=== PATIENT | female | born 1960 | race Two or more races ===

== ENCOUNTER 2022-04-25 08:54 | Outpatient (REF) | payer MEDICAID, SELFPAY ==
[2022-04-25 09:37] LABS: COVID-19 Test Negative (Negative); IDNOW Serial# 16C4AD1C
== END 2022-04-25 08:55 | disposition home or self-care (01) ==
LOC: HO.LAB 08:54
PROVIDERS: Visit Provider Internal Medicine
DX: Z20.822 Contact with and (suspected) exposure to COVID-19 (principal)
CPT/HCPCS: 87635; C9803

== ENCOUNTER 2022-07-20 17:10 | Outpatient (REF) | payer MEDICAID, SELFPAY ==
--- NOTE | ~2022-07-20 | XR_ITS ---
EXAMINATION: XR LUMBOSACRAL SPINE WITH OBLIQUES CLINICAL INFORMATION: Pain COMPARISON: Previous x-ray December 2009 TECHNIQUE: AP, both oblique, and lateral views of the lumbar spine. Lateral view of the lumbosacral junction. FINDINGS: Bone alignment is normal. No fracture or dislocation. Multilevel degenerative spondylosis. Disc space narrowing at L5-S1. Lower lumbar spine facet arthritis. XR/XR lumbar spine 4V min IMPRESSION: Degenerative changes.
--- NOTE | ~2022-07-20 | XR_ITS ---
EXAMINATION: CERVICAL AND THORACIC SPINE X-RAYS CLINICAL INFORMATION: Pain COMPARISON: Previous cervical spine x-ray from 2010 TECHNIQUE: 6 views of the cervical spine including swimmer's view and oblique views and 2 views of the thoracic spine FINDINGS: Cervical spine: Bone alignment is normal. No fracture or dislocation. Degenerative spondylosis at C5-C6 normal disc spaces. Patent right-sided neural foramen. Patent left-sided neural foramen. Normal prevertebral soft tissues. Thoracic spine: Bone alignment is normal. No fracture or dislocation. Multilevel degenerative spondylosis and degenerative disc disease greatest in the mid thoracic spine. Paraspinal soft tissues are normal. XR/XR cervical spine 5V IMPRESSION: Cervical spine: Degenerative spondylosis at C5-C6 Thoracic spine: Multilevel degenerative changes greatest in the mid thoracic spine.
--- NOTE | ~2022-07-20 | XR_ITS ---
EXAMINATION: CERVICAL AND THORACIC SPINE X-RAYS CLINICAL INFORMATION: Pain COMPARISON: Previous cervical spine x-ray from 2010 TECHNIQUE: 6 views of the cervical spine including swimmer's view and oblique views and 2 views of the thoracic spine FINDINGS: Cervical spine: Bone alignment is normal. No fracture or dislocation. Degenerative spondylosis at C5-C6 normal disc spaces. Patent right-sided neural foramen. Patent left-sided neural foramen. Normal prevertebral soft tissues. Thoracic spine: Bone alignment is normal. No fracture or dislocation. Multilevel degenerative spondylosis and degenerative disc disease greatest in the mid thoracic spine. Paraspinal soft tissues are normal. XR/XR thoracic spine 2V IMPRESSION: Cervical spine: Degenerative spondylosis at C5-C6 Thoracic spine: Multilevel degenerative changes greatest in the mid thoracic spine.
== END 2022-07-20 17:11 | disposition home or self-care (01) ==
LOC: HO.XRAY 17:10
PROVIDERS: PCP Registered Nurse; Visit Provider Registered Nurse
DX: M54.9 Dorsalgia, unspecified (principal); G89.29 Other chronic pain; M54.2 Cervicalgia; M54.50 Low back pain, unspecified
CPT/HCPCS: 72050; 72070; 72110

== ENCOUNTER 2023-02-08 16:24 | Outpatient (REF) | payer MEDICAID, SELFPAY ==
--- NOTE | ~2023-02-08 | US_ITS ---
EXAMINATION: US VENOUS ULTRASOUND WITH DOPPLER LOWER EXTREMITY, LEFT CLINICAL INFORMATION: Pain COMPARISON: None available. TECHNIQUE: Ultrasound of the deep veins is performed from the hip to the calf with compression sonography and color and pulse Doppler assessment. Spectral analysis with color-flow imaging is performed. FINDINGS: There is normal venous compression and respiratory variation and augmented flow. The visualized common femoral vein, superficial femoral vein, profunda femoral vein, popliteal vein, and the trifurcation region shows no evidence of deep venous thrombosis. There is no significant popliteal fossa cyst. If the patient's symptoms persist, followup ultrasound in 5 days 7 days might be of value to exclude proximal propagation from a non-visualized calf vein. US/US venous duplex LE LT IMPRESSION: No DVT demonstrated in the left lower extremity.
== END 2023-02-08 16:25 | disposition home or self-care (01) ==
LOC: HO.US 16:24
PROVIDERS: PCP Registered Nurse; Visit Provider Registered Nurse
DX: M79.605 Pain in left leg (principal)
CPT/HCPCS: 93971

== ENCOUNTER → 2023-02-28 19:00 | Outpatient (BNV) | payer MEDICAID, SELFPAY | PROVIDERS: Visit Provider Internal Medicine | DX: G47.33 Obstructive sleep apnea (adult) (pediatric) (principal) | CPT/HCPCS: 95810 ==

== ENCOUNTER → 2023-02-28 20:30 | Outpatient (REF) | payer MEDICAID, SELFPAY | LOC: HO.SL 20:30 | PROVIDERS: Visit Provider Registered Nurse | DX: G47.33 Obstructive sleep apnea (adult) (pediatric) (principal) | CPT/HCPCS: 95810 ==

== ENCOUNTER 2023-03-07 14:36 | Emergency (ER) | payer MEDICAID, SELFPAY ==
--- NOTE | ~2023-03-07 | XR_ITS ---
EXAMINATION: XR TOES, RIGHT CLINICAL INFORMATION: Pain, right great toe COMPARISON: None available. TECHNIQUE: 3 views of the right toes were obtained. FINDINGS: There are no fractures or dislocations. No joint effusion is identified. No bone, joint or soft tissue abnormality is demonstrated. No radiopaque foreign body. XR/XR toe RT min 2V IMPRESSION: Unremarkable plain radiographs of the right great toe.
--- NOTE | ~2023-03-07 | XR_ITS ---
EXAMINATION: XR CHEST 2 VIEW CLINICAL INFORMATION: Chest COMPARISON: 04/30/2018 TECHNIQUE: PA and lateral views of the chest obtained. FINDINGS: The lungs are clear. There are no pleural effusions. The cardiomediastinal silhouette is normal. XR/XR chest 2V IMPRESSION: No acute cardiopulmonary disease.
--- NOTE | 2023-03-07 14:40 | ECG_ITS ---
Test Reason : cp Blood Pressure : / mmHG Vent. Rate : 080 BPM Atrial Rate : 080 BPM P-R Int : 150 ms QRS Dur : 084 ms QT Int : 378 ms P-R-T Axes : 020 006 052 degrees QTc Int : 435 ms Normal sinus rhythm Normal ECG When compared with ECG of 30-APR-2018 10:06, Criteria for Septal infarct are no longer Present Referred By: Generic ED Physician Electronically Signed By:Carlos Zamora
[2023-03-07 15:18] VITALS: BP 188/91; PULSE 75; RESP 18; TEMP 36.9; O2SAT 97; BMI 39.7
[2023-03-07 15:18] LABS: MANUAL DIFF FLAG NO
[2023-03-07 15:19] LABS: Basophils Percent Auto 0.4 % (0-2); Eosinophils Absolute Auto 0.3 X10*3/uL (0.0-0.4); Eosinophils Percent Auto 2.3 % (0-4); Hematocrit 39.4 % (37.0-47.0); Hemoglobin 13.4 g/dl (12.0-16.0); Imm Gran Abs Auto 0.06 X10*3/uL (0.00-0.03); Imm Gran Pct Auto 0.5 % (0.0-0.4); Lymphocytes Absolute Auto 3.1 X10*3/uL (1.2-4.9); Lymphocytes Percent Auto 27.4 % (20-40); Mean Corpuscular Hemoglobin 28.8 pg (27.0-33.0); Mean Corpuscular Volume 84.5 fL (80.0-98.0); Mean Platelet Volume 9.5 fL (9.4-12.3); Monocytes Absolute Auto 0.8 X10*3/uL (0.1-1.2); Monocytes Percent Auto 7.5 % (2-11); Neutrophils Absolute Auto 6.9 x10*3/uL (2.0-8.3); Neutrophils Percent Auto 61.9 % (45-73); Platelet Count 240 X10*3/uL (160-400); Red Blood Count 4.66 X10*6/uL (4.20-5.50); Red Cell Distribution Width 13.3 % (11.0-16.0); White Blood Count 11.1 X10*3/uL (4.8-10.8)
--- NOTE | 2023-03-07 15:21 | ED.CHESTPAIN ---
HPI - Chest Pain General Chief Complaint: Chest Pain Stated Complaint: chest pain/ L facial numbness Related Data Allergies Allergy/AdvReac Type Severity Reaction Status Date / Time penicillin V Allergy Unknown Verified 01/12/14 00:00 Penicillins Allergy Unknown Rash Unverified 04/14/20 15:58 Sulfa (Sulfonamide Allergy Unknown Verified 01/12/14 00:00 Antibiotics) sulfamethoxazole Allergy Unknown rash Unverified 04/14/20 15:58 trimethoprim Allergy Unknown rash Unverified 04/14/20 15:58 Physical Exam Vital Signs: Vital Signs: Last Vital Signs Temp 98.5 F 03/07/23 15:18 Pulse 75 03/07/23 15:18 Resp 18 03/07/23 15:18 BP 188/91 H 03/07/23 15:18 Pulse Ox 97 03/07/23 15:18 O2 Del Method Room Air 03/07/23 15:18 BMI result Body Mass Index 39.7 Course Course Course Narrative: This is an RME: Additional HPI, ROS, PE not included below will be deferred to primary provider. This is a [id number], with a hx diabetes, hypertension, hyperlipidemia, hypothyroidism, presenting to the emergency department for evaluation of chest pain which started last night. Patient describes this chest pain as a constant midsternal pain that causes some left-sided jaw numbness and tingling. Denies any nausea or vomiting. Endorses some shortness of breath. She took 1 dose of aspirin today. Patient hypertensive at 188/91. EKG normal sinus rhythm with no ST elevation depression. Patient also reported right great toe pain after hitting it against a wall. Patient has some ttp over PIP with some ecchymosis noted, range of motion is full and intact. Plan: Labs, EKG, chest Xray pending full evaluation by primary provider in the emergency department. Patient eloped prior to being evaluated by primary provider in the main emergency department. Medical Decision Making Lab Data 03/07/23 15:08 03/07/23 15:08 Labs: Lab Results 03/07/23 03/07/23 03/07/23 Range/Units 15:08 15:08 15:08 WBC 11.1 H (4.8-10.8) X10*3/uL RBC 4.66 (4.20-5.50) X10*6/uL Hgb 13.4 (12.0-16.0) g/dl Hct 39.4 (37.0-47.0) % MCV 84.5 (80.0-98.0) fL MCH 28.8 (27.0-33.0) pg MCHC 34.0 (31.0-35.0) g/dl RDW 13.3 (11.0-16.0) % Plt Count 240 (160-400) X10*3/uL MPV 9.5 (9.4-12.3) fL Immature Gran % (Auto) 0.5 H (0.0-0.4) % Neut % (Auto) 61.9 (45-73) % Lymph % (Auto) 27.4 (20-40) % [place] % (Auto) 7.5 (2-11) % Eos % (Auto) 2.3 (0-4) % Baso % (Auto) 0.4 (0-2) % Lymph # (Auto) 3.1 (1.2-4.9) X10*3/uL [place] # (Auto) 0.8 (0.1-1.2) X10*3/uL Eos # (Auto) 0.3 (0.0-0.4) X10*3/uL Baso # (Auto) 0.0 (0.0-0.2) X10*3/uL Abs Immat Gran (auto) 0.06 H (0.00-0.03) X10*3/uL Absolute Neuts (auto) 6.9 (2.0-8.3) x10*3/uL Absolute Nucleated RBC 0.000 (0.0-0.012) X10*3/uL Nucleated RBC % (auto) 0.0 (0.0-0.2) /100WBC Sodium 141 (135-145) mmol/L Potassium 3.7 (3.3-5.1) mmol/L Chloride 110 H (96-108) mmol/L Carbon Dioxide 23 (22-29) mmol/L Anion Gap 12 (12-20) BUN 17 H (9-16) mg/dL Creatinine 0.80 (0.5-1.4) mg/dL Estim Creat Clear Calc 66.1 Estimated GFR > 60 Random Glucose 160 H (60-115) mg/dL Calcium 9.1 (8.4-10.2) mg/dL Total Bilirubin 0.3 (0.0-1.0) mg/dL AST 16 (5-31) U/L ALT 16 (0-31) U/L Alkaline Phosphatase 88 (39-117) U/L Troponin I High Sens < 2.7 (<3.5-17.0) ng/L Total Protein 7.5 (6.5-8.0) g/dL Albumin 3.8 (3.5-5.0) g/dL Discharge Plan Discharge Clinical Impression: Chest pain Patient Disposition: Elopement Interventions: ED Discharge Assessment Last Done: 03/07/23 19:45 Discharge Date/Time: 03/07/23 19:45
[2023-03-07 15:34] LABS: Alanine Aminotransferase 16 U/L (0-31); Albumin Level 3.8 g/dL (3.5-5.0); Alkaline Phosphatase 88 U/L (39-117); Anion Gap 12 (12-20); Aspartate Amino Transferase 16 U/L (5-31); Bilirubin Total 0.3 mg/dL (0.0-1.0); Blood Urea Nitrogen 17 mg/dL (9-16); Calcium 9.1 mg/dL (8.4-10.2); Carbon Dioxide 23 mmol/L (22-29); Chloride 110 mmol/L (96-108); Creatinine Clr Calc Pharmacy 66.1; Estimated Glomerular Filt Rate > 60; Glucose Random 160 mg/dL (60-115); Potassium 3.7 mmol/L (3.3-5.1); Sodium 141 mmol/L (135-145); Total Protein 7.5 g/dL (6.5-8.0)
[2023-03-07 15:53] LABS: Troponin-I High Sensitivity < 2.7 ng/L (<3.5-17.0)
== END 2023-03-07 19:45 | disposition left against medical advice (07) ==
PROVIDERS: Emergency Provider Emergency Medicine
DX: R07.89 Other chest pain (principal); R20.0 Anesthesia of skin; M79.674 Pain in right toe(s); Z79.899 Other long term (current) drug therapy
CPT/HCPCS: 36415; 71046; 73660; 80053; 84484; 85025; 93005; 99283

== ENCOUNTER → 2023-03-07 14:40 | Outpatient (BNV) | payer MEDICAID, SELFPAY | PROVIDERS: Emergency Provider Emergency Medicine; Visit Provider Internal Medicine Cardiovascular Disease | DX: R07.9 Chest pain, unspecified (principal) | CPT/HCPCS: 93010 ==

== ENCOUNTER 2023-03-14 17:49 | Outpatient (REF) | payer MEDICAID, SELFPAY | END 2023-03-14 17:50 | disposition home or self-care (01) | LOC: HO.HHCLNP 17:49 | PROVIDERS: Visit Provider Registered Nurse | DX: N30.01 Acute cystitis with hematuria (principal) | CPT/HCPCS: 87086 ==

== ENCOUNTER 2023-04-25 15:06 | Emergency (ER) | payer OTHER, MEDICAID, SELFPAY ==
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
[2023-04-25 15:30] VITALS: BP 128/68; BP 140/78; PULSE 81; PULSE 88; RESP 18; TEMP 37; O2SAT 97; O2SAT 98; BMI 42.1
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
[2023-04-25 18:36] LABS: MANUAL DIFF FLAG NO
[2023-04-25 18:45] LABS: Basophils Percent Auto 0.3 % (0-2); Eosinophils Absolute Auto 0.3 X10*3/uL (0.0-0.4); Eosinophils Percent Auto 2.9 % (0-4); Hematocrit 38.5 % (37.0-47.0); Hemoglobin 12.8 g/dl (12.0-16.0); Imm Gran Abs Auto 0.04 X10*3/uL (0.00-0.03); Imm Gran Pct Auto 0.4 % (0.0-0.4); Lymphocytes Absolute Auto 2.9 X10*3/uL (1.2-4.9); Lymphocytes Percent Auto 29.1 % (20-40); Mean Corpuscular HGB Conc 33.2 g/dl (31.0-35.0); Mean Corpuscular Hemoglobin 28.7 pg (27.0-33.0); Mean Corpuscular Volume 86.3 fL (80.0-98.0); Mean Platelet Volume 9.8 fL (9.4-12.3); Monocytes Absolute Auto 0.8 X10*3/uL (0.1-1.2); Monocytes Percent Auto 8.1 % (2-11); Neutrophils Absolute Auto 5.9 x10*3/uL (2.0-8.3); Neutrophils Percent Auto 59.2 % (45-73); Platelet Count 261 X10*3/uL (160-400); Red Blood Count 4.46 X10*6/uL (4.20-5.50); Red Cell Distribution Width 13.6 % (11.0-16.0); White Blood Count 9.9 X10*3/uL (4.8-10.8)
[2023-04-25 18:48] LABS: Anion Gap 12 (12-20); Blood Urea Nitrogen 14 mg/dL (9-16); Calcium 9.6 mg/dL (8.4-10.2); Carbon Dioxide 26 mmol/L (22-29); Chloride 108 mmol/L (96-108); Creatinine Clr Calc Pharmacy 71.1; Estimated Glomerular Filt Rate > 60; Glucose Random 126 mg/dL (60-115); Potassium 4.4 mmol/L (3.3-5.1); Sodium 142 mmol/L (135-145)
[2023-04-25] MEDS: NaPROXEN 500 MG TABLET PO (19:05)
== END 2023-04-25 20:03 | disposition home or self-care (01) ==
PROVIDERS: Registered Nurse Emergency; Emergency Provider Emergency Medicine
DX: S20.219A Contusion of unspecified front wall of thorax, initial encounter (principal); V43.52XA Car driver injured in collision with other type car in traffic accident, initial encounter; Y93.89 Activity, other specified; Y92.414 Local residential or business street as the place of occurrence of the external cause; Y99.9 Unspecified external cause status
CPT/HCPCS: 36415; 71046; 80048; 85025; 93005; 99283; 99284

== ENCOUNTER 2023-06-24 12:49 | Emergency (ER) | payer MEDICAID, SELFPAY ==
--- NOTE | ~2023-06-24 | XR_ITS ---
EXAMINATION: XR CHEST CLINICAL INFORMATION: Chest pain, cough. COMPARISON: Chest radiograph 04/25/2023. TECHNIQUE: 2 views of the chest were obtained. FINDINGS: Normal appearance of the cardiomediastinal silhouette. Minimal peribronchial thickening with some equivocal early focal airspace opacities in the right lower lobe. No pleural effusion or pneumothorax. Mild thoracic spondylosis. No acute osseous findings. XR/XR chest 2V IMPRESSION: Findings suggestive of mild small airways disease with equivocal early infiltrate in the right lower lobe. Recommend clinical correlation for atypical pneumonia and short-term follow-up radiograph.
--- NOTE | 2023-06-24 12:56 | ECG_ITS ---
Test Reason : CHEST PAIN Blood Pressure : / mmHG Vent. Rate : 077 BPM Atrial Rate : 077 BPM P-R Int : 162 ms QRS Dur : 084 ms QT Int : 390 ms P-R-T Axes : 022 020 048 degrees QTc Int : 441 ms Normal sinus rhythm Normal ECG When compared with ECG of 25-APR-2023 17:38, No significant change was found Referred By: Tasha Wheat Electronically Signed By:PILO HUA MD
[2023-06-24 13:14] VITALS: BP 178/82; PULSE 76; RESP 16; TEMP 36.4; O2SAT 97; BMI 39.5
--- NOTE | 2023-06-24 13:17 | ED_ITS ---
HPI - Chest Pain General Chief Complaint: Chest Pain Stated Complaint: Chest pain Time Seen by Provider: 06/24/23 18:37 Source: patient Mode of arrival: ambulatory Limitations: no limitations History of Present Illness HPI narrative: Patient is a 63 old female who presents emergency department for evaluation of chest pain, shortness of breath, and cough. She reports a past few days she has been experiencing a dry nonproductive cough. Yesterday night she was feeling short of breath particularly with walking. Has diffuse anterior chest pain that is exacerbated with cough/deep breathing. She also expresses concern for intermittent dysuria over the past week. She states she has chronic microscopic hematuria, or primary care doctors referring her to see a Urologist for this. She denies known sick contacts, fevers, chills, nausea, vomiting, abdominal pain, back pain, gross hematuria. Related Data Previous Rx's Medication Instructions Recorded cyclobenzaprine 5 mg tablet 5 mg PO TID PRN muscle spasm #10 04/25/23 tabs lidocaine 5 % topical patch 1 patch topical DAILY #15 ea 04/25/23 levofloxacin 750 mg tablet 750 mg PO DAILY #4 tabs 06/24/23 Allergies Allergy/AdvReac Type Severity Reaction Status Date / Time penicillin V Allergy Unknown Anaphylaxis Verified 04/25/23 15:30 Penicillins Allergy Unknown Rash Verified 04/25/23 15:30 Sulfa (Sulfonamide Allergy Unknown Anaphylaxis Verified 04/25/23 15:30 Antibiotics) sulfamethoxazole Allergy Unknown rash Verified 04/25/23 15:30 trimethoprim Allergy Unknown rash Verified 04/25/23 15:30 Review of Systems 2 Review of Systems: Yes all other systems are reviewed and are negative PMFSH Past Medical History Attestation statement: The following information was validated with the patient. Source: old records reviewed Social History Smoked in Last 30 Days: No Use of substances other than those prescribed or required for medical reasons: No Advance Directives: No Advance Directives Information Provided: No Patient : No Physical Exam 2 Vital Signs: Vital Signs: Last Vital Signs Temp 97.6 F 06/24/23 13:14 Pulse 72 06/24/23 18:51 Resp 75 H 06/24/23 18:51 BP 151/82 H 06/24/23 18:51 Pulse Ox 99 06/24/23 18:51 O2 Del Method Room Air 06/24/23 18:51 BMI result Body Mass Index 39.5 Appearance: Alert.?Oriented to person, place and time. No acute distress.?Normal affect. Eyes: Pupils equal, round and reactive to light.? ENT: Pharynx normal.?? Neck: Normal inspection.? Neck supple.?? CVS: Heart sounds normal. Normal heart rate and rhythm.? Pulses normal.?? Respiratory: No respiratory distress.? Lung sounds clear to auscultation bilaterally.??palpable tenderness of the anterior and lateral chest wall Abdomen: Soft and non-tender. Normoactive bowel sounds. Skin: Skin warm and dry.? Normal skin color.? ? Extremities: No lower extremity edema.? No calf ttp? Neuro: Moves all extremities spontaneously. Sensation intact bilaterally. No focal neuro deficits. Ambulates with normal steady gait. Course Course Course Narrative: This is a rapid medical exam. Defer additional HPI, ROS, PE to primary provider. 63-year-old female with history of hypertension, diabetes presents the ER with complaints of chest pain and shortness of breath since last evening with dry cough. Will obtain labs, chest x-ray, EKG, viral testing. Vital signs stable Medications Administered Discontinued Medications Generic Name Dose Route Start Last Admin Trade Name Freq PRN Reason Stop Dose Admin Levofloxacin 750 mg 06/24/23 18:55 06/24/23 19:17 Levofloxacin 750 Mg Tablet PO 06/24/23 18:56 750 mg ONCE ONE Administration Medical Decision Making Medical Decision Making [facility] Narrative: Patient is a 63 old female past medical history of diabetes, hypertension, hyperlipidemia, hypothyroidism presenting to emergency department for evaluation of reproducible chest pain, nonproductive cough, intermittent shortness of breath as per HPI in addition to dysuria. At the time my examination she is overall well-appearing, nontoxic, afebrile. Wells negative unlikely pulmonary embolism. High sensitive troponin obtained and is below detectable limits, EKG revealing a normal sinus rhythm with ventricular rate of 77, QTC 441, no ST elevation, no ST depression, no T-wave inversion, given duration of symptoms unlikely ACS. CBC is without leukocytosis or anemia, CMP is overall unremarkable. Chest x-ray concerning for early infiltrate in the right lower lobe, given reported symptoms concern for atypical pneumonia, reports history of anaphylaxis to penicillin in the past, therefore will treat with the Levaquin, she received initial dosing while in the emergency department, and sent remainder of 4 day prescription to patient's pharmacy. She is in no respiratory distress. Trace bacteriuria in chronic microscopic hematuria, given she is symptomatic with dysuria, Levaquin will also cover urinary tract infection, culture was sent and will be followed. Discussed worrisome signs and symptoms that would warrant re-evaluation in the emergency department. At this time she is stable for discharge home. Differential Diagnosis Differential Diagnoses: The differential diagnosis associated with the presentation includes (As noted above) Admission/Observation Consideration of admission/observation: Escalation of care including admission/observation considered (See narrative above for further detail) Lab Data MDM Lab Attestation statement: I reviewed the patient's lab results. (See narrative for further detail) 06/24/23 14:13 06/24/23 14:13 Labs: Lab Results 06/24/23 06/24/23 Range/Units 14:13 19:19 WBC 10.6 (4.8-10.8) X10*3/uL RBC 4.31 (4.20-5.50) X10*6/uL Hgb 12.4 (12.0-16.0) g/dl Hct 37.1 (37.0-47.0) % MCV 86.1 (80.0-98.0) fL MCH 28.8 (27.0-33.0) pg MCHC 33.4 (31.0-35.0) g/dl RDW 13.7 (11.0-16.0) % Plt Count 239 (160-400) X10*3/uL MPV 9.8 (9.4-12.3) fL Immature Gran % (Auto) 0.4 (0.0-0.4) % Neut % (Auto) 66.0 (45-73) % Lymph % (Auto) 23.9 (20-40) % [place] % (Auto) 6.0 (2-11) % Eos % (Auto) 3.3 (0-4) % Baso % (Auto) 0.4 (0-2) % Lymph # (Auto) 2.5 (1.2-4.9) X10*3/uL [place] # (Auto) 0.6 (0.1-1.2) X10*3/uL Eos # (Auto) 0.4 (0.0-0.4) X10*3/uL Baso # (Auto) 0.0 (0.0-0.2) X10*3/uL Abs Immat Gran (auto) 0.04 H (0.00-0.03) X10*3/uL Absolute Neuts (auto) 7.0 (2.0-8.3) x10*3/uL Absolute Nucleated RBC 0.000 (0.0-0.012) X10*3/uL Nucleated RBC % (auto) 0.0 (0.0-0.2) /100WBC PT 12.5 (11.1-13.3) SEC INR 1.0 (0.9-1.1) Sodium 141 (135-145) mmol/L Potassium 3.7 (3.3-5.1) mmol/L Chloride 110 H (96-108) mmol/L Carbon Dioxide 25 (22-29) mmol/L Anion Gap 10 L (12-20) BUN 13 (9-16) mg/dL Creatinine 0.76 (0.5-1.4) mg/dL Estim Creat Clear Calc 69.4 Estimated GFR > 60 Random Glucose 159 H (60-115) mg/dL Calcium 8.9 D (8.4-10.2) mg/dL Total Bilirubin 0.2 (0.0-1.0) mg/dL Direct Bilirubin < 0.2 (0.0-0.5) mg/dL AST 15 (5-31) U/L ALT 16 (0-31) U/L Alkaline Phosphatase 74 (39-117) U/L Troponin I High Sens < 2.7 (<3.5-17.0) ng/L Total Protein 7.1 (6.5-8.0) g/dL Albumin 3.8 (3.5-5.0) g/dL Urine Color Yellow Urine Appearance Clear Urine pH 5.5 (5.0-9.0) Ur Specific [place] 1.020 (1.005-1.025) Urine Protein Negative (Neg-Trace) mg/dL Urine Glucose (UA) Negative (Negative) mg/dL Urine Ketones Negative (Negative) mg/dL Urine Blood Moderate (2+) H (Negative) Urine Nitrite Negative (Negative) Ur Leukocyte Esterase Small (1+) H (Negative) Urine RBC 3-5 H (0-2) /HPF Urine WBC 0-5 (0-5) /HPF Ur Squamous Epith Cells 3-5 (0-2) /HPF Urine Bacteria Trace (None Seen) Hyaline Casts 0-2 (0-2) /LPF Influenza Type A (PCR) NEGATIVE (Negative) Influenza Type B (PCR) NEGATIVE (Negative) RSV RNA Qual (PCR) NEGATIVE (Negative) SARS-CoV-2 RNA (RT-PCR) NEGATIVE (Negative) Independent Interpretation I performed an independent interpretation of an: Plain X-Ray (I personally interpreted chest x-ray and agree with radiologist impression or) Radiology Impression Discussion of test interpretation with radiology: I have reviewed the radiologist's reading. Radiologist Impression: XR/XR chest 2V IMPRESSION: Findings suggestive of mild small airways disease with equivocal early infiltrate in the right lower lobe. Recommend clinical correlation for atypical pneumonia and short-term follow-up radiograph. Independent Historian Clinical information obtained from an independent historian. History obtained from or confirmed by: Spouse (Present at bedside who confirms history) External Record Review External record reviewed: Outpatient record Prescription Management I considered prescription management with: Antibiotic Discharge Plan Discharge Clinical Impression: CAP (community acquired pneumonia) Qualifiers: Laterality: right Lung location: lower lobe of lung Qualified Code(s): J18.9 - Pneumonia, unspecified organism UTI (urinary tract infection) Qualifiers: Encounter type: initial encounter Patient Disposition: Home, Self-Care Instructions: Community Acquired Pneumonia (ED) Prescriptions: New levofloxacin 750 mg tablet 750 mg PO DAILY Qty: 4 0RF No Action cyclobenzaprine 5 mg tablet 5 mg PO TID PRN (Reason: muscle spasm) Qty: 10 0RF lidocaine 5 % adhesive patch,medicated 1 patch topical DAILY Qty: 15 0RF Rx Instructions: leave on most painful area for up to 12 hrs
[2023-06-24 14:17] LABS: MANUAL DIFF FLAG NO
[2023-06-24 14:20] LABS: Basophils Percent Auto 0.4 % (0-2); Eosinophils Absolute Auto 0.4 X10*3/uL (0.0-0.4); Eosinophils Percent Auto 3.3 % (0-4); Hematocrit 37.1 % (37.0-47.0); Hemoglobin 12.4 g/dl (12.0-16.0); Imm Gran Abs Auto 0.04 X10*3/uL (0.00-0.03); Imm Gran Pct Auto 0.4 % (0.0-0.4); Lymphocytes Absolute Auto 2.5 X10*3/uL (1.2-4.9); Lymphocytes Percent Auto 23.9 % (20-40); Mean Corpuscular HGB Conc 33.4 g/dl (31.0-35.0); Mean Corpuscular Hemoglobin 28.8 pg (27.0-33.0); Mean Corpuscular Volume 86.1 fL (80.0-98.0); Mean Platelet Volume 9.8 fL (9.4-12.3); Monocytes Absolute Auto 0.6 X10*3/uL (0.1-1.2); Platelet Count 239 X10*3/uL (160-400); Red Blood Count 4.31 X10*6/uL (4.20-5.50); Red Cell Distribution Width 13.7 % (11.0-16.0); White Blood Count 10.6 X10*3/uL (4.8-10.8)
[2023-06-24 14:27] LABS: Prothrombin Time 12.5 SEC (11.1-13.3)
[2023-06-24 14:34] LABS: Alanine Aminotransferase 16 U/L (0-31); Albumin Level 3.8 g/dL (3.5-5.0); Alkaline Phosphatase 74 U/L (39-117); Anion Gap 10 (12-20); Aspartate Amino Transferase 15 U/L (5-31); Bilirubin Direct < 0.2 mg/dL (0.0-0.5); Bilirubin Total 0.2 mg/dL (0.0-1.0); Blood Urea Nitrogen 13 mg/dL (9-16); Calcium 8.9 mg/dL (8.4-10.2); Carbon Dioxide 25 mmol/L (22-29); Chloride 110 mmol/L (96-108); Creatinine Clr Calc Pharmacy 69.4; Estimated Glomerular Filt Rate > 60; Glucose Random 159 mg/dL (60-115); Potassium 3.7 mmol/L (3.3-5.1); Sodium 141 mmol/L (135-145); Total Protein 7.1 g/dL (6.5-8.0)
[2023-06-24 14:45] LABS: Troponin-I High Sensitivity < 2.7 ng/L (<3.5-17.0)
[2023-06-24 14:59] LABS: Influenza A PCR NEGATIVE (Negative); Influenza B PCR NEGATIVE (Negative); Resp Syncy Virus RNA Qual PCR NEGATIVE (Negative); SARS COV2 PCR INHOUSE NEGATIVE (Negative)
[2023-06-24 18:51] VITALS: BP 151/82; PULSE 72; RESP 75; O2SAT 99
--- NOTE | 2023-06-24 18:55 | PC.NURSE ---
a&ox3, vss and up to date at this time. nsr on the cardiac moinitor. pt c/o 11/26- substernal chest pain that radiates to LUE and left side of jaw. pt also verbalizing sob/nausea. no sob/wob noted at this time. pt able to speak in full/clear sentences w.o difficulty. respirations even and unlabored. 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 resting comfortably in no apparent distress. bedside. call landin placed within reach.
[2023-06-24] MEDS: levoFLOXacin 750 MG TABLET PO (19:17)
--- NOTE | 2023-06-24 19:19 | PC.NURSE ---
medication administered per provider order. urine obtained/sent to lab.
[2023-06-24 19:45] LABS: Appearance Urine Clear; Color Urine Yellow; Glucose Urine UA Negative (Negative); Leukocyte Esterase Urine Small (1+) (Negative); Nitrite Urine Negative (Negative); PH 5.5 (5.0-9.0); UMIC TRIGGER UACC YES; Urine Blood Moderate (2+) (Negative); Urine Ketones Negative (Negative); Urine Protein Negative (Neg-Trace)
--- NOTE | 2023-06-24 20:01 | MHC.EDTECH ---
This tech assumed care of patient at 1900,hourly rounds and vitals completed,patient is resting comfortably at this time and call landin within reach with visitor at bedside.
[2023-06-24 20:03] LABS: Bacteria Urine Trace (None Seen); Hyaline Casts Urine 0-2 /LPF (0-2); UACC Culture Trigger YES; WBC Urine 0-5 /HPF (0-5)
[2023-06-24 20:04] VITALS: BP 155/77; PULSE 72; RESP 18; TEMP 36.4; O2SAT 99
== END 2023-06-24 20:20 | disposition home or self-care (01) ==
PROVIDERS: Nurse Practitioner Family; Emergency Provider Emergency Medicine
DX: J18.8 Other pneumonia, unspecified organism (principal); N39.0 Urinary tract infection, site not specified; Z20.822 Contact with and (suspected) exposure to COVID-19; Z20.828 Contact with and (suspected) exposure to other viral communicable diseases; R06.02 Shortness of breath; E11.9 Type 2 diabetes mellitus without complications; I10 Essential (primary) hypertension; E78.5 Hyperlipidemia, unspecified
CPT/HCPCS: 0241U; 71046; 80048; 80076; 81001; 84484; 85025; 85610; 87086; 93005; 99283; 99285

== ENCOUNTER 2023-09-23 16:10 | Outpatient (REF) | payer MEDICAID, SELFPAY ==
--- NOTE | ~2023-09-23 | XR_ITS ---
EXAMINATION: XR CHEST CLINICAL INFORMATION: Rib pain anteriorly on the left side radiating to the abdomen COMPARISON: Chest x-ray on 06/24/2023 TECHNIQUE: 2 views of the chest were obtained. FINDINGS: No significant abnormality is noted involving the heart, lungs, mediastinum, bony thorax or soft tissues. XR/XR chest 2V IMPRESSION: Unremarkable examination.
== END 2023-09-23 16:11 | disposition home or self-care (01) ==
LOC: HO.HHCX 16:10
PROVIDERS: Visit Provider Student in an Organized Health Care Education/Training Program
DX: R07.81 Pleurodynia (principal)
CPT/HCPCS: 71046

== ENCOUNTER 2023-11-06 13:45 | Emergency (ER) | payer MEDICAID, SELFPAY ==
--- NOTE | ~2023-11-06 | CT_ITS ---
EXAMINATION: CT ABDOMEN AND PELVIS WITHOUT CONTRAST CLINICAL INFORMATION: Right upper quadrant abdominal pain COMPARISON: Abdominal ultrasound performed same day and CT scan from 01/23/2011 TECHNIQUE: Multidetector volumetric imaging was performed from the superior aspect of the liver through the pubic symphysis. Sagittal and coronal reformatted images were obtained on the technologist's workstation. This CT examination was performed using dose optimization techniques as appropriate, variously including the following: *Automated exposure control *Adjustment of mA and/or kV according to patient size (this includes techniques or standardized protocols for targeted exams where dose is matched to indication/reason for exam; i.e. extremities or head) *Use of iterative reconstruction technique DLP: 631 mGy-cm FINDINGS: LUNG BASES: The visualized lung bases are unremarkable. LIVER, GALLBLADDER, AND BILIARY TREE: The liver is normal in size, shape, and attenuation. No focal hepatic lesion or biliary ductal dilatation is present. Liver is decompressed. No calcified stones, wall thickening or inflammatory stranding PANCREAS: Unremarkable. SPLEEN: Calcified granuloma seen within the spleen. ADRENAL GLANDS: Unremarkable. KIDNEYS AND URETERS: The kidneys are normal in size, shape, and attenuation. No hydronephrosis, hydroureter, or calculi seen. No perinephric stranding. BLADDER: Unremarkable. GASTROINTESTINAL TRACT: The small and large bowel are unremarkable. The appendix is unremarkable. Nonspecific mesenteric stranding and small lymph nodes again seen which is unchanged compared to 2011. ABDOMINAL WALL: Small fat-containing umbilical hernia. LYMPH NODES: Normal. VASCULAR: Unremarkable. PELVIC VISCERA: The uterus and adnexa are unremarkable. OSSEOUS STRUCTURES: Posterior facet joint arthropathy is seen in the lumbar spine. CT/CT abdomen pelvis wo IV con IMPRESSION: No acute process Fleischner guidelines were followed.
--- NOTE | ~2023-11-06 | US_ITS ---
EXAMINATION: US ABDOMEN LIMITED CLINICAL INFORMATION: Right upper quadrant pain. COMPARISON: 02/10/2015 TECHNIQUE: Real-time imaging of the right upper quadrant abdominal viscera. FINDINGS: PANCREAS: Limited visualization. LIVER: There is diffuse increased liver parenchymal echogenicity, consistent with hepatic steatosis. No definite focal lesion is seen, but evaluation is limited due to poor sound beam penetration through the coarse echogenic liver parenchyma. There is no intrahepatic biliary duct dilatation seen. GALLBLADDER: The gallbladder is contracted and difficult to evaluate. COMMON BILE DUCT: Normal in caliber measuring 0.3 cm in diameter. RIGHT KIDNEY: No hydronephrosis. No renal calculi or focal parenchymal lesions. The kidney measures 10.2 cm in maximum dimension. FREE FLUID: None. US/US abdomen limited IMPRESSION: Limited evaluation of the gallbladder due to nonfasting state. Hepatic steatosis.
--- NOTE | ~2023-11-06 | XR_ITS ---
EXAMINATION: XR CHEST CLINICAL INFORMATION: Substernal chest pain COMPARISON: Previous chest x-ray August 2023 TECHNIQUE: 2 views of the chest were obtained. FINDINGS: No significant abnormality is noted involving the heart, lungs, mediastinum, bony thorax or soft tissues. Degenerative changes of the spine. XR/XR chest 2V IMPRESSION: No evidence for acute disease in the chest.
--- NOTE | 2023-11-06 13:47 | ECG_ITS ---
Test Reason : cp Blood Pressure : / mmHG Vent. Rate : 078 BPM Atrial Rate : 078 BPM P-R Int : 164 ms QRS Dur : 084 ms QT Int : 396 ms P-R-T Axes : 021 019 054 degrees QTc Int : 451 ms Normal sinus rhythm Normal ECG When compared with ECG of 24-JUN-2023 13:02, No significant change was found Referred By: Generic ED Physician Electronically Signed By:Carlos Zamora
[2023-11-06 15:01] VITALS: BP 119/59; PULSE 70; RESP 18; TEMP 36; O2SAT 97; BMI 38.9
--- NOTE | 2023-11-06 15:01 | ED_ITS ---
HPI - Chest Pain General Chief Complaint: Chest Pain Stated Complaint: chest pain Time Seen by Provider: 11/07/23 04:36 Source: patient Mode of arrival: ambulatory Limitations: no limitations History of Present Illness HPI narrative: 63-year-old female with history of diabetes mellitus, hypertension, hyperlipidemia who presents emergency department for evaluation of chest pain. Patient's pain started at 09:30 hours and woke her up from sleep. She states the pain is a sharp pain and she points to her mid sternum when asked to localize the pain. The patient had associated dizziness and shortness of breath. She denied pain radiating to her neck, jaw, arms, diaphoresis nausea or vomiting. She states she has had similar pain in the past. She denied fever, chills, rhinorrhea, cough. Patient states she has been having intermittent abdominal pain the past 2-3 days, she points to her upper abdomen when asked to localize the pain. Time my evaluation she states that her abdominal pain had resolved. Patient went to [facility] and was found to have right upper quadrant tenderness. Therefore she was referred to the emergency department for evaluation of possible biliary causes for her symptoms Related Data Previous Rx's ?Medication ?Instructions ?Recorded cyclobenzaprine 5 mg tablet 5 mg PO TID PRN muscle spasm #10 04/25/23 tabs lidocaine 5 % topical patch 1 patch topical DAILY #15 ea 04/25/23 levofloxacin 750 mg tablet 750 mg PO DAILY #4 tabs 06/24/23 Allergies Allergy/AdvReac Type Severity Reaction Status Date / Time penicillin V Allergy Unknown Anaphylaxis Verified 11/06/23 15:04 Penicillins Allergy Unknown Rash Verified 11/06/23 15:04 Sulfa (Sulfonamide Allergy Unknown Anaphylaxis Verified 11/06/23 15:04 Antibiotics) sulfamethoxazole Allergy Unknown rash Verified 11/06/23 15:04 trimethoprim Allergy Unknown rash Verified 11/06/23 15:04 Review of Systems 2 Review of Systems: Yes all other systems are reviewed and are negative [facility] Past Medical History [facility] Narrative: Social history: She denies tobacco, alcohol and drug use Social History Social History Smoked in Last 30 Days: No Use of substances other than those prescribed or required for medical reasons: No Advance Directives: No Patient : No Physical Exam 2 Vital Signs: Vital Signs: Last Vital Signs Temp 97.3 F 11/07/23 05:54 Pulse 67 11/07/23 05:54 Resp 14 11/07/23 05:54 BP 127/55 L 11/07/23 05:54 Pulse Ox 98 11/07/23 05:54 O2 Del Method Room Air 11/07/23 05:54 BMI result Body Mass Index 38.9 Vital signs were normal Exam: General: Awake, alert in no distress Head: Normocephalic, atraumatic EENT: PERRL, Lids normal, sclera normal, conjunctiva normal, nose normal , ears normal, throat without erythema or exudates Neck: Supple, no adenopathy Lung: breath sounds symmetric, no wheezing, rales or rhonchi Chest: symmetric movement, nontender Heart: regular rate and rhythm, normal S1, S2 no murmurs or rubs Abdomen: soft, mild to moderate RUQ and RLQ tenderness nondistended, normal bowel sounds Back: no vertebral tenderness, no CVAT Extremities: no deformities, moves all extremities symmetrically Neuro: Awake, alert, oriented, normal speech, cranial nerves intact, moves all extremities symmetrically Psych: Pleasant, cooperative Course Course Course Narrative: RME:?63 yo female here for eval of sharp substernal chest pain beginning after waking up from a nap today. this lasted approximately 20 minutes. took an 81mg aspirin and then went to [facility]. she was noted to have tenderness to right upper quadrant. She admits to abdominal pain for the past 3 days. Denies nausea/vomiting/diarrhea. she was sent here for concern of gallbladder pathology after she had positive Dumont's sign. Pain is not worse with eating. Labs, EKG, chest x-ray, abdominal ultrasound ordered. Full HPI, ROS and PE to be performed by the primary ED provider. Medications Administered Discontinued Medications Generic Name Dose Route Start Last Admin Trade Name Freq PRN Reason Stop Dose Admin Acetaminophen 650 mg 11/06/23 22:00 11/06/23 22:03 Acetaminophen 325 Mg Tablet PO 11/06/23 22:01 650 mg ONCE ONE Administration Medical Decision Making Medical Decision Making [facility] Narrative: 63-year-old female with history of diabetes mellitus, hypertension, hyperlipidemia who presents emergency department for evaluation of chest pain. Patient's pain started at 09:30 hours and woke her up from sleep. She states the pain is a sharp pain and she points to her mid sternum when asked to localize the pain. The patient had associated dizziness and shortness of breath. She denied pain radiating to her neck, jaw, arms, diaphoresis nausea or vomiting. Patient is also complaining of upper abdominal. She was seen at [facility] see urgent care noted to have right upper quadrant tenderness and sent to the emergency department for evaluation. Vital signs were unremarkable. Physical examination revealed no chest tenderness but she did have mild to moderate right upper and right lower quadrant tenderness. Differential diagnosis: ?Includes but is not limited to myocardial infarction, myocardial ischemia, musculoskeletal pain, gallbladder disease, biliary disease, gastritis, GERD Following evaluation was ordered: CBC, CMP, troponin, lipase, ultrasound limited, CT scan of the abdomen pelvis IV contrast, EKG Patient was initially treated with the following: Acetaminophen 650 mg orally Course: My interpretation patient's laboratory evaluation as follows: CBC was normal. CMP was normal. Lipase was normal. First troponin was below detectable limits, 3 hour repeat troponin was below detectable limits. EKG was unremarkable Right upper quadrant ultrasound revealed no significant biliary disease or other findings to explain her pain CT scan abdomen pelvis IV contrast was also unremarkable with no clear etiology for pain Patient does have fibromyalgia and this may be the cause for pain, she was advised to continue taking Tylenol for pain and to follow-up with her PCP for re-evaluation and return if her symptoms get worse Admission/Observation Consideration of admission/observation: Escalation of care including admission/observation considered Lab Data MDM Lab Attestation statement: I reviewed the patient's lab results. 11/06/23 16:41 11/06/23 16:41 Labs: Lab Results 11/06/23 11/07/23 Range/Units 16:41 04:06 WBC 11.0 H (4.8-10.8) X10*3/uL RBC 4.92 (4.20-5.50) X10*6/uL Hgb 14.3 (12.0-16.0) g/dl Hct 42.2 (37.0-47.0) % MCV 85.8 (80.0-98.0) fL MCH 29.1 (27.0-33.0) pg MCHC 33.9 (31.0-35.0) g/dl RDW 13.7 (11.0-16.0) % Plt Count 258 (160-400) X10*3/uL MPV 9.8 (9.4-12.3) fL Immature Gran % (Auto) 0.5 H (0.0-0.4) % Neut % (Auto) 59.5 (45-73) % Lymph % (Auto) 30.1 (20-40) % [place] % (Auto) 6.8 (2-11) % Eos % (Auto) 2.7 (0-4) % Baso % (Auto) 0.4 (0-2) % Lymph # (Auto) 3.3 (1.2-4.9) X10*3/uL [place] # (Auto) 0.8 (0.1-1.2) X10*3/uL Eos # (Auto) 0.3 (0.0-0.4) X10*3/uL Baso # (Auto) 0.0 (0.0-0.2) X10*3/uL Abs Immat Gran (auto) 0.05 H (0.00-0.03) X10*3/uL Absolute Neuts (auto) 6.6 (2.0-8.3) x10*3/uL Absolute Nucleated RBC 0.000 (0.0-0.012) X10*3/uL Nucleated RBC % (auto) 0.0 (0.0-0.2) /100WBC Sodium 141 (135-145) mmol/L Potassium 4.1 (3.3-5.1) mmol/L Chloride 109 H (96-108) mmol/L Carbon Dioxide 25 (22-29) mmol/L Anion Gap 11 L (12-20) BUN 20 H (9-16) mg/dL Creatinine 0.79 (0.5-1.4) mg/dL Estim Creat Clear Calc 66.1 Estimated GFR > 60 Random Glucose 137 H (60-115) mg/dL Calcium 9.3 (8.4-10.2) mg/dL Magnesium 1.9 (1.6-2.6) mg/dL Total Bilirubin 0.2 (0.0-1.0) mg/dL AST 15 (5-31) U/L ALT 17 (0-31) U/L Alkaline Phosphatase 94 (39-117) U/L Troponin I High Sens < 2.7 < 2.7 (<3.5-17.0) ng/L Total Protein 8.1 H (6.5-8.0) g/dL Albumin 4.0 (3.5-5.0) g/dL Lipase 34 (8-78) U/L Independent Interpretation I performed an independent interpretation of an: EKG Interpretation: My independent interpretation patient's 12 EKG done that 15:57 hours is as follows: Normal sinus rhythm with a rate of 78, normal TN interval, QRS duration QTC interval, no ST segment elevation, no ST segment depression, no significant T-wave abnormalities, no PACs, no PVCs-this is a normal EKG Radiology Impression Discussion of test interpretation with radiology: I have reviewed the radiologist's reading. Radiologist Impression: US abdomen limited IMPRESSION: Limited evaluation of the gallbladder due to nonfasting state. Hepatic steatosis. Dictated By: Blanco Leon MD CT abdomen pelvis wo IV con IMPRESSION: No acute process Fleischner guidelines were followed. Dictated By: Jose Ellis MD XR chest 2V IMPRESSION: No evidence for acute disease in the chest. Dictated By: Wanda Kovacs MD Chronic Conditions Patient?s care impacted by: Diabetes, Hypertension and Other (Fibromyalgia) Discharge Plan Discharge Clinical Impression: Chest pain, Abdominal pain Patient Disposition: Home, Self-Care Instructions: Chest Pain (ED) Additional Instructions: Your CT scan of the abdomen pelvis, abdominal ultrasound and chest x-rays were normal. The EKG did not reveal any evidence for heart attack and your troponins were negative which is very reassuring. At this time I believe that your pain is due to either your fibromyalgia or muscle/joint pain of your chest. Continue taking your medications as prescribed Take Tylenol (acetaminophen) 500 mg pills, 2 pills every 6 hours as needed for pain or fever. Follow-up with your doctor in 2 days. Please return to the emergency department if your symptoms get worse or if you develop any symptoms that are concerning to you. Prescriptions: No Action levofloxacin 750 mg tablet 750 mg PO DAILY Qty: 4 0RF cyclobenzaprine 5 mg tablet 5 mg PO TID PRN (Reason: muscle spasm) Qty: 10 0RF lidocaine 5 % adhesive patch,medicated 1 patch topical DAILY Qty: 15 0RF Rx Instructions: leave on most painful area for up to 12 hrs Interventions: ED Discharge Assessment Last Done: 11/07/23 05:54 Discharge Date/Time: 11/07/23 05:01 Print Language: Arabic
[2023-11-06 16:46] LABS: MANUAL DIFF FLAG NO
[2023-11-06 16:47] LABS: Basophils Percent Auto 0.4 % (0-2); Eosinophils Absolute Auto 0.3 X10*3/uL (0.0-0.4); Eosinophils Percent Auto 2.7 % (0-4); Hematocrit 42.2 % (37.0-47.0); Hemoglobin 14.3 g/dl (12.0-16.0); Imm Gran Abs Auto 0.05 X10*3/uL (0.00-0.03); Imm Gran Pct Auto 0.5 % (0.0-0.4); Lymphocytes Absolute Auto 3.3 X10*3/uL (1.2-4.9); Lymphocytes Percent Auto 30.1 % (20-40); Mean Corpuscular HGB Conc 33.9 g/dl (31.0-35.0); Mean Corpuscular Hemoglobin 29.1 pg (27.0-33.0); Mean Corpuscular Volume 85.8 fL (80.0-98.0); Mean Platelet Volume 9.8 fL (9.4-12.3); Monocytes Absolute Auto 0.8 X10*3/uL (0.1-1.2); Monocytes Percent Auto 6.8 % (2-11); Neutrophils Absolute Auto 6.6 x10*3/uL (2.0-8.3); Neutrophils Percent Auto 59.5 % (45-73); Platelet Count 258 X10*3/uL (160-400); Red Blood Count 4.92 X10*6/uL (4.20-5.50); Red Cell Distribution Width 13.7 % (11.0-16.0)
[2023-11-06 17:11] LABS: Alanine Aminotransferase 17 U/L (0-31); Alkaline Phosphatase 94 U/L (39-117); Anion Gap 11 (12-20); Aspartate Amino Transferase 15 U/L (5-31); Bilirubin Total 0.2 mg/dL (0.0-1.0); Blood Urea Nitrogen 20 mg/dL (9-16); Calcium 9.3 mg/dL (8.4-10.2); Carbon Dioxide 25 mmol/L (22-29); Chloride 109 mmol/L (96-108); Creatinine Clr Calc Pharmacy 66.1; Estimated Glomerular Filt Rate > 60; Glucose Random 137 mg/dL (60-115); Lipase 34 U/L (8-78); Magnesium 1.9 mg/dL (1.6-2.6); Potassium 4.1 mmol/L (3.3-5.1); Sodium 141 mmol/L (135-145); Total Protein 8.1 g/dL (6.5-8.0)
[2023-11-06 17:20] LABS: Troponin-I High Sensitivity < 2.7 ng/L (<3.5-17.0)
[2023-11-06 18:04] VITALS: BP 146/66; PULSE 75; RESP 18; TEMP 36.7; O2SAT 97
[2023-11-06] MEDS: Acetaminophen 325 MG TABLET 650 MG PO (22:03)
[2023-11-06 22:04] VITALS: BP 158/85; PULSE 66; RESP 18; TEMP 36.8; O2SAT 97
[2023-11-07 00:46] VITALS: BP 149/59; PULSE 69; RESP 17; TEMP 36.3; O2SAT 100
[2023-11-07 01:37] VITALS: PULSE 80
[2023-11-07 04:33] LABS: Troponin-I High Sensitivity < 2.7 ng/L (<3.5-17.0)
[2023-11-07 04:38] VITALS: BP 137/55; PULSE 72; RESP 17; TEMP 36.3; O2SAT 98
[2023-11-07 05:54] VITALS: BP 127/55; PULSE 67; RESP 14; TEMP 36.3; O2SAT 98
== END 2023-11-07 05:01 | disposition home or self-care (01) ==
PROVIDERS: Physician Assistant Medical; Emergency Provider Emergency Medicine Emergency Medical Services; PCP Family Medicine
DX: R07.89 Other chest pain (principal); R10.30 Lower abdominal pain, unspecified; R06.02 Shortness of breath; R42 Dizziness and giddiness; I10 Essential (primary) hypertension; Z79.899 Other long term (current) drug therapy
CPT/HCPCS: 36415; 71046; 74176; 76705; 80053; 83690; 83735; 84484; 85025; 93005; 99284; 99285

== ENCOUNTER → 2023-11-06 13:47 | Outpatient (BNV) | payer MEDICAID, SELFPAY | PROVIDERS: Emergency Provider Emergency Medicine Emergency Medical Services; PCP Family Medicine; Visit Provider Internal Medicine Cardiovascular Disease | DX: R07.9 Chest pain, unspecified (principal) | CPT/HCPCS: 93010 ==

== ENCOUNTER 2023-11-26 01:05 | Emergency (ER) | payer MEDICAID, SELFPAY ==
[2023-11-26 01:21] VITALS: BP 153/89; PULSE 72; RESP 18; TEMP 36.7; O2SAT 98; BMI 37.1
[2023-11-26 01:38] LABS: MANUAL DIFF FLAG NO
[2023-11-26 01:39] LABS: Basophils Percent Auto 0.3 % (0-2); Eosinophils Absolute Auto 0.4 X10*3/uL (0.0-0.4); Eosinophils Percent Auto 2.6 % (0-4); Hematocrit 37.2 % (37.0-47.0); Hemoglobin 12.9 g/dl (12.0-16.0); Imm Gran Abs Auto 0.06 X10*3/uL (0.00-0.03); Imm Gran Pct Auto 0.5 % (0.0-0.4); Lymphocytes Absolute Auto 4.3 X10*3/uL (1.2-4.9); Lymphocytes Percent Auto 32.8 % (20-40); Mean Corpuscular HGB Conc 34.7 g/dl (31.0-35.0); Mean Corpuscular Hemoglobin 29.1 pg (27.0-33.0); Mean Platelet Volume 9.5 fL (9.4-12.3); Monocytes Percent Auto 7.6 % (2-11); Neutrophils Absolute Auto 7.5 x10*3/uL (2.0-8.3); Neutrophils Percent Auto 56.2 % (45-73); Platelet Count 238 X10*3/uL (160-400); Red Blood Count 4.43 X10*6/uL (4.20-5.50); Red Cell Distribution Width 13.9 % (11.0-16.0); White Blood Count 13.3 X10*3/uL (4.8-10.8)
[2023-11-26 01:50] LABS: Appearance Urine Cloudy; Color Urine Yellow; Glucose Urine UA Negative (Negative); Leukocyte Esterase Urine Large (3+) (Negative); Nitrite Urine Negative (Negative); UMIC TRIGGER UACC YES; Urine Blood Moderate (2+) (Negative); Urine Ketones Negative (Negative); Urine Protein Negative (Neg-Trace)
[2023-11-26 01:55] LABS: Bacteria Urine Trace (None Seen); Hyaline Casts Urine 0-2 /LPF (0-2); UACC Culture Trigger YES; WBC Urine >50 /HPF (0-5)
[2023-11-26 01:56] LABS: Alanine Aminotransferase 16 U/L (0-31); Albumin Level 3.8 g/dL (3.5-5.0); Alkaline Phosphatase 93 U/L (39-117); Anion Gap 13 (12-20); Aspartate Amino Transferase 15 U/L (5-31); Bilirubin Total 0.2 mg/dL (0.0-1.0); Blood Urea Nitrogen 16 mg/dL (9-16); Calcium 8.8 mg/dL (8.4-10.2); Carbon Dioxide 23 mmol/L (22-29); Chloride 108 mmol/L (96-108); Creatinine Clr Calc Pharmacy 74.9; Estimated Glomerular Filt Rate > 60; Glucose Random 134 mg/dL (60-115); Lipase 18 U/L (8-78); Potassium 3.5 mmol/L (3.3-5.1); Sodium 140 mmol/L (135-145); Total Protein 7.7 g/dL (6.5-8.0)
--- NOTE | 2023-11-26 01:57 | ED.ABDPAIN ---
HPI - Abdominal Pain General Chief Complaint: Abdominal Pain Stated Complaint: Abd pain Time Seen by Provider: 11/26/23 01:53 Source: patient and old records reviewed Mode of arrival: ambulatory Limitations: no limitations History of Present Illness HPI narrative: 63 yo female with chronic abdominal pain should be on PPI but has no refills here with c/o abdominal pain when she eats does not take NSAIDs just had US and CT scan of abdomen that did not show acute findings on 11/05. She comes in with c/o persistent symptoms and acid symptoms. MD elicited complaint: abdominal pain Pertinent past history: gastritis Onset (ago): month(s) Pain Consistency: intermittent Location: epigastric Severity: moderate Quality: fullness and burning Radiation: none Migration to: no migration Exacerbating factors: eating Relieving factors: nothing Context: history of similar episodes Associated symptoms: denies other symptoms Related Data Previous Rx's ?Medication ?Instructions ?Recorded cyclobenzaprine 5 mg tablet 5 mg PO TID PRN muscle spasm #10 04/25/23 tabs lidocaine 5 % topical patch 1 patch topical DAILY #15 ea 04/25/23 levofloxacin 750 mg tablet 750 mg PO DAILY #4 tabs 06/24/23 nitrofurantoin 100 mg PO BID 7 days #14 caps 11/26/23 monohydrate/macrocrystals 100 mg capsule (Macrobid) omeprazole 40 mg capsule,delayed 40 mg PO DAILY #30 caps 11/26/23 release sucralfate 100 mg/mL oral 10 ml PO BID 10 days #200 mL 11/26/23 suspension (Carafate) Allergies Allergy/AdvReac Type Severity Reaction Status Date / Time penicillin V Allergy Unknown Anaphylaxis Verified 11/26/23 01:23 Penicillins Allergy Unknown Rash Verified 11/26/23 01:23 Sulfa (Sulfonamide Allergy Unknown Anaphylaxis Verified 11/26/23 01:23 Antibiotics) sulfamethoxazole Allergy Unknown rash Verified 11/26/23 01:23 trimethoprim Allergy Unknown rash Verified 11/26/23 01:23 Review of Systems Review of Systems Constitutional : No Weight loss, No Fever, No Chills ENT/Mouth : No sore throat, No Rhinorrhea Eyes: No Swelling, No Redness Cardiovascular : No Chest Pain, No SOB, NoEdema Respiratory : No Cough, No Sputum, No Wheezing Gastrointestinal : no Nausea, no Vomiting, no Diarrhea, positive abdominal Pain, No Hematochezia, No Melena Genitourinary : No Dysuria, No Urinary Frequency, No Hematuria, No Urgency Musculoskeletal : No joint pain, No Myalgias, No Joint Swelling Skin : No Skin Lesions, No rash Neuro : No Weakness, No Numbness, No Dizziness, No Headache Psych : No Anxiety/Panic, No Depression All other systems reviewed and are negative. [facility] Past Medical History Attestation statement: The following information was validated with the patient. Source: old records reviewed Medical History (Updated 11/26/23 @ 02:07 by Parisa Vallejo DO) Gastritis Social History Social History (Updated 11/26/23 @ 02:07 by Parisa Vallejo DO) Patient Tobacco Use Status: Never used Tobacco Physical Exam ED Vital Signs: Vital Signs - 24 hr 11/26/23 01:21 Temperature 98.0 F Pulse Rate 72 Respiratory Rate 18 Blood Pressure 153/89 H Pulse Oximetry 98 Oxygen Delivery Method Room Air BMI result Body Mass Index 37.1 Appearance: Alert. Oriented X3. No acute distress. Eyes: Pupils equal, round and reactive to light. ENT: Pharynx normal. Neck: Normal inspection. Neck supple. CVS: Normal heart rate and rhythm. Pulses normal. Respiratory: No respiratory distress. Breath sounds normal. Abdomen: Soft and mild epigastric ttp Skin: Skin warm and dry. Normal skin color. Normal skin turgor. Extremities: No lower extremity edema. No calf ttp Neuro: Oriented X 3. No motor deficit. No sensory deficit. Medical Decision Making Medical Decision Making [facility] Narrative: 63 yo female with PMH of gastritis and GERD no longer on PPI here with c/o increased acid production at this time c/o abdominal pain just had CT scan and US on 11/05 negative for same symptoms that have been going on for months at this time will start on PPI and carafate also has UTI will treat with oral antibiotics has GI appointment in December can follow up as outpatient. Differential Diagnosis Differential Diagnoses: The differential diagnosis associated with the presentation includes gastritis, PUD Admission/Observation Consideration of admission/observation: Escalation of care including admission/observation considered just had negative workup able to tolerate PO not toxic Lab Data [facility] Lab Attestation statement: I reviewed the patient's lab results. 11/26/23 01:33 11/26/23 01:33 Labs: Lab Results 11/26/23 11/26/23 Range/Units 01:33 01:42 WBC 13.3 H (4.8-10.8) X10*3/uL RBC 4.43 (4.20-5.50) X10*6/uL Hgb 12.9 (12.0-16.0) g/dl Hct 37.2 (37.0-47.0) % MCV 84.0 (80.0-98.0) fL MCH 29.1 (27.0-33.0) pg MCHC 34.7 (31.0-35.0) g/dl RDW 13.9 (11.0-16.0) % Plt Count 238 (160-400) X10*3/uL MPV 9.5 (9.4-12.3) fL Immature Gran % (Auto) 0.5 H (0.0-0.4) % Neut % (Auto) 56.2 (45-73) % Lymph % (Auto) 32.8 (20-40) % [place] % (Auto) 7.6 (2-11) % Eos % (Auto) 2.6 (0-4) % Baso % (Auto) 0.3 (0-2) % Lymph # (Auto) 4.3 (1.2-4.9) X10*3/uL [place] # (Auto) 1.0 (0.1-1.2) X10*3/uL Eos # (Auto) 0.4 (0.0-0.4) X10*3/uL Baso # (Auto) 0.0 (0.0-0.2) X10*3/uL Abs Immat Gran (auto) 0.06 H (0.00-0.03) X10*3/uL Absolute Neuts (auto) 7.5 (2.0-8.3) x10*3/uL Absolute Nucleated RBC 0.000 (0.0-0.012) X10*3/uL Nucleated RBC % (auto) 0.0 (0.0-0.2) /100WBC Sodium 140 (135-145) mmol/L Potassium 3.5 (3.3-5.1) mmol/L Chloride 108 (96-108) mmol/L Carbon Dioxide 23 (22-29) mmol/L Anion Gap 13 (12-20) BUN 16 (9-16) mg/dL Creatinine 0.74 (0.5-1.4) mg/dL Estim Creat Clear Calc 74.9 Estimated GFR > 60 Random Glucose 134 H (60-115) mg/dL Calcium 8.8 (8.4-10.2) mg/dL Total Bilirubin 0.2 (0.0-1.0) mg/dL AST 15 (5-31) U/L ALT 16 (0-31) U/L Alkaline Phosphatase 93 (39-117) U/L Total Protein 7.7 (6.5-8.0) g/dL Albumin 3.8 (3.5-5.0) g/dL Lipase 18 (8-78) U/L Urine Color Yellow Urine Appearance Cloudy Urine pH 6.0 (5.0-9.0) Ur Specific [place] 1.020 (1.005-1.025) Urine Protein Negative (Neg-Trace) mg/dL Urine Glucose (UA) Negative (Negative) mg/dL Urine Ketones Negative (Negative) mg/dL Urine Blood Moderate (2+) H (Negative) Urine Nitrite Negative (Negative) Ur Leukocyte Esterase Large (3+) H (Negative) Urine RBC 6-10 H (0-2) /HPF Urine WBC >50 H (0-5) /HPF Ur Squamous Epith Cells 6-10 (0-2) /HPF Urine Bacteria Trace (None Seen) Hyaline Casts 0-2 (0-2) /LPF External Record Review External record reviewed: Outpatient record Prescription Management I considered prescription management with: Antibiotic and Other Discharge Plan Discharge Clinical Impression: Gastritis, Acute UTI Patient Disposition: Home, Self-Care Instructions: Gastritis (ED), Urinary Tract Infection in Women (ED) Additional Instructions: tylenol is okay please follow up with your GI doctor as planned. eat a bland diet. return for fevers, severe pain or worsening symptoms Prescriptions: New nitrofurantoin monohyd/m-cryst [Macrobid] 100 mg capsule 100 mg PO BID 7 Days Qty: 14 0RF Rx Instructions: must administer with a meal/food omeprazole 40 mg capsule,delayed release(DR/EC) 40 mg PO DAILY Qty: 30 1RF sucralfate [Carafate] 100 mg/mL suspension 10 ml PO BID 10 Days Qty: 200 0RF No Action levofloxacin 750 mg tablet 750 mg PO DAILY Qty: 4 0RF cyclobenzaprine 5 mg tablet 5 mg PO TID PRN (Reason: muscle spasm) Qty: 10 0RF lidocaine 5 % adhesive patch,medicated 1 patch topical DAILY Qty: 15 0RF Rx Instructions: leave on most painful area for up to 12 hrs Print Language: Mohawk
[2023-11-26] MEDS: Nitrofurantoin Monohyd/M-Cryst 100 MG CAPSULE PO (02:06)
[2023-11-26] MEDS: Magnesium Hydrox/Alum Hydrox 30 ML ORAL.SUSP 15 ML PO (02:06)
[2023-11-26] MEDS: Omeprazole 20 MG CAPSULE.DR PO (02:06)
[2023-11-26 02:10] VITALS: BP 151/81; PULSE 72; RESP 18; TEMP 36.7; O2SAT 98
[2023-11-26 02:15] LABS: Influenza A PCR NEGATIVE (Negative); Influenza B PCR NEGATIVE (Negative); Resp Syncy Virus RNA Qual PCR NEGATIVE (Negative); SARS COV2 PCR INHOUSE NEGATIVE (Negative)
[2023-11-26 02:59] VITALS: BP 151/81; PULSE 72; RESP 18; TEMP 36.7; O2SAT 98
== END 2023-11-26 03:03 | disposition home or self-care (01) ==
PROVIDERS: Emergency Provider Emergency Medicine; PCP Family Medicine
DX: K29.70 Gastritis, unspecified, without bleeding (principal); N39.0 Urinary tract infection, site not specified
CPT/HCPCS: 0241U; 80053; 81001; 83690; 85025; 87086; 99283

== ENCOUNTER 2024-01-07 12:14 | Outpatient (REF) | payer MEDICAID, SELFPAY ==
--- NOTE | ~2024-01-07 | MM_ITS ---
EXAMINATION: BONE DENSITOMETRY CLINICAL INDICATION: Screening for osteoporosis. COMPARISON: This is the patient's baseline examination. TECHNIQUE: Using a zealot network DXA System (software version: 13.1) manufactured by [employer], dual-energy x-ray absorptiometry was performed of the lumbar spine and left hip. The images are of good technical quality. Summary results are attached. FINDINGS: LEFT FEMUR, NECK: BMD 0.808 g/cm2, Z-score -0.7, T-score -1.7, osteopenia. LEFT FEMUR, TOTAL: BMD 1.053 g/cm2, Z-score 1.0, T-score 0.4, normal. AP SPINE L1-L4: BMD 1.108 g/cm2, Z-score 0.3, T-score -0.6, normal. IDENTIFIED RISK FACTORS: Menopause, height loss, family history (parent hip fracture). HISTORY OF FRACTURE: None listed. MEDICATIONS: None listed. MM/XR DEXA axial skeleton IMPRESSION: 1. DIAGNOSIS: Osteopenia based on the lowest T-score value of -1.7 in the femoral neck applying World Health Organization criteria. 2. 10-YEAR FRACTURE RISK PREDICTION, FRAX: Major osteoporotic fracture (clinical spine, forearm, hip or shoulder) 9.2%. Hip fracture 0.5%. 3. Treatment Recommendations: NOF guidelines recommend consideration for treatment in postmenopausal women and men age 50 and older presenting with the following: -A hip or vertebral (clinical or morphometric) fracture. -T-score less than or equal to -2.5 at the femoral neck or spine after appropriate evaluation to exclude secondary causes. -Low bone mass at the hip or spine and a 10-year fracture probability by FRAX of greater than or equal to 3% for hip fracture or greater than or equal to 20% for major osteoporotic fracture based on the [place] adapted WHO algorithm. 4. Other Recommendations: All treatment decisions require clinical judgment and consideration of individual patient factors, including patient preferences, comorbidities, previous drug use, risk factors not captured in the FRAX model (e.g. frailty, falls, vitamin D deficiency, increased bone turnover, interval significant decline in bone density) and possible under or overestimation of fracture risk by FRAX. Additional medical evaluation for secondary cause of low bone mineral density may be appropriate. FUTURE SCAN RECOMMENDATION: People with diagnosed cases of osteoporosis or at high risk for fracture should have regular bone mineral density tests. For patients eligible for Medicare, routine testing is allowed once every 2 years. The testing frequency can be increased to one year for patients who have rapidly progressing disease, those who are receiving or discontinuing medical therapy to restore bone mass, or have additional risk factors.
== END 2024-01-07 12:15 | disposition home or self-care (01) ==
LOC: HO.MAMMO 12:14
PROVIDERS: PCP Family Medicine; Visit Provider Family Medicine
DX: Z12.31 Encounter for screening mammogram for malignant neoplasm of breast (principal); Z13.820 Encounter for screening for osteoporosis; Z78.0 Asymptomatic menopausal state
CPT/HCPCS: 77063; 77067; 77080

== ENCOUNTER → 2024-01-07 13:00 | Outpatient (BNV) | payer MEDICARE, MEDICAID, SELFPAY | PROVIDERS: PCP Family Medicine; Visit Provider Radiology Diagnostic Radiology | DX: Z12.31 Encounter for screening mammogram for malignant neoplasm of breast (principal) | CPT/HCPCS: 77063; 77067 ==

== ENCOUNTER 2024-01-07 15:30 | Outpatient (REF) | payer MEDICAID, SELFPAY ==
--- NOTE | 2024-01-07 16:13 | MHC.AU.MED ---
Medical Clearance for Hearing Instrumentation Date: 01/07/24 Patient Name: Lia Deleon Date of : 1960 Primary Care Provider: Vivien Ohara MD We have seen your patient on 01/07/24 and have determined that they are a candidate for amplification (See accompanying report). Specifically, they would benefit from: Hearing aid use in both ears There is a statute that addresses Medical Evaluation Requirements prior to fitting a patient with a hearing aid. According to [place] statute 265 CMR:6.03(1), (a) General. Except as provided in 265 CMR 6.03(1)(b), a neon glass bender shall not sell a hearing aid unless the prospective user has presented to the neon glass bender a written statement signed by a licensed physician that states that the patient's hearing loss has been medically evaluated and the patient may be considered a candidate for a hearing aid. The medical evaluation must have taken place within the preceding six months. Please note: Due to the [place] Statute referenced above, we cannot accept a signature other than that of a licensed physician. GRAIN TRIMMER and PA signatures cannot be accepted. I am in agreement with the above recommendation. There is no medical contraindication for hearing instrumentation. Physician Signature Date Physician Name (Printed)
--- NOTE | 2024-01-08 09:34 | MHC.AU.HA1 ---
Hearing Aid Evaluation Date of Visit: 01/07/24 Historical Information: Description of Hearing: Within normal sloping to moderately-severe rising to mild sensorineural hearing loss, bilaterally Summary: Lia is ready to pursue amplification to help ease some of her communication difficulties. Over the past year, she has had increasing difficulty understanding speech. Lia reported she is always asking for repetition and her daughter, Ananya, mentioned she needs to be [id number] in order to fully understand a conversation. 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 Discussed pros and cons of different styles. Opted to trial rechargeable RITEs with open domes. Interested in bluetooth - currently has iPhone but reportedly in the process of purchasing new Samsung cellphone. Hearing Aid Prescription: Based on the individual?s shared listening needs, communication environments, dexterity, desire for connectivity, and personal preferences, the following prescription for amplification has been made: Right ear: Make, Model, Color: Phonak Audeo L70-R Color: Sand Beige Battery Size: Rechargeable Track Dresser/Slim Tube: 2M Type of Earmold/Dome/CShell/SlimTip: Medium open dome Left ear: Left ear prescription to be same as Right Hearing Aid above: Make, Model, Color: Phonak Audeo L70-R Color: Sand Beige Battery Size: Rechargeable Track Dresser/Slim Tube: 2M Type of Earmold/Dome/CShell/SlimTip: Medium open dome Accessories/Assistive Technology: Forgesmith Plan of Care: Patient wishes to purchase hearing aids as prescribed Action Taken/Action Needed: Medical Clearance to be requested from PCP/ENT. Hearing Instrument Fitting to be scheduled when materials arrive Primary Diagnosis: H90.3 Bilateral Sensorineural Hearing Loss Signature: Provider: Talon Grover, [facility]
== END 2024-01-07 15:31 | disposition home or self-care (01) ==
LOC: HO.SH 15:30
PROVIDERS: Visit Provider Family Medicine
DX: H90.3 Sensorineural hearing loss, bilateral (principal)
CPT/HCPCS: 77063; 77067; 77080; 92557; 92567; 92591

== ENCOUNTER 2024-01-21 14:23 | Outpatient (REF) | payer MEDICARE, MEDICAID, SELFPAY ==
--- NOTE | 2024-01-21 15:04 | MHC.AU.HA2 ---
Hearing Instrument Fitting- Adult- Binaural Date of Visit: 01/21/24 Hearing Instruments Dispensed: Right Ear: Make, Model, Color, Serial Number: Ana M De Jesus L70-R SN: [id number] Color: Sand Beige Chemical Worker Repair Warranty: 02/10/2027 Chemical Worker Loss and Damage Warranty: 02/10/2027 [facility] Service Plan: 01/20/2025 Battery Size: Rechargeable Technical Support Engineer/Slim Tube: 2M Earmold/Dome/CShell/SlimTip: Medium open dome (no retention tail) Type of Wax Guard: CeruShield Left Ear: Make, Model, Color, Serial Number: Ana M Javedo L70-R SN: [id number] Color: Elisa Beige Chemical Worker Repair Warranty: 02/10/2027 Chemical Worker Loss and Damage Warranty: 02/10/2027 [facility] Service Plan: 01/20/2025 Battery Size: Rechargeable Technical Support Engineer/Slim Tube: 2M Earmold/Dome/CShell/SlimTip: Medium open dome (no retention tail) Type of Wax Guard: CeruShield Accessories/Assistive Technology: Phonak custodian manager ease SN: [id number] Summary of Fitting: Ran feedback analyzer and real ear measures. Comfortable at real ear settings. Discussed care, use, and rechargeability including manually turning on/off, VC use, and changing domes and wax guards. Practiced insertion and removal. Explained importance of daily consistent use in acclimating to hearing aids. No interest in bluetooth at this time. Lia reported her insurance is changing next month. She will update the administrative assistant front desk when she knows what her new insurance will be. Recommendations: A hearing instrument follow-up was scheduled. Diagnosis Code(s): Primary Diagnosis: H90.3 Bilateral Sensorineural Hearing Loss Signature: Provider: Talon Grover, [facility]
== END 2024-01-21 14:24 | disposition home or self-care (01) ==
LOC: HO.HAP 14:23
PROVIDERS: Visit Provider Family Medicine
DX: Z46.1 Encounter for fitting and adjustment of hearing aid (principal); H90.3 Sensorineural hearing loss, bilateral
CPT/HCPCS: V5011; V5020; V5160; V5261

== ENCOUNTER 2024-04-16 15:02 | Outpatient (REF) | payer OTHER, SELFPAY ==
[2024-04-16 16:55] LABS: Urine Cytology See Pathology rpt
== END 2024-04-16 15:03 | disposition home or self-care (01) ==
LOC: HO.LAB 15:02
PROVIDERS: PCP Family Medicine; Visit Provider Urology
DX: R31.9 Hematuria, unspecified (principal); R35.0 Frequency of micturition; R32 Unspecified urinary incontinence; Z87.440 Personal history of urinary (tract) infections; N39.0 Urinary tract infection, site not specified
CPT/HCPCS: 51798; 81003; 88112; 99202

== ENCOUNTER 2024-04-16 15:02 | Outpatient (AMB) | payer OTHER, SELFPAY ==
--- NOTE | 2024-04-16 15:18 | MHC.OFFVIS ---
Intake Visit Reasons: mixed stress and urge incontinence/PVR Intake Note: Patient is present for mixed stress and urge incontinence/pvr Urology Medication:macrobid Antibiotic Allergy:penicilliins, sulfa Blood Thinner:none todays pvr: 0ml's [employer] Required: No Allergies penicillin V Allergy (Unknown, Verified 04/16/24 15:24) Anaphylaxis Penicillins Allergy (Unknown, Verified 04/16/24 15:24) Rash Sulfa (Sulfonamide Antibiotics) Allergy (Unknown, Verified 04/16/24 15:24) Anaphylaxis sulfamethoxazole Allergy (Unknown, Verified 04/16/24 15:24) rash trimethoprim Allergy (Unknown, Verified 04/16/24 15:24) rash Medication List - Last Reconciled 04/16/24 by Nikunj Simon MD cranberry extract 425 mg PO BID cyclobenzaprine 5 mg PO TID PRN levofloxacin 750 mg PO DAILY lidocaine 5% 1 patch topical DAILY omeprazole 40 mg PO DAILY sucralfate (Carafate) 10 mL PO BID 10 days tolterodine ER 4 mg PO DAILY HPI Comments Details: Lia is here with complaints of urinary incontinence and urinary frequency. She states that she has had UTIs in the past. Urinalysis-microscopic hematuria. I reviewed CT abdomen and pelvis without IV contrast 11/06/23, kidneys within normal limits negative for kidney stones or masses. I have discussed further evaluation with cystoscopy, and urine for cytology. Will trial anticholinergic tolterodine 4 mg daily. I have also recommended cranberry tablets daily. [facility] Medical History (Updated 04/18/24 @ 16:28 by Nikunj Simon MD) Gastritis Social History (Updated 11/26/23 @ 02:07 by Parisa Vallejo DO) Patient Tobacco Use Status: Never used Tobacco Review of Systems Const All systems reviewed & are unremarkable except as noted in HPI and below Reports no additional complaints Eyes Reports no additional complaints ENT Reports no additional complaints Card Reports no additional complaints Resp Reports no additional complaints GI Reports no additional complaints Reports as per HPI Musc Reports no additional complaints Skin/Breast Reports system reviewed and no additional complaints, except as documented Neuro Reports no additional complaints Psych Reports no additional complaints Endo Reports no additional complaints Lloyd/Lymph Reports no additional complaints Aller/Immun Reports no additional complaints Physical Exam Const General: cooperative, healthy appearing and no acute distress Orientation/consciousness: patient oriented x3 HEENT Head: Yes normal to inspection, Yes normocephalic and Yes atraumatic Eyes Conjunctivae: conjunctivae normal Neck Neck: Yes normal visual inspection and Yes trachea midline Chest Chest palpation & inspection: normal inspection of the chest Resp Effort & Inspection: normal respiratory effort Cardio Rate: regular rate GI Inspection: Yes normal to inspection Palpation (GI): Soft to palpation Neuro General: patient oriented x3 Extrem General: No edema Psych Appearance: grossly normal Office Procedures Post Void Residual Post Residual Void Post Void Residual (PVR): 0 [id number] Void Residual by ultrasound Results AMB Urinalysis, Automated UA Leukoctes 70 Samuel/uL Last Edit by Johnna Mobley [facility] on 04/16/24 15:36 UA Nitrite Negative Last Edit by Johnna Mobley [facility] on 04/16/24 15:36 UA Urobilinogen 0.2 mg/dL Last Edit by Johnna Mobley [facility] on 04/16/24 15:36 UA Protein 15 mg/dL Last Edit by Johnna Mobley [facility] on 04/16/24 15:36 UA pH 5.5 Last Edit by Johnna Mobley [facility] on 04/16/24 15:36 UA Blood 80 Jas/uL Last Edit by Johnna Mobley [facility] on 04/16/24 15:36 UA Specific [place] 1.030 Last Edit by Johnna Mobley [facility] on 04/16/24 15:36 UA Ketone Negative Last Edit by Johnna Mobley [facility] on 04/16/24 15:36 UA Bilirubin 0 mg/dL Last Edit by Johnna Mobley [facility] on 04/16/24 15:36 UA Glucose 500 mg/dL Last Edit by Johnna Mobley [facility] on 04/16/24 15:36 Results Reviewed Results Reviewed: Laboratory Last Values Urine pH (Auto) 5.5 04/16/24 15:35 Specific [place] (Auto) 1.030 04/16/24 15:35 Urine Protein (Auto) 15 mg/dL 04/16/24 15:35 Glucose (UA)(Auto) 500 mg/dL 04/16/24 15:35 Urine Ketones (Auto) Negative 04/16/24 15:35 Urine Blood (Auto) 80 Jas/uL 04/16/24 15:35 Urine Nitrite (Auto) Negative 04/16/24 15:35 Urine Bilirubin (Auto) 0 mg/dL 04/16/24 15:35 Urine Urobilinogen (Auto) 0.2 mg/dL 04/16/24 15:35 Leukocyte Esterase (Auto) 70 Samuel/uL 04/16/24 15:35 Date of Service: 11/06/23 CT ABDOMEN AND PELVIS WITHOUT CONTRAST CLINICAL INFORMATION: Right upper quadrant abdominal pain COMPARISON: Abdominal ultrasound performed same day and CT scan from 01/23/2011 TECHNIQUE: Multidetector volumetric imaging was performed from the superior aspect of the liver through the pubic symphysis. Sagittal and coronal reformatted images were obtained on the technologist's workstation. This CT examination was performed using dose optimization techniques as appropriate, variously including the following: *Automated exposure control *Adjustment of mA and/or kV according to patient size (this includes techniques or standardized protocols for targeted exams where dose is matched to indication/reason for exam; i.e. extremities or head) *Use of iterative reconstruction technique DLP: 631 mGy-cm FINDINGS: LUNG BASES: The visualized lung bases are unremarkable. LIVER, GALLBLADDER, AND BILIARY TREE: The liver is normal in size, shape, and attenuation. No focal hepatic lesion or biliary ductal dilatation is present. Liver is decompressed. No calcified stones, wall thickening or inflammatory stranding PANCREAS: Unremarkable. SPLEEN: Calcified granuloma seen within the spleen. ADRENAL GLANDS: Unremarkable. KIDNEYS AND URETERS: The kidneys are normal in size, shape, and attenuation. No hydronephrosis, hydroureter, or calculi seen. No perinephric stranding. BLADDER: Unremarkable. GASTROINTESTINAL TRACT: The small and large bowel are unremarkable. The appendix is unremarkable. Nonspecific mesenteric stranding and small lymph nodes again seen which is unchanged compared to 2011. ABDOMINAL WALL: Small fat-containing umbilical hernia. LYMPH NODES: Normal. VASCULAR: Unremarkable. PELVIC VISCERA: The uterus and adnexa are unremarkable. OSSEOUS STRUCTURES: Posterior facet joint arthropathy is seen in the lumbar spine. IMPRESSION: No acute process Assessment & Plan Assessment & Plan (1) Hematuria: Code(s): R31.9 - Hematuria, unspecified Category: Medical (2) Urinary frequency: Code(s): R35.0 - Frequency of micturition Category: Medical (3) Urinary incontinence: Code(s): R32 - Unspecified urinary incontinence Category: Medical (4) History of recurrent UTIs: Code(s): Z87.440 - Personal history of urinary (tract) infections Category: Medical Plan Discussed further evaluation with cystoscopyand urine for cytology. Will trial anticholinergic tolterodine 4 mg daily. I have also recommended cranberry tablets daily. Orders: Orders Urine Cytology 04/16/24 N39.0 - Urinary tract infection, site not specified AMB Urinalysis Automated 04/16/24 Z13.9 - Encounter for screening, unspecified Medications: New cranberry extract administer with meals 425 mg PO BID 60 caps 2RF tolterodine ER 4 mg PO DAILY 30 caps 5RF Patient Instructions: The patient had an opportunity to ask questions regarding treatment plan. The patient expressed understanding and agreement with the above treatment plan. The patient is aware they should contact our office by phone for worsening of their current condition or the appearance of new symptoms. Compliance is encouraged with any medications and followup testing that is ordered. It is a privilege to be allowed the opportunity to participate in the urologic care of your patient. If you have any questions or concerns regarding treatment for the above conditions please do not hesitate to contact me. The office telephone contact is [phone]. This note is constructed in part using voice recognition software. While every effort has been made to ensure accuracy recycle driver errors may have been included. Yours sincerely, Nikunj Simon MD Coding Level of Care Code New Pt Level 4 (73155) Diagnoses Hematuria R31.9 Urinary frequency R35.0 Urinary incontinence R32 History of recurrent UTIs Z87.440 CPT Codes Post Residual Void - PVR CPT Code: 77526-Nzel Void Residual by ultrasound ([id number])
== END 2024-04-16 15:49 | disposition home or self-care (01) ==
PROVIDERS: PCP Family Medicine; Visit Provider Urology
DX: R31.9 Hematuria, unspecified (principal); R35.0 Frequency of micturition; R32 Unspecified urinary incontinence; Z87.440 Personal history of urinary (tract) infections
CPT/HCPCS: 99204

== ENCOUNTER 2024-04-25 13:39 | Emergency (ER) | payer OTHER, SELFPAY ==
--- NOTE | ~2024-04-25 | XR_ITS ---
EXAMINATION: XR CHEST CLINICAL INFORMATION: Chest pain. COMPARISON: November 06, 2023. TECHNIQUE: PA and lateral views of the chest were obtained. FINDINGS: No significant abnormality is noted involving the heart, lungs, mediastinum, bony thorax or soft tissues. XR/XR chest 2V IMPRESSION: Normal chest PA and lateral. Electronically signed by: Tay Huff MD 04/25/2024 02:54 PM EDT
--- NOTE | ~2024-04-25 | CT_ITS ---
EXAMINATION: CT HEAD WITHOUT CONTRAST CLINICAL INFORMATION: Left facial numbness. COMPARISON: No prior images currently available. TECHNIQUE: Contiguous axial imaging was performed from the skull base to vertex without intravenous administration of contrast. This CT examination was performed using dose optimization techniques as appropriate, variously including the following: *Automated exposure control *Adjustment of mA and/or kV according to patient size (this includes techniques or standardized protocols for targeted exams where dose is matched to indication/reason for exam; i.e. extremities or head) *Use of iterative reconstruction technique DLP: 743 mGy-cm FINDINGS: No intracranial hemorrhage, large infarction, or mass lesion is seen. Mild diffuse cortical atrophy and chronic bilateral periventricular white matter ischemic change. No extra-axial collection is appreciated. The ventricles are normal in size and configuration without evidence of hydrocephalus. The visualized paranasal sinuses and mastoid air cells are clear. CT/CT head/brain wo IV con IMPRESSION: No acute intracranial finding. Electronically signed by: Tay Huff MD 04/25/2024 06:09 PM EDT
--- NOTE | ~2024-04-25 | MR_ITS ---
EXAMINATION: MR BRAIN WITHOUT CONTRAST CLINICAL INFORMATION: Left facial numbness COMPARISON: None available. TECHNIQUE: MRI of the brain was obtained using routine sequences without contrast. FINDINGS: No acute intracranial hemorrhage or infarct. Scattered and confluent periventricular and deep white matter T2/FLAIR hyperintensities, nonspecific however commonly seen with small vessel ischemic disease. No midline shift or hydrocephalus. No acute extra-axial fluid collections. The osseous structures are unremarkable. Partially empty sella. The pineal gland and remaining midline structures are unremarkable. No orbital pathology. The paranasal sinuses and mastoid air cells are clear. MR/MR head/brain wo con IMPRESSION: No acute intracranial abnormalities. Electronically signed by: Jenn Winters MD 04/25/2024 06:45 PM EDT
--- NOTE | ~2024-04-25 | US_ITS ---
EXAMINATION: US TRIPLEX LOWER EXTREMITY, LEFT CLINICAL INFORMATION: Left lower extremity pain COMPARISON: DVT study left lower extremity 02/08/2023 TECHNIQUE: Color-flow triplex imaging with spectral analysis and compression Doppler were performed on the left lower extremity. FINDINGS: Respiratory variation, normal compression and augmented flow are noted throughout the left lower extremity. The visualized common femoral vein, superficial femoral vein, profunda femoral vein, popliteal vein and midcalf peroneal and posterior tibial venous segments show no evidence of deep venous thrombosis. There is no Holguin's cyst. US/US venous duplex LE LT IMPRESSION: No evidence of deep venous thrombosis involving the left lower extremity. Electronically signed by: Julian Doherty MD 04/25/2024 07:05 PM EDT
--- NOTE | 2024-04-25 13:40 | ECG_ITS ---
Test Reason : chest pain Blood Pressure : / mmHG Vent. Rate : 083 BPM Atrial Rate : 083 BPM P-R Int : 160 ms QRS Dur : 082 ms QT Int : 384 ms P-R-T Axes : 008 011 061 degrees QTc Int : 451 ms Normal sinus rhythm Normal ECG When compared with ECG of 06-NOV-2023 13:57, No significant change was found Referred By: Janee Walker Electronically Signed By:STEPHANIE RUSH
--- NOTE | 2024-04-25 13:50 | ED_ITS ---
HPI - Chest Pain General Chief Complaint: General Medical Stated Complaint: chest pain facial numbness Time Seen by Provider: 04/25/24 16:13 Source: patient Mode of arrival: ambulatory Limitations: no limitations History of Present Illness ED Provider: DR. Hart HPI narrative: This is a 83-wnrm-zop-female, hearing impaired, fibromyalgia, asthma, thyroid disease, HTN, and gastritis, presented for evaluation of symptoms, last night started to have left lower extremity pain that described as the whole lower extremity is painful throbbing pain, no swelling or edema, no recent travel, no injury, no redness or hotness in the lower extremity, then since this morning patient started to experience midsternal chest pain with left arm numbness that has been constant since it started 08:00, patient also started to have left facial numbness but no weakness, no vision issue, patient stated improvement of all of the above symptoms during the interview now. Related Data Previous Rx's ?Medication ?Instructions ?Recorded cyclobenzaprine 5 mg tablet 5 mg PO TID PRN muscle spasm #10 04/25/23 tabs lidocaine 5 % topical patch 1 patch topical DAILY #15 ea 04/25/23 levofloxacin 750 mg tablet 750 mg PO DAILY #4 tabs 06/24/23 omeprazole 40 mg capsule,delayed 40 mg PO DAILY #30 caps 11/26/23 release sucralfate 100 mg/mL oral 10 ml PO BID 10 days #200 mL 11/26/23 suspension (Carafate) cranberry extract 425 mg capsule 425 mg PO BID #60 caps 04/16/24 tolterodine 4 mg capsule,extended 4 mg PO DAILY #30 caps 04/16/24 release 24 hr Allergies Allergy/AdvReac Type Severity Reaction Status Date / Time penicillin V Allergy Unknown Anaphylaxis Verified 04/25/24 13:56 Penicillins Allergy Unknown Rash Verified 04/25/24 13:56 Sulfa (Sulfonamide Allergy Unknown Anaphylaxis Verified 04/25/24 13:56 Antibiotics) sulfamethoxazole Allergy Unknown rash Verified 04/25/24 13:56 trimethoprim Allergy Unknown rash Verified 04/25/24 13:56 Review of Systems 2 Review of Systems: All other systems are reviewed and are negative Constitutional: Reports as per HPI and Reports no additional constitutional complaints Eyes: Reports as per HPI and Reports no additional eye complaints Reports system reviewed and no additional complaints, except as documented Cardiovascular: Reports as per HPI and Reports no additional cardiovascular complaints Respiratory: Reports as per HPI and Reports no additional respiratory complaints Gastrointestinal: Reports as per HPI and Reports no additional gastrointestinal complaints Genitourinary: Reports no additional female genitourinary complaints Musculoskeletal: Reports no additional musculoskeletal complaints Skin/Breast: Reports system reviewed and no additional complaints, except as docu Psychiatric: Reports no additional psychiatric complaints Endocrine: Reports no additional endocrine complaints Hematologic/Lymphatic: Reports no additional hematologic/lymphatic complaints Allergic/Immunologic: Reports no additional allergic/immunologic complaints Reports system reviewed and no additional complaints, except as documented and Reports Abnormal speech present [facility] Past Medical History Medical History Gastritis Social History Social History Patient Tobacco Use Status: Never used Tobacco Use of substances other than those prescribed or required for medical reasons: No Advance Directives: No Advance Directives Information Provided: No Physical Exam 2 Vital Signs: Vital Signs: Last Vital Signs Temp 97.9 F 04/25/24 18:54 Pulse 65 04/25/24 18:54 Resp 18 04/25/24 18:54 BP 164/72 H 04/25/24 18:54 Pulse Ox 95 04/25/24 18:54 O2 Del Method Room Air 04/25/24 18:54 BMI result Body Mass Index 40.2 Vital signs have been reviewed and appear to be correct. Blood pressure elevated. Heart rate normal. Respiratory rate normal. Temperature normal. Oxygen saturation normal. Appearance: Alert. Oriented X3. No acute distress. Head: Normal external exam. Normocephalic. Atraumatic. No Allison signs noted. No raccoon eyes noted Eyes: PERRLA. EOMI. Conjunctiva and sclera normal. Eyelids normal. ENT: TM's Normal. Pharynx normal. Uvula midline. Moist mucous membranes. No trismus noted. No drooling noted. No muffled voice noted. Neck: Normal inspection. Neck supple. FROM. No adenopathy. Thyroid Normal. No meningeal signs. No neck mass noted. CVS: Normal heart rate and rhythm. Heart sound normal. No murmurs noted. Pulses normal throughout. Respiratory: No respiratory distress. Painless inspiration. Breath sounds normal. No wheezes/rales/rhonchi noted. Chest nontender. No accessory muscle usage noted or decreased air movement noted. Abdomen: Soft and nontender. Bowel sounds normal in all 4 quadrants. No distention noted. No organomegaly noted. No visible injury noted. Back: No CVA tenderness. Full range of motion noted. Skin: Skin warm and dry. Normal skin color. Normal skin turgor. No rashes/lesions/lacerations noted. Extremities: No lower extremity edema. Extremities exhibit normal range of motion. Extremities nontender. Neuro: Oriented X 3. Cranial nerve exam: II-XII are grossly intact No motor deficit. No sensory deficit. Reflexes normal. NIH Stroke Scale Time: 16:25 Level of Consciousness: Alert Level of Consciousness Questions: Answers both questions correctly Level of Consciousness Commands: Performs both tasks correctly Best Gaze: Normal Visual: No visual loss Facial Palsy: Normal Motor Arm (Right): No drift Motor Arm (Left): No drift Motor Leg (Right): No drift Motor Leg (Left): No drift Limb Ataxia: Absent Sensory: Normal Best Language: No aphasia Dysarthia: Normal Extinction and Inattention: No abnormality Score: 0 Course Course Course Narrative: This is an RME: Additional HPI, ROS, PE not included below will be deferred to primary provider. RME assessment and note performed by: Janee Walker PA-C This is a 8-cbr[age]-female, hearing impaired, fibromyalgia, asthma, thyroid disease, HTN, and gastritis, who presents to the ER with a complaint of leg leg pain since last night, chest pain Pt states that the entire left leg is painful without any injury. Reporting midsternal chest pain since this morning. Reporting some shortness of breath. Reporting left sided facial numbness, left arm numbness. Reporting no vision changes. Plan: Labs, EKG, cxr Reevaluation(s) Reevaluation #1: chest pain, left facial numbness, left lower extremity pain. 1. Labs/EKG/ presentation is not suggesting ACS diagnosis, or pulmonary embolism. 2. Left facial numbness concern of stroke patient has a normal neuro exam with NIH score of 0, head /MRI of the head are unremarkableFor acute stroke. 3. Lower extremity pain thought to be part of fibromyalgia there is no evidence of DVT. Time: 19:53 Medical Decision Making Differential Diagnosis Differential Diagnoses: The differential diagnosis associated with the presentation includes ( ACS, pneumonia, pleural Vera effusion, pulmonary embolism, pericarditis, hemorrhagic stroke, ischemic stroke, DVT, fibromyalgia, electrolyte derangement, severe anemia.) Admission/Observation Consideration of admission/observation: Escalation of care including admission/observation considered Lab Data MDM Lab Attestation statement: I reviewed the patient's lab results. 04/25/24 14:54 04/25/24 14:54 Labs: Lab Results 04/25/24 04/25/24 Range/Units 14:54 18:13 WBC 8.7 (4.8-10.8) X10*3/uL RBC 4.50 (4.20-5.50) X10*6/uL Hgb 13.0 (12.0-16.0) g/dl Hct 38.3 (37.0-47.0) % MCV 85.1 (80.0-98.0) fL MCH 28.9 (27.0-33.0) pg MCHC 33.9 (31.0-35.0) g/dl RDW 13.7 (11.0-16.0) % Plt Count 238 (160-400) X10*3/uL MPV 9.7 (9.4-12.3) fL Immature Gran % (Auto) 0.3 (0.0-0.4) % Neut % (Auto) 61.6 (45-73) % Lymph % (Auto) 25.5 (20-40) % Keith % (Auto) 7.6 (2-11) % Eos % (Auto) 4.7 H (0-4) % Baso % (Auto) 0.3 (0-2) % Lymph # (Auto) 2.2 (1.2-4.9) X10*3/uL Keith # (Auto) 0.7 (0.1-1.2) X10*3/uL Eos # (Auto) 0.4 (0.0-0.4) X10*3/uL Baso # (Auto) 0.0 (0.0-0.2) X10*3/uL Abs Immat Gran (auto) 0.03 (0.00-0.03) X10*3/uL Absolute Neuts (auto) 5.4 (2.0-8.3) x10*3/uL Absolute Nucleated RBC 0.000 (0.0-0.012) X10*3/uL Nucleated RBC % (auto) 0.0 (0.0-0.2) /100WBC PT 11.5 (10.9-12.4) SEC INR 1.0 (0.9-1.1) D-Dimer High Sensitivty < 150 NG/ML Sodium 143 (135-145) mmol/L Potassium 3.7 (3.3-5.1) mmol/L Chloride 108 (96-108) mmol/L Carbon Dioxide 26 (22-29) mmol/L Anion Gap 13 (12-20) BUN 16 (9-16) mg/dL Creatinine 0.84 (0.5-1.4) mg/dL Estim Creat Clear Calc 62.6 Estimated GFR > 60 Random Glucose 247 H (60-115) mg/dL Calcium 9.2 (8.4-10.2) mg/dL Magnesium 1.6 (1.6-2.6) mg/dL Total Bilirubin 0.2 (0.0-1.0) mg/dL Direct Bilirubin < 0.2 (0.0-0.5) mg/dL AST 15 (5-31) U/L ALT 16 (0-31) U/L Alkaline Phosphatase 90 (39-117) U/L Troponin I High Sens < 2.7 < 2.7 (<3.5-17.0) ng/L Total Protein 7.3 (6.5-8.0) g/dL Albumin 3.6 (3.5-5.0) g/dL Lipase 17 (8-78) U/L Influenza Type A (PCR) NEGATIVE (Negative) Influenza Type B (PCR) NEGATIVE (Negative) RSV RNA Qual (PCR) NEGATIVE (Negative) SARS-CoV-2 RNA (RT-PCR) NEGATIVE (Negative) Independent Interpretation I performed an independent interpretation of an: EKG ( Normal sinus rhythm at 83 beats per minutes, normal intervals, no ST-T changes, no significant change from previous EKG.), Plain X-Ray ( Chest: No acute abnormality.), Ultrasound ( Left lower extremity ultrasound: No DVT.) and CT Scan ( Head CT: No acute intracranial pathology.) Radiology Impression Discussion of test interpretation with radiology: I have reviewed the radiologist's reading. Discharge Plan Discharge Clinical Impression: Chest pain, Fibromyalgia, Facial paresthesia, Leg pain Instructions: Chest Pain (ED) Prescriptions: No Action levofloxacin 750 mg tablet 750 mg PO DAILY Qty: 4 0RF cyclobenzaprine 5 mg tablet 5 mg PO TID PRN (Reason: muscle spasm) Qty: 10 0RF lidocaine 5 % adhesive patch,medicated 1 patch topical DAILY Qty: 15 0RF Rx Instructions: leave on most painful area for up to 12 hrs omeprazole 40 mg capsule,delayed release(DR/EC) 40 mg PO DAILY Qty: 30 1RF sucralfate [Carafate] 100 mg/mL suspension 10 ml PO BID 10 Days Qty: 200 0RF cranberry extract 425 mg capsule 425 mg PO BID Qty: 60 2RF Rx Instructions: administer with meals tolterodine 4 mg capsule,extended release 24hr 4 mg PO DAILY Qty: 30 5RF Referrals: Vivien Ohara MD [Primary Care Provider] - Print Language: Kyrgyz
[2024-04-25 13:51] VITALS: BP 158/76; PULSE 81; RESP 16; TEMP 36.6; O2SAT 98; BMI 40.2
[2024-04-25 15:04] LABS: MANUAL DIFF FLAG NO
[2024-04-25 15:10] LABS: Basophils Percent Auto 0.3 % (0-2); Eosinophils Absolute Auto 0.4 X10*3/uL (0.0-0.4); Eosinophils Percent Auto 4.7 % (0-4); Hematocrit 38.3 % (37.0-47.0); Imm Gran Abs Auto 0.03 X10*3/uL (0.00-0.03); Imm Gran Pct Auto 0.3 % (0.0-0.4); Lymphocytes Absolute Auto 2.2 X10*3/uL (1.2-4.9); Lymphocytes Percent Auto 25.5 % (20-40); Mean Corpuscular HGB Conc 33.9 g/dl (31.0-35.0); Mean Corpuscular Hemoglobin 28.9 pg (27.0-33.0); Mean Corpuscular Volume 85.1 fL (80.0-98.0); Mean Platelet Volume 9.7 fL (9.4-12.3); Monocytes Absolute Auto 0.7 X10*3/uL (0.1-1.2); Monocytes Percent Auto 7.6 % (2-11); Neutrophils Absolute Auto 5.4 x10*3/uL (2.0-8.3); Neutrophils Percent Auto 61.6 % (45-73); Platelet Count 238 X10*3/uL (160-400); Red Cell Distribution Width 13.7 % (11.0-16.0); White Blood Count 8.7 X10*3/uL (4.8-10.8)
[2024-04-25 15:15] LABS: Prothrombin Time 11.5 SEC (10.9-12.4)
[2024-04-25 15:22] LABS: Alanine Aminotransferase 16 U/L (0-31); Albumin Level 3.6 g/dL (3.5-5.0); Alkaline Phosphatase 90 U/L (39-117); Anion Gap 13 (12-20); Aspartate Amino Transferase 15 U/L (5-31); Bilirubin Direct < 0.2 mg/dL (0.0-0.5); Bilirubin Total 0.2 mg/dL (0.0-1.0); Blood Urea Nitrogen 16 mg/dL (9-16); Calcium 9.2 mg/dL (8.4-10.2); Carbon Dioxide 26 mmol/L (22-29); Chloride 108 mmol/L (96-108); Creatinine Clr Calc Pharmacy 62.6; Estimated Glomerular Filt Rate > 60; Glucose Random 247 mg/dL (60-115); Lipase 17 U/L (8-78); Magnesium 1.6 mg/dL (1.6-2.6); Potassium 3.7 mmol/L (3.3-5.1); Sodium 143 mmol/L (135-145); Total Protein 7.3 g/dL (6.5-8.0)
[2024-04-25 15:34] LABS: Troponin-I High Sensitivity < 2.7 ng/L (<3.5-17.0)
[2024-04-25 15:44] LABS: Influenza A PCR NEGATIVE (Negative); Influenza B PCR NEGATIVE (Negative); Resp Syncy Virus RNA Qual PCR NEGATIVE (Negative); SARS COV2 PCR INHOUSE NEGATIVE (Negative)
[2024-04-25 15:55] VITALS: BP 167/75; PULSE 69; RESP 18; TEMP 36.9; O2SAT 96
--- NOTE | 2024-04-25 15:57 | PC.NURSE ---
pt describes being woken this am by Chest pain. denies diaphresis, SOB. also has left sided facial numbness. both sx are improving w/o intervention. no unilat neuro deficits in stroke screen.
[2024-04-25 16:55] LABS: D Dimer High Sensitivity < 150 NG/ML
[2024-04-25 18:47] LABS: Troponin-I High Sensitivity < 2.7 ng/L (<3.5-17.0)
[2024-04-25 18:54] VITALS: BP 164/72; PULSE 65; RESP 18; TEMP 36.6; O2SAT 95
[2024-04-25 20:20] VITALS: BP 155/84; PULSE 72; RESP 16; TEMP 36.8; O2SAT 96
== END 2024-04-25 20:35 | disposition home or self-care (01) ==
PROVIDERS: Physician Assistant Medical; Emergency Provider Emergency Medicine; PCP Family Medicine
DX: M79.605 Pain in left leg (principal); R20.2 Paresthesia of skin; R07.9 Chest pain, unspecified; I10 Essential (primary) hypertension; H91.90 Unspecified hearing loss, unspecified ear; M79.7 Fibromyalgia; Z03.818 Encounter for observation for suspected exposure to other biological agents ruled out
CPT/HCPCS: 0241U; 36415; 70450; 70551; 71046; 80048; 80076; 83690; 83735; 84484; 85025; 85379; 85610; 93005; 93971; 99284

== ENCOUNTER 2024-05-13 10:58 | Outpatient (REF) | payer OTHER, SELFPAY ==
[2024-05-13 12:31] LABS: Alanine Aminotransferase 19 U/L (0-31); Albumin Level 3.8 g/dL (3.5-5.0); Alkaline Phosphatase 92 U/L (39-117); Anion Gap 12 (12-20); Aspartate Amino Transferase 14 U/L (5-31); Bilirubin Total 0.4 mg/dL (0.0-1.0); Blood Urea Nitrogen 16 mg/dL (9-16); Calcium 9.6 mg/dL (8.4-10.2); Carbon Dioxide 28 mmol/L (22-29); Chloride 107 mmol/L (96-108); Cholesterol 180 mg/dL (<200); Estimated Glomerular Filt Rate > 60; Glucose Random 184 mg/dL (60-115); HDL Cholesterol 45 mg/dL (>40); LDL Cholesterol Calculated 95 mg/dL (<100); Potassium 3.5 mmol/L (3.3-5.1); Sodium 143 mmol/L (135-145); Total Protein 7.6 g/dL (6.5-8.0); Triglycerides 200 mg/dL (<150)
[2024-05-13 12:47] LABS: TSH reflex Free T4 3.15 uIU/mL (0.32-4.0); Vitamin D 25-OH Total 25.3 ng/mL (>30)
[2024-05-13 12:54] LABS: Folate 13.8 ng/mL (> or = 4.0); Vitamin B12 385 pg/mL (200-900)
[2024-05-13 15:10] LABS: Reflex LDLD? No
[2024-05-14 21:58] LABS: Thyroid Peroxidase Antibodies 17 IU/mL (<9)
== END 2024-05-13 10:59 | disposition home or self-care (01) ==
LOC: HO.HHCL 10:58
PROVIDERS: Visit Provider Family Medicine
DX: E03.9 Hypothyroidism, unspecified (principal); E11.9 Type 2 diabetes mellitus without complications; I10 Essential (primary) hypertension; E55.9 Vitamin D deficiency, unspecified
CPT/HCPCS: 36415; 80053; 80061; 82306; 82607; 82746; 84443; 86376

== ENCOUNTER 2024-05-27 13:29 | Outpatient (AMB) | payer OTHER, SELFPAY ==
--- NOTE | 2024-05-27 12:42 | MHC.OFFVIS ---
Intake Visit Reasons: cysto Intake Note: Patient is present for Cystoscopy Urology Medication:TOLTERODINE Antibiotic Allergy:PENICILLINS,SULFA Blood Thinner:NONE Lot:[id number] Exp: Ios Architect Required: No Allergies penicillin V Allergy (Unknown, Verified 05/27/24 13:32) Anaphylaxis Penicillins Allergy (Unknown, Verified 05/27/24 13:32) Rash Sulfa (Sulfonamide Antibiotics) Allergy (Unknown, Verified 05/27/24 13:32) Anaphylaxis sulfamethoxazole Allergy (Unknown, Verified 05/27/24 13:32) rash trimethoprim Allergy (Unknown, Verified 05/27/24 13:32) rash HPI Comments Details: 05/27/24--FU microscopic hematuria. Urine cytology sent on 04/16/24-- No malignant cells. Here for offie cystoscopy. Cystoscopy findings: Mild inflammatory changes consistent with cystitis, no suspicious bladder lesions visualized. Review of chart: 04/16/24--Lia is here with complaints of urinary incontinence and urinary frequency. She states that she has had UTIs in the past. Urinalysis-microscopic hematuria. I reviewed CT abdomen and pelvis without IV contrast 11/06/23, kidneys within normal limits negative for kidney stones or masses. I have discussed further evaluation with cystoscopy, and urine for cytology. Will trial anticholinergic tolterodine 4 mg daily. I have also recommended cranberry tablets daily. PFSH Medical History Gastritis Social History Patient Tobacco Use Status: Never used Tobacco Review of Systems Const All systems reviewed & are unremarkable except as noted in HPI and below Reports no additional complaints Eyes Reports no additional complaints ENT Reports no additional complaints Card Reports no additional complaints Resp Reports no additional complaints GI Reports no additional complaints Reports as per HPI Musc Reports no additional complaints Skin/Breast Reports system reviewed and no additional complaints, except as documented Neuro Reports no additional complaints Psych Reports no additional complaints Endo Reports no additional complaints Lloyd/Lymph Reports no additional complaints Aller/Immun Reports no additional complaints Office Procedures Cystoscopy Consent Discussed risk and benefit or proposed procedure with the patient. Information consent for procedure given to the patient. Discussed technical aspects, risks, benefits and alternatives in full. Addressed all of the patient's questions and concerns regarding the procedure. The patient demonstrated knowledge and understanding. They wish to proceed with this procedure. Preparation The patient was prepped in the usual manner. A trimmer operator was present and in the room. Genitalia was prepped with betadine solution in a sterile manner. Lidocaine Jelly 2% was placed into the urethra and 16Fr flexible Olympus cystoscope was inserted into the meatus after adequate lubrication. Procedure Time out per protocol performed. Bladder Inspection Bladder Inspection: The bladder was inspected in its entirety with utilization retroflexion displaying: Tumor(s): no suspicious bladder lesions visualized Trabeculation: Boyd Mucosal Erthema: Mild inflammatory changes Orifices: normal shape and position Urethra: normal Cystoscopy findings: no suspicious bladder lesions visualized [id number] DISPOSABLE SCOPE URO-G FLEXIBLE SCOPE Procedure code (CPT) selection complete Office Meds lidocaine HCl 2 % mucosal jelly in applicator Performing Provider: Nikunj Simon MD Performing Location: [facility] Administered by: Wilbert Enamorado LPN on 05/27/24 13:59 Dose Route Admin Location Dispensed Lot Number Expiration Date ND Terminal Clerk 10 mL intra-urethral 10 mL nitrofurantoin monohydrate/macrocrystals 100 mg capsule Performing Provider: Nikunj Simon MD Performing Location: [facility] Administered by: Wilbert Enamorado LPN on 05/27/24 13:59 Dose Route Admin Location Dispensed Lot Number Expiration Date ND Terminal Clerk 100 mg PO 1 cap naproxen 500 mg tablet Performing Provider: Nikunj Simon MD Performing Location: [facility] Administered by: Wilbert Enamorado LPN on 05/27/24 13:59 Dose Route Admin Location Dispensed Lot Number Expiration Date ND Terminal Clerk 500 mg PO 1 tab Results AMB Urinalysis, Automated UA Leukoctes 125 Samuel/uL Last Edit by CHRISTIANO Hdz on 05/27/24 13:58 UA Nitrite Negative Last Edit by CHRISTIANO Hdz on 05/27/24 13:58 UA Urobilinogen 0.2 mg/dL Last Edit by CHRISTIANO Hdz on 05/27/24 13:58 UA Protein 15 mg/dL Last Edit by CHRISTIANO Hdz on 05/27/24 13:58 UA pH 6.0 Last Edit by CHRISTIANO Hdz on 05/27/24 13:58 UA Blood 80 Jas/uL Last Edit by CHRISTIANO Hdz on 05/27/24 13:58 UA Specific [place] 1.025 Last Edit by Johnna Mobley CCM on 05/27/24 13:58 UA Ketone Negative Last Edit by CHRISTIANO Hdz on 05/27/24 13:58 UA Bilirubin 0 mg/dL Last Edit by CHRISTIANO Hdz on 05/27/24 13:58 UA Glucose 0 mg/dL Last Edit by CHRISTIANO Hdz on 05/27/24 13:58 Results Reviewed Results Reviewed: Laboratory Last Values Urine pH (Auto) 6.0 05/27/24 13:57 Specific [place] (Auto) 1.025 05/27/24 13:57 Urine Protein (Auto) 15 mg/dL 05/27/24 13:57 Glucose (UA)(Auto) 0 mg/dL 05/27/24 13:57 Urine Ketones (Auto) Negative 05/27/24 13:57 Urine Blood (Auto) 80 Jas/uL 05/27/24 13:57 Urine Nitrite (Auto) Negative 05/27/24 13:57 Urine Bilirubin (Auto) 0 mg/dL 05/27/24 13:57 Urine Urobilinogen (Auto) 0.2 mg/dL 05/27/24 13:57 Leukocyte Esterase (Auto) 125 Samuel/uL 05/27/24 13:57 Collected: 04/16/24 [facility] Received: 04/17/24 Diagnosis Urine: Negative for high-grade urothelial carcinoma. See comment. COMMENT: Cellular specimen consisting of abundant acute inflammatory cells, single urothelial cells with degenerative changes, squamous cells and few red blood cells. Clinical History Urinary tract infection, site not specified Material Received Urine Gross Description Received is 30 cc of cloudy yellow fluid from which a ThinPrep slide is prepared. Date of Service: 11/06/23 CT ABDOMEN AND PELVIS WITHOUT CONTRAST CLINICAL INFORMATION: Right upper quadrant abdominal pain COMPARISON: Abdominal ultrasound performed same day and CT scan from 01/23/2011 TECHNIQUE: Multidetector volumetric imaging was performed from the superior aspect of the liver through the pubic symphysis. Sagittal and coronal reformatted images were obtained on the technologist's workstation. This CT examination was performed using dose optimization techniques as appropriate, variously including the following: *Automated exposure control *Adjustment of mA and/or kV according to patient size (this includes techniques or standardized protocols for targeted exams where dose is matched to indication/reason for exam; i.e. extremities or head) *Use of iterative reconstruction technique DLP: 631 mGy-cm FINDINGS: LUNG BASES: The visualized lung bases are unremarkable. LIVER, GALLBLADDER, AND BILIARY TREE: The liver is normal in size, shape, and attenuation. No focal hepatic lesion or biliary ductal dilatation is present. Liver is decompressed. No calcified stones, wall thickening or inflammatory stranding PANCREAS: Unremarkable. SPLEEN: Calcified granuloma seen within the spleen. ADRENAL GLANDS: Unremarkable. KIDNEYS AND URETERS: The kidneys are normal in size, shape, and attenuation. No hydronephrosis, hydroureter, or calculi seen. No perinephric stranding. BLADDER: Unremarkable. GASTROINTESTINAL TRACT: The small and large bowel are unremarkable. The appendix is unremarkable. Nonspecific mesenteric stranding and small lymph nodes again seen which is unchanged compared to 2011. ABDOMINAL WALL: Small fat-containing umbilical hernia. LYMPH NODES: Normal. VASCULAR: Unremarkable. PELVIC VISCERA: The uterus and adnexa are unremarkable. OSSEOUS STRUCTURES: Posterior facet joint arthropathy is seen in the lumbar spine. IMPRESSION: No acute process Assessment & Plan Assessment & Plan (1) Hematuria: Code(s): R31.9 - Hematuria, unspecified Category: Medical (2) Urinary frequency: Code(s): R35.0 - Frequency of micturition Category: Medical (3) Urinary incontinence: Code(s): R32 - Unspecified urinary incontinence Category: Medical (4) History of recurrent UTIs: Code(s): Z87.440 - Personal history of urinary (tract) infections Category: Medical Plan FU in 6 months Orders: Orders AMB Urinalysis Automated Today Z13.9 - Encounter for screening, unspecified AMB Cystoscopy Today R31.9 - Hematuria, unspecified, R32 - Unspecified urinary incontinence, R35.0 - Frequency of micturition, Z87.440 - Personal history of urinary (tract) infections Patient Instructions: The patient had an opportunity to ask questions regarding treatment plan. The patient expressed understanding and agreement with the above treatment plan. The patient is aware they should contact our office by phone for worsening of their current condition or the appearance of new symptoms. Compliance is encouraged with any medications and followup testing that is ordered. It is a privilege to be allowed the opportunity to participate in the urologic care of your patient. If you have any questions or concerns regarding treatment for the above conditions please do not hesitate to contact me. The office telephone contact is [phone]. This note is constructed in part using voice recognition software. While every effort has been made to ensure accuracy director of instructional technology errors may have been included. Yours sincerely, Nikunj Simon MD Coding Level of Care Code Procedure Only Diagnoses Hematuria R31.9 Urinary frequency R35.0 Urinary incontinence R32 History of recurrent UTIs Z87.440 CPT Codes Cystoscopy - CPT: [id number] ([id number])
== END 2024-05-27 14:28 | disposition home or self-care (01) ==
PROVIDERS: PCP Family Medicine; Visit Provider Urology
DX: R31.9 Hematuria, unspecified (principal); R35.0 Frequency of micturition; Z87.440 Personal history of urinary (tract) infections; Z13.9 Encounter for screening, unspecified
CPT/HCPCS: 52000

== ENCOUNTER → 2024-05-27 13:29 | Outpatient (BNVA) | payer OTHER, SELFPAY | PROVIDERS: PCP Family Medicine; Visit Provider Urology | DX: R31.9 Hematuria, unspecified (principal); R35.0 Frequency of micturition; R32 Unspecified urinary incontinence; Z87.440 Personal history of urinary (tract) infections | CPT/HCPCS: 52000; 81003 ==

== ENCOUNTER 2024-09-01 | Outpatient (REF) | payer OTHER, SELFPAY ==
--- OUTSIDE RECORDS SUMMARY | 2024-09-02 13:33 | XMS_ITS | Encounter Summary ---
Author Organization [employer] Address [address] [facility] 7 [place] [address] Care Team Providers Care Pre Press Manager Name Role Phone Vivien Ohara MD Primary Care Provider [phone] Reason for Visit * Reason Comments Med Refill Encounter Details Date Type Department Care Team ([facility] st Contact Info) Description 05/14/2024 Refill [facility] [address] [place] [address] Vivien Ohara MD [address] [place] [address] Mild intermittent asthma with acute exacerbation Social History Tobacco Use Types Packs/Day Years Used Date Smoking Tobacco: Never Passive Smoke Exposure: Never Smokeless Tobacco: Never Alcohol Use Standard Drinks/Week Comments Never 0 (1 standard drink = 0.6 oz pur e alcohol) Alcohol Answer Date Recorded Frequency of Alcohol Consumption Not on file 01/16/2024 Average Number of Drinks Not on file 024 Frequency of Binge Drinking Not on file 12/28 Score 0 01/16/2024 Depression Answer Date Recorded Patient Health Questionnaire-9 Score 0 03/14/2023 Housing Stability Answer Date Recorded What is your housing situation today? I have fallon bello 09/23/[address] you li ve. Do you have problems with any of the following? Pests such as bugs, ants, or mice 09/23/2023 Food Insecurity Answer Date Recorded Within the past 12 months, y ou worried that your food would run out before you got money to buy more: Never True 05/13/2023 Within the past 12 months,th e food you bought just didn't last and you didn't have enough money to get more: Never True Transportation Answer Date Recorded In the past 12 months, has l ack of transportation kept you from medical appts, meetings, work or from getting things needed for daily living? No 05/13/2023 Utilities Answer Date Recorded In the past 12 months, has t he electric, gas, oil or water company threatened to shut off services in your home? No 05/13/2023 Depression Answer Date Recorded Patient Health Questionnaire-2 Score 0 03/14/2023 Internet Access Answer Date Recorded Internet Access Q1 Yes 04/30/2024 Internet Access Q2 Not on file 04/30/2024 Comments Unknown Sex and Gender Information Value Date Recorded Sex Assigned at Female 05/28/2022 10:15 AM EDT Legal Sex Female 10:15 AM EDT Gender Identity Female 05/28/2022 10:15 AM EDT Sexual Orientation Choose not to disclose 2022 8:41 AM EDT Sexual Orientation Straight 05/30/2023 8: 41 AM EDT documented as of this encounter Plan of Treatment Not on file documented as of this encounter Visit Diagnoses Diagnosis Mild intermittent asthma with acute exacerbation documented in this encounter Additional Health Concerns Assessment Noted Time PHQ-9 Depression Total Score: 0 03/14/20 23 1:40 PM EDT documented as of this encounter Care Teams Pre Press Manager Relationship Specialty Start Date End Date Vivien Ohara MD [address] [place] [address] PCP - General Family Medicine 08/19/23 documented as of this encounter
--- OUTSIDE RECORDS SUMMARY | 2024-09-02 13:33 | XMS_ITS | Encounter Summary ---
Author Organization [employer] Address [address] [facility] 7 [place] [address] Care Team Providers Care Auto Striper Name Role Phone Kandi Vanessa Ciera NORTONP Primary Care Provider [phone] Lakeisha Yadav NP Primary Care Provider [phone] Vivien Ohara MD Primary Care Provider [phone] Reason for Visit * Reason Comments Med Refill Encounter Details Date Type Department Care Team (Late st Contact Info) Description 08/14/2022 Refill [facility] [address] [place], [place] [id number] Hailey Gomez MD [address] [place] [address] Cough in adult Social History Tobacco Use Types Packs/Day Years Used Date Smoking Tobacco: Never Passive Smoke Exposure: Never Smokeless Tobacco: Never Comments Unknown Sex and Gender Information Value Date Recorded Sex Assigned at Female 05/28/2022 10:15 AM EDT Legal Sex Female 10:15 AM EDT Gender Identity Female 05/28/2022 10:15 AM EDT Sexual Orientation Choose not to disclose 2022 8:41 AM EDT Sexual Orientation Straight 05/30/2023 8: 41 AM EDT COVID-19 Exposure Response Date Recorded In the last 10 days, have yo u been in contact with someone who was confirmed or suspected to have Coronavirus/COVID-19? No / Unsure 07/26/2022 2:29 PM EST documented as of this encounter Plan of Treatment Not on file documented as of this encounter Visit Diagnoses Diagnosis Cough in adult documented in this encounter Care Teams Auto Striper Relationship Specialty Start Date End Date Kandi Vanessa FNP PCP - General Family Medicine 03/07/22 05/02/23 Lakeisha Yadav NP [address] [place] [address] PCP - General Family Medicine 05/03/23 08/18/23 Vivien Ohara MD [address] [place] [address] PCP - General Family Medicine 08/19/23 documented as of this encounter
--- OUTSIDE RECORDS SUMMARY | 2024-09-02 13:33 | XMS_ITS | Encounter Summary ---
Author Organization [employer] Address [address] [place] [address] [place] [address] Care Team Providers Care Inhalation Therapy Aides Teacher Name Role Phone Kandi Vanessa Primary Care Provider [phone] Lakeisha Yadav NP Primary Care Provider [phone] Vivien Ohara MD Primary Care Provider [phone] Reason for Visit * Reason Onset Date Comments Results 08/03/2022 Encounter Details Date Type Department Care Team (Late st Contact Info) Description 08/03/2022 Telephone [facility] [address] [place] [address] Kandi Vanessa FNP [address] [place] [address] Dept [place] [address] Results Social History Tobacco Use Types Packs/Day Years [...] PM EST documented as of this encounter Miscellaneous Notes * Telephone Encounter - Janina Tello RN - 08/06/2022 4:04 PM EST XR results printed and left on PCP desk for review. * Telephone Encounter - Ghada Carroll - 08/03/2022 11:41 AM EST Tc from patient requesting x-ray results. * Telephone Encounter - Ghada Carroll - 08/03/2022 11:41 AM EST Result Communication documented in this encounter Plan of Treatment Not on file documented as of this encounter Visit Diagnoses Not on filedocumented in this encounter Care Teams Inhalation Therapy Aides Teacher Relationship Specialty Start Date End Date Kandi Vanessa FNP PCP - General Family Medicine 03/07/22 05/02/23 Lakeisha Yadav NP [address] [place] [address] PCP - General Family Medicine 05/03/23 08/18/23 Vivien Ohara MD [address] [place] [address] PCP - General Family Medicine 08/19/23 documented as of this encounter
--- OUTSIDE RECORDS SUMMARY | 2024-09-02 13:33 | XMS_ITS | Encounter Summary ---
Author Organization [employer] Address [address] [facility] 7t [place] [address] Care Team Providers Care Train Caller Name Role Phone Lakeisha Yadav NP Primary Care Provider [phone] Vivien Ohara MD Primary Care Provider [phone] Reason for Visit * Reason Comments Med Refill Encounter Details Date Type Department Care Team ([facility] st Contact Info) Description 08/17/2023 Refill [facility] [address] [place] [address] Name, MD Dylon [address] [place] [address] Mild intermittent asthma with acute exacerbation Social History Tobacco Use Types Packs/Day Years Used Date Smoking Tobacco: Never Passive Smoke Exposure: Never Smokeless Tobacco: Never Alcohol Use Standard Drinks/Week Comments Never 0 (1 standard drink = 0.6 oz pur e alcohol) Depression Answer Date Recorded Patient Health Questionnaire-9 Score 0 03/14/2023 Housing Stability Answer Date Recorded What is your housing situation today? I have fallon bello 05/13/[address] you li ve. Do you have problems with any of the following? None of the above 05/13/2023 Food Insecurity Answer Date Recorded Within the [...] Recorded Patient Health Questionnaire-2 Score 0 03/14/2023 Comments Unknown Sex and Gender Information Value Date Recorded Sex Assigned at Female 05/28/2022 10:15 AM EDT Legal Sex Female 10:15 AM EDT Gender Identity Female 05/28/2022 10:15 AM EDT Sexual Orientation Choose not to disclose 2022 8:41 AM EDT Sexual Orientation Straight 05/30/2023 8: 41 AM EDT documented as of this encounter Miscellaneous Notes * Telephone Encounter - Keli Velasco MA - 08/19/2023 10:21 AM EST T/c to pt booked TP with PCP as requested pt agreed with date and time documented in this encounter Plan of Treatment Not on file documented as of this encounter Visit Diagnoses Diagnosis Mild intermittent asthma with acute exacerbation documented in this encounter Additional Health Concerns Assessment Noted Time PHQ-9 Depression Total Score: 0 03/14/20 23 1:40 PM EDT documented as of this encounter Care Teams Train Caller Relationship Specialty Start Date End Date Lakeisha Yadav NP [address] [place] [address] PCP - General Family Medicine 05/03/23 08/18/23 Vivien Ohara MD [address] [place] [address] PCP - General Family Medicine 08/19/23 documented as of this encounter
--- OUTSIDE RECORDS SUMMARY | 2024-09-02 13:33 | XMS_ITS | Encounter Summary ---
Author Organization [employer] Address [address] [facility] 7 [place] [address] Care Team Providers Care Health Underwriter Name Role Phone Vivien Ohara MD Primary Care Provider [phone] Reason for Visit * Reason Comments Med Refill Encounter Details Date Type Department Care Team ([facility] st Contact Info) Description 08/10/2024 Refill [facility] [address] [place], [place] [id number] Vivien Ohara MD [address] [place] [address] Social History Tobacco Use Types Packs/Day Years [...] Diagnoses Not on filedocumented in this encounter Additional Health Concerns Assessment Noted Time PHQ-9 Depression Total Score: 0 03/14/20 23 1:40 PM EDT documented as of this encounter Care Teams Health Underwriter Relationship Specialty Start Date End Date Vivien Ohara MD [address] [place] [address] PCP - General Family Medicine 08/19/23 documented as of this encounter
--- OUTSIDE RECORDS SUMMARY | 2024-09-02 13:33 | XMS_ITS | Encounter Summary ---
Author Organization [facility] Address [address] [facility] 7 [place] [address] Care Team Providers Care Loft Patternmaker Name Role Phone Vivien Ohara MD Primary Care Provider [phone] Reason for Visit * Reason Comments Cough Encounter Details Date Type Department Care Team ([facility] Contact Info) Description 09/01/2024 6:00 PM EST Office Visit [facility] [address] [place], [place] [phone] Yuval Henry MD [address] [place], [place] [phone] Subacute cough Social History Tobacco Use Types Packs/Day Years [...] AM EDT documented as of this encounter Last Filed Vital Signs Vital Sign Reading Time Taken Comments Blood Pressure 155/86 09/01/2024 5:56 PM EST Pulse 88 09/01/2024 5:56 PM EST Temperature 36.7 ??C (98 ??F) 09/01/2024 5:56 PM EST Respiratory Rate 18 09/01/2024 5:56 PM EST Oxygen Saturation 97% 09/01/2024 5:56 PM EST Inhaled Oxygen Concentration - - Weight 85.3 kg (188 lb) 09/01/2024 5:56 PM EST Height - - Body Mass Index 39.29 06/06/2023 3:14 PM EST documented in this encounter Progress Notes * Yuval Henry MD - 09/01/2024 6:00 PM EST Subjective History was provided by the patient. Lia Deleon is a 64 y.o. female who presents for evaluation of symptoms of a URI. Symptoms include cough, fever, shortness of breath, myalgia, runny nose, chills, congestion, sore throat, and diarrhea. Onset of symptoms was 3 weeks ago, unchanged since that time. Associated negative symptoms include nausea, vomiting, and rash. Evaluation to date: none. Treatment to date: none Grandson with similar symptoms (also for 3-week duration). Allergic to Bactrim and PCN. Objective Vitals: 09/01/24 1756 BP: (!) 155/86 BP Location: Right arm Patient Position: Sitting BP Cuff Size: Large adult Pulse: 88 Resp: 18 Temp: 98 ??F (36.7 ??C) TempSrc: Temporal SpO2: 97% Weight: 188 lb (85.3 kg) Physical Exam Vitals reviewed. Constitutional: Appearance: Normal appearance. She is normal weight. HENT: Head: Normocephalic and atraumatic. Right Ear: Tympanic membrane, ear canal and external ear normal. Left Ear: Tympanic membrane, ear canal and external ear normal. Nose: Nose normal. No congestion or rhinorrhea. Mouth/Throat: Mouth: Mucous membranes are dry. Pharynx: Oropharynx is clear. No oropharyngeal exudate or posterior oropharyngeal erythema. Eyes: Extraocular Movements: Extraocular movements intact. Conjunctiva/sclera: Conjunctivae normal. Pupils: Pupils are equal, round, and reactive to light. Cardiovascular: Rate and Rhythm: Normal rate and regular rhythm. Heart sounds: Normal heart sounds. Pulmonary: Effort: Pulmonary effort is normal. Breath sounds: Normal breath sounds. Musculoskeletal: General: Normal range of motion. Cervical back: Normal range of motion and neck supple. Lymphadenopathy: Cervical: No cervical adenopathy. Skin: General: Skin is warm and dry. Neurological: General: No focal deficit present. Mental Status: She is alert and oriented to person, place, and time. Mental status is at baseline. Psychiatric: Mood and Affect: Mood normal. Behavior: Behavior normal. Thought Content: Thought content normal. Judgment: Judgment normal. Office Visit on 09/01/2024 Component Date Value Ref Range Status Influenza A 09/01/2024 Negative Negative, Indeterminate Final Influenza B 09/01/2024 Negative Negative, Indeterminate Final Rapid COVID Ag 09/01/2024 Negative Final Lia was seen today for cough. Diagnoses and all orders for this visit: Subacute cough - Influenza A (ID NOW Rapid Molecular) - Influenza B (ID NOW Rapid Molecular) - POCT Rapid COVID Ag - XR Chest 2 Views; Future - Respiratory Viral Panel PCR; Future - azithromycin (Zithromax) 250 MG tablet; Take 2 tablets (500 mg) by mouth Once per day for 1 day, THEN 1 tablet (250 mg) Once per day for 4 days. Patient presents to [facility] due to 3-week duration of URI symptoms Normal pulmonary exam and no respiratory distress O2 sat reassuring Rapid COVID-19 & Influenza A/B negative Discussed supportive care with ample hydration, sleep position and rest Given prolonged symptoms, will check CXR, Respiratory Panel, and empirically start treatment with Azithromycin Potential adverse effects of the medication reviewed OTC supportive medications reviewed Droplet precautions discussed Advised to contact the clinic if no improvement of symptoms Indications for UC/ER use reviewed documented in this encounter Plan of Treatment Scheduled Orders Name Type Priority Associated Diagnoses Orde r Schedule XR Chest 2 Views Imaging Routine Subacute cough Expected: 09/01/2024, Expires: 09/01/2025 Respiratory Viral Panel PCR Lab Routine Subacute cough Expected: 09/01/2024 (Approximate), Expires: 09/01/2025 documented as of this encounter Procedures Procedure Name Priority Date/Time Associated Diagnosis Comments POCT INFLUENZA B (ID NOW RAPID MOLECULAR) Routine 09/01/2024 6:09 PM EST Subacute cough POCT INFLUENZA A (ID NOW RAPID MOLECULAR) Routine 09/01/2024 6:09 PM EST Subacute cough POCT RAPID COVID ANTIGEN Routine 09/01/2024 6:09 PM EST Subacute cough documented in this encounter Results * POCT Rapid COVID Ag (09/01/2024 6:09 PM EST) Rapid COVID Ag Negative Swab 09/01/2024 6:09 PM EST Yuval Henry MD POINT OF CARE TEST ENTER/EDIT OR DERABLES Final Result * Influenza B (ID NOW Rapid Molecular) (09/01/2024 6:09 PM EST) Influenza B Negative Negative, Indeterminate [facility] Swab 09/01/2024 6:09 PM EST us Yuval Henry MD POINT OF CARE TEST ENTER/EDIT OR DERABLES Final Result Performing Organization Address [facility] Co de Phone Number [facility] [address] [place] [address] [phone] * Influenza A (ID NOW Rapid Molecular) (09/01/2024 6:09 PM EST) Influenza A Negative Negative, Indeterminate [facility] Swab 09/01/2024 6:09 PM EST Yuval Henry MD POINT OF CARE TEST ENTER/EDIT OR DERABLES Final Result Performing Organization Address [facility] de Phone Number [facility] [address] [place] [phone] documented in this encounter Visit Diagnoses Diagnosis Subacute cough documented in this encounter Additional Health Concerns Assessment Noted Time PHQ-9 Depression Total Score: 0 03/14/20 23 1:40 PM EDT documented as of this encounter Care Teams Loft Patternmaker Relationship Specialty Start Date End Date Vivien Ohara MD [address] [place] [phone] PCP - General Family Medicine 08/19/23 documented as of this encounter
--- OUTSIDE RECORDS SUMMARY | 2024-09-02 13:33 | XMS_ITS | Encounter Summary ---
Author Organization [facility] Address [address] [place] [address] 7 [place] [address] Care Team Providers Care Medical Health Researcher Name Role Phone Vivien Ohara MD Primary Care Provider [phone] Reason for Referral * Consultation (Routine) - Pending Review Specialty Diagnoses / Procedures Referred By Contac t Referred To Contact Pharmacy Diagnoses Type 2 diabetes mellitus without complication, without long-term current use of insulin (CMS/HCC) Hypertension, unspecified type Vivien Ohara MD [address] [place] [address] Phone: tel: fax: Referral ID Status Reason Start Date Expiration Date Visits Requested Visits Authorized [id number] Pending Review Continuity of Care 04/29/2024 04/29/2025 6 6 Encounter Details Date Type Department Care Team (Late st Contact Info) Description 04/29/2024 Orders Only [facility] [address] [place] [address] Vivien Ohara MD [address] [place], [place] [phone] Type 2 diabetes mellitus without complication, without long-term current use of insulin (CMS/HCC) (Primary Dx); Hypertension, unspecified type Social History Tobacco Use Types Packs/Day Years [...] as of this encounter Plan of Treatment Scheduled Referrals Name Type Priority Associated Diagnoses Orde r Schedule Referral to Pharmacy [facility] Outpatient Referral Routine Type 2 diabetes mellitus without complication, without long-term current use of insulin (CMS/HCC) Hypertension, unspecified type Ordered: 04/29/2024 documented as of this encounter Visit Diagnoses Diagnosis Type 2 diabetes mellitus without complication, without long-term current use of insulin (CMS/HCC)- Primary Hypertension, unspecified type documented in this encounter Additional Health Concerns Assessment Noted Time PHQ-9 Depression Total Score: 0 03/14/20 23 1:40 PM EDT documented as of this encounter Care Teams Medical Health Researcher Relationship Specialty Start Date End Date Vivien Ohara MD [address] [place] [phone] PCP - General Family Medicine 08/19/23 documented as of this encounter
--- OUTSIDE RECORDS SUMMARY | 2024-09-02 13:33 | XMS_ITS | Encounter Summary ---
Author Organization [facility] Address [address] [facility] [address] [place] [address] Care Team Providers Care Carpenter Maintenance Name Role Phone Vivien Ohara MD Primary Care Provider [phone] Reason for Visit * Reason Comments Med Refill Encounter Details Date Type Department Care Team ([facility] st Contact Info) Description 11/06/2023 Refill [facility] [address] [place] [address] Amanda Moreno MD [address] [place] [address] Social History Tobacco Use Types Packs/Day Years [...] documented as of this encounter Care Teams Carpenter Maintenance Relationship Specialty Start Date End Date Vivien Ohara MD [address] [place] [phone] PCP - General Family Medicine 08/19/23 documented as of this encounter
--- OUTSIDE RECORDS SUMMARY | 2024-09-02 13:33 | XMS_ITS | Encounter Summary ---
Author Organization [facility] [employer] Address [address] [facility] 7 [place] [address] Care Team Providers Care Meter Shop Supervisor Name Role Phone Vivien Ohara MD Primary Care Provider [phone] Reason for Visit * Reason Comments Med Refill Encounter Details Date Type Department Care Team ([facility] st Contact Info) Description 05/04/2024 Refill [facility] [address] [place] [address] Vivien Ohara MD [address] [place] [address] Social History Tobacco Use Types Packs/Day Years [...] documented as of this encounter Care Teams Meter Shop Supervisor Relationship Specialty Start Date End Date Vivien Ohara MD [address] [place] [address] PCP - General Family Medicine 08/19/23 documented as of this encounter
--- OUTSIDE RECORDS SUMMARY | 2024-09-02 13:33 | XMS_ITS | Clinical Summary ---
Author Organization [facility] Address [address] [place] [address] Care Team Providers Care Structures Technician Name Role Phone Vivien Ohara MD Primary Care Provider [phone] Allergies Active Allergy Reactions Criticality Noted Date Comments Sulfamethoxazole-Trimethoprim 2022 Penicillins Rash Low 01/25/2012 Sulfa Antibiotics Anaphylaxis High 07/20/2022 Trimethoprim Rash Low 04/25/2024 Medications clobetasol (Temovate) 0.05 % ointment Apply topically. 013 Active cholecalciferol (Vitamin D-3) 25 MCG (1000 UT) capsule Take 1 capsule by mouth in the morning. 022 Active montelukast (Singulair) 10 MG tablet Take 1 tablet by mouth at bed time. 016 Active polyethylene glycol, PEG, 3350 (Miralax) 17 g packet MIX 1 PACKET IN 4-8 OUNCES OF WATER AND DRINK ONCE DAILY 022 Active Stool Softener/Laxativ e 50-8.6 MG tablet Take 1 tablet by mouth in the morning. 022 Active omeprazole (PriLOSEC) [address] Hearn ns:Heartburn TAKE 1 CAPSULE BY MOUTH BEFORE BREAKFAST. DO NOT BREAK, CRUSH, DISSOLVE OR CHEW. 90 capsule 023 Active Blood Glucose Monitoring Suppl (ONE TOUCH ULTRA 2) w/Device kit 1 each 3 times daily. 1 kit 023 Active FreeStyle lancets 1 each by Other route 3 times daily. TEST BLOOD SUGAR THREE TIMES DAILY DIRECTED 100 each 11 023 Active Blood Glucose Monitoring Suppl (FreeStyle [place] Lite) w/Device kit TEST BLOOD SUGAR THREE TIMES DAILY DIRECTED 1 kit Active Diclofenac Sodium 1 % gel APPLY 2 GRAMS TOPICALLY TO AFFECTED AREA(S) FOUR TIMES DAILY 100 g 3 023 Active cyclobenzaprine (Flexeril) 10 MG tablet Take 1 tablet (10 mg) by mouth at bedtime for 10 days. 10 tablet 024 Active albuterol (2.5 MG/3ML) 0.083% nebulizer solutionIndicati ons:Mild intermittent asthma with acute exacerbation INHALE 1 AMPULE USING A NEBULIZER FOUR TIMES DAILY NEEDED 90 mL 3 024 Active levothyroxine (Synthroid, Levoxyl) 50 MCG tabletIndication s:Multinodular goiter Take 1 tablet (50 mcg) by mouth Once per day. 90 tablet 2 Active valsartan (Diovan) 160 MG tabletIndication s:Hypertension, unspecified type Take 1 tablet (160 mg) by mouth Once per day. 90 tablet 3 024 2024 Active lidocaine (Lidoderm) 5 % patchIndications :Primary osteoarthritis involving multiple joints Apply 1 patch topically Once per day. Remove & discard patch within 12 hours or as directed by MD. 30 patch Active Alcohol Swabs (Alcohol Prep) 70 % pads USE EVERY DAY 100 each 11 024 Active fenofibrate (Tricor) 54 MG tablet TAKE 1 TABLET BY MOUTH ONCE DAILY IN THE MORNING 90 tablet 1 024 Active glucose blood (FREESTYLE LITE) test stripIndications :Type 2 diabetes mellitus without complication, without long-term current use of insulin ([facility]) TEST BLOOD SUGAR THREE TIMES DAILY DIRECTED 100 each 5 024 Active TRUEplus Lancets 33G miscIndications: Type 2 diabetes mellitus without complication, without long-term current use of insulin ([facility]) TEST BLOOD SUGAR THREE TIMES DAILY DIRECTED 100 each 5 024 Active cetirizine (ZyrTEC) 10 MG tabletIndication s:Seasonal allergic rhinitis, unspecified trigger TAKE 1 TABLET BY MOUTH EVERY DAY NEEDED FOR ALLERGY OR RUNNY NOSE 90 tablet 1 024 Active EPINEPHrine (Epipen) 0.3 MG/0.3ML injection syringe INJECT INTRAMUSCULARLY DIRECTED ON PACKAGE AND GO TO EMERGENCY ROOM OR CALL 911. 2 each 1 024 Active albuterol (Ventolin HFA) 108 (90 Base) MCG/ACT inhalerIndicatio ns:Mild intermittent asthma with acute exacerbation INHALE 2 PUFFS BY MOUTH EVERY 4 TO 6 HOURS NEEDED 18 g 1 024 Active tolterodine LA (Detrol LA) 4 MG 24 hr capsule Take 4 mg by mouth Once per day. 024 Active fluticasone (Flonase) 50 MCG/ACT nasal sprayIndications :Seasonal allergic rhinitis, unspecified trigger INSTILL 1-2 SPRAYS IN EACH NOSTRIL ONCE DAILY NEEDED 48 g 1 024 Active metFORMIN, OSM, (Fortamet) 1000 MG 24 hr tablet Take 1 tablet (1,000 mg) by mouth with breakfast and with evening meal. Do not crush, chew, or split. 180 tablet 3 024 2024 Active Aspirin Low Dose 81 MG EC tabletIndication s:Primary hypertension TAKE 1 TABLET BY MOUTH ONCE DAILY IN THE MORNING 90 tablet 024 Active Ozempic, 0.25 or 0.5 MG/DOSE, 2 MG/3ML solution pen-injectorIndi cations:Type 2 diabetes mellitus without complication, without long-term current use of insulin (CMS/HCC) INJECT 0.25 MG SUBCUTANEOUSLY EVERY 7 DAYS IN THE ABDOMEN, THIGHS OR UPPER ARM. ROTATE INJECTION SITES. 3 mL 1 024 Active gabapentin (Neurontin) 100 MG capsuleIndicatio ns:Fibromyalgia TAKE 2 CAPSULES BY MOUTH EVERY 8 HOURS 180 capsule 2 024 Active fluticasone furoate (Arnuity Ellipta) 100 MCG/ACT inhalerIndicatio ns:Mild intermittent asthma with acute exacerbation INHALE 1 PUFF BY MOUTH EVERY DAY AT THE SAME TIME RINSE MOUTH AFTER USING 30 each 3 025 Active omeprazole (PriLOSEC) [address] capsule TAKE 1 CAPSULE BY MOUTH EVERY DAY 90 capsule 1 025 Active azithromycin (Zithromax) 250 MG tabletIndication s:Subacute cough Take 2 tablets (500 mg) by mouth Once per day for 1 day, THEN 1 tablet (250 mg) Once per day for 4 days. 6 tablet 025 2024 Active omeprazole (PriLOSEC) [address] capsule TAKE 1 CAPSULE BY MOUTH EVERY DAY 90 capsule 1 024 2024 Discontinued fluticasone furoate (Arnuity Ellipta) 100 MCG/ACT inhalerIndicatio ns:Mild intermittent asthma with acute exacerbation INHALE 1 PUFF BY MOUTH EVERY DAY, RINSE MOUTH AFTER USING. 30 each 3 024 2024 Discontinued Active Problems Problem Noted Date Diagnosed Date Osteopenia 01/16/2024 Assessment & Plan (01/16/2024 11:05 AM EDT): -DEXA on 01/07/24 -Osteopenia based on the lowest T-score value of -1.7 in the femoral neck applying World Health Organization criteria. -10-YEAR FRACTURE RISK PREDICTION, FRAX: Major osteoporotic fracture 9.2%. Hip fracture 0.5%. -encouraged to have adequate vitamin intake Vitamin D deficiency 01/16/2024 Assessment & Plan (01/16/2024 11:16 AM EDT): - had been on Vitamin D supplementation in the past - will recheck labs Mixed stress and urge urinary incontinence 01/15 Assessment & Plan (05/13/2024 1:54 PM EDT): - previously seen by [facility] Urologist -was recommended bladder suspension surgery -pt has both stress and urge incontinence -will refer back to Urologist -discussed about possible side effects including urinary problem with new medication for type 2 diabetes and pt verbalize understanding Assessment & Plan (01/16/2024 11:23 AM EDT): - previously seen by [facility] Urologist -was recommended bladder suspension surgery -pt has both stress and urge incontinence -will refer back to Urologist -discussed about possible side effects including urinary problem with new medication for type 2 diabetes and pt verbalize understanding Gastroesophageal reflux disease 10/06/2023 Assessment & Plan (01/16/2024 8:53 AM EDT): - continue omeprazole Assessment & Plan (10/06/2023 5:09 PM EDT): - continue omeprazole Sensorineural hearing loss (SNHL) of both ears 0 10/06/2023 Assessment & Plan (01/16/2024 8:54 AM EDT): - refer to audiology per patient's request Assessment & Plan (10/06/2023 5:36 PM EDT): - refer to audiology per patient's request Hypothyroidism 10/01/2023 Assessment & Plan (05/13/2024 1:55 PM EDT): - current replacement: levothyroxine 50 mcg daily - last TSH 3.60 in January 2022 - recheck lab and adjust dose accordingly Assessment & Plan (01/16/2024 8:53 AM EDT): - current replacement: levothyroxine 50 mcg daily - last TSH 3.60 in January 2022 - recheck lab and adjust dose accordingly Assessment & Plan (10/06/2023 4:56 PM EDT): - current replacement: levothyroxine 50 mcg daily - last TSH 3.60 in January 2022 - recheck lab and adjust dose accordingly Numbness of right foot 04/25/2023 Overview (04/25/2023): R toes numbness x 1 month Monofilament exam WNL 03/14/23 Reports sx improved with gabapentin Assessment & Plan (04/25/2023 11:24 PM EDT): Continue Gabapentin for foot numbness F/u 1-2 months with new PCP to discuss continued foot numbness. Type 2 diabetes mellitus 02/08/2023 Overview (04/25/2023): New onset Education provided re: therapeutic lifestyle changes. Encouraged patient to exercise/walk as much as possible, avoid soda/sugary beverages, drink water, eat high fiber/whole grains, fresh or frozen fruits and veg, try to avoid greasy and/or sugary foods. Medication Regimen Metformin 1000 mg BID w/ meals (increased 03/14/23) Needs new glucometer, Rx new machine A1c: 7.3 on 03/14/23 and 02/08/23, increased was 6.2 on 07/20/22 (Target </= 7.0) Glucose: 195 on 03/14/23 Discussed benefit from Nutrition d/t new diagnosis of Diabetes. Microalbumin/Cr:Alb: Not performed yet. Discuss next visit Lipids: TG elevated 05/04/22 Eye exam: 10 years ago. Noticing floaters. Will task MA to contact pt about eye care centers she can call for appt Dental: Refer 03/14/23 PNA (PPSV, then PCV 13): Declines PCV 20 today 03/14/23 TDap/Td: 03/02/2011, states she had repeat in [place]. No records. Will task MA to try and locate [place] records Foot exam/peripheral pulses: WNL 05/07 on 03/14/23 EFREM/ARB: Lisinopril 20 mg Statin: none Assessment & Plan (05/17/2024 1:14 PM EDT): - Dx in January 2023 - A1C 7.2% on 05/13/24 - continue working on lifestyle modifications - patient switched back to metformin 1000 mg once daily and sometimes twice daily, patient is interested in starting GLP1-RA, will start GLP1-RA. - treatment history: patient tried farxiga briefly. Patient has relative contraindications, mainly urinary symptoms. - food exam inspection only today; will check comprehensive exam at next visit - eye exam: referred again to [facility] eye care - microalbumin: Apr 2022, mild microalbuminuria - lipid profile: Apr 2022 - follow up in 3-4 mo or sooner prn Assessment & Plan (01/16/2024 11:19 AM EDT): - Dx in January 2023 - A1C 7.1% compared to last 6.8% on 10/01/23 - continue working on lifestyle modifications - switching from Metformin to Farxiga 01/16/24 - food exam done by previous PCP in January 2023, right foot numbness - eye exam: referred again to [facility] eye care - microalbumin: Apr 2022, mild microalbuminuria - lipid profile: Apr 2022 - follow up in 3-4 mo or sooner prn Assessment & Plan (10/06/2023 5:00 PM EDT): - Dx in January 2023 - A1C 6.8% on 10/01/23, improved from 7.3% - continue working on lifestyle modifications - continue metformin 1000 mg bid - food exam done by previous PCP in January 2023, right foot numbness - eye exam: referred again to [facility] eye care - microalbumin: Apr 2022, mild microalbuminuria - lipid profile: Apr 2022 - follow up in 3-4 mo or sooner prn Assessment & Plan (04/25/2023 11:21 PM EDT): Refer dental MA will contact about eye care centers that accept [facility] Increase Metformin dose Refer Nutrition d/t new Diabetes diagnosis F/u 3 months with new PCP or sooner PRN Assessment & Plan (02/08/2023 7:10 PM EDT): Continue Metformin Discuss Diabetes further at f/u appt F/u 1 month or sooner PRN Multilevel degenerative disc disease 10/19/2022 Assessment & Plan (10/06/2023 4:54 PM EDT): 07/20/2022 Cervical, thoracic and lumbar Xrays: Multilevel degenerative changes w/out any foraminal narowing of lumbar, throcic, and cervical spine. Continue current medications for pain Refer to PT Assessment & Plan (10/19/2022 5:21 PM EDT): Increasing her Cymbalta and referring her to PT F/up 2 months to discuss effectiveness. 07/20/2022 Cervical, thoracic and lumbar Xrays: Multilevel degenerative changes w/out any foraminal narowing of lumbar, throcic, and cervical spine. With focal areas Post covid-19 condition, unspecified 07/26/2022 Lichen sclerosus 07/20/2022 Cervical polyp 07/20/2022 Multinodular goiter 07/20/2022 Fibromyalgia 07/20/2022 Overview (02/08/2023): self-reported hx of fibromyalgia. Reports Voltaren gel improves sx slightly. Reports she does not remember taking Cymbalta that was Rx on 05/01/22 No record of xrays of the spine. Never started PT Treating w/ massage, lidocaine patches, Voltaren gel, cymbalta 40 mg daily. Cymbalta was too sedating. Assessment & Plan (05/13/2024 1:55 PM EDT): Pt self-discontinued cymbalta Rx Gabapentin 100 mg TID PRN Refer to PT again Referred to Rheum by previous PCP for management of fibromyalgia. Recommended acupuncture Assessment & Plan (10/06/2023 4:53 PM EDT): Pt self-discontinued cymbalta Rx Gabapentin 100 mg TID PRN Refer to PT again Referred to Rheum by previous PCP for management of fibromyalgia. Recommended acupuncture Assessment & Plan (02/08/2023 7:23 PM EDT): Pt self-discontinued cymbalta Rx Gabapentin 100 mg TID PRN Refer to PT again Refer to Rheum for management of fibromyalgia. F/u 1 month or sooner PRN Assessment & Plan (10/19/2022 2:31 PM EDT): Increased Cymbalta to 40 mg once johnson. Discussed potential drowsiness with patient and if it becomes an issue to go back to taking 30 mg once johnson. Allergic rhinitis 01/10/2015 Assessment & Plan (10/06/2023 5:02 PM EDT): - continue cetirizine, montelukast, and Fluticasone nasal (Flonase) - check RAST or referral to allergy / learning specialist Dyslipidemia 10/31/2012 Assessment & Plan (01/16/2024 8:54 AM EDT): - last lipid profile in Apr 2022 - patient has been taking fenofibrate, but not on statin - will discuss after lab Assessment & Plan (10/06/2023 5:06 PM EDT): - last lipid profile in Apr 2022 - patient has been taking fenofibrate, but not on statin - will discuss after lab Obesity 10/31/2012 Overview (02/08/2023): Has tried lifestyle changes without significant weight loss Assessment & Plan (05/13/2024 4:53 PM EDT): - She has tried to improve her diet - She tried SGLT2 inhibitor, but she self-discontinued due to its ineffectiveness for glycemic control - Will prescribe semaglutide. - Continue working on lifestyle modifications Assessment & Plan (02/08/2023 7:24 PM EDT): Refer to weight mgmt to discuss treatment options F/u 1 month or sooner PRN Osteoarthritis 10/14/2012 Assessment & Plan (10/06/2023 4:54 PM EDT): - going to PT Asthma 1960 Assessment & Plan (05/13/2024 1:54 PM EDT): - continue mometasone (Asmanex) as maintenance - continue montelukast - continue albuterol neb and HFA prn Assessment & Plan (01/16/2024 8:53 AM EDT): - continue mometasone (Asmanex) as maintenance - continue montelukast - continue albuterol neb and HFA prn Assessment & Plan (10/06/2023 4:50 PM EDT): - continue mometasone (Asmanex) as maintenance - continue montelukast - continue albuterol neb and HFA prn Assessment & Plan (07/26/2022 3:39 PM EST): Uncontrolled asthma post covid with acute exacerbation. Sympoms > 2 weeks . SaO2 normal on RA. Hypertension 1960 Assessment & Plan (06/04/2024 3:10 PM EST): Pt did not takes meds yet, she will take she she gets home. Assessment & Plan (05/13/2024 10:34 AM EDT): -Goal BP < 140/90 per JNC-8 and < 130/80 per ACC/AHA guideline (Treatment threshold >= 130/80) - BP not at goal today. Second BP measurement was at goal. Patient has not been adherent to CPAP. -Continue working on lifestyle modifications -Recommended self-monitoring BP. -Continue current medications: continue Valsartan 160 mg -Optimize Tx for DONA -Follow up in 3-6 mo, sooner if any problem arises Assessment & Plan (01/16/2024 11:15 AM EDT): -Goal BP < 140/90 per JNC-8 and < 130/80 per ACC/AHA guideline (Treatment threshold >= 130/80) - BP not at goal 01/16/24 and has not been the past few times at home. -Continue working on lifestyle modifications -Recommended self-monitoring BP. -Continue current medications: switched from 20 mg of Lisinopril to 160 mg Valsartan -Optimize Tx for DONA -Follow up in 3-6 mo, sooner if any problem arises Assessment & Plan (10/06/2023 4:52 PM EDT): -Goal BP < 140/90 per JNC-8 and < 130/80 per ACC/AHA guideline (Treatment threshold >= 130/80) - BP not at goal -Continue working on lifestyle modifications -Recommended self-monitoring BP. -Continue current medications: lisinopril 20 mg daily -Optimize Tx for DONA -Follow up in 3-6 mo, sooner if any problem arises Obstructive sleep apnea syndrome 1960 Overview (02/08/2023): Ordered sleep study in the past Not contacted for sleep study Assessment & Plan (05/13/2024 1:54 PM EDT): - sleep study at [facility] on 03/06/23, ordered by previous PCP - report recommends in-lab for titration study or auto-PAP 6-20 cm H2O - script for AutoPAP was written in September 2023, will check up on that Assessment & Plan (01/16/2024 11:20 AM EDT): - sleep study at [facility] on 03/06/23, ordered by previous PCP - report recommends in-lab for titration study or auto-PAP 6-20 cm H2O - script for AutoPAP was written in September 2023, will check up on that Assessment & Plan (10/06/2023 4:49 PM EDT): - sleep study at [facility] on 03/06/23, ordered by previous PCP - report recommends in-lab for titration study or auto-PAP 6-20 cm H2O - will write a script for AutoPAP Assessment & Plan (02/08/2023 7:19 PM EDT): Will repeat order sleep study F/u 1 month or sooner PRN Resolved Problems Problem Noted Date Diagnosed Date Resolved Date Chronic back pain 10/19/2022 10/19/2022 Cough in adult 07/26/2022 10/01/2023 Urge incontinence of urine 06/04/2012 0 01/16/2024 Impaired fasting glucose 04/01/2012 Lumbar back pain 1960 10/19/2022 Assessment & Plan (10/18/2022 4:14 PM EDT): Is patient looking for pain management or PT? Encounters Date Type Department Care Team Description 09/01/2024 6:00 PM EST Office Visit [facility] [address] [place] [phone] Yuval Henry MD Subacute cough 08/10/2024 Refill [facility] [address] [place] [address] Vivien Ohara MD 08/08/2024 Refill [facility] [address] [place] [address] Vivien Ohara MD Mild intermittent asthma with acute exacerbation 07/14/2024 Telephone [facility] [address] [place] [address] Vivien Ohara MD 07/11/2024 Refill [facility] [address] [place] [address] Vivien Ohara MD Fibromyalgia 07/09/2024 Refill [facility] [address] [place] [address] Vivien Ohara MD Type 2 diabetes mellitus without complication, without long-term current use of insulin ([facility]) 06/14/2024 Refill [facility] [address] [place] [phone] Vivien Ohara MD Primary hypertension 06/04/2024 3:00 PM EST Office Visit [facility] [address] [address] Hailey Gomez MD Acute URI (Primary Dx); Hypertension, unspecified type 06/02/2024 Telephone [facility] [address] [place] [address] [phone] Vivien Ohara MD from Last 3 Months Immunizations Name Administration Dates Next Due Hep B, adult 04/26/2015,11/02/2014,08/31/2014 Influenza, Split (incl. erin fied surface antigen) 05/25/2013 Pneumococcal Polysaccharide PPSV23 04/17/2006 Pneumococcal, Unspecified 04/17/2006 TD (adult), 2 Lf tetanus tox oid, preservative free, adsorbed 01/28/2001 Tdap 01/16/2024,03/02/2011 Social History Tobacco Use Types Packs/Day Years Used Date Smoking Tobacco: Never Passive Smoke Exposure: Never Smokeless Tobacco: Never Tobacco Cessation:Counseling Given: Not Answered Alcohol Use Standard Drinks/Week Comments Never 0 [...] Orientation Straight 05/30/2023 8: 41 AM EDT Last Filed Vital Signs Vital Sign Reading Time Taken Comments Blood Pressure 155/86 09/01/2024 5:56 PM EST Pulse 88 09/01/2024 5:56 PM EST Temperature 36.7 ??C (98 ??F) 09/01/2024 5:56 PM EST Respiratory Rate 18 09/01/2024 5:56 PM EST Oxygen Saturation 97% 09/01/2024 5:56 PM EST Inhaled Oxygen Concentration - - Weight 85.3 kg (188 lb) 09/01/2024 5:56 PM EST Height 147.3 cm (4' 10 ) 06/06/2023 3:14 PM EST Body Mass Index 39.29 06/06/2023 3:14 PM EST Plan of Treatment Health Maintenance Due Date Last Done Comments CT Colonography 1960 Colonoscopy 1960 Colorectal Cancer Screening 1960 FIT DNA/Cologuard 1959 FIT 1959 FOBT 1960 Sigmoidoscopy 1960 Hepatitis C Screening 1977 Pap Smear 01/21/1980 Cervical Cancer Screening 1989 HPV/Cotest 1989 Pneumococcal Vaccine: 50+ Years (2 of 2 - PCV) 04/17/2007 04/17/2006, 04/17/2006 Zoster Vaccines (1 of 2) 2009 RSV Patients and Patients Aged 60 years or older (1 - Risk 60-74 years 1-dose series) 2019 Diabetes: Urine Protein Screening 05/01/2023 05/01/2022 Depression Screening 03/14/2024 03/14/2023, 03/14/20 Diabetes: Foot Exam 03/14/2024 03/14/2023, COVID-19 Vaccine ( season) 2024 Influenza Vaccine (#1) 2024 05/25/2013 Diabetes: Hemoglobin A1C 08/13/2024 024, 01/16/2024, 10/01/2023, Additional history exists SDOH Screening 09/23/2024 09/23/2023 Alcohol/Substance Use Screening 01/15/2025 01/16/2024 Lipid Panel 05/13/2025 05/13/2024, 05/04/2022 Tobacco Screening 06/04/2025 06/04/2024 Mammogram 01/06/2026 01/07/2024 Eye Exam 04/30/2026 04/30/2024, 09/2023, 04/30/2024, Additional history exists DTaP/Tdap/Td Vaccines (3 - Td or Tdap) 01/15/2034 01/16/2024, 03/02/2011, 01/28/2001 Hepatitis B Vaccines Completed 04/26/2015, 11/02/2014, 08/31/2014 HIB Vaccines Aged Out No longer eligi ble based on patient's age to complete this topic HPV Vaccines Aged Out No longer eligi ble based on patient's age to complete this topic Hepatitis A Vaccines Aged Out No long er eligible based on patient's age to complete this topic IPV Vaccines Aged Out No longer eligi ble based on patient's age to complete this topic Meningococcal Vaccine Aged Out No melly gagandeep eligible based on patient's age to complete this topic RSV under 20 months Aged Out No longe r eligible based on patient's age to complete this topic Rotavirus Vaccines Aged Out No longer eligible based on patient's age to complete this topic Procedures Procedure Name Priority Date/Time Associated Diagnosis Comments POCT RAPID COVID ANTIGEN Routine 09/01/2024 6:09 PM EST Subacute cough POCT INFLUENZA B (ID NOW RAPID MOLECULAR) Routine 09/01/2024 6:09 PM EST Subacute cough POCT INFLUENZA A (ID NOW RAPID MOLECULAR) Routine 09/01/2024 6:09 PM EST Subacute cough POCT INFLUENZA B (ID NOW RAPID MOLECULAR) Routine 06/04/2024 3:15 PM EST Acute URI POCT INFLUENZA A (ID NOW RAPID MOLECULAR) Routine 06/04/2024 3:14 PM EST Acute URI POCT RAPID COVID ANTIGEN Routine 06/04/2024 3:13 PM EST Acute URI POC CHAPA ID NOW STREP A Routine 06/04/2024 3:12 PM EST Acute URI LIPID PANEL WITH REFLEX TO DIRECT LDL Routine 05/13/2024 11:00 AM EDT Type 2 diabetes mellitus without complication, without long-term current use of insulin ([facility]) Hypertension, unspecified type POCT GLYCOSYLATED HEMOGLOBIN (HGB A1C) Routine 05/13/2024 9:58 AM EDT Type 2 diabetes mellitus without complication, without long-term current use of insulin ([facility]) BI MAMMOGRAM SCREENING TOMOSYNTHESIS BILATERAL Routine 01/07/2024 12:55 PM EDT ALBUMIN, RANDOM URINE W/CREATININE Routine 05/01/2022 4:14 PM EDT from Last 3 Months or Most Recently Relevant to Health Maintenance Results * Influenza B (ID NOW Rapid Molecular) (09/01/2024 6:09 PM EST) Only the most recent of2 resultswithin the time period is included. Influenza B Negative Negative, Indeterminate [facility] Swab 09/01/2024 6:09 PM EST us Yuval Henry MD POINT OF CARE TEST ENTER/EDIT OR DERABLES Final Result Performing Organization Address [facility] Co de Phone Number [facility] [address] [place] [phone] * Influenza A (ID NOW Rapid Molecular) (09/01/2024 6:09 PM EST) Only the most recent of2 resultswithin the time period is included. Pathologist [facility] Influenza A Negative Negative, Indeterminate [facility] Swab 09/01/2024 6:09 PM EST us Yuval Henry MD POINT OF CARE TEST ENTER/EDIT OR DERABLES Final Result Performing Organization Address [facility] Co de Phone Number [facility] [facility] [address] [place] [phone] * POCT Rapid COVID Ag (09/01/2024 6:09 PM EST) Only the most recent of2 resultswithin the time period is included. Rapid COVID Ag Negative Swab 09/01/2024 6:09 PM EST us Yuval Henry MD POINT OF CARE TEST ENTER/EDIT OR DERABLES Final Result * POCT Rapid Strep A CHAPA ID NOW (06/04/2024 3:12 PM EST) Rapid Strep A Screen Negative Negative, None Detected QC Media Lot # [id number] Lot# Expiration Date Swab 06/04/2024 3:12 PM EST Hailey Gomez MD POINT OF CARE TEST ENTER/E DIT ORDERABLES Final Result * (ABNORMAL) Lipid Panel with Reflex to Direct LDL (05/13/2024 11:00 AM EDT) Triglycerides 200(H) <150 mg/dL [facility] Comment:Desirable Triglyceri de: less than 150 mg/dLBorderline High Triglyceride 150-199 mg/dLHigh Triglyceride: 200-499 mg/dLVery High Triglyceride: greater than or equal to 5OO mg/dL Cholesterol 180 <200 mg/dL [facility] Comment:Desirable Cholestero l: less than 200 mg/dLBorderline High Cholesterol: 200-239 mg/dLHigh Cholesterol: greater than 239 mg/dL LDL Cholesterol Calculated 95 <100 mg/dL [facility] Comment:Desirable LDL: less than 100 mg/dLNear Optimal/Above Optimal LDL: 110- 129 mg/dLBorderline High LDL: 130-159 mg/dLHigh LDL: 160-189 mg/dLVery High LDL: greater than or equal to 190 mg/dL HDL Cholesterol 45 >40 mg/dL [facility] Comment:Desirable HDL: great er than 40 mg/dL Note: This HDL assay may give artificially low results in patients with liver disease. Blood 05/13/2024 11:0 0 AM EDT 05/13/2024 11:37 AM EDT Vivien Ohara MD LAB BLOOD ORDERABLES Final Resul t [facility] [address] [place] [phone] * (ABNORMAL) POCT glycosylated hemoglobin (Hgb A1c) (05/13/2024 9:58 AM EDT) Hemoglobin A1C 7.2(A) 4.0 - 6.0 % QC Media Lot # [id number] Lot# Expiration Date [id number] Blood Capillary blood specimen / Unknown 05/13/2024 9:58 AM EDT Vivien Ohara MD POINT OF CARE TEST ENTER/EDIT OR DERABLES Final Result * BI Mammogram Screening Tomosynthesis Bilateral (01/07/2024 12:55 PM EDT) Anatomical Region Laterality Modality Breast Bilateral Mammography 01/07/2024 12:5 5 PM EDT Narrative 02/06/2024 9:41 AM EDT ? [facility] [place] ? [address] ?[place] [address] ? Mammography Report ? Signed ? Patient: Deleon,Lia ?MR#: [id number] ?? 910 ? : 1960 ?Acct:[id number] ? Age/Sex: 63 / F ?ADM Date: 01/07/24 ? Loc: HO.MAMMO ? Attending Dr: Vivien Ohara MD ? Ordering Physician: Vivien Ohara MD ?Results: 1Negative ? Date of Service: 01/07/24 ?Follow Up: 1 Year From Orig ?? inal Mammogram ? Procedure(s): MM tomosynthesis screening BI ?? Accession Number(s): [id number] ? cc: Vivien Ohara MD ? EXAMINATION: ?? MM SCREENING DIGITAL BREAST TOMOSYNTHESIS, BILATERAL ? CLINICAL INFORMATION: ? Screening. Asymptomatic. ? COMPARISON: ?? Mammography: This study is compared with prior exams dating back to ?? 2018. ? TECHNIQUE: ?? Digital breast tomosynthesis is performed in both the craniocaudal and ?? mediolateral oblique views along with computer-aided detection (CAD). ?? Synthesized 2D images are generated from the tomosynthesis. ? FINDINGS: ?? The breasts are almost entirely fatty (ACR BI-RADS breast composition ?? Category a). ? There are no significant masses, abnormal calcifications, or other ?? abnormalities. ? MM/MM tomosynthesis screening BI ?? IMPRESSION: ?? No mammographic evidence of malignancy. ? ASSESSMENT: ? BI-RADS BI-RADS 1 - Negative ? RECOMMENDATION: ?? Routine annual mammography screening. ? 1 year F/U ? This examination should not preclude the clinical evaluation of a ?? suspicious palpable abnormality. ? This patient's information was entered into a reminder system with a ?? target due date for their next mammogram. ? Dictated By: ?Aga Cerrato MD ? Signed By: ?<Electronically signed by Aga Cerrato MD in OV> ? 02/06/24 0937 ? DD/ 1255 ? TD/TT: ? Spray Gun Repairer: ? Procedure Note Elverter, Image - 02/06/2024 [facility] [address] [place] [address] [place] [address] Mammography Report Signed Patient: Nathanael Deleon#: [id number] : 9Acct:[id number] Age/Sex: 63 / FADM Date: 01/07/24 Loc: BECK Attending Dr: Vivien Ohara MD Ordering Physician: Vivien Oharaesults: 1Negative Date of Service: 01/07/24Follow Up: 1 Year From [facility] Mammogram Procedure(s): MM tomosynthesis screening BI Accession Number(s): [id number] cc: Vivien Ohara MD EXAMINATION: MM SCREENING DIGITAL BREAST TOMOSYNTHESIS, BILATERAL CLINICAL INFORMATION: Screening. Asymptomatic. COMPARISON: Mammography: This study is compared with prior exams dating back to 2018. TECHNIQUE: Digital breast tomosynthesis is performed in both the craniocaudal and mediolateral oblique views along with computer-aided detection (CAD). Synthesized 2D images are generated from the tomosynthesis. FINDINGS: The breasts are almost entirely fatty (ACR BI-RADS breast composition Category a). There are no significant masses, abnormal calcifications, or other abnormalities. MM/MM tomosynthesis screening BI IMPRESSION: No mammographic evidence of malignancy. ASSESSMENT: BI-RADS BI-RADS 1 - Negative RECOMMENDATION: Routine annual mammography screening. 1 year F/U This examination should not preclude the clinical evaluation of a suspicious palpable abnormality. This patient's information was entered into a reminder system with a target due date for their next mammogram. Dictated By: Aga Cerrato MD Signed By: <Electronically signed by Aga Cerrato MD in OV> 02/06/24 0937 DD/ 1255 TD/TT: Spray Gun Repairer: Vivien Ohara MD IM BI PROCEDURES Final Result * (ABNORMAL) ALBUMIN, RANDOM URINE W/CREATININE (05/01/2022 4:14 PM EDT) Microalbumin Urine 3.5 See Note: mg/dL [facility] Comment: Reference Range: ?? Reference Range Not established Microalb/Creat Ratio 38(H) <30 mcg/mg creat [facility] Comment: ?? The ADA defines abnormalities in albumin excretion as follows: ?? Albuminuria Category ?Result (mcg/mg creatinine) ?? Normal to Mildly increased ?? <30 Moderately increased ? 30-299 ?? Severely increased ? > OR = 300 ?? The ADA recommends that at least two of three specimens collected within a 3-6 month period be abnormal before considering a patient to be within a diagnostic category. Creatinine, Urine 92 20 - 275 mg/dL [facility] 05/01/2022 4:14 PM EDT Kandi Vanessa WARBLE SAW OPERATOR LAB URINE ORDERABLES Final Result [facility] from Last 3 Months or Most Recently Relevant to Health Maintenance Insurance Care Teams Structures Technician Relationship Specialty Start Date End Date Vivien Ohara MD [address] [place] [address] PCP - General Family Medicine 08/19/23
--- OUTSIDE RECORDS SUMMARY | 2024-09-02 13:33 | XMS_ITS | Encounter Summary ---
Author Organization [email or web address] Address [address] [facility] 7 [place] [address] Care Team Providers Care Roof Panel Hanger Name Role Phone Vivien Ohara MD Primary Care Provider [phone] Reason for Visit * Reason Onset Date Comments Med Refill 03/10/2024 Encounter Details Date Type Department Care Team (Late st Contact Info) Description 03/10/2024 Refill [facility] [address] [place] [address] Vivien Ohara MD [address] [place] [address] Primary osteoarthritis involving multiple joints Social History Tobacco Use Types Packs/Day Years [...] as of this encounter Visit Diagnoses Diagnosis Primary osteoarthritis involving multiple joints documented in this encounter Additional Health Concerns Assessment Noted Time PHQ-9 Depression Total Score: 0 03/14/20 23 1:40 PM EDT documented as of this encounter Care Teams Roof Panel Hanger Relationship Specialty Start Date End Date Vivein Ohara MD [address] [place] [address] PCP - General Family Medicine 08/19/23 documented as of this encounter
--- OUTSIDE RECORDS SUMMARY | 2024-09-02 13:33 | XMS_ITS | Encounter Summary ---
Author Organization [employer] Address [address] [facility] 7t [place] [address] Care Team Providers Care Customer Service Correspondence Clerk Name Role Phone Vivien Ohara MD Primary Care Provider [phone] Reason for Visit * Reason Comments Med Refill Encounter Details Date Type Department Care Team ([facility] st Contact Info) Description 08/08/2024 Refill [facility] [address] [place], [place] [phone] Vivien Ohara MD [address] [place], [place] [phone] Mild intermittent asthma with acute exacerbation Social [...] documented as of this encounter Care Teams Customer Service Correspondence Clerk Relationship Specialty Start Date End Date Vivien Ohaar MD [address] [place] [phone] PCP - General Family Medicine 08/19/23 documented as of this encounter
[2024-09-02 15:27] LABS: Adenovirus PCR Not Detected (Not Detect.); Bordetella parapertussis PCR Not Detected (Not Detect.); Bordetella pertussis PCR Not Detected (Not Detect.); Chlamydia pneumoniae PCR Not Detected (Not Detect.); Coronavirus 229E PCR Not Detected (Not Detect.); Coronavirus HKU1 PCR Not Detected (Not Detect.); Coronavirus NL63 PCR Not Detected (Not Detect.); Coronavirus OC43 PCR Not Detected (Not Detect.); Human metapneumovirus PCR Not Detected (Not Detect.); Influenza B PCR Not Detected (Not Detect.); Mycoplasma pneumoniae PCR Not Detected (Not Detect.); Parainfluenza 1 PCR Not Detected (Not Detect.); Parainfluenza 2 PCR Not Detected (Not Detect.); Parainfluenza 3 PCR Not Detected (Not Detect.); Parainfluenza 4 PCR Not Detected (Not Detect.); RSV PCR Not Detected (Not Detect.); Rhino/Enterovirus PCR Not Detected (Not Detect.)
[2024-09-02 15:42] LABS: Influenza A PCR Detected (Not Detect.); SARS-CoV-2 PCR Not Detected (Not Detect.)
== END 2024-09-01 00:01 | disposition home or self-care (01) ==
LOC: HO.HHCLNP
PROVIDERS: Visit Provider Family Medicine
DX: R05.2 Subacute cough (principal)
CPT/HCPCS: 87633

== ENCOUNTER → 2024-09-02 14:48 | Outpatient (BNV) | payer OTHER, SELFPAY | PROVIDERS: Visit Provider Radiology Diagnostic Radiology | DX: J84.9 Interstitial pulmonary disease, unspecified (principal) | CPT/HCPCS: 71046 ==

== ENCOUNTER 2024-09-22 16:09 | Outpatient (REF) | payer OTHER, SELFPAY ==
[2024-09-22 16:27] LABS: Appearance Urine Clear; Color Urine Yellow; Glucose Urine UA Negative (Negative); Leukocyte Esterase Urine Large (3+) (Negative); Nitrite Urine Negative (Negative); PH 6.5 (5.0-9.0); UMIC TRIGGER UA YES; Urine Blood Small (1+) (Negative); Urine Ketones Negative (Negative); Urine Protein Negative (Neg-Trace)
[2024-09-22 16:47] LABS: Bacteria Urine 1+ (None Seen); Hyaline Casts Urine 0-2 /LPF (0-2); WBC Urine >50 /HPF (0-5)
--- OUTSIDE RECORDS SUMMARY | 2024-09-22 19:39 | XMS_ITS | Encounter Summary ---
Author Organization [employer] Address [address] [facility] 7 [place] [address] Care Team Providers Care Thread Cutter Name Role Phone Vivien Ohara MD Primary Care Provider [phone] Reason for Visit * Reason Comments Med Refill Encounter Details Date Type Department Care Team (Late st Contact Info) Description 09/09/2024 Refill [facility] [address] [place], [place] [phone] Vivien Ohara MD [address] [place] [address] Seasonal allergic rhinitis, unspecified trigger; Multinodular goiter; Primary hypertension Social History Tobacco Use Types Packs/Day Years [...] as of this encounter Plan of Treatment Upcoming Encounters Date Type Department Care Team (Late st Contact Info) Description 10/26/2024 11:30 AM EDT Office Visit [facility] [address] [place] [phone] Vivien Ohara MD [address] [place] [address] documented as of this encounter Visit Diagnoses Diagnosis Seasonal allergic rhinitis, unspecified trigger Multinodular goiter Nontoxic multinodular goiter Primary hypertension Unspecified essential hypertension documented in this encounter Additional Health Concerns Assessment Noted Time PHQ-9 Depression Total Score: 0 03/14/20 23 1:40 PM EDT documented as of this encounter Care Teams Thread Cutter Relationship Specialty Start Date End Date Vivien Ohara MD [address] [place] [phone] PCP - General Family Medicine 08/19/23 documented as of this encounter
--- OUTSIDE RECORDS SUMMARY | 2024-09-22 19:39 | XMS_ITS | Encounter Summary ---
Author Organization [employer] Address [address] [place] [address] [place] [address] Care Team Providers Care Hops Farmworker Name Role Phone Kandi Vanessa Primary Care Provider [phone] Lakeisha Yadav NP Primary Care Provider [phone] Vivien Ohara MD Primary Care Provider [phone] Reason for Visit * Reason Onset Date Comments Results 08/03/2022 Encounter Details Date Type Department Care Team (Late st Contact Info) Description 08/03/2022 Telephone [facility] [address] [place] [address] Kandi Vanessa FNP [address] [place] [address] Dept [place] [address] Results Social History Tobacco Use Types Packs/Day [...] documented in this encounter Plan of Treatment Upcoming Encounters Date Type Department Care Team (Late st Contact Info) Description 10/26/2024 11:30 AM EDT Office Visit [facility] [address] [place] [address] Vivien Ohara MD [address] [place] [address] documented as of this encounter Visit Diagnoses Not on filedocumented in this encounter Care Teams Hops Farmworker Relationship Specialty Start Date End Date Kandi Vanessa FNP PCP - General Family Medicine 03/07/22 05/02/23 Lakeisha Yadav NP [address] [place] [phone] PCP - General Family Medicine 05/03/23 08/18/23 Vivien Ohara MD [address] [place] [phone] PCP - General Family Medicine 08/19/23 documented as of this encounter
--- OUTSIDE RECORDS SUMMARY | 2024-09-22 19:39 | XMS_ITS | Encounter Summary ---
Author Organization [employer] Address [address] [facility] [address] 7[address] [place] [address] Care Team Providers Care Institutional Research Director Name Role Phone Vivien Ohara MD Primary Care Provider [phone] Reason for Visit * Reason Comments Med Refill Encounter Details Date Type Department Care Team ([facility] st Contact Info) Description 11/06/2023 Refill [facility] [address] [place] [address] Amanda Moreno MD [address] [place] [address] Social History Tobacco Use Types Packs/Day Years [...] Description 10/26/2024 11:30 AM EDT Office Visit [facility] [address] [place] [address] Vivien Ohara MD [address] [place] [phone] documented as of this encounter Visit Diagnoses Not on filedocumented in this encounter Additional Health Concerns Assessment Noted Time PHQ-9 Depression Total Score: 0 03/14/20 23 1:40 PM EDT documented as of this encounter Care Teams Institutional Research Director Relationship Specialty Start Date End Date Vivein Ohara MD [address] [place] [phone] PCP - General Family Medicine 08/19/23 documented as of this encounter
--- OUTSIDE RECORDS SUMMARY | 2024-09-22 19:39 | XMS_ITS | Encounter Summary ---
Author Organization [employer] Address [address] [facility] 7t [place] [address] Care Team Providers Care Senior Online Marketing Manager Name Role Phone Lakeisha Yadav NP Primary Care Provider [phone] Vivien Ohara MD Primary Care Provider [phone] Reason for Visit * Reason Comments Med Refill Encounter Details Date Type Department Care Team ([facility] st Contact Info) Description 08/17/2023 Refill [facility] [address] [place] [address] Name, MD Dylon [address] [place] [address] Mild intermittent asthma with acute exacerbation Social [...] Description 10/26/2024 11:30 AM EDT Office Visit [facility] [address] [place] [address] Vivien Ohara MD [address] [place] [address] documented as of this encounter Visit Diagnoses Diagnosis Mild intermittent asthma with acute exacerbation documented in this encounter Additional Health Concerns Assessment Noted Time PHQ-9 Depression Total Score: 0 03/14/20 23 1:40 PM EDT documented as of this encounter Care Teams Senior Online Marketing Manager Relationship Specialty Start Date End Date Lakeisha Yadav NP [address] [place] [phone] PCP - General Family Medicine 05/03/23 08/18/23 Vivien Ohara MD [address] [place] [address] PCP - General Family Medicine 08/19/23 documented as of this encounter
--- OUTSIDE RECORDS SUMMARY | 2024-09-22 19:40 | XMS_ITS | Clinical Summary ---
Author Organization [employer] Address [address] [facility] [address] [place] [address] Care Team Providers Care Coil Spring Assembler Name Role Phone Vivien Ohara MD Primary Care Provider [phone] Allergies Active Allergy Reactions Criticality Noted Date [...] 023 Active Blood Glucose Monitoring Suppl (FreeStyle C[place]adero Lite) w/Device kit TEST BLOOD SUGAR THREE [...] DAILY NEEDED 90 mL 3 024 Active valsartan (Diovan) 160 MG tabletIndication s:Hypertension, unspecified type Take 1 tablet (160 mg) by mouth Once per day. 90 tablet 3 024 2024 Active lidocaine (Lidoderm) 5 % patchIndications :Primary osteoarthritis involving multiple joints Apply 1 patch topically Once per day. Remove & discard patch within 12 hours or as directed by MD. 30 patch 11 Active Alcohol Swabs (Alcohol Prep) 70 % pads USE EVERY DAY 100 each 024 Active glucose blood (FREESTYLE LITE) test stripIndications :Type 2 diabetes mellitus without complication, without long-term current use of insulin ([facility]) TEST BLOOD SUGAR THREE TIMES DAILY DIRECTED 100 each 5 024 Active TRUEplus Lancets 33G miscIndications: Type 2 diabetes mellitus without complication, without long-term current use of insulin ([facility]) TEST BLOOD SUGAR THREE TIMES DAILY DIRECTED 100 each 5 024 Active EPINEPHrine (Epipen) 0.3 MG/0.3ML injection syringe INJECT INTRAMUSCULARLY DIRECTED ON PACKAGE AND GO TO EMERGENCY ROOM OR CALL 911. 2 each 024 Active albuterol (Ventolin HFA) 108 (90 [...] split. 180 tablet 3 024 2024 Active Ozempic, 0.25 or 0.5 MG/DOSE, 2 MG/3ML solution pen-injectorIndi cations:Type 2 diabetes mellitus without complication, without long-term current use of insulin (CMS/HCC) INJECT 0.25 MG SUBCUTANEOUSLY EVERY 7 DAYS IN THE ABDOMEN, THIGHS OR UPPER ARM. ROTATE INJECTION SITES. 3 mL 1 Active gabapentin (Neurontin) 100 MG capsuleIndicatio ns:Fibromyalgia [...] EVERY DAY 90 capsule 1 025 Active cetirizine (ZyrTEC) 10 MG tabletIndication s:Seasonal allergic rhinitis, unspecified trigger TAKE 1 TABLET BY MOUTH EVERY DAY NEEDED FOR ALLERGY OR RUNNY NOSE 90 tablet 1 025 Active levothyroxine (Synthroid, Levoxyl) 50 MCG tabletIndication s:Multinodular goiter TAKE 1 TABLET BY MOUTH EVERY DAY 90 tablet 1 025 Active fenofibrate (Tricor) 54 MG tablet TAKE 1 TABLET BY MOUTH ONCE DAILY IN THE MORNING 90 tablet 1 025 Active aspirin (Aspirin Low Dose) 81 MG EC tabletIndication s:Primary hypertension TAKE 1 TABLET BY MOUTH ONCE DAILY IN THE MORNING 90 tablet 1 025 Active levothyroxine (Synthroid, Levoxyl) 50 MCG tabletIndication s:Multinodular goiter Take 1 tablet (50 mcg) by mouth Once per day. 90 tablet 2 024 2024 Discontinued fenofibrate (Tricor) 54 MG tablet TAKE 1 TABLET BY MOUTH ONCE DAILY IN THE MORNING 90 tablet 1 024 2024 Discontinued cetirizine (ZyrTEC) 10 MG tabletIndication s:Seasonal allergic rhinitis, unspecified trigger TAKE 1 TABLET BY MOUTH EVERY DAY NEEDED FOR ALLERGY OR RUNNY NOSE 90 tablet 1 024 2024 Discontinued Aspirin Low Dose 81 MG EC tabletIndication s:Primary hypertension TAKE 1 TABLET BY MOUTH ONCE DAILY IN THE MORNING 90 tablet 024 2024 Discontinued( Reorder (will not trigger notification to Pharmacy)) azithromycin (Zithromax) 250 MG tabletIndication s:Subacute cough Take 2 tablets (500 mg) by mouth Once per day for 1 day, THEN 1 tablet (250 mg) Once per day for 4 days. 6 tablet 025 2024 Active Problems Problem Noted Date Diagnosed Date [...] 1:54 PM EDT): - previously seen by [facility] Urologist -was recommended bladder suspension surgery -pt has both stress and urge incontinence -will refer back to Urologist -discussed about possible side effects including urinary problem with new medication for type 2 diabetes and pt verbalize understanding Assessment & Plan (01/16/2024 11:23 AM EDT): - previously seen by [facility] Urologist -was recommended bladder suspension surgery [...] TDap/Td: 03/02/2011, states she had repeat in [place]. No records. Will task [place] to try and locate [place] records Foot exam/peripheral pulses: WNL 05/07 on [...] visit - eye exam: referred again to [facility] eye care - microalbumin: Apr 2022, mild [...] numbness - eye exam: referred again to [facility] eye care - microalbumin: Apr 2022, mild [...] numbness - eye exam: referred again to [facility] eye care - microalbumin: Apr 2022, mild microalbuminuria - lipid profile: Apr 2022 - follow up in 3-4 mo or sooner prn Assessment & Plan (04/25/2023 11:21 PM EDT): Refer dental [place] will contact about eye care centers that accept [facility] Increase Metformin dose Refer Nutrition d/t new [...] check RAST or referral to allergy / employee training specialist Dyslipidemia 10/31/2012 Assessment & Plan (01/16/2024 [...] 1:54 PM EDT): [place] [facility] [place] ordered by previous PCP - report recommends in-lab for titration study or auto-PAP 6-20 cm H2O - script for AutoPAP was written in September 2023, will check up on that Assessment & Plan (01/16/2024 11:20 AM EDT): [place] [facility] [place], ordered by previous PCP - report recommends in-lab for titration study or auto-PAP 6-20 cm H2O - script for AutoPAP was written in September 2023, will check up on that Assessment & Plan (10/06/2023 4:49 PM EDT): - [place] [facility], ordered by previous PCP - [...] Encounters Date Type Department Care Team Description 09/22/2024 1:20 PM EST Office Visit [facility] [address] [place] [phone] Oksana Ernst ANP Dysuria (Primary Dx); Gastroesophageal reflux disease, unspecified whether esophagitis present; Vaginal itching; Type 2 diabetes mellitus with hyperlipidemia (CMS/[facility]) ([facility]) 09/09/2024 Refill [facility] [address] [place] [phone] Oksana Ernst ANP Primary hypertension 09/09/2024 Refill [facility] [address] [place] [address] Vivien Ohara MD Seasonal allergic rhinitis, unspecified trigger; Multinodular goiter; Primary hypertension 09/03/2024 Telephone [facility] [address] [place] [phone] Yuval Henry MD 09/01/2024 6:00 PM EST Office Visit [facility] [address] [place] [phone] Yuval Henry MD Subacute cough 08/10/2024 Refill [facility] [address] [place] [address] Vivien Ohara MD 08/08/2024 Refill [facility] [address] [place] [phone] Vivien Ohara MD Mild intermittent asthma with acute exacerbation 07/14/2024 Telephone [facility] MEDICINE [address] [place] [phone] Vivien Ohara MD 07/11/2024 Refill [facility] [address] [place] [phone] Vivien Ohara MD Fibromyalgia 07/09/2024 Refill [facility] MEDICINE [address] [place] [phone] Vivien Ohara MD Type 2 diabetes mellitus without complication, without long-term current use of insulin (CMS/[facility]) from Last 3 Months Immunizations Name Administration [...] t he electric, gas, oil or water [employer] threatened to shut off services in your [...] Sign Reading Time Taken Comments Blood Pressure 162/88 09/22/2024 12:58 PM EST Pulse 82 09/22/2024 12:58 PM EST Temperature 36.5 ??C (97.7 ??F) 09/22/2024 12:[address] Respiratory Rate 17 09/22/2024 12:58 PM EST Oxygen Saturation 98% 09/22/2024 12:58 PM EST Inhaled Oxygen Concentration - - Weight 86.5 kg (190 lb 9.6 oz) 09/22/2024 12:58 PM EST Height 147.3 cm (4' 10 ) 06/06/2023 3:14 PM EST Body Mass Index 39.84 06/06/2023 3:14 PM EST Plan of Treatment Upcoming Encounters Date Type Department Care Team (Late st Contact Info) Description 10/26/2024 11:30 AM EDT Office Visit [facility] MED[facility] [address] [place] [address] Vivien Ohara MD [address] [place] [address] Health Maintenance Due Date Last Done Comments [...] season) 2024 Influenza Vaccine (#1) 2024 05/25/2013 SDOH Screening 09/23/2024 09/23/2023 Alcohol/Substance Use Screening 01/15/2025 01/16/2024 Diabetes: Hemoglobin A1C 03/22/2025 025, 05/13/2024, 01/16/2024, Additional history exists Lipid Panel 05/13/2025 05/13/2024, 05/04/2022 Tobacco Screening 09/22/2025 09/22/2024 Mammogram 01/06/2026 01/07/2024 Eye Exam 04/30/2026 04/30/2024, [...] Name Priority Date/Time Associated Diagnosis Comments POCT GLUCOSE Routine 09/22/2024 3:10 PM EST Type 2 diabetes mellitus with hyperlipidemia (CMS/HCC) ([facility]) POCT GLYCATED HEMOGLOBIN, TOTAL Routine 09/22/2024 3:10 PM EST Type 2 diabetes mellitus with hyperlipidemia (CMS/HCC) ([facility]) URINALYSIS, COMPLETE Routine 09/22/2024 1:52 PM EST Dysuria XR CHEST 2 VIEWS Routine 09/02/2024 2:48 PM EST Subacute cough POCT RAPID COVID ANTIGEN Routine 09/01/2024 6:09 PM EST Subacute cough POCT INFLUENZA B (ID NOW RAPID MOLECULAR) Routine 09/01/2024 6:09 PM EST Subacute cough POCT INFLUENZA A (ID NOW RAPID MOLECULAR) Routine 09/01/2024 6:09 PM EST Subacute cough RESPIRATORY VIRAL PANEL PCR Routine 09/01/2024 12:00 AM EST Subacute cough LIPID PANEL WITH REFLEX TO DIRECT LDL Routine 05/13/2024 11:00 AM EDT Type 2 diabetes mellitus without complication, without long-term current use of insulin ([facility]) Hypertension, unspecified type BI MAMMOGRAM SCREENING TOMOSYNTHESIS BILATERAL Routine 01/07/2024 12:55 PM EDT ALBUMIN, RANDOM URINE W/CREATININE Routine 05/01/2022 4:14 PM EDT from Last 3 Months or Most Recently Relevant to Health Maintenance Results * (ABNORMAL) POCT HGB A1C (09/22/2024 3:10 PM EST) Hemoglobin A1C 6.8(A) 4.0 - 6.0 % Blood 09/22/2024 3:10 PM EST [facility] POINT OF CARE TEST ENTER/EDIT OR DERABLES Final Result * POCT Glucose (09/22/2024 3:10 PM EST) Glucose Blood, POC 128 60 - 200 mg/dL Blood Capillary blood specimen / Unknown 09/22/2024 3:10 PM EST Oksana Ernst ANP POINT OF CARE TEST ENTER/EDIT OR DERABLES Final Result * (ABNORMAL) Urinalysis Complete (09/22/2024 1:52 PM EST) Color Urine Yellow [facility] Appearance Urine Clear [facility] PH 6.5 5.0 - 9.0 [facility] Glucose Urine UA Negative Negative mg/dL [facility] Urine Blood Small (1+)(A) Negative [facility] Specific [place] - Urine 1.010 1.005 - 1.025 [facility] Urine Protein Negative Neg-Trace mg/dL [facility] Urine Ketones Negative Negative mg/dL [facility] Nitrite Urine Negative Negative [facility] Leukocyte Esterase Urine Large (3+)(A) Negative [facility] RBC Urine 3-5(A) 0 - 2 /HPF [facility] Urine WBC >50(A) 0 - 5 /HPF [facility] Urine Squamous Epithelial Cell 11-20 0 - 2 /HPF [facility] Urine Bacteria 1+ None Seen [facility] Hyaline Casts, Urine 0-2 0 - 2 /LPF [facility] Urine (Urine, Random) 09/22/2024 1:52 PM EST 09/22/2024 4:10 PM EST Oksana Ernst ANP LAB URINE ORDERABLES Final Resul t Performing Organization Address City/State/[facility] Co de Phone Number [facility] [address] [place] [phone] * XR Chest 2 Views (09/02/2024 2:48 PM EST) Anatomical Region Laterality Modality Chest Radiographic Diana ging 09/02/2024 2:48 PM EST Narrative 09/02/2024 3:12 PM EST ?[facility] ?[address] ?[place] [address] ?XRay Report ? Signed ? Patient: Deleon,Lia ?MR#: [id number] ?? 910 ? : 1960 ?Acct:[id number] ? Age/Sex: 64 / F ?ADM Date: 09/02/24 ? Loc: HO.HHCX ? Attending Dr: Yuval Henry MD ? Ordering Physician: Yuval Henry MD ?? Date of Service: 09/02/24 ?? Procedure(s): XR chest 2V ?? Accession Number(s): [id number] ? cc: Yuval Henry MD ? EXAMINATION: ?? XR CHEST ? CLINICAL INFORMATION: ?? 3-week duration of cough ? COMPARISON: ?? April 25, 2024. ? TECHNIQUE: ?? 2 views of the chest were obtained. ? FINDINGS: ?? Pulmonary reticular pattern. No consolidation, pleural effusion or ?? pneumothorax. No hyperinflation. Cardiomediastinal silhouette ?? demonstrates calcified plaque Arctic arch. ?? Multilevel thoracic and upper lumbar spondylosis. Degenerative changes ?? in the shoulders. ? XR/XR chest 2V ?? IMPRESSION: ?? Chronic interstitial lung disease without gross acute airspace disease. ? Electronically signed by: ??Frankie Anderson MD ??09/02/2024 03:09 PM ?? EST RP ? Dictated By: ?Frankie Berry MD ? Signed By: ?<Electronically signed by Frankie Packer MD in OV> ? 09/02/24 1509 ? DD/ 1448 ? TD/TT: 09/02/24 1500 ? Rig Site Engineer: ? Procedure Note Ariela Arzola - 09/02/[address] [address] XRay Report Signed Patient: Nathanael Deleon#: [id number] 910 : 9Acct:[id number] Age/Sex: 64 / FADM Date: 09/02/24 Loc: HO.HHCX Attending Dr: Yuval Henry MD Ordering Physician: Yuval Henry MD Date of Service: 09/02/24 Procedure(s): XR chest 2V Accession Number(s): [id number] cc: Yuval Henry MD EXAMINATION: XR CHEST CLINICAL INFORMATION: 3-week duration of cough COMPARISON: April 25, 2024. TECHNIQUE: 2 views of the chest were obtained. FINDINGS: Pulmonary reticular pattern. No consolidation, pleural effusion or pneumothorax. No hyperinflation. Cardiomediastinal silhouette demonstrates calcified plaque Arctic arch. Multilevel thoracic and upper lumbar spondylosis. Degenerative changes in the shoulders. XR/XR chest 2V IMPRESSION: Chronic interstitial lung disease without gross acute airspace disease. Electronically signed by: Frankie Anderson MD 09/02/2024 03:09 PM EST RP Dictated By: Frankie Berry MD Signed By: <Electronically signed by Frankie Packer MDin OV> 09/02/24 1509 DD/ 1448 TD/TT: 09/02/24 1500 Rig Site Engineer: Yuval Henry MD IMG XR PROCEDURES Edited Result - Final * Influenza B (ID NOW Rapid Molecular) (09/01/2024 6:09 PM EST) Influenza B Negative Negative, Indeterminate [facility] Swab 09/01/2024 6:09 PM EST us Yuval Henry MD POINT OF CARE TEST ENTER/EDIT OR DERABLES Final Result Performing Organization Address [facility] Co de Phone Number [facility] [address] [place] [phone] * Influenza A (ID NOW Rapid Molecular) (09/01/2024 6:09 PM EST) Influenza A Negative Negative, Indeterminate [facility] Swab 09/01/2024 6:09 PM EST Yuval Henry MD POINT OF CARE TEST ENTER/EDIT OR DERABLES Final Result Performing Organization Address [facility]/ZIP Co de Phone Number [facility] [address] [place] [phone] * POCT Rapid COVID Ag (09/01/2024 6:09 PM EST) Pathologist [facility] Rapid COVID Ag Negative Swab 09/01/2024 6:09 PM EST Yuval Henry MD POINT OF CARE TEST ENTER/EDIT OR DERABLES Final Result * (ABNORMAL) Respiratory Viral Panel PCR (09/01/2024 12:00 AM EST) [facility] Adenovirus PCR Not Detected Not Detect. [facility] Bordetella pertussis PCR Not Detected Not Detect. [facility] Comment:Interpret results wi th caution. If B. pertussis isspecifically suspected, additional testing using analternate method is recommended. Bordetella parapertussis PCR Not Detected Not Detect. [facility] Chlamydia pneumoniae PCR Not Detected Not Detect. [facility] Coronavirus 229E PCR Not Detected Not Detect. [facility] Coronavirus HKU1 PCR Not Detected Not Detect. [facility] Coronavirus NL63 PCR Not Detected Not Detect. [facility] Coronavirus OC43 PCR Not Detected Not Detect. [facility] SARS-CoV-2 PCR Not Detected Not Detect. [facility] Comment:SARS-CoV-2 not detec bridger by real-time RT-PCR.Note: If clinical suspicion for Sars-CoV-2 is high, continueto maintain precautions and consider repeat testing.Test results should be interpreted in the context ofclinical findings and other laboratory data.Rare polymorphisms exist that could lead to false-negativeor false-positive results. If results do not match theclinical findings, additional testing should be considered.Results reported to [facility].This test has been authorized by the FDA under the EmergencyUse Authorization (EUA) for use by authorized laboratories. Influenza A PCR Detected(A) Not Detect. [facility] Influenza B PCR Not Detected Not Detect. [facility] Human metapneumovirus PCR Not Detected Not Detect. [facility] Rhino/Enterovirus PCR Not Detected Not Detect. [facility] Mycoplasma pneumoniae PCR Not Detected Not Detect. [facility] Parainfluenza 1 PCR Not Detected Not Detect. [facility] Parainfluenza 2 PCR Not Detected Not Detect. [facility] Parainfluenza 3 PCR Not Detected Not Detect. [facility] Parainfluenza 4 PCR Not Detected Not Detect. [facility] RSV PCR Not Detected Not Detect. [facility] Resp Panel NA Note See Note H [facility] Comment:All results must be correlated with clinical findings.Negative results should not be used as the sole basis fordiagnosis, treatment, or other management decisions.A negative result does not exclude the possibility of viralor bacterial infection. Negative results may occur from thepresence of sequence variants in the region targeted by theassay, the presence of inhibitors, an infection caused by anorganism not detected by the panel, or lower respiratorytract infections that are not detected by a nasopharyngealswab specimen. Test results may also be affected byconcurrent antiviral/antibacterial therapy or levels oforganism in the specimen that are below the limit ofdetection for this test.This assay is performed by Multiplexed PCR, utilizing [employer] Film Array. 09/01/2024 09/01/2024 us Yuval Henry MD LAB BLOOD ORDERABLES Final Resul t [facility] [address] [place] [phone] * (ABNORMAL) Lipid Panel with Reflex to Direct LDL (05/13/2024 11:00 AM EDT) Triglycerides 200(H) <150 mg/dL [facility] Comment:Desirable Triglyceri de: less than 150 mg/dLBorderline High Triglyceride 150-199 mg/dLHigh Triglyceride: 200-499 mg/dLVery High Triglyceride: greater than or equal to 5OO mg/dL Cholesterol 180 <200 mg/dL [facility] Comment:Desirable Cholestero l: less than 200 mg/dLBorderline High Cholesterol: 200-239 mg/dLHigh Cholesterol: greater than 239 mg/dL LDL Cholesterol Calculated 95 <100 mg/dL [facility] Comment:Desirable LDL: less than 100 mg/dLNear Optimal/Above Optimal LDL: 110- 129 mg/dLBorderline High LDL: 130-159 mg/dLHigh LDL: 160-189 mg/dLVery High LDL: greater than or equal to 190 mg/dL HDL Cholesterol 45 >40 mg/dL [facility] Comment:Desirable HDL: great er than 40 mg/dL Note: This HDL assay may give artificially low results in patients with liver disease. Blood 05/13/2024 11:0 0 AM EDT 05/13/2024 11:37 AM EDT us Vivien Ohara MD LAB BLOOD ORDERABLES Final Resul t [facility] [address] [place] [phone] * BI Mammogram Screening Tomosynthesis Bilateral (01/07/2024 12:55 PM EDT) Anatomical Region Laterality Modality Breast Bilateral Mammography 01/07/2024 12:5 5 PM EDT Narrative 02/06/2024 9:41 AM EDT ? [facility] ? [address] ?[place] [address] ? Mammography Report ? Signed ? Patient: Deleon,Lia ?MR#: [id number] ?? 910 ? : 1960 ?Acct:[id number] ? Age/Sex: 63 / F ?ADM Date: //24 ? Loc: HO.MAMMO ? Attending Dr: Vivien Ohara MD ? Ordering Physician: Vivien Ohara MD ?Results: 1Negative ? Date of Service: 01/07/24 ?Follow Up: 1 Year From Orig ?? inal Mammogram ? Procedure(s): MM tomosynthesis screening BI ?? Accession Number(s): [id number] ? cc: Vivien Ohara MD ? EXAMINATION: [...] 0937 ? DD/ 1255 ? TD/TT: ? Rig Site Engineer: ? Procedure Note Ariela Arzola - 02/06/2024 [facility] [address] [place] [address] Dr. Stephen, ALAN [address] Mammography Report Signed Patient: Lia DeleonMR#: [id number] 910 : 9Acct:[id number] Age/Sex: 63 / FADM Date: 01/07/24 Loc: BECK Attending Dr: Vivien Ohara MD Ordering Physician: Vivien Ohara MDResults: 1Negative Date of Service: 01/07/24Follow Up: 1 Year From Orig inal Mammogram Procedure(s): MM tomosynthesis screening BI Accession Number(s): [id number] cc: Vivien Ohara MD EXAMINATION: MM SCREENING [...] in OV> 02/06/24 0937 DD/ 1255 TD/TT: Rig Site Engineer: us Vivien Ohara MD IMG BI PROCEDURES Final Result * (ABNORMAL) ALBUMIN, [...] LABS 05/01/2022 4:14 PM EDT Kandi Vanessa SENIOR RESTAURANT MANAGER LAB URINE ORDERABLES Final Result [facility] LABS from Last 3 Months or Most Recently Relevant to Health Maintenance Insurance [facility] Care Teams Coil Spring Assembler Relationship Specialty Start Date End Date Vivien Ohara MD [address] [place] [address] [place] [address] PCP - General Family Medicine 08/19/23
--- OUTSIDE RECORDS SUMMARY | 2024-09-22 19:40 | XMS_ITS | Encounter Summary ---
Author Organization [employer] Address 75 [facility] [address] [place] [address] Care Team Providers Care Java Application Developer Name Role Phone Vivien Ohara MD Primary Care Provider Reason for Referral * Consultation (Routine) - Authorized Specialty Diagnoses / Procedures Referred By Contac t Referred To Contact Pulmonary Disease Diagnoses Chronic cough Interstitial lung disease (CMS/HCC) Yuval Henry MD [address] [place] [address] Phone: tel: fax: [facility] [place] [address] [place] [address] Phone: tel: fax: Referral ID Status Reason Start Date Expiration Date Visits Requested Visits Authorized [id number] Authorized Specialty Services Required 09/03/2024 09/03/2025 1 1 Encounter Details Date Type Department Care Team (Late st Contact Info) Description 09/03/2024 Telephone [facility] [address] [place], [place] [phone] Yuval Henry MD [address] [place], [place] [phone] Social History Tobacco Use Types Packs/Day Years [...] encounter Miscellaneous Notes * Telephone Encounter - Yuval Henry MD - 09/03/2024 10:26 AM EST Diagnoses and all orders for this visit: Chronic cough (Primary) - Referral to Pulmonology; Future Interstitial lung disease (CMS/HCC) - Referral to Pulmonology; Future documented in this encounter Plan of Treatment Upcoming Encounters Date Type Department Care Team (Late st Contact Info) Description 10/26/2024 11:30 AM EDT Office Visit [facility] [address] [place] [address] Vivien Ohara MD [address] [place] [address] Scheduled Referrals Name Type Priority Associated Diagnoses Order Schedule Referral to Pulmonology Outpatient Referral Routine Chronic cough Interstitial lung disease (CMS/HCC) Expected: 09/03/2024 (Approximate), Expires: 09/03/2025 documented as of this encounter Visit Diagnoses Diagnosis Chronic cough- Primary Cough Interstitial lung disease (CMS/HCC) Postinflammatory pulmonary fibrosis documented in this encounter Additional Health Concerns Assessment Noted Time PHQ-9 Depression Total Score: 0 03/14/20 23 1:40 PM EDT documented as of this encounter Care Teams Java Application Developer Relationship Specialty Start Date End Date Vivien Ohara MD [address] [place] [phone] PCP - General Family Medicine 08/19/23 documented as of this encounter
--- OUTSIDE RECORDS SUMMARY | 2024-09-22 19:40 | XMS_ITS | Encounter Summary ---
Author Organization [employer] Address 75 [facility] 7 [place] [address] Care Team Providers Care Mystery Shopper Name Role Phone Vivien Ohara MD Primary Care Provider [phone] Reason for Visit * Reason Comments Cough Encounter Details Date Type Department Care Team ([facility] Contact Info) Description 09/01/2024 6:00 PM EST Office Visit [facility] [address] [place], [place] [phone] Yuval Henry MD [address] [place], [place] [phone] Subacute cough Social History Tobacco Use Types [...] day for 4 days. Patient presents to [facility] due to 3-week duration of URI symptoms [...] Upcoming Encounters Date Type Department Care Team ([facility] st Contact Info) Description 10/26/2024 11:30 AM EDT Office Visit [facility] [address] [place] [phone] Vivien Ohara MD [address] [place] [address] [phone] documented as of this encounter Procedures Procedure Name Priority Date/Time Associated Diagnosis Comments XR CHEST 2 VIEWS Routine 09/02/2024 2:48 PM EST Subacute cough POCT INFLUENZA B (ID NOW RAPID MOLECULAR) Routine 09/01/2024 6:09 PM EST Subacute cough POCT INFLUENZA A (ID NOW RAPID MOLECULAR) Routine 09/01/2024 6:09 PM EST Subacute cough POCT RAPID COVID ANTIGEN Routine 09/01/2024 6:09 PM EST Subacute cough RESPIRATORY VIRAL PANEL PCR Routine 09/01/2024 12:00 AM EST Subacute cough documented in this encounter Results * XR Chest 2 Views (09/02/2024 2:48 PM EST) Anatomical Region Laterality Modality Chest Radiographic Diana ging 09/02/2024 2:48 PM EST Narrative 09/02/2024 3:12 PM EST ?[facility] ?[address] ?[place] [address] ?XRay Report ? Signed ? Patient: Deleon,Lia ?MR#: [id number] ?? 910 ? : 1960 ?Acct:[id number] ? Age/Sex: 64 / F ?ADM Date: 09/02/24 ? Loc: HO.HHCX ? Attending Dr: Yuval Henry MD ? Ordering Physician: Yuval Henry MD ?? Date of Service: 09/02/24 ?? Procedure(s): XR chest 2V ?? Accession Number(s): [id number] ? cc: Yuval Henry MD ? EXAMINATION: [...] DD/ 1448 ? TD/TT: 09/02/24 1500 ? Engineering Drafter: ? Procedure Note Dariusz, Image - 09/02/2024 [facility] [address] [place] [address] XRay Report Signed Patient: Nathanael Deleon#: [id number] : 9Acct:[id number] Age/Sex: 64 / FADM Date: 09/02/24 Loc: HO.HHCX Attending Dr: Yuval Henry MD Ordering Physician: Yuval Henry MD Date of Service: 09/02/24 Procedure(s): XR chest 2V Accession Number(s): [id number] cc: Yuval Henry MD EXAMINATION: XR CHEST [...] 09/02/24 1509 DD/ 1448 TD/TT: 09/02/24 1500 Engineering Drafter: Yuval Henry MD IMG XR PROCEDURES Edited Result - Final * POCT Rapid COVID Ag (09/01/2024 6:09 PM EST) Rapid COVID Ag Negative Swab 09/01/2024 6:09 PM EST Yuval Henry MD POINT OF CARE TEST ENTER/EDIT OR DERABLES Final Result * Influenza B (ID NOW Rapid Molecular) (09/01/2024 6:09 PM EST) Influenza B Negative Negative, Indeterminate [facility] Swab 09/01/2024 6:09 PM EST us Yuval Henry MD POINT OF CARE TEST ENTER/EDIT OR DERABLES Final Result [facility] [address] [place] [phone] * Influenza A (ID NOW Rapid Molecular) (09/01/2024 6:09 PM EST) Influenza A Negative Negative, Indeterminate [facility] Swab 09/01/2024 6:09 PM EST Yuval Henry MD POINT OF CARE TEST ENTER/EDIT OR DERABLES Final Result [facility] [address] [place] [phone] * (ABNORMAL) Respiratory Viral Panel PCR (09/01/2024 12:00 AM EST) Adenovirus PCR Not Detected Not Detect. [facility] Bordetella pertussis PCR Not Detected Not Detect. [facility] Comment:Interpret results wi th caution. If B. pertussis isspecifically suspected, additional testing using analternate method is recommended. Bordetella parapertussis PCR Not Detected Not Detect. [facility] Chlamydia pneumoniae PCR Not Detected Not Detect. [facility] Coronavirus 229E PCR Not Detected Not Detect. [facility] Coronavirus HKU1 PCR Not Detected Not Detect. [facility] Coronavirus NL63 PCR Not Detected Not Detect. [facility] Coronavirus OC43 PCR Not Detected Not Detect. [facility] SARS-CoV-2 PCR Not Detected Not Detect. [facility] Comment:SARS-CoV-2 not detec bridger by real-time RT-PCR.Note: If clinical suspicion for Sars-CoV-2 is high, continueto maintain precautions and consider repeat testing.Test results should be interpreted in the context ofclinical findings and other laboratory data.Rare polymorphisms exist that could lead to false-negativeor false-positive results. If results do not match theclinical findings, additional testing should be considered.Results reported to [facility].This test has been authorized by the FDA under the EmergencyUse Authorization (EUA) for use by authorized laboratories. Influenza A PCR Detected(A) Not Detect. [facility] Influenza B PCR Not Detected Not Detect. [facility] Human metapneumovirus PCR Not Detected Not Detect. [facility] Rhino/Enterovirus PCR Not Detected Not Detect. [facility] Mycoplasma pneumoniae PCR Not Detected Not Detect. [facility] Parainfluenza 1 PCR Not Detected Not Detect. [facility] Parainfluenza 2 PCR Not Detected Not Detect. [facility] Parainfluenza 3 PCR Not Detected Not Detect. [facility] Parainfluenza 4 PCR Not Detected Not Detect. [facility] RSV PCR Not Detected Not Detect. [facility] Resp Panel NA Note See Note H [facility] Comment:All results must be correlated [...] assay is performed by Multiplexed PCR, utilizing [employer] Film Array. 09/01/2024 09/01/2024 us Yuval Henry MD LAB BLOOD ORDERABLES Final Resul t [facility] [address] [place] [phone] documented in this encounter Visit Diagnoses Diagnosis Subacute cough documented in this encounter Additional Health Concerns Assessment Noted Time PHQ-9 Depression Total Score: 0 03/14/20 23 1:40 PM EDT documented as of this encounter Care Teams Mystery Shopper Relationship Specialty Start Date End Date Vivien Ohara MD [address] [place] [phone] PCP - General Family Medicine 08/19/23 documented as of this encounter
--- OUTSIDE RECORDS SUMMARY | 2024-09-22 19:40 | XMS_ITS | Encounter Summary ---
Author Organization [employer] Address 75 [facility] 7 [place] [address] Care Team Providers Care Dry End Tester Name Role Phone Kandi Vanessa Ciera NORTONP Primary Care Provider [phone] Lakeisha Yadav NP Primary Care Provider [phone] Vivien Ohara MD Primary Care Provider [phone] Reason for Visit * Reason Comments Med Refill Encounter Details Date Type Department Care Team (Late st Contact Info) Description 08/14/2022 Refill [facility] [address] [place], [place] [phone] Hailey Gomez MD [address] [place] [address] Cough in adult Social History Tobacco Use [...] Description 10/26/2024 11:30 AM EDT Office Visit [facility] [address] [place] [address] Vivien Ohara MD [address] [place] [phone] documented as of this encounter Visit Diagnoses Diagnosis Cough in adult documented in this encounter Care Teams Dry End Tester Relationship Specialty Start Date End Date Kandi Vanessa FNP PCP - General Family Medicine 03/07/22 05/02/23 Lakeisha Yadav NP [address] [place] [phone] PCP - General Family Medicine 05/03/23 08/18/23 Vivien Ohara MD [address] [place] [phone] PCP - General Family Medicine 08/19/23 documented as of this encounter
--- OUTSIDE RECORDS SUMMARY | 2024-09-22 19:40 | XMS_ITS | Encounter Summary ---
Author Organization [employer] Address 75 [facility] 7 [place] [address] Care Team Providers Care Building Energy Consultant Name Role Phone Vivien Ohara MD Primary Care Provider [phone] Reason for Visit * Reason Comments Med Refill Encounter Details Date Type Department Care Team ([facility] st Contact Info) Description 05/14/2024 Refill [facility] [address] [place] [address] Vivien Ohara MD [address] [place] [address] Mild intermittent asthma with acute exacerbation Social [...] Description 10/26/2024 11:30 AM EDT Office Visit [facility] [address] [place] [phone] Vivien Ohara MD [address] [place] [phone] documented as of this encounter Visit Diagnoses Diagnosis Mild intermittent asthma with acute exacerbation documented in this encounter Additional Health Concerns Assessment Noted Time PHQ-9 Depression Total Score: 0 03/14/20 23 1:40 PM EDT documented as of this encounter Care Teams Building Energy Consultant Relationship Specialty Start Date End Date Vivien Ohara MD [address] [place] [address] [phone] PCP - General Family Medicine 08/19/23 documented as of this encounter
--- OUTSIDE RECORDS SUMMARY | 2024-09-22 19:40 | XMS_ITS | Encounter Summary ---
Author Organization [employer] Address 75 [facility] 7 [place] [address] Care Team Providers Care Avionics Technician Name Role Phone Vivien Ohara MD Primary Care Provider Reason for Visit * Reason Comments GERD Urinary Frequency Encounter Details Date Type Department Care Team (Latest Contact Info) Description 09/22/2024 1:20 PM EST Office Visit [facility] [address] [place] [address] Oksana Ernst ANP [address] [place] [address] Dysuria (Primary Dx); Gastroesophageal reflux disease, unspecified whether esophagitis present; Vaginal itching; Type 2 diabetes mellitus with hyperlipidemia ([facility]) ([facility]) Social History Tobacco Use Types Packs/Day Years [...] 9.6 oz) 09/22/2024 12:58 PM EST Height - - Body Mass Index 39.84 06/06/2023 3:14 PM EST documented in this encounter Patient Instructions * Patient Instructions* LYNDA Davenport - 09/22/2024 1:20 PM EST Images from the original note were not included. The ideal blood pressure would be < 130/80 ( normal is < 120/80). For your blood pressure, it is recommended to eat a low salt diet, get regular exercise, check your blood pressure at home, and take medications as prescribed. If you smoke, please decrease or quit. Call clinic if blood pressure is frequently >150/90. Go to ED/call 911 if > 170/100 and having symptoms that could include headache, visual changes, chest pain, altered mental status or shortness of breath. documented in this encounter Progress Notes * LYNDA Davenport - 09/22/2024 1:20 PM EST Lia Deleon is 64 y.o. patient here today for sick visit. HPI PMH T2DM w/ HTN, HLD, GERD, DONA, hypothyroidism, asthma Allergic to Bactrim and PCN Here today w/ GERD sx, chronic, was told in past to take PPI for life but has not been doing so. Has rx for omeprazole 40mg from PCP last picked up and confirmed w/ pharmacy 08/20/24. Advised her to take. Also w/ urinary frequency for unk duration, a long time , and dry mouth. Reports BG yesterday was 200. Also a little vaginal itching. HTN: Reports she takes lisinopril 20 mg. Reviewed with patient this has been discontinued off her med list for quite some time and that her blood pressure medicine is valsartan. She reports that she does take medication as prescribed and is picking up blood pressure medicine today. Scheduled PCP visit for next mo to catch up on chronic conditions. Lab Results Component Value Date HGBA1C 7.2 (A) 05/13/2024 HGBA1C 7.1 (A) 01/16/2024 HGBA1C 6.8 (A) 10/01/2023 A1c here POC 6.8, BG 128. Non-smoker Review of Systems Constitutional: Negative for chills and fever. HENT: Negative for sore throat. Respiratory: Negative for cough and shortness of breath. Cardiovascular: Negative for chest pain. Gastrointestinal: Negative for constipation and diarrhea. Endocrine: Negative for polydipsia, polyphagia and polyuria. Genitourinary: Positive for dysuria. Negative for urgency and vaginal discharge. +vaginal itch, urinary frequency Patient Active Problem List Diagnosis Lichen sclerosus Allergic rhinitis Asthma Cervical polyp Dyslipidemia Hypertension Multinodular goiter Obesity Obstructive sleep apnea syndrome Osteoarthritis Fibromyalgia Post covid-19 condition, unspecified Multilevel degenerative disc disease Type 2 diabetes mellitus (CMS/HCC) Numbness of right foot Hypothyroidism Gastroesophageal reflux disease Sensorineural hearing loss (SNHL) of both ears Osteopenia Vitamin D deficiency Mixed stress and urge urinary incontinence Objective BP (!) 162/88 (BP Location: Right arm, Patient Position: Sitting, BP Cuff Size: Large adult) Pulse 82 Temp 97.7 ??F (36.5 ??C) (Temporal) Resp 17 Wt 190 lb 9.6 oz (86.5 kg) SpO2 98% BMI 39.84 kg/m?? BP on repeat 163/91 Physical Exam Constitutional: General: She is not in acute distress. Appearance: Normal appearance. She is not ill-appearing. HENT: Head: Normocephalic and atraumatic. Eyes: Extraocular Movements: Extraocular movements intact. Pulmonary: Effort: Pulmonary effort is normal. No accessory muscle usage or respiratory distress. Neurological: Mental Status: She is alert and oriented to person, place, and time. Psychiatric: Mood and Affect: Mood normal. Behavior: Behavior normal. Lia was seen today for gerd and urinary frequency. Diagnoses and all orders for this visit: Dysuria (Primary) Hydrate well. Send out urine for UA/cx. Will tx pending results. - Culture, Urine, Routine - Urinalysis Complete Gastroesophageal reflux disease, unspecified whether esophagitis present Take ppi as rx'd follow-up w/ PCP as planned Vaginal itching Check: - Bacterial Vaginosis Panel Tx pending results. No greg discharge. Type 2 diabetes mellitus with hyperlipidemia and hypertension (CMS/HCC) ([facility]) A1c < 7.0. Advised pt to hydrate well, cont meds as rx'd and follow-up w/ PCP. Blood pressure remains elevated on repeat. I am not confident that patient is taking medication as prescribed as she was not sure which medicine was her blood pressure medicine or what her medicines corresponded to particular conditions. We went through her med list together and I wrote the indication next to the medications. Reinforced that valsartan is her blood pressure medicine and she is to take this daily. Gave blood pressure log to record onto and bring to PCP visit. - POCT HGB A1C - POCT Glucose documented in this encounter Plan of Treatment Upcoming Encounters Date Type Department Care Team (Late st Contact Info) Description 10/26/2024 11:30 AM EDT Office Visit [facility] [address] [place] [address] Vivien Ohara MD [address] [place] [address] Scheduled Orders Name Type Priority Associated Diagnoses Orde r Schedule Bacterial Vaginosis Panel Microbiology Routine Vaginal itching Ordered: 09/22/2024 Culture, Urine, Routine Microbiology Routine Dysuria Ordered: 09/22/2024 documented as of this encounter Procedures Procedure Name Priority Date/Time Associated Diagnosis Comments POCT GLYCATED HEMOGLOBIN, TOTAL Routine 09/22/2024 3:10 PM EST Type 2 diabetes mellitus with hyperlipidemia (CMS/HCC) ([facility]) POCT GLUCOSE Routine 09/22/2024 3:10 PM EST Type 2 diabetes mellitus with hyperlipidemia (CMS/HCC) ([facility]) URINALYSIS, COMPLETE Routine 09/22/2024 1:52 PM EST Dysuria documented in this encounter Results * POCT Glucose (09/22/2024 3:10 PM EST) Glucose Blood, POC 128 60 - 200 mg/dL Blood Capillary blood specimen / Unknown 09/22/2024 3:10 PM EST us Oksana HOWELL POINT OF CARE TEST ENTER/EDIT OR DERABLES Final Result * (ABNORMAL) POCT HGB A1C (09/22/2024 3:10 PM EST) Hemoglobin A1C 6.8(A) 4.0 - 6.0 % Blood 09/22/2024 3:10 PM EST us Oksana HOWELL POINT OF CARE TEST ENTER/EDIT OR DERABLES Final Result * (ABNORMAL) Urinalysis Complete (09/22/2024 1:52 PM EST) Color Urine Yellow [facility] Appearance Urine Clear [facility] PH 6.5 5.0 - 9.0 [facility] Glucose Urine UA Negative Negative mg/dL [facility] Urine Blood Small (1+)(A) Negative [facility] Specific [place] - Urine 1.010 1.005 - 1.025 [facility] Urine Protein Negative Neg-Trace mg/dL [facility] Urine Ketones Negative Negative mg/dL [facility] Nitrite Urine Negative Negative [facility] Leukocyte Esterase Urine Large (3+)(A) Negative [facility] RBC Urine 3-5(A) 0 - 2 /HPF [facility] Urine WBC >50(A) 0 - 5 /HPF [facility] Urine Squamous Epithelial Cell 11-20 0 - 2 /HPF [facility] Urine Bacteria 1+ None Seen [facility] Hyaline Casts, Urine 0-2 0 - 2 /LPF [facility] Urine (Urine, Random) 09/22/2024 1:52 PM EST 09/22/2024 4:10 PM EST Oksana Ernst [facility] URINE ORDERABLES Final Resul t Performing Organization Address City/State/[facility] Co de Phone Number [facility] [address] [place] [phone] documented in this encounter Visit Diagnoses Diagnosis Dysuria- Primary Gastroesophageal reflux disease, unspecified whether esophagitis present Vaginal itching Pruritus of genital organs Type 2 diabetes mellitus with hyperlipidemia (CMS/HCC) ([facility]/HCC) documented in this encounter Additional Health Concerns Assessment Noted Time PHQ-9 Depression Total Score: 0 03/14/20 23 1:40 PM EDT documented as of this encounter Care Teams Avionics Technician Relationship Specialty Start Date End Date Vivien Ohara MD [address] [place] [phone] PCP - General Family Medicine 08/19/23 documented as of this encounter
--- OUTSIDE RECORDS SUMMARY | 2024-09-22 19:40 | XMS_ITS | Encounter Summary ---
Author Organization [employer] Address [address] [place] [address] 7 [place] [address] Care Team Providers Care Wound/Ostomy Clinical Nurse Specialist Name Role Phone Vivien Ohara MD Primary Care Provider [phone] Reason for Referral * Consultation (Routine) - Pending Review Specialty Diagnoses / Procedures Referred By Contac t Referred To Contact Pharmacy Diagnoses Type 2 diabetes mellitus without complication, without long-term current use of insulin (CMS/HCC) Hypertension, unspecified type Vivien Ohara MD [address] [place] [address] Phone: tel: fax: Referral ID Status Reason Start Date Expiration Date Visits Requested Visits Authorized [id number] Pending Review Continuity of Care 04/29/2024 04/29/2025 6 6 Encounter Details Date Type Department Care Team (Late st Contact Info) Description 04/29/2024 Orders Only [facility] [address] [place] [address] Vivien Ohara MD [address] [place], [place] [phone] Type 2 diabetes mellitus without complication, without [...] Description 10/26/2024 11:30 AM EDT Office Visit [facility] [address] [place] [address] Vivien Ohara MD [address] [place], [place] [phone] Scheduled Referrals Name Type Priority Associated Diagnoses Orde r Schedule Referral to Pharmacy MTM Outpatient Referral Routine Type 2 diabetes mellitus without complication, without long-term current use of insulin ([facility]) Hypertension, unspecified type Ordered: 04/29/2024 documented as of this encounter Visit Diagnoses Diagnosis Type 2 diabetes mellitus without complication, without long-term current use of insulin ([facility])- Primary Hypertension, unspecified type documented in this encounter Additional Health Concerns Assessment Noted Time PHQ-9 Depression Total Score: 0 03/14/20 23 1:40 PM EDT documented as of this encounter Care Teams Wound/Ostomy Clinical Nurse Specialist Relationship Specialty Start Date End Date Vivien Ohara MD [address] [place] [phone] PCP - General Family Medicine 08/19/23 documented as of this encounter
--- OUTSIDE RECORDS SUMMARY | 2024-09-22 19:40 | XMS_ITS | Encounter Summary ---
Author Organization [employer] Address [address] [facility] 7 [place] [address] Care Team Providers Care Lipstick Molder Name Role Phone Vivien Ohara MD Primary Care Provider [phone] Reason for Visit * Reason Onset Date Comments Med Refill 03/10/2024 Encounter Details Date Type Department Care Team (Late st Contact Info) Description 03/10/2024 Refill [facility] [address] [place] [address] Vivien Ohara MD 230 [place] [address] Primary osteoarthritis involving multiple joints Social History [...] Description 10/26/2024 11:30 AM EDT Office Visit [facility] MEDICINE [address] [place] [address] Vivien Ohara MD [address] [place] [address] documented as of this encounter Visit Diagnoses Diagnosis Primary osteoarthritis involving multiple joints documented in this encounter Additional Health Concerns Assessment Noted Time PHQ-9 Depression Total Score: 0 03/14/20 23 1:40 PM EDT documented as of this encounter Care Teams Lipstick Molder Relationship Specialty Start Date End Date Vivien Ohara MD [address] [place] [address] PCP - General Family Medicine 08/19/23 documented as of this encounter
--- OUTSIDE RECORDS SUMMARY | 2024-09-22 19:40 | XMS_ITS | Encounter Summary ---
Author Organization [employer] Address 75 [facility] 7t [place] [address] Care Team Providers Care Saddle Stitching Machine Operator Name Role Phone Vivien Ohara MD Primary Care Provider [phone] Reason for Visit * Reason Comments Med Refill Encounter Details Date Type Department Care Team ([facility] st Contact Info) Description 09/09/2024 Refill [facility] 230 [place], [place] [phone] Oksana Ernst, LYNDA 230 [place] [address] Primary hypertension Social History Tobacco Use Types [...] Description 10/26/2024 11:30 AM EDT Office Visit [facility] MEDICINE [address] [place] [address] Vivien Ohara MD 230 [place] [address] documented as of this encounter Visit Diagnoses Diagnosis Primary hypertension Unspecified essential hypertension documented in this encounter Additional Health Concerns Assessment Noted Time PHQ-9 Depression Total Score: 0 03/14/20 23 1:40 PM EDT documented as of this encounter Care Teams Saddle Stitching Machine Operator Relationship Specialty Start Date End Date Vivien Ohara MD [address] [place] [address] [phone] PCP - General Family Medicine 08/19/23 documented as of this encounter
--- OUTSIDE RECORDS SUMMARY | 2024-09-22 19:40 | XMS_ITS | Encounter Summary ---
Author Organization [employer] Address 75 [facility] 7 [place] [address] Care Team Providers Care Obstetrics Tech Name Role Phone Vivien Ohara MD Primary Care Provider [phone] Reason for Visit * Reason Comments Med Refill Encounter Details Date Type Department Care Team ([facility] st Contact Info) Description 05/04/2024 Refill [facility] MED[facility]INE 230 [place] [address] Vivien Ohara MD 230 [place] [address] Social History Tobacco Use Types Packs/Day Years [...] Description 10/26/2024 11:30 AM EDT Office Visit [facility] [address] [place] [address] Vivien Ohara MD [address] [place] [address] documented as of this encounter Visit Diagnoses Not on filedocumented in this encounter Additional Health Concerns Assessment Noted Time PHQ-9 Depression Total Score: 0 03/14/20 23 1:40 PM EDT documented as of this encounter Care Teams Obstetrics Tech Relationship Specialty Start Date End Date Vivien Ohara MD [address] [place] [phone] PCP - General Family Medicine 08/19/23 documented as of this encounter
[2024-09-23 13:50] LABS: Bacterial Vaginosis PCR NEGATIVE (Negative); Candida Group PCR NOT DETECTED (Not Detect); Candida glab krusei PCR NOT DETECTED (Not Detect); Trichomonas vaginalis PCR NOT DETECTED (Not Detect)
== END 2024-09-22 16:10 | disposition home or self-care (01) ==
LOC: HO.HHCLNP 16:09
PROVIDERS: Visit Provider Nurse Practitioner Primary Care
DX: N89.8 Other specified noninflammatory disorders of vagina (principal); R30.0 Dysuria
CPT/HCPCS: 81001; 81515; 87086

== ENCOUNTER 2024-10-15 11:35 | Outpatient (AMB) | payer OTHER, SELFPAY ==
[2024-10-15 11:44] VITALS: BP 120/78; PULSE 97; O2SAT 97; BMI 39.9
--- NOTE | 2024-10-15 11:44 | A.OFFVIS_ITS ---
Vital Signs 10/15/24 11:44 Height 4 ft 10 in Weight 190 lb 11.198 oz BMI 39.9 BP 120/78 Blood Pressure Location Lt brachial Position Sitting Pulse 97 Pulse Source Pulse Oximeter Pulse Oximetry (%) 97 Oxygen Delivery Method Room Air Intake Visit Reasons: chronic cough/ILD Intake Note: pt is here as a new patient for a cough that is better, but chest x-ray showed ILD, and pt states she does have daytime fatigue, gasping and snoring. Farm Or Ranch Animal Caretaker Required: No Allergies penicillin V Allergy (Unknown, Verified 10/15/24 12:37) Anaphylaxis Penicillins Allergy (Unknown, Verified 10/15/24 12:37) Rash Sulfa (Sulfonamide Antibiotics) Allergy (Unknown, Verified 10/15/24 12:37) Anaphylaxis sulfamethoxazole Allergy (Unknown, Verified 10/15/24 12:37) rash trimethoprim Allergy (Unknown, Verified 10/15/24 12:37) rash Medication List - Last Reconciled 10/15/24 by Randolph Awad MD albuterol sulfate mg inhalation QID PRN aspirin 81 mg PO QAM cetirizine 10 mg PO DAILY PRN cranberry extract 425 mg PO BID cyclobenzaprine 5 mg PO TID PRN dapagliflozin propanediol (Farxiga) 10 mg PO DAILY epinephrine IM fenofibrate 54 mg PO DAILY fluticasone furoate 100 mcg/actuation (Arnuity Ellipta) inhalation DAILY fluticasone propionate 50 mcg/actuation intranasal gabapentin 100 mg PO TID PRN levothyroxine 50 mcg PO DAILY lidocaine 5% 1 patch topical DAILY PRN omeprazole 40 mg PO DAILY semaglutide (Ozempic) mg subcut tolterodine ER 4 mg PO DAILY valsartan 160 mg PO DAILY Do you need a note to return to daycare/school/sports/work: No HPI HPI chronic cough/ILD: Details: 64 YEARS OLD FEMALE IS BEING SEEN FOR THE 1ST TIME, FOR PULMONARY AND SLEEP EVALUATION. 1- SHE HAS HISTORY OF SHORTNESS OF BREATH ON WALKING UP HILL OR FAST AND ALSO WITH MILD INTERMITTENT COUGH. SHE IS BEING TREATED FOR MILD CASE OF BRONCHIAL ASTHMA AND CURRENTLY ON ARNUITY-101 INHALATION DAILY AND ALBUTEROL P.R.N.. SHE HAS ONLY INTERMITTENT SHORTNESS OF BREATH AT REST BUT MOSTLY SHE DOES GET SHORT OF BREATH WHEN SHE WALKS UP HILL OR CLIMBS STAIRS. SHE KNOWS THAT THIS MAY ALSO BE RELATED TO HER OBESITY. SHE HAS HAD NO ACUTE RESPIRATORY INFECTION. A RECENT CHEST X-RAY INDICATES THAT SHE MAY HAVE SOME PERIPHERAL FIBROTIC CHANGES AND RETICULATION, RAISING CONCERN FOR INTERSTITIAL LUNG DISEASE. 2- SHE HAS BEEN GROSSLY OBESE FOR MANY YEARS, SHE HAS HISTORY OF LOUD SNORING AT NIGHT. SHE ALSO WAKES UP AT NIGHT TO USE ALBUTEROL BUT THIS MAY BE DUE TO APNEAS. SHE HAS HAD SLEEP STUDY IN 2022 .. HERE IN SLEEP [facility] OF [facility], SHE WAS FOUND TO HAVE OBSTRUCTIVE SLEEP APNEA AND AFTER CPAP TITRATION STARTED ON THE CPAP. HOWEVER SHE DID NOT UNDERSTAND MUCH AND DID NOT USE THE MACHINE FOR MORE THAN 4 WEEKS, HENCE THE CPAP MACHINE WAS TAKEN AWAY. STILL HAS FREQUENT SNORING AT NIGHT AND AWAKENINGS, SHE REMAINS SOMEWHAT TIRED AND SLEEPY DURING THE DAYTIME. 3- SHE HAS BEEN GROSSLY OBESE THROUGHOUT HER ADULT LIFE, CURRENTLY TRYING TO LOSE WEIGHT, HAS BEEN STARTED ON OZEMPIC INJECTION THERAPY. SHE TRIES TO WATCH HER DIET. SHE IS NOT ABLE TO DO MUCH EXERCISE. [facility] Medical History (Updated 10/15/24 @ 12:57 by Randolph Awad MD) Pulmonary fibrosis Asthma DONA (obstructive sleep apnea) Obesity (BMI 30-39.9) Gastritis Social History Patient Tobacco Use Status: Never used Tobacco Review of Systems Const All systems reviewed & are unremarkable except as noted in HPI and below Eyes Reports no additional complaints ENT Reports nasal congestion (MILD OFF AND ON) Card Reports dyspnea on exertion (MILD) Resp Reports as per HPI and Reports dyspnea on exertion (MILD) GI Reports heartburn (OFF AND ON, WITH CERTAIN FOODS, TREATED WITH OMEPRAZOLE) Reports hematuria (A FEW TIMES AND HAS BEEN CHECKED BY UROLOGY) Musc Reports no additional complaints Skin/Breast Reports system reviewed and no additional complaints, except as documented Neuro Reports no additional complaints Psych Reports no additional complaints Endo Reports no additional complaints Lloyd/Lymph Reports no additional complaints Physical Exam Vital Signs: Last Vital Signs Pulse 97 10/15/24 11:44 BP 120/78 10/15/24 11:44 Pulse Ox 97 10/15/24 11:44 Oxygen Delivery Method Room Air 10/15/24 11:44 BMI result Body Mass Index 39.9 PATIENT IS GROSSLY OBESE WITH A ROUND FACE AND SHORT NECK Const General: comfortable, no acute distress, alert and awake Orientation/consciousness: patient oriented x3 HEENT Head: Yes normal to inspection General nose exam: No nasal polyps present and No nasal discharge present Face and sinus: Yes sinuses nontender Mouth: oropharynx abnormals (OROPHARYNX IS CROWDED, MALLAMPATI SCALE 4) Throat: Yes posterior oropharynx normal Eyes General: appearance normal, both eyes and all related structures Neck Neck: Yes normal visual inspection, Yes no lymphadenopathy, Yes trachea midline, Yes no JVD and Yes other (NECK CIRCUMFERENCE 17 IN) Thyroid: Thyroid normal Chest Chest palpation & inspection: normal inspection of the chest, normal palpation of entire chest wall and no tenderness Resp Effort & Inspection: normal respiratory effort Auscultation: clear to auscultation bilaterally, no crackles and no wheezes Cardio Palpation: normal PMI Rate: regular rate Rhythm: regular rhythm Heart sounds: no gallops and no murmurs Peripheral pulses: Peripheral pulses 2+ throughout GI Palpation (GI): Soft to palpation, nontender, No hepatosplenomegaly present, no masses and Other GI palpation findings present (ABDOMEN IS OBESE AND PROTUBERANT) Auscultation: normal bowel sounds Back/Spine/Pelvis Thoracic/Lumbar Spine: thoracic and lumbar spine normal to inspection Skin General skin exam: no rashes or lesions noted Neuro General: patient oriented x3 and no focal motor deficits Cranial nerves: Yes CN's II-XII intact bilaterally Extrem General: Yes normal to inspection, Yes no clubbing, cyanosis or edema and Yes no calf tenderness Psych Appearance: grossly normal and well kempt Speech and movement: Normal speech and movement present Results Reviewed Results Reviewed: CHEST X-RAY ; REPORT REVIEWED, PULMONARY RETICULATION AND SOME FIBROSIS REPORTED , CONCERNING FOR INTERSTITIAL LUNG DISEASE. PREVIOUS SLEEP STUDY IN 2022, POSITIVE FOR OBSTRUCTIVE SLEEP APNEA, TOTAL SLEEP TIME AHI 13.8, ALONG WITH PERIODIC LIMB MOVEMENTS. Assessment & Plan Assessment & Plan (1) Obesity (BMI 30-39.9): Comment: PATIENT HAS BEEN GROSSLY OBESE. CURRENT BMI 39.9. PATIENT ON DIET AND ALSO OZEMPIC THERAPY Code(s): E66.9 - Obesity, unspecified Category: Medical Plan: INSTRUCTED TO LOSE WEIGHT, IN ADDITION TO THE CURRENT THERAPY SHE SHOULD ALSO START WALKING ON A DAILY BASIS (2) DONA (obstructive sleep apnea): Comment: PATIENT DOES HAVE SYMPTOMS OF SLEEP APNEA. PREVIOUS POLYSOMNOGRAM STUDY IN 2022 HAS BEEN POSITIVE FOR SLEEP APNEA. SHE HAD QUALIFIED FOR CPAP WHICH WAS PROVIDED. CPAP MACHINE TAKEN AWAY BECAUSE OF NONCOMPLIANCE. PATIENT CLAIMS THAT SHE JUST DID NOT UNDERSTAND HOW TO USE THE MACHINE AND NOBODY HELPED HER SO THIS WAS COUNTED NONCOMPLIANCE. SHE IS WILLING TO USE THE CPAP NOW. TO PROVIDE HER WITH THE CPAP THERAPY SHE WOULD NEED TO HAVE A REPEAT SLEEP STUDY, AND THEN TAKE IT FROM THERE. Code(s): G47.33 - Obstructive sleep apnea (adult) (pediatric) Category: Medical Plan: HOME-BASED SLEEP STUDY IS ORDERED TO ESTABLISH THE DIAGNOSIS OF DONA. ONCE WE HAVE POSITIVE DIAGNOSIS FOR DONA SHE WILL BE STARTED ON CPAP THERAPY. (3) Asthma: Comment: SHE HAS INTERMITTENT BOUTS OF DYSPNEA WITH SOME COUGH. CLINICALLY DIAGNOSED TO HAVE ASTHMA, AND IS BEING TREATED WITH ARNUITY AND ALBUTEROL INHALER. SHE USES ALBUTEROL ONLY ONCE IN A WHILE. Code(s): J45.909 - Unspecified asthma, uncomplicated Category: Medical Plan: PATIENT NEEDS TO HAVE COMPLETE PULMONARY FUNCTION TEST TO ESTABLISH THE DIAGNOSIS. SO PULMONARY FUNCTION TEST IS BEING ORDERED. (4) Pulmonary fibrosis: Comment: RECENT CHEST X-RAY IS REPORTED TO SHOW FIBROTIC CHANGES AND RETICULATION IN THE LOWER LOBES. PER HISTORY SHE DOES NOT HAVE HISTORY OF EXPOSURE TO ANY CHEMICAL DUST. OR FUMES ETC. HER USED TO BE A SMOKER. Code(s): J84.10 - Pulmonary fibrosis, unspecified Category: Medical Plan: JUST FOR CLARIFICATION I WILL ORDER A CT SCAN OF THE CHEST Orders: Orders CT chest wo IV con Today Randolph Awad MD J45.909 - Unspecified asthma, uncomplicated, J84.10 - Pulmonary fibrosis, unspecified PFT pulmonary function test Today Randolph Awad MD E66.9 - Obesity, unspecified, J45.909 - Unspecified asthma, uncomplicated, J84.10 - Pulmonary fib rosis, unspecified RT home sleep study Today Randolph Awad MD E66.9 - Obesity, unspecified, G47.33 - Obstructive sleep apnea (adult) (pediatric) Medications: Changed From lidocaine 5% leave on most painful area for up to 12 hrs 1 patch topical DAILY 15 ea 0RF To lidocaine 5% leave on most painful area for up to 12 hrs 1 patch topical DAILY PRN Leticia Ambrocio NP Coding Level of Care Code New Pt Level 4 (13202) Diagnoses Obesity (BMI 30-39.9) E66.9 DONA (obstructive sleep apnea) G47.33 Asthma J45.909 Pulmonary fibrosis J84.10
--- OUTSIDE RECORDS SUMMARY | 2024-10-15 14:01 | XMS_ITS | Encounter Summary ---
Author Organization [employer] Address 75 [facility] 7t [place] [address] Care Team Providers Care Septic Technician Name Role Phone Kandi Vanessa Ciera NORTONP Primary Care Provider [phone] Lakeisha Yadav NP Primary Care Provider [phone] Vivien Ohara MD Primary Care Provider [phone] Reason for Visit * Reason Comments Med Refill Encounter Details Date Type Department Care Team (Late st Contact Info) Description 08/14/2022 Refill [facility] 230 [place], [place] [phone] Hailey Gomez MD 230 [place] [address] Cough in adult Social History Tobacco Use [...] Description 10/26/2024 11:30 AM EDT Office Visit [facility] MEDICINE [address] [place] [address] Vivien Ohara MD [address] [place] [address] documented as of this encounter Visit Diagnoses Diagnosis Cough in adult documented in this encounter Care Teams Septic Technician Relationship Specialty Start Date End Date Kandi Vanessa FNP PCP - General Family Medicine 03/07/22 05/02/23 Lakeisha Yadav NP [address] [place] [phone] PCP - General Family Medicine 05/03/23 08/18/23 Vivien Ohara MD [address] [place] [address] PCP - General Family Medicine 08/19/23 documented as of this encounter
--- OUTSIDE RECORDS SUMMARY | 2024-10-15 14:01 | XMS_ITS | Encounter Summary ---
Author Organization [employer] Address 75 [facility] 7 [place] [address] Care Team Providers Care Medical Staff Assistant Name Role Phone Vivien Ohara MD Primary Care Provider Reason for Visit * Reason Comments Med Refill Encounter Details Date Type Department Care Team ([facility] st Contact Info) Description 05/04/2024 Refill [facility] MEDICINE 230 [place] [address] Vivien Ohara MD 230 [place] [address] Social History Tobacco Use Types Packs/Day Years [...] Description 10/26/2024 11:30 AM EDT Office Visit [facility] MEDICINE 230 [place] [address] Vivien Ohara MD [address] [place] [address] documented as of this encounter Visit Diagnoses Not on filedocumented in this encounter Additional Health Concerns Assessment Noted Time PHQ-9 Depression Total Score: 0 03/14/20 23 1:40 PM EDT documented as of this encounter Care Teams Medical Staff Assistant Relationship Specialty Start Date End Date Vivien Ohara MD [address] [place] [address] PCP - General Family Medicine 08/19/23 documented as of this encounter
--- OUTSIDE RECORDS SUMMARY | 2024-10-15 14:01 | XMS_ITS | Encounter Summary ---
Author Organization [employer] Address 75 [facility] 7 [place] [address] Care Team Providers Care Hat And Cap Opener Name Role Phone Vivien Ohara MD Primary Care Provider Reason for Visit * Reason Comments Med Refill Encounter Details Date Type Department Care Team ([facility] st Contact Info) Description 05/14/2024 Refill [facility] MED[facility]INE 230 [place] [address] Vivien Ohara MD 230 [place] [address] Mild intermittent asthma with acute exacerbation Social [...] Description 10/26/2024 11:30 AM EDT Office Visit [facility] MEDICINE [address] [place] [address] Vivien Ohara MD [address] [place] [address] documented as of this encounter Visit Diagnoses Diagnosis Mild intermittent asthma with acute exacerbation documented in this encounter Additional Health Concerns Assessment Noted Time PHQ-9 Depression Total Score: 0 03/14/20 23 1:40 PM EDT documented as of this encounter Care Teams Hat And Cap Opener Relationship Specialty Start Date End Date Vivien Ohara MD [address] [place] [address] [phone] PCP - General Family Medicine 08/19/23 documented as of this encounter
--- OUTSIDE RECORDS SUMMARY | 2024-10-15 14:01 | XMS_ITS | Encounter Summary ---
Author Organization [employer] Address [address] [facility] 7t [place] [address] Care Team Providers Care Gun Perforator Name Role Phone Lakeisha Yadav NP Primary Care Provider [phone] Vivien Ohara MD Primary Care Provider [phone] Reason for Visit * Reason Comments Med Refill Encounter Details Date Type Department Care Team ([facility] st Contact Info) Description 08/17/2023 Refill [facility] MED[facility] 230 [place] [address] Name, MD Dylon [address] [place] [address] Mild intermittent asthma with acute exacerbation Social [...] 10/26/2024 11:30 AM EDT Office Visit [facility] MEDICINE [address] [place] [address] Vivien Ohara MD [address] [place] [address] documented as of this encounter Visit Diagnoses Diagnosis Mild intermittent asthma with acute exacerbation documented in this encounter Additional Health Concerns Assessment Noted Time PHQ-9 Depression Total Score: 0 03/14/20 23 1:40 PM EDT documented as of this encounter Care Teams Gun Perforator Relationship Specialty Start Date End Date Lakeisha Yadav NP [address] [place] [address] PCP - General Family Medicine 05/03/23 08/18/23 Vivien Ohara MD [address] [place] [address] PCP - General Family Medicine 08/19/23 documented as of this encounter
--- OUTSIDE RECORDS SUMMARY | 2024-10-15 14:01 | XMS_ITS | Encounter Summary ---
Author Organization [employer] Address [address] [place] [address] 7 [place] [address] Care Team Providers Care House Wirer Name Role Phone Vivien Ohara MD Primary Care Provider Reason for Referral * Consultation (Routine) - Pending Review Specialty Diagnoses / Procedures Referred By Contac t Referred To Contact Pharmacy Diagnoses Type 2 diabetes mellitus without complication, without long-term current use of insulin (CMS/HCC) Hypertension, unspecified type Vivien Ohara MD 230 [place] [address] Phone: tel: fax: Referral ID Status Reason Start Date Expiration Date Visits Requested Visits Authorized [id number] Pending Review Continuity of Care 04/29/2024 04/29/2025 6 6 Encounter Details Date Type Department Care Team (Late st Contact Info) Description 04/29/2024 Orders Only [facility] MED[facility]INE [address] [place] [address] Vivien Ohara MD [address] [place], [place] [phone] Type 2 diabetes mellitus without complication, without [...] Description 10/26/2024 11:30 AM EDT Office Visit [facility] MED[facility] [address] [place] [address] Vivien Ohara MD [address] [place], [place] [phone] Scheduled Referrals Name Type Priority Associated Diagnoses Orde r Schedule Referral to Pharmacy MTM Outpatient Referral Routine Type 2 diabetes mellitus without complication, without long-term current use of insulin ([facility]) Hypertension, unspecified type Ordered: 04/29/2024 documented as of this encounter Visit Diagnoses Diagnosis Type 2 diabetes mellitus without complication, without long-term current use of insulin ([facility])- Primary Hypertension, unspecified type documented in this encounter Additional Health Concerns Assessment Noted Time PHQ-9 Depression Total Score: 0 03/14/20 23 1:40 PM EDT documented as of this encounter Care Teams House Wirer Relationship Specialty Start Date End Date Vivien Ohara MD [address] [place] [phone] PCP - General Family Medicine 08/19/23 documented as of this encounter
--- OUTSIDE RECORDS SUMMARY | 2024-10-15 14:01 | XMS_ITS | Encounter Summary ---
Author Organization [employer] Address [address] [place] [address] [place] [address] Care Team Providers Care Pharmacy Ancillary Name Role Phone Kandi Vanessa Primary Care Provider [phone] Lakeisha Yadav NP Primary Care Provider [phone] Vivien Ohara MD Primary Care Provider [phone] Reason for Visit * Reason Onset Date Comments Results 08/03/2022 Encounter Details Date Type Department Care Team (Late st Contact Info) Description 08/03/2022 Telephone [facility] MEDICINE [address] [place] [address] Kandi Vanessa FNP [address] [place] [address] Dept [place] [address] Results Social History Tobacco Use Types Packs/Day [...] Description 10/26/2024 11:30 AM EDT Office Visit [facility] MEDICINE [address] [place] [address] Vivien Ohara MD [address] [place] [address] documented as of this encounter Visit Diagnoses Not on filedocumented in this encounter Care Teams Pharmacy Ancillary Relationship Specialty Start Date End Date Kandi Vanessa FNP PCP - General Family Medicine 03/07/22 05/02/23 Lakeisha Yadav NP [address] [place] [address] PCP - General Family Medicine 05/03/23 08/18/23 Vivien Ohara MD [address] [place] [address] PCP - General Family Medicine 08/19/23 documented as of this encounter
--- OUTSIDE RECORDS SUMMARY | 2024-10-15 14:01 | XMS_ITS | Clinical Summary ---
Author Organization [facility] Address [address] [facility] [address] [place] [address] Care Team Providers Care [employer] Solutions Architect Name Role Phone Vivien Ohara MD Primary Care Provider [phone] Allergies Active Allergy Reactions Criticality Noted Date Comments Sulfamethoxazole-Trimethoprim 2022 Penicillins Rash Low 01/25/2012 Sulfa Antibiotics Anaphylaxis High 07/20/2022 Trimethoprim Rash Low 04/25/2024 Medications clobetasol (Temovate) 0.05 % ointment Apply topically. 10/17/19 13 Active cholecalciferol (Vitamin D-3) 25 MCG (1000 UT) capsule Take 1 capsule by mouth in the morning. 01/01/20 22 Active montelukast (Singulair) 10 MG tablet Take 1 tablet by mouth at bed time. 10/28/19 16 Active polyethylene glycol, PEG, 3350 (Miralax) 17 g packet MIX 1 PACKET IN 4-8 OUNCES OF WATER AND DRINK ONCE DAILY 02/06/20 22 Active Stool Softener/Laxative 50-8.6 MG tablet Take 1 tablet by mouth in the morning. 01/02/20 22 Active omeprazole (PriLOSEC) [address] capsuleIndication s:Heartburn TAKE 1 CAPSULE BY MOUTH BEFORE BREAKFAST. DO NOT BREAK, CRUSH, DISSOLVE OR CHEW. 90 capsule 01/26/20 23 Active Blood Glucose Monitoring Suppl (ONE TOUCH ULTRA 2) w/Device kit 1 each 3 times daily. 1 kit 03/14/20 23 Active FreeStyle lancets 1 each by Other route 3 times daily. TEST BLOOD SUGAR THREE TIMES DAILY DIRECTED 100 each 11 03/14/20 23 Active Blood Glucose Monitoring Suppl (FreeStyle [place] Lite) w/Device kit TEST BLOOD SUGAR THREE TIMES DAILY DIRECTED 1 kit 03/14/20 23 Active Diclofenac Sodium 1 % gel APPLY 2 GRAMS TOPICALLY TO AFFECTED AREA(S) FOUR TIMES DAILY 100 g 3 05/27/20 23 Active cyclobenzaprine (Flexeril) 10 MG tablet Take 1 tablet (10 mg) by mouth at bedtime for 10 days. 10 tablet 09/23/19 24 Active albuterol (2.5 MG/3ML) 0.083% nebulizer solutionIndicatio ns:Mild intermittent asthma with acute exacerbation INHALE 1 AMPULE USING A NEBULIZER FOUR TIMES DAILY NEEDED 90 mL 3 10/08/19 24 Active valsartan (Diovan) 160 MG tabletIndications :Hypertension, unspecified type Take 1 tablet (160 mg) by mouth Once per day. 90 tablet 3 01/16/20 24 025 Active lidocaine (Lidoderm) 5 % patchIndications: Primary osteoarthritis involving multiple joints Apply 1 patch topically Once per day. Remove & discard patch within 12 hours or as directed by . 30 patch 11 01/16/20 24 Active Alcohol Swabs (Alcohol Prep) 70 % pads USE EVERY DAY 100 each 01/27/20 24 Active glucose blood (FREESTYLE LITE) test stripIndications: Type 2 diabetes mellitus without complication, without long-term current use of insulin ([facility]) TEST BLOOD SUGAR THREE TIMES DAILY DIRECTED 100 each 5 03/19/20 24 Active TRUEplus Lancets 33G miscIndications:T ype 2 diabetes mellitus without complication, without long-term current use of insulin ([facility]) TEST BLOOD SUGAR THREE TIMES DAILY DIRECTED 100 each 5 03/19/20 24 Active EPINEPHrine (Epipen) 0.3 MG/0.3ML injection syringe INJECT INTRAMUSCULARLY DIRECTED ON PACKAGE AND GO TO EMERGENCY ROOM OR CALL 911. 2 each 04/17/20 24 Active albuterol (Ventolin HFA) 108 (90 Base) MCG/ACT inhalerIndication s:Mild intermittent asthma with acute exacerbation INHALE 2 PUFFS BY MOUTH EVERY 4 TO 6 HOURS NEEDED 18 g 04/17/20 24 Active tolterodine LA (Detrol LA) 4 MG 24 hr capsule Take 4 mg by mouth Once per day. 04/16/20 24 Active fluticasone (Flonase) 50 MCG/ACT nasal sprayIndications: Seasonal allergic rhinitis, unspecified trigger INSTILL 1-2 SPRAYS IN EACH NOSTRIL ONCE DAILY NEEDED 48 g 1 05/14/20 24 Active metFORMIN, OSM, (Fortamet) 1000 MG 24 hr tablet Take 1 tablet (1,000 mg) by mouth with breakfast and with evening meal. Do not crush, chew, or split. 180 tablet 3 05/13/20 24 025 Active Ozempic, 0.25 or 0.5 MG/DOSE, 2 MG/3ML solution pen-injectorIndic ations:Type 2 diabetes mellitus without complication, without long-term current use of insulin (CMS/HCC) INJECT 0.25 MG SUBCUTANEOUSLY EVERY 7 DAYS IN THE ABDOMEN, THIGHS OR UPPER ARM. ROTATE INJECTION SITES. 3 mL 1 07/09/20 24 Active gabapentin (Neurontin) 100 MG capsuleIndication s:Fibromyalgia TAKE 2 CAPSULES BY MOUTH EVERY 8 HOURS 180 capsule 2 07/13/20 24 Active fluticasone furoate (Arnuity Ellipta) 100 MCG/ACT inhalerIndication s:Mild intermittent asthma with acute exacerbation INHALE 1 PUFF BY MOUTH EVERY DAY AT THE SAME TIME RINSE MOUTH AFTER USING 30 each 3 08/10/19 25 Active omeprazole (PriLOSEC) [address] capsule TAKE 1 CAPSULE BY MOUTH EVERY DAY 90 capsule 1 08/10/19 25 Active cetirizine (ZyrTEC) 10 MG tabletIndications :Seasonal allergic rhinitis, unspecified trigger TAKE 1 TABLET BY MOUTH EVERY DAY NEEDED FOR ALLERGY OR RUNNY NOSE 90 tablet 1 09/09/19 25 Active levothyroxine (Synthroid, Levoxyl) 50 MCG tabletIndications :Multinodular goiter TAKE 1 TABLET BY MOUTH EVERY DAY 90 tablet 1 09/09/19 25 Active fenofibrate (Tricor) 54 MG tablet TAKE 1 TABLET BY MOUTH ONCE DAILY IN THE MORNING 90 tablet 1 09/09/19 25 Active aspirin (Aspirin Low Dose) 81 MG EC tabletIndications :Primary hypertension TAKE 1 TABLET BY MOUTH ONCE DAILY IN THE MORNING 90 tablet 1 09/09/19 25 Active Active Problems Problem Noted Date Diagnosed Date [...] 1:54 PM EDT): - previously seen by [facility] Urologist -was recommended bladder suspension surgery -pt has both stress and urge incontinence -will refer back to Urologist -discussed about possible side effects including urinary problem with new medication for type 2 diabetes and pt verbalize understanding Assessment & Plan (01/16/2024 11:23 AM EDT): - previously seen by [facility] Urologist -was recommended bladder suspension surgery -pt [...] yet. Discuss next visit Lipids: TG elevated 10/7/22 Eye exam: 10 years ago. Noticing floaters. Will task MA to contact pt about eye care centers she can call for appt Dental: Refer 03/14/23 PNA (PPSV, then PCV 13): Declines PCV 20 today 03/14/23 TDap/Td: 03/02/2011, states she had repeat in [place]. No records. Will task MA to try and locate [place] records Foot exam/peripheral pulses: WNL 05/07 on [...] visit - eye exam: referred again to [facility] eye care - microalbumin: Apr 2022, mild [...] numbness - eye exam: referred again to [facility] eye care - microalbumin: Apr 2022, mild [...] numbness - eye exam: referred again to [facility] eye care - microalbumin: Apr 2022, mild [...] check RAST or referral to allergy / computer operations specialist Dyslipidemia 10/31/2012 Assessment & Plan (01/16/2024 [...] 1:54 PM EDT): - sleep study at [facility] on 03/06/23, ordered by previous PCP - report recommends in-lab for titration study or auto-PAP 6-20 cm H2O - script for AutoPAP was written in September 2023, will check up on that Assessment & Plan (01/16/2024 11:20 AM EDT): - sleep study at [facility] on 03/06/23, ordered by previous PCP - report recommends in-lab for titration study or auto-PAP 6-20 cm H2O - script for AutoPAP was written in September 2023, will check up on that Assessment & Plan (10/06/2023 4:49 PM EDT): - sleep study at [facility] on 03/06/23, ordered by previous PCP - [...] Description 09/22/2024 1:20 PM EST Office Visit [facility] [address] [place] [phone] Oksana Ernst ANP Dysuria (Primary Dx); Gastroesophageal reflux disease, unspecified whether esophagitis present; Vaginal itching; Type 2 diabetes mellitus with hyperlipidemia ([facility]) ([facility]) 09/09/2024 Refill [facility] [address] [place] [phone] Oksana Ernst ANP Primary hypertension 09/09/2024 Refill [facility] [address] [place] [address] Vivien Ohara MD Seasonal allergic rhinitis, unspecified trigger; Multinodular goiter; Primary hypertension 09/03/2024 Telephone [facility] [address] [place] [phone] Yuval Henry MD 09/01/2024 6:00 PM EST Office Visit [facility] [address] [place] [phone] Yuval Henry MD Subacute cough 08/10/2024 Refill [facility] [address] [place] [phone] Vivien Ohara MD 08/08/2024 Refill [facility] [address] [place] [address] Vivien Ohara MD Mild intermittent asthma with acute exacerbation from Last 3 Months Immunizations Name Administration [...] Description 10/26/2024 11:30 AM EDT Office Visit [facility] [address] [place] [address] Vivien Ohara MD [address] [place] [address] Health Maintenance Due Date Last Done Comments [...] Foot Exam 03/14/2024 03/14/2023, COVID-19 Vaccine ( - season) 2024 Influenza Vaccine (#1) 2024 05/25/2013 [...] EST Type 2 diabetes mellitus with hyperlipidemia ([facility]/H[facility]) ([facility]) POCT GLYCATED HEMOGLOBIN, TOTAL Routine 09/22/2024 3:10 PM EST Type 2 diabetes mellitus with hyperlipidemia ([facility]) ([facility]) URINALYSIS, COMPLETE Routine 09/22/2024 1:52 PM EST Dysuria CULTURE, URINE, ROUTINE Routine 09/22/2024 1:52 PM EST Dysuria BACTERIAL VAGINOSIS PANEL Routine 09/22/2024 1:52 PM EST Vaginal itching XR CHEST 2 VIEWS Routine 09/02/2024 2:48 [...] complication, without long-term current use of insulin ([facility]) Hypertension, unspecified type BI MAMMOGRAM SCREENING TOMOSYNTHESIS BILATERAL Routine 01/07/2024 12:55 PM EDT ALBUMIN, RANDOM URINE W/CREATININE Routine 05/01/2022 4:14 PM EDT from Last 3 Months or Most Recently Relevant to Health Maintenance Results * (ABNORMAL) POCT HGB A1C (09/22/2024 3:10 PM EST) Hemoglobin A1C 6.8(A) 4.0 - 6.0 % Blood 09/22/2024 3:10 PM EST Oksana Ernst ANP POINT OF CARE TEST ENTER/EDIT OR DERABLES Final Result * POCT Glucose (09/22/2024 3:10 PM EST) Pathologist [facility] Glucose Blood, POC 128 60 - 200 mg/dL Blood Capillary blood specimen / Unknown 09/22/2024 3:10 PM EST Oksana Ernst ANP POINT OF CARE TEST ENTER/EDIT OR DERABLES Final Result * Bacterial Vaginosis Panel (09/22/2024 1:52 PM EST) Pathologist [facility] TRICHOMONAS VAGINALIS DETECTION BY PCR NOT DETECTED Not Detect [facility] BACTERIAL VAGINOSIS DETECTION BY PCR NEGATIVE Negative [facility] Comment:The BV organism targ ets of the Xpert Xpress MVP test can becommensal in women; Xpert Xpress MVP positive results forbacterial vaginosis should be considered in conjunction withother clinical and patient information to determine thedisease status. Organisms that are not detected by the XpertXpress MVP test have also been reported to be associatedwith BV and aerobic vaginitis.The Xpert Xpress MVP test performance has not been evaluatedin patients under the age of 14. DELANEY GROUP DETECTION BY PCR NOT DETECTED Not Detect [facility] Delaney glab krusei PCR NOT DETECTED Not Detect [facility] Swab Vaginal structure / Unknown 09/22/2024 1:52 PM EST 09/22/2024 4:10 PM EST Oksana Ernst ANP LAB MICROBIOLOGY - GENERAL ORDER HALINA Final Result [facility] [address] [place] [phone] * (ABNORMAL) Urinalysis Complete (09/22/2024 1:52 PM EST) Color Urine Yellow [facility] Appearance Urine Clear [facility] PH 6.5 5.0 - 9.0 [facility] Glucose Urine UA Negative Negative mg/dL [facility] Urine Blood Small (1+)(A) Negative [facility] Specific Wheeler - Urine 1.010 1.005 - 1.025 [facility] Urine Protein Negative Neg-Trace mg/dL [facility] Urine Ketones Negative Negative mg/dL [facility] Nitrite Urine Negative Negative [facility] Leukocyte Esterase Urine Large (3+)(A) Negative [facility] RBC Urine 3-5(A) 0 - 2 /HPF [facility] Urine WBC >50(A) 0 - 5 /HPF [facility] Urine Squamous Epithelial Cell 11-20 0 - 2 /HPF [facility] Urine Bacteria 1+ None Seen [facility] Hyaline Casts, Urine 0-2 0 - 2 /LPF [facility] Urine (Urine, Random) 09/22/2024 1:52 PM EST 09/22/2024 4:10 PM EST Oksana Ernst [facility] URINE ORDERABLES Final Resul t Performing Organization Address City/[facility] Co de Phone Number [facility] [address] [place] [address] [phone] * Culture, Urine, Routine (09/22/2024 1:52 PM EST) Urine Urine specimen obtained by clean catch procedure / Unknown 09/22/2024 1:52 PM EST 09/22/2024 4:10 PM EST Comment:UACC Narrative [facility] - 09/24/2024 9:53 AM EST Urine Culture No growth. Specimen Source: Urine clean catch Oksana Ernst [facility] MICROBIOLOGY - GENERAL ORDER HALINA Final Result [facility] [address] [place] [phone] * XR Chest 2 Views (09/02/2024 2:48 PM EST) Anatomical Region Laterality Modality Chest Radiographic Diana ging 09/02/2024 2:48 PM EST Narrative 09/02/2024 3:12 PM EST ?[facility] ?[address] ?[place] [address] ?XRay Report ? Signed ? Patient: Deleon,Lia ?MR#: [id number] ?? 910 ? : 1960 ?Acct:[id number] ? Age/Sex: 64 / F ?ADM Date: 09/02/24 ? Loc: HO.HHCX ? Attending Dr: Yuval Henry MD ? Ordering Physician: Yuval Henry MD ?? Date of Service: 09/02/24 ?? Procedure(s): XR chest 2V ?? Accession Number(s): [id number] ? cc: Yuval Henry MD ? EXAMINATION: [...] DD/ 1448 ? TD/TT: 09/02/24 1500 ? Steam Brush Operator: ? Procedure Note Dariusz, Ariela - 09/02/2024 [facility] [address] [place] [address] XRay Report Signed Patient: Nathanael Deleon#: [id number] 910 : 9Acct:[id number] Age/Sex: 64 / FADM Date: 09/02/24 Loc: HO.HHCX Attending Dr: Yuval Henry MD Ordering Physician: Yuval Henry MD Date of Service: 09/02/24 Procedure(s): XR chest 2V Accession Number(s): [id number] cc: Yuval Henry MD EXAMINATION: XR CHEST [...] 09/02/24 1509 DD/ 1448 TD/TT: 09/02/24 1500 Steam Brush Operator: Yuval Henry MD IMG XR PROCEDURES Edited Result - Final * Influenza B (ID NOW Rapid Molecular) (09/01/2024 6:09 PM EST) Influenza B Negative Negative, Indeterminate [facility] Swab 09/01/2024 6:09 PM EST us Yuval Henry MD POINT OF CARE TEST ENTER/EDIT OR DERABLES Final Result [facility] [address] [place] [phone] * Influenza A (ID NOW Rapid Molecular) (09/01/2024 6:09 PM EST) [facility] Influenza A Negative Negative, Indeterminate [facility] Swab 09/01/2024 6:09 PM EST us Yuval Henry MD POINT OF CARE TEST ENTER/EDIT OR DERABLES Final Result [facility] [address] [place] [phone] * POCT Rapid COVID Ag (09/01/2024 6:09 PM EST) [facility] Rapid COVID Ag Negative Swab 09/01/2024 6:09 PM EST us Yuval Henry MD POINT OF CARE TEST ENTER/EDIT OR DERABLES Final Result * (ABNORMAL) Respiratory Viral Panel PCR (09/01/2024 12:00 AM EST) [facility] Adenovirus PCR Not Detected Not Detect. [facility] Bordetella pertussis PCR Not Detected Not Detect. [facility] Comment:Interpret results wi th caution. If B. pertussis isspecifically suspected, additional testing using analternate method is recommended. Bordetella parapertussis PCR Not Detected Not Detect. [facility] Chlamydia pneumoniae PCR Not Detected Not Detect. [facility] Coronavirus 229E PCR Not Detected Not Detect. [facility] Coronavirus HKU1 PCR Not Detected Not Detect. [facility] Coronavirus NL63 PCR Not Detected Not Detect. [facility] Coronavirus OC43 PCR Not Detected Not Detect. [facility] SARS-CoV-2 PCR Not Detected Not Detect. [facility] Comment:SARS-CoV-2 not detec bridger by real-time RT-PCR.Note: If clinical suspicion for Sars-CoV-2 is high, continueto maintain precautions and consider repeat testing.Test results should be interpreted in the context ofclinical findings and other laboratory data.Rare polymorphisms exist that could lead to false-negativeor false-positive results. If results do not match theclinical findings, additional testing should be considered.Results reported to [facility].This test has been authorized by the FDA under the EmergencyUse Authorization (EUA) for use by authorized laboratories. Influenza A PCR Detected(A) Not Detect. [facility] Influenza B PCR Not Detected Not Detect. [facility] Human metapneumovirus PCR Not Detected Not Detect. [facility] Rhino/Enterovirus PCR Not Detected Not Detect. [facility] Mycoplasma pneumoniae PCR Not Detected Not Detect. [facility] Parainfluenza 1 PCR Not Detected Not Detect. [facility] Parainfluenza 2 PCR Not Detected Not Detect. [facility] Parainfluenza 3 PCR Not Detected Not Detect. [facility] Parainfluenza 4 PCR Not Detected Not Detect. [facility] RSV PCR Not Detected Not Detect. [facility] Resp Panel NA Note See Note H [facility] Comment:All results must be correlated with [...] assay is performed by Multiplexed PCR, utilizing [employer] Film Array. 09/01/2024 09/01/2024 us Yuval Henry MD LAB BLOOD ORDERABLES Final Resul t [facility] [address] [place] [phone] * (ABNORMAL) Lipid Panel with Reflex to Direct LDL (05/13/2024 11:00 AM EDT) Triglycerides 200(H) <150 mg/dL [facility] Comment:Desirable Triglyceri de: less than 150 mg/dLBorderline High Triglyceride 150-199 mg/dLHigh Triglyceride: 200-499 mg/dLVery High Triglyceride: greater than or equal to 5OO mg/dL Cholesterol 180 <200 mg/dL [facility] Comment:Desirable Cholestero l: less than 200 mg/dLBorderline High Cholesterol: 200-239 mg/dLHigh Cholesterol: greater than 239 mg/dL LDL Cholesterol Calculated 95 <100 mg/dL [facility] Comment:Desirable LDL: less than 100 mg/dLNear Optimal/Above Optimal LDL: 110- 129 mg/dLBorderline High LDL: 130-159 mg/dLHigh LDL: 160-189 mg/dLVery High LDL: greater than or equal to 190 mg/dL HDL Cholesterol 45 >40 mg/dL [facility] Comment:Desirable HDL: great er than 40 mg/dL Note: This HDL assay may give artificially low results in patients with liver disease. Blood 05/13/2024 11:0 0 AM EDT 05/13/2024 11:37 AM EDT us Vivien Ohara MD LAB BLOOD ORDERABLES Final Resul t [facility] [address] [place] [phone] * BI Mammogram Screening Tomosynthesis Bilateral (01/07/2024 12:55 PM EDT) Anatomical Region Laterality Modality Breast Bilateral Mammography 01/07/2024 12:5 5 PM EDT Narrative 02/06/2024 9:41 AM EDT ? [facility] ? [address] ?[place] [address] ? Mammography Report ? Signed ? Patient: Deleon,Lia ?MR#: [id number] ?? 910 ? : 1960 ?Acct:[id number] ? Age/Sex: 63 / F ?ADM Date: /11/24 ? Loc: HO.MAMMO ? Attending Dr: Vivien Ohara MD ? Ordering Physician: Vivien Ohara MD ?Results: 1Negative ? Date of Service: 01/07/24 ?Follow Up: 1 Year From Orig ?? inal Mammogram ? Procedure(s): MM tomosynthesis screening BI ?? Accession Number(s): [id number] ? cc: Vivien Ohara MD ? EXAMINATION: [...] by Aga Cerrato MD in OV> ? 02/06/24936 ? DD/ 1255 ? TD/TT: ? Steam Brush Operator: ? Procedure Note Donotgabyter, Image - 02/06/2024 [facility] [address] [place], [place] [address] Mammography Report Signed Patient: Nathanael Deleon#: [id number] 910 : 9Acct:[id number] Age/Sex: 63 / FADM Date: 01/07/24 Loc: MAMMO Attending Dr: Vivien Ohara MD Ordering Physician: Vivien Ohara MDResults: 1Negative Date of Service: 01/07/24Follow Up: 1 Year From Orig inal Mammogram Procedure(s): MM tomosynthesis screening BI Accession Number(s): [id number] cc: Vivien Ohara MD EXAMINATION: MM SCREENING [...] in OV> 02/06/24 0937 DD/ 1255 TD/TT: Steam Brush Operator: us Vivien Ohara MD IMG BI PROCEDURES [...] LABS 05/01/2022 4:14 PM EDT Kandi Vanessa [facility] URINE ORDERABLES Final Result [facility] from Last 3 Months or Most Recently Relevant to Health Maintenance Insurance [facility] Care Teams [employer] Solutions Architect Relationship Specialty Start Date End Date Vivien Ohara MD [address] [place] [address] PCP - General Family Medicine 08/19/23
--- OUTSIDE RECORDS SUMMARY | 2024-10-15 14:01 | XMS_ITS | Encounter Summary ---
Author Organization [employer] Address [address] [facility] 7 [place] [address] Care Team Providers Care Sole Polisher Name Role Phone Vivien Ohara MD Primary Care Provider [phone] Reason for Visit * Reason Comments GERD Urinary Frequency Encounter Details Date Type Department Care Team (Latest Contact Info) Description 09/22/2024 1:20 PM EST Office Visit [facility] [address] [place] [phone] Oksana Ernst ANP [address] [place] [address] Dysuria (Primary Dx); Gastroesophageal reflux disease, unspecified whether esophagitis present; Vaginal itching; Type 2 diabetes mellitus with hyperlipidemia ([facility]) ([facility]) Social History Tobacco Use Types Packs/Day Years [...] diabetes mellitus with hyperlipidemia and hypertension (CMS/HCC) ([facility]) A1c < 7.0. Advised pt to hydrate [...] - POCT Glucose documented in this encounter Miscellaneous Notes * Result Encounter Note - LYNDA Davenport - 09/22/2024 1:20 PM EST Hi Lia, Your test results were normal. If you are continuing to have vaginal symptoms please discuss these with your primary care provider or call us for a sooner visit. You may benefit from topical (vaginal) estrogen cream as many people after menopause have vaginal symptoms that stem from hormonal changes and are not from a bacteria or yeast. Please call our office if you have any questions. Por favor llame a la oficina si tiene preguntas. Take care, Cu??Oksana gomez IMCU SPECIALIST documented in this encounter Plan of Treatment Upcoming Encounters Date Type Department Care Team (Late st Contact Info) Description 10/26/2024 11:30 AM EDT Office Visit [facility] [address] [place] [address] Vivien Ohara MD [address] [place] [address] documented as of this encounter Procedures Procedure Name Priority Date/Time Associated Diagnosis Comments POCT GLYCATED HEMOGLOBIN, TOTAL Routine 09/22/2024 3:10 PM EST Type 2 diabetes mellitus with hyperlipidemia (CMS/HCC) ([facility]) POCT GLUCOSE Routine 09/22/2024 3:10 PM EST Type 2 diabetes mellitus with hyperlipidemia (CMS/HCC) ([facility]) BACTERIAL VAGINOSIS PANEL Routine 09/22/2024 1:52 PM EST Vaginal itching URINALYSIS, COMPLETE Routine 09/22/2024 1:52 PM EST Dysuria CULTURE, URINE, ROUTINE Routine 09/22/2024 1:52 PM EST Dysuria documented [...] (09/22/2024 1:52 PM EST) Color Urine Yellow [facility] Appearance Urine Clear [facility] PH 6.5 5.0 - 9.0 [facility] Glucose Urine UA Negative Negative mg/dL [facility] Urine Blood Small (1+)(A) Negative [facility] Specific [place] - Urine 1.010 1.005 - 1.025 [facility] Urine Protein Negative Neg-Trace mg/dL [facility] Urine Ketones Negative Negative mg/dL [facility] Nitrite Urine Negative Negative [facility] Leukocyte Esterase Urine Large (3+)(A) Negative [facility] RBC Urine 3-5(A) 0 - 2 /HPF [facility] Urine WBC >50(A) 0 - 5 /HPF [facility] Urine Squamous Epithelial Cell 11-20 0 - 2 /HPF [facility] Urine Bacteria 1+ None Seen [facility] Hyaline Casts, Urine 0-2 0 - 2 /LPF [facility] Urine (Urine, Random) 09/22/2024 1:52 PM EST 09/22/2024 4:10 PM EST Oksana Ernst [facility] URINE ORDERABLES Final Resul t Performing Organization Address [facility]/ZIP Co de Phone Number [facility] [address] [place] [phone] * Culture, Urine, Routine (09/22/2024 1:52 PM EST) Urine Urine specimen obtained by clean catch procedure / Unknown 09/22/2024 1:52 PM EST 09/22/2024 4:10 PM EST Comment:UACC Narrative [facility] - 09/24/2024 9:53 AM EST Urine Culture No growth. Specimen Source: Urine clean catch Oksana Ernst [facility] MICROBIOLOGY - GENERAL ORDER HALINA Final Result Performing Organization Address [facility] Co de Phone Number [facility] [address] [place] [phone] * Bacterial Vaginosis Panel (09/22/2024 1:52 PM EST) TRICHOMONAS VAGINALIS DETECTION BY PCR NOT DETECTED Not Detect [facility] BACTERIAL VAGINOSIS DETECTION BY PCR NEGATIVE Negative [facility] Comment:The BV organism targ ets [...] DETECTION BY PCR NOT DETECTED Not Detect [facility] Delaney glab krusei PCR NOT DETECTED Not Detect [facility] Swab Vaginal structure / Unknown 09/22/2024 1:52 PM EST 09/22/2024 4:10 PM EST Oksana Ernst [facility] MICROBIOLOGY - GENERAL ORDER HALINA Final Result Performing Organization Address [facility] Co de Phone Number [facility] [address] [place] [phone] documented in this encounter Visit Diagnoses Diagnosis Dysuria- Primary Gastroesophageal reflux disease, unspecified whether esophagitis present Vaginal itching Pruritus of genital organs Type 2 diabetes mellitus with hyperlipidemia (CMS/HCC) (CMS/HCC) documented in this encounter Additional Health Concerns Assessment Noted Time PHQ-9 Depression Total Score: 0 03/14/20 23 1:40 PM EDT documented as of this encounter Care Teams Sole Polisher Relationship Specialty Start Date End Date Vivien Ohara MD [address] [place] [phone] PCP - General Family Medicine 08/19/23 documented as of this encounter
--- OUTSIDE RECORDS SUMMARY | 2024-10-15 14:01 | XMS_ITS | Encounter Summary ---
Author Organization [employer] Address [address] [facility] [facility] [address] [place] [address] Care Team Providers Care Waste Paper Hammermill Operator Name Role Phone Vivien Ohara MD Primary Care Provider [phone] Reason for Visit * Reason Comments Med Refill Encounter Details Date Type Department Care Team ([facility] st Contact Info) Description 11/06/2023 Refill [facility] [address] [place] [address] Amanda Moreno MD [address] [place] [address] Social History Tobacco Use Types Packs/Day Years [...] Description 10/26/2024 11:30 AM EDT Office Visit [facility] [address] [place] [phone] Vivien Ohara MD [address] [place] [phone] documented as of this encounter Visit Diagnoses Not on filedocumented in this encounter Additional Health Concerns Assessment Noted Time PHQ-9 Depression Total Score: 0 03/14/20 23 1:40 PM EDT documented as of this encounter Care Teams Waste Paper Hammermill Operator Relationship Specialty Start Date End Date Vivien Ohara MD [address] [place] [phone] PCP - General Family Medicine 08/19/23 documented as of this encounter
--- OUTSIDE RECORDS SUMMARY | 2024-10-15 14:02 | XMS_ITS | Encounter Summary ---
Author Organization [employer] Address [address] [facility] 7 [place] [address] Care Team Providers Care Lyft Driver Name Role Phone Vivien Ohara MD Primary Care Provider [phone] Reason for Visit * Reason Onset Date Comments Med Refill 03/10/2024 Encounter Details Date Type Department Care Team (Late st Contact Info) Description 03/10/2024 Refill [facility] [address] [place] [address] Vivien Ohara MD [address] [place] [address] Primary osteoarthritis involving multiple joints Social History [...] Description 10/26/2024 11:30 AM EDT Office Visit [facility] [address] [place] [phone] Vivien Ohara MD [address] [place] [phone] documented as of this encounter Visit Diagnoses Diagnosis Primary osteoarthritis involving multiple joints documented in this encounter Additional Health Concerns Assessment Noted Time PHQ-9 Depression Total Score: 0 03/14/20 23 1:40 PM EDT documented as of this encounter Care Teams Lyft Driver Relationship Specialty Start Date End Date Vivien Ohara MD [address] [place] [phone] PCP - General Family Medicine 08/19/23 documented as of this encounter
== END 2024-10-15 13:07 | disposition home or self-care (01) ==
LOC: HO.HPS 11:36
PROVIDERS: PCP Nurse Practitioner Primary Care; Visit Provider Internal Medicine
DX: G47.33 Obstructive sleep apnea (adult) (pediatric) (principal); J45.909 Unspecified asthma, uncomplicated; J84.10 Pulmonary fibrosis, unspecified
CPT/HCPCS: 99214

== ENCOUNTER → 2024-10-15 11:35 | Outpatient (BNVA) | payer OTHER, SELFPAY | PROVIDERS: PCP Nurse Practitioner Primary Care; Visit Provider Internal Medicine | DX: J45.909 Unspecified asthma, uncomplicated (principal); J84.10 Pulmonary fibrosis, unspecified; E66.9 Obesity, unspecified; G47.33 Obstructive sleep apnea (adult) (pediatric); Z68.39 Body mass index [BMI] 39.0-39.9, adult | CPT/HCPCS: 99212 ==

== ENCOUNTER 2024-10-18 12:16 | Emergency (ER) | payer OTHER, SELFPAY ==
--- NOTE | ~2024-10-18 | XR_ITS ---
CLINICAL HISTORY: left sided chest pain Chest Radiographs, 2 views Comparison: 09/02/24 Findings: No cardiomegaly. Normal mediastinal contours. No pneumothorax. No opacity. No pleural effusion. Normal upper abdomen. No acute fracture. Impression: No acute findings. This document has been electronically signed by: Beth Broderick MD on 10/18/2024 13:55:00
--- NOTE | 2024-10-18 12:20 | ECG_ITS ---
Test Reason : chest pain Blood Pressure : */* mmHG Vent. Rate : 86 BPM Atrial Rate : 86 BPM P-R Int : 174 ms QRS Dur : 74 ms QT Int : 372 ms P-R-T Axes : 29 7 49 degrees QTcB Int : 445 ms Normal sinus rhythm Normal ECG When compared with ECG of 25-Apr-2024 13:38, No significant change was found Referred By: Ligia Dale Electronically Signed By: TEZ KERNS MD
[2024-10-18 12:35] VITALS: BP 149/79; PULSE 84; RESP 18; TEMP 36.5; O2SAT 98; BMI 39.7
--- NOTE | 2024-10-18 12:37 | ED.CHESTPAIN ---
HPI - Chest Pain General Chief Complaint: Chest Pain Stated Complaint: chest and neck pain Time Seen by Provider: 10/18/24 15:20 Source: patient Mode of arrival: ambulatory Limitations: no limitations History of Present Illness ED Provider: Dr. Pelon Chicas HPI narrative: 64-year-old female with a history of pulmonary fibrosis, asthma, DONA, obesity, gastritis who presents emergency department for evaluation of chest pain. The patient states that she was woken from sleep at 04:00 hours with pain in the center of her chest. She points to her sternum when asked to localize the pain. She describes the pain as a sharp pain which has been constant but waxing and waning in intensity since onset. The pain was present at the time of my evaluation. She states the pain did radiate to her left jaw and left neck. The pain also radiate down her left arm. She states she took her blood pressure was 177/101. She states that the pain is 9/10 at its worse and at the time my evaluation was 4/10. Patient states she was had similar pain in the past and has been admitted to the hospital at least 3 times for this pain but does not have a definitive diagnosis to explain the pain. Patient states she did take her aspirin and blood pressure medication prior to coming to the emergency department. She denied fever, chills, rhinorrhea, sore throat, nausea, vomiting, diaphoresis associated with her pain. Related Data Home Medications ?Medication ?Instructions ?Recorded ?Confirmed albuterol sulfate 2.5 mg/3 mL mg inhalation QID PRN 10/15/24 10/15/24 (0.083 %) solution for nebulization aspirin 81 mg tablet,delayed 81 mg PO QAM 10/15/24 10/15/24 release cetirizine 10 mg tablet 10 mg PO DAILY PRN allergies 10/15/24 10/15/24 dapagliflozin propanediol 10 mg 10 mg PO DAILY 10/15/24 10/15/24 tablet (Farxiga) epinephrine 0.3 mg/0.3 mL IM 10/15/24 10/15/24 injection, auto-injector fenofibrate 54 mg tablet 54 mg PO DAILY 10/15/24 10/15/24 fluticasone furoate 100 inhalation DAILY 10/15/24 10/15/24 mcg/actuation blister powder for inhalation (Arnuity Ellipta) fluticasone propionate 50 intranasal 10/15/24 10/15/24 mcg/actuation nasal spray,suspension gabapentin 100 mg capsule 100 mg PO TID PRN 10/15/24 10/15/24 levothyroxine 50 mcg tablet 50 mcg PO DAILY 10/15/24 10/15/24 lidocaine 5 % topical patch 1 patch topical DAILY PRN 10/15/24 10/15/24 semaglutide 0.25 mg or 0.5 mg (2 mg subcut 10/15/24 10/15/24 mg/3 mL) subcutaneous pen injector (Ozempic) valsartan 160 mg tablet 160 mg PO DAILY 10/15/24 10/15/24 Previous Rx's ?Medication ?Instructions ?Recorded cyclobenzaprine 5 mg tablet 5 mg PO TID PRN muscle spasm #10 04/25/23 tabs omeprazole 40 mg capsule,delayed 40 mg PO DAILY #30 caps 11/26/23 release cranberry extract 425 mg capsule 425 mg PO BID #60 caps 04/16/24 tolterodine 4 mg capsule,extended 4 mg PO DAILY #30 caps 10/14/24 release 24 hr Allergies Allergy/AdvReac Type Severity Reaction Status Date / Time penicillin V Allergy Unknown Anaphylaxis Verified 10/18/24 12:35 Penicillins Allergy Unknown Rash Verified 10/18/24 12:35 Sulfa (Sulfonamide Allergy Unknown Anaphylaxis Verified 10/18/24 12:35 Antibiotics) sulfamethoxazole Allergy Unknown rash Verified 10/18/24 12:35 trimethoprim Allergy Unknown rash Verified 10/18/24 12:35 Review of Systems Review of Systems: Yes all other systems are reviewed and are negative [facility] Past Medical History [facility] Narrative: social history: Patient denies tobacco, alcohol and drug use. Medical History (Updated 10/18/24 @ 18:30 by Pelon Chicas MD) Pulmonary fibrosis Asthma DONA (obstructive sleep apnea) Obesity (BMI 30-39.9) Gastritis Social History Social History Patient Tobacco Use Status: Never used Tobacco Advance Directives: No Advance Directives Information Provided: Yes Physical Exam Vital Signs: Vital Signs: Last Vital Signs Temp 97.7 F 10/18/24 12:35 Pulse 73 10/18/24 16:10 Resp 14 10/18/24 16:10 BP 141/82 H 10/18/24 16:10 Pulse Ox 98 10/18/24 15:20 O2 Del Method Room Air 10/18/24 15:20 BMI result Body Mass Index 39.7 Vital signs revealed an elevated blood pressure of 155/76 otherwise unremarkable Exam: General: Awake, alert in no distress Head: Normocephalic, atraumatic EENT: PERRL, Lids normal, sclera normal, conjunctiva normal, nose normal , ears normal, throat without erythema or exudates Neck: Supple, no adenopathy Lung: breath sounds symmetric, no wheezing, rales or rhonchi Chest: symmetric movement, [id number] tenderness with palpation of the sternum and costochondral joints bilaterally Heart: regular rate and rhythm, normal S1, S2 no murmurs or rubs Abdomen: soft, non-tender, nondistended, normal bowel sounds Back: no vertebral tenderness, no CVAT Extremities: no deformities, moves all extremities symmetrically Neuro: Awake, alert, oriented, normal speech, cranial nerves intact, moves all extremities symmetrically Psych: Pleasant, cooperative Course Course Course Narrative: This is a Rapid Medical Examination (RME) performed by Ольга Dale PA-C in triage. Full HPI, ROS, assessment and treatment plan per primary provider in the Main ED. Hx: 64 yo female hx of asthma, DONA, pulmonary fibrosis here for eval of sternal chest pain w/ radiation to left chest/ jaw/ arm which woke her from her sleep at 0400. not exertional, not positional. gradually improving. assoc sob. 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 PE/vitals: hypertensive. in NAD, ambulating w/ steady gait. rrr. lungs clear. Plan: ekg, labs, cxr Medications Administered Discontinued Medications Generic Name Dose Route Start Last Admin Trade Name Freq PRN Reason Stop Dose Admin Ibuprofen 400 mg 10/18/24 15:56 10/18/24 16:17 Ibuprofen 400 Mg Tablet PO 10/18/24 15:57 400 mg ONCE STA Administration Medical Decision Making Medical Decision Making [facility] Narrative: 64-year-old female with a history of pulmonary fibrosis, asthma, DONA, obesity, gastritis who presents emergency department for evaluation of chest pain. The patient states that she was woken from sleep at 04:00 hours with pain in the center of her chest. She points to her sternum when asked to localize the pain. She describes the pain as a sharp pain which has been constant but waxing and waning in intensity since onset. The pain was present at the time of my evaluation. She states the pain did radiate to her left jaw and left neck. The pain also radiate down her left arm. She states she took her blood pressure was 177/101. She states that the pain is 9/10 at its worse and at the time my evaluation was 4/10. Patient states she was had similar pain in the past and has been admitted to the hospital at least 3 times for this pain but does not have a definitive diagnosis to explain the pain. Patient states she did take her aspirin and blood pressure medication prior to coming to the emergency department. vital signs were normal. Exam did reveal tenderness palpation over the sternum and costochondral joints bilaterally. Differential diagnosis: Includes but is not limited to Myocardial infarction, myocardial ischemia, costochondritis, chest wall pain, anxiety, anemia, electrolyte abnormalities Course: 16:02 My independent interpretation patient's laboratory evaluation as follows: CBC was normal. CMP was normal. High sensitive troponin I was below detectable limits. COVID-19, influenza and RSV were negative. TSH was normal. Patient was 12 EKG was unremarkable and unchanged from the previous 12 EKG. I did order a repeat troponin for now. Patient was ordered to get ibuprofen 400 mg orally for her chest pain. 18:26 Patient was repeat troponin was also below detectable limits. The patient did get improvement of her pain with ibuprofen 400 mg orally. At this time I suspect that the patient has costochondritis and I did discuss this with her. She was prescribed ibuprofen 400 mg 3 times a day for 4 days and as needed for pain. She was also given a prescription for extra-strength Tylenol 500 mg pills, 2 pills every 6 hours as needed for pain. She was given printed and verbal instructions on costochondritis and discharged home. Admission/Observation Consideration of admission/observation: Escalation of care including admission/observation considered ( yes) Lab Data MDM Lab Attestation statement: I reviewed the patient's lab results. 10/18/24 14:03 10/18/24 14:03 Labs: Lab Results 10/18/24 10/18/24 10/18/24 Range/Units 12:50 14:03 16:10 WBC 10.4 (4.8-10.8) X10*3/uL RBC 4.55 (4.20-5.50) X10*6/uL Hgb 13.2 (12.0-16.0) g/dl Hct 38.1 (37.0-47.0) % MCV 83.7 (80.0-98.0) fL MCH 29.0 (27.0-33.0) pg MCHC 34.6 (31.0-35.0) g/dl RDW 13.7 (11.0-16.0) % Plt Count 234 (160-400) X10*3/uL MPV 9.7 (9.4-12.3) fL Immature Gran % (Auto) 0.5 H (0.0-0.4) % Neut % (Auto) 61.7 (45-73) % Lymph % (Auto) 27.0 (20-40) % [place] % (Auto) 7.6 (2-11) % Eos % (Auto) 2.9 (0-4) % Baso % (Auto) 0.3 (0-2) % Lymph # (Auto) 2.8 (1.2-4.9) X10*3/uL [place] # (Auto) 0.8 (0.1-1.2) X10*3/uL Eos # (Auto) 0.3 (0.0-0.4) X10*3/uL Baso # (Auto) 0.0 (0.0-0.2) X10*3/uL Abs Immat Gran (auto) 0.05 H (0.00-0.03) X10*3/uL Absolute Neuts (auto) 6.4 (2.0-8.3) x10*3/uL Absolute Nucleated RBC 0.000 (0.0-0.012) X10*3/uL Nucleated RBC % (auto) 0.0 (0.0-0.2) /100WBC Sodium 140 (135-145) mmol/L Potassium 3.9 (3.3-5.1) mmol/L Chloride 109 H (96-108) mmol/L Carbon Dioxide 25 (22-29) mmol/L Anion Gap 10 L (12-20) BUN 13 (9-16) mg/dL Creatinine 0.74 (0.5-1.4) mg/dL Estim Creat Clear Calc 70.6 Estimated GFR > 60 Random Glucose 151 H (60-115) mg/dL Calcium 9.0 D (8.4-10.2) mg/dL Magnesium 1.7 (1.6-2.6) mg/dL Total Bilirubin 0.3 (0.0-1.0) mg/dL AST 20 (5-31) U/L ALT 16 (0-31) U/L Alkaline Phosphatase 89 (39-117) U/L Troponin I High Sens < 2.7 < 2.7 (<3.5-17.0) ng/L Total Protein 7.8 (6.5-8.0) g/dL Albumin 3.7 (3.5-5.0) g/dL Lipase 23 (8-78) U/L TSH 2.92 (0.32-4.0) uIU/mL Influenza Type A (PCR) NEGATIVE (Negative) Influenza Type B (PCR) NEGATIVE (Negative) RSV RNA Qual (PCR) NEGATIVE (Negative) SARS-CoV-2 RNA (RT-PCR) NEGATIVE (Negative) Independent Interpretation I performed an independent interpretation of an: EKG Interpretation: my independent interpretation of the patient's 12 EKG done on 10/18/2024 at 12:22 hours is as follows: Normal sinus rhythm rate of 86, normal WA interval, QRS duration QTC interval, no ST segment elevation, no ST segment depression, no PACs, no PVCs, no significant. Compared to EKG dated 04/25/2024 there is no significant change. Radiology Impression Discussion of test interpretation with radiology: I have reviewed the radiologist's reading. Radiologist Impression: Chest Radiographs, 2 views Comparison: 09/02/24 Findings: No cardiomegaly. Normal mediastinal contours. No pneumothorax. No opacity. No pleural effusion. Normal upper abdomen. No acute fracture. Impression: No acute findings. This document has been electronically signed by: Beth Broderick MD on 10/18/2024 13:55:00 Prescription Management I considered prescription management with: Pain Medication ( Ibuprofen and Tylenol) Chronic Conditions Patient?s care impacted by: Hypertension and Other ( pulmonary fibrosis) Discharge Plan Discharge Clinical Impression: Acute costochondritis Patient Disposition: Home, Self-Care Instructions: Costochondritis (ED) Additional Instructions: Your EKG was normal and unchanged from your previous EKG. Your chest x-ray was normal as well which is reassuring. Your blood work revealed no specific abnormalities to explain your pain. The marker for heart attack/heart damage is called troponin. You had no troponin your blood when you 1st got here and on your repeat test at least 4 hours later you had no troponin in your blood. This suggests that your pain is not caused by heart attack or heart damage which is also very reassuring. At this time I believe that your pain is caused by inflammation of the joints of your chest, this is called costochondritis. Take ibuprofen 400 mg pills, 1 pills every every 6 hours (3 times a day) for 4 days to reduce the inflammation in your chest then you can take it as needed for chest pain. You can also take extra-strength Tylenol 500 mg pills, 2 pills every 6 hours (3 times a day) as needed for pain. Continue taking all of your other medications as prescribed by your providers. Follow-up with your doctor in 2 days. Please return to the emergency department if your symptoms get worse or if you develop any symptoms that are concerning to you. Prescriptions: No Action tolterodine 4 mg capsule,extended release 24hr 4 mg PO DAILY Qty: 30 5RF cyclobenzaprine 5 mg tablet 5 mg PO TID PRN (Reason: muscle spasm) Qty: 10 0RF omeprazole 40 mg capsule,delayed release(DR/EC) 40 mg PO DAILY Qty: 30 1RF cranberry extract 425 mg capsule 425 mg PO BID Qty: 60 2RF Rx Instructions: administer with meals lidocaine 5 % adhesive patch,medicated 1 patch topical DAILY PRN Rx Instructions: leave on most painful area for up to 12 hrs Ozempic 0.25 mg or 0.5 mg (2 mg/3 mL) pen injector subcut Arnuity Ellipta 100 mcg/actuation blister with device inhalation DAILY dapagliflozin propanediol [Farxiga] 10 mg tablet 10 mg PO DAILY fenofibrate 54 mg tablet 54 mg PO DAILY valsartan 160 mg tablet 160 mg PO DAILY gabapentin 100 mg capsule 100 mg PO TID PRN levothyroxine 50 mcg tablet 50 mcg PO DAILY fluticasone propionate 50 mcg/actuation spray,suspension intranasal cetirizine 10 mg tablet 10 mg PO DAILY PRN (Reason: allergies) aspirin 81 mg tablet,delayed release (DR/EC) 81 mg PO QAM epinephrine 0.3 mg/0.3 mL auto-injector IM albuterol sulfate 2.5 mg /3 mL (0.083 %) solution for nebulization inhalation QID PRN Print Language: Hungarian
[2024-10-18 13:33] LABS: Influenza A PCR NEGATIVE (Negative); Influenza B PCR NEGATIVE (Negative); Resp Syncy Virus RNA Qual PCR NEGATIVE (Negative); SARS COV2 PCR INHOUSE NEGATIVE (Negative)
[2024-10-18 14:09] LABS: MANUAL DIFF FLAG NO
[2024-10-18 14:13] LABS: Basophils Percent Auto 0.3 % (0-2); Eosinophils Absolute Auto 0.3 X10*3/uL (0.0-0.4); Eosinophils Percent Auto 2.9 % (0-4); Hematocrit 38.1 % (37.0-47.0); Hemoglobin 13.2 g/dl (12.0-16.0); Imm Gran Abs Auto 0.05 X10*3/uL (0.00-0.03); Imm Gran Pct Auto 0.5 % (0.0-0.4); Lymphocytes Absolute Auto 2.8 X10*3/uL (1.2-4.9); Mean Corpuscular HGB Conc 34.6 g/dl (31.0-35.0); Mean Corpuscular Volume 83.7 fL (80.0-98.0); Mean Platelet Volume 9.7 fL (9.4-12.3); Monocytes Absolute Auto 0.8 X10*3/uL (0.1-1.2); Monocytes Percent Auto 7.6 % (2-11); Neutrophils Absolute Auto 6.4 x10*3/uL (2.0-8.3); Neutrophils Percent Auto 61.7 % (45-73); Platelet Count 234 X10*3/uL (160-400); Red Blood Count 4.55 X10*6/uL (4.20-5.50); Red Cell Distribution Width 13.7 % (11.0-16.0); White Blood Count 10.4 X10*3/uL (4.8-10.8)
[2024-10-18 14:28] LABS: Alanine Aminotransferase 16 U/L (0-31); Albumin Level 3.7 g/dL (3.5-5.0); Alkaline Phosphatase 89 U/L (39-117); Anion Gap 10 (12-20); Aspartate Amino Transferase 20 U/L (5-31); Bilirubin Total 0.3 mg/dL (0.0-1.0); Blood Urea Nitrogen 13 mg/dL (9-16); Carbon Dioxide 25 mmol/L (22-29); Chloride 109 mmol/L (96-108); Creatinine Clr Calc Pharmacy 70.6; Estimated Glomerular Filt Rate > 60; Glucose Random 151 mg/dL (60-115); Lipase 23 U/L (8-78); Magnesium 1.7 mg/dL (1.6-2.6); Potassium 3.9 mmol/L (3.3-5.1); Sodium 140 mmol/L (135-145); Total Protein 7.8 g/dL (6.5-8.0)
[2024-10-18 14:35] LABS: Troponin-I High Sensitivity < 2.7 ng/L (<3.5-17.0)
[2024-10-18 14:49] LABS: TSH reflex Free T4 2.92 uIU/mL (0.32-4.0)
[2024-10-18 15:20] VITALS: BP 155/76; PULSE 79; RESP 16; O2SAT 98
[2024-10-18 16:10] VITALS: BP 141/82; PULSE 73; RESP 14
[2024-10-18] MEDS: Ibuprofen 400 MG TABLET PO (16:17)
[2024-10-18 16:37] LABS: Troponin-I High Sensitivity < 2.7 ng/L (<3.5-17.0)
[2024-10-18 18:50] VITALS: BP 137/87; PULSE 76; RESP 16; TEMP 36.9; O2SAT 96
== END 2024-10-18 18:51 | disposition home or self-care (01) ==
PROVIDERS: Physician Assistant Medical; Emergency Provider Emergency Medicine Emergency Medical Services; PCP Family Medicine
DX: M94.0 Chondrocostal junction syndrome [Tietze] (principal); R07.9 Chest pain, unspecified; Z03.818 Encounter for observation for suspected exposure to other biological agents ruled out
CPT/HCPCS: 0241U; 36415; 71046; 80053; 83690; 83735; 84443; 84484; 85025; 93005; 99283; 99284

== ENCOUNTER → 2024-10-18 12:20 | Outpatient (BNV) | payer OTHER, SELFPAY | PROVIDERS: Emergency Provider Emergency Medicine Emergency Medical Services; PCP Family Medicine; Visit Provider Internal Medicine Cardiovascular Disease | DX: R07.9 Chest pain, unspecified (principal) | CPT/HCPCS: 93010 ==

== ENCOUNTER → 2024-10-18 12:36 | Outpatient (BNV) | payer OTHER, SELFPAY | PROVIDERS: PCP Family Medicine; Visit Provider Radiology Diagnostic Radiology | DX: R07.9 Chest pain, unspecified (principal) | CPT/HCPCS: 71046 ==

== ENCOUNTER 2024-10-26 16:25 | Outpatient (REF) | payer OTHER, SELFPAY ==
[2024-10-26 16:41] LABS: Appearance Urine Clear; Color Urine Yellow; Glucose Urine UA 100 mg/dL (Negative); Leukocyte Esterase Urine Large (3+) (Negative); Nitrite Urine Negative (Negative); UMIC TRIGGER UACC YES; Urine Blood Small (1+) (Negative); Urine Ketones Negative (Negative); Urine Protein Negative (Neg-Trace)
[2024-10-26 16:50] LABS: Bacteria Urine 1+ (None Seen); Hyaline Casts Urine 0-2 /LPF (0-2); RBC Urine 0-2 /HPF (0-2); UACC Culture Trigger YES; WBC Urine 0-5 /HPF (0-5)
--- OUTSIDE RECORDS SUMMARY | 2024-10-26 18:03 | XMS_ITS | Encounter Summary ---
Author Organization [employer] Address [address] [facility] 7t [place] [address] Care Team Providers Care Press Puller Name Role Phone Vivien Ohara MD Primary Care Provider [phone] Reason for Visit * Reason Comments Med Refill Encounter Details Date Type Department Care Team ([facility] st Contact Info) Description 10/21/2024 Refill [facility] [address] [place], [place] [phone] Vivien Ohara MD [address] [place], [place] [phone] Type 2 diabetes mellitus without complication, without long-term current use of insulin ([facility]); Fibromyalgia Social History Tobacco Use Types Packs/Day Years [...] Care Team (Late st Contact Info) Description 11/09/2024 3:00 PM EDT Clinical Support [facility] [address] [place] [address] documented as of this encounter Visit Diagnoses Diagnosis Type 2 diabetes mellitus without complication, without long-term current use of insulin ([facility]) Fibromyalgia Unspecified myalgia and myositis documented in this encounter Additional Health Concerns Assessment Noted Time PHQ-9 Depression Total Score: 0 03/14/20 23 1:40 PM EDT documented as of this encounter Care Teams Press Puller Relationship Specialty Start Date End Date Vivien Ohara MD [address] [place] [address] PCP - General Family Medicine 08/19/23 documented as of this encounter
--- OUTSIDE RECORDS SUMMARY | 2024-10-26 18:03 | XMS_ITS | Encounter Summary ---
Author Organization [employer] Address [address] [facility] [address] 7t [place] [address] Care Team Providers Care Visitor Services Assistant Name Role Phone Vivien Ohara MD Primary Care Provider [phone] Reason for Visit * Reason Comments Med Refill Encounter Details Date Type Department Care Team ([facility] st Contact Info) Description 11/06/2023 Refill [facility] [address] [place] [address] Amanda Moreno MD [address] [place] [address] Social History Tobacco Use Types Packs/Day Years [...] Description 11/09/2024 3:00 PM EDT Clinical Support [facility] [address] [place] [address] documented as of this encounter Visit Diagnoses Not on filedocumented in this encounter Additional Health Concerns Assessment Noted Time PHQ-9 Depression Total Score: 0 03/14/20 23 1:40 PM EDT documented as of this encounter Care Teams Visitor Services Assistant Relationship Specialty Start Date End Date Vivien Ohara MD [address] [place] [address] PCP - General Family Medicine 08/19/23 documented as of this encounter
--- OUTSIDE RECORDS SUMMARY | 2024-10-26 18:03 | XMS_ITS | Encounter Summary ---
Author Organization [employer] Address [address] [place] [address] [place] [address] Care Team Providers Care It Senior Analyst Name Role Phone Kandi Vanessa Primary Care Provider [phone] Lakeisha Yadav NP Primary Care Provider [phone] Vivien Ohara MD Primary Care Provider [phone] Reason for Visit * Reason Onset Date Comments Results 08/03/2022 Encounter Details Date Type Department Care Team (Late st Contact Info) Description 08/03/2022 Telephone [facility] [address] [place] [address] Kandi Vanessa FNP [address] [place] [address] Dept [place] [address] Results Social History Tobacco Use Types Packs/Day [...] Description 11/09/2024 3:00 PM EDT Clinical Support [facility] [address] [place] [address] documented as of this encounter Visit Diagnoses Not on filedocumented in this encounter Care Teams It Senior Analyst Relationship Specialty Start Date End Date Kandi Vanessa FNP PCP - General Family Medicine 03/07/22 05/02/23 Lakeisha Yadav NP [address] [place] [address] PCP - General Family Medicine 05/03/23 08/18/23 Vivien Ohara MD [address] [place] [address] PCP - General Family Medicine 08/19/23 documented as of this encounter
--- OUTSIDE RECORDS SUMMARY | 2024-10-26 18:03 | XMS_ITS | Encounter Summary ---
Author Organization [employer] Address [address] [place] [address] 7 [place] [address] Care Team Providers Care Manager Urology Name Role Phone Vivien Ohara MD Primary Care Provider [phone] Reason for Referral * Consultation (Routine) - Pending Review Specialty Diagnoses / Procedures Referred By Contac t Referred To Contact Pharmacy Diagnoses Type 2 diabetes mellitus without complication, without long-term current use of insulin (CMS/HCC) Hypertension, unspecified type Vivien Ohara MD [address] [place] [address] Phone: tel: fax: Referral ID Status Reason Start Date Expiration Date Visits Requested Visits Authorized [id number] Pending Review Continuity of Care 04/29/2024 04/29/2025 6 6 Encounter Details Date Type Department Care Team (Late st Contact Info) Description 04/29/2024 Orders Only [facility] [address] [place] [address] Vivien Ohara MD [address] [place], [place] [phone] Type 2 diabetes mellitus without complication, without [...] Description 11/09/2024 3:00 PM EDT Clinical Support [address] [address] Scheduled Referrals Name Type Priority Associated Diagnoses Orde r Schedule Referral to Pharmacy [facility] Outpatient Referral Routine Type 2 diabetes mellitus without complication, without long-term current use of insulin ([facility]) Hypertension, unspecified type Ordered: 04/29/2024 documented as of this encounter Visit Diagnoses Diagnosis Type 2 diabetes mellitus without complication, without long-term current use of insulin ([facility])- Primary Hypertension, unspecified type documented in this encounter Additional Health Concerns Assessment Noted Time PHQ-9 Depression Total Score: 0 03/14/20 23 1:40 PM EDT documented as of this encounter Care Teams Manager Urology Relationship Specialty Start Date End Date Vivien Ohara MD [address] [place] [address] PCP - General Family Medicine 08/19/23 documented as of this encounter
--- OUTSIDE RECORDS SUMMARY | 2024-10-26 18:03 | XMS_ITS | Encounter Summary ---
Author Organization [employer] Address [address] [facility] 7 [place] [address] Care Team Providers Care Human Resource Officer Name Role Phone Vivien Ohara MD Primary Care Provider [phone] Reason for Visit * Reason Comments Med Refill Encounter Details Date Type Department Care Team ([facility] st Contact Info) Description 05/14/2024 Refill [facility] [address] [place] [address] Vivien Ohara MD [address] [place] [address] Mild intermittent asthma with acute exacerbation Social [...] Description 11/09/2024 3:00 PM EDT Clinical Support [facility] [address] [place] [address] documented as of this encounter Visit Diagnoses Diagnosis Mild intermittent asthma with acute exacerbation documented in this encounter Additional Health Concerns Assessment Noted Time PHQ-9 Depression Total Score: 0 03/14/20 23 1:40 PM EDT documented as of this encounter Care Teams Human Resource Officer Relationship Specialty Start Date End Date Vivien Ohara MD [address] [place] [address] PCP - General Family Medicine 08/19/23 documented as of this encounter
--- OUTSIDE RECORDS SUMMARY | 2024-10-26 18:03 | XMS_ITS | Encounter Summary ---
Author Organization [employer] Address [address] [facility] 7 [place] [address] Care Team Providers Care Rotary Swaging Machine Operator Name Role Phone Kandi Vanessa Ciera NORTONP Primary Care Provider [phone] Lakeisha Yadav NP Primary Care Provider [phone] Vivien Ohara MD Primary Care Provider [phone] Reason for Visit * Reason Comments Med Refill Encounter Details Date Type Department Care Team (Late st Contact Info) Description 08/14/2022 Refill [facility] [address] [place], [place] [phone] Hailey Gomez MD 230 [place] [address] Cough in adult Social History Tobacco Use [...] Description 11/09/2024 3:00 PM EDT Clinical Support [facility] [address] [place] [address] documented as of this encounter Visit Diagnoses Diagnosis Cough in adult documented in this encounter Care Teams Rotary Swaging Machine Operator Relationship Specialty Start Date End Date Kandi Vanessa FNP PCP - General Family Medicine 03/07/22 05/02/23 Lakeisha Yadav NP [address] [place] [address] PCP - General Family Medicine 05/03/23 08/18/23 Vivien Ohara MD [address] [place] [address] PCP - General Family Medicine 08/19/23 documented as of this encounter
--- OUTSIDE RECORDS SUMMARY | 2024-10-26 18:03 | XMS_ITS | Encounter Summary ---
Author Organization [employer] Address [address] [facility] 7 [place] [address] Care Team Providers Care Mechanical Maintenance Engineer Name Role Phone Vivien Ohara MD Primary Care Provider [phone] Reason for Visit * Reason Comments Med Refill Encounter Details Date Type Department Care Team ([facility] st Contact Info) Description 05/04/2024 Refill [facility] [address] [place] [address] Vivien Ohara MD [address] [place] [address] Social History Tobacco Use Types Packs/Day Years [...] Description 11/09/2024 3:00 PM EDT Clinical Support [facility] [address] [place] [address] documented as of this encounter Visit Diagnoses Not on filedocumented in this encounter Additional Health Concerns Assessment Noted Time PHQ-9 Depression Total Score: 0 03/14/20 23 1:40 PM EDT documented as of this encounter Care Teams Mechanical Maintenance Engineer Relationship Specialty Start Date End Date Vivien Ohara MD [address] [place] [address] PCP - General Family Medicine 08/19/23 documented as of this encounter
--- OUTSIDE RECORDS SUMMARY | 2024-10-26 18:03 | XMS_ITS | Encounter Summary ---
Author Organization [employer] Address [address] [facility] 7t [place] [address] Care Team Providers Care Phlebotomy Tech Name Role Phone Lakeisha Yadav NP Primary Care Provider [phone] Vivien Ohara MD Primary Care Provider [phone] Reason for Visit * Reason Comments Med Refill Encounter Details Date Type Department Care Team ([facility] st Contact Info) Description 08/17/2023 Refill [facility] [address] [place] [address] Name, MD Dylon [address] [place] [address] Mild intermittent asthma with acute exacerbation Social [...] Description 11/09/2024 3:00 PM EDT Clinical Support [facility] [address] [place] [address] documented as of this encounter Visit Diagnoses Diagnosis Mild intermittent asthma with acute exacerbation documented in this encounter Additional Health Concerns Assessment Noted Time PHQ-9 Depression Total Score: 0 03/14/20 23 1:40 PM EDT documented as of this encounter Care Teams Phlebotomy Tech Relationship Specialty Start Date End Date Lakeisha Yadav NP [address] [place] [address] PCP - General Family Medicine 05/03/23 08/18/23 Vivien Ohara MD [address] [place] [address] PCP - General Family Medicine 08/19/23 documented as of this encounter
--- OUTSIDE RECORDS SUMMARY | 2024-10-26 18:03 | XMS_ITS | Encounter Summary ---
Author Organization [employer] Address [address] [facility] [address] 7[address] [place] [address] Care Team Providers Care Christmas Tree Farmer Name Role Phone Vivien Ohara MD Primary Care Provider Encounter Details Date Type Department Care Team (Latest Contact Info) Description 10/26/2024 Travel Social History Tobacco Use Types Packs/Day Years [...] Answer Date Recorded Patient Health Questionnaire-9 Score 13 10/26/2024 Patient Health Questionnaire-9 Score 13 10/26/2024 Last PHQ-9: Questionnaire Data Not on file 0 10/26/2024 Housing Stability Answer Date Recorded What is [...] Answer Date Recorded Patient Health Questionnaire-2 Score 2 10/26/2024 Internet Access Answer Date Recorded Internet Access [...] Description 11/09/2024 3:00 PM EDT Clinical Support [facility] [address] [place] [address] documented as of this encounter Visit Diagnoses Not on filedocumented in this encounter Additional Health Concerns Assessment Noted Time PHQ-9 Depression Total Score: 13 025 12:01 PM EDT documented as of this encounter Care Teams Christmas Tree Farmer Relationship Specialty Start Date End Date Vivien Ohara MD [address] [place] [address] PCP - General Family Medicine 08/19/23 documented as of this encounter
--- OUTSIDE RECORDS SUMMARY | 2024-10-26 18:03 | XMS_ITS | Encounter Summary ---
Author Organization [employer] Address [address] [facility] 7 [place] [address] Care Team Providers Care Sheep Shearer Name Role Phone Vivien Ohara MD Primary Care Provider [phone] Reason for Visit * Reason Onset Date Comments chart prep 10/21/2024 Encounter Details Date Type Department Care Team ([facility] st Contact Info) Description 10/21/2024 Telephone [facility] [address] [place] [address] Vivien Ohara MD [address] [place] [address] chart prep Social History Tobacco Use Types Packs/Day Years [...] encounter Miscellaneous Notes * Telephone Encounter - Li Hirsch [place] - 10/21/2024 1:57 PM EDT ..Chart Prep Labs: not applicable Images: not applicable Vaccines due: Covid Due and Flu Due Referrals: Completed Screenings: Colonoscopy , PAP, and Foot Exam Overdue care gaps: PQ9, Disability , and Oral Health documented in this encounter Plan of Treatment Upcoming Encounters Date Type Department Care Team (Late st Contact Info) Description 11/09/2024 3:00 PM EDT Clinical Support [facility] [address] [place] [address] documented as of this encounter Visit Diagnoses Not on filedocumented in this encounter Additional Health Concerns Assessment Noted Time PHQ-9 Depression Total Score: 0 03/14/20 23 1:40 PM EDT documented as of this encounter Care Teams Sheep Shearer Relationship Specialty Start Date End Date Vivien Ohara MD [address] [place] [address] PCP - General Family Medicine 08/19/23 documented as of this encounter
--- OUTSIDE RECORDS SUMMARY | 2024-10-26 18:03 | XMS_ITS | Clinical Summary ---
Author Organization [employer] Address [address] [place] [address] Care Team Providers Care Customer Account Administrator Name Role Phone Vivien Ohara MD Primary Care Provider [phone] Allergies Active Allergy Reactions Criticality Noted Date Comments Sulfamethoxazole-Trimethoprim 2022 Penicillins Rash Low 01/25/2012 Sulfa Antibiotics Anaphylaxis High 07/20/2022 Trimethoprim Rash Low 04/25/2024 Medications clobetasol (Temovate) 0.05 % ointment Apply topically. 013 Active montelukast (Singulair) 10 MG tablet Take 1 tablet by mouth at bed time. 016 Active polyethylene glycol, PEG, 3350 (Miralax) 17 g packet MIX 1 PACKET IN 4-8 OUNCES OF WATER AND DRINK ONCE DAILY 022 Active Stool Softener/Laxativ e 50-8.6 MG tablet Take 1 tablet by mouth in the morning. 022 Active Blood Glucose Monitoring Suppl (ONE TOUCH ULTRA 2) w/Device kit 1 each 3 times daily. 1 kit 023 Active FreeStyle lancets 1 each by Other route 3 times daily. TEST BLOOD SUGAR THREE TIMES DAILY DIRECTED 100 each 11 023 Active Blood Glucose Monitoring Suppl (FreeStyle Alder Lite) w/Device kit TEST BLOOD SUGAR THREE TIMES DAILY DIRECTED 1 kit 023 Active Diclofenac Sodium 1 % gel APPLY [...] pads USE EVERY DAY 100 each 11 Active EPINEPHrine (Epipen) 0.3 MG/0.3ML injection syringe [...] DAILY NEEDED 48 g 1 024 Active fluticasone furoate (Arnuity Ellipta) 100 MCG/ACT inhalerIndicatio ns:Mild intermittent asthma with acute exacerbation INHALE 1 PUFF BY MOUTH EVERY DAY AT THE SAME TIME RINSE MOUTH AFTER USING 30 each 3 025 Active omeprazole (PriLOSEC) [address] capsule TAKE 1 CAPSULE BY MOUTH EVERY DAY 90 capsule 1 025 Active levothyroxine (Synthroid, Levoxyl) 50 MCG tabletIndication s:Multinodular goiter TAKE 1 TABLET BY MOUTH EVERY DAY 90 tablet 1 02/12/2 025 Active fenofibrate (Tricor) 54 MG tablet TAKE 1 TABLET BY MOUTH ONCE DAILY IN THE MORNING 90 tablet Active aspirin (Aspirin Low Dose) 81 MG EC tabletIndication s:Primary hypertension TAKE 1 TABLET BY MOUTH ONCE DAILY IN THE MORNING 90 tablet Active TRUEplus Lancets 33G miscIndications: Type 2 diabetes mellitus without complication, without long-term current use of insulin ([facility]) TEST BLOOD SUGAR THREE TIMES DAILY DIRECTED 100 each Active FREESTYLE LITE test stripIndications :Type 2 diabetes mellitus without complication, without long-term current use of insulin ([facility]) TEST BLOOD SUGAR THREE TIMES DAILY DIRECTED 100 strip Active gabapentin (Neurontin) 100 MG capsuleIndicatio ns:Fibromyalgia TAKE 2 CAPSULES BY MOUTH EVERY 8 HOURS 180 capsule Active Ozempic, 0.25 or 0.5 MG/DOSE, 2 MG/3ML solution pen-injectorIndi cations:Type 2 diabetes mellitus without complication, without long-term current use of insulin ([facility]) INJECT 0.25 MG SUBCUTANEOUSLY EVERY 7 DAYS IN THE ABDOMEN, THIGHS OR UPPER ARM. ROTATE INJECTION SITES. 3 mL Active Farxiga 10 MG Take 1 tablet by mouth Once per day. Active metFORMIN XR (Glucophage-XR) 500 MG 24 hr tablet Take 500 mg by mouth 2 times daily. Active amLODIPine (Norvasc) 5 MG tablet Take 1 tablet (5 mg) by mouth Once per day. 90 tablet 3 025 2025 Active cholecalciferol (Vitamin D-3) 25 MCG (1000 UT) capsule Take 1 capsule (25 mcg) by mouth Once per day. 90 capsule 3 Active cetirizine (ZyrTEC) 10 MG tabletIndication s:Seasonal allergic rhinitis, unspecified trigger Take 1 tablet (10 mg) by mouth Once per day. 90 tablet 1 Active cholecalciferol (Vitamin D-3) 25 MCG (1000 UT) capsule Take 1 capsule by mouth in the morning. 022 2024 Discontinued( Reorder (will not trigger notification to Pharmacy)) omeprazole (PriLOSEC) [address] capsuleIndicatio ns:Heartburn TAKE 1 CAPSULE BY MOUTH BEFORE BREAKFAST. DO NOT BREAK, CRUSH, DISSOLVE OR CHEW. 90 capsule 023 2024 Discontinued( Duplicate order (will not trigger notification to Pharmacy)) glucose blood (FREESTYLE LITE) test stripIndications :Type 2 diabetes mellitus without complication, without long-term current use of insulin ([facility]) TEST BLOOD SUGAR THREE TIMES DAILY DIRECTED 100 each 5 024 2024 Discontinued TRUEplus Lancets 33G miscIndications: Type 2 diabetes mellitus without complication, without long-term current use of insulin ([facility]) TEST BLOOD SUGAR THREE TIMES DAILY DIRECTED 100 each 5 024 2024 Discontinued metFORMIN, OSM, (Fortamet) 1000 MG 24 hr tablet Take 1 tablet (1,000 mg) by mouth with breakfast and with evening meal. Do not crush, chew, or split. 180 tablet 3 024 2024 Discontinued( Duplicate order (will not trigger notification to Pharmacy)) Ozempic, 0.25 or 0.5 MG/DOSE, 2 MG/3ML solution pen-injectorIndi cations:Type 2 diabetes mellitus without complication, without long-term current use of insulin ([facility]) INJECT 0.25 MG SUBCUTANEOUSLY EVERY 7 DAYS IN THE ABDOMEN, THIGHS OR UPPER ARM. ROTATE INJECTION SITES. 3 mL 1 024 2024 Discontinued gabapentin (Neurontin) 100 MG capsuleIndicatio ns:Fibromyalgia TAKE 2 CAPSULES BY MOUTH EVERY 8 HOURS 180 capsule 2 024 2024 Discontinued cetirizine (ZyrTEC) 10 MG tabletIndication s:Seasonal allergic rhinitis, unspecified trigger TAKE 1 TABLET BY MOUTH EVERY DAY NEEDED FOR ALLERGY OR RUNNY NOSE 90 tablet 1 025 2024 Discontinued( Reorder (will not trigger notification to Pharmacy)) Active Problems Problem Noted Date Diagnosed Date [...] urge urinary incontinence 01/15 Assessment & Plan (10/26/2024 8:44 AM EDT): - previously seen by [facility] Urologist -was recommended bladder suspension surgery -pt has both stress and urge incontinence -will refer back to Urologist -discussed about possible side effects including urinary problem with new medication for type 2 diabetes and pt verbalize understanding Assessment & Plan (05/13/2024 1:54 PM EDT): - previously seen by [facility] Urologist -was recommended bladder suspension surgery -pt has both stress and urge incontinence -will refer back to Urologist -discussed about possible side effects including urinary problem with new medication for type 2 diabetes and pt verbalize understanding Assessment & Plan (01/16/2024 11:23 AM EDT): - previously seen by [facility] Urologist -was recommended bladder suspension surgery -pt has both stress and urge incontinence -will refer back to Urologist -discussed about possible side effects including urinary problem with new medication for type 2 diabetes and pt verbalize understanding Gastroesophageal reflux disease 10/06/2023 Assessment & Plan (10/26/2024 8:43 AM EDT): - continue omeprazole Assessment & Plan (01/16/2024 8:53 AM EDT): - continue omeprazole Assessment & Plan (10/06/2023 5:09 PM EDT): - continue omeprazole Sensorineural hearing loss (SNHL) of both ears 0 10/06/2023 Assessment & Plan (10/26/2024 8:44 AM EDT): - refer to audiology per patient's request Assessment & Plan (01/16/2024 8:54 AM EDT): - refer to audiology per patient's request Assessment & Plan (10/06/2023 5:36 PM EDT): - refer to audiology per patient's request Hypothyroidism 10/01/2023 Assessment & Plan (10/26/2024 8:44 AM EDT): - current replacement: levothyroxine 50 mcg daily - last TSH 3.60 in January 2022 - recheck lab and adjust dose accordingly Assessment & Plan (05/13/2024 1:55 PM EDT): [...] TDap/Td: 03/02/2011, states she had repeat in [place]. No records. Will task MA to try and locate [place] records Foot exam/peripheral pulses: WNL 05/07 on 03/14/23 EFREM/ARB: Lisinopril 20 mg Statin: none Assessment & Plan (10/26/2024 12:36 PM EDT): - Dx in January 2023 - A1C 6.8% on 09/22/24, slight improvement from 7.2% on 05/13/24 - continue working on lifestyle modifications - patient switched back to metformin 1000 mg once daily and sometimes twice daily, patient is interested in starting GLP1-RA, will start GLP1-RA. - treatment history: patient tried farxiga briefly. Patient has relative contraindications, mainly urinary symptoms. - food exam: 10/26/24 - eye exam: referred again to [facility] eye care - microalbumin: Apr 2022, mild microalbuminuria - lipid profile: Apr 2024 TG 200; TC 180; LDL 95; HDL 45 - follow up in 3-4 mo or sooner prn Assessment & Plan (05/17/2024 1:14 PM EDT): [...] visit - eye exam: referred again to [facility] eye care - microalbumin: Apr 2022, [...] numbness - eye exam: referred again to [facility] eye care - microalbumin: Apr 2022, [...] numbness - eye exam: referred again to [facility] eye care - microalbumin: Apr 2022, [...] johnson. Allergic rhinitis 01/10/2015 Assessment & Plan (10/26/2024 12:55 PM EDT): - continue cetirizine 10 mg tablets, montelukast, and Fluticasone nasal (Flonase) - check RAST or referral to allergy / landing support specialist Assessment & Plan (10/06/2023 5:02 PM EDT): - continue cetirizine, montelukast, and Fluticasone nasal (Flonase) - check RAST or referral to allergy / landing support specialist Dyslipidemia 10/31/2012 Assessment & Plan (01/16/2024 [...] to PT Asthma 1960 Assessment & Plan (10/26/2024 8:43 AM EDT): - continue mometasone (Asmanex) as maintenance - continue montelukast - continue albuterol neb and HFA prn Assessment & Plan (05/13/2024 1:54 PM EDT): [...] on RA. Hypertension 1960 Assessment & Plan (10/26/2024 12:37 PM EDT): -Goal BP < 140/90 per [...] 3-6 mo, sooner if any problem arises - Prescribed Amlodipine 5 mg 10/26/24 Assessment & Plan (06/04/2024 3:10 PM EST): [...] 1:54 PM EDT): - [place] [facility] [place], ordered by previous PCP - report recommends in-lab for titration study or auto-PAP 6-20 cm H2O - script for AutoPAP was written in September 2023, will check up on that Assessment & Plan (01/16/2024 11:20 AM EDT): - [place] [facility] [place], ordered by previous PCP - report recommends in-lab for titration study or auto-PAP 6-20 cm H2O - script for AutoPAP was written in September 2023, will check up on that Assessment & Plan (10/06/2023 4:49 PM EDT): - [place] [facility] [place], ordered by previous PCP [...] Encounters Date Type Department Care Team Description 10/26/2024 11:30 AM EDT Office Visit [facility] [address] [place] [address] [phone] Vivien Ohara MD Obstructive sleep apnea syndrome (Primary Dx); Mild intermittent asthma without complication; Hypertension, unspecified type; Gastroesophageal reflux disease, unspecified whether esophagitis present; Mixed stress and urge urinary incontinence; Type 2 diabetes mellitus without complication, without long-term current use of insulin ([facility]); Hypothyroidism, unspecified type; Dyslipidemia; Sensorineural hearing loss (SNHL) of both ears; Seasonal allergic rhinitis, unspecified trigger; Malodorous urine 10/26/2024 Travel 10/26/[address] [facility] [address] [place] [address] [phone] Vivien Ohara MD Type 2 diabetes mellitus without complication, without long-term current use of insulin (CMS/HCC) 10/21/[address] [facility] [address] [place] [address] [phone] Vivien Ohara MD chart prep 10/21/[address] [facility] [address] [place] [address] [phone] Vivien Ohara MD Type 2 diabetes mellitus without complication, without long-term current use of insulin (CMS/HCC); Fibromyalgia 10/18/2024 Orders Only GENERIC EXTERNAL DATA DEPARTMENT Provider, Generic External Data 10/17/[address] [facility] [address] [place] [address] [phone] Vivien Ohara MD Type 2 diabetes mellitus without complication, without long-term current use of insulin (CMS/HCC) 09/22/2024 1:20 PM EST Office Visit [facility] [address] [place] [address] [phone] Oksana Ernst ANP Dysuria (Primary Dx); Gastroesophageal reflux disease, unspecified whether esophagitis present; Vaginal itching; Type 2 diabetes mellitus with hyperlipidemia (CMS/HCC) (CMS/HCC) 09/09/[address] [facility] [address] [place] [address] [phone] Oksana Ernst ANP Primary hypertension 09/09/2024 Refill [facility] [address], [place] [phone] Vivien Ohara MD Seasonal allergic rhinitis, unspecified trigger; Multinodular goiter; Primary hypertension 09/03/[address] [facility] [address] [place] [address] [phone] Yuval Henry MD 09/01/2024 6:00 PM EST Office Visit [facility] [address] [place] [address] [phone] Yuval Henry MD Subacute cough 08/10/[address] [facility] [address] [place] [address] Vivien Ohara MD 08/08/[address] [facility] [address] [place] [address] Vivien Ohara MD Mild intermittent asthma with [...] Sign Reading Time Taken Comments Blood Pressure 163/87 10/26/2024 11:39 AM EDT Pulse 78 10/26/2024 11:39 AM EDT Temperature 36.3 ??C (97.3 ??F) 10/26/2024 1 1:39 AM EDT Respiratory Rate 18 10/26/2024 11:3 9 AM EDT Oxygen Saturation 97% 10/26/2024 11: 39 AM EDT Inhaled Oxygen Concentration - - Weight 87.5 kg (192 lb 12.8 oz) 025 11:39 AM EDT Height 147.3 cm (4' 10 ) 10/26/2024 11: 39 AM EDT Body Mass Index 40.3 10/26/2024 11:39 AM EDT Plan of Treatment Upcoming Encounters Date Type Department Care Team (Late st Contact Info) Description 11/09/2024 3:00 PM EDT Clinical Support [address] [phone] Health Maintenance Due Date Last Done Comments [...] 2019 Diabetes: Urine Protein Screening 05/01/2023 05/01/2022 Diabetes: Foot Exam 03/14/2024 03/14/2023, COVID-19 Vaccine ( season) 2024 Influenza Vaccine (#1) 2024 05/25/2013 SDOH Screening 09/23/2024 09/23/2023 Alcohol/Substance Use Screening 01/15/2025 01/16/2024 Diabetes: Hemoglobin A1C 03/22/2025 025, 05/13/2024, 01/16/2024, Additional history exists Depression Monitoring (PHQ-9) 04/27/2025 10/26/2024, 10/26/2024 Lipid Panel 05/13/2025 05/13/2024, 05/04/2022 Tobacco Screening 09/22/2025 09/22/2024 Depression Screening 10/26/2025 10/26/2024, 10/27/19 Mammogram 01/06/2026 01/07/2024 Eye Exam 04/30/2026 04/30/2024, 10/09/2023, 04/30/2024, Additional history exists DTaP/Tdap/Td Vaccines (3 [...] INFLUENZA B (ID NOW RAPID MOLECULAR) Routine 10/26/2024 1:07 PM EDT Obstructive sleep apnea syndrome POCT INFLUENZA A (ID NOW RAPID MOLECULAR) Routine 10/26/2024 1:07 PM EDT Obstructive sleep apnea syndrome POC CHAPA ID NOW STREP A Routine 10/26/2024 12:28 PM EDT Obstructive sleep apnea syndrome POCT RAPID COVID ANTIGEN Routine 10/26/2024 12:28 PM EDT Obstructive sleep apnea syndrome URINALYSIS, COMPLETE, WITH REFLEX TO CULTURE Routine 10/26/2024 12:00 AM EDT Malodorous urine HIGH SENSITIVITY TROPONIN I Routine 10/18/2024 4:10 PM EDT TSH W/REFLEX TO FT4 Routine 10/18/2024 2 :03 PM EDT HIGH SENSITIVITY TROPONIN I Routine 10/18/2024 2:03 PM EDT LIPASE Routine 10/18/2024 2:03 PM EDT MAGNESIUM Routine 10/18/2024 2:03 PM EDT COMPREHENSIVE METABOLIC PANEL Routine 10/18/2024 2:03 PM EDT CBC WITH AUTO DIFFERENTIAL Routine 10/18/2024 2:03 PM EDT XR CHEST 2 VIEWS Routine 10/18/2024 1:55 PM EDT SARS COV2/INFLUENZA A/B AND RSV RNA QL NAAT Routine 10/18/2024 12:50 PM EDT POCT GLUCOSE Routine 09/22/2024 3:10 PM EST Type 2 diabetes mellitus with hyperlipidemia ([facility]/HCC) ([facility]) POCT GLYCATED HEMOGLOBIN, TOTAL Routine 09/22/2024 3:10 PM EST Type 2 diabetes mellitus with hyperlipidemia ([facility]/HCC) ([facility]) URINALYSIS, COMPLETE Routine 09/22/2024 1:52 [...] complication, without long-term current use of insulin ([facility]) Hypertension, unspecified type BI MAMMOGRAM SCREENING TOMOSYNTHESIS BILATERAL Routine 01/07/2024 12:55 PM EDT ALBUMIN, RANDOM URINE W/CREATININE Routine 05/01/2022 4:14 PM EDT from Last 3 Months or Most Recently Relevant to Health Maintenance Results * POCT Rapid Influenza B CHAPA ID NOW (10/26/2024 1:07 PM EDT) Only the most recent of2 resultswithin the time period is included. Pathologist [facility] Influenza B Negative Negative, Indeterminate [facility] QC Media Lot # [id number] [facility] Lot# Expiration Date [facility] Swab 10/26/2024 1:07 PM EDT Vivien Ohara MD POINT OF CARE TEST ENTER/EDIT OR DERABLES Final Result Performing Organization Address [facility]/ZIP Co de Phone Number [facility] [address] [place] [address] [phone] * POCT Rapid Influenza A CHAPA ID NOW (10/26/2024 1:07 PM EDT) Only the most recent of2 resultswithin the time period is included. [facility] Influenza A Negative Negative, Indeterminate [facility] QC Media Lot # [id number] [facility] Lot# Expiration Date [facility] Swab 10/26/2024 1:07 PM EDT Vivien Ohara MD POINT OF CARE TEST ENTER/EDIT OR DERABLES Final Result Performing Organization Address City/[facility]/ZIP Co de Phone Number [facility] [address] [place] [address] [phone] * POCT Rapid Strep A CHAPA ID NOW (10/26/2024 12:28 PM EDT) Pathologist [facility] Rapid Strep A Screen Negative Negative, None Detected QC Media Lot # [id number] Lot# Expiration Date Swab 10/26/2024 12:2 8 PM EDT Vivien Ohara MD POINT OF CARE TEST ENTER/EDIT OR DERABLES Final Result * POCT Rapid Covid-19 BinaxNOW (10/26/2024 12:28 PM EDT) Only the most recent of2 resultswithin the time period is included. Rapid COVID Ag Negative [facility] Media Lot # [id number] Lot# Expiration Date [id number] Swab 10/26/2024 12:2 8 PM EDT Vivien Ohara MD POINT OF CARE TEST ENTER/EDIT OR DERABLES Final Result * (ABNORMAL) Urinalysis, Complete, with Reflex to Culture (10/26/2024 12:00 AM EDT) [facility] Color Urine Yellow [facility] Appearance Urine Clear [facility] PH 6.0 5.0 - 9.0 [facility] Glucose Urine UA 100(A) Negative mg/dL [facility] Urine Blood Small (1+)(A) Negative [facility] Specific [place] - Urine 1.010 1.005 - 1.025 [facility] Urine Protein Negative Neg-Trace mg/dL [facility] Urine Ketones Negative Negative mg/dL [facility] Nitrite Urine Negative Negative [facility] Leukocyte Esterase Urine Large (3+)(A) Negative [facility] RBC Urine 0-2 0 - 2 /HPF [facility] Urine WBC 0-5 0 - 5 /HPF [facility] Urine Squamous Epithelial Cell 6-10 0 - 2 /HPF [facility] Urine Bacteria 1+ None Seen [facility] Hyaline Casts, Urine 0-2 0 - 2 /LPF [facility] Urine 10/26/2024 10/26/2024 Narrative [facility] - 10/26/2024 4:50 PM EDT Urine, Clean Catch Vivien Ohara MD LAB URINE ORDERABLES Final Resul t [facility] [address] [place] [address] [phone] * High Sensitivity Troponin I (10/18/2024 4:10 PM EDT) Only the most recent of2 resultswithin the time period is included. [facility] TROPONIN I HIGH SENSITIVITY <2.7 <3.5 - 17.0 ng/L [facility] Comment:The [place] high sens itivity Troponin-I results should beused in conjunction with other diagnostic information suchas ECG, clinical observations and information, and patientsymptoms to aid in the diagnosis of [place]. 10/18/2024 4:10 PM EDT 10/18/2024 4:13 PM EDT Generic External Data Provider LAB BLOOD ORDERAB LES Final Result Performing Organization Address [facility]/ZIP Co de Phone Number [facility] [address] [place] [address] [phone] * TSH with Reflex to Free T4 (10/18/2024 2:03 PM EDT) [facility] TSH reflex Free T4 2.92 0.32 - 4.0 uIU/mL [facility] 10/18/2024 2:03 PM EDT 10/18/2024 2:08 PM EDT Generic External Data Provider LAB BLOOD ORDERAB LES Final Result Performing Organization Address City/[facility]/ZIP Co de Phone Number [facility] [address] [place] [address] [phone] * (ABNORMAL) CBC auto differential (10/18/2024 2:03 PM EDT) [facility] White Blood Count 10.4 4.8 - 10.8 X10*3/uL [facility] Red Blood Count 4.55 4.20 - 5.50 X10*6/uL [facility] Hemoglobin 13.2 12.0 - 16.0 g/dl [facility] Hematocrit 38.1 37.0 - 47.0 % [facility] Mean Corpuscular Volume 83.7 80.0 - 98.0 fL [facility] Mean Corpuscular Hemoglobin 29.0 27.0 - 33.0 pg [facility] Mean Corpuscular HGB Conc 34.6 31.0 - 35.0 g/dl [facility] Red Cell Distribution Width 13.7 11.0 - 16.0 % [facility] Platelet Count 234 160 - 400 X10*3/uL [facility] Mean Platelet Volume 9.7 9.4 - 12.3 fL [facility] Neutrophils Percent Auto 61.7 45 - 73 % [facility] Imm Gran Pct Auto 0.5(H) 0.0 - 0.4 % [facility] Lymphocytes Percent Auto 27.0 20 - 40 % [facility] Monocytes Percent Auto 7.6 2 - 11 % [facility] Eosinophils Percent Auto 2.9 0 - 4 % [facility] Basophils Percent Auto 0.3 0 - 2 % [facility] NRBC Pct Auto 0.0 0.0 - 0.2 /100WBC [facility] Neutrophils Absolute Auto 6.4 2.0 - 8.3 x10*3/uL [facility] Imm Gran Abs Auto 0.05(H) 0.00 - 0.03 X10*3/uL [facility] Lymphocytes Absolute Auto 2.8 1.2 - 4.9 X10*3/uL [facility] Monocytes Absolute Auto 0.8 0.1 - 1.2 X10*3/uL [facility] Eosinophils Absolute Auto 0.3 0.0 - 0.4 X10*3/uL [facility] Basophils Absolute Auto 0.0 0.0 - 0.2 X10*3/uL [facility] NRBC Abs Auto 0.000 0.0 - 0.012 X10*3/uL [facility] 10/18/2024 2:03 PM EDT 10/18/2024 2:08 PM EDT us Generic External Data Provider LAB BLOOD ORDERAB LES Final Result Performing Organization Address [facility]/ZIP Co de Phone Number [facility] [address] [place] [phone] * Magnesium (10/18/2024 2:03 PM EDT) [facility] Magnesium 1.7 1.6 - 2.6 mg/dL [facility] 10/18/2024 2:03 PM EDT 10/18/2024 2:08 PM EDT us Generic External Data Provider LAB BLOOD ORDERAB LES Final Result Performing Organization Address [facility] Co de Phone Number [facility] [address] [place] [address] [phone] * Lipase (10/18/2024 2:03 PM EDT) [facility] Lipase 23 8 - 78 U/L [facility] 10/18/2024 2:03 PM EDT 10/18/2024 2:08 PM EDT us Generic External Data Provider LAB BLOOD ORDERAB LES Final Result Performing Organization Address [facility] Co de Phone Number [facility] [address] [place] [address] [phone] * (ABNORMAL) Comprehensive Metabolic Panel (10/18/2024 2:03 PM EDT) [facility] Sodium 140 135 - 145 mmol/L [facility] Potassium 3.9 3.3 - 5.1 mmol/L [facility] Chloride 109(H) 96 - 108 mmol/L [facility] Carbon Dioxide 25 22 - 29 mmol/L [facility] Anion Gap 10(L) 12 - 20 [facility] Urea Nitrogen (BUN) 13 9 - 16 mg/dL [facility] Creatinine, Serum 0.74 0.5 - 1.4 mg/dL [facility] Creatinine Clr Calc Pharmacy 70.6 [facility] Comment:Provided height and weight: 147.32 cm,86.2 kg.eGFR (calculated from the MDRD study equation) and eCrCl(calculated from the Cockcroft-Gault equation) are based ondifferent parameters and may not yield comparable results.If eCrCl result is absurd, please check patient'sheight/weight. Estimated Glomerular Filt Rate >60 [facility] Comment:Chronic Kidney Disea se: Estimated GFR < 60 mL/min/1.13r2Dtaqti Kidney Disease: Estimated GFR < 15 mL/min/1.73m2 Glucose 151(H) 60 - 115 mg/dL [facility] Calcium 9.0 8.4 - 10.2 mg/dL [facility] Bilirubin, Total 0.3 0.0 - 1.0 mg/dL [facility] Aspartate Amino Transferase 20 5 - 31 U/L [facility] Alanine Aminotransferase 16 0 - 31 U/L [facility] Total Protein 7.8 6.5 - 8.0 g/dL [facility] Albumin Level 3.7 3.5 - 5.0 g/dL [facility] Alkaline Phosphatase 89 39 - 117 U/L [facility] 10/18/2024 2:03 PM EDT 10/18/2024 2:08 PM EDT us Generic External Data Provider LAB BLOOD ORDERAB LES Final Result Performing Organization Address City/State/[facility] Co de Phone Number [facility] [address] [place] [address] [phone] * XR Chest 2 Views (10/18/2024 1:55 PM EDT) Only the most recent of2 resultswithin the time period is included. Anatomical Region Laterality Modality Chest Radiographic Diana ging 10/18/2024 1:55 PM EDT Narrative 10/18/2024 1:56 PM EDT ? [facility] ?[address] ?[place] [address] ?XRay Report ? Signed ? Patient: Deleon,Lia ?MR#: [id number] ?? 910 ? : 1960 ?Acct:[id number] ? Age/Sex: 64 / F ?ADM Date: 10/18/24 ? Loc: HO.ED ? Attending Dr: ? Ordering Physician: Ligia Dale ?? Date of Service: 10/18/24 ?? Procedure(s): XR chest 2V ?? Accession Number(s): [id number] ? cc: Ligia Dale; Vivien Ohara MD ? CLINICAL HISTORY: left sided chest pain ? Chest Radiographs, 2 views ? Comparison: 09/02/24 ? Findings: ?? No cardiomegaly. ?? Normal mediastinal contours. ?? No pneumothorax. No opacity. No pleural effusion. ?? Normal upper abdomen. ?? No acute fracture. ? Impression: ?? No acute findings. ? This document has been electronically signed by: Beth Broderick MD ?? on 10/18/2024 13:55:00 ? Dictated By: ?Beth Adams MD ? Signed By: ?<Electronically signed by Beth Adams MD in OV> ? 10/18/24 1355 ? DD/ 1355 ? TD/TT: 10/18/24 1355 ? Psychological Operations Specialist: ? Procedure Note Donchristalkjbonnieter, Image - 10/18/[address] [address] XRay Report Signed Patient: Nathanael Deleon#: [id number] 910 : 9Acct:[id number] Age/Sex: 64 / FADM Date: 10/18/24 Loc: HO.ED Attending Dr: Ordering Physician: Ligia Dale Date of Service: 10/18/24 Procedure(s): XR chest 2V Accession Number(s): [id number] cc: Ligia Dale; Vivien Ohara MD CLINICAL HISTORY: left sided chest pain Chest Radiographs, 2 views Comparison: 09/02/24 Findings: No cardiomegaly. Normal mediastinal contours. No pneumothorax. No opacity. No pleural effusion. Normal upper abdomen. No acute fracture. Impression: No acute findings. This document has been electronically signed by: Beth Broderick MD on 10/18/2024 13:55:00 Dictated By: Beth Admas MD Signed By: <Electronically signed by Beth Adams MD in OV> 10/18/241354 DD/ 54 TD/TT: 10/18/241354 Psychological Operations Specialist: [facility] External Provider IMG XR PROCEDURES Edited Result - Final * SARS-CoV-2 RNA, Influenza A/B, and RSV RNA, Ql NAAT (10/18/2024 12:50 PM EDT) Influenza A PCR NEGATIVE Negative [facility] Influenza B PCR NEGATIVE Negative [facility] Resp Syncy Virus RNA Qual PCR NEGATIVE Negative [facility] SARS COV2 PCR NEGATIVE Negative [facility] Comment:All test results mus t be correlated with clinical findings.Negative results do not preclude SARS-CoV2, influenza Avirus, influenza B virus and/or RSV infectionand should not be used as the sole basis for treatment orother patient management decisions. Negative results must becombined with clinical observations, patient history, andepidemiological information.This test has not been evaluated for monitoring treatment ofinfection.This test has been authorized by the FDA under an EmergencyUse Authorization (EUA) for use by authorized laboratories.Testing performed on the [employer] GeneXpert utilizingreal-time RT-PCR.All SARS CoV2 and positive influenza A/B results arereported to [facility]. 10/18/2024 12:5 0 PM EDT 10/18/2024 12:53 PM EDT Generic External Data Provider LAB MICROBIOLOGY - GENERAL ORDERABLES Final Result [facility] [address] [place] [phone] * (ABNORMAL) POCT HGB A1C (09/22/2024 3:10 PM EST) Hemoglobin A1C 6.8(A) 4.0 - 6.0 % Blood 09/22/2024 3:10 PM EST Oksana Ernst ANP POINT OF CARE TEST ENTER/EDIT OR DERABLES Final Result * POCT Glucose (09/22/2024 3:10 PM EST) Pathologist [facility] Glucose Blood, POC 128 60 - 200 mg/dL Blood Capillary blood specimen / Unknown 09/22/2024 3:10 PM EST [facility] Ernst ANP POINT OF CARE TEST ENTER/EDIT OR DERABLES Final Result * Bacterial Vaginosis Panel (09/22/2024 1:52 PM EST) [facility] TRICHOMONAS VAGINALIS DETECTION BY PCR NOT DETECTED Not Detect [facility] BACTERIAL VAGINOSIS DETECTION BY PCR NEGATIVE Negative [facility] Comment:The BV organism targ ets of [...] DETECTION BY PCR NOT DETECTED Not Detect [facility] Delaney glab krusei PCR NOT DETECTED Not Detect [facility] Swab Vaginal structure / Unknown 09/22/2024 1:52 PM EST 09/22/2024 4:10 PM EST Oksana Ernst [facility] LAB MICROBIOLOGY - GENERAL ORDER HALINA Final Result [facility] [address] [place] [phone] * (ABNORMAL) Urinalysis Complete (09/22/2024 1:52 PM EST) Pathologist [facility] Color Urine Yellow [facility] Appearance Urine Clear [facility] PH 6.5 5.0 - 9.0 [facility] Glucose Urine UA Negative Negative mg/dL [facility] Urine Blood Small (1+)(A) Negative [facility] Specific [place] - Urine 1.010 1.005 - 1.025 [facility] Urine Protein Negative Neg-Trace mg/dL [facility] Urine Ketones Negative Negative mg/dL [facility] Nitrite Urine Negative Negative [facility] Leukocyte Esterase Urine Large (3+)(A) Negative [facility] RBC Urine 3-5(A) 0 - 2 /HPF [facility] Urine WBC >50(A) 0 - 5 /HPF [facility] Urine Squamous Epithelial Cell 11-20 0 - 2 /HPF [facility] Urine Bacteria 1+ None Seen [facility] Hyaline Casts, Urine 0-2 0 - 2 /LPF [facility] Urine (Urine, Random) 09/22/2024 1:52 PM EST 09/22/2024 4:10 PM EST Oksana Ernst ANP LAB URINE ORDERABLES Final Resul t Performing Organization Address City/[facility]/ZIP Co de Phone Number [facility] [address] [place] [phone] * Culture, Urine, Routine (09/22/2024 1:52 PM EST) Urine Urine specimen obtained by clean catch procedure / Unknown 09/22/2024 1:52 PM EST 09/22/2024 4:10 PM EST Comment:UACC Narrative [facility] - 09/24/2024 9:53 AM EST Urine Culture No growth. Specimen Source: Urine clean catch Oksana Ernst ANP LAB MICROBIOLOGY - GENERAL ORDER HALINA Final Result Performing Organization Address City/[facility] Co de Phone Number [facility] [address] [place] [phone] * (ABNORMAL) Respiratory Viral Panel PCR (09/01/2024 12:00 AM EST) Adenovirus PCR Not Detected Not Detect. [facility] Bordetella pertussis PCR Not Detected Not Detect. [facility] Comment:Interpret results wi th caution. If B. pertussis isspecifically suspected, additional testing using analternate method is recommended. Bordetella parapertussis PCR Not Detected Not Detect. [facility] Chlamydia pneumoniae PCR Not Detected Not Detect. [facility] Coronavirus 229E PCR Not Detected Not Detect. [facility] Coronavirus HKU1 PCR Not Detected Not Detect. [facility] Coronavirus NL63 PCR Not Detected Not Detect. [facility] Coronavirus OC43 PCR Not Detected Not Detect. [facility] SARS-CoV-2 PCR Not Detected Not Detect. [facility] Comment:SARS-CoV-2 not detec bridger by real-time RT-PCR.Note: If clinical suspicion for Sars-CoV-2 is high, continueto maintain precautions and consider repeat testing.Test results should be interpreted in the context ofclinical findings and other laboratory data.Rare polymorphisms exist that could lead to false-negativeor false-positive results. If results do not match theclinical findings, additional testing should be considered.Results reported to [facility], [facility].This test has been authorized by the FDA under the EmergencyUse Authorization (EUA) for use by authorized laboratories. Influenza A PCR Detected(A) Not Detect. [facility] Influenza B PCR Not Detected Not Detect. [facility] Human metapneumovirus PCR Not Detected Not Detect. [facility] Rhino/Enterovirus PCR Not Detected Not Detect. [facility] Mycoplasma pneumoniae PCR Not Detected Not Detect. [facility] Parainfluenza 1 PCR Not Detected Not Detect. [facility] Parainfluenza 2 PCR Not Detected Not Detect. [facility] Parainfluenza 3 PCR Not Detected Not Detect. [facility] Parainfluenza 4 PCR Not Detected Not Detect. [facility] RSV PCR Not Detected Not Detect. [facility] Resp Panel NA Note See Note H [facility] Comment:All results must be correlated [...] assay is performed by Multiplexed PCR, utilizing [employer] Film Array. 09/01/2024 09/01/2024 us Yuval Herny MD LAB BLOOD ORDERABLES Final Resul t [facility] [address] [place] [phone] * (ABNORMAL) Lipid Panel with Reflex to Direct LDL (05/13/2024 11:00 AM EDT) Triglycerides 200(H) <150 mg/dL [facility] Comment:Desirable Triglyceri de: less than 150 mg/dLBorderline High Triglyceride 150-199 mg/dLHigh Triglyceride: 200-499 mg/dLVery High Triglyceride: greater than or equal to 5OO mg/dL Cholesterol 180 <200 mg/dL [facility] Comment:Desirable Cholestero l: less than 200 mg/dLBorderline High Cholesterol: 200-239 mg/dLHigh Cholesterol: greater than 239 mg/dL LDL Cholesterol Calculated 95 <100 mg/dL [facility] Comment:Desirable LDL: less than 100 mg/dLNear Optimal/Above Optimal LDL: 110- 129 mg/dLBorderline High LDL: 130-159 mg/dLHigh LDL: 160-189 mg/dLVery High LDL: greater than or equal to 190 mg/dL HDL Cholesterol 45 >40 mg/dL [facility] Comment:Desirable HDL: great er than 40 mg/dL Note: This HDL assay may give artificially low results in patients with liver disease. Blood 05/13/2024 11:0 0 AM EDT 05/13/2024 11:37 AM EDT us Vivien Ohara MD LAB BLOOD ORDERABLES Final Resul t [facility] [address] [facility] [place] [phone] * BI Mammogram Screening Tomosynthesis Bilateral (01/07/2024 12:55 PM EDT) Anatomical Region Laterality Modality Breast Bilateral Mammography 01/07/2024 12:5 5 PM EDT Narrative 02/06/2024 9:41 AM EDT ? [facility] ? [address] ?[place] [address] ? Mammography Report ? Signed ? Patient: Deleon,Lia ?MR#: [id number] ?? 910 ? : 1960 ?Acct:[id number] ? Age/Sex: 63 / F ?ADM Date: 01/07/24 ? Loc: HO.MAMMO ? Attending Dr: Vivien Ohara MD ? Ordering Physician: Vivien Ohara MD ?Results: 1Negative ? Date of Service: 01/07/24 ?Follow Up: 1 Year From Orig ?? inal Mammogram ? Procedure(s): MM tomosynthesis screening BI ?? Accession Number(s): [id number] ? cc: Vivien Ohara MD ? EXAMINATION: [...] 0937 ? DD/ 1255 ? TD/TT: ? Psychological Operations Specialist: ? Procedure Note Ariela Arzola - 02/06/2024 [facility] [address] [place] [address] [place] [address] Mammography Report Signed Patient: Nathanael Deleon#: [id number] 910 : 9Acct:[id number] Age/Sex: 63 / FADM Date: 01/07/24 Loc: BECK Attending Dr: Vivien Ohara MD Ordering Physician: Vivien Oharaesults: 1Negative Date of Service: 01/07/24Follow Up: 1 Year From Orig inal Mammogram Procedure(s): MM tomosynthesis screening BI Accession Number(s): [id number] cc: Vivien Ohara MD EXAMINATION: MM SCREENING [...] in OV> 02/06/24 0937 DD/ 1255 TD/TT: Psychological Operations Specialist: Vivien Ohara MD [facility] BI PROCEDURES Final Result * (ABNORMAL) ALBUMIN, [...] LABS 05/01/2022 4:14 PM EDT Kandi Vanessa [employer] LAB URINE ORDERABLES Final Result [facility] from Last 3 Months or Most Recently Relevant to Health Maintenance Insurance [facility] Care Teams Customer Account Administrator Relationship Specialty Start Date End Date Vivien Ohara MD [address] [place] [address] PCP - General Family Medicine 08/19/23
--- OUTSIDE RECORDS SUMMARY | 2024-10-26 18:03 | XMS_ITS | Encounter Summary ---
Author Organization [employer] Address [address] [place] [address] [address] [place] [address] Care Team Providers Care Lug Breaker And Wire Puller Name Role Phone Vivien Ohara MD Primary Care Provider [phone] Reason for Visit * Reason Comments Follow-up Encounter Details Date Type Department Care Team ([facility] st Contact Info) Description 10/26/2024 11:30 AM EDT Office Visit [facility] [address] [place] [address] Vivien Ohara MD [address] [place] [address] Obstructive sleep apnea syndrome (Primary Dx); Mild intermittent asthma without complication; Hypertension, unspecified type; Gastroesophageal reflux disease, unspecified whether esophagitis present; Mixed stress and urge urinary incontinence; Type 2 diabetes mellitus without complication, without long-term current use of insulin ([facility]); Hypothyroidism, unspecified type; Dyslipidemia; Sensorineural hearing loss (SNHL) of both ears; Seasonal allergic rhinitis, unspecified trigger; Malodorous urine Social History Tobacco Use Types Packs/Day Years [...] Weight 87.5 kg (192 lb 12.8 oz) 03/31/2 025 11:39 AM EDT Height 147.3 cm (4' 10 ) 10/26/2024 11: 39 AM EDT Body Mass Index 40.3 10/26/2024 11:39 AM EDT documented in this encounter Miscellaneous Notes * Assessment & Plan Note - Jesenia Blood [place] - 10/26/2024 12:55 PM EDT Associated Problem(s): Allergic rhinitis - continue cetirizine 10 mg tablets, montelukast, and Fluticasone nasal (Flonase) - check RAST or referral to allergy / satellite specialist * Assessment & Plan Note - Jesenia Blood [place] - 10/26/2024 8:44 AM EDTAssociated Problem(s): Sensorineural hearing loss (SNHL) of both ears - refer to audiology per patient's request * Assessment & Plan Note - Jesenia Blood [place] - 10/26/2024 8:44 AM EDTAssociated Problem(s): Type 2 diabetes mellitus ([facility]) - Dx in January 2023 - A1C [...] 10/26/24 - eye exam: referred again to [facility] eye care - microalbumin: Apr 2022, mild microalbuminuria - lipid profile: Apr 2024 TG 200; TC 180; LDL 95; HDL 45 - follow up in 3-4 mo or sooner prn * Assessment & Plan Note - Jesenia Blood [place] - 10/26/2024 8:44 AM EDTAssociated Problem(s): Hypothyroidism - current replacement: levothyroxine 50 mcg daily - last TSH 3.60 in January 2022 - recheck lab and adjust dose accordingly * Assessment & Plan Note - Jesenia Blood [place] - 10/26/2024 8:44 AM EDTAssociated Problem(s): Mixed stress and urge urinary incontinence - previously seen by [facility] Urologist -was recommended bladder suspension surgery -pt has both stress and urge incontinence -will refer back to Urologist -discussed about possible side effects including urinary problem with new medication for type 2 diabetes and pt verbalize understanding * Assessment & Plan Note - Jesenia Blood [place] - 10/26/2024 8:43 AM EDTAssociated Problem(s): Gastroesophageal reflux disease - continue omeprazole * Assessment & Plan Note - Jesenia Blood [place] - 10/26/2024 8:43 AM EDTAssociated Problem(s): Hypertension -Goal BP < 140/90 per JNC-8 and [...] arises - Prescribed Amlodipine 5 mg 10/26/24 * Assessment & Plan Note - Jesenia Blood [place] - 10/26/2024 8:43 AM EDTAssociated Problem(s): Asthma - continue mometasone (Asmanex) as maintenance - continue montelukast - continue albuterol neb and HFA prn documented in this encounter Plan of Treatment Upcoming Encounters Date Type Department Care Team (Late st Contact Info) Description 11/09/2024 3:00 PM EDT Clinical Support [address] [address] documented as of this encounter Procedures Procedure [...] Routine 10/26/2024 12:00 AM EDT Malodorous urine documented in this encounter Results * POCT Rapid Influenza B CHAPA ID NOW (10/26/2024 1:07 PM EDT) Influenza B Negative Negative, Indeterminate [facility] QC Media Lot # [id number] [facility] Lot# Expiration Date [facility] Swab 10/26/2024 1:07 PM EDT Vivien Ohara MD POINT OF CARE TEST ENTER/EDIT OR DERABLES Final Result Performing Organization Address [facility] Co de Phone Number [facility] [address] [place] [phone] * POCT Rapid Influenza A CHAPA ID NOW (10/26/2024 1:07 PM EDT) [facility] Influenza A Negative Negative, Indeterminate [facility] QC Media Lot # [id number] [facility] Lot# Expiration Date [facility] Swab 10/26/2024 1:07 PM EDT Vivien Ohara MD POINT OF CARE TEST ENTER/EDIT OR DERABLES Final Result Performing Organization Address [facility] Co de Phone Number [facility] [address] [place] [phone] * POCT Rapid Strep A CHAPA ID NOW (10/26/2024 12:28 PM EDT) [facility] Rapid Strep A Screen Negative Negative, None Detected QC Media Lot # [id number] Lot# Expiration Date Swab 10/26/2024 12:2 8 PM EDT Vivien Ohara MD POINT OF CARE TEST ENTER/EDIT OR DERABLES Final Result * POCT Rapid Covid-19 BinaxNOW (10/26/2024 12:28 PM EDT) [facility] Rapid COVID Ag Negative QC Media Lot # [id number] Lot# Expiration Date ,026 Swab 10/26/2024 12:2 8 PM EDT Vivien Ohara MD POINT OF CARE TEST ENTER/EDIT OR DERABLES Final Result * (ABNORMAL) Urinalysis, Complete, with Reflex to Culture (10/26/2024 12:00 AM EDT) Color Urine Yellow [facility] Appearance Urine Clear [facility] PH 6.0 5.0 - 9.0 [facility] Glucose Urine UA 100(A) Negative mg/dL [facility] Urine Blood Small (1+)(A) Negative [facility] Specific [place] - Urine 1.010 1.005 - 1.025 [facility] Urine Protein Negative Neg-Trace mg/dL [facility] Urine Ketones Negative Negative mg/dL [facility] Nitrite Urine Negative Negative [facility] Leukocyte Esterase Urine Large (3+)(A) Negative [facility] RBC Urine 0-2 0 - 2 /HPF [facility] Urine WBC 0-5 0 - 5 /HPF [facility] Urine Squamous Epithelial Cell 6-10 0 - 2 /HPF [facility] Urine Bacteria 1+ None Seen [facility] Hyaline Casts, Urine 0-2 0 - 2 /LPF [facility] Urine 10/26/2024 10/26/2024 Narrative [facility] - 10/26/2024 4:50 PM EDT Urine, Clean Catch us Vivien Ohara MD LAB URINE ORDERABLES Final Resul t [facility] [address] [place] [phone] documented in this encounter Visit Diagnoses Diagnosis Obstructive sleep apnea syndrome- Primary Obstructive sleep apnea (adult) (pediatric) Mild intermittent asthma without complication Hypertension, unspecified type Gastroesophageal reflux disease, unspecified whether esophagitis present Mixed stress and urge urinary incontinence Mixed incontinence urge and stress (male)(female) Type 2 diabetes mellitus without complication, without long-term current use of insulin ([facility]) Hypothyroidism, unspecified type Dyslipidemia Other and unspecified hyperlipidemia Sensorineural hearing loss (SNHL) of both ears Seasonal allergic rhinitis, unspecified trigger Malodorous urine documented in this encounter Additional Health Concerns Assessment Noted Time PHQ-9 Depression Total Score: 13 025 12:01 PM EDT documented as of this encounter Care Teams Lug Breaker And Wire Puller Relationship Specialty Start Date End Date Vivien Ohara MD [address] [place] [address] PCP - General Family Medicine 08/19/23 documented as of this encounter
--- OUTSIDE RECORDS SUMMARY | 2024-10-26 18:03 | XMS_ITS | Encounter Summary ---
Author Organization [employer] Address [address] [facility] 7 [place] [address] Care Team Providers Care Chemical Sprayer Name Role Phone Vivien Ohara MD Primary Care Provider [phone] Reason for Visit * Reason Comments Med Refill Encounter Details Date Type Department Care Team ([facility] st Contact Info) Description 10/26/2024 Refill [facility] [address] [place] [address] Vivien Ohara MD [address] [place] [address] Type 2 diabetes mellitus without complication, without long-term current use of insulin ([facility]) Social History Tobacco Use Types [...] Description 11/09/2024 3:00 PM EDT Clinical Support [facility] [address] [place] [address] documented as of this encounter Visit Diagnoses Diagnosis Type 2 diabetes mellitus without complication, without long-term current use of insulin ([facility]) documented in this encounter Additional Health Concerns Assessment Noted Time PHQ-9 Depression Total Score: 13 025 12:01 PM EDT documented as of this encounter Care Teams Chemical Sprayer Relationship Specialty Start Date End Date Vivien Ohara MD [address] [place] [address] PCP - General Family Medicine 08/19/23 documented as of this encounter
--- OUTSIDE RECORDS SUMMARY | 2024-10-26 18:04 | XMS_ITS | Encounter Summary ---
Author Organization [employer] Address [address] [facility] [address] [place] [address] Care Team Providers Care Viscosity Tester Name Role Phone Vivien Ohara MD Primary Care Provider [phone] Reason for Visit * Reason Onset Date Comments Med Refill 03/10/2024 Encounter Details Date Type Department Care Team (Late st Contact Info) Description 03/10/2024 Refill [facility] [address] [place] [address] Vivien Ohara MD [address] [place] [address] Primary osteoarthritis involving multiple joints Social History [...] Description 11/09/2024 3:00 PM EDT Clinical Support [facility] [address] [place] [address] documented as of this encounter Visit Diagnoses Diagnosis Primary osteoarthritis involving multiple joints documented in this encounter Additional Health Concerns Assessment Noted Time PHQ-9 Depression Total Score: 0 03/14/20 23 1:40 PM EDT documented as of this encounter Care Teams Viscosity Tester Relationship Specialty Start Date End Date Vivien Ohara MD [address] [place] [address] PCP - General Family Medicine 08/19/23 documented as of this encounter
== END 2024-10-26 16:26 | disposition home or self-care (01) ==
LOC: HO.HHCLNP 16:25
PROVIDERS: Visit Provider Family Medicine
DX: R82.90 Unspecified abnormal findings in urine (principal)
CPT/HCPCS: 81001; 87086

== ENCOUNTER 2024-11-23 14:04 | Outpatient (REF) | payer OTHER, SELFPAY ==
[2024-11-23 17:15] LABS: Urine Cytology See Pathology rpt
--- OUTSIDE RECORDS SUMMARY | 2024-11-23 17:36 | XMS_ITS | Encounter Summary ---
Author Organization [employer] Address [address] [facility] 7t [place] [address] Care Team Providers Care Certified Surgical Assistant Name Role Phone Vivien Ohara MD Primary Care Provider Reason for Visit * Reason Comments Med Refill Encounter Details Date Type Department Care Team ([facility] Contact Info) Description 05/04/2024 Refill [facility] [address] [place], [place] [phone] Vivien Ohara MD [address] [place], [place] [phone] Social History Tobacco Use Types Packs/Day Years [...] Description 02/01/2025 3:00 PM EDT Office Visit [facility] [address] [place] [address] Vivien Ohara MD [address] [place] [address] documented as of this encounter Visit Diagnoses Not on filedocumented in this encounter Additional Health Concerns Assessment Noted Time PHQ-9 Depression Total Score: 0 03/14/20 23 1:40 PM EDT documented as of this encounter Care Teams Certified Surgical Assistant Relationship Specialty Start Date End Date Vivien Ohara MD [address] [place] [address] PCP - General Family Medicine 08/19/23 documented as of this encounter
--- OUTSIDE RECORDS SUMMARY | 2024-11-23 17:36 | XMS_ITS | Encounter Summary ---
Author Organization [employer] Address [address] [facility] 7t [place] [address] Care Team Providers Care Basketball Coach Name Role Phone Kandi Vanessa Ciera NORTONP Primary Care Provider [phone] Lakeisha Yadav NP Primary Care Provider [phone] Vivien Ohara MD Primary Care Provider [phone] Reason for Visit * Reason Comments Med Refill Encounter Details Date Type Department Care Team ([facility] Contact Info) Description 08/14/2022 Refill [facility] [address] [place] [address] Hailey Gomez MD [address] [place] [address] Cough in adult Social History Tobacco Use [...] Upcoming Encounters Date Type Department Care Team ([facility] Contact Info) Description 02/01/2025 3:00 PM EDT Office Visit [facility] [place] [address] [place] [address] documented as of this encounter Visit Diagnoses Diagnosis Cough in adult documented in this encounter Care Teams Basketball Coach Relationship Specialty Start Date End Date Kandi Vanessa FNP PCP - General Family Medicine 03/07/22 05/02/23 [place] [address] PCP - General Family Medicine 05/03/23 08/18/23 [place] [address] PCP - General Family Medicine 08/19/23 documented as of this encounter
--- OUTSIDE RECORDS SUMMARY | 2024-11-23 17:36 | XMS_ITS | Encounter Summary ---
Author Organization [employer] Address [address] [facility] 7t [place] [address] Care Team Providers Care Facilities Maintenance Engineer Name Role Phone Vivien Ohara MD Primary Care Provider [phone] Reason for Visit * Reason Onset Date Comments Med Refill 03/10/2024 Encounter Details Date Type Department Care Team ([facility] Contact Info) Description 03/10/2024 Refill [facility] [address] [place], [place] [phone] Vivien Ohara MD [address] [place], [place] [phone] Primary osteoarthritis involving multiple joints Social History [...] Description 02/01/2025 3:00 PM EDT Office Visit [facility] [address] [place] [address] Vivien Ohara MD [address] [place] [address] documented as of this encounter Visit Diagnoses Diagnosis Primary osteoarthritis involving multiple joints documented in this encounter Additional Health Concerns Assessment Noted Time PHQ-9 Depression Total Score: 0 03/14/20 23 1:40 PM EDT documented as of this encounter Care Teams Facilities Maintenance Engineer Relationship Specialty Start Date End Date Vivien Ohara MD [address] [place] [address] PCP - General Family Medicine 08/19/23 documented as of this encounter
--- OUTSIDE RECORDS SUMMARY | 2024-11-23 17:36 | XMS_ITS | Encounter Summary ---
Author Organization [employer] Address [address] [place] [address] [address] [place] [address] Care Team Providers Care Manager Clinical Applications Name Role Phone Vivien Ohara MD Primary Care Provider [phone] Reason for Referral * Consultation (Routine) - Closed Specialty Diagnoses / Procedures Referred By Contac t Referred To Contact Pharmacy Diagnoses Type 2 diabetes mellitus without complication, without long-term current use of insulin (CMS/HCC) Hypertension, unspecified type Vivien Ohara MD [address] [place] [address] Phone: tel: fax: Referral ID Status Reason Start Date Expiration Date V isits Requested Visits Authorized [id number] Closed Continuity of Care 04/29/2024 04/29/2025 6 6 Encounter Details Date Type Department Care Team (Late st Contact Info) Description 04/29/2024 Orders Only [facility] [address] [place], [place] [phone] Vivien Ohara MD [address], [place] [phone] Type 2 diabetes mellitus without complication, without [...] Description 02/01/2025 3:00 PM EDT Office Visit [facility] [address] [place], [place] [phone] Vivien Ohara MD [address] [place] [address] Scheduled Referrals Name Type Priority Associated Diagnoses Orde r Schedule Referral to Pharmacy [place] Outpatient Referral Routine Type 2 diabetes mellitus without complication, without long-term current use of insulin ([facility]) Hypertension, unspecified type Ordered: 04/29/2024 documented as of this encounter Visit Diagnoses Diagnosis Type 2 diabetes mellitus without complication, without long-term current use of insulin ([facility])- Primary Hypertension, unspecified type documented in this encounter Additional Health Concerns Assessment Noted Time PHQ-9 Depression Total Score: 0 03/14/20 23 1:40 PM EDT documented as of this encounter Care Teams Manager Clinical Applications Relationship Specialty Start Date End Date Vivien Ohara MD [address] [place] [address] PCP - General Family Medicine 08/19/23 documented as of this encounter
--- OUTSIDE RECORDS SUMMARY | 2024-11-23 17:36 | XMS_ITS | Clinical Summary ---
Author Organization [employer] Address [address] [place] [address] Care Team Providers Care Horse Buyer Name Role Phone Vivien Ohara MD Primary Care Provider [phone] Allergies Active Allergy Reactions Criticality Noted Date [...] 023 Active Blood Glucose Monitoring Suppl (FreeStyle Lemhi Lite) w/Device kit TEST BLOOD SUGAR THREE [...] complication, without long-term current use of insulin (CMS/[facility]) TEST BLOOD SUGAR THREE [...] complication, without long-term current use of insulin (CMS/[facility]) INJECT 0.25 MG SUBCUTANEOUSLY EVERY [...] without long-term current use of insulin ([facility]) INJECT 0.25 MG SUBCUTANEOUSLY EVERY [...] 8:44 AM EDT): - [facility] [...] TDap/Td: 03/02/2011, states she had repeat in [place]. No records. Will task MA to try and locate [place] records Foot exam/peripheral pulses: WNL 05/07 on [...] - foot exam: 10/26/24 - eye exam: [facility] eye care Apr 2024, no diabetic [...] visit - eye exam: referred again to [facility] eye care - microalbumin: [...] numbness - eye exam: referred again to [facility] eye care - microalbumin: [...] numbness - eye exam: referred again to [facility] eye care - microalbumin: Apr 2022, mild microalbuminuria - lipid profile: Apr 2022 - follow up in 3-4 mo or sooner prn Assessment & Plan (04/25/2023 11:21 PM EDT): Refer dental [place] will contact about eye care centers that accept [facility] Increase Metformin dose Refer Nutrition [...] check RAST or referral to allergy / allergy and immunology specialist Assessment & Plan (10/06/2023 5:02 PM EDT): - continue cetirizine, montelukast, and Fluticasone nasal (Flonase) - check RAST or referral to allergy / allergy and immunology specialist Dyslipidemia 10/31/2012 Assessment & Plan (10/26/2024 [...] (10/29/2024 10:08 AM EDT): - followed by wildlife conservation professor, Dr. Awad, [facility], last seen on 10/15/24 - continue mometasone [...] 10:07 AM EDT): - sleep study at [facility] on 03/06/23 - report recommends in-lab for titration study or auto-PAP 6-20 cm H2O - script for AutoPAP was written in September 2023, still does not have one - recently seen by wildlife conservation professor, and re-ordered sleep study / CPAP Assessment & Plan (05/13/2024 1:54 PM EDT): - sleep study at [facility] on 03/06/23, ordered by previous PCP - report recommends in-lab for titration study or auto-PAP 6-20 cm H2O - script for AutoPAP was written in September 2023, will check up on that Assessment & Plan (01/16/2024 11:20 AM EDT): - sleep study at [facility] on 03/06/23, ordered by previous PCP - report recommends in-lab for titration study or auto-PAP 6-20 cm H2O - script for AutoPAP was written in September 2023, will check up on that Assessment & Plan (10/06/2023 4:49 PM EDT): - sleep study at [facility] on 03/06/23, ordered by previous PCP - [...] Description 11/09/2024 3:00 PM EDT Clinical Support [facility] [address] [place] [address] Mendy Treadwell RN Hypertension, unspecified type 11/09/2024 Travel 11/09/[address] [facility] [address] [place], [place] [phone] Vivien Ohara MD Seasonal allergic rhinitis, unspecified trigger 10/29/[address] [address] Vivien Ohara MD 10/27/2024 Orders Only [address] [address] Vivien Ohara MD 10/26/2024 11:30 AM EDT Office Visit [address] [address] Vivien Ohara MD Obstructive sleep apnea syndrome (Primary Dx); Mild intermittent asthma without complication; Hypertension, unspecified type; Gastroesophageal reflux disease, unspecified whether esophagitis present; Mixed stress and urge urinary incontinence; Type 2 diabetes mellitus without complication, without long-term current use of insulin ([facility]); Hypothyroidism, unspecified type; Dyslipidemia; Sensorineural hearing loss (SNHL) of both ears; Seasonal allergic rhinitis, unspecified trigger; Malodorous urine; Dietary counseling; Exercise counseling; Class 3 severe obesity with serious comorbidity and body mass index (BMI) of 40.0 to 44.9 in adult, unspecified obesity type (CMS/HCC); Multilevel degenerative disc disease; Fibromyalgia 10/26/[address] [facility] [address] [place] [phone] Vivien Ohara MD 10/26/2024 Travel 10/26/[address] [facility] [address] [place] [address] Vivien Ohara MD Type 2 diabetes mellitus without complication, without long-term current use of insulin ([facility]) 10/21/[address] [facility] [address] [place] [phone] Vivien Ohara MD chart prep 10/21/[address] [facility] [address] [place] [phone] Vivien Ohara MD Type 2 diabetes mellitus without complication, without long-term current use of insulin (CMS/[facility]); Fibromyalgia 10/18/2024 Orders Only GENERIC EXTERNAL DATA DEPARTMENT Provider, Generic External Data 10/17/[address] [facility] [address] [place] [phone] Vivien Ohara MD Type 2 diabetes mellitus without complication, without long-term current use of insulin (CMS/[facility]) 09/22/2024 1:20 PM EST Office Visit [facility] [address] [place] [phone] Oksana Ernst ANP Dysuria (Primary Dx); Gastroesophageal reflux disease, unspecified whether esophagitis present; Vaginal itching; Type 2 diabetes mellitus with hyperlipidemia (CMS/[facility]) ([facility]) 09/09/[address] [facility] [address] [place] [phone] Oksana Ernst ANP Primary hypertension 09/09/[address] [facility] [address] [place] [address] Vivien Ohara MD Seasonal allergic rhinitis, unspecified trigger; Multinodular goiter; Primary hypertension 09/03/[address] [facility] [address] [place] [phone] Yuval Henry MD 09/01/2024 6:00 PM EST Office Visit [facility] [address] [place] [phone] Yuval Henry MD Subacute cough from Last [...] 02/01/2025 3:00 PM EDT Office Visit [facility] [address] [place] [phone] Vivien Ohara MD [address] [place] [address] Health Maintenance Due Date Last Done Comments [...] EST Type 2 diabetes mellitus with hyperlipidemia ([facility]) ([facility]) URINALYSIS, COMPLETE Routine [...] without long-term current use of insulin ([facility]) Hypertension, unspecified type [...] is included. Influenza B Negative Negative, Indeterminate [facility] QC Media Lot # [id number] [facility] Lot# Expiration Date [facility] Swab 10/26/2024 1:07 PM EDT Vivien Ohara MD POINT OF CARE TEST ENTER/EDIT OR DERABLES Final Result Performing Organization Address [facility]/ZIP Co de Phone Number [facility] [address] [place] [phone] * POCT Rapid Influenza A CHAPA ID NOW (10/26/2024 1:07 PM EDT) Only the most recent of2 resultswithin the time period is included. [facility] Influenza A Negative Negative, Indeterminate [facility] QC Media Lot # [id number] [facility] Lot# Expiration Date [facility] Swab 10/26/2024 1:07 PM EDT Vivien Ohara MD POINT OF CARE TEST ENTER/EDIT OR DERABLES Final Result Performing Organization Address [facility] de Phone Number [facility] [address] [place] [phone] * POCT Rapid Strep A CHAPA ID NOW (10/26/2024 12:28 PM EDT) [facility] Rapid Strep A Screen Negative Negative, None Detected QC Media Lot # [id number] Lot# Expiration Date Swab 10/26/2024 12:2 8 PM EDT Vivien Ohara MD POINT OF CARE TEST ENTER/EDIT OR DERABLES Final Result * POCT Rapid Covid-19 BinaxNOW (10/26/2024 12:28 PM EDT) Only the most recent of2 resultswithin the time period is included. [facility] Rapid COVID Ag Negative QC Media Lot # [id number] Lot# Expiration Date [id number] Swab 10/26/2024 12:2 8 PM EDT Vivien Ohara MD POINT OF CARE TEST ENTER/EDIT OR DERABLES Final Result * (ABNORMAL) Urinalysis, Complete, with Reflex to Culture (10/26/2024 12:00 AM EDT) Pathologist [facility] Color Urine Yellow [facility] Appearance Urine Clear [facility] PH 6.0 5.0 - 9.0 [facility] Glucose Urine UA 100(A) Negative mg/dL [facility] Urine Blood Small (1+)(A) Negative [facility] Specific [place] - Urine 1.010 1.005 - 1.025 [facility] Urine Protein Negative Neg-Trace mg/dL [facility] Urine Ketones Negative Negative mg/dL [facility] Nitrite Urine Negative Negative [facility] Leukocyte Esterase Urine Large (3+)(A) Negative [facility] RBC Urine 0-2 0 - 2 /HPF [facility] Urine WBC 0-5 0 - 5 /HPF [facility] Urine Squamous Epithelial Cell 6-10 0 - 2 /HPF [facility] Urine Bacteria 1+ None Seen [facility] Hyaline Casts, Urine 0-2 0 - 2 /LPF [facility] Urine 10/26/2024 10/26/2024 Narrative [facility] - 10/26/2024 4:50 PM EDT Urine, Clean Catch Vivien Ohara MD LAB URINE ORDERABLES Final Resul t [facility] [address] [place] [address] [phone] * Culture, Urine, Routine (10/26/2024 12:00 AM EDT) Only the most recent of2 resultswithin the time period is included. Urine Urine specimen obtained by clean catch procedure / Unknown 10/26/2024 10/26/2024 Comment:UACC Narrative [facility] - 10/28/2024 10:47 AM EDT Urine Culture Report Result Urine Culture 10,000 to 50,000 cfu/ml Urine Culture Mixed bacterial brigitte characteristic of Urine Culture urogenital contamination. Specimen Source: Urine clean catch us Vivien Ohara MD LAB MICROBIOLOGY - GENERAL ORDER HALINA Final Result Performing Organization Address [facility] Co de Phone Number [facility] [address] [place] [phone] * High Sensitivity Troponin I (10/18/2024 4:10 PM EDT) Only the most recent of2 resultswithin the time period is included. TROPONIN I HIGH SENSITIVITY <2.7 <3.5 - 17.0 ng/L [facility] Comment:The Chapa high sens itivity Troponin-I results should beused in conjunction with other diagnostic information suchas ECG, clinical observations and information, and patientsymptoms to aid in the diagnosis of DE. 10/18/2024 4:10 PM EDT 10/18/2024 4:13 PM EDT us Generic External Data Provider LAB BLOOD ORDERAB LES Final Result Performing Organization Address [facility] Co de Phone Number [facility] [address] [place] [phone] * TSH with Reflex to Free T4 (10/18/2024 2:03 PM EDT) TSH reflex Free T4 2.92 0.32 - 4.0 uIU/mL [facility] 10/18/2024 2:03 PM EDT 10/18/2024 2:08 PM EDT us Generic External Data Provider LAB BLOOD ORDERAB LES Final Result Performing Organization Address [facility]/State/ZIP Co de Phone Number [facility] [address] [place] [phone] * (ABNORMAL) CBC auto differential (10/18/2024 2:03 PM EDT) White Blood Count 10.4 4.8 - 10.8 X10*3/uL [facility] Red Blood Count 4.55 4.20 - 5.50 X10*6/uL [facility] Hemoglobin 13.2 12.0 - 16.0 g/dl [facility] Hematocrit 38.1 37.0 - 47.0 % [facility] Mean Corpuscular Volume 83.7 80.0 - 98.0 fL [facility] Mean Corpuscular Hemoglobin 29.0 27.0 - 33.0 pg [facility] Mean Corpuscular HGB Conc 34.6 31.0 - 35.0 g/dl [facility] Red Cell Distribution Width 13.7 11.0 - 16.0 % [facility] Platelet Count 234 160 - 400 X10*3/uL [facility] Mean Platelet Volume 9.7 9.4 - 12.3 fL [facility] Neutrophils Percent Auto 61.7 45 - 73 % [facility] Imm Gran Pct Auto 0.5(H) 0.0 - 0.4 % [facility] Lymphocytes Percent Auto 27.0 20 - 40 % [facility] Monocytes Percent Auto 7.6 2 - 11 % [facility] Eosinophils Percent Auto 2.9 0 - 4 % [facility] Basophils Percent Auto 0.3 0 - 2 % [facility] NRBC Pct Auto 0.0 0.0 - 0.2 /100WBC [facility] Neutrophils Absolute Auto 6.4 2.0 - 8.3 x10*3/uL [facility] Imm Gran Abs Auto 0.05(H) 0.00 - 0.03 X10*3/uL [facility] Lymphocytes Absolute Auto 2.8 1.2 - 4.9 X10*3/uL [facility] Monocytes Absolute Auto 0.8 0.1 - 1.2 X10*3/uL [facility] Eosinophils Absolute Auto 0.3 0.0 - 0.4 X10*3/uL [facility] Basophils Absolute Auto 0.0 0.0 - 0.2 X10*3/uL [facility] NRBC Abs Auto 0.000 0.0 - 0.012 X10*3/uL [facility] 10/18/2024 2:03 PM EDT 10/18/2024 2:08 PM EDT Generic External Data Provider LAB BLOOD ORDERAB LES Final Result Performing Organization Address [facility]/ZIP Co de Phone Number [facility] [address] [place] [phone] * Magnesium (10/18/2024 2:03 PM EDT) Magnesium 1.7 1.6 - 2.6 mg/dL [facility] 10/18/2024 2:03 PM EDT 10/18/2024 2:08 PM EDT Generic External Data Provider LAB BLOOD ORDERAB LES Final Result Performing Organization Address [facility] Co de Phone Number [facility] [address] [place] [phone] * Lipase (10/18/2024 2:03 PM EDT) Lipase 23 8 - 78 U/L [facility] 10/18/2024 2:03 PM EDT 10/18/2024 2:08 PM EDT Generic External Data Provider LAB BLOOD ORDERAB LES Final Result Performing Organization Address [facility] Co de Phone Number [facility] [address] [place] [phone] * (ABNORMAL) Comprehensive Metabolic Panel (10/18/2024 2:03 PM EDT) Sodium 140 135 - 145 mmol/L [facility] Potassium 3.9 3.3 - 5.1 mmol/L [facility] Chloride 109(H) 96 - 108 mmol/L [facility] Carbon Dioxide 25 22 - 29 mmol/L [facility] Anion Gap 10(L) 12 - 20 [facility] Urea Nitrogen (BUN) 13 9 - 16 mg/dL [facility] Creatinine, Serum 0.74 0.5 - 1.4 mg/dL [facility] Creatinine Clr Calc Pharmacy 70.6 [facility] Comment:Provided height and weight: 147.32 cm,86.2 kg.eGFR (calculated from the MDRD study equation) and eCrCl(calculated from the Cockcroft-Gault equation) are based ondifferent parameters and may not yield comparable results.If eCrCl result is absurd, please check patient'sheight/weight. Estimated Glomerular Filt Rate >60 [facility] Comment:Chronic Kidney Disea se: Estimated GFR < 60 mL/min/1.43y6Fbdbck Kidney Disease: Estimated GFR < 15 mL/min/1.73m2 Glucose 151(H) 60 - 115 mg/dL [facility] Calcium 9.0 8.4 - 10.2 mg/dL [facility] Bilirubin, Total 0.3 0.0 - 1.0 mg/dL [facility] Aspartate Amino Transferase 20 5 - 31 U/L [facility] Alanine Aminotransferase 16 0 - 31 U/L [facility] Total Protein 7.8 6.5 - 8.0 g/dL [facility] Albumin Level 3.7 3.5 - 5.0 g/dL [facility] Alkaline Phosphatase 89 39 - 117 U/L [facility] 10/18/2024 2:03 PM EDT 10/18/2024 2:08 PM EDT us Generic External Data Provider LAB BLOOD ORDERAB LES Final Result [facility] [address] [place] [phone] * XR Chest 2 Views (10/18/2024 1:55 PM EDT) Only the most recent of2 resultswithin the time period is included. Anatomical Region Laterality Modality Chest Radiographic Diana ging 10/18/2024 1:55 PM EDT Narrative 10/18/2024 1:56 PM EDT ? [facility] ?[address] ?[place] [address] ?XRay Report ? Signed ? Patient: Deleon,Lia ?MR#: [id number] ?? 910 ? : 1960 ?Acct:[id number] ? Age/Sex: 64 / F ?ADM Date: 10/18/24 ? Loc: HO.ED ? Attending Dr: ? Ordering Physician: Ligia Dale ?? Date of Service: 10/18/24 ?? Procedure(s): XR chest 2V ?? Accession Number(s): [id number] ? cc: Ligia Dale; Vivien Ohara MD [...] 10/18/245 ? DD/ ? TD/TT: 10/18/245 ? Chicken Cleaner: ? Procedure Note Ariela Arzola - 10/18/[address] [address] XRay Report Signed Patient: Lia DeleonMR#: [id number] 910 : 9Acct:[id number] Age/Sex: 64 / FADM Date: 10/18/24 Loc: HO.ED Attending Dr: Ordering Physician: Ligia Dale Date of Service: 10/18/24 Procedure(s): XR chest 2V Accession Number(s): [id number] cc: Ligia Dale; Vivien Ohara MD CLINICAL [...] 10/18/24 1355 DD/ 54 TD/TT: 10/18/24 135 Chicken Cleaner: [facility] External Provider IMG XR PROCEDURES Edited Result - Final * SARS-CoV-2 RNA, Influenza A/B, and RSV RNA, Ql NAAT (10/18/2024 12:50 PM EDT) Influenza A PCR NEGATIVE Negative [facility] Influenza B PCR NEGATIVE Negative [facility] Resp Syncy Virus RNA Qual PCR NEGATIVE Negative [facility] SARS COV2 PCR NEGATIVE Negative [facility] Comment:All test results mus t [...] use by authorized laboratories.Testing performed on the [employer] GeneXpert utilizingreal-time RT-PCR.All SARS CoV2 and positive influenza A/B results arereported to [facility]. 10/18/2024 12:5 0 PM EDT 10/18/2024 12:53 PM EDT [facility] [place] Data Provider LAB MICROBIOLOGY - GENERAL ORDERABLES Final Result [facility] [address] [place] [phone] * (ABNORMAL) POCT HGB A1C (09/22/2024 3:10 PM EST) Hemoglobin A1C 6.8(A) 4.0 - 6.0 % Blood 09/22/2024 3:10 PM EST Oksana Ernst ANP POINT OF CARE TEST ENTER/EDIT OR DERABLES Final Result * POCT Glucose (09/22/2024 3:10 PM EST) Pathologist [facility] Glucose Blood, POC 128 60 - 200 mg/dL Blood Capillary blood specimen / Unknown 09/22/2024 3:10 PM EST [facility] Ernst ANP POINT OF CARE TEST ENTER/EDIT OR DERABLES Final Result * Bacterial Vaginosis Panel (09/22/2024 1:52 PM EST) Pathologist [facility] TRICHOMONAS VAGINALIS DETECTION BY PCR NOT DETECTED Not Detect [facility] BACTERIAL VAGINOSIS DETECTION BY PCR NEGATIVE Negative [facility] Comment:The BV organism targ ets of [...] DETECTION BY PCR NOT DETECTED Not Detect [facility] Delaney glab krusei PCR NOT DETECTED Not Detect [facility] Swab Vaginal structure / Unknown 09/22/2024 1:52 PM EST 09/22/2024 4:10 PM EST Oksana Ernst [facility] LAB MICROBIOLOGY - GENERAL ORDER HALINA Final Result Performing Organization Address [facility] de Phone Number [facility] [address] [place] [phone] * (ABNORMAL) Urinalysis Complete (09/22/2024 1:52 PM EST) Pathologist [facility] Color Urine Yellow [facility] Appearance Urine Clear [facility] PH 6.5 5.0 - 9.0 [facility] Glucose Urine UA Negative Negative mg/dL [facility] Urine Blood Small (1+)(A) Negative [facility] Specific [place] - Urine 1.010 1.005 - 1.025 [facility] Urine Protein Negative Neg-Trace mg/dL [facility] Urine Ketones Negative Negative mg/dL [facility] Nitrite Urine Negative Negative [facility] Leukocyte Esterase Urine Large (3+)(A) Negative [facility] RBC Urine 3-5(A) 0 - 2 /HPF [facility] Urine WBC >50(A) 0 - 5 /HPF [facility] Urine Squamous Epithelial Cell 11-20 0 - 2 /HPF [facility] Urine Bacteria 1+ None Seen [facility] Hyaline Casts, Urine 0-2 0 - 2 /LPF [facility] Urine (Urine, Random) 09/22/2024 1:52 PM EST 09/22/2024 4:10 PM EST Oksana Ernst ANP LAB URINE ORDERABLES Final Resul t Performing Organization Address [facility] Co de Phone Number [facility] [address] [place] [phone] * (ABNORMAL) Respiratory Viral Panel PCR (09/01/2024 12:00 AM EST) Adenovirus PCR Not Detected Not Detect. [facility] Bordetella pertussis PCR Not Detected Not Detect. [facility] Comment:Interpret results wi th caution. If B. pertussis isspecifically suspected, additional testing using analternate method is recommended. Bordetella parapertussis PCR Not Detected Not Detect. [facility] Chlamydia pneumoniae PCR Not Detected Not Detect. [facility] Coronavirus 229E PCR Not Detected Not Detect. [facility] Coronavirus HKU1 PCR Not Detected Not Detect. [facility] Coronavirus NL63 PCR Not Detected Not Detect. [facility] Coronavirus OC43 PCR Not Detected Not Detect. [facility] SARS-CoV-2 PCR Not Detected Not Detect. [facility] Comment:SARS-CoV-2 not detec bridger by real-time [...] laboratories. Influenza A PCR Detected(A) Not Detect. [facility] Influenza B PCR Not Detected Not Detect. [facility] Human metapneumovirus PCR Not Detected Not Detect. [facility] Rhino/Enterovirus PCR Not Detected Not Detect. [facility] Mycoplasma pneumoniae PCR Not Detected Not Detect. [facility] Parainfluenza 1 PCR Not Detected Not Detect. [facility] Parainfluenza 2 PCR Not Detected Not Detect. [facility] Parainfluenza 3 PCR Not Detected Not Detect. [facility] Parainfluenza 4 PCR Not Detected Not Detect. [facility] RSV PCR Not Detected Not Detect. [facility] Resp Panel NA Note See Note [facility] Comment:All results must be correlated [...] assay is performed by Multiplexed PCR, utilizing [employer] Film Array. 09/01/2024 09/01/2024 us Yuval Henry MD LAB BLOOD ORDERABLES Final Resul t [facility] [address] [place] [phone] * (ABNORMAL) Lipid Panel with Reflex to Direct LDL (05/13/2024 11:00 AM EDT) Triglycerides 200(H) <150 mg/dL [facility] Comment:Desirable Triglyceri de: less than 150 mg/dLBorderline High Triglyceride 150-199 mg/dLHigh Triglyceride: 200-499 mg/dLVery High Triglyceride: greater than or equal to 5OO mg/dL Cholesterol 180 <200 mg/dL [facility] Comment:Desirable Cholestero l: less than 200 mg/dLBorderline High Cholesterol: 200-239 mg/dLHigh Cholesterol: greater than 239 mg/dL LDL Cholesterol Calculated 95 <100 mg/dL [facility] Comment:Desirable LDL: less than 100 mg/dLNear Optimal/Above Optimal LDL: 110- 129 mg/dLBorderline High LDL: 130-159 mg/dLHigh LDL: 160-189 mg/dLVery High LDL: greater than or equal to 190 mg/dL HDL Cholesterol 45 >40 mg/dL [facility] Comment:Desirable HDL: great er than 40 mg/dL Note: This HDL assay may give artificially low results in patients with liver disease. Blood 05/13/2024 11:0 0 AM EDT 05/13/2024 11:37 AM EDT us Vivien Ohara MD LAB BLOOD ORDERABLES Final Resul t [facility] [address] [place] [address] [phone] * BI Mammogram Screening Tomosynthesis Bilateral (01/07/2024 12:55 PM EDT) Anatomical Region Laterality Modality Breast Bilateral Mammography 01/07/2024 12:5 5 PM EDT Narrative 02/06/2024 9:41 AM EDT ? [facility] ? [address] ?[place] [address] ? Mammography Report ? Signed ? Patient: Deleon,Lia ?MR#: [id number] ?? [id number] ? : 1960 ?Acct:[id number] ? Age/Sex: 63 / F ?ADM Date: 01/07/24 ? Loc: HO.MAMMO ? Attending Dr: Vivien Ohara MD ? Ordering Physician: Vivien Ohara MD ?Results: 1Negative ? Date of Service: 01/07/24 ?Follow Up: 1 Year From Orig ?? inal Mammogram ? Procedure(s): MM tomosynthesis screening BI ?? Accession Number(s): [id number] ? cc: Vivien Ohara MD ? EXAMINATION: [...] 0937 ? DD/ 1255 ? TD/TT: ? Chicken Cleaner: ? Procedure Note Dariusz, Image - 02/06/2024 [facility] [address] [place] [address] [place] [address] Mammography Report Signed Patient: Nathanael Deleon#: [id number] : 9Acct:[id number] Age/Sex: 63 / FADM Date: 01/07/24 Loc: BECK Attending Dr: Vivien Ohara MD Ordering Physician: Vivien Oharaesults: 1Negative Date of Service: 01/07/24Follow Up: 1 Year From Orig inal Mammogram Procedure(s): MM tomosynthesis screening BI Accession Number(s): [id number] cc: Vivien Ohara MD EXAMINATION: MM SCREENING [...] in OV> 02/06/24 0937 DD/ 1255 TD/TT: Chicken Cleaner: Vivien Ohara MD IM BI PROCEDURES Final [...] LABS 05/01/2022 4:14 PM EDT Kandi Vanessa LINING MECHANIC LAB URINE ORDERABLES Final Result CONVERTED LEGACY LABS from Last 3 Months or Most Recently Relevant to Health Maintenance Insurance [facility] [employer] OPT[employer] (O D-SNP) [place] [id number] Care Teams Horse Buyer Relationship Specialty Start Date End Date Vivien Ohara MD [address] [place] [address] PCP - General Family Medicine 08/19/23
--- OUTSIDE RECORDS SUMMARY | 2024-11-23 17:36 | XMS_ITS | Encounter Summary ---
Author Organization [employer] Address [address] [facility] 7 [place] [address] Care Team Providers Care Track Repair Person Name Role Phone Kandi Vanessa Primary Care Provider [phone] Lakeisha Yadav NP Primary Care Provider [phone] Vivien Ohara MD Primary Care Provider [phone] Reason for Visit * Reason Onset Date Comments Results 08/03/2022 Encounter Details Date Type Department Care Team ([facility] st Contact Info) Description 08/03/2022 Telephone [facility] [address] [place] [address] Kandi Vanessa FNP [address] [place] [address] [place] [address] Results Social History Tobacco Use Types Packs/Day [...] Description 02/01/2025 3:00 PM EDT Office Visit [facility] [address] [place] [address] Vivien Ohara MD [address] [place] [address] documented as of this encounter Visit Diagnoses Not on filedocumented in this encounter Care Teams Track Repair Person Relationship Specialty Start Date End Date Kandi Vanessa FNP PCP - General Family Medicine 03/07/22 05/02/23 Lakeisha Yadav NP [address] [place] [address] PCP - General Family Medicine 05/03/23 08/18/23 Vivien Ohara MD [address] [place] [address] PCP - General Family Medicine 08/19/23 documented as of this encounter
--- OUTSIDE RECORDS SUMMARY | 2024-11-23 17:36 | XMS_ITS | Encounter Summary ---
Author Organization [employer] Address [address] [facility] [address] 7t [place] [address] Care Team Providers Care Slitter Service And Setter Name Role Phone Vivien Ohara MD Primary Care Provider [phone] Encounter Details Date Type Department Care Team ([facility] Contact Info) Description 10/27/[address] [facility] [address] [place], [place] [phone] Vivien Ohara MD [address] [place] [address] Social History Tobacco Use Types Packs/Day Years [...] is your housing situation today? I have afllon bello 09/23/[address] you [...] PM EDT Office Visit [facility] [address] [place] [address] Vivien Ohara MD [address] [place] [address] documented as of this encounter Visit Diagnoses Not on filedocumented in this encounter Additional Health Concerns Assessment Noted Time PHQ-9 Depression Total Score: 13 025 12:01 PM EDT documented as of this encounter Care Teams Slitter Service And Setter Relationship Specialty Start Date End Date Vivien Ohara MD [address] [place] [address] PCP - General Family Medicine 08/19/23 documented as of this encounter
--- OUTSIDE RECORDS SUMMARY | 2024-11-23 17:36 | XMS_ITS | Encounter Summary ---
Author Organization [employer] Address 75 [facility] [address] 7t [place] [address] Care Team Providers Care Antenna Specialist Name Role Phone Lakeisha Yadav NP Primary Care Provider [phone] Vivien Ohara MD Primary Care Provider [phone] Reason for Visit * Reason Comments Med Refill Encounter Details Date Type Department Care Team ([facility] st Contact Info) Description 08/17/2023 Refill [facility] [address] [place] [address] Name, MD Dylon [address] [place] [address] Mild intermittent asthma with acute exacerbation Social [...] Description 02/01/2025 3:00 PM EDT Office Visit [facility] [address] [place] [address] Vivien Ohara MD [address] [place] [address] documented as of this encounter Visit Diagnoses Diagnosis Mild intermittent asthma with acute exacerbation documented in this encounter Additional Health Concerns Assessment Noted Time PHQ-9 Depression Total Score: 0 03/14/20 23 1:40 PM EDT documented as of this encounter Care Teams Antenna Specialist Relationship Specialty Start Date End Date Lakeisha Yadav NP [address] [place] [phone] PCP - General Family Medicine 05/03/23 08/18/23 Vivien Ohara MD [address] [place] [address] PCP - General Family Medicine 08/19/23 documented as of this encounter
--- OUTSIDE RECORDS SUMMARY | 2024-11-23 17:36 | XMS_ITS | Encounter Summary ---
Author Organization [employer] Address [address] [facility] [address] 7t [place] [address] Care Team Providers Care Periodontist Name Role Phone Vivien Ohara MD Primary Care Provider [phone] Reason for Visit * Reason Comments Med Refill Encounter Details Date Type Department Care Team ([facility] Contact Info) Description 05/14/2024 Refill [facility] 230 [place], [place] [phone] Vivien Ohara MD 230 [place], [place] [phone] Mild intermittent asthma with acute exacerbation Social [...] Description 02/01/2025 3:00 PM EDT Office Visit [facility] [address] [place] [address] Vivien Ohara MD 230 [place] [address] documented as of this encounter Visit Diagnoses Diagnosis Mild intermittent asthma with acute exacerbation documented in this encounter Additional Health Concerns Assessment Noted Time PHQ-9 Depression Total Score: 0 03/14/20 23 1:40 PM EDT documented as of this encounter Care Teams Periodontist Relationship Specialty Start Date End Date Vivien Ohara MD [address] [place] [phone] PCP - General Family Medicine 08/19/23 documented as of this encounter
--- OUTSIDE RECORDS SUMMARY | 2024-11-23 17:36 | XMS_ITS | Encounter Summary ---
Author Organization [employer] Address [address] [facility] [address] 7[address] [place] [address] Care Team Providers Care Chlorine Cell Tender Name Role Phone Vivien Ohara MD Primary Care Provider [phone] Reason for Visit * Reason Comments Med Refill Encounter Details Date Type Department Care Team ([facility] Contact Info) Description 11/06/2023 Refill [facility] 230 [place] [address] Amanda Moreno MD [address] [place], [place] [phone] Social History Tobacco Use Types Packs/Day Years [...] Description 02/01/2025 3:00 PM EDT Office Visit [facility] [address] [place] [address] Vivien Ohara MD [address] [place] [address] documented as of this encounter Visit Diagnoses Not on filedocumented in this encounter Additional Health Concerns Assessment Noted Time PHQ-9 Depression Total Score: 0 03/14/20 23 1:40 PM EDT documented as of this encounter Care Teams Chlorine Cell Tender Relationship Specialty Start Date End Date Vivien Ohara MD [address] [place] [address] PCP - General Family Medicine 08/19/23 documented as of this encounter
== END 2024-11-23 14:05 | disposition home or self-care (01) ==
LOC: HO.LAB 14:04
PROVIDERS: PCP Family Medicine; Visit Provider Urology
DX: R31.29 Other microscopic hematuria (principal)
CPT/HCPCS: 81003; 87086; 88112; 99212

== ENCOUNTER 2024-11-23 14:04 | Outpatient (AMB) | payer OTHER, SELFPAY ==
--- NOTE | 2024-11-23 14:05 | MHC.OFFVIS ---
Intake Visit Reasons: 6m/OAB/UTI/Micro hematuria Intake Note: Patient is present for a 6 month follow up/OAB/Micro hematuria Urology Medication:macrobid Antibiotic Allergy:penicilliins, sulfa Blood Thinner:none PVR: 0ml Tin Worker Required: No Allergies penicillin V Allergy (Unknown, Verified 11/23/24 14:07) Anaphylaxis Penicillins Allergy (Unknown, Verified 11/23/24 14:07) Rash Sulfa (Sulfonamide Antibiotics) Allergy (Unknown, Verified 11/23/24 14:07) Anaphylaxis sulfamethoxazole Allergy (Unknown, Verified 11/23/24 14:07) rash trimethoprim Allergy (Unknown, Verified 11/23/24 14:07) rash Medication List - Last Reconciled 11/23/24 by Nikunj Simon MD albuterol sulfate mg inhalation QID PRN aspirin 81 mg PO QAM cetirizine 10 mg PO DAILY PRN clotrimazole-betamethasone 1-0.05 % 1 appl topical BID PRN cranberry extract 425 mg PO BID cyclobenzaprine 5 mg PO TID PRN dapagliflozin propanediol (Farxiga) 10 mg PO DAILY epinephrine IM fenofibrate 54 mg PO DAILY fluticasone furoate 100 mcg/actuation (Arnuity Ellipta) inhalation DAILY fluticasone propionate 50 mcg/actuation intranasal gabapentin 100 mg PO TID PRN lancets (TRUEplus Lancets) As directed levothyroxine 50 mcg PO DAILY lidocaine 5% 1 patch topical DAILY PRN metformin ER 1,000 mg PO BID omeprazole 40 mg PO DAILY semaglutide (Ozempic) mg subcut tolterodine ER 4 mg PO DAILY HPI Comments Details: 11/23/24--Lia is a 64-year-old female who has been evaluated for microscopic hematuria. She was seen last in the office April 2024. Office cystoscopy, 05/27/24 was notable for mild inflammatory changes consistent with cystitis. CT abdomen and pelvis without IV contrast 11/06/23, kidneys within normal limits negative for kidney stones or masses.The patient also had overactive bladder symptoms and was prescribed tolterodine. She was counseled on use of cranberry tablets importance of adequate hydration. She is here for follow-up. She states the tolterodine is working well for her bladder control. She complains of vaginal itching. Diabetes comorbidity. I will prescribe Lotrisone cream. I have discussed continued use of cranberry supplements and we will continue tolterodine 4 mg daily. She also complains of back pain. We will check renal ultrasound. Urinalysis today leukocytes 2+ blood 3+ glucose 1+. Urine will be sent for culture and cytology. 05/27/24--FU microscopic hematuria. Urine cytology sent on 04/16/24-- No malignant cells. Here for offie cystoscopy. Cystoscopy findings: Mild inflammatory changes consistent with cystitis, no suspicious bladder lesions visualized. 04/16/24--Lia is here with complaints of urinary incontinence and urinary frequency. She states that she has had UTIs in the past. Urinalysis-microscopic hematuria. I reviewed CT abdomen and pelvis without IV contrast 11/06/23, kidneys within normal limits negative for kidney stones or masses. I have discussed further evaluation with cystoscopy, and urine for cytology. Will trial anticholinergic tolterodine 4 mg daily. I have also recommended cranberry tablets daily. COUNTS INCLUDE 234 BEDS AT THE [facility] Medical History Pulmonary fibrosis Asthma DONA (obstructive sleep apnea) Obesity (BMI 30-39.9) Gastritis Social History Patient Tobacco Use Status: Never used Tobacco Review of Systems Const All systems reviewed & are unremarkable except as noted in HPI and below Reports no additional complaints Eyes Reports no additional complaints ENT Reports no additional complaints Card Reports no additional complaints Resp Reports no additional complaints GI Reports no additional complaints Reports as per HPI Musc Reports no additional complaints Skin/Breast Reports system reviewed and no additional complaints, except as documented Neuro Reports no additional complaints Psych Reports no additional complaints Endo Reports no additional complaints Lloyd/Lymph Reports no additional complaints Aller/Immun Reports no additional complaints Assessment & Plan Assessment & Plan (1) Microscopic hematuria: Code(s): R31.29 - Other microscopic hematuria Category: Medical (2) Back pain: Code(s): M54.9 - Dorsalgia, unspecified Category: Medical (3) OAB (overactive bladder): Code(s): N32.81 - Overactive bladder Category: Medical (4) Vaginitis: Code(s): N76.0 - Acute vaginitis Category: Medical (5) Chronic cystitis: Code(s): N30.20 - Other chronic cystitis without hematuria Category: Medical Plan She states the tolterodine is working well for her bladder control. She complains of vaginal itching. Diabetes comorbidity. I will prescribe Lotrisone cream. I have discussed continued use of cranberry supplements and we will continue tolterodine 4 mg daily. She also complains of back pain. We will check renal ultrasound. Urinalysis today leukocytes 2+ blood 3+ glucose 1+. Urine will be sent for culture and cytology. Orders: Orders Urine Cytology Today R31.9 - Hematuria, unspecified US renal BI Today M54.9 - Dorsalgia, unspecified, R31.29 - Other microscopic hematuria Urine Culture Today R31.9 - Hematuria, unspecified Medications: New clotrimazole-betamethasone 1-0.05 % 1 appl topical BID PRN 45 grams 1RF vaginal itching Refilled cranberry extract administer with meals 425 mg PO BID 180 caps 3RF tolterodine ER 4 mg PO DAILY 90 caps 3RF Patient Instructions: The patient had an opportunity to ask questions regarding treatment plan. The patient expressed understanding and agreement with the above treatment plan. The patient is aware they should contact our office by phone for worsening of their current condition or the appearance of new symptoms. Compliance is encouraged with any medications and followup testing that is ordered. It is a privilege to be allowed the opportunity to participate in the urologic care of your patient. If you have any questions or concerns regarding treatment for the above conditions please do not hesitate to contact me. The office telephone contact is [phone]. This note is constructed in part using voice recognition software. While every effort has been made to ensure accuracy dye weigher errors may have been included. Yours sincerely, Nikunj Simon MD Coding Level of Care Code Est Pt Level 4 (83438) Diagnoses Microscopic hematuria R31.29 Back pain M54.9 OAB (overactive bladder) N32.81 Vaginitis N76.0 Chronic cystitis N30.20
--- OUTSIDE RECORDS SUMMARY | 2024-11-23 16:51 | XMS_ITS | Encounter Summary ---
Author Organization [employer] Address [address] [place] [address] Care Team Providers Care Epic Cupid Analyst Name Role Phone Vivien Ohara MD Primary Care Provider [phone] Encounter Details Date Type Department Care Team ([facility] Contact Info) Description 10/27/2024 Orders Only [facility] [address] [place], [place] [phone] Vivien Ohara MD [address] [place] [address] Social History Tobacco Use Types Packs/Day Years [...] Care Team (Late st Contact Info) Description 02/01/2025 3:00 PM EDT Office Visit [facility] [address] [place] [phone] Vivien Ohara MD [address] [place] [phone] documented as of this encounter Visit Diagnoses Not on filedocumented in this encounter Additional Health Concerns Assessment Noted Time PHQ-9 Depression Total Score: 13 025 12:01 PM EDT documented as of this encounter Care Teams Epic Cupid Analyst Relationship Specialty Start Date End Date Vivien Ohara MD [address] [place] [phone] PCP - General Family Medicine 08/19/23 documented as of this encounter
--- OUTSIDE RECORDS SUMMARY | 2024-11-23 16:51 | XMS_ITS | Encounter Summary ---
Author Organization [employer] Address [address] [place] [address] Care Team Providers Care Safety And Health Consultant Name Role Phone Vivien Ohara MD Primary Care Provider [phone] Reason for Visit * Reason Comments Med Refill Encounter Details Date Type Department Care Team ([facility] Contact Info) Description 11/06/2023 Refill [facility] [address] [place] [address] Amanda Moreno MD [address] [place], [place] [phone] Social History Tobacco Use Types Packs/Day Years [...] Description 02/01/2025 3:00 PM EDT Office Visit [facility] [address] [place] [phone] Vivien Ohara MD [address] [place] [phone] documented as of this encounter Visit Diagnoses Not on filedocumented in this encounter Additional Health Concerns Assessment Noted Time PHQ-9 Depression Total Score: 0 03/14/20 23 1:40 PM EDT documented as of this encounter Care Teams Safety And Health Consultant Relationship Specialty Start Date End Date Vivien Ohara MD [address] [place] [phone] PCP - General Family Medicine 08/19/23 documented as of this encounter
--- OUTSIDE RECORDS SUMMARY | 2024-11-23 16:52 | XMS_ITS | Clinical Summary ---
Author Organization [employer] Address [address] [facility] [address] [place] [address] Care Team Providers Care Records Associate Name Role Phone Vivien Ohara MD Primary Care Provider [phone] Allergies Active Allergy Reactions Criticality Noted Date [...] 023 Active Blood Glucose Monitoring Suppl (FreeStyle Millrift Lite) w/Device kit TEST BLOOD SUGAR THREE TIMES DAILY DIRECTED 1 kit 023 Active Diclofenac Sodium 1 % gel APPLY 2 GRAMS TOPICALLY TO AFFECTED AREA(S) FOUR TIMES DAILY 100 g 3 023 Active cyclobenzaprine (Flexeril) 10 MG tablet Take 1 tablet (10 mg) by mouth at bedtime for 10 days. 10 tablet Active albuterol (2.5 MG/3ML) 0.083% nebulizer solutionIndicati ons:Mild intermittent asthma with acute exacerbation INHALE 1 AMPULE USING A NEBULIZER FOUR TIMES DAILY NEEDED 90 mL Active valsartan (Diovan) 160 MG tabletIndication s:Hypertension, unspecified type Take 1 tablet (160 mg) by mouth Once per day. 90 tablet 3 2024 Active lidocaine (Lidoderm) 5 % patchIndications [...] EMERGENCY ROOM OR CALL 911. 2 each Active albuterol (Ventolin HFA) 108 (90 Base) MCG/ACT inhalerIndicatio ns:Mild intermittent asthma with acute exacerbation INHALE 2 PUFFS BY MOUTH EVERY 4 TO 6 HOURS NEEDED 18 g Active tolterodine LA (Detrol LA) 4 MG 24 hr capsule Take 4 mg by mouth Once per day. Active fluticasone furoate (Arnuity Ellipta) 100 MCG/ACT inhalerIndicatio ns:Mild intermittent asthma with acute exacerbation INHALE 1 PUFF BY MOUTH EVERY DAY AT THE SAME TIME RINSE MOUTH AFTER USING 30 each Active omeprazole (PriLOSEC) [address] capsule TAKE 1 CAPSULE BY MOUTH EVERY DAY 90 capsule Active levothyroxine (Synthroid, Levoxyl) 50 MCG tabletIndication s:Multinodular goiter TAKE 1 TABLET BY MOUTH EVERY DAY 90 tablet Active fenofibrate (Tricor) 54 MG tablet TAKE 1 TABLET BY MOUTH ONCE DAILY IN THE MORNING 90 tablet Active aspirin (Aspirin Low Dose) 81 MG EC tabletIndication s:Primary hypertension TAKE 1 TABLET BY MOUTH ONCE DAILY IN THE MORNING 90 tablet 1 025 Active TRUEplus Lancets 33G miscIndications: Type 2 diabetes mellitus without complication, without long-term current use of insulin (CMS/[facility]) TEST BLOOD SUGAR THREE TIMES DAILY DIRECTED 100 each 025 Active FREESTYLE LITE test stripIndications :Type 2 diabetes mellitus without complication, without long-term current use of insulin (CMS/HCC) TEST BLOOD SUGAR THREE TIMES DAILY DIRECTED 100 strip 025 Active gabapentin (Neurontin) 100 MG capsuleIndicatio ns:Fibromyalgia TAKE 2 CAPSULES BY MOUTH EVERY 8 HOURS 180 capsule 025 Active Ozempic, 0.25 or 0.5 MG/DOSE, 2 MG/3ML solution pen-injectorIndi cations:Type 2 diabetes mellitus without complication, without long-term current use of insulin (CMS/[facility]) INJECT 0.25 MG SUBCUTANEOUSLY EVERY 7 DAYS IN THE ABDOMEN, THIGHS OR UPPER ARM. ROTATE INJECTION SITES. 3 mL 1 025 Active Farxiga 10 MG Take 1 tablet by mouth Once per day. 025 Active metFORMIN XR (Glucophage-XR) 500 MG 24 hr tablet Take 500 mg by mouth 2 times daily. 025 Active amLODIPine (Norvasc) 5 MG tablet Take 1 tablet (5 mg) by mouth Once per day. 90 tablet 3 025 2025 Active cholecalciferol (Vitamin D-3) 25 MCG (1000 UT) capsule Take 1 capsule (25 mcg) by mouth Once per day. 90 capsule 3 025 Active cetirizine (ZyrTEC) 10 MG tabletIndication s:Seasonal allergic rhinitis, unspecified trigger Take 1 tablet (10 mg) by mouth Once per day. 90 tablet 1 025 Active fluticasone (Flonase) 50 MCG/ACT nasal sprayIndications :Seasonal allergic rhinitis, unspecified trigger INSTILL 1-2 SPRAYS IN EACH NOSTRIL ONCE DAILY 48 g 1 025 Active cholecalciferol (Vitamin D-3) 25 MCG (1000 UT) capsule Take 1 capsule by mouth in the morning. 022 2024 Discontinued( Reorder (will not trigger notification to Pharmacy)) omeprazole (PriLOSEC) [address] capsuleIndicatio ns:Heartburn TAKE 1 CAPSULE BY MOUTH BEFORE BREAKFAST. DO NOT BREAK, CRUSH, DISSOLVE OR CHEW. 90 capsule 023 2024 Discontinued( Duplicate order (will not trigger notification to Pharmacy)) fluticasone (Flonase) 50 MCG/ACT nasal sprayIndications :Seasonal allergic rhinitis, unspecified trigger INSTILL 1-2 SPRAYS IN EACH NOSTRIL ONCE DAILY NEEDED 48 g 1 024 2024 Discontinued metFORMIN, OSM, (Fortamet) 1000 [...] complication, without long-term current use of insulin ([facility]) INJECT 0.25 MG SUBCUTANEOUSLY EVERY 7 DAYS IN THE ABDOMEN, THIGHS OR UPPER ARM. ROTATE INJECTION SITES. 3 mL 1 024 2024 Discontinued cetirizine (ZyrTEC) 10 MG tabletIndication s:Seasonal allergic rhinitis, unspecified trigger TAKE 1 TABLET BY MOUTH EVERY DAY NEEDED FOR ALLERGY OR RUNNY NOSE 90 tablet 1 025 2024 Discontinued( Reorder (will not trigger notification to Pharmacy)) fluconazole (Diflucan) 150 MG tablet Take 1 tablet (150 mg) by mouth 1 (one) time for 1 dose. 1 tablet 025 2024 Active Problems Problem Noted [...] 8:44 AM EDT): - previously seen by [facility] Urologist -was recommended bladder suspension surgery -pt has both stress and urge incontinence -will refer back to Urologist -discussed about possible side effects including urinary problem with new medication for type 2 diabetes and pt verbalize understanding Assessment & Plan (05/13/2024 1:54 PM EDT): - previously seen by [facility] Urologist -was recommended bladder suspension surgery -pt has both stress and urge incontinence -will refer back to Urologist -discussed about possible side effects including urinary problem with new medication for type 2 diabetes and pt verbalize understanding Assessment & Plan (01/16/2024 11:23 AM EDT): - previously seen by [facility] Urologist -was recommended bladder suspension surgery [...] TDap/Td: 03/02/2011, states she had repeat in [place]. No records. Will task MA to try and locate [place] records Foot exam/peripheral pulses: WNL 05/07 on 03/14/23 EFREM/ARB: Lisinopril 20 mg Statin: none Assessment & Plan (10/29/2024 10:16 AM EDT): - Dx in January 2023 - A1C 6.8% on 09/22/24, slight improvement from 7.2% on 05/13/24 - continue working on lifestyle modifications - continue metformin ER 500 mg bid - continue dapagliflozin (Farxiga) 10 mg daily - continue semaglutide 0.25 mg weekly - foot exam: 10/26/24 - eye exam: [facility] eye care Apr 2024, no diabetic retinopathy - microalbumin: Apr 2022, mild microalbuminuria - [...] visit - eye exam: referred again to [facility] eye care - microalbumin: Apr 2022, [...] numbness - eye exam: referred again to [facility] eye care - microalbumin: Apr 2022, [...] numbness - eye exam: referred again to [facility] eye care - microalbumin: Apr 2022, mild microalbuminuria - lipid profile: Apr 2022 - follow up in 3-4 mo or sooner prn Assessment & Plan (04/25/2023 11:21 PM EDT): Refer dental [place] will contact about eye care centers that accept [facility] Increase Metformin dose Refer Nutrition d/t new Diabetes diagnosis F/u 3 months with new PCP or sooner PRN Assessment & Plan (02/08/2023 7:10 PM EDT): Continue Metformin Discuss Diabetes further at f/u appt F/u 1 month or sooner PRN Multilevel degenerative disc disease 10/19/2022 Assessment & Plan (10/29/2024 10:11 AM EDT): 07/20/2022 Cervical, thoracic and lumbar Xrays: Multilevel degenerative changes w/out any foraminal narowing of lumbar, throcic, and cervical spine. Continue current medications for pain Referred to PT Patient requests a referral to pain management Assessment & Plan (10/06/2023 4:54 PM EDT): [...] Cymbalta was too sedating. Assessment & Plan (10/29/2024 10:10 AM EDT): Pt self-discontinued cymbalta Rx Gabapentin 100 mg TID PRN Refer to PT again Referred to Rheum by previous PCP for management of fibromyalgia. Recommended acupuncture Patient requests a referral to pain management Assessment & Plan (05/13/2024 1:55 PM EDT): [...] check RAST or referral to allergy / retail beauty specialist Assessment & Plan (10/06/2023 5:02 PM EDT): - continue cetirizine, montelukast, and Fluticasone nasal (Flonase) - check RAST or referral to allergy / retail beauty specialist Dyslipidemia 10/31/2012 Assessment & Plan (10/26/2024 11:24 PM EDT): - last lipid profile in Apr 2022 - patient has been taking fenofibrate, but not on statin - will discuss after lab Assessment & Plan (01/16/2024 8:54 AM EDT): [...] to PT Asthma 1960 Assessment & Plan (10/29/2024 10:08 AM EDT): - followed by bucket chucker, Dr. Awad, [facility], last seen on 10/15/24 - continue mometasone (Asmanex) as maintenance - continue montelukast - continue albuterol neb and HFA prn - pending PFT Assessment & Plan (05/13/2024 1:54 PM EDT): [...] on RA. Hypertension 1960 Assessment & Plan (10/29/2024 10:09 AM EDT): -Goal BP < 140/90 per JNC-8 and < 130/80 per ACC/AHA guideline (Treatment threshold >= 130/80) - BP not at goal today. Second BP measurement was at goal. Patient has not been adherent to CPAP. -Continue working on lifestyle modifications -Recommended self-monitoring BP. -Continue current medications: continue Valsartan 160 mg - Add amlodipine 5 mg daily, 10/26/24 -Optimize Tx for DONA Assessment & Plan (06/04/2024 3:10 PM EST): [...] contacted for sleep study Assessment & Plan (10/29/2024 10:07 AM EDT): - sleep study at [facility] on 03/06/23 - report recommends in-lab for titration study or auto-PAP 6-20 cm H2O - script for AutoPAP was written in September 2023, still does not have one - recently seen by bucket chucker, and re-ordered sleep study / CPAP Assessment & Plan (05/13/2024 1:54 PM EDT): - sleep study at [facility] on 03/06/23, ordered by previous PCP - report recommends in-lab for titration study or auto-PAP 6-20 cm H2O - script for AutoPAP was written in September 2023, will check up on that Assessment & Plan (01/16/2024 11:20 AM EDT): - sleep study at [facility] on 03/06/23, ordered by previous PCP - report recommends in-lab for titration study or auto-PAP 6-20 cm H2O - script for AutoPAP was written in September 2023, will check up on that Assessment & Plan (10/06/2023 4:49 PM EDT): - sleep study at [facility] on 03/06/23, ordered by previous PCP - [...] Encounters Date Type Department Care Team Description 11/09/2024 3:00 PM EDT Clinical Support [facility] [address] [place] [address] Mendy Treadwell RN Hypertension, unspecified type 11/09/2024 Travel 11/09/2024 Refill [facility] [address] [place], [place] [phone] Vivien Ohara MD Seasonal allergic rhinitis, unspecified trigger 10/29/[address] [address] Vivien Ohara MD 10/27/2024 Orders Only [address] [address] Vivien Ohara MD 10/26/2024 11:30 AM EDT Office Visit [address] [address] Vivien Ohara MD Obstructive sleep apnea syndrome (Primary Dx); Mild intermittent asthma without complication; Hypertension, unspecified type; Gastroesophageal reflux disease, unspecified whether esophagitis present; Mixed stress and urge urinary incontinence; Type 2 diabetes mellitus without complication, without long-term current use of insulin ([facility]); Hypothyroidism, unspecified type; Dyslipidemia; Sensorineural hearing loss (SNHL) of both ears; Seasonal allergic rhinitis, unspecified trigger; Malodorous urine; Dietary counseling; Exercise counseling; Class 3 severe obesity with serious comorbidity and body mass index (BMI) of 40.0 to 44.9 in adult, unspecified obesity type (CMS/HCC); Multilevel degenerative disc disease; Fibromyalgia 10/26/2024 Orders Only [facility] [address] [place] [phone] Vivien Ohara MD 10/26/2024 Travel 10/26/2024 Refill [facility] [address] [place] [phone] Vivien Ohara MD Type 2 diabetes mellitus without complication, without long-term current use of insulin ([facility]) 10/21/2024 Telephone [facility] [address] [place] [phone] Vivien Ohara MD chart prep 10/21/2024 Refill [facility] [address] [place] [phone] Vivien Ohara MD Type 2 diabetes mellitus without complication, without long-term current use of insulin (CMS/[facility]); Fibromyalgia 10/18/2024 Orders Only GENERIC EXTERNAL DATA DEPARTMENT Provider, Generic External Data 10/17/2024 Refill [facility] [address] [place] [phone] Vivien Ohara MD Type 2 diabetes mellitus without complication, without long-term current use of insulin ([facility]) 09/22/2024 1:20 PM EST Office Visit [facility] [address] [place] [phone] Oksana Ernst ANP Dysuria (Primary Dx); Gastroesophageal reflux disease, unspecified whether esophagitis present; Vaginal itching; Type 2 diabetes mellitus with hyperlipidemia ([facility]) ([facility]) 09/09/2024 Refill [facility] [address] [place] [phone] Oksana Ernst ANP Primary hypertension 09/09/2024 Refill [facility] [address] [place] [address] Vivien Ohara MD Seasonal allergic rhinitis, unspecified trigger; Multinodular goiter; Primary hypertension 09/03/2024 Telephone [facility] [address] [place] [phone] Yuval Henry MD 09/01/2024 6:00 PM EST Office Visit [facility] [address] [place] [phone] Yuval Henry MD Subacute cough from Last 3 Months Immunizations Name Administration [...] Sign Reading Time Taken Comments Blood Pressure 142/92 11/09/2024 3:10 PM EDT Pulse 84 11/09/2024 3:10 PM EDT Temperature 36.3 ??C (97.3 ??F) 10/26/2024 1 1:39 AM EDT Respiratory Rate 18 11/09/2024 3:10 PM EDT Oxygen Saturation 98% 11/09/2024 3:10 PM EDT Inhaled Oxygen Concentration - - Weight 87.5 kg (192 lb 12.8 oz) 025 11:39 AM EDT Height 147.3 cm (4' 10 ) 10/26/2024 11: 39 AM EDT Body Mass Index 40.3 10/26/2024 11:39 AM EDT Plan of Treatment Upcoming Encounters Date Type Department Care Team (Late st Contact Info) Description 02/01/2025 3:00 PM EDT Office Visit [facility] [address] [place] [phone] Vivien Ohara MD [address] [place] [address] Health Maintenance Due Date Last Done Comments [...] 2019 Diabetes: Urine Protein Screening 05/01/2023 05/01/2022 COVID-19 Vaccine ( season) 2024 Influenza Vaccine (#1) 2024 05/25/2013 SDOH Screening 09/23/2024 09/23/2023 Alcohol/Substance Use Screening 01/15/2025 01/16/2024 Diabetes: Hemoglobin A1C 03/22/2025 025, 05/13/2024, 01/16/2024, Additional history exists Lipid Panel 05/13/2025 05/13/2024, 05/04/2022 Depression Screening 10/26/2025 10/26/2024, 10/27/19 Diabetes: Foot Exam 10/26/2025 10/26/2024, 10/26/2024, 10/26/2024, Additional history exists Tobacco Screening 10/29/2025 10/29/2024 Mammogram 01/06/2026 01/07/2024 Eye Exam 04/30/2026 04/30/2024, 10/0 09/2023, 04/30/2024, Additional history exists DTaP/Tdap/Td Vaccines [...] Routine 10/26/2024 12:00 AM EDT Malodorous urine CULTURE, URINE, ROUTINE Routine 10/26/2024 12:00 AM EDT HIGH SENSITIVITY TROPONIN I Routine 10/18/2024 4:10 [...] 2 diabetes mellitus with hyperlipidemia (CMS/HCC) (CMS/HCC) POCT GLYCATED HEMOGLOBIN, TOTAL Routine 09/22/2024 3:10 PM EST Type 2 diabetes mellitus with hyperlipidemia ([facility]) ([facility]) URINALYSIS, COMPLETE Routine 09/22/2024 1:52 PM EST [...] complication, without long-term current use of insulin ([facility]) Hypertension, unspecified type BI MAMMOGRAM SCREENING TOMOSYNTHESIS BILATERAL Routine 01/07/2024 12:55 PM EDT ALBUMIN, RANDOM URINE W/CREATININE Routine 05/01/2022 4:14 PM EDT from Last 3 Months or Most Recently Relevant to Health Maintenance Results * POCT Rapid Influenza B CHAPA ID NOW (10/26/2024 1:07 PM EDT) Only the most recent of2 resultswithin the time period is included. Influenza B Negative Negative, Indeterminate [facility] QC Media Lot # [id number] [facility] Lot# Expiration Date [facility] Swab 10/26/2024 1:07 PM EDT Vivien Ohara MD POINT OF CARE TEST ENTER/EDIT OR DERABLES Final Result Performing Organization Address [facility]/ZIP Co de Phone Number [facility] [address] [place] [phone] * POCT Rapid Influenza A CHAPA ID NOW (10/26/2024 1:07 PM EDT) Only the most recent of2 resultswithin the time period is included. [facility] Influenza A Negative Negative, Indeterminate [facility] QC Media Lot # [id number] [facility] Lot# Expiration Date [facility] Swab 10/26/2024 1:07 PM EDT Vivien Ohara MD POINT OF CARE TEST ENTER/EDIT OR DERABLES Final Result Performing Organization Address [facility] de Phone Number [facility] [address] [place] [phone] * POCT Rapid Strep A CHAPA ID NOW (10/26/2024 12:28 PM EDT) [facility] Rapid Strep A Screen Negative Negative, None Detected QC Media Lot # [id number] Lot# Expiration Date Swab 10/26/2024 12:2 8 PM EDT Vivien Ohara MD POINT OF CARE TEST ENTER/EDIT OR DERABLES Final Result * POCT Rapid Covid-19 BinaxNOW (10/26/2024 12:28 PM EDT) Only the most recent of2 resultswithin the time period is included. [facility] Rapid COVID Ag Negative QC Media Lot # [id number] Lot# Expiration Date [id number] Swab 10/26/2024 12:2 8 PM EDT Vivien Ohara MD POINT OF CARE TEST ENTER/EDIT OR DERABLES Final Result * (ABNORMAL) Urinalysis, Complete, with Reflex to Culture (10/26/2024 12:00 AM EDT) Pathologist [facility] Color Urine Yellow [facility] Appearance Urine Clear [facility] PH 6.0 5.0 - 9.0 [facility] Glucose Urine UA 100(A) Negative mg/dL [facility] Urine Blood Small (1+)(A) Negative [facility] Specific [place] - Urine 1.010 1.005 - 1.025 [facility] Urine Protein Negative Neg-Trace mg/dL [facility] Urine Ketones Negative Negative mg/dL [facility] Nitrite Urine Negative Negative [facility] Leukocyte Esterase Urine Large (3+)(A) Negative [facility] RBC Urine 0-2 0 - 2 /HPF [facility] Urine WBC 0-5 0 - 5 /HPF [facility] Urine Squamous Epithelial Cell 6-10 0 - 2 /HPF [facility] Urine Bacteria 1+ None Seen [facility] Hyaline Casts, Urine 0-2 0 - 2 /LPF [facility] Urine 10/26/2024 10/26/2024 Narrative [facility] - 10/26/2024 4:50 PM EDT Urine, Clean Catch Vivien Ohara MD LAB URINE ORDERABLES Final Resul t [facility] [address] [place] [phone] * Culture, Urine, Routine (10/26/2024 12:00 AM EDT) Only the most recent of2 resultswithin the time period is included. Urine Urine specimen obtained by clean catch procedure / Unknown 10/26/2024 10/26/2024 Comment:UACC Narrative [facility] - 10/28/2024 10:47 AM EDT Urine Culture Report Result Urine Culture 10,000 to 50,000 cfu/ml Urine Culture Mixed bacterial brigitte characteristic of Urine Culture urogenital contamination. Specimen Source: Urine clean catch us Vivien Ohara MD LAB MICROBIOLOGY - GENERAL ORDER HALINA Final Result Performing Organization Address [facility] Co de Phone Number [facility] [address] [place] [phone] * High Sensitivity Troponin I (10/18/2024 4:10 PM EDT) Only the most recent of2 resultswithin the time period is included. TROPONIN I HIGH SENSITIVITY <2.7 <3.5 - 17.0 ng/L [facility] Comment:The [place] high sens itivity Troponin-I results should beused in conjunction with other diagnostic information suchas ECG, clinical observations and information, and patientsymptoms to aid in the diagnosis of [place]. 10/18/2024 4:10 PM EDT 10/18/2024 4:13 PM EDT us Generic External Data Provider LAB BLOOD ORDERAB LES Final Result Performing Organization Address [facility] Co de Phone Number [facility] [address] [place] [phone] * TSH with Reflex to Free T4 (10/18/2024 2:03 PM EDT) TSH reflex Free T4 2.92 0.32 - 4.0 uIU/mL [facility] 10/18/2024 2:03 PM EDT 10/18/2024 2:08 PM EDT us Generic External Data Provider LAB BLOOD ORDERAB LES Final Result Performing Organization Address [facility]/State/ZIP Co de Phone Number [facility] [address] [place] [phone] * (ABNORMAL) CBC auto differential (10/18/2024 2:03 PM EDT) White Blood Count 10.4 4.8 - 10.8 X10*3/uL [facility] Red Blood Count 4.55 4.20 - 5.50 X10*6/uL [facility] Hemoglobin 13.2 12.0 - 16.0 g/dl [facility] Hematocrit 38.1 37.0 - 47.0 % [facility] Mean Corpuscular Volume 83.7 80.0 - 98.0 fL [facility] Mean Corpuscular Hemoglobin 29.0 27.0 - 33.0 pg [facility] Mean Corpuscular HGB Conc 34.6 31.0 - 35.0 g/dl [facility] Red Cell Distribution Width 13.7 11.0 - 16.0 % [facility] Platelet Count 234 160 - 400 X10*3/uL [facility] Mean Platelet Volume 9.7 9.4 - 12.3 fL [facility] Neutrophils Percent Auto 61.7 45 - 73 % [facility] Imm Gran Pct Auto 0.5(H) 0.0 - 0.4 % [facility] Lymphocytes Percent Auto 27.0 20 - 40 % [facility] Monocytes Percent Auto 7.6 2 - 11 % [facility] Eosinophils Percent Auto 2.9 0 - 4 % [facility] Basophils Percent Auto 0.3 0 - 2 % [facility] NRBC Pct Auto 0.0 0.0 - 0.2 /100WBC [facility] Neutrophils Absolute Auto 6.4 2.0 - 8.3 x10*3/uL [facility] Imm Gran Abs Auto 0.05(H) 0.00 - 0.03 X10*3/uL [facility] Lymphocytes Absolute Auto 2.8 1.2 - 4.9 X10*3/uL [facility] Monocytes Absolute Auto 0.8 0.1 - 1.2 X10*3/uL [facility] Eosinophils Absolute Auto 0.3 0.0 - 0.4 X10*3/uL [facility] Basophils Absolute Auto 0.0 0.0 - 0.2 X10*3/uL [facility] NRBC Abs Auto 0.000 0.0 - 0.012 X10*3/uL [facility] 10/18/2024 2:03 PM EDT 10/18/2024 2:08 PM EDT Generic External Data Provider LAB BLOOD ORDERAB LES Final Result Performing Organization Address [facility]/ZIP Co de Phone Number [facility] [address] [place] [phone] * Magnesium (10/18/2024 2:03 PM EDT) Magnesium 1.7 1.6 - 2.6 mg/dL [facility] 10/18/2024 2:03 PM EDT 10/18/2024 2:08 PM EDT Generic External Data Provider LAB BLOOD ORDERAB LES Final Result Performing Organization Address [facility] Co de Phone Number [facility] [address] [place] [phone] * Lipase (10/18/2024 2:03 PM EDT) Lipase 23 8 - 78 U/L [facility] 10/18/2024 2:03 PM EDT 10/18/2024 2:08 PM EDT Generic External Data Provider LAB BLOOD ORDERAB LES Final Result Performing Organization Address [facility] [facility] Co de Phone Number [facility] [address] [place] [phone] * (ABNORMAL) Comprehensive Metabolic Panel (10/18/2024 2:03 PM EDT) Sodium 140 135 - 145 mmol/L [facility] Potassium 3.9 3.3 - 5.1 mmol/L [facility] Chloride 109(H) 96 - 108 mmol/L [facility] Carbon Dioxide 25 22 - 29 mmol/L [facility] Anion Gap 10(L) 12 - 20 [facility] Urea Nitrogen (BUN) 13 9 - 16 mg/dL [facility] Creatinine, Serum 0.74 0.5 - 1.4 mg/dL [facility] Creatinine Clr Calc Pharmacy 70.6 [facility] Comment:Provided height and weight: 147.32 cm,86.2 kg.eGFR (calculated from the MDRD study equation) and eCrCl(calculated from the Cockcroft-Gault equation) are based ondifferent parameters and may not yield comparable results.If eCrCl result is absurd, please check patient'sheight/weight. Estimated Glomerular Filt Rate >60 [facility] Comment:Chronic Kidney Disea se: Estimated GFR < 60 mL/min/1.45v5Sxyidy Kidney Disease: Estimated GFR < 15 mL/min/1.73m2 Glucose 151(H) 60 - 115 mg/dL [facility] Calcium 9.0 8.4 - 10.2 mg/dL [facility] Bilirubin, Total 0.3 0.0 - 1.0 mg/dL [facility] Aspartate Amino Transferase 20 5 - 31 U/L [facility] Alanine Aminotransferase 16 0 - 31 U/L [facility] Total Protein 7.8 6.5 - 8.0 g/dL [facility] Albumin Level 3.7 3.5 - 5.0 g/dL [facility] Alkaline Phosphatase 89 39 - 117 U/L [facility] 10/18/2024 2:03 PM EDT 10/18/2024 2:08 PM EDT us Generic External Data Provider LAB BLOOD ORDERAB LES Final Result [facility] [address] [place] [address] [phone] * XR Chest 2 Views (10/18/2024 1:55 PM EDT) Only the most recent of2 resultswithin the time period is included. Anatomical Region Laterality Modality Chest Radiographic Diana ging 10/18/2024 1:55 PM EDT Narrative 10/18/2024 1:56 PM EDT ? [facility] ?[address] ?[place] [address] ?XRay Report ? Signed ? Patient: Deleon,Lia ?MR#: [id number] ?? 910 ? : 1960 ?Acct:[id number] ? Age/Sex: 64 / F ?ADM Date: 10/18/24 ? Loc: HO.ED ? Attending Dr: ? Ordering Physician: Ligia Dale ?? Date of Service: 10/18/24 ?? Procedure(s): XR chest 2V ?? Accession Number(s): [id number] ? cc: Ligia Dale; Vivien Ohara MD [...] by Beth Adams MD in OV> ? 10/18/245 ? DD/ ? TD/TT: 10/18/245 ? Deputy Administrator: ? Procedure Note Ariela Arzola - 10/18/[address] [address] XRay Report Signed Patient: Lia DeleonMR#: [id number] 910 : 9Acct:[id number] Age/Sex: 64 / FADM Date: 10/18/24 Loc: HO.ED Attending Dr: Ordering Physician: Ligia Dale Date of Service: 10/18/24 Procedure(s): XR chest 2V Accession Number(s): [id number] cc: Ligia Dale; Vivien Ohara MD CLINICAL HISTORY: left sided chest pain Chest Radiographs, 2 views Comparison: 09/02/24 Findings: No cardiomegaly. Normal mediastinal contours. No pneumothorax. No opacity. No pleural effusion. Normal upper abdomen. No acute fracture. Impression: No acute findings. This document has been electronically signed by: Beth Broderick MD on 10/18/2024 13:55:00 Dictated By: Beth Adams MD Signed By: <Electronically signed by Beth Adams MD in OV> 10/18/24 1355 DD/ 54 TD/TT: 10/18/24 135 Deputy Administrator: [facility] External Provider IMG XR PROCEDURES Edited Result - Final * SARS-CoV-2 RNA, Influenza A/B, and RSV RNA, Ql NAAT (10/18/2024 12:50 PM EDT) Influenza A PCR NEGATIVE Negative [facility] Influenza B PCR NEGATIVE Negative [facility] Resp Syncy Virus RNA Qual PCR NEGATIVE Negative [facility] SARS COV2 PCR NEGATIVE Negative [facility] Comment:All test results mus t be [...] use by authorized laboratories.Testing performed on the [employer] GeneXpert utilizingreal-time RT-PCR.All SARS CoV2 and positive influenza A/B results arereported to [facility]. 10/18/2024 12:5 0 PM EDT 10/18/2024 12:[address] [facility] External Data Provider LAB MICROBIOLOGY - GENERAL ORDERABLES Final Result [facility] [address] [place] [address] [phone] * (ABNORMAL) POCT HGB A1C (09/22/2024 [...] specimen / Unknown 09/22/2024 3:10 PM EST [facility] Ernst ANP POINT OF CARE TEST ENTER/EDIT OR DERABLES Final Result * Bacterial Vaginosis Panel (09/22/2024 1:52 PM EST) Pathologist [facility] TRICHOMONAS VAGINALIS DETECTION BY PCR NOT DETECTED [...] 09/22/2024 4:10 PM EST Oksana Ernst [facility] LAB MICROBIOLOGY - GENERAL ORDER HALINA Final Result Performing Organization Address [facility] de Phone Number [facility] [address] [place] [phone] * (ABNORMAL) Urinalysis Complete (09/22/2024 1:52 PM EST) Pathologist [facility] Color Urine Yellow [facility] Appearance Urine Clear [facility] PH 6.5 5.0 - 9.0 [facility] Glucose Urine UA Negative Negative mg/dL [facility] Urine Blood Small (1+)(A) Negative [facility] Specific [place] - Urine 1.010 1.005 - 1.025 [facility] Urine Protein Negative Neg-Trace mg/dL [facility] Urine Ketones Negative Negative mg/dL [facility] Nitrite Urine Negative Negative [facility] Leukocyte Esterase Urine Large (3+)(A) Negative [facility] RBC Urine 3-5(A) 0 - 2 /HPF [facility] Urine WBC >50(A) 0 - 5 /HPF [facility] Urine Squamous Epithelial Cell 11-20 0 - 2 /HPF [facility] Urine Bacteria 1+ None Seen [facility] Hyaline Casts, Urine 0-2 0 - 2 /LPF [facility] Urine (Urine, Random) 09/22/2024 1:52 PM EST 09/22/2024 4:10 PM EST Oksana Ernst ANP LAB URINE ORDERABLES Final Resul t Performing Organization Address [facility] Co de Phone Number [facility] [address] [place] [phone] * (ABNORMAL) Respiratory Viral Panel PCR (09/01/2024 12:00 AM EST) Adenovirus PCR Not Detected Not Detect. [facility] [...] testing should be considered.Results reported to ALAN BENTLEY.This test has been authorized by the FDA [...] Resp Panel NA Note See Note H [facility] Comment:All results must be correlated with [...] assay is performed by Multiplexed PCR, utilizing [employer] Film Array. 09/01/2024 09/01/2024 us Yuval Henry MD LAB BLOOD ORDERABLES Final Resul t [facility] [address] [place] [address] [phone] * (ABNORMAL) Lipid Panel with Reflex to Direct LDL (05/13/2024 11:00 AM EDT) Triglycerides 200(H) <150 mg/dL [facility] Comment:Desirable Triglyceri de: less than 150 [...] 190 mg/dL HDL Cholesterol 45 >40 mg/dL [facility] Comment:Desirable HDL: great er than 40 mg/dL Note: This HDL assay may give artificially low results in patients with liver disease. Blood 05/13/2024 11:0 0 AM EDT 05/13/2024 11:37 AM EDT us Vivien Ohara MD LAB BLOOD ORDERABLES Final Resul t [facility] [address] [place] [address] [phone] * BI Mammogram Screening Tomosynthesis Bilateral (01/07/2024 12:55 PM EDT) Anatomical Region Laterality Modality Breast Bilateral Mammography 01/07/2024 12:5 5 PM EDT Narrative 02/06/2024 9:41 AM EDT ? [facility] ? [address] ?[place] [address] ? Mammography Report ? Signed ? Patient: Deleon,Lia ?MR#: [id number] ?? 910 ? : 1960 ?Acct:[id number] ? Age/Sex: 63 / F ?ADM Date: 01/07/24 ? Loc: HO.MAMMO ? Attending Dr: Vivien Ohara MD ? Ordering Physician: Vivien Ohara MD ?Results: 1Negative ? Date of Service: 01/07/24 ?Follow Up: 1 Year From Orig ?? inal Mammogram ? Procedure(s): MM tomosynthesis screening BI ?? Accession Number(s): [id number] ? cc: Vivien Ohara MD ? EXAMINATION: [...] 0937 ? DD/ 1255 ? TD/TT: ? Deputy Administrator: ? Procedure Note Dariusz, Image - 02/06/2024 [facility] [address] [place] [address] [place] [address] Mammography Report Signed Patient: Nathanael Deleon#: [id number] 910 : 9Acct:[id number] Age/Sex: 63 / FADM Date: 01/07/24 Loc: BECK Attending Dr: Vivien Ohara MD Ordering Physician: Vivien Oharaesults: 1Negative Date of Service: 01/07/24Follow Up: 1 Year From Orig inal Mammogram Procedure(s): MM tomosynthesis screening BI Accession Number(s): [id number] cc: Vivien Ohara MD EXAMINATION: MM SCREENING [...] in OV> 02/06/24 0937 DD/ 1255 TD/TT: Deputy Administrator: Vivien Ohara MD IM BI PROCEDURES Final [...] LABS 05/01/2022 4:14 PM EDT Kandi Vanessa GENERAL SURGEON LAB URINE ORDERABLES Final Result CONVERTED LEGACY LABS from Last 3 Months or Most Recently Relevant to Health Maintenance Insurance [facility] [employer] OPTIONS (O D-SNP) [place] [id number] Care Teams Records Associate Relationship Specialty Start Date End Date Vivien Ohara MD [address] [place] [address] PCP - General Family Medicine 08/19/23
--- OUTSIDE RECORDS SUMMARY | 2024-11-23 16:52 | XMS_ITS | Encounter Summary ---
Author Organization [email or web address] Address [address] [facility] 7t [place] [address] Care Team Providers Care Drywall Stripper Helper Name Role Phone Kandi Vanessa Ciera NORTONP Primary Care Provider [phone] Lakeisha Yadav NP Primary Care Provider [phone] Vivien Ohara MD Primary Care Provider [phone] Reason for Visit * Reason Comments Med Refill Encounter Details Date Type Department Care Team ([facility] Contact Info) Description 08/14/2022 Refill [facility] [address] [place] [address] Hailey Gomez MD [address] [place] [address] Cough in adult Social History Tobacco Use [...] Upcoming Encounters Date Type Department Care Team ([facility] Contact Info) Description 02/01/2025 3:00 PM EDT Office Visit [facility] [place] [address] [place] [address] documented as of this encounter Visit Diagnoses Diagnosis Cough in adult documented in this encounter Care Teams Drywall Stripper Helper Relationship Specialty Start Date End Date Kandi Vanessa FNP PCP - General Family Medicine 03/07/22 05/02/23 [place] [address] PCP - General Family Medicine 05/03/23 08/18/23 [place] [address] PCP - General Family Medicine 08/19/23 documented as of this encounter
--- OUTSIDE RECORDS SUMMARY | 2024-11-23 16:52 | XMS_ITS | Encounter Summary ---
Author Organization [employer] Address [address] [facility] [address] 7t [place] [address] Care Team Providers Care Venetian Blind Installer Name Role Phone Lakeisha Yadav NP Primary Care Provider [phone] Vivien Ohara MD Primary Care Provider [phone] Reason for Visit * Reason Comments Med Refill Encounter Details Date Type Department Care Team ([facility] st Contact Info) Description 08/17/2023 Refill [facility] [address] [place] [address] Name, MD Dylon [address] [place] [address] Mild intermittent asthma with acute exacerbation Social [...] Description 02/01/2025 3:00 PM EDT Office Visit [facility] MED[facility]INE [address] [place] [address] Vivien Ohara MD [address] [place] [address] documented as of this encounter Visit Diagnoses Diagnosis Mild intermittent asthma with acute exacerbation documented in this encounter Additional Health Concerns Assessment Noted Time PHQ-9 Depression Total Score: 0 03/14/20 23 1:40 PM EDT documented as of this encounter Care Teams Venetian Blind Installer Relationship Specialty Start Date End Date Lakeisha Yadav NP [address] [place] [address] PCP - General Family Medicine 05/03/23 08/18/23 Vivien Ohara MD [address] [place] [address] PCP - General Family Medicine 08/19/23 documented as of this encounter
--- OUTSIDE RECORDS SUMMARY | 2024-11-23 16:52 | XMS_ITS | Encounter Summary ---
Author Organization [employer] Address [address] [facility] 7 [place] [address] Care Team Providers Care Raiser Helper Name Role Phone Kandi Vanessa Primary Care Provider [phone] Lakeisha Yadav NP Primary Care Provider [phone] Vivien Ohara MD Primary Care Provider [phone] Reason for Visit * Reason Onset Date Comments Results 08/03/2022 Encounter Details Date Type Department Care Team ([facility] st Contact Info) Description 08/03/[address] [facility] [address] [place] [address] Kandi Vanessa FNP [address] [place] [address] [place] [address] Results Social History Tobacco Use Types Packs/Day [...] Description 02/01/2025 3:00 PM EDT Office Visit [facility] [address] [place] [address] Vivien Ohara MD [address] [place] [address] documented as of this encounter Visit Diagnoses Not on filedocumented in this encounter Care Teams Raiser Helper Relationship Specialty Start Date End Date Kandi Vanessa FNP PCP - General Family Medicine 03/07/22 05/02/23 Lakeisha Yadav NP [address] [place] [address] PCP - General Family Medicine 05/03/23 08/18/23 Vivien Ohara MD [address] [place] [address] PCP - General Family Medicine 08/19/23 documented as of this encounter
--- OUTSIDE RECORDS SUMMARY | 2024-11-23 16:53 | XMS_ITS | Encounter Summary ---
Author Organization [employer] Address [address] [place] [address] 7 [place] [address] Care Team Providers Care River Rat Name Role Phone Vivien Ohara MD Primary Care Provider [phone] Reason for Referral * Consultation (Routine) - Closed Specialty Diagnoses / Procedures Referred By Contac t Referred To Contact Pharmacy Diagnoses Type 2 diabetes mellitus without complication, without long-term current use of insulin (CMS/HCC) Hypertension, unspecified type Vivien Ohara MD [address] [place] [address] Phone: tel: fax: Referral ID Status Reason Start Date Expiration Date V isits Requested Visits Authorized [id number] Closed Continuity of Care 04/29/2024 04/29/2025 6 6 Encounter Details Date Type Department Care Team (Late st Contact Info) Description 04/29/2024 Orders Only [facility] [address] [place], [place] [phone] Vivien Ohara MD [address] [place], [place] [phone] Type 2 diabetes mellitus without complication, without [...] Description 02/01/2025 3:00 PM EDT Office Visit [facility] [address] [place], [place] [phone] Vivien Ohara MD [address] [place] [address] Scheduled Referrals Name Type Priority Associated Diagnoses Orde r Schedule Referral to Pharmacy [place] Outpatient Referral Routine Type 2 diabetes mellitus without complication, without long-term current use of insulin ([facility]) Hypertension, unspecified type Ordered: 04/29/2024 documented as of this encounter Visit Diagnoses Diagnosis Type 2 diabetes mellitus without complication, without long-term current use of insulin (CMS/[facility])- Primary Hypertension, unspecified type documented in this encounter Additional Health Concerns Assessment Noted Time PHQ-9 Depression Total Score: 0 03/14/20 23 1:40 PM EDT documented as of this encounter Care Teams River Rat Relationship Specialty Start Date End Date Vivien Ohara MD [address] [place] [address] PCP - General Family Medicine 08/19/23 documented as of this encounter
--- OUTSIDE RECORDS SUMMARY | 2024-11-23 16:53 | XMS_ITS | Encounter Summary ---
Author Organization [employer] Address [address] [facility] [address] 7t [place] [address] Care Team Providers Care Stock Analyst Name Role Phone Vivien Ohara MD Primary Care Provider [phone] Reason for Visit * Reason Comments Med Refill Encounter Details Date Type Department Care Team ([facility] Contact Info) Description 05/14/[address] [facility] [address] [place], [place] [phone] Vivien Ohara MD [address] [place], [place] [phone] Mild intermittent asthma with acute exacerbation Social [...] 02/01/2025 3:00 PM EDT Office Visit [facility] [address] [place] [address] Vivien Ohara MD [address] [place] [address] documented as of this encounter Visit Diagnoses Diagnosis Mild intermittent asthma with acute exacerbation documented in this encounter Additional Health Concerns Assessment Noted Time PHQ-9 Depression Total Score: 0 03/14/20 23 1:40 PM EDT documented as of this encounter Care Teams Stock Analyst Relationship Specialty Start Date End Date Vivien Ohara MD [address] [place] [phone] PCP - General Family Medicine 08/19/23 documented as of this encounter
--- OUTSIDE RECORDS SUMMARY | 2024-11-23 16:53 | XMS_ITS | Encounter Summary ---
Author Organization [employer] Address [address] [facility] 7t [place] [address] Care Team Providers Care Life Coach Name Role Phone Vivien Ohara MD Primary Care Provider [phone] Reason for Visit * Reason Comments Med Refill Encounter Details Date Type Department Care Team ([facility] Contact Info) Description 05/04/2024 Refill [facility] [address] [place], [place] [phone] Vivien Ohara MD [address] [place], [place] [phone] Social History Tobacco Use Types Packs/Day Years [...] Description 02/01/2025 3:00 PM EDT Office Visit [facility] [address] [place] [address] Vivien Ohara MD [address] [place] [address] documented as of this encounter Visit Diagnoses Not on filedocumented in this encounter Additional Health Concerns Assessment Noted Time PHQ-9 Depression Total Score: 0 03/14/20 23 1:40 PM EDT documented as of this encounter Care Teams Life Coach Relationship Specialty Start Date End Date Vivien Ohara MD [address] [place] [address] PCP - General Family Medicine 08/19/23 documented as of this encounter
--- OUTSIDE RECORDS SUMMARY | 2024-11-23 16:53 | XMS_ITS | Encounter Summary ---
Author Organization [employer] Address [address] [facility] 7t [place] [address] Care Team Providers Care Physicist Astrophysics Name Role Phone Vivien Ohara MD Primary Care Provider [phone] Reason for Visit * Reason Onset Date Comments Med Refill 03/10/2024 Encounter Details Date Type Department Care Team ([facility] Contact Info) Description 03/10/2024 Refill [facility] [address] [place], [place] [phone] Vivien Ohara MD 230 [place], [place] [phone] Primary osteoarthritis involving multiple joints Social History [...] Description 02/01/2025 3:00 PM EDT Office Visit [facility] [address] [place] [address] Vivien Ohara MD [address] [place] [address] documented as of this encounter Visit Diagnoses Diagnosis Primary osteoarthritis involving multiple joints documented in this encounter Additional Health Concerns Assessment Noted Time PHQ-9 Depression Total Score: 0 03/14/20 23 1:40 PM EDT documented as of this encounter Care Teams Physicist Astrophysics Relationship Specialty Start Date End Date Vivien Ohara MD [address] [place] [address] PCP - General Family Medicine 08/19/23 documented as of this encounter
== END 2024-11-23 14:57 | disposition home or self-care (01) ==
PROVIDERS: PCP Family Medicine; Visit Provider Urology
DX: R31.29 Other microscopic hematuria (principal); M54.9 Dorsalgia, unspecified; N32.81 Overactive bladder; N76.0 Acute vaginitis; N30.20 Other chronic cystitis without hematuria; Z13.9 Encounter for screening, unspecified
CPT/HCPCS: 99214

== ENCOUNTER 2024-11-27 | Outpatient (REF) | payer OTHER, SELFPAY | END 2024-11-27 00:01 | disposition home or self-care (01) | LOC: CF | PROVIDERS: PCP Family Medicine; Visit Provider Registered Nurse Emergency | DX: M47.812 Spondylosis without myelopathy or radiculopathy, cervical region (principal); M47.816 Spondylosis without myelopathy or radiculopathy, lumbar region; M79.18 Myalgia, other site; J45.909 Unspecified asthma, uncomplicated; J84.10 Pulmonary fibrosis, unspecified; E66.9 Obesity, unspecified; Z68.41 Body mass index [BMI] 40.0-44.9, adult | CPT/HCPCS: 99202 ==

== ENCOUNTER 2024-11-27 13:08 | Outpatient (AMB) | payer OTHER, SELFPAY ==
--- NOTE | 2024-11-27 13:12 | MHC.OFFVIS ---
Vital Signs 11/27/24 13:24 11/27/24 14:16 11/27/24 14:21 Height 4 ft 10 in Weight 192 lb 4 oz BMI 40.2 BP 201/93 H 224/90 H 184/93 H Blood Pressure Location Lt brachial Lt brachial Rt radial Position Sitting Sitting Sitting Pulse 74 Pulse Source Pulse Oximeter Pulse Oximetry (%) 98 Oxygen Delivery Method Room Air Comment bp recheck bp recheck Intake Visit Reasons: Neck/back pain Intake Note: Pain today 03/07 Premix Operator Concentrate Required: No Accompanied by: Self / Same As Patient Allergies penicillin V Allergy (Unknown, Verified 11/23/24 14:07) Anaphylaxis Penicillins Allergy (Unknown, Verified 11/23/24 14:07) Rash Sulfa (Sulfonamide Antibiotics) Allergy (Unknown, Verified 11/23/24 14:07) Anaphylaxis sulfamethoxazole Allergy (Unknown, Verified 11/23/24 14:07) rash trimethoprim Allergy (Unknown, Verified 11/23/24 14:07) rash HPI Comments Details: The patient is a 64-year-old female presenting with chronic lower back pain persisting for approximately 50 years, dating back to childhood experiences of convulsions and associated treatments. Throughout her life, she notes falls which exacerbated her condition. No definitive diagnosis was made for her childhood symptoms, but current evaluations describe degenerative changes and fibromyalgia as contributing factors. She reports persistent, severe pain involving her entire spine, with episodes of chest pain resembling cardiac issues, for which fibromyalgia has been cited. The pain impacts mobility, with significant discomfort aggravated by physical activity and prolonged positions, leading her to occasionally use a scooter for shopping. Despite trying various therapies, pain remains substantial, and management with standard analgesics provides limited relief. - Onset: Approximately 50 years ago, present since childhood. - Quality: Described as widespread across the lower back, extends up to the neck, and affects the entire spine. - Primary Location: Lower back, with radiation to the entire spine and neck. - Exacerbating Factors: Movement (walking, standing, sitting), prolonged sitting, twisting motions. - Relieving Factors: Limited relief from topical treatments like Biofreeze; occasional minor relief from ibuprofen. - Interference: Significant impact on movement, daily activities, ambulation, and periodic need for mobility aids. - Affect: Pain significantly affects mood and psychological wellbeing, with severe limitations on mobility and activities. - Analgesia: Uses vejx-rgs-zzkynch ibuprofen and topical Biofreeze, achieving limited relief; rated pain as 10/10 recently. - Adverse Effects: No specific adverse effects from current pain management were discussed. - Activities of Daily Living: Severely hindered; requires periodic use of scooter; significant impairment in ambulation. - Aberrant Drug Related Behaviors: No aberrant behaviors noted or discussed. [facility] Medical History Pulmonary fibrosis Asthma DONA (obstructive sleep apnea) Obesity (BMI 30-39.9) Gastritis Social History Patient Tobacco Use Status: Never used Tobacco Review of Systems Const Details: - Musculoskeletal: Reports significant lower back pain radiating to the spine and neck; difficulty with physical function due to pain. - Neurological: Reports chronic pain associated with fibromyalgia. - Genitourinary: Reports trace hematuria with a confirmed normal kidney function. - Cardiovascular: Reports episodes of chest pain resembling heart attack; attributed to fibromyalgia. Physical Exam Vital Signs: Last Vital Signs Pulse 74 11/27/24 13:24 BP 184/93 H 11/27/24 14:21 Pulse Ox 98 11/27/24 13:24 Oxygen Delivery Method Room Air 11/27/24 13:24 BMI result Body Mass Index 40.2 - Vitals- Blood pressure initially 201/93. Repeat 184/93. Asymptomatic. General: awake, alert, oriented. Answers questions appropriately. Fully engaged in examination. Skin: warm, dry, intact HEENT: Normocephalic. Hearing intact. Cardiac: External chest normal in appearance. Respiratory: No cough, audible wheezing or stridor. Abdomen: without gross distension. MS: No obvious swelling or deformities. Able to transition from sit to stand unassisted. Ambulates with bilaterally normal heel strike and toe off Tenderness over midline lumbar vertebrae and lumbar paraspinal muscles Facet loading positive SLR negative Bilateral lower extremity strength 5/5 Neurological: Oriented to person, place, time and situation. Thought process intact. No gait abnormalities appreciated. Psychiatric: Appropriate mood and affect. Good judgment and insight. Assessment & Plan Assessment & Plan (1) Lumbar spondylosis: Code(s): M47.816 - Spondylosis without myelopathy or radiculopathy, lumbar region Category: Medical (2) Cervical spondylosis: Code(s): M47.812 - Spondylosis without myelopathy or radiculopathy, cervical region Category: Medical (3) Myofascial muscle pain: Comment: Back Code(s): M79.18 - Myalgia, other site Category: Medical Plan I will order updated cervical and lumbar spine X-rays due to the patient's chronic lower back pain and previous X-rays being outdated. A muscle relaxant will be prescribed to relieve muscular tension. Physical therapy will be initiated to address musculoskeletal contributions, which will also serve as a prerequisite for any interventional procedures such as injections, which I may consider later based on therapeutic response. Control of her blood pressure is essential, so I will include a recheck before the end of this visit to verify adequacy of the control measures. During the visit, I discussed with the patient the results of her recent lab findings showing normal kidney function, despite trace hematuria noted. I explained the benefits of ordering updated spinal imaging to assess the current state of her degenerative conditions. We discussed employing physical therapy as a step towards possible future interventions like injections while initiating muscle relaxant therapy to manage muscular tension more immediately. I addressed the importance of managing her blood pressure, emphasizing that severe elevations can complicate chronic pain management, and instructed her on the use of current analgesics with adequate explanation of their benefits and proper dosing. Consent for the plan was obtained, recognizing that each step focused on maximizing her functional improvement and pain relief. Patient was informed and verbally consented to the use of an ambient scribe for clinic note documentation during this visit. Orders: Orders XR lumbar spine 4V min Today M47.816 - Spondylosis without myelopathy or radiculopathy, lumbar region XR cervical spine w flex/ext Today M47.812 - Spondylosis without myelopathy or radiculopathy, cervical region PT Evaluation and Treatment Today M47.812 - Spondylosis without myelopathy or radiculopathy, cervical region, M47.816 - Spondylosis without myelopathy or radiculopathy, lumbar region, M79.18 - Myalgia, other site Medications: New tizanidine 2 mg PO TID PRN 90 tabs 0RF muscle spasticity Discontinued cyclobenzaprine Discontinued Reason: Doctor's Order 5 mg PO TID PRN 10 tabs 0RF muscle spasm Patient Instructions: - Take medications as prescribed, including any ytsv-jlg-laxvjmk pain relief as advised. - Schedule and attend X-ray imaging appointments for spine assessments. - Participate in assigned physical therapy sessions. - Monitor blood pressure at home and seek medical advice if persistently elevated. - Use prescribed muscle relaxant as directed to manage muscle tension. - Return for follow-up after physical therapy to discuss possible further interventions. Coding Level of Care Code New Pt Level 4 (97386) Complex EM visit Add On G2211 Diagnoses Lumbar spondylosis M47.816 Cervical spondylosis M47.812 Myofascial muscle pain M79.18
[2024-11-27 13:24] VITALS: BP 201/93; PULSE 74; O2SAT 98; BMI 40.2
--- OUTSIDE RECORDS SUMMARY | 2024-11-27 13:31 | XMS_ITS | Encounter Summary ---
Author Organization [employer] Address [address] [place] [address] 7 [place] [address] Care Team Providers Care Fiber Product Cutting Machine Operator Name Role Phone Vivien Ohara MD Primary Care Provider [phone] Reason for Referral * Consultation (Routine) - Closed Specialty Diagnoses / Procedures Referred By Contac t Referred To Contact Pharmacy Diagnoses Type 2 diabetes mellitus without complication, without long-term current use of insulin (CMS/HCC) Hypertension, unspecified type Vivien Ohara MD [address] [place] [address] Phone: tel: fax: Referral ID Status Reason Start Date Expiration Date V isits Requested Visits Authorized [id number] Closed Continuity of Care 04/29/2024 04/29/2025 6 6 Encounter Details Date Type Department Care Team (Late st Contact Info) Description 04/29/2024 Orders Only [facility] [address] [place], [place] [phone] Vivien Ohara MD [address] [place], [place] [phone] Type 2 diabetes mellitus without complication, without [...] Description 02/01/2025 3:00 PM EDT Office Visit [facility] [address] [place], [place] [phone] Vivien Ohara MD [address] [place] [address] Scheduled Referrals Name Type Priority Associated Diagnoses Orde r Schedule Referral to Pharmacy [place] Outpatient Referral Routine Type 2 diabetes mellitus without complication, without long-term current use of insulin ([facility]) Hypertension, unspecified type Ordered: 04/29/2024 documented as of this encounter Visit Diagnoses Diagnosis Type 2 diabetes mellitus without complication, without long-term current use of insulin ([facility])- Primary Hypertension, unspecified type documented in this encounter Additional Health Concerns Assessment Noted Time PHQ-9 Depression Total Score: 0 03/14/20 23 1:40 PM EDT documented as of this encounter Care Teams Fiber Product Cutting Machine Operator Relationship Specialty Start Date End Date Vivien Ohara MD [address] [place] [address] PCP - General Family Medicine 08/19/23 documented as of this encounter
--- OUTSIDE RECORDS SUMMARY | 2024-11-27 13:31 | XMS_ITS | Encounter Summary ---
Author Organization [employer] Address [address] [place] [address] Care Team Providers Care Top Screw Name Role Phone Vivien Ohara MD Primary Care Provider [phone] Reason for Visit * Reason Comments Med Refill Encounter Details Date Type Department Care Team ([facility] Contact Info) Description 05/14/2024 Refill [facility] [address] [place], [place] [phone] Vivien Ohara MD [address] [place], [place] [phone] Mild intermittent asthma with acute exacerbation Social [...] Description 02/01/2025 3:00 PM EDT Office Visit [facility] [address] [place] [address] Vivien Ohara MD [address] [place] [address] documented as of this encounter Visit Diagnoses Diagnosis Mild intermittent asthma with acute exacerbation documented in this encounter Additional Health Concerns Assessment Noted Time PHQ-9 Depression Total Score: 0 03/14/20 23 1:40 PM EDT documented as of this encounter Care Teams Top Screw Relationship Specialty Start Date End Date Vivien Ohara MD [address] [place] [phone] PCP - General Family Medicine 08/19/23 documented as of this encounter
--- OUTSIDE RECORDS SUMMARY | 2024-11-27 13:31 | XMS_ITS | Encounter Summary ---
Author Organization [employer] Address [address] [facility] [address] [place] [address] Care Team Providers Care Ball Points Inspector Name Role Phone Vivien Ohara MD Primary Care Provider [phone] Encounter Details Date Type Department Care Team ([facility] Contact Info) Description 10/27/2024 Orders Only [facility] [address] [place], [place] [phone] Vivien Ohara MD [address] [place] [address] Social History Tobacco Use Types Packs/Day Years [...] 02/01/2025 3:00 PM EDT Office Visit [facility] [address] [place] [address] Vivien Ohara MD [address] [place] [address] documented as of this encounter Visit Diagnoses Not on filedocumented in this encounter Additional Health Concerns Assessment Noted Time PHQ-9 Depression Total Score: 13 025 12:01 PM EDT documented as of this encounter Care Teams Ball Points Inspector Relationship Specialty Start Date End Date Vivien Ohara MD [address] [place] [address] PCP - General Family Medicine 08/19/23 documented as of this encounter
--- OUTSIDE RECORDS SUMMARY | 2024-11-27 13:31 | XMS_ITS | Encounter Summary ---
Author Organization [employer] Address 75 [facility] 7t [place] [address] Care Team Providers Care Process Lead Name Role Phone Vivien Ohara MD Primary Care Provider [phone] Reason for Visit * Reason Comments Med Refill Encounter Details Date Type Department Care Team ([facility] Contact Info) Description 05/04/2024 Refill [facility] [address] [place], [place] [phone] Vivien Ohara MD [address] [place], [place] [phone] Social History Tobacco Use Types Packs/Day Years [...] Description 02/01/2025 3:00 PM EDT Office Visit [facility] [address] [place] [address] Vivien Ohara MD [address] [place] [address] documented as of this encounter Visit Diagnoses Not on filedocumented in this encounter Additional Health Concerns Assessment Noted Time PHQ-9 Depression Total Score: 0 03/14/20 23 1:40 PM EDT documented as of this encounter Care Teams Process Lead Relationship Specialty Start Date End Date Vivien Ohara MD [address] [place] [address] PCP - General Family Medicine 08/19/23 documented as of this encounter
--- OUTSIDE RECORDS SUMMARY | 2024-11-27 13:31 | XMS_ITS | Clinical Summary ---
Author Organization [employer] Address [address] [facility] [address] [place] [address] Care Team Providers Care Urgent Care Technician Name Role Phone Vivien Ohara MD Primary Care Provider [phone] Allergies Active Allergy Reactions Criticality Noted Date [...] 023 Active Blood Glucose Monitoring Suppl (FreeStyle [place] Lite) w/Device kit TEST BLOOD SUGAR THREE [...] DAILY IN THE MORNING 90 tablet 1 Active TRUEplus Lancets 33G miscIndications: Type 2 diabetes mellitus without complication, without long-term current use of insulin ([facility]) TEST BLOOD SUGAR THREE TIMES DAILY DIRECTED [...] complication, without long-term current use of insulin ([facility]) INJECT 0.25 MG SUBCUTANEOUSLY EVERY 7 DAYS [...] by mouth Once per day. 90 tablet 025 2025 Active cholecalciferol (Vitamin D-3) 25 [...] IN EACH NOSTRIL ONCE DAILY 48 g 025 Active fluticasone (Flonase) 50 MCG/ACT nasal sprayIndications :Seasonal allergic rhinitis, unspecified trigger INSTILL 1-2 SPRAYS IN EACH NOSTRIL ONCE DAILY NEEDED 48 g 024 2024 Discontinued Active Problems Problem Noted [...] 8:44 AM EDT): - previously seen by [facility] Urologist -was recommended bladder suspension surgery -pt has both stress and urge incontinence -will refer back to Urologist -discussed about possible side effects including urinary problem with new medication for type 2 diabetes and pt verbalize understanding Assessment & Plan (05/13/2024 1:54 PM EDT): - previously seen by [facility] Urologist -was recommended bladder suspension surgery -pt has both stress and urge incontinence -will refer back to Urologist -discussed about possible side effects including urinary problem with new medication for type 2 diabetes and pt verbalize understanding Assessment & Plan (01/16/2024 11:23 AM EDT): - previously seen by [facility] Urologist -was recommended bladder suspension surgery -pt [...] TDap/Td: 03/02/2011, states she had repeat in [place]. No records. Will task MA to try and locate [place] records Foot exam/peripheral pulses: WNL 05/07 on [...] - foot exam: 10/26/24 - eye exam: [facility] eye care Apr 2024, no diabetic [...] visit - eye exam: referred again to [facility] eye care - microalbumin: Apr 2022, [...] numbness - eye exam: referred again to [facility] eye care - microalbumin: Apr 2022, [...] numbness - eye exam: referred again to [facility] eye care - microalbumin: Apr 2022, [...] check RAST or referral to allergy / animal care specialist Assessment & Plan (10/06/2023 5:02 PM EDT): - continue cetirizine, montelukast, and Fluticasone nasal (Flonase) - check RAST or referral to allergy / animal care specialist Dyslipidemia 10/31/2012 Assessment & Plan (10/26/2024 [...] (10/29/2024 10:08 AM EDT): - followed by [employer], Dr. 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, and re-ordered sleep study / CPAP Assessment & Plan (05/13/2024 1:54 PM EDT): - sleep study at [facility] on 03/06/23, ordered by previous PCP - report recommends in-lab for titration study or auto-PAP 6-20 cm H2O - script for AutoPAP was written in September 2023, will check up on that Assessment & Plan (01/16/2024 11:20 AM EDT): - sleep study at [facility] on 03/06/23, ordered by previous PCP - report recommends in-lab for titration study or auto-PAP 6-20 cm H2O - script for AutoPAP was written in September 2023, will check up on that Assessment & Plan (10/06/2023 4:49 PM EDT): - sleep study at [facility] on 03/06/23, ordered by previous PCP - [...] Encounters Date Type Department Care Team Description 11/23/2024 Orders Only GENERIC EXTERNAL DATA DEPARTMENT Provider, Generic External Data 11/09/2024 3:00 PM EDT Clinical Support [address] [address] Mendy Treadwell RN Hypertension, unspecified type 11/09/2024 Travel 11/09/2024 Refill [facility] [address] [place], [place] [phone] Vivien Ohara MD Seasonal allergic rhinitis, unspecified trigger 10/29/2024 Telephone [facility] MEDICINE [address] [place] [phone] Vivien Ohara MD 10/27/2024 Orders Only [facility] MEDICINE [address] [place] [phone] Vivien Ohara MD 10/26/2024 11:30 AM EDT Office Visit [address] [address] Vivien Ohara MD Obstructive sleep apnea syndrome (Primary Dx); Mild intermittent asthma without complication; Hypertension, unspecified type; Gastroesophageal reflux disease, unspecified whether esophagitis present; Mixed stress and urge urinary incontinence; Type 2 diabetes mellitus without complication, without long-term current use of insulin ([facility]); Hypothyroidism, unspecified type; Dyslipidemia; Sensorineural hearing loss (SNHL) of both ears; Seasonal allergic rhinitis, unspecified trigger; Malodorous urine; Dietary counseling; Exercise counseling; Class 3 severe obesity with serious comorbidity and body mass index (BMI) of 40.0 to 44.9 in adult, unspecified obesity type ([facility]); Multilevel degenerative disc disease; Fibromyalgia 10/26/2024 Orders Only [facility] MEDICINE [address] [place] [phone] Vivien Ohara MD 10/26/2024 Travel 10/26/2024 Refill [facility] MEDICINE [address] [place] [phone] Vivien Ohara MD Type 2 diabetes mellitus without complication, without long-term current use of insulin ([facility]) 10/21/2024 Telephone [facility] MEDICINE [address] [place] [phone] Vivien Ohara MD chart prep 10/21/2024 Refill [facility] WALK[facility]IN CENTER [address] [place] [phone] Vivien Ohara MD Type 2 diabetes mellitus without complication, without long-term current use of insulin ([facility]); Fibromyalgia 10/18/2024 Orders Only GENERIC EXTERNAL DATA DEPARTMENT Provider, Generic External Data 10/17/2024 Refill [facility] WALK[facility]IN C[facility] [address] [place] [phone] Vivien Ohara MD Type 2 diabetes mellitus without complication, without long-term current use of insulin ([facility]) 09/22/2024 1:20 PM EST Office Visit [facility] [address] [place] [phone] Oksana Ernst ANP Dysuria (Primary Dx); Gastroesophageal reflux disease, unspecified whether esophagitis present; Vaginal itching; Type 2 diabetes mellitus with hyperlipidemia (CMS/HCC) ([facility]) 09/09/2024 Refill [facility] [address] [place] [address] Oksana Ernst ANP Primary hypertension 09/09/2024 Refill [facility] [address] [place] [address] Vivien Ohara MD Seasonal allergic rhinitis, unspecified trigger; Multinodular goiter; Primary hypertension 09/03/2024 Telephone [facility] [address] [place] [phone] Yuval Henry MD 09/01/2024 6:00 PM EST Office Visit [facility] [address] [place], [place] [phone] Yuval Henry MD Subacute cough from Last [...] Description 02/01/2025 3:00 PM EDT Office Visit [facility] MEDICINE [address] [place] [address] Vivien Ohara MD [address] [place], [place] [phone] Health Maintenance Due Date Last Done Comments [...] Protein Screening 05/01/2023 05/01/2022 COVID-19 Vaccine ( - season) 2024 Influenza [...] Procedure Name Priority Date/Time Associated Diagnosis Comments CYTOPATH-CELL ENHANCED Routine 11/23/2024 5:14 PM EDT CULTURE, URINE, ROUTINE Routine 11/23/2024 2:00 PM EDT POCT INFLUENZA B (ID NOW RAPID MOLECULAR) [...] 2 diabetes mellitus with hyperlipidemia (CMS/HCC) (CMS/HCC) URINALYSIS, COMPLETE Routine 09/22/2024 1:52 PM EST [...] complication, without long-term current use of insulin ([facility]) Hypertension, unspecified type BI MAMMOGRAM SCREENING TOMOSYNTHESIS BILATERAL Routine 01/07/2024 12:55 PM EDT ALBUMIN, RANDOM URINE W/CREATININE Routine 05/01/2022 4:14 PM EDT from Last 3 Months or Most Recently Relevant to Health Maintenance Results * Cytopath-cell enhanced (11/23/2024 5:14 PM EDT) 11/23/2024 5:14 PM EDT 11/24/2024 9:42 AM EDT [facility] - 11/24/2024 11:36 AM EDT ----- ------- Name: Lia Deleon ?Age/Sex: 64/F ? : 1960 Unit#: [id number] ?? Attend Dr: Nikunj Simon MD ?Re11/23/24 ?Status: DEP REF ? Location: .LAB ?Disch: ? ----- ------- SPEC : [id number] ? RECD: 11/24/24 ? STATUS: ??SOUT ? REQ NUM: [id number] ? LORNA: 11/23/24 ? SUBM DR: Nikunj Simon MD ? ENTERED: ??11/24/24 ?SP TYPE: Cytology ? OTHR DR: Vivien Ohara MD ? ORDERED: ??Cyto-enhanced ? Diagnosis ?? Urine: ??Negative for high-grade urothelial carcinoma. ??See comment. ? COMMENT: Cellular specimen consisting of single urothelial cells, squamous cells, red ?? blood cells and acute inflammatory cells. ?Clinical History Hematuria, unspecified ? Material Received ?? Urine ? Gross Description Received is 30 cc of cloudy yellow fluid from which a ThinPrep slide is prepared. Copies To: ?? Nikunj Simon MD ?? [facility] Urology Services ?? [address] [place] [address] [address] ?? [place] [address] ?? [phone] ? Vivien Ohara MD ?? [facility] ?? [address] [facility] ?? [place] [address] ?? [phone] ----- ------- Signed (signature on file) John Soto MD 11/24/24 1136 ? ----- ------- ? END OF REPORT ? us Generic External Data Provider LAB CYTOLOGY CHEYANNE DORADO Final Result [facility] [address] [place] [address] [phone] * Culture, Urine, Routine (11/23/2024 2:00 PM EDT) Only the most recent of3 resultswithin the time period is included. Urine Urine specimen obtained by clean catch procedure / Unknown 11/23/2024 2:00 PM EDT 11/23/2024 5:14 PM EDT Comment:[facility] Narrative [facility] - 11/25/2024 10:52 AM EDT Urine Culture Report Result Urine Culture 10,000 to 50,000 cfu/ml Urine Culture Mixed bacterial brigitte characteristic of Urine Culture urogenital contamination. Specimen Source: Urine clean catch us Generic External Data Provider LAB MICROBIOLOGY - GENERAL ORDERABLES Final Result Performing Organization Address [facility] Co de Phone Number [facility] [address] [place] [phone] * POCT Rapid Influenza B CHAPA ID NOW (10/26/2024 1:07 PM EDT) Only the most recent of2 resultswithin the time period is included. Influenza B Negative Negative, Indeterminate [facility] QC Media Lot # [id number] [facility] Lot# Expiration Date [facility] Swab 10/26/2024 1:07 PM EDT Vivien Ohara MD POINT OF CARE TEST ENTER/EDIT OR DERABLES Final Result Performing Organization Address [facility] Co de Phone Number [facility] [address] [place] [phone] * POCT Rapid Influenza A CHAPA ID NOW (10/26/2024 1:07 PM EDT) Only the most recent of2 resultswithin the time period is included. Influenza A Negative Negative, Indeterminate [facility] QC Media Lot # [id number] [facility] Lot# Expiration Date [facility] Swab 10/26/2024 1:07 PM EDT us Vivien Ohara MD POINT OF CARE TEST ENTER/EDIT OR DERABLES Final Result Performing Organization Address City/[facility] Co de Phone Number [facility] [address] [place] [address] [phone] * POCT Rapid Strep A CHAPA ID NOW (10/26/2024 12:28 PM EDT) [facility] Rapid Strep A Screen Negative Negative, None Detected QC Media Lot # [id number] Lot# Expiration Date [id number] Swab 10/26/2024 12:2 8 PM EDT us Vivien Ohara MD POINT OF CARE TEST ENTER/EDIT OR DERABLES Final Result * POCT Rapid Covid-19 BinaxNOW (10/26/2024 12:28 PM EDT) Only the most recent of2 resultswithin the time period is included. Rapid COVID Ag Negative QC Media Lot # [id number] Lot# Expiration Date ,026 Swab 10/26/2024 12:2 8 PM EDT Vivien Ohara MD POINT OF CARE TEST ENTER/EDIT OR DERABLES Final Result * (ABNORMAL) Urinalysis, Complete, with Reflex to Culture (10/26/2024 12:00 AM EDT) Pathologist [facility] Color Urine Yellow [facility] Appearance Urine Clear [facility] PH 6.0 5.0 - 9.0 [facility] Glucose Urine UA 100(A) Negative mg/dL [facility] Urine Blood Small (1+)(A) Negative [facility] Specific [place] - Urine 1.010 1.005 - 1.025 [facility] Urine Protein Negative Neg-Trace mg/dL [facility] Urine Ketones Negative Negative mg/dL [facility] Nitrite Urine Negative Negative [facility] Leukocyte Esterase Urine Large (3+)(A) Negative [facility] RBC Urine 0-2 0 - 2 /HPF [facility] Urine WBC 0-5 0 - 5 /HPF [facility] Urine Squamous Epithelial Cell 6-10 0 - 2 /HPF [facility] Urine Bacteria 1+ None Seen [facility] Hyaline Casts, Urine 0-2 0 - 2 /LPF [facility] Urine 10/26/2024 10/26/2024 Narrative [facility] - 10/26/2024 4:50 PM EDT Urine, Clean Catch us Vivien Ohara MD LAB URINE ORDERABLES Final Resul t Performing Organization Address [facility] de Phone Number [facility] [address] [place] [phone] * High Sensitivity Troponin I (10/18/2024 4:10 PM EDT) Only the most recent of2 resultswithin the time period is included. [facility] TROPONIN I HIGH SENSITIVITY <2.7 <3.5 - 17.0 ng/L [facility] Comment:The Chapa high sens itivity Troponin-I results should beused in conjunction with other diagnostic information suchas ECG, clinical observations and information, and patientsymptoms to aid in the diagnosis of CT. 10/18/2024 4:10 PM EDT 10/18/2024 4:13 PM EDT us Generic External Data Provider LAB BLOOD ORDERAB LES Final Result Performing Organization Address [facility] de Phone Number [facility] [address] [place] [phone] * TSH with Reflex to Free T4 (10/18/2024 2:03 PM EDT) [facility] TSH reflex Free T4 2.92 0.32 - 4.0 uIU/mL [facility] 10/18/2024 2:03 PM EDT 10/18/2024 2:08 PM EDT us Generic External Data Provider LAB BLOOD ORDERAB LES Final Result Performing Organization Address [facility] Co de Phone Number [facility] [address] [place] [phone] * (ABNORMAL) CBC auto differential (10/18/2024 2:03 PM EDT) [facility] White Blood Count 10.4 4.8 - 10.8 X10*3/uL [facility] Red Blood Count 4.55 4.20 - 5.50 X10*6/uL [facility] Hemoglobin 13.2 12.0 - 16.0 g/dl [facility] Hematocrit 38.1 37.0 - 47.0 % [facility] Mean Corpuscular Volume 83.7 80.0 - 98.0 fL [facility] Mean Corpuscular Hemoglobin 29.0 27.0 - 33.0 pg [facility] Mean Corpuscular HGB Conc 34.6 31.0 - 35.0 g/dl [facility] Red Cell Distribution Width 13.7 11.0 - 16.0 % [facility] Platelet Count 234 160 - 400 X10*3/uL [facility] Mean Platelet Volume 9.7 9.4 - 12.3 fL [facility] Neutrophils Percent Auto 61.7 45 - 73 % [facility] Imm Gran Pct Auto 0.5(H) 0.0 - 0.4 % [facility] Lymphocytes Percent Auto 27.0 20 - 40 % [facility] Monocytes Percent Auto 7.6 2 - 11 % [facility] Eosinophils Percent Auto 2.9 0 - 4 % [facility] Basophils Percent Auto 0.3 0 - 2 % [facility] NRBC Pct Auto 0.0 0.0 - 0.2 /100WBC [facility] Neutrophils Absolute Auto 6.4 2.0 - 8.3 x10*3/uL [facility] Imm Gran Abs Auto 0.05(H) 0.00 - 0.03 X10*3/uL [facility] Lymphocytes Absolute Auto 2.8 1.2 - 4.9 X10*3/uL [facility] Monocytes Absolute Auto 0.8 0.1 - 1.2 X10*3/uL [facility] Eosinophils Absolute Auto 0.3 0.0 - 0.4 X10*3/uL [facility] Basophils Absolute Auto 0.0 0.0 - 0.2 X10*3/uL [facility] NRBC Abs Auto 0.000 0.0 - 0.012 X10*3/uL [facility] 10/18/2024 2:03 PM EDT 10/18/2024 2:08 PM EDT Generic External Data Provider LAB BLOOD ORDERAB LES Final Result Performing Organization Address [facility]/ZIP Co de Phone Number [facility] [address] [place] [phone] * Magnesium (10/18/2024 2:03 PM EDT) Pathologist [facility] Magnesium 1.7 1.6 - 2.6 mg/dL [facility] 10/18/2024 2:03 PM EDT 10/18/2024 2:08 PM EDT Generic External Data Provider LAB BLOOD ORDERAB LES Final Result Performing Organization Address [facility]/ZIP Co de Phone Number [facility] [address] [place] [phone] * Lipase (10/18/2024 2:03 PM EDT) Pathologist [facility] Lipase 23 8 - 78 U/L [facility] 10/18/2024 2:03 PM EDT 10/18/2024 2:08 PM EDT Generic External Data Provider LAB BLOOD ORDERAB LES Final Result Performing Organization Address [facility] Co de Phone Number [facility] [address] [place] [phone] * (ABNORMAL) Comprehensive Metabolic Panel (10/18/2024 2:03 PM EDT) Pathologist [facility] Sodium 140 135 - 145 mmol/L [facility] Potassium 3.9 3.3 - 5.1 mmol/L [facility] Chloride 109(H) 96 - 108 mmol/L [facility] Carbon Dioxide 25 22 - 29 mmol/L [facility] Anion Gap 10(L) 12 - 20 [facility] Urea Nitrogen (BUN) 13 9 - 16 mg/dL [facility] Creatinine, Serum 0.74 0.5 - 1.4 mg/dL [facility] Creatinine Clr Calc Pharmacy 70.6 [facility] Comment:Provided height and weight: 147.32 cm,86.2 kg.eGFR (calculated from the MDRD study equation) and eCrCl(calculated from the Cockcroft-Gault equation) are based ondifferent parameters and may not yield comparable results.If eCrCl result is absurd, please check patient'sheight/weight. Estimated Glomerular Filt Rate >60 [facility] Comment:Chronic Kidney Disea se: Estimated GFR < 60 mL/min/1.18a1Woxxpi Kidney Disease: Estimated GFR < 15 mL/min/1.73m2 Glucose 151(H) 60 - 115 mg/dL [facility] Calcium 9.0 8.4 - 10.2 mg/dL [facility] Bilirubin, Total 0.3 0.0 - 1.0 mg/dL [facility] Aspartate Amino Transferase 20 5 - 31 U/L [facility] Alanine Aminotransferase 16 0 - 31 U/L [facility] Total Protein 7.8 6.5 - 8.0 g/dL [facility] Albumin Level 3.7 3.5 - 5.0 g/dL [facility] Alkaline Phosphatase 89 39 - 117 U/L [facility] 10/18/2024 2:03 PM EDT 10/18/2024 2:08 PM EDT us Generic External Data Provider LAB BLOOD ORDERAB LES Final Result [facility] [address] [place] [address] [phone] * XR Chest 2 Views (10/18/2024 1:55 PM EDT) Only the most recent of2 resultswithin the time period is included. Anatomical Region Laterality Modality Chest Radiographic Diana ging 10/18/2024 1:5 5 PM EDT Narrative 10/18/2024 1:56 PM EDT ? [facility] ?[address] ?[place] [address] ?XRay Report ? Signed ? Patient: Deleon,Lia ?MR#: [id number] ?? 910 ? : 1960 ?Acct:[id number] ? Age/Sex: 64 / F ?ADM Date: 10/18/24 ? Loc: HO.ED ? Attending Dr: ? Ordering Physician: Ligia Dale ?? Date of Service: 10/18/24 ?? Procedure(s): XR chest 2V ?? Accession Number(s): [id number] ? cc: Ligia Dale; Vivien Ohara MD [...] DD/ 1355 ? TD/TT: 10/18/24 1355 ? Creative Services Coordinator: ? Procedure Note Donruchiter, Image - 10/18/2024 [place] [address] XRay Report Signed Patient: Lia DeleonMR#: [id number] : 9Acct:[id number] Age/Sex: 64 / FADM Date: 10/18/24 Loc: HO.ED Attending Dr: Ordering Physician: Ligia Dale Date of Service: 10/18/24 Procedure(s): XR chest 2V Accession Number(s): [id number] cc: Ligia Dale; Vivien Ohara MD CLINICAL [...] Adams MD in OV> 10/18/24 1355 DD/ 1355 TD/TT: 10/18/241354 Creative Services Coordinator: [facility] External Provider IMG XR PROCEDURES Edited Result - Final * SARS-CoV-2 RNA, Influenza A/B, and RSV RNA, Ql NAAT (10/18/2024 12:50 PM EDT) Influenza A PCR NEGATIVE Negative [facility] Influenza B PCR NEGATIVE Negative [facility] Resp Syncy Virus RNA Qual PCR NEGATIVE Negative [facility] SARS COV2 PCR NEGATIVE Negative [facility] Comment:All test results mus t be [...] use by authorized laboratories.Testing performed on the [employer] GeneXpert utilizingreal-time RT-PCR.All SARS CoV2 and positive influenza A/B results arereported to [facility]. 10/18/2024 12:5 0 PM EDT 10/18/2024 12:53 PM EDT Generic External Data Provider LAB MICROBIOLOGY - GENERAL ORDERABLES Final Result [facility] [address] [place] [phone] * (ABNORMAL) POCT HGB A1C (09/22/2024 3:10 PM EST) Hemoglobin A1C 6.8(A) 4.0 - 6.0 % Blood 09/22/2024 3:10 PM EST Oksana Ernst ANP POINT OF CARE TEST ENTER/EDIT OR DERABLES Final Result * POCT Glucose (09/22/2024 3:10 PM EST) Pathologist [facility] Glucose Blood, POC 128 60 - 200 mg/dL Blood Capillary blood specimen / Unknown 09/22/2024 3:10 PM EST Oksana Ernst ANP POINT OF CARE TEST ENTER/EDIT OR DERABLES Final Result * Bacterial Vaginosis Panel (09/22/2024 1:52 PM EST) Pathologist [facility] TRICHOMONAS VAGINALIS DETECTION BY PCR NOT DETECTED Not Detect [facility] BACTERIAL VAGINOSIS DETECTION BY PCR NEGATIVE Negative [facility] Comment:The BV organism targ ets [...] DETECTION BY PCR NOT DETECTED Not Detect [facility] Delaney glab krusei PCR NOT DETECTED Not Detect [facility] Swab Vaginal structure / Unknown 09/22/2024 1:52 PM EST 09/22/2024 4:10 PM EST Oksana Ernst [facility] MICROBIOLOGY - GENERAL ORDER HALINA Final Result [facility] [address] [place] [phone] * (ABNORMAL) Urinalysis Complete (09/22/2024 1:52 PM EST) Color Urine Yellow [facility] Appearance Urine Clear [facility] PH 6.5 5.0 - 9.0 [facility] Glucose Urine UA Negative Negative mg/dL [facility] Urine Blood Small (1+)(A) Negative [facility] Specific [place] - Urine 1.010 1.005 - 1.025 [facility] Urine Protein Negative Neg-Trace mg/dL [facility] Urine Ketones Negative Negative mg/dL [facility] Nitrite Urine Negative Negative [facility] Leukocyte Esterase Urine Large (3+)(A) Negative [facility] RBC Urine 3-5(A) 0 - 2 /HPF [facility] Urine WBC >50(A) 0 - 5 /HPF [facility] Urine Squamous Epithelial Cell 11-20 0 - 2 /HPF [facility] Urine Bacteria 1+ None Seen [facility] Hyaline Casts, Urine 0-2 0 - 2 /LPF [facility] Urine (Urine, Random) 09/22/2024 1:52 PM EST 09/22/2024 4:10 PM EST [facility] URINE ORDERABLES Final Resul t [facility] [address] [place] [phone] * (ABNORMAL) Respiratory Viral Panel PCR (09/01/2024 12:00 AM EST) Adenovirus PCR Not Detected Not Detect. [facility] Bordetella pertussis PCR Not Detected Not Detect. [facility] Comment:Interpret results wi th caution. If B. pertussis isspecifically suspected, additional testing using analternate method is recommended. Bordetella parapertussis PCR Not Detected Not Detect. [facility] Chlamydia pneumoniae PCR Not Detected Not Detect. [facility] Coronavirus 229E PCR Not Detected Not Detect. [facility] Coronavirus HKU1 PCR Not Detected Not Detect. [facility] Coronavirus NL63 PCR Not Detected Not Detect. [facility] Coronavirus OC43 PCR Not Detected Not Detect. [facility] SARS-CoV-2 PCR Not Detected Not Detect. [facility] Comment:SARS-CoV-2 not detec bridger by real-time RT-PCR.Note: If clinical suspicion for Sars-CoV-2 is high, continueto maintain precautions and consider repeat testing.Test results should be interpreted in the context ofclinical findings and other laboratory data.Rare polymorphisms exist that could lead to false-negativeor false-positive results. If results do not match theclinical findings, additional testing should be considered.Results reported to ALAN WOODRUFF.This test has been authorized by the FDA under the EmergencyUse Authorization (EUA) for use by authorized laboratories. Influenza A PCR Detected(A) Not Detect. [facility] Influenza B PCR Not Detected Not Detect. [facility] Human metapneumovirus PCR Not Detected Not Detect. [facility] Rhino/Enterovirus PCR Not Detected Not Detect. [facility] Mycoplasma pneumoniae PCR Not Detected Not Detect. [facility] Parainfluenza 1 PCR Not Detected Not Detect. [facility] Parainfluenza 2 PCR Not Detected Not Detect. [facility] Parainfluenza 3 PCR Not Detected Not Detect. [facility] Parainfluenza 4 PCR Not Detected Not Detect. [facility] RSV PCR Not Detected Not Detect. [facility] Resp Panel NA Note See Note H [facility] Comment:All results must be [...] assay is performed by Multiplexed PCR, utilizing the[employer] Film Array. 09/01/2024 09/01/2024 Yuval Henry MD LAB BLOOD ORDERABLES Final Resul t Performing Organization Address [facility] de Phone Number [facility] [address] [place] [phone] * (ABNORMAL) Lipid Panel with Reflex to Direct LDL (05/13/2024 11:00 AM EDT) Triglycerides 200(H) <150 mg/dL [facility] Comment:Desirable Triglyceri de: less than 150 [...] 190 mg/dL HDL Cholesterol 45 >40 mg/dL [facility] Comment:Desirable HDL: great er than 40 mg/dL Note: This HDL assay may give artificially low results in patients with liver disease. Blood 05/13/2024 11:0 0 AM EDT 05/13/2024 11:37 AM EDT Vivien Ohara MD LAB BLOOD ORDERABLES Final Resul t Performing Organization Address [facility] Co de Phone Number [facility] [address] [place] [phone] * BI Mammogram Screening Tomosynthesis Bilateral (01/07/2024 12:55 PM EDT) Anatomical Region Laterality Modality Breast Bilateral Mammography 01/07/2024 12:5 5 PM EDT Narrative 02/06/2024 9:41 AM EDT ? [facility] ? [address] ?[place] [address] ? Mammography Report ? Signed ? Patient: Deleon,Lia ?MR#: [id number] ?? [id number] ? : 1960 ?Acct:[id number] ? Age/Sex: 63 / F ?ADM Date: 01/07/24 ? Loc: HO.MAMMO ? Attending Dr: Vivien Ohara MD ? Ordering Physician: Vivien Ohara MD ?Results: 1Negative ? Date of Service: 01/07/24 ?Follow Up: 1 Year From Orig ?? inal Mammogram ? Procedure(s): MM tomosynthesis screening BI ?? Accession Number(s): [id number] ? cc: Vivien Ohara MD ? EXAMINATION: [...] 0937 ? DD/ 1255 ? TD/TT: ? Creative Services Coordinator: ? Procedure Note Dariusz, Image - 02/06/2024 [place] [facility] [address] [place] [address] Mammography Report Signed Patient: Nathanael Deleon#: [id number] : 9Acct:[id number] Age/Sex: 63 / FADM Date: 01/07/24 Loc: BECK Attending Dr: Vivien Ohara MD Ordering Physician: Vivien Ohara MDResults: 1Negative Date of Service: 01/07/24Follow Up: 1 Year From Orig inal Mammogram Procedure(s): MM tomosynthesis screening BI Accession Number(s): [id number] cc: Vivien Ohara MD EXAMINATION: MM SCREENING [...] in OV> 02/06/24 0937 DD/ 1255 TD/TT: Creative Services Coordinator: Vivien Ohara MD IMG BI PROCEDURES Final [...] LABS 05/01/2022 4:14 PM EDT Kandi Vanessa [facility] URINE ORDERABLES Final Result [facility] from Last 3 Months or Most Recently Relevant to Health Maintenance Insurance [facility] COR[employer]CTION OPTIONS (HMO D-SNP) [place] [id number] Care Teams Urgent Care Technician Relationship Specialty Start Date End Date Vivien Ohara MD [address] [place] [address] PCP - General Family Medicine 08/19/23
--- OUTSIDE RECORDS SUMMARY | 2024-11-27 13:31 | XMS_ITS | Encounter Summary ---
Author Organization [employer] Address [address] [facility] 7t [place] [address] Care Team Providers Care Driller Operator Name Role Phone Vivien Ohara MD Primary Care Provider [phone] Encounter Details Date Type Department Care Team ([facility] Contact Info) Description 11/23/2024 Orders Only GENERIC EXTERNAL DATA DEPARTMENT Provider, Generic External Data Social History Tobacco Use Types Packs/Day Years [...] Description 02/01/2025 3:00 PM EDT Office Visit [facility] [address] [place] [address] Vivien Ohara MD [address] [place] [address] documented as of this encounter Procedures Procedure Name Priority Date/Time Associated Diagnosis Comments CYTOPATH-CELL ENHANCED Routine 11/23/2024 5:14 PM EDT CULTURE, URINE, ROUTINE Routine 11/23/2024 2:00 PM EDT documented in this encounter Results * Cytopath-cell enhanced (11/23/2024 5:14 PM EDT) 11/23/2024 5:14 PM EDT 11/24/2024 9:42 AM EDT [facility] - 11/24/2024 11:36 AM EDT ----- ------- Name: Lia Deleon ?Age/Sex: 64/F ? : 1960 Unit#: [id number] ?? Attend Dr: Nikunj Simon MD ?Re11/23/24 ?Status: DEP REF ? Location: .LAB ?Disch: ? ----- ------- SPEC : [id number] ? RECD: 11/24/24 ? STATUS: ??SOUT ? REQ NUM: [id number] ? LORNA: 11/23/24-601 ? SUBM DR: Nikunj Simon MD ? ENTERED: ??11/24/2467 ?SP TYPE: Cytology ? OTHR DR: Vivien [...] Copies To: ?? Nikunj Simon MD ?? [facility] ?? [address] [place] [address] Dr. Castellanos ?? [place] [address] ?? [phone] ?? [email or web address] ?? Vivien Ohara MD ?? [facility] ?? [address] [facility] ?? [place] [address] ?? [phone] ----- ------- Signed (signature on file) John Soto MD 11/24/246 ? ----- ------- ? END OF REPORT ? Generic External Data Provider LAB CYTOLOGY ORDE RABLES Final Result Performing Organization Address [place] [[email or web address]] de Phone Number [facility] [address] [place] [phone] * Culture, Urine, Routine (11/23/2024 2:00 PM EDT) Urine Urine specimen obtained by clean catch procedure / Unknown 11/23/2024 2:00 PM EDT 11/23/2024 5:14 PM EDT Comment:[facility] - 11/25/2024 10:52 AM EDT Urine Culture Report Result Urine Culture 10,000 to 50,000 cfu/ml Urine Culture Mixed bacterial brigitte characteristic of Urine Culture urogenital contamination. Specimen Source: Urine clean catch Generic External Data Provider LAB MICROBIOLOGY - GENERAL ORDERABLES Final Result Performing Organization Address [facility] [[email or web address]] de Phone Number [facility] [address] [place] [phone] documented in this encounter Visit Diagnoses Not on filedocumented in this encounter Additional Health Concerns Assessment Noted Time PHQ-9 Depression Total Score: 13 10/26/ 025 12:01 PM EDT documented as of this encounter Care Teams Driller Operator Relationship Specialty Start Date End Date Vivien Ohara MD [address] [place] [phone] PCP - General Family Medicine 08/19/23 documented as of this encounter
--- OUTSIDE RECORDS SUMMARY | 2024-11-27 13:31 | XMS_ITS | Encounter Summary ---
Author Organization [employer] Address [address] [facility] 7t [place] [address] Care Team Providers Care Director Of Public Safety Name Role Phone Vivien Ohara MD Primary Care Provider [phone] Reason for Visit * Reason Onset Date Comments Med Refill 03/10/2024 Encounter Details Date Type Department Care Team ([facility] Contact Info) Description 03/10/2024 Refill [facility] [address] [place], [place] [phone] Vivien Ohara MD [address] [place], [place] [phone] Primary osteoarthritis involving multiple joints Social History [...] Description 02/01/2025 3:00 PM EDT Office Visit [facility] [address] [place] [address] Vivien Ohara MD [address] [place] [address] documented as of this encounter Visit Diagnoses Diagnosis Primary osteoarthritis involving multiple joints documented in this encounter Additional Health Concerns Assessment Noted Time PHQ-9 Depression Total Score: 0 03/14/20 23 1:40 PM EDT documented as of this encounter Care Teams Director Of Public Safety Relationship Specialty Start Date End Date Vivien Ohara MD [address] [place] [address] PCP - General Family Medicine 08/19/23 documented as of this encounter
--- OUTSIDE RECORDS SUMMARY | 2024-11-27 13:31 | XMS_ITS | Encounter Summary ---
Author Organization [employer] Address [address] 7t [place] [address] Care Team Providers Care Antique Refinisher Name Role Phone Vivien Ohara MD Primary Care Provider [phone] Reason for Visit * Reason Comments Med Refill Encounter Details Date Type Department Care Team ([facility] Contact Info) Description 11/06/2023 Refill [facility] [address] [place] [address] Amanda Moreno MD [address] [place], [place] [phone] Social History Tobacco Use Types Packs/Day Years [...] 3:00 PM EDT [facility] [address] [place] [address] Vivien Ohara MD [address] [place] [address] documented as of this encounter Visit Diagnoses Not on filedocumented in this encounter Additional Health Concerns Assessment Noted Time PHQ-9 Depression Total Score: 0 03/14/20 23 1:40 PM EDT documented as of this encounter Care Teams Antique Refinisher Relationship Specialty Start Date End Date Vivien Ohara MD [address] [place] [address] PCP - General Family Medicine 08/19/23 documented as of this encounter
--- OUTSIDE RECORDS SUMMARY | 2024-11-27 13:31 | XMS_ITS | Encounter Summary ---
Author Organization [employer] Address [address] [facility] 7t [place] [address] Care Team Providers Care Director Food Safety Name Role Phone Kandi Vanessa Ciera NORTONP Primary Care Provider [phone] Lakeisha Yadav NP Primary Care Provider [phone] Vivien Ohara MD Primary Care Provider [phone] Reason for Visit * Reason Comments Med Refill Encounter Details Date Type Department Care Team ([facility] Contact Info) Description 08/14/2022 Refill [facility] [address] [place] [address] Hailey Gomez MD [address] [place] [address] Cough in adult Social History Tobacco Use [...] Upcoming Encounters Date Type Department Care Team ([facility] Contact Info) Description 02/01/2025 3:00 PM EDT Office Visit [facility] [place] [address] [place] [address] documented as of this encounter Visit Diagnoses Diagnosis Cough in adult documented in this encounter Care Teams Director Food Safety Relationship Specialty Start Date End Date Kandi Vanessa FNP PCP - General Family Medicine 03/07/22 05/02/23 [place] [address] PCP - General Family Medicine 05/03/23 08/18/23 [place] [address] PCP - General Family Medicine 08/19/23 documented as of this encounter
--- OUTSIDE RECORDS SUMMARY | 2024-11-27 13:31 | XMS_ITS | Encounter Summary ---
Author Organization [employer] Address [address] [facility] 7 [place] [address] Care Team Providers Care Technical Communicator Name Role Phone Kandi Vanessa Primary Care Provider [phone] Lakeisha Yadav NP Primary Care Provider [phone] Vivien Ohara MD Primary Care Provider [phone] Reason for Visit * Reason Onset Date Comments Results 08/03/2022 Encounter Details Date Type Department Care Team ([facility] st Contact Info) Description 08/03/2022 Telephone [facility] [address] [place] [address] Kandi Vanessa FNP [address] [place] [address] Dept [place] [address] Results Social History Tobacco Use Types Packs/Day [...] Description 02/01/2025 3:00 PM EDT Office Visit [facility] [address] [place] [address] Vivien Ohara MD [address] [place] [address] documented as of this encounter Visit Diagnoses Not on filedocumented in this encounter Care Teams Technical Communicator Relationship Specialty Start Date End Date Kandi Vanessa FNP PCP - General Family Medicine 03/07/22 05/02/23 Lakeisha Yadav NP [address] [place] [address] PCP - General Family Medicine 05/03/23 08/18/23 Vivien Ohara MD [address] [place] [address] PCP - General Family Medicine 08/19/23 documented as of this encounter
--- OUTSIDE RECORDS SUMMARY | 2024-11-27 13:31 | XMS_ITS | Encounter Summary ---
Author Organization [employer] Address [address] [facility] [address] 7t [place] [address] Care Team Providers Care Family Program Specialist Name Role Phone Lakeisha Yadav NP Primary Care Provider [phone] Vivien Ohara MD Primary Care Provider [phone] Reason for Visit * Reason Comments Med Refill Encounter Details Date Type Department Care Team ([facility] st Contact Info) Description 08/17/2023 Refill [facility] [address] [place] [address] Name, MD Dylon [address] [place] [address] Mild intermittent asthma with acute exacerbation Social [...] [facility] [address] [place] [address] Vivien Ohara MD [address] [place] [address] documented as of this encounter Visit Diagnoses Diagnosis Mild intermittent asthma with acute exacerbation documented in this encounter Additional Health Concerns Assessment Noted Time PHQ-9 Depression Total Score: 0 03/14/20 23 1:40 PM EDT documented as of this encounter Care Teams Family Program Specialist Relationship Specialty Start Date End Date Lakeisha Yadav NP [address] [place] [address] PCP - General Family Medicine 05/03/23 08/18/23 Vivien Ohara MD [address] [place] [address] PCP - General Family Medicine 08/19/23 documented as of this encounter
[2024-11-27 14:16] VITALS: BP 224/90
[2024-11-27 14:21] VITALS: BP 184/93
== END 2024-11-27 14:20 | disposition home or self-care (01) ==
LOC: HO.PMC 13:10
PROVIDERS: PCP Family Medicine; Visit Provider Registered Nurse Emergency
DX: M47.816 Spondylosis without myelopathy or radiculopathy, lumbar region (principal); M47.812 Spondylosis without myelopathy or radiculopathy, cervical region; M79.18 Myalgia, other site
CPT/HCPCS: 99204; G2211

== ENCOUNTER 2024-12-03 08:54 | Outpatient (REF) | payer OTHER, SELFPAY ==
--- NOTE | 2024-12-03 09:00 | PFT_ITS ---
Indication: Asthma Spirometry [FEV1 to FVC 81%; FEV1 1.65 L; FVC 2.04 L. No significant response to bronchodilators noted.] Lung Volumes [Total lung capacity 81% predicted; expiratory reserve volume 26% predicted] Diffusion Capacity [DLCO 102% predicted] Comparisons [none] Interpretation [No obstructive nor restrictive ventilatory defects identified. No significant response to bronchodilators noted. Lung volumes are low normal the patient does have a decrease in the expiratory reserve volume secondary to likely an elevated BMI. Diffusing capacity is within normal limit. Clinical correlation warranted.] MTDD
--- OUTSIDE RECORDS SUMMARY | 2024-12-03 09:18 | XMS_ITS | Encounter Summary ---
Author Organization [employer] Address [address] [facility] [address] 7t [place] [address] Care Team Providers Care Plant Tech Name Role Phone Lakeisha Yadav NP Primary Care Provider [phone] Vivien Ohara MD Primary Care Provider [phone] Reason for Visit * Reason Comments Med Refill Encounter Details Date Type Department Care Team ([facility] st Contact Info) Description 08/17/2023 Refill [facility] [address] [place] [address] Name, MD Dylon [address] [place] [address] Mild intermittent asthma with acute exacerbation Social [...] 3:00 PM EDT Office Visit [facility] [address] [place] [address] Vivien Ohara MD [address] [place] [address] documented as of this encounter Visit Diagnoses Diagnosis Mild intermittent asthma with acute exacerbation documented in this encounter Additional Health Concerns Assessment Noted Time PHQ-9 Depression Total Score: 0 03/14/20 23 1:40 PM EDT documented as of this encounter Care Teams Plant Tech Relationship Specialty Start Date End Date Lakeisha Yadav NP [address] [place] [address] PCP - General Family Medicine 05/03/23 08/18/23 Vivien Ohara MD [address] [place] [address] PCP - General Family Medicine 08/19/23 documented as of this encounter
--- OUTSIDE RECORDS SUMMARY | 2024-12-03 09:18 | XMS_ITS | Encounter Summary ---
Author Organization [employer] Address [address] [facility] [address] 7t [place] [address] Care Team Providers Care Repairer Evaporator Name Role Phone Vivien Ohara MD Primary Care Provider [phone] Reason for Visit * Reason Comments Med Refill Encounter Details Date Type Department Care Team ([facility] st Contact Info) Description 05/04/2024 Refill [facility] [address] [place], [place] [phone] Vivien Ohara MD [address] [place], [place] [phone] Social History Tobacco Use Types Packs/Day Years [...] PM EDT Office Visit [facility] [address] [place] [address] Vivien Ohara MD [address] [place] [address] documented as of this encounter Visit Diagnoses Not on filedocumented in this encounter Additional Health Concerns Assessment Noted Time PHQ-9 Depression Total Score: 0 03/14/20 23 1:40 PM EDT documented as of this encounter Care Teams Repairer Evaporator Relationship Specialty Start Date End Date Vivien Ohara MD [address] [place] [address] PCP - General Family Medicine 08/19/23 documented as of this encounter
--- OUTSIDE RECORDS SUMMARY | 2024-12-03 09:18 | XMS_ITS | Encounter Summary ---
Author Organization [employer] Address [address] 7t [place] [address] Care Team Providers Care Plasterer Stucco Name Role Phone Vivien Ohara MD Primary Care Provider [phone] Reason for Visit * Reason Onset Date Comments Med Refill 03/10/2024 Encounter Details Date Type Department Care Team ([facility] st Contact Info) Description 03/10/2024 Refill [facility] [address] [place], [place] [phone] Vivien Ohara MD [address] [place], [place] [phone] Primary osteoarthritis involving multiple joints Social History [...] 3:00 PM EDT Office Visit [facility] [address] [place] [address] Vivien Ohara MD [address] [place] [address] documented as of this encounter Visit Diagnoses Diagnosis Primary osteoarthritis involving multiple joints documented in this encounter Additional Health Concerns Assessment Noted Time PHQ-9 Depression Total Score: 0 03/14/20 23 1:40 PM EDT documented as of this encounter Care Teams Plasterer Stucco Relationship Specialty Start Date End Date Vivien Ohara MD [address] [place] [address] PCP - General Family Medicine 08/19/23 documented as of this encounter
--- OUTSIDE RECORDS SUMMARY | 2024-12-03 09:18 | XMS_ITS | Encounter Summary ---
Author Organization [employer] Address [address] [place] [address] 7 [place] [address] Care Team Providers Care Diamond Finishing Supervisor Name Role Phone Kandi Vanessa Primary Care Provider [phone] Lakeisha Yadav NP Primary Care Provider [phone] Vivien Ohara MD Primary Care Provider [phone] Reason for Visit * Reason Onset Date Comments Results 08/03/2022 Encounter Details Date Type Department Care Team ([facility] st Contact Info) Description 08/03/2022 Telephone [facility] [address] [place] [address] Kandi Vanessa FNP [address] [place] [address] Dept [place] [address] Results Social History Tobacco Use Types Packs/Day [...] Description 02/01/2025 3:00 PM EDT Office Visit [facility] [address] [place] [address] Vivien Ohara MD [address] [place] [address] documented as of this encounter Visit Diagnoses Not on filedocumented in this encounter Care Teams Diamond Finishing Supervisor Relationship Specialty Start Date End Date Kandi Vanessa FNP PCP - General Family Medicine 03/07/22 05/02/23 Lakeisha Yadav NP [address] [place] [address] PCP - General Family Medicine 05/03/23 08/18/23 Vivien Ohara MD [address] [place] [address] PCP - General Family Medicine 08/19/23 documented as of this encounter
--- OUTSIDE RECORDS SUMMARY | 2024-12-03 09:18 | XMS_ITS | Encounter Summary ---
Author Organization [employer] Address [address] [place] [address] Care Team Providers Care General Surgery Physician Assistant Name Role Phone Vivien Ohara MD Primary Care Provider [phone] Encounter Details Date Type Department Care Team ([facility] st Contact Info) Description 10/27/2024 Orders Only [facility] [address] [place], [place] [phone] Vivien Ohara MD [address] [place], [place] [phone] Social History Tobacco Use Types Packs/Day Years [...] Description 02/01/2025 3:00 PM EDT Office Visit [facility] [address] [place] [phone] Vivien Ohara MD [address] [place] [phone] documented as of this encounter Visit Diagnoses Not on filedocumented in this encounter Additional Health Concerns Assessment Noted Time PHQ-9 Depression Total Score: 13 025 12:01 PM EDT documented as of this encounter Care Teams General Surgery Physician Assistant Relationship Specialty Start Date End Date Vivien Ohara MD [address] [place] [id number] PCP - General Family Medicine 08/19/23 documented as of this encounter
--- OUTSIDE RECORDS SUMMARY | 2024-12-03 09:18 | XMS_ITS | Encounter Summary ---
Author Organization [employer] Address [address] [place] [address] Care Team Providers Care Poultry Helper Name Role Phone Vivien Ohara MD Primary Care Provider [phone] Reason for Visit * Reason Comments Med Refill Encounter Details Date Type Department Care Team ([facility] st Contact Info) Description 11/06/2023 Refill [facility] [address] [place] [address] Amanda Moreno MD [address] [place] [address] Social History Tobacco Use Types Packs/Day Years [...] Description 02/01/2025 3:00 PM EDT Office Visit [facility] [address] [place] [phone] Vivien Ohara MD [address] [place] [phone] documented as of this encounter Visit Diagnoses Not on filedocumented in this encounter Additional Health Concerns Assessment Noted Time PHQ-9 Depression Total Score: 0 03/14/20 23 1:40 PM EDT documented as of this encounter Care Teams Poultry Helper Relationship Specialty Start Date End Date Vivien Ohara MD [address] [place] [id number] PCP - General Family Medicine 08/19/23 documented as of this encounter
--- OUTSIDE RECORDS SUMMARY | 2024-12-03 09:18 | XMS_ITS | Encounter Summary ---
Author Organization [employer] Address [address] [facility] [address] [place] [address] Care Team Providers Care Press Department Manager Name Role Phone Kandi Vanessa BIOLOGICAL LAB TECHNICIAN Primary Care Provider [phone] Lakeisha Yadav NP Primary Care Provider [phone] Vivien Ohara MD Primary Care Provider [phone] Reason for Visit * Reason Comments Med Refill Encounter Details Date Type Department Care Team ([facility] Contact Info) Description 08/14/2022 Refill [facility] [address] [place] [address] Hailey Gomez MD [address] [place] [address] Cough in adult Social History Tobacco Use [...] Upcoming Encounters Date Type Department Care Team ([facility] Contact Info) Description 02/01/2025 3:00 PM EDT Office Visit [facility] [address] [facility] [place] [address] Vivien Ohara MD [facility] [place] [address] documented as of this encounter Visit Diagnoses Diagnosis Cough in adult documented in this encounter Care Teams Press Department Manager Relationship Specialty Start Date End Date Kandi Vanessa FNP PCP - General Family Medicine 03/07/22 05/02/23 Lakeisha Yadav NP [facility] [place] [address] PCP - General Family Medicine 05/03/23 08/18/23 [place] [address] PCP - General Family Medicine 08/19/23 documented as of this encounter
--- OUTSIDE RECORDS SUMMARY | 2024-12-03 09:18 | XMS_ITS | Clinical Summary ---
Author Organization [employer] Address [address] [facility] 7[address] [place] [address] Care Team Providers Care Vessel Operator Name Role Phone Vivien Ohara MD Primary Care Provider [phone] Allergies Active Allergy Reactions Criticality Noted Date [...] OUNCES OF WATER AND DRINK ONCE DAILY Active Stool Softener/Laxativ e 50-8.6 MG tablet Take 1 tablet by mouth in the morning. 022 Active Blood Glucose Monitoring Suppl (ONE TOUCH ULTRA 2) w/Device kit 1 each 3 times daily. 1 kit 023 Active FreeStyle lancets 1 each by Other route 3 times daily. TEST BLOOD SUGAR THREE TIMES DAILY DIRECTED 100 each 11 023 Active Blood Glucose Monitoring Suppl (FreeStyle Simmesport Lite) w/Device kit TEST BLOOD SUGAR THREE [...] FOUR TIMES DAILY NEEDED 90 mL 3 Active valsartan (Diovan) 160 MG tabletIndication s:Hypertension, [...] RINSE MOUTH AFTER USING 30 each 3 Active omeprazole (PriLOSEC) [address] capsule TAKE 1 CAPSULE BY MOUTH EVERY DAY 90 capsule Active levothyroxine (Synthroid, Levoxyl) 50 MCG tabletIndication s:Multinodular goiter TAKE 1 TABLET BY MOUTH EVERY DAY 90 tablet 025 Active fenofibrate (Tricor) 54 MG tablet TAKE 1 TABLET BY MOUTH ONCE DAILY IN THE MORNING 90 tablet Active aspirin (Aspirin Low Dose) 81 MG EC tabletIndication s:Primary hypertension TAKE 1 TABLET BY MOUTH ONCE DAILY IN THE MORNING 90 tablet 1 Active TRUEplus Lancets 33G miscIndications: Type 2 diabetes mellitus without complication, without long-term current use of insulin (CMS/[facility]) TEST BLOOD SUGAR THREE TIMES DAILY DIRECTED [...] complication, without long-term current use of insulin (CMS/[facility]) INJECT 0.25 MG SUBCUTANEOUSLY EVERY 7 DAYS IN THE ABDOMEN, THIGHS OR UPPER ARM. ROTATE INJECTION SITES. 3 mL 1 Active Farxiga 10 MG Take 1 tablet [...] 8:44 AM EDT): - previously seen by [facility] Urologist -was recommended bladder suspension surgery -pt has both stress and urge incontinence -will refer back to Urologist -discussed about possible side effects including urinary problem with new medication for type 2 diabetes and pt verbalize understanding Assessment & Plan (05/13/2024 1:54 PM EDT): - previously seen by [facility] Urologist -was recommended bladder suspension surgery -pt has both stress and urge incontinence -will refer back to Urologist -discussed about possible side effects including urinary problem with new medication for type 2 diabetes and pt verbalize understanding Assessment & Plan (01/16/2024 11:23 AM EDT): - previously seen by [facility] Urologist -was recommended bladder suspension [...] TDap/Td: 03/02/2011, states she had repeat in [place]. No records. Will task MA to try and locate [place] records Foot exam/peripheral pulses: WNL 05/07 on [...] - foot exam: 10/26/24 - eye exam: [facility] eye care Apr 2024, no diabetic retinopathy [...] visit - eye exam: referred again to [facility] eye care - microalbumin: Apr [...] numbness - eye exam: referred again to [facility] eye care - microalbumin: Apr [...] numbness - eye exam: referred again to [facility] eye care - microalbumin: Apr 2022, mild microalbuminuria - lipid profile: Apr 2022 - follow up in 3-4 mo or sooner prn Assessment & Plan (04/25/2023 11:21 PM EDT): Refer dental [place] will contact about eye care centers that accept [facility] Increase Metformin dose Refer Nutrition d/t new [...] check RAST or referral to allergy / health care law specialist Assessment & Plan (10/06/2023 5:02 PM EDT): - continue cetirizine, montelukast, and Fluticasone nasal (Flonase) - check RAST or referral to allergy / health care law specialist Dyslipidemia 10/31/2012 Assessment & Plan (10/26/2024 [...] (10/29/2024 10:08 AM EDT): - followed by loading dock helper, Dr. Awad, [facility], last seen on 10/15/24 - continue mometasone [...] 10:07 AM EDT): - sleep study at [facility] on 03/06/23 - report recommends in-lab for titration study or auto-PAP 6-20 cm H2O - script for AutoPAP was written in September 2023, still does not have one - recently seen by loading dock helper, and re-ordered sleep study / CPAP Assessment & Plan (05/13/2024 1:54 PM EDT): - sleep study at [facility] on 03/06/23, ordered by previous PCP - report recommends in-lab for titration study or auto-PAP 6-20 cm H2O - script for AutoPAP was written in September 2023, will check up on that Assessment & Plan (01/16/2024 11:20 AM EDT): - sleep study at [facility] [place] 03/06/23, ordered by previous PCP - report recommends in-lab for titration study or auto-PAP 6-20 cm H2O - script for AutoPAP was written in September 2023, will check up on that Assessment & Plan (10/06/2023 4:49 PM EDT): - sleep study at [facility] [place] 03/06/23, ordered by previous PCP - [...] Data 11/09/2024 3:00 PM EDT Clinical Support [address] [address] Mendy Treadwell RN Hypertension, unspecified type 11/09/2024 Travel 11/09/2024 Refill [facility] [address] [place], [place] [phone] Vivien Ohara MD Seasonal allergic rhinitis, unspecified trigger 10/29/2024 Telephone [facility] MEDICINE [address] [place] [phone] Vivien Ohara MD 10/27/2024 Orders Only [facility] MED[facility] [address] [place] [phone] Vivien Ohara MD 10/26/2024 11:30 AM EDT Office Visit [address] [address] Vivien Ohara MD Obstructive sleep apnea syndrome (Primary Dx); Mild intermittent asthma without complication; Hypertension, unspecified type; Gastroesophageal reflux disease, unspecified whether esophagitis present; Mixed stress and urge urinary incontinence; Type 2 diabetes mellitus without complication, without long-term current use of insulin ([facility]); Hypothyroidism, unspecified type; Dyslipidemia; Sensorineural hearing loss (SNHL) of both ears; Seasonal allergic rhinitis, unspecified trigger; Malodorous urine; Dietary counseling; Exercise counseling; Class 3 severe obesity with serious comorbidity and body mass index (BMI) of 40.0 to 44.9 in adult, unspecified obesity type ([facility]); Multilevel degenerative disc disease; Fibromyalgia 10/26/2024 Orders Only [facility] [address] [place] [phone] Vivien Ohara MD 10/26/2024 Travel 10/26/2024 Refill [facility] MED[facility] [address] [place] [phone] Vivien Ohara MD Type 2 diabetes mellitus without complication, without long-term current use of insulin ([facility]) 10/21/2024 Telephone [facility] MEDICINE [address] [place] [address] Vivien Ohara MD chart prep 10/21/2024 Refill [facility] [address] [place] [address] Vivien Ohara MD Type 2 diabetes mellitus without complication, without long-term current use of insulin ([facility]); Fibromyalgia 10/18/2024 Orders Only GENERIC EXTERNAL DATA DEPARTMENT Provider, Generic External Data 10/17/2024 Refill [facility] [address] [place] [phone] Vivien Ohara MD Type 2 diabetes mellitus without complication, without long-term current use of insulin ([facility]) 09/22/2024 1:20 PM EST Office Visit [facility] [address] [place] [phone] Oksana Ernst ANP Dysuria (Primary Dx); Gastroesophageal reflux disease, unspecified whether esophagitis present; Vaginal itching; Type 2 diabetes mellitus with hyperlipidemia (CMS/[facility]) ([facility]) 09/09/2024 Refill [facility] [address] [place] [phone] Oksana Ernst ANP Primary hypertension 09/09/2024 Refill [facility] [address] [place] [address] Vivien Ohara MD Seasonal allergic rhinitis, unspecified trigger; Multinodular goiter; Primary hypertension from Last 3 Months Immunizations Name Administration [...] is your housing situation today? I have fallonklaus bello 09/23/[address] you [...] Description 02/01/2025 3:00 PM EDT Office Visit [facility] MEDICINE [address] [place] [address] Vivien Ohara MD [address] [place] [address] Health Maintenance Due Date Last Done Comments [...] Mammogram 01/06/2026 01/07/2024 Eye Exam 04/30/2026 04/30/2024, 1009/2023, 04/30/2024, Additional history exists DTaP/Tdap/Td Vaccines (3 [...] EST Type 2 diabetes mellitus with hyperlipidemia ([facility]/H[facility]) ([facility]) POCT GLYCATED HEMOGLOBIN, TOTAL Routine 09/22/2024 3:10 PM EST Type 2 diabetes mellitus with hyperlipidemia ([facility]) ([facility]) URINALYSIS, COMPLETE Routine 09/22/2024 1:52 PM EST Dysuria CULTURE, URINE, ROUTINE Routine 09/22/2024 1:52 PM EST Dysuria BACTERIAL VAGINOSIS PANEL Routine 09/22/2024 1:52 PM EST Vaginal itching LIPID PANEL WITH REFLEX TO DIRECT LDL Routine 05/13/2024 11:00 AM EDT Type 2 diabetes mellitus without complication, without long-term current use of insulin ([facility]) Hypertension, unspecified type BI MAMMOGRAM SCREENING TOMOSYNTHESIS BILATERAL Routine 01/07/2024 12:55 PM EDT ALBUMIN, RANDOM URINE W/CREATININE Routine 05/01/2022 4:14 PM EDT from Last 3 Months or Most Recently Relevant to Health Maintenance Results * Cytopath-cell enhanced (11/23/2024 5:14 PM EDT) 11/23/2024 5:14 PM EDT 11/24/2024 9:42 AM EDT [facility] - 11/24/2024 11:36 AM EDT ----- ------- Name: Deleon,Lia ?Age/Sex: 64/F ? : 1960 Unit#: [id number] ?? Attend Dr: Nikunj Simon MD ?Re11/23/24 ?Status: DEP REF ? [facility] ?Disch: ? ----- ------- SPEC : [id number] ? RECD: 11/24/24 ? STATUS: ??SOUT ? REQ NUM: [id number] ? LORNA: 11/23/24-1713 ? SUBM DR: Nikunj Simon MD ? [...] Copies To: ?? Nikunj Simon MD ?? [facility] ?? [address] [place] [address] [address]. Castellanos [address] ?? [place] [address] ?? [phone] ?? [email or web address] ?? Vivien Ohara MD ?? [facility] ?? [address] [facility] ?? [place] [address] ?? [phone] ----- ------- Signed (signature on file) John Soto MD 11/24/24 1136 ? ----- ------- ? END OF REPORT ? Generic External Data Provider LAB CYTOLOGY ORDE RABLES Final Result Performing Organization Address [facility] de Phone Number [facility] [address] [place] [address] [phone] * Culture, Urine, Routine (11/23/2024 2:00 PM EDT) Only the most recent of3 resultswithin the time period is included. Urine Urine specimen obtained by clean catch procedure / Unknown 11/23/2024 2:00 PM EDT 11/23/2024 5:14 PM EDT Comment:UACC Narrative [facility] - 11/25/2024 10:52 AM EDT Urine Culture Report Result Urine Culture 10,000 to 50,000 cfu/ml Urine Culture Mixed bacterial brigitte characteristic of Urine Culture urogenital contamination. Specimen Source: Urine clean catch Generic External Data Provider LAB MICROBIOLOGY - GENERAL ORDERABLES Final Result Performing Organization Address [facility] de Phone Number [facility] [address] [place] [phone] * POCT Rapid Influenza B CHAPA ID NOW (10/26/2024 1:07 PM EDT) Influenza B Negative Negative, Indeterminate [facility] QC Media Lot # [id number] [facility] Lot# Expiration Date 77, [facility] Swab 10/26/2024 1:07 PM EDT Vivien Ohara MD POINT OF CARE TEST ENTER/EDIT OR DERABLES Final Result Performing Organization Address [facility] de Phone Number [facility] [address] [place] [address] [phone] * POCT Rapid Influenza A CHAPA ID NOW (10/26/2024 1:07 PM EDT) [facility] Influenza A Negative Negative, Indeterminate [facility] QC Media Lot # [id number] [facility] Lot# Expiration Date [facility] Swab 10/26/2024 1:07 PM EDT Vivien Ohara MD POINT OF CARE TEST ENTER/EDIT OR DERABLES Final Result [facility] [address] [place] [phone] * POCT Rapid Strep A CHAPA ID NOW (10/26/2024 12:28 PM EDT) [facility] Rapid Strep A Screen Negative Negative, None Detected QC Media Lot # [id number] Lot# Expiration Date Swab 10/26/2024 12:2 8 PM EDT Vivien Ohara MD POINT OF CARE TEST ENTER/EDIT OR DERABLES Final Result * POCT Rapid Covid-19 BinaxNOW (10/26/2024 12:28 PM EDT) [facility] Rapid COVID Ag Negative QC Media Lot # [id number] Lot# Expiration Date Swab 10/26/2024 12:2 8 PM EDT Vivien Ohara MD POINT OF CARE TEST ENTER/EDIT OR DERABLES Final Result * (ABNORMAL) Urinalysis, Complete, with Reflex to Culture (10/26/2024 12:00 AM EDT) [facility] Color Urine Yellow [facility] Appearance Urine Clear [facility] PH 6.0 5.0 - 9.0 [facility] Glucose Urine UA 100(A) Negative mg/dL [facility] Urine Blood Small (1+)(A) Negative [facility] Specific [place] - Urine 1.010 1.005 - 1.025 [facility] Urine Protein Negative Neg-Trace mg/dL [facility] Urine Ketones Negative Negative mg/dL [facility] Nitrite Urine Negative Negative [facility] Leukocyte Esterase Urine Large (3+)(A) Negative [facility] RBC Urine 0-2 0 - 2 /HPF [facility] Urine WBC 0-5 0 - 5 /HPF [facility] Urine Squamous Epithelial Cell 6-10 0 - 2 /HPF [facility] Urine Bacteria 1+ None Seen [facility] Hyaline Casts, Urine 0-2 0 - 2 /LPF [facility] Urine 10/26/2024 10/26/2024 Narrative [facility] - 10/26/2024 4:50 PM EDT Urine, Clean Catch us Vivien Ohara MD LAB URINE ORDERABLES Final Resul t Performing Organization Address [facility]/ZIP Co de Phone Number [facility] [address] [place] [phone] * High Sensitivity Troponin I (10/18/2024 4:10 PM EDT) Only the most recent of2 resultswithin the time period is included. TROPONIN I HIGH SENSITIVITY <2.7 <3.5 - 17.0 ng/L [facility] Comment:The Chapa high sens itivity Troponin-I results should beused in conjunction with other diagnostic information suchas ECG, clinical observations and information, and patientsymptoms to aid in the diagnosis of NH. 10/18/2024 4:10 PM EDT 10/18/2024 4:13 PM EDT us Generic External Data Provider LAB BLOOD ORDERAB LES Final Result Performing Organization Address [facility]/ZIP Co de Phone Number [facility] [address] [place] [address] [phone] * TSH with Reflex to Free T4 (10/18/2024 2:03 PM EDT) TSH reflex Free T4 2.92 0.32 - 4.0 uIU/mL [facility] 10/18/2024 2:03 PM EDT 10/18/2024 2:08 PM EDT us Generic External Data Provider LAB BLOOD ORDERAB LES Final Result [facility] [address] [place] [address] [phone] * (ABNORMAL) CBC auto differential (10/18/2024 2:03 PM EDT) White Blood Count 10.4 4.8 - 10.8 X10*3/uL [facility] Red Blood Count 4.55 4.20 - 5.50 X10*6/uL [facility] Hemoglobin 13.2 12.0 - 16.0 g/dl [facility] Hematocrit 38.1 37.0 - 47.0 % [facility] Mean Corpuscular Volume 83.7 80.0 - 98.0 fL [facility] Mean Corpuscular Hemoglobin 29.0 27.0 - 33.0 pg [facility] Mean Corpuscular HGB Conc 34.6 31.0 - 35.0 g/dl [facility] Red Cell Distribution Width 13.7 11.0 - 16.0 % [facility] Platelet Count 234 160 - 400 X10*3/uL [facility] Mean Platelet Volume 9.7 9.4 - 12.3 fL [facility] Neutrophils Percent Auto 61.7 45 - 73 % [facility] Imm Gran Pct Auto 0.5(H) 0.0 - 0.4 % [facility] Lymphocytes Percent Auto 27.0 20 - 40 % [facility] Monocytes Percent Auto 7.6 2 - 11 % [facility] Eosinophils Percent Auto 2.9 0 - 4 % [facility] Basophils Percent Auto 0.3 0 - 2 % [facility] NRBC Pct Auto 0.0 0.0 - 0.2 /100WBC [facility] Neutrophils Absolute Auto 6.4 2.0 - 8.3 x10*3/uL [facility] Imm Gran Abs Auto 0.05(H) 0.00 - 0.03 X10*3/uL [facility] Lymphocytes Absolute Auto 2.8 1.2 - 4.9 X10*3/uL [facility] Monocytes Absolute Auto 0.8 0.1 - 1.2 X10*3/uL [facility] Eosinophils Absolute Auto 0.3 0.0 - 0.4 X10*3/uL [facility] Basophils Absolute Auto 0.0 0.0 - 0.2 X10*3/uL [facility] NRBC Abs Auto 0.000 0.0 - 0.012 X10*3/uL [facility] 10/18/2024 2:03 PM EDT 10/18/2024 2:08 PM EDT Generic External Data Provider LAB BLOOD ORDERAB LES Final Result Performing Organization Address City/[facility]/ZIP Co de Phone Number [facility] [address] [place] [phone] * Magnesium (10/18/2024 2:03 PM EDT) Magnesium 1.7 1.6 - 2.6 mg/dL [facility] 10/18/2024 2:03 PM EDT 10/18/2024 2:08 PM EDT Generic External Data Provider LAB BLOOD ORDERAB LES Final Result Performing Organization Address [facility]/ZIP Co de Phone Number [facility] [address] [place] [phone] * Lipase (10/18/2024 2:03 PM EDT) Lipase 23 8 - 78 U/L [facility] 10/18/2024 2:03 PM EDT 10/18/2024 2:08 PM EDT us Generic External Data Provider LAB BLOOD ORDERAB LES Final Result [facility] [address] [place] [phone] * (ABNORMAL) Comprehensive Metabolic Panel (10/18/2024 2:03 PM EDT) Sodium 140 135 - 145 mmol/L [facility] Potassium 3.9 3.3 - 5.1 mmol/L [facility] Chloride 109(H) 96 - 108 mmol/L [facility] Carbon Dioxide 25 22 - 29 mmol/L [facility] Anion Gap 10(L) 12 - 20 [facility] Urea Nitrogen (BUN) 13 9 - 16 mg/dL [facility] Creatinine, Serum 0.74 0.5 - 1.4 mg/dL [facility] Creatinine Clr Calc Pharmacy 70.6 [facility] Comment:Provided height and weight: 147.32 cm,86.2 kg.eGFR (calculated from the MDRD study equation) and eCrCl(calculated from the Cockcroft-Gault equation) are based ondifferent parameters and may not yield comparable results.If eCrCl result is absurd, please check patient'sheight/weight. Estimated Glomerular Filt Rate >60 [facility] Comment:Chronic Kidney Disea se: Estimated GFR < 60 mL/min/1.59w6Rhzmap Kidney Disease: Estimated GFR < 15 mL/min/1.73m2 Glucose 151(H) 60 - 115 mg/dL [facility] Calcium 9.0 8.4 - 10.2 mg/dL [facility] Bilirubin, Total 0.3 0.0 - 1.0 mg/dL [facility] Aspartate Amino Transferase 20 5 - 31 U/L [facility] Alanine Aminotransferase 16 0 - 31 U/L [facility] Total Protein 7.8 6.5 - 8.0 g/dL [facility] Albumin Level 3.7 3.5 - 5.0 g/dL [facility] Alkaline Phosphatase 89 39 - 117 U/L [facility] 10/18/2024 2:03 PM EDT 10/18/2024 2:08 PM EDT us Generic External Data Provider LAB BLOOD ORDERAB LES Final Result [facility] [address] [place] [phone] * XR Chest 2 Views (10/18/2024 1:55 PM EDT) Anatomical Region Laterality Modality Chest Radiographic Diana ging 10/18/2024 1:55 PM EDT Narrative 10/18/2024 1:56 PM EDT ? [facility] ?[address] ?[place] [address] ?XRay Report ? Signed ? Patient: Lia Deleon ?MR#: [id number] ?? 910 ? : 1960 ?Acct:[id number] ? Age/Sex: 64 / F ?ADM Date: 10/18/24 ? Loc: HO.ED ? Attending Dr: ? Ordering Physician: Ligia Dale ?? Date of Service: 10/18/24 ?? Procedure(s): XR chest 2V ?? Accession Number(s): [id number] ? cc: Ligia Dale; Vivien Ohara MD [...] 10/18/245 ? DD/ ? TD/TT: 10/18/245 ? Slitter Cut Off Operator: ? Procedure Note Donotuseinterpreter, Image - 10/18/[address] [address] XRay Report Signed Patient: Nathanael Deleon#: [id number] : 9Acct:[id number] Age/Sex: 64 / FADM Date: 10/18/24 Loc: HO.ED Attending Dr: Ordering Physician: Ligia Dale Date of Service: 10/18/24 Procedure(s): XR chest 2V Accession Number(s): [id number] cc: Ligia Dale; Vivien Ohara MD CLINICAL [...] in OV> 10/18/24 1355 DD/ 1355 TD/TT: 10/18/24 1355 Slitter Cut Off Operator: [facility] External Provider IMG XR PROCEDURES Edited Result - Final * SARS-CoV-2 RNA, Influenza A/B, and RSV RNA, Ql NAAT (10/18/2024 12:50 PM EDT) Influenza A PCR NEGATIVE Negative [facility] Influenza B PCR NEGATIVE Negative [facility] Resp Syncy Virus RNA Qual PCR NEGATIVE Negative [facility] SARS COV2 PCR NEGATIVE Negative [facility] Comment:All test results mus t [...] use by authorized laboratories.Testing performed on the [employer] GeneXpert utilizingreal-time RT-PCR.All SARS CoV2 and positive influenza A/B results arereported to [facility]. 10/18/2024 12:5 0 PM EDT 10/18/2024 12:53 PM EDT [facility] External Data Provider LAB MICROBIOLOGY - GENERAL ORDERABLES Final Result [facility] [address] [place] [phone] * (ABNORMAL) POCT HGB A1C (09/22/2024 3:10 PM EST) Pathologist [facility] Hemoglobin A1C 6.8(A) 4.0 - 6.0 % Blood 09/22/2024 3:10 PM EST Oksana Ernst ANP POINT OF CARE TEST ENTER/EDIT OR DERABLES Final Result * POCT Glucose (09/22/2024 3:10 PM EST) Pathologist [facility] [place] Glucose Blood, POC 128 60 - 200 mg/dL Blood Capillary blood specimen / Unknown 09/22/2024 3:10 PM EST Oksana Ernst ANP POINT OF CARE TEST ENTER/EDIT OR DERABLES Final Result * Bacterial Vaginosis Panel (09/22/2024 1:52 PM EST) Pathologist [facility] TRICHOMONAS VAGINALIS DETECTION BY PCR NOT DETECTED Not Detect [facility] BACTERIAL VAGINOSIS DETECTION BY PCR NEGATIVE Negative [facility] Comment:The BV organism targ ets [...] DETECTION BY PCR NOT DETECTED Not Detect [facility] Delaney glab krusei PCR NOT DETECTED Not Detect [facility] Swab Vaginal structure / Unknown 09/22/2024 1:52 PM EST 09/22/2024 4:10 PM EST Critical access hospital LAB MICROBIOLOGY - GENERAL ORDER HALINA Final Result [facility] [address] [place] [phone] * (ABNORMAL) Urinalysis Complete (09/22/2024 1:52 PM EST) Color Urine Yellow [facility] Appearance Urine Clear [facility] PH 6.5 5.0 - 9.0 [facility] Glucose Urine UA Negative Negative mg/dL [facility] Urine Blood Small (1+)(A) Negative [facility] Specific Starbuck - Urine 1.010 1.005 - 1.025 [facility] Urine Protein Negative Neg-Trace mg/dL [facility] Urine Ketones Negative Negative mg/dL [facility] Nitrite Urine Negative Negative [facility] Leukocyte Esterase Urine Large (3+)(A) Negative [facility] RBC Urine 3-5(A) 0 - 2 /HPF [facility] Urine WBC >50(A) 0 - 5 /HPF [facility] Urine Squamous Epithelial Cell 11-20 0 - 2 /HPF [facility] Urine Bacteria 1+ None Seen [facility] Hyaline Casts, Urine 0-2 0 - 2 /LPF [facility] Urine (Urine, Random) 09/22/2024 1:52 PM EST 09/22/2024 4:10 PM EST us Oksana HOWELL LAB URINE ORDERABLES Final Resul t Performing Organization Address [facility] Co de Phone Number [facility] [address] [place] [phone] * (ABNORMAL) Lipid Panel with Reflex to Direct LDL (05/13/2024 11:00 AM EDT) Triglycerides 200(H) <150 mg/dL [facility] Comment:Desirable Triglyceri de: less than 150 mg/dLBorderline High Triglyceride 150-199 mg/dLHigh Triglyceride: 200-499 mg/dLVery High Triglyceride: greater than or equal to 5OO mg/dL Cholesterol 180 <200 mg/dL [facility] Comment:Desirable Cholestero l: less than 200 mg/dLBorderline High Cholesterol: 200-239 mg/dLHigh Cholesterol: greater than 239 mg/dL LDL Cholesterol Calculated 95 <100 mg/dL [facility] Comment:Desirable LDL: less than 100 mg/dLNear Optimal/Above Optimal LDL: 110- 129 mg/dLBorderline High LDL: 130-159 mg/dLHigh LDL: 160-189 mg/dLVery High LDL: greater than or equal to 190 mg/dL HDL Cholesterol 45 >40 mg/dL [facility] Comment:Desirable HDL: great er than 40 mg/dL Note: This HDL assay may give artificially low results in patients with liver disease. Blood 05/13/2024 11:0 0 AM EDT 05/13/2024 11:37 AM EDT us Vivien Ohara MD LAB BLOOD ORDERABLES Final Resul t Performing Organization Address [facility] Co de Phone Number [facility] [address] [place] [phone] * BI Mammogram Screening Tomosynthesis Bilateral (01/07/2024 12:55 PM EDT) Anatomical Region Laterality Modality Breast Bilateral Mammography 01/07/2024 12:5 5 PM EDT Narrative 02/06/2024 9:41 AM EDT ? [facility] ? [address] ?[place] [address] ? Mammography Report ? Signed ? Patient: Deleon,Lia ?MR#: [id number] ?? [id number] ? : 1960 ?Acct:[id number] ? Age/Sex: 63 / F ?ADM Date: 01/07/24 ? Loc: HO.MAMMO ? Attending Dr: Vivien Ohara MD ? Ordering Physician: Vivien Ohara MD ?Results: 1Negative ? Date of Service: 01/07/24 ?Follow Up: 1 Year From Orig ?? inal Mammogram ? Procedure(s): MM tomosynthesis screening BI ?? Accession Number(s): [id number] ? cc: Vivien Ohara MD ? EXAMINATION: [...] by Aga Cerrato MD in OV> ? 02/06/2437 ? DD/ 1255 ? TD/TT: ? Slitter Cut Off Operator: ? Procedure Note Donchristalkjbonnieter, Image - 02/06/2024 [facility] [address] [place], [place] [address] Mammography Report Signed Patient: Lia DeleonMR#: [id number] : 9Acct:[id number] Age/Sex: 63 / FADM Date: 01/07/24 Loc: BECK Attending Dr: Vivien Ohara MD Ordering Physician: Vivien Ohara MDResults: 1Negative Date of Service: 01/07/24Follow Up: 1 Year From Orig ina Mammogram Procedure(s): MM tomosynthesis screening BI Accession Number(s): [id number] cc: Vivien Ohara MD EXAMINATION: MM SCREENING [...] in OV> 02/06/24 0937 DD/ 1255 TD/TT: Slitter Cut Off Operator: Vivien Ohara MD IMG BI PROCEDURES Final [...] LABS 05/01/2022 4:14 PM EDT Kandi Vanessa AGENCY APPOINTMENTS SUPERVISOR LAB URINE ORDERABLES Final Result [facility] from Last 3 Months or Most Recently Relevant to Health Maintenance Insurance [facility] [employer] (HMO D-SNP) [place] [id number] Care Teams Vessel Operator Relationship Specialty Start Date End Date Vivien Ohara MD [address] [place] [address] PCP - General Family Medicine 08/19/23
--- OUTSIDE RECORDS SUMMARY | 2024-12-03 09:18 | XMS_ITS | Encounter Summary ---
Author Organization [employer] Address [address] [place] [address] Care Team Providers Care Environmental Services Technician Name Role Phone Vivien Ohara MD Primary Care Provider [phone] Reason for Visit * Reason Comments Med Refill Encounter Details Date Type Department Care Team ([facility] st Contact Info) Description 05/14/2024 Refill [facility] [address] [place], [place] [phone] Vivien Ohara MD [address] [place], [place] [phone] Mild intermittent asthma with acute exacerbation Social [...] PM EDT Office Visit [facility] [address] [place] [phone] Vivien Ohara MD [address] [place] [phone] documented as of this encounter Visit Diagnoses Diagnosis Mild intermittent asthma with acute exacerbation documented in this encounter Additional Health Concerns Assessment Noted Time PHQ-9 Depression Total Score: 0 03/14/20 23 1:40 PM EDT documented as of this encounter Care Teams Environmental Services Technician Relationship Specialty Start Date End Date Vivien Ohara MD [address] [place] [address] [phone] PCP - General Family Medicine 08/19/23 documented as of this encounter
--- OUTSIDE RECORDS SUMMARY | 2024-12-03 09:18 | XMS_ITS | Encounter Summary ---
Author Organization [employer] Address [address] [place] [address] [address] [place] [address] Care Team Providers Care Motorcycle Subassembler Name Role Phone Vivien Ohara MD Primary Care Provider [phone] Reason for Referral * Consultation (Routine) - Closed Specialty Diagnoses / Procedures Referred By Contac t Referred To Contact Pharmacy Diagnoses Type 2 diabetes mellitus without complication, without long-term current use of insulin (CMS/HCC) Hypertension, unspecified type Vivien Ohara MD [address] [place] [address] Phone: tel: fax: Referral ID Status Reason Start Date Expiration Date V isits Requested Visits Authorized [id number] Closed Continuity of Care 04/29/2024 04/29/2025 6 6 Encounter Details Date Type Department Care Team (Late st Contact Info) Description 04/29/2024 Orders Only [facility] [address] [place], [place] [phone] Vivien Ohara MD [address] [place], [place] [phone] Type 2 diabetes mellitus without complication, without [...] Description 02/01/2025 3:00 PM EDT Office Visit [facility] [address] [place] [phone] Vivien Ohara MD [address] [place] [phone] Scheduled Referrals Name Type Priority Associated Diagnoses Orde r Schedule Referral to Pharmacy [facility] Outpatient Referral Routine Type 2 diabetes mellitus without complication, without long-term current use of insulin ([facility]) Hypertension, unspecified type Ordered: 04/29/2024 documented as of this encounter Visit Diagnoses Diagnosis Type 2 diabetes mellitus without complication, without long-term current use of insulin (CMS/[facility])- Primary Hypertension, unspecified type documented in this encounter Additional Health Concerns Assessment Noted Time PHQ-9 Depression Total Score: 0 03/14/20 23 1:40 PM EDT documented as of this encounter Care Teams Motorcycle Subassembler Relationship Specialty Start Date End Date Vivien Ohara MD [address] [place] [phone] PCP - General Family Medicine 08/19/23 documented as of this encounter
[2024-12-03 09:36] VITALS: PULSE 79; O2SAT 96
== END 2024-12-03 08:55 | disposition home or self-care (01) ==
LOC: HO.RESP 08:54
PROVIDERS: PCP Family Medicine; Visit Provider Internal Medicine
DX: J45.909 Unspecified asthma, uncomplicated (principal); J84.10 Pulmonary fibrosis, unspecified; E66.9 Obesity, unspecified
CPT/HCPCS: 94010; 94640; 94727; 94729

== ENCOUNTER → 2024-12-03 09:00 | Outpatient (BNV) | payer OTHER, SELFPAY | PROVIDERS: PCP Family Medicine; Visit Provider Hospitalist | DX: J45.909 Unspecified asthma, uncomplicated (principal) | CPT/HCPCS: 94060; 94727; 94729 ==

== ENCOUNTER 2024-12-04 13:13 | Outpatient (REF) | payer OTHER, SELFPAY ==
--- NOTE | ~2024-12-04 | CT_ITS ---
CLINICAL HISTORY: J45.909 - Unspecified asthma, uncomplicated --- Additional Notes or Special Instruc tions: CHEST XRAY SHOWS RETICULATION , PT HAS INTERMITTENT COUGH AND SOB . CT Chest without IV contrast: Technique HRCT thin slices with edge enhancement Comparison: Chest x-ray 10/18/2024 Findings: Heart size is normal, with no pericardial effusion Aorta diameter is normal Pulmonary artery diameter is unremarkable Lymph nodes: No adenopathy Trachea and Esophagus: Unremarkable Lungs: No consolidation. No pneumothorax. No large airway obstruction. There is mild posterior right lower lobe interstitial and subpleural scar/atelectasis. Pleura: No pleural effusion Skeletal: No fractures. Chest wall is unremarkable Below the diaphragm: The visualized portions of liver and spleen are unremarkable. Impression: Mild posterior right costophrenic sulcus linear scar/atelectasis. No consolidation Mild nonspecific posterior gravity dependent edema/ hemo concentration. This document has been electronically signed by: Rao Garcia MD on 12/04/2024 17:02:32
== END 2024-12-04 13:14 | disposition home or self-care (01) ==
LOC: HO.CT 13:13
PROVIDERS: PCP Family Medicine; Visit Provider Internal Medicine
DX: J45.909 Unspecified asthma, uncomplicated (principal); J84.10 Pulmonary fibrosis, unspecified
CPT/HCPCS: 71250

== ENCOUNTER → 2024-12-04 13:16 | Outpatient (BNV) | payer OTHER, SELFPAY | PROVIDERS: PCP Family Medicine; Visit Provider Radiology Diagnostic Radiology | DX: J98.11 Atelectasis (principal) | CPT/HCPCS: 71250 ==

== ENCOUNTER → 2024-12-16 13:09 | Outpatient (REF) | payer OTHER, SELFPAY ==
--- OUTSIDE RECORDS SUMMARY | 2024-12-16 13:45 | XMS_ITS | Encounter Summary ---
Author Organization [employer] Address [address] [place] [address] Care Team Providers Care Radiology Equipment Servicer Name Role Phone Vivien Ohara MD Primary Care Provider [phone] Encounter Details Date Type Department Care Team ([facility] Contact Info) Description 10/27/2024 Orders Only [facility] [address] [place], [place] [phone] Vivien Ohara MD [address] [place] [phone] Social History Tobacco Use Types Packs/Day Years [...] Description 02/01/2025 3:00 PM EDT Office Visit [facility] [address] [place] [phone] Vivien Ohara MD [address] [place] [phone] documented as of this encounter Visit Diagnoses Not on filedocumented in this encounter Additional Health Concerns Assessment Noted Time PHQ-9 Depression Total Score: 13 025 12:01 PM EDT documented as of this encounter Care Teams Radiology Equipment Servicer Relationship Specialty Start Date End Date Vivien Ohara MD [address] [place] [phone] PCP - General Family Medicine 08/19/23 documented as of this encounter
--- OUTSIDE RECORDS SUMMARY | 2024-12-16 13:46 | XMS_ITS | Clinical Summary ---
Author Organization [employer] Address [address] [facility] 7[address] [place] [address] Care Team Providers Care Vehicle Painter Name Role Phone Vivien Ohara MD Primary Care Provider [phone] Allergies Active Allergy Reactions Criticality Noted Date [...] 023 Active Blood Glucose Monitoring Suppl (FreeStyle Red Oak Lite) w/Device kit TEST BLOOD SUGAR THREE [...] DAILY NEEDED 90 mL 3 024 Active lidocaine (Lidoderm) 5 % patchIndications :Primary osteoarthritis involving multiple joints Apply 1 patch topically Once per day. Remove & discard patch within 12 hours or as directed by . 30 patch Active Alcohol Swabs (Alcohol Prep) 70 % pads USE EVERY DAY 100 each 024 Active EPINEPHrine (Epipen) 0.3 MG/0.3ML injection [...] by mouth Once per day. 024 Active omeprazole (PriLOSEC) [address] capsule TAKE 1 CAPSULE BY MOUTH EVERY DAY 90 capsule 025 Active levothyroxine (Synthroid, Levoxyl) 50 MCG tabletIndication s:Multinodular goiter TAKE 1 TABLET BY MOUTH EVERY DAY 90 tablet 025 Active fenofibrate (Tricor) 54 MG tablet TAKE 1 TABLET BY MOUTH ONCE DAILY IN THE MORNING 90 tablet 025 Active aspirin (Aspirin Low Dose) 81 MG EC tabletIndication s:Primary hypertension TAKE 1 TABLET BY MOUTH ONCE DAILY IN THE MORNING 90 tablet 025 Active TRUEplus Lancets 33G miscIndications: Type 2 diabetes mellitus without complication, without long-term current use of insulin (CMS/HCC) TEST BLOOD SUGAR THREE TIMES DAILY DIRECTED 100 each 5 025 Active FREESTYLE LITE test stripIndications :Type 2 diabetes mellitus without complication, without long-term current use of insulin (CMS/HCC) TEST BLOOD SUGAR THREE TIMES DAILY DIRECTED 100 strip 5 03/26/2 025 Active gabapentin (Neurontin) 100 MG capsuleIndicatio ns:Fibromyalgia TAKE 2 CAPSULES BY MOUTH EVERY 8 HOURS 180 capsule 5 Active Ozempic, 0.25 or 0.5 MG/DOSE, 2 MG/3ML solution pen-injectorIndi cations:Type 2 diabetes mellitus without complication, without long-term current use of insulin (CMS/HCC) INJECT 0.25 MG SUBCUTANEOUSLY EVERY 7 DAYS IN THE ABDOMEN, THIGHS OR UPPER ARM. ROTATE INJECTION SITES. 3 mL 1 Active metFORMIN XR (Glucophage-XR) 500 MG 24 [...] Once per day. 90 tablet 1 Active fluticasone (Flonase) 50 MCG/ACT nasal sprayIndications :Seasonal allergic rhinitis, unspecified trigger INSTILL 1-2 SPRAYS IN EACH NOSTRIL ONCE DAILY 48 g 1 Active Arnuity Ellipta 100 MCG/ACT inhalerIndicatio ns:Mild intermittent asthma with acute exacerbation INHALE 1 PUFF BY MOUTH EVERY DAY AT THE SAME TIME RINSE MOUTH AFTER USING 30 each 3 025 Active valsartan (Diovan) 160 MG tabletIndication s:Hypertension, unspecified type TAKE 1 TABLET BY MOUTH EVERY DAY 90 tablet 3 025 Active Farxiga 10 MG TAKE 1 TABLET BY MOUTH EVERY DAY 90 tablet 3 025 Active valsartan (Diovan) 160 MG tabletIndication s:Hypertension, unspecified type Take 1 tablet (160 mg) by mouth Once per day. 90 tablet 3 024 2024 Discontinued fluticasone furoate (Arnuity Ellipta) 100 MCG/ACT inhalerIndicatio ns:Mild intermittent asthma with acute exacerbation INHALE 1 PUFF BY MOUTH EVERY DAY AT THE SAME TIME RINSE MOUTH AFTER USING 30 each 3 025 2024 Discontinued Farxiga 10 MG Take 1 tablet by mouth Once per day. 025 2024 Discontinued Active Problems Problem Noted Date [...] 8:44 AM EDT): - previously seen by [facility] Urologist -was recommended bladder suspension surgery -pt has both stress and urge incontinence -will refer back to Urologist -discussed about possible side effects including urinary problem with new medication for type 2 diabetes and pt verbalize understanding Assessment & Plan (05/13/2024 1:54 PM EDT): - previously seen by [facility] Urologist -was recommended bladder suspension surgery -pt has both stress and urge incontinence -will refer back to Urologist -discussed about possible side effects including urinary problem with new medication for type 2 diabetes and pt verbalize understanding Assessment & Plan (01/16/2024 11:23 AM EDT): - previously seen by [facility] Urologist -was recommended bladder suspension surgery [...] TDap/Td: 03/02/2011, states she had repeat in [place]. No records. Will task [place] to try and locate [place] records Foot exam/peripheral pulses: WNL 05/07 on [...] - foot exam: 10/26/24 - eye exam: [facility] Apr 2024, no [...] visit - eye exam: referred again to [facility] care - microalbumin: Apr [...] numbness - eye exam: referred again to [facility] eye care - microalbumin: Apr [...] numbness - eye exam: referred again to [facility] eye care - microalbumin: Apr [...] or referral to allergy / health care marketing specialist Assessment & Plan (10/06/2023 5:02 PM EDT): - continue cetirizine, montelukast, and Fluticasone nasal (Flonase) - check RAST or referral to allergy / health care marketing specialist Dyslipidemia 10/31/2012 Assessment & Plan (10/26/2024 [...] (10/29/2024 10:08 AM EDT): - followed by glove tagger, [place]. Awad, [facility], last seen on 10/15/24 - continue mometasone [...] 10:07 AM EDT): - sleep study at [facility] on 03/06/23 - report recommends in-lab for titration study or auto-PAP 6-20 cm H2O - script for AutoPAP was written in September 2023, still does not have one - recently seen by glove tagger, and re-ordered sleep study / CPAP Assessment & Plan (05/13/2024 1:54 PM EDT): - sleep study at [facility] on 03/06/23, ordered by previous PCP - report recommends in-lab for titration study or auto-PAP 6-20 cm H2O - script for AutoPAP was written in September 2023, will check up on that Assessment & Plan (01/16/2024 11:20 AM EDT): - sleep study at [facility] [place] 03/06/23, ordered by previous PCP - report recommends in-lab for titration study or auto-PAP 6-20 cm H2O - script for AutoPAP was written in September 2023, will check up on that Assessment & Plan (10/06/2023 4:49 PM EDT): - sleep study at [facility] [place] 03/06/23, ordered by previous PCP - [...] Encounters Date Type Department Care Team Description 12/13/2024 Refill [facility] [address] [place] [address] Vivien Ohara MD Hypertension, unspecified type 12/12/2024 Refill [facility] [address] [place] [address] Vivien Ohara MD Mild intermittent asthma with acute exacerbation 11/23/2024 Orders Only GENERIC EXTERNAL DATA DEPARTMENT Provider, Generic External Data 11/09/2024 3:00 PM EDT Clinical Support [facility] [address] [place] [address] Mendy Treadwell RN Hypertension, unspecified type 11/09/2024 Travel 11/09/2024 Refill [facility] [address] [place] [address] Vivien Ohara MD Seasonal allergic rhinitis, unspecified trigger 10/29/2024 Telephone [facility] [address] [facility] [place] [address] Vivien Ohara MD 10/27/2024 Orders Only [facility] [place] [address] Vivien Ohara MD 10/26/2024 11:30 AM EDT Office Visit [facility] [place] [address] Vivien Ohara MD Obstructive sleep apnea syndrome (Primary Dx); Mild intermittent asthma without complication; Hypertension, unspecified type; Gastroesophageal reflux disease, unspecified whether esophagitis present; Mixed stress and urge urinary incontinence; Type 2 diabetes mellitus without complication, without long-term current use of insulin (CMS/HCC); Hypothyroidism, unspecified type; Dyslipidemia; Sensorineural hearing loss (SNHL) of both ears; Seasonal allergic rhinitis, unspecified trigger; Malodorous urine; Dietary counseling; Exercise counseling; Class 3 severe obesity with serious comorbidity and body mass index (BMI) of 40.0 to 44.9 in adult, unspecified obesity type (CMS/HCC); Multilevel degenerative disc disease; Fibromyalgia 10/26/2024 Orders Only [facility] [place] [address] Vivien Ohara MD 10/26/2024 Travel 10/26/2024 Refill [facility] [place] [address] Vivien Ohara MD Type 2 diabetes mellitus without complication, without long-term current use of insulin (CMS/HCC) 10/21/2024 Telephone [facility] [place] [address] Vivien Ohara MD chart prep 10/21/2024 Refill [facility] [address] Vivien Ohara MD Type 2 diabetes mellitus without complication, without long-term current use of insulin (CMS/HCC); Fibromyalgia 10/18/2024 Orders Only GENERIC EXTERNAL DATA DEPARTMENT Provider, Generic External Data 10/17/2024 Refill [facility] [address] [place] [address] Vivien Ohara MD Type 2 diabetes mellitus without complication, without long-term current use of insulin ([facility]) 09/22/2024 1:20 PM EST Office Visit [facility] [address] [place] [address] Oksana Ernst ANP Dysuria (Primary Dx); Gastroesophageal reflux disease, unspecified whether esophagitis present; Vaginal itching; Type 2 diabetes mellitus with hyperlipidemia ([facility]) ([facility]) from Last 3 Months Immunizations Immunization Administration Dates Next Due Hep B, adult [...] Description 02/01/2025 3:00 PM EDT Office Visit [facility] [address] [place] [address] Vivien Ohara MD [address] [place] [address] Health Maintenance Due Date Last Done Comments [...] Mammogram 01/06/2026 01/07/2024 Eye Exam 04/30/2026 04/30/2024, 100 09/2023, 04/30/2024, Additional history exists DTaP/Tdap/Td Vaccines [...] patient's age to complete this topic Meningococcal B Vaccine Aged Out No l onger eligible based on patient's age to complete [...] Procedure Name Priority Date/Time Associated Diagnosis Comments CT CHEST WO CONTRAST Routine 12/04/2024 5:02 PM EDT CYTOPATH-CELL ENHANCED Routine 11/23/2024 5:14 PM EDT [...] Type 2 diabetes mellitus with hyperlipidemia (CMS/HCC) ([facility]) POCT GLYCATED HEMOGLOBIN, TOTAL Routine 09/22/2024 3:10 PM EST Type 2 diabetes mellitus with hyperlipidemia (CMS/HCC) (CMS/[facility]) URINALYSIS, COMPLETE Routine 09/22/2024 1:52 PM EST Dysuria CULTURE, URINE, ROUTINE Routine 09/22/2024 1:52 PM EST Dysuria BACTERIAL VAGINOSIS PANEL Routine 09/22/2024 1:52 PM EST Vaginal itching LIPID PANEL WITH REFLEX TO DIRECT LDL Routine 05/13/2024 11:00 AM EDT Type 2 diabetes mellitus without complication, without long-term current use of insulin ([facility]) Hypertension, unspecified type BI MAMMOGRAM SCREENING TOMOSYNTHESIS BILATERAL Routine 01/07/2024 12:55 PM EDT ALBUMIN, RANDOM URINE W/CREATININE Routine 05/01/2022 4:14 PM EDT from Last 3 Months or Most Recently Relevant to Health Maintenance Results * CT Chest w/o Contrast (12/04/2024 5:02 PM EDT) Anatomical Region Laterality Modality Body, Chest Computed Tomogra phy 12/04/2024 5:02 PM EDT Narrative 12/04/2024 5:05 PM EDT ? [facility] ?[address] ?[place] [address] ? CT Scan Report ? Signed ? Patient: Deleon,Lia ?MR#: [id number] ?? 910 ? : 1960 ?Acct:[id number] ? Age/Sex: 64 / F ?ADM Date: 12/04/24 ? Loc: HO.CT ? Attending Dr: Randolph Awad MD ? Ordering Physician: Randolph Awad MD ?? Date of Service: 12/04/24 ?? Procedure(s): CT chest wo IV con ?? Accession Number(s): [id number] ? cc: Randolph Awad MD; Vivien Ohara MD ? Report Number: ?? [id number]: Total DLP = ??196.00 mGy-cm ? CLINICAL HISTORY: J45.909 - Unspecified asthma, uncomplicated --- Additional Notes or Special Instructions: CHEST XRAY SHOWS RETICULATION , PT HAS INTERMITTENT COUGH ??AND SOB . ? CT Chest without IV contrast: ?? Technique HRCT thin slices with edge enhancement ? Comparison: Chest x-ray 10/18/2024 ? Findings: ? Heart size is normal, with no pericardial effusion ?? Aorta diameter is normal Pulmonary artery diameter is unremarkable ?? Lymph nodes: No adenopathy ?? Trachea and Esophagus: Unremarkable ?? Lungs: ?? No consolidation. ?? No pneumothorax. ?? No large airway obstruction. ?? There is mild posterior right lower lobe interstitial and subpleural ?? scar/atelectasis. ?? Pleura: No pleural effusion ?? Skeletal: No fractures. Chest wall is unremarkable ?? Below the diaphragm: The visualized portions of liver and spleen are ?? unremarkable. ? Impression: ?? Mild posterior right costophrenic sulcus linear scar/atelectasis. No ?? consolidation ?? Mild nonspecific posterior gravity dependent edema/ hemo concentration. ? This document has been electronically signed by: Rao Garcia MD on ?? 12/04/2024 17:02:32 ? Dictated By: ?Rao Garcia MD ? Signed By: ?<Electronically signed by Rao Garcia MD in OV> ?12/04/241703 ? DD/ 01 ? TD/TT: 12/04/24 1702 ? Automotive Product Engineer: ? Procedure Note Donotgabyter, Image - 12/04/[address] [address] [address] Scan Report Signed Patient: Nathanael Deleon#: [id number] 910 : 9Acct:[id number] Age/Sex: 64 / FADM Date: 12/04/24 Loc: HO.CT Attending Dr: Randolph Awad MD Ordering Physician: Randolph Awad MD Date of Service: 12/04/24 Procedure(s): CT chest wo IV con Accession Number(s): [id number] cc: Randolph Awad MD; Vivien Ohara MD Report Number: [id number]: Total DLP = 196.00 mGy-cm CLINICAL HISTORY: J45.909 - Unspecified asthma, uncomplicated ---Additional Notes or Special Instructions: CHEST XRAY SHOWS RETICULATION , PT HAS INTERMITTENT COUGHAND SOB . CT Chest without IV contrast: Technique HRCT thin slices with edge enhancement Comparison: Chest x-ray 10/18/2024 Findings: Heart size is normal, with no pericardial effusion Aorta diameter is normal Pulmonary artery diameter is unremarkable Lymph nodes: No adenopathy Trachea and Esophagus: Unremarkable Lungs: No consolidation. No pneumothorax. No large airway obstruction. There is mild posterior right lower lobe interstitial and subpleural scar/atelectasis. Pleura: No pleural effusion Skeletal: No fractures. Chest wall is unremarkable Below the diaphragm: The visualized portions of liver and spleen are unremarkable. Impression: Mild posterior right costophrenic sulcus linear scar/atelectasis. No consolidation Mild nonspecific posterior gravity dependent edema/ hemo concentration. This document has been electronically signed by: Rao Garcia MD on 12/04/2024 17:02:32 Dictated By: Rao Garcia MD Signed By: <Electronically signed by Rao Gracia MD in OV> 12/04/241703 DD/ 01 TD/TT: 12/04/241701 Automotive Product Engineer: [facility] External Provider IMG CT PROCEDURES Final Result * Cytopath-cell enhanced (11/23/2024 5:14 PM EDT) 11/23/2024 5:14 PM EDT 11/24/2024 9:42 AM EDT [facility] - 11/24/2024 11:36 AM EDT ----- ------- Name: Lia Deleon ?Age/Sex: 64/F ? : 1960 Unit#: [id number] ?? Attend Dr: Nikunj Simon MD ?Re11/23/24 ?Status: DEP REF ? Location: HO.LAB ?Disch: ? ----- ------- SPEC : [id number] ? RECD: 11/24/24 ? STATUS: ??SOUT ? REQ NUM: [id number] ? LORNA: 11/23/24 ? SUBM DR: Nikunj [...] Copies To: ?? Nikunj Simon MD ?? [facility] ?? [address] [place] [address] [address] ?? [place] [address] ?? [phone] ?? [email or web address] ?? Vivien Ohara MD ?? [facility] ?? [address] ?? [place] [address] ?? [phone] ----- ------- Signed (signature on file) John Soto MD 11/24/24 1136 ? ----- ------- ? END OF REPORT ? Generic External Data Provider LAB CYTOLOGY ORDE RABLES Final Result Performing Organization Address [facility] Co de Phone Number [facility] [address] [place], [place] [phone] * Culture, Urine, Routine (11/23/2024 2:00 PM EDT) Only the most recent of3 resultswithin the time period is included. Urine Urine specimen obtained by clean catch procedure / Unknown 11/23/2024 2:00 PM EDT 11/23/2024 5:14 PM EDT Comment:[facility] Narrative [facility] - 11/25/2024 10:52 AM EDT Urine Culture Report Result Urine Culture 10,000 to 50,000 cfu/ml Urine Culture Mixed bacterial brigitte characteristic of Urine Culture urogenital contamination. Specimen Source: Urine clean catch Generic External Data Provider LAB MICROBIOLOGY - GENERAL ORDERABLES Final Result Performing Organization Address [facility]/ZIP Co de Phone Number [facility] [address] [place] [address] [phone] * POCT Rapid Influenza B CHAPA ID NOW (10/26/2024 1:07 PM EDT) [facility] Influenza B Negative Negative, Indeterminate [facility] QC Media Lot # [id number] [facility] Lot# Expiration Date [facility] Swab 10/26/2024 1:07 PM EDT Vivien Ohara MD POINT OF CARE TEST ENTER/EDIT OR DERABLES Final Result Performing Organization Address City/[facility]/ZIP Co de Phone Number [facility] [address] [place] [phone] * POCT Rapid Influenza A CHAPA ID NOW (10/26/2024 1:07 PM EDT) [facility] Influenza A Negative Negative, Indeterminate [facility] QC Media Lot # [id number] [facility] Lot# Expiration Date 065 [facility] Swab 10/26/2024 1:07 PM EDT Vivien Ohara MD POINT OF CARE TEST ENTER/EDIT OR DERABLES Final Result Performing Organization Address [facility] Co de Phone Number [facility] [address] [place] [phone] * POCT Rapid Strep A CHAPA ID NOW (10/26/2024 12:28 PM EDT) [facility] Rapid Strep A Screen Negative Negative, None Detected QC Media Lot # [id number] Lot# Expiration Date Swab 10/26/2024 12:2 8 PM EDT Vivien Ohara MD POINT OF CARE TEST ENTER/EDIT OR DERABLES Final Result * POCT Rapid Covid-19 BinaxNOW (10/26/2024 12:28 PM EDT) [facility] Rapid COVID Ag Negative QC Media Lot # [id number] Lot# Expiration Date [id number] Swab 10/26/2024 12:2 8 PM EDT Vivien Ohara MD POINT OF CARE TEST ENTER/EDIT OR DERABLES Final Result * (ABNORMAL) Urinalysis, Complete, with Reflex to Culture (10/26/2024 12:00 AM EDT) Color Urine Yellow [facility] Appearance Urine Clear [facility] PH 6.0 5.0 - 9.0 [facility] Glucose Urine UA 100(A) Negative mg/dL [facility] Urine Blood Small (1+)(A) Negative [facility] Specific [place] - Urine 1.010 1.005 - 1.025 [facility] Urine Protein Negative Neg-Trace mg/dL [facility] Urine Ketones Negative Negative mg/dL [facility] Nitrite Urine Negative Negative [facility] Leukocyte Esterase Urine Large (3+)(A) Negative [facility] RBC Urine 0-2 0 - 2 /HPF [facility] Urine WBC 0-5 0 - 5 /HPF [facility] Urine Squamous Epithelial Cell 6-10 0 - 2 /HPF [facility] Urine Bacteria 1+ None Seen [facility] Hyaline Casts, Urine 0-2 0 - 2 /LPF [facility] Urine 10/26/2024 10/26/2024 Narrative [facility] - 10/26/2024 4:50 PM EDT Urine, Clean Catch Vivien Ohara MD LAB URINE ORDERABLES Final Resul t [facility] [address] [place] [phone] * High Sensitivity Troponin I (10/18/2024 4:10 PM EDT) Only the most recent of2 resultswithin the time period is included. TROPONIN I HIGH SENSITIVITY <2.7 <3.5 - 17.0 ng/L [facility] Comment:The [place] high sens itivity Troponin-I results should beused in conjunction with other diagnostic information suchas ECG, clinical observations and information, and patientsymptoms to aid in the diagnosis of ND. 10/18/2024 4:10 PM EDT 10/18/2024 4:13 PM EDT Generic External Data Provider LAB BLOOD ORDERAB LES Final Result Performing Organization Address [facility] Co de Phone Number [facility] [address] [place] [phone] * TSH with Reflex to Free T4 (10/18/2024 2:03 PM EDT) [facility] TSH reflex Free T4 2.92 0.32 - 4.0 uIU/mL [facility] 10/18/2024 2:03 PM EDT 10/18/2024 2:08 PM EDT Generic External Data Provider LAB BLOOD ORDERAB LES Final Result Performing Organization Address [facility] Co de Phone Number [facility] [address] [place] [phone] * (ABNORMAL) CBC auto differential (10/18/2024 2:03 PM EDT) [facility] White Blood Count 10.4 4.8 - 10.8 X10*3/uL [facility] Red Blood Count 4.55 4.20 - 5.50 X10*6/uL [facility] Hemoglobin 13.2 12.0 - 16.0 g/dl [facility] Hematocrit 38.1 37.0 - 47.0 % [facility] Mean Corpuscular Volume 83.7 80.0 - 98.0 fL [facility] Mean Corpuscular Hemoglobin 29.0 27.0 - 33.0 pg [facility] Mean Corpuscular HGB Conc 34.6 31.0 - 35.0 g/dl [facility] Red Cell Distribution Width 13.7 11.0 - 16.0 % [facility] Platelet Count 234 160 - 400 X10*3/uL [facility] Mean Platelet Volume 9.7 9.4 - 12.3 fL [facility] Neutrophils Percent Auto 61.7 45 - 73 % [facility] Imm Gran Pct Auto 0.5(H) 0.0 - 0.4 % [facility] Lymphocytes Percent Auto 27.0 20 - 40 % [facility] Monocytes Percent Auto 7.6 2 - 11 % [facility] Eosinophils Percent Auto 2.9 0 - 4 % [facility] Basophils Percent Auto 0.3 0 - 2 % [facility] NRBC Pct Auto 0.0 0.0 - 0.2 /100WBC [facility] Neutrophils Absolute Auto 6.4 2.0 - 8.3 x10*3/uL [facility] Imm Gran Abs Auto 0.05(H) 0.00 - 0.03 X10*3/uL [facility] Lymphocytes Absolute Auto 2.8 1.2 - 4.9 X10*3/uL [facility] Monocytes Absolute Auto 0.8 0.1 - 1.2 X10*3/uL [facility] Eosinophils Absolute Auto 0.3 0.0 - 0.4 X10*3/uL [facility] Basophils Absolute Auto 0.0 0.0 - 0.2 X10*3/uL [facility] NRBC Abs Auto 0.000 0.0 - 0.012 X10*3/uL [facility] 10/18/2024 2:03 PM EDT 10/18/2024 2:08 PM EDT us Generic External Data Provider LAB BLOOD ORDERAB LES Final Result [facility] [address] [place] [phone] * Magnesium (10/18/2024 2:03 PM EDT) Pathologist [facility] Magnesium 1.7 1.6 - 2.6 mg/dL [facility] 10/18/2024 2:03 PM EDT 10/18/2024 2:08 PM EDT Generic External Data Provider LAB BLOOD ORDERAB LES Final Result Performing Organization Address City/[facility]/ZIP Co de Phone Number [facility] [address] [place] [phone] * Lipase (10/18/2024 2:03 PM EDT) Pathologist [facility] Lipase 23 8 - 78 U/L [facility] 10/18/2024 2:03 PM EDT 10/18/2024 2:08 PM EDT [facility] External Data Provider LAB BLOOD ORDERAB LES Final Result Performing Organization Address [facility] Co de Phone Number [facility] [address] [place] [phone] * (ABNORMAL) Comprehensive Metabolic Panel (10/18/2024 2:03 PM EDT) [facility] Sodium 140 135 - 145 mmol/L [facility] Potassium 3.9 3.3 - 5.1 mmol/L [facility] Chloride 109(H) 96 - 108 mmol/L [facility] Carbon Dioxide 25 22 - 29 mmol/L [facility] Anion Gap 10(L) 12 - 20 [facility] Urea Nitrogen (BUN) 13 9 - 16 mg/dL [facility] Creatinine, Serum 0.74 0.5 - 1.4 mg/dL [facility] Creatinine Clr Calc Pharmacy 70.6 [facility] Comment:Provided height and weight: 147.32 cm,86.2 kg.eGFR (calculated from the MDRD study equation) and eCrCl(calculated from the Cockcroft-Gault equation) are based ondifferent parameters and may not yield comparable results.If eCrCl result is absurd, please check patient'sheight/weight. Estimated Glomerular Filt Rate >60 [facility] Comment:Chronic Kidney Disea se: Estimated GFR < 60 mL/min/1.95h5Seuhez Kidney Disease: Estimated GFR < 15 mL/min/1.73m2 Glucose 151(H) 60 - 115 mg/dL [facility] Calcium 9.0 8.4 - 10.2 mg/dL [facility] Bilirubin, Total 0.3 0.0 - 1.0 mg/dL [facility] Aspartate Amino Transferase 20 5 - 31 U/L [facility] Alanine Aminotransferase 16 0 - 31 U/L [facility] Total Protein 7.8 6.5 - 8.0 g/dL [facility] Albumin Level 3.7 3.5 - 5.0 g/dL [facility] Alkaline Phosphatase 89 39 - 117 U/L [facility] 10/18/2024 2:03 PM EDT 10/18/2024 2:08 PM EDT us Generic External Data Provider LAB BLOOD ORDERAB LES Final Result Performing Organization Address City/State/[facility] Co de Phone Number [facility] [address] [place] [address] [phone] * XR Chest 2 Views (10/18/2024 1:55 PM EDT) Anatomical Region Laterality Modality Chest Radiographic Diana ging 10/18/2024 1:55 PM EDT Narrative 10/18/2024 1:56 PM EDT ? [facility] ?[address] [facility] ?[place] [address] ?XRay Report ? Signed ? Patient: Deleon,Lia ?MR#: [id number] ?? 910 ? : 1960 ?Acct:[id number] ? Age/Sex: 64 / F ?ADM Date: 03/23/25 ? Loc: HO.ED ? Attending Dr: ? Ordering Physician: Ligia Dale ?? Date of Service: 10/18/24 ?? Procedure(s): XR chest 2V ?? Accession Number(s): [id number] ? cc: Ligia Dale; Vivien Ohara MD [...] DD/ 1355 ? TD/TT: 10/18/24 1355 ? Automotive Product Engineer: ? Procedure Note Donotkjinterpreter, Image - 10/18/2024 [place] [address] XRay Report Signed Patient: Nathanael Deleon#: [id number] 910 : 9Acct:[id number] Age/Sex: 64 / FADM Date: 10/18/24 Loc: HO.ED Attending Dr: Ordering Physician: Ligia Dale Date of Service: 10/18/24 Procedure(s): XR chest 2V Accession Number(s): [id number] cc: Ligia Dale; Vivien Ohara MD CLINICAL [...] OV> 10/18/24 1355 DD/ 1355 TD/TT: 10/18/241354 Automotive Product Engineer: us [facility] External Provider IMG XR PROCEDURES Edited Result - Final * SARS-CoV-2 RNA, Influenza A/B, and RSV RNA, Ql NAAT (10/18/2024 12:50 PM EDT) Pathologist [facility] Influenza A PCR NEGATIVE Negative [facility] Influenza B PCR NEGATIVE Negative [facility] Resp Syncy Virus RNA Qual PCR NEGATIVE Negative [facility] SARS COV2 PCR NEGATIVE Negative [facility] Comment:All test results mus t be [...] use by authorized laboratories.Testing performed on the LiveLoop GeneXpert utilizingreal-time RT-PCR.All SARS CoV2 and positive influenza A/B results arereported to [facility]. 10/18/2024 12:5 0 PM EDT 10/18/2024 12:53 PM EDT Generic External Data Provider LAB MICROBIOLOGY - GENERAL ORDERABLES Final Result [facility] [address] [place] [address] [phone] * (ABNORMAL) POCT HGB A1C (09/22/2024 3:10 PM EST) Pathologist [facility] Hemoglobin A1C 6.8(A) 4.0 - 6.0 % Blood 09/22/2024 3:10 PM EST [facility] POINT OF CARE TEST ENTER/EDIT OR DERABLES Final Result * POCT Glucose (09/22/2024 3:10 PM EST) Glucose Blood, POC 128 60 - 200 mg/dL Blood Capillary blood specimen / Unknown 09/22/2024 3:10 PM EST Oksana Ernst ANP POINT OF CARE TEST ENTER/EDIT OR DERABLES Final Result * Bacterial Vaginosis Panel (09/22/2024 1:52 PM EST) TRICHOMONAS VAGINALIS DETECTION BY PCR NOT DETECTED Not Detect [facility] BACTERIAL VAGINOSIS DETECTION BY PCR NEGATIVE Negative [facility] Comment:The BV organism targ ets [...] DETECTION BY PCR NOT DETECTED Not Detect [facility] Delaney glab krusei PCR NOT DETECTED Not Detect [facility] Swab Vaginal structure / Unknown 09/22/2024 1:52 PM EST 09/22/2024 4:10 PM EST us Oksana Ernst ANP LAB MICROBIOLOGY - GENERAL ORDER HALINA Final Result [facility] [address] [place] [phone] * (ABNORMAL) Urinalysis Complete (09/22/2024 1:52 PM EST) Color Urine Yellow [facility] Appearance Urine Clear [facility] PH 6.5 5.0 - 9.0 [facility] Glucose Urine UA Negative Negative mg/dL [facility] Urine Blood Small (1+)(A) Negative [facility] Specific [place] - Urine 1.010 1.005 - 1.025 [facility] Urine Protein Negative Neg-Trace mg/dL [facility] Urine Ketones Negative Negative mg/dL [facility] Nitrite Urine Negative Negative [facility] Leukocyte Esterase Urine Large (3+)(A) Negative [facility] RBC Urine 3-5(A) 0 - 2 /HPF [facility] Urine WBC >50(A) 0 - 5 /HPF [facility] Urine Squamous Epithelial Cell 11-20 0 - 2 /HPF [facility] Urine Bacteria 1+ None Seen [facility] Hyaline Casts, Urine 0-2 0 - 2 /LPF [facility] Urine (Urine, Random) 09/22/2024 1:52 PM EST 09/22/2024 4:10 PM EST Oksana HOWELL LAB URINE ORDERABLES Final Resul t [facility] [address] [place] [address] [phone] * (ABNORMAL) Lipid Panel with Reflex to Direct LDL (05/13/2024 11:00 AM EDT) Triglycerides 200(H) <150 mg/dL [facility] Comment:Desirable Triglyceri de: less than 150 mg/dLBorderline High Triglyceride 150-199 mg/dLHigh Triglyceride: 200-499 mg/dLVery High Triglyceride: greater than or equal to 5OO mg/dL Cholesterol 180 <200 mg/dL [facility] Comment:Desirable Cholestero l: less than 200 mg/dLBorderline High Cholesterol: 200-239 mg/dLHigh Cholesterol: greater than 239 mg/dL LDL Cholesterol Calculated 95 <100 mg/dL [facility] Comment:Desirable LDL: less than 100 mg/dLNear Optimal/Above Optimal LDL: 110- 129 mg/dLBorderline High LDL: 130-159 mg/dLHigh LDL: 160-189 mg/dLVery High LDL: greater than or equal to 190 mg/dL HDL Cholesterol 45 >40 mg/dL [facility] Comment:Desirable HDL: great er than 40 mg/dL Note: This HDL assay may give artificially low results in patients with liver disease. Blood 05/13/2024 11:0 0 AM EDT 05/13/2024 11:37 AM EDT us Vivien Ohara MD LAB BLOOD ORDERABLES Final Resul t [facility] [address] [place] [address] [phone] * BI Mammogram Screening Tomosynthesis Bilateral (01/07/2024 12:55 PM EDT) Anatomical Region Laterality Modality Breast Bilateral Mammography 01/07/2024 12:5 5 PM EDT Narrative 02/06/2024 9:41 AM EDT ? [facility] ? [address] ?[place] [address] ? Mammography Report ? Signed ? Patient: Deleon,Lia ?MR#: [id number] ?? 910 ? : 1960 ?Acct:[id number] ? Age/Sex: 63 / F ?ADM Date: 01/07/24 ? Loc: HO.MAMMO ? Attending Dr: Vivien Ohara MD ? Ordering Physician: Vivien Ohara MD ?Results: 1Negative ? Date of Service: 01/07/24 ?Follow Up: 1 Year From Orig ?? inal Mammogram ? Procedure(s): MM tomosynthesis screening BI ?? Accession Number(s): [id number] ? cc: Vivien Ohara MD ? EXAMINATION: [...] 0937 ? DD/ 1255 ? TD/TT: ? Automotive Product Engineer: ? Procedure Note Dondrewinterpreter, Image - 02/06/2024 [facility] [address] [place] [address] Dr. [place], [place] [address] Mammography Report Signed Patient: Nathanael Deleon#: [id number] 910 : 9Acct:[id number] Age/Sex: 63 / FADM Date: 01/07/24 Loc: BECK Attending Dr: Vivien Ohara MD Ordering Physician: Vivien Oharaesults: 1Negative Date of Service: 01/07/24Follow Up: 1 Year From Orig ina Mammogram Procedure(s): MM tomosynthesis screening BI Accession Number(s): [id number] cc: Vivien Ohara MD EXAMINATION: MM SCREENING [...] in OV> 02/06/24 0937 DD/ 1255 TD/TT: Automotive Product Engineer: Vivien Ohara MD IMG BI PROCEDURES Final [...] LABS 05/01/2022 4:14 PM EDT Kandi Vanessa DIRECTOR OF SOLUTIONS ARCHITECTURE LAB URINE ORDERABLES Final Result [facility] from Last 3 Months or Most Recently Relevant to Health Maintenance Insurance [place] [id number] Care Teams Vehicle Painter Relationship Specialty Start Date End Date Vivien Ohara MD [address] [place] [address] PCP - General Family Medicine 08/19/23
--- OUTSIDE RECORDS SUMMARY | 2024-12-16 13:46 | XMS_ITS | Encounter Summary ---
Author Organization [employer] Address [address] [place] [address] 7 [place] [address] Care Team Providers Care Waxer Floor Name Role Phone Kandi Vanessa Primary Care Provider [phone] Lakeisha Yadav NP Primary Care Provider [phone] Vivien Ohara MD Primary Care Provider [phone] Reason for Visit * Reason Onset Date Comments Results 08/03/2022 Encounter Details Date Type Department Care Team ([facility] st Contact Info) Description 08/03/2022 Telephone [facility] [address] [place] [address] Kandi Vanessa FNP [address] [place] [address] Dept [place] [address] Results Social History Tobacco Use Types Packs/Day [...] Description 02/01/2025 3:00 PM EDT Office Visit [facility] [address] [place] [address] Vivien Ohara MD [address] [place] [address] documented as of this encounter Visit Diagnoses Not on filedocumented in this encounter Care Teams Waxer Floor Relationship Specialty Start Date End Date Kandi Vanessa FNP PCP - General Family Medicine 03/07/22 05/02/23 Lakeisha Yadav NP [address] [place] [address] PCP - General Family Medicine 05/03/23 08/18/23 Vivien Ohara MD [address] [place] [address] PCP - General Family Medicine 08/19/23 documented as of this encounter
--- OUTSIDE RECORDS SUMMARY | 2024-12-16 13:46 | XMS_ITS | Encounter Summary ---
Author Organization [employer] Address [address] [place] [address] 7 [place] [address] Care Team Providers Care Chair Inspector And Leveler Name Role Phone Vivien Ohara MD Primary Care Provider Reason for Referral * Consultation (Routine) - Closed Specialty Diagnoses / Procedures Referred By Contac t Referred To Contact Pharmacy Diagnoses Type 2 diabetes mellitus without complication, without long-term current use of insulin (CMS/HCC) Hypertension, unspecified type Vivien Ohara MD [address] [place] [address] Phone: tel: fax: Referral ID Status Reason Start Date Expiration Date V isits Requested Visits Authorized [id number] Closed Continuity of Care 04/29/2024 04/29/2025 6 6 Encounter Details Date Type Department Care Team ([facility] st Contact Info) Description 04/29/2024 Orders Only [facility] [address] [place], [place] [phone] Vivien Ohara MD [address] [place], [place] [phone] Type 2 diabetes mellitus without complication, without [...] Description 02/01/2025 3:00 PM EDT Office Visit [facility] [address] [place] [address] Vivien Ohara MD [address] [place], [place] [phone] Scheduled Referrals Name Type Priority Associated Diagnoses Orde r Schedule Referral to Pharmacy [place] Outpatient Referral Routine Type 2 diabetes mellitus without complication, without long-term current use of insulin ([facility] Hypertension, unspecified type Ordered: 04/29/2024 documented as of this encounter Visit Diagnoses Diagnosis Type 2 diabetes mellitus without complication, without long-term current use of insulin ([facility])- Primary Hypertension, unspecified type documented in this encounter Additional Health Concerns Assessment Noted Time PHQ-9 Depression Total Score: 0 03/14/20 23 1:40 PM EDT documented as of this encounter Care Teams Chair Inspector And Leveler Relationship Specialty Start Date End Date Vivien Ohara MD [address] [place] [address] PCP - General Family Medicine 08/19/23 documented as of this encounter
--- OUTSIDE RECORDS SUMMARY | 2024-12-16 13:46 | XMS_ITS | Encounter Summary ---
Author Organization [employer] Address [address] [facility] 7[address] [place] [address] Care Team Providers Care Spring Intern Name Role Phone Lakeisha Yadav NP Primary Care Provider [phone] Vivien Ohara MD Primary Care Provider [phone] Reason for Visit * Reason Comments Med Refill Encounter Details Date Type Department Care Team ([facility] st Contact Info) Description 08/17/2023 Refill [facility] [address] [place] [address] Name, MD Dylon [address] [place] [address] Mild intermittent asthma with acute exacerbation Social [...] 02/01/2025 3:00 PM EDT Office Visit [facility] [address] [place] [address] Vivien Ohara MD [address] [place] [address] documented as of this encounter Visit Diagnoses Diagnosis Mild intermittent asthma with acute exacerbation documented in this encounter Additional Health Concerns Assessment Noted Time PHQ-9 Depression Total Score: 0 03/14/20 23 1:40 PM EDT documented as of this encounter Care Teams Spring Intern Relationship Specialty Start Date End Date Lakeisha Yadav NP [address] [place] [address] PCP - General Family Medicine 05/03/23 08/18/23 Vivien Ohara MD [address] [place] [address] PCP - General Family Medicine 08/19/23 documented as of this encounter
--- OUTSIDE RECORDS SUMMARY | 2024-12-16 13:46 | XMS_ITS | Encounter Summary ---
Author Organization [employer] Address [address] [facility] 7t [place] [address] Care Team Providers Care Gear Machine Operator Name Role Phone Vivien Ohara MD Primary Care Provider [phone] Reason for Visit * Reason Comments Med Refill Encounter Details Date Type Department Care Team ([facility] Contact Info) Description 12/13/2024 Refill [facility] [address] [place], [place] [phone] Vivien Ohara MD [address] [place], [place] [phone] Hypertension, unspecified type Social History Tobacco Use [...] Description 02/01/2025 3:00 PM EDT Office Visit [facility] [address] [place] [address] Vivien Ohara MD 230 [place] [address] documented as of this encounter Visit Diagnoses Diagnosis Hypertension, unspecified type documented in this encounter Additional Health Concerns Assessment Noted Time PHQ-9 Depression Total Score: 13 025 12:01 PM EDT documented as of this encounter Care Teams Gear Machine Operator Relationship Specialty Start Date End Date Vivien Ohara MD [address] [place] [address] PCP - General Family Medicine 08/19/23 documented as of this encounter
--- OUTSIDE RECORDS SUMMARY | 2024-12-16 13:46 | XMS_ITS | Encounter Summary ---
Author Organization [employer] Address [address] [facility] [address] [address]t [place] [address] Care Team Providers Care Boat Buffer Plastic Name Role Phone Vivien Ohara MD Primary Care Provider [phone] Reason for Visit * Reason Comments Med Refill Encounter Details Date Type Department Care Team ([facility] st Contact Info) Description 05/14/2024 Refill [facility] 230 [place], [place] [phone] Vivien Ohara MD [address] [place], [place] [phone] Mild intermittent asthma with acute exacerbation Social [...] Description 02/01/2025 3:00 PM EDT Office Visit [facility] [address] [place] [phone] Vivien Ohara MD [address] [place] [address] documented as of this encounter Visit Diagnoses Diagnosis Mild intermittent asthma with acute exacerbation documented in this encounter Additional Health Concerns Assessment Noted Time PHQ-9 Depression Total Score: 0 03/14/20 23 1:40 PM EDT documented as of this encounter Care Teams Boat Buffer Plastic Relationship Specialty Start Date End Date Vivien Ohara MD [address] [place] [phone] PCP - General Family Medicine 08/19/23 documented as of this encounter
--- OUTSIDE RECORDS SUMMARY | 2024-12-16 13:46 | XMS_ITS | Encounter Summary ---
Author Organization [employer] Address [address] [facility] [address] 7t [place] [address] Care Team Providers Care Beer Runner Name Role Phone Vivien Ohara MD Primary Care Provider [phone] Reason for Visit * Reason Comments Med Refill Encounter Details Date Type Department Care Team ([facility] st Contact Info) Description 11/06/2023 Refill [facility] [address] [place] [address] Amanda Moreno MD [address] [place] [address] Social History Tobacco Use Types Packs/Day Years [...] Description 02/01/2025 3:00 PM EDT Office Visit [facility] [address] [place] [address] Vivien Ohara MD [address] [place] [address] documented as of this encounter Visit Diagnoses Not on filedocumented in this encounter Additional Health Concerns Assessment Noted Time PHQ-9 Depression Total Score: 0 03/14/20 23 1:40 PM EDT documented as of this encounter Care Teams Beer Runner Relationship Specialty Start Date End Date Vivien Ohara MD [address] [place] [address] PCP - General Family Medicine 08/19/23 documented as of this encounter
--- OUTSIDE RECORDS SUMMARY | 2024-12-16 13:46 | XMS_ITS | Encounter Summary ---
Author Organization [employer] Address [address] [place] [address] 7t [place] [address] Care Team Providers Care Table Machine Operator Name Role Phone Kandi Vanessa Ciera NORTONP Primary Care Provider [phone] Lakeisha Yadav NP Primary Care Provider [phone] Vivien Ohara MD Primary Care Provider [phone] Reason for Visit * Reason Comments Med Refill Encounter Details Date Type Department Care Team ([facility] Contact Info) Description 08/14/2022 Refill [facility] [address] [place] [address] Hailey Gomez MD [address] [place] [address] Cough in adult Social History Tobacco Use [...] Upcoming Encounters Date Type Department Care Team ([facility] Contact Info) Description 02/01/2025 3:00 PM EDT Office Visit [facility] [address] [place] [address] [place] [address] documented as of this encounter Visit Diagnoses Diagnosis Cough in adult documented in this encounter Care Teams Table Machine Operator Relationship Specialty Start Date End Date Kandi Vanessa FNP PCP - General Family Medicine 03/07/22 05/02/23 Lakeisha Yadav NP [facility] [place] [address] PCP - General Family Medicine 05/03/23 08/18/23 [place] [address] PCP - General Family Medicine 08/19/23 documented as of this encounter
--- OUTSIDE RECORDS SUMMARY | 2024-12-16 13:46 | XMS_ITS | Encounter Summary ---
Author Organization [employer] Address [address] [facility] 7t [place] [address] Care Team Providers Care Veterinary Anatomist Name Role Phone Vivien Ohara MD Primary Care Provider [phone] Reason for Visit * Reason Onset Date Comments Med Refill 03/10/2024 Encounter Details Date Type Department Care Team ([facility] Contact Info) Description 03/10/2024 Refill [facility] [address] [place], [place] [phone] Vivien Ohara MD [address] [place], [place] [phone] Primary osteoarthritis involving multiple joints Social History [...] 3:00 PM EDT Office Visit [facility] [address] [place] [address] Vivien Ohara MD [address] [place] [phone] documented as of this encounter Visit Diagnoses Diagnosis Primary osteoarthritis involving multiple joints documented in this encounter Additional Health Concerns Assessment Noted Time PHQ-9 Depression Total Score: 0 03/14/20 23 1:40 PM EDT documented as of this encounter Care Teams Veterinary Anatomist Relationship Specialty Start Date End Date Vivien Ohara MD [address] [place] [address] PCP - General Family Medicine 08/19/23 documented as of this encounter
--- OUTSIDE RECORDS SUMMARY | 2024-12-16 13:46 | XMS_ITS | Encounter Summary ---
Author Organization [employer] Address [address] [facility] 7t [place] [address] Care Team Providers Care Client Onboarding Analyst Name Role Phone Vivien Ohara MD Primary Care Provider [phone] Reason for Visit * Reason Comments Med Refill Encounter Details Date Type Department Care Team ([facility] st Contact Info) Description 05/04/2024 Refill [facility] [address] [place], [place] [phone] Vivien Ohara MD 230 [place], [place] [phone] Social History Tobacco Use Types Packs/Day Years [...] 3:00 PM EDT Office Visit [facility] [address] [place] [address] Vivien Ohara MD [address] [place] [address] documented as of this encounter Visit Diagnoses Not on filedocumented in this encounter Additional Health Concerns Assessment Noted Time PHQ-9 Depression Total Score: 0 03/14/20 23 1:40 PM EDT documented as of this encounter Care Teams Client Onboarding Analyst Relationship Specialty Start Date End Date Vivien Ohara MD [address] [place] [phone] PCP - General Family Medicine 08/19/23 documented as of this encounter
--- OUTSIDE RECORDS SUMMARY | 2024-12-16 13:46 | XMS_ITS | Encounter Summary ---
Author Organization [employer] Address [address] [facility] [address] 7t [place] [address] Care Team Providers Care Placement Secretary Name Role Phone Vivien Ohara MD Primary Care Provider [phone] Reason for Visit * Reason Comments Med Refill Encounter Details Date Type Department Care Team ([facility] Contact Info) Description 12/12/2024 Refill [facility] 230 [place], [place] [phone] Vivien Ohara MD [address] [place], [place] [phone] Mild intermittent asthma with acute exacerbation Social [...] Description 02/01/2025 3:00 PM EDT Office Visit [facility] [address] [place] [address] Vivien Ohara MD [address] [place] [address] documented as of this encounter Visit Diagnoses Diagnosis Mild intermittent asthma with acute exacerbation documented in this encounter Additional Health Concerns Assessment Noted Time PHQ-9 Depression Total Score: 13 025 12:01 PM EDT documented as of this encounter Care Teams Placement Secretary Relationship Specialty Start Date End Date Vivien Ohara MD [address] [place] [phone] PCP - General Family Medicine 08/19/23 documented as of this encounter
== END ==
LOC: HO.SL 13:09
PROVIDERS: PCP Family Medicine; Visit Provider Internal Medicine
DX: G47.33 Obstructive sleep apnea (adult) (pediatric) (principal); E66.9 Obesity, unspecified
CPT/HCPCS: 95806

== ENCOUNTER → 2024-12-16 13:30 | Outpatient (BNV) | payer OTHER, SELFPAY | PROVIDERS: PCP Family Medicine; Visit Provider Internal Medicine | DX: G47.33 Obstructive sleep apnea (adult) (pediatric) (principal) | CPT/HCPCS: 95806 ==

== ENCOUNTER 2024-12-17 16:02 | Outpatient (REF) | payer OTHER, SELFPAY ==
--- NOTE | ~2024-12-17 | US_ITS ---
EXAMINATION: US KIDNEY BILATERAL HISTORY: R31.29 - Other microscopic hematuria TECHNIQUE: Real-time grayscale ultrasound imaging of the kidneys was performed and images were reviewed. COMPARISON: Correlation is made with a CT of the abdomen without contrast dated 11/06/2023 and a right upper quadrant ultrasound dated 11/06/2023. FINDINGS: Right kidney: The right kidney measures 10.8 x 4.8 x 5.3 cm. Renal parenchymal echotexture and thickness are normal. There are no masses. There is a 3 mm calculus at the lower pole with mild lower pole caliectasis. Left Kidney: The left kidney measures 11.7 x 4.8 x 4.4 cm. Renal parenchymal echotexture and thickness are normal. There are no masses. No renal calculi identified. There is mild lower pole caliectasis. US/US renal BI IMPRESSION: 3 mm nonobstructing calculus at the lower pole right kidney. Mild lower pole caliectasis bilaterally. Further evaluation could include CT urography. Electronically signed by: Chandler Ratliff MD 12/18/2024 06:59 AM EDT
--- OUTSIDE RECORDS SUMMARY | 2024-12-17 16:05 | XMS_ITS | Encounter Summary ---
Author Organization [employer] Address [address] [place] [address] Care Team Providers Care Head Field Hockey Coach Name Role Phone Vivien Ohara MD Primary Care Provider [phone] Encounter Details Date Type Department Care Team ([facility] Contact Info) Description 10/27/2024 Orders Only [facility] [address] [place], [place] [phone] Vivien Ohara MD [address] [place] [address] Social History Tobacco Use Types Packs/Day Years [...] Description 02/01/2025 3:00 PM EDT Office Visit [facility] [address] [place] [phone] Vivien Ohara MD [address] [place] [phone] documented as of this encounter Visit Diagnoses Not on filedocumented in this encounter Additional Health Concerns Assessment Noted Time PHQ-9 Depression Total Score: 13 025 12:01 PM EDT documented as of this encounter Care Teams Head Field Hockey Coach Relationship Specialty Start Date End Date Vivien Ohara MD [address] [place] [phone] PCP - General Family Medicine 08/19/23 documented as of this encounter
== END 2024-12-17 16:03 | disposition home or self-care (01) ==
LOC: HO.HMGCX 16:02
PROVIDERS: PCP Family Medicine; Visit Provider Urology
DX: R31.29 Other microscopic hematuria (principal); M54.9 Dorsalgia, unspecified
CPT/HCPCS: 76775

== ENCOUNTER → 2024-12-17 16:04 | Outpatient (BNV) | payer OTHER, SELFPAY | PROVIDERS: PCP Family Medicine; Visit Provider Radiology Diagnostic Radiology | DX: N28.89 Other specified disorders of kidney and ureter (principal) | CPT/HCPCS: 76775 ==

== ENCOUNTER 2025-02-01 13:56 | Outpatient (REF) | payer OTHER, SELFPAY | END 2025-02-01 13:57 | disposition home or self-care (01) | LOC: HO.LAB 13:56 | PROVIDERS: PCP Family Medicine; Visit Provider Urology | DX: R31.29 Other microscopic hematuria (principal); R80.9 Proteinuria, unspecified; N32.81 Overactive bladder; Z79.899 Other long term (current) drug therapy; Z79.82 Long term (current) use of aspirin | CPT/HCPCS: 51798; 81003; 88112; 99212 ==

== ENCOUNTER 2025-02-01 13:56 | Outpatient (AMB) | payer OTHER, SELFPAY ==
--- NOTE | 2025-01-31 15:50 | MHC.OFFVIS ---
Intake Visit Reasons: 10W US follow up Intake Note: Patient is present for a 10w follow up/US Renal US 12/17 Urology Medication:macrobid Antibiotic Allergy:penicilliins, sulfa Blood Thinner:none PVR: 46ml Table Inspector Required: No Allergies penicillin V Allergy (Unknown, Verified 02/01/25 14:15) Anaphylaxis Penicillins Allergy (Unknown, Verified 02/01/25 14:15) Rash Sulfa (Sulfonamide Antibiotics) Allergy (Unknown, Verified 02/01/25 14:15) Anaphylaxis sulfamethoxazole Allergy (Unknown, Verified 02/01/25 14:15) rash trimethoprim Allergy (Unknown, Verified 02/01/25 14:15) rash Medication List - Last Reconciled 02/01/25 by Nikunj Simon MD albuterol sulfate mg inhalation QID PRN amlodipine 5 mg PO DAILY aspirin 81 mg PO QAM cetirizine 10 mg PO DAILY PRN cholecalciferol (vitamin D3) (Vitamin D3) 25 mcg PO DAILY clotrimazole-betamethasone 1-0.05 % 1 appl topical BID PRN cranberry extract 425 mg PO BID dapagliflozin propanediol (Farxiga) 10 mg PO DAILY epinephrine IM fenofibrate 54 mg PO DAILY fluticasone furoate 100 mcg/actuation (Arnuity Ellipta) inhalation DAILY fluticasone propionate 50 mcg/actuation intranasal gabapentin 100 mg PO TID PRN lancets (TRUEplus Lancets) As directed levothyroxine 50 mcg PO DAILY lidocaine 5% 1 patch topical DAILY PRN metformin ER 1,000 mg PO BID omeprazole 40 mg PO DAILY semaglutide (Ozempic) mg subcut tizanidine 2 mg PO TID vibegron (Gemtesa) 75 mg PO DAILY HPI Comments Details: 02/01/25--Lia is a 64-year-old female who has been evaluated for microscopic hematuria. w/u -including CTAP 11/06/2023 and office cystoscopy negative for malignancy. Office cystoscopy consistent with cystitis Last visit 11/23/2024-urine was sent for cytology came back negative on detrol for OAB FU renal US- 12/17/2024 question 3 mm stone, right kidney History of Present Illness - The patient is a 65-year-old female presenting with microscopic hematuria and overactive bladder symptoms. - Microscopic hematuria was evaluated with a CT scan of the abdomen and pelvis on 11/06/23, which was negative for urinary tract masses. - Office cystoscopy was negative for abnormal lesions, with findings consistent with cystitis. - Overactive bladder symptoms include frequent urination at night every two hours. - A renal ultrasound on 12/17/24 suggested a possible 3 mm stone in the right kidney. - Urinalysis showed 3+ blood and leukocytes, with a trace of protein. - The patient has been on Tolterodine for overactive bladder but reports inadequate symptom control. - No history of diuretic use, but the patient is on medication for diabetes. Results - Renal ultrasound on 12/17/24: Possible 3 mm stone in the right kidney. - Urinalysis today 02/01/25: 3+ blood, leukocytes, trace protein. 11/23/24--Lia is a 64-year-old female who has been evaluated for microscopic hematuria. She was seen last in the office April 2024. Office cystoscopy, 05/27/24 was notable for mild inflammatory changes consistent with cystitis. CT abdomen and pelvis without IV contrast 11/06/23, kidneys within normal limits negative for kidney stones or masses.The patient also had overactive bladder symptoms and was prescribed tolterodine. She was counseled on use of cranberry tablets importance of adequate hydration. She is here for follow-up. She states the tolterodine is working well for her bladder control. She complains of vaginal itching. Diabetes comorbidity. I will prescribe Lotrisone cream. I have discussed continued use of cranberry supplements and we will continue tolterodine 4 mg daily. She also complains of back pain. We will check renal ultrasound. Urinalysis today leukocytes 2+ blood 3+ glucose 1+. Urine will be sent for culture and cytology. 05/27/24--FU microscopic hematuria. Urine cytology sent on 04/16/24-- No malignant cells. Here for offie cystoscopy. Cystoscopy findings: Mild inflammatory changes consistent with cystitis, no suspicious bladder lesions visualized. 04/16/24--Lia is here with complaints of urinary incontinence and urinary frequency. She states that she has had UTIs in the past. Urinalysis-microscopic hematuria. I reviewed CT abdomen and pelvis without IV contrast 11/06/23, kidneys within normal limits negative for kidney stones or masses. I have discussed further evaluation with cystoscopy, and urine for cytology. Will trial anticholinergic tolterodine 4 mg daily. I have also recommended cranberry tablets daily. [facility] Medical History Pulmonary fibrosis Asthma DONA (obstructive sleep apnea) Obesity (BMI 30-39.9) Gastritis Social History Patient Tobacco Use Status: Never used Tobacco Review of Systems Const All systems reviewed & are unremarkable except as noted in HPI and below Reports no additional complaints Eyes Reports no additional complaints ENT Reports no additional complaints Card Reports no additional complaints Resp Reports no additional complaints GI Reports no additional complaints Reports as per HPI Musc Reports no additional complaints Skin/Breast Reports system reviewed and no additional complaints, except as documented Neuro Reports no additional complaints Psych Reports no additional complaints Endo Reports no additional complaints Lloyd/Lymph Reports no additional complaints Aller/Immun Reports no additional complaints Results Reviewed Results Reviewed: Date of Service: 12/17/24 EXAMINATION: US KIDNEY BILATERAL HISTORY: R31.29 - Other microscopic hematuria TECHNIQUE: Real-time grayscale ultrasound imaging of the kidneys was performed and images were reviewed. COMPARISON: Correlation is made with a CT of the abdomen without contrast dated 11/06/2023 and a right upper quadrant ultrasound dated 11/06/2023. FINDINGS: Right kidney: The right kidney measures 10.8 x 4.8 x 5.3 cm. Renal parenchymal echotexture and thickness are normal. There are no masses. There is a 3 mm calculus at the lower pole with mild lower pole caliectasis. Left Kidney: The left kidney measures 11.7 x 4.8 x 4.4 cm. Renal parenchymal echotexture and thickness are normal. There are no masses. No renal calculi identified. There is mild lower pole caliectasis. IMPRESSION: 3 mm nonobstructing calculus at the lower pole right kidney. Mild lower pole caliectasis bilaterally. Further evaluation could include CT urography. Collected: 04/16/24 Location: .LAB Received: 04/17/24 Diagnosis Urine: Negative for high-grade urothelial carcinoma. See comment. COMMENT: Cellular specimen consisting of abundant acute inflammatory cells, single urothelial cells with degenerative changes, squamous cells and few red blood cells. Clinical History Urinary tract infection, site not specified Material Received Urine Gross Description Received is 30 cc of cloudy yellow fluid from which a ThinPrep slide is prepared. Date of Service: 11/06/23 CT ABDOMEN AND PELVIS WITHOUT CONTRAST CLINICAL INFORMATION: Right upper quadrant abdominal pain COMPARISON: Abdominal ultrasound performed same day and CT scan from 01/23/2011 TECHNIQUE: Multidetector volumetric imaging was performed from the superior aspect of the liver through the pubic symphysis. Sagittal and coronal reformatted images were obtained on the technologist's workstation. This CT examination was performed using dose optimization techniques as appropriate, variously including the following: *Automated exposure control *Adjustment of mA and/or kV according to patient size (this includes techniques or standardized protocols for targeted exams where dose is matched to indication/reason for exam; i.e. extremities or head) *Use of iterative reconstruction technique DLP: 631 mGy-cm FINDINGS: LUNG BASES: The visualized lung bases are unremarkable. LIVER, GALLBLADDER, AND BILIARY TREE: The liver is normal in size, shape, and attenuation. No focal hepatic lesion or biliary ductal dilatation is present. Liver is decompressed. No calcified stones, wall thickening or inflammatory stranding PANCREAS: Unremarkable. SPLEEN: Calcified granuloma seen within the spleen. ADRENAL GLANDS: Unremarkable. KIDNEYS AND URETERS: The kidneys are normal in size, shape, and attenuation. No hydronephrosis, hydroureter, or calculi seen. No perinephric stranding. BLADDER: Unremarkable. GASTROINTESTINAL TRACT: The small and large bowel are unremarkable. The appendix is unremarkable. Nonspecific mesenteric stranding and small lymph nodes again seen which is unchanged compared to 2011. ABDOMINAL WALL: Small fat-containing umbilical hernia. LYMPH NODES: Normal. VASCULAR: Unremarkable. PELVIC VISCERA: The uterus and adnexa are unremarkable. OSSEOUS STRUCTURES: Posterior facet joint arthropathy is seen in the lumbar spine. IMPRESSION: No acute process Assessment & Plan Assessment & Plan (1) Microscopic hematuria: Code(s): R31.29 - Other microscopic hematuria Category: Medical Plan Plan - Refer the patient to nephrology for further evaluation due to proteinuria and persistent microscopic - Discontinue Tolterodine and initiate Gemtesa for overactive bladder management, with a follow-up phone call in 10 weeks to assess efficacy. - Send urine for cytology for persistent microscopic hematuria. Orders: Referrals Nephrology Referral R31.29 - Other microscopic hematuria, R80.9 - Proteinuria, unspecified Medications: New vibegron (Gemtesa) 75 mg PO DAILY 30 tabs 5RF Discontinued tolterodine ER Discontinued Reason: Doctor's Order 4 mg PO DAILY 90 caps 3RF Patient Instructions: The patient had an opportunity to ask questions regarding treatment plan. The patient expressed understanding and agreement with the above treatment plan. The patient is aware they should contact our office by phone for worsening of their current condition or the appearance of new symptoms. Compliance is encouraged with any medications and followup testing that is ordered. It is a privilege to be allowed the opportunity to participate in the urologic care of your patient. If you have any questions or concerns regarding treatment for the above conditions please do not hesitate to contact me. The office telephone contact is [phone]. This note is constructed in part using voice recognition software. While every effort has been made to ensure accuracy beveller operator errors may have been included. Yours sincerely, Nikunj Simon MD Scribe Plan - Not visible on output: Patient was informed and verbally consented to the use of an ambient scribe for clinic note documentation during this visit. Coding Level of Care Code Est Pt Level 4 (78732) Diagnoses Microscopic hematuria R31.29
--- OUTSIDE RECORDS SUMMARY | 2025-02-01 14:23 | XMS_ITS | Encounter Summary ---
Author Organization [employer] Address [address] [facility] [address] [place] [address] Care Team Providers Care Head Mixer Name Role Phone Vivien Ohara MD Primary Care Provider [phone] Encounter Details Date Type Department Care Team ([facility] Contact Info) Description 10/27/2024 Orders Only [facility] [address] [place], [place] [phone] Vivien Ohara MD [address] [place] [address] Social History Tobacco Use Types Packs/Day Years [...] Description 02/01/2025 3:00 PM EDT Office Visit [facility] [address] [place] [phone] iVvien Ohara MD [address] [place] [phone] documented as of this encounter Visit Diagnoses Not on filedocumented in this encounter Additional Health Concerns Assessment Noted Time PHQ-9 Depression Total Score: 13 025 12:01 PM EDT documented as of this encounter Care Teams Head Mixer Relationship Specialty Start Date End Date Vivien Ohara MD [address] [place] [phone] PCP - General Family Medicine 08/19/23 documented as of this encounter
== END 2025-02-01 14:42 | disposition home or self-care (01) ==
PROVIDERS: PCP Family Medicine; Visit Provider Urology
DX: Z13.9 Encounter for screening, unspecified (principal); R31.29 Other microscopic hematuria
CPT/HCPCS: 99214

== ENCOUNTER 2025-02-15 12:41 | Outpatient (AMB) | payer OTHER, SELFPAY ==
[2025-02-15 13:19] VITALS: BP 147/86; PULSE 83; O2SAT 95; BMI 39.9
--- NOTE | 2025-02-15 13:19 | MHC.OFFVIS ---
Vital Signs 02/15/25 13:19 Height 4 ft 10 in Weight 190 lb 11.198 oz BMI 39.9 BP 147/86 H Blood Pressure Location Lt brachial Position Sitting Pulse 83 Pulse Source Pulse Oximeter Pulse Oximetry (%) 95 Oxygen Delivery Method Room Air Intake Visit Reasons: leyla/asthma Intake Note: pt here for sleep study results and ct scan results, she is heavy in chest most mornings and today heavy right now Parquetry Layer Required: No Allergies penicillin V Allergy (Unknown, Verified 02/15/25 13:46) Anaphylaxis Penicillins Allergy (Unknown, Verified 02/15/25 13:46) Rash Sulfa (Sulfonamide Antibiotics) Allergy (Unknown, Verified 02/15/25 13:46) Anaphylaxis sulfamethoxazole Allergy (Unknown, Verified 02/15/25 13:46) rash trimethoprim Allergy (Unknown, Verified 02/15/25 13:46) rash Medication List - Last Reconciled 02/15/25 by Randolph Awad MD albuterol sulfate mg inhalation QID PRN amlodipine 5 mg PO DAILY aspirin 81 mg PO QAM cetirizine 10 mg PO DAILY PRN cholecalciferol (vitamin D3) (Vitamin D3) 25 mcg PO DAILY clotrimazole-betamethasone 1-0.05 % 1 appl topical BID PRN cranberry extract 425 mg PO BID dapagliflozin propanediol (Farxiga) 10 mg PO DAILY epinephrine IM fenofibrate 54 mg PO DAILY fluticasone furoate 100 mcg/actuation (Arnuity Ellipta) inhalation DAILY fluticasone propionate 50 mcg/actuation intranasal gabapentin 100 mg PO TID PRN lancets (TRUEplus Lancets) As directed levothyroxine 50 mcg PO DAILY lidocaine 5% 1 patch topical DAILY PRN metformin ER 1,000 mg PO BID omeprazole 40 mg PO DAILY semaglutide (Ozempic) mg subcut tizanidine 2 mg PO TID vibegron (Gemtesa) 75 mg PO DAILY Do you need a note to return to daycare/school/sports/work: No HPI HPI leyla/asthma: Details: THIS 65 YEARS OLD FEMALE WHO IS GROSSLY OBESE WITH A ROUND FACE, COMES FOR FOLLOW-UP AFTER HER PFT, SLEEP STUDY AND CT SCAN. HER MAIN COMPLAINT IS THAT EVERY NOW AND THEN SHE FEELS SOME TIGHTNESS IN THE UPPER AIRWAYS. THIS USUALLY HAPPENS IN THE MORNING HOURS. SHE CLEARS HER THROAT SHE IS 5 FOR THE REST OF THE DAY. SHE DOES HAVE ALBUTEROL HFA ON HAND BUT USES ONLY ONCE IN A WHILE. SHE SAY IS THAT SHE IS SLEEPING WELL WITH ABOUT 2 PILLOWS. DENIES DAYTIME SLEEPINESS. [facility] Medical History Pulmonary fibrosis Asthma LEYLA (obstructive sleep apnea) Obesity (BMI 30-39.9) Gastritis Social History Patient Tobacco Use Status: Never used Tobacco Review of Systems Const All systems reviewed & are unremarkable except as noted in HPI and below Eyes Reports no additional complaints ENT Reports nasal congestion (MILD OFF AND ON) Card Reports dyspnea on exertion (MILD) Resp Reports as per HPI and Reports dyspnea on exertion (MILD) GI Reports heartburn (OFF AND ON, WITH CERTAIN FOODS, TREATED WITH OMEPRAZOLE) Reports hematuria (A FEW TIMES AND HAS BEEN CHECKED BY UROLOGY) Musc Reports no additional complaints Skin/Breast Reports system reviewed and no additional complaints, except as documented Neuro Reports no additional complaints Psych Reports no additional complaints Endo Reports no additional complaints Lloyd/Lymph Reports no additional complaints Physical Exam Vital Signs: Last Vital Signs Pulse 83 02/15/25 13:19 BP 147/86 H 02/15/25 13:19 Pulse Ox 95 02/15/25 13:19 Oxygen Delivery Method Room Air 02/15/25 13:19 BMI result Body Mass Index 39.9 PATIENT IS GROSSLY OBESE WITH A ROUND FACE AND SHORT NECK Const General: comfortable, no acute distress, alert and awake Orientation/consciousness: patient oriented x3 HEENT Head: Yes normal to inspection General nose exam: No nasal polyps present and No nasal discharge present Face and sinus: Yes sinuses nontender Mouth: oropharynx abnormals (OROPHARYNX IS CROWDED, MALLAMPATI SCALE 4) Throat: Yes posterior oropharynx normal Eyes General: appearance normal, both eyes and all related structures Neck Neck: Yes normal visual inspection, Yes no lymphadenopathy, Yes trachea midline, Yes no JVD and Yes other (NECK CIRCUMFERENCE 17 IN) Thyroid: Thyroid normal Chest Chest palpation & inspection: normal inspection of the chest, normal palpation of entire chest wall and no tenderness Resp Effort & Inspection: normal respiratory effort Auscultation: clear to auscultation bilaterally, no crackles and no wheezes Cardio Palpation: normal PMI Rate: regular rate Rhythm: regular rhythm Heart sounds: no gallops and no murmurs Peripheral pulses: Peripheral pulses 2+ throughout GI Palpation (GI): Soft to palpation, nontender, No hepatosplenomegaly present, no masses and Other GI palpation findings present (ABDOMEN IS OBESE AND PROTUBERANT) Auscultation: normal bowel sounds Back/Spine/Pelvis Thoracic/Lumbar Spine: thoracic and lumbar spine normal to inspection Skin General skin exam: no rashes or lesions noted Neuro General: patient oriented x3 and no focal motor deficits Cranial nerves: Yes CN's II-XII intact bilaterally Extrem General: Yes normal to inspection, Yes no clubbing, cyanosis or edema and Yes no calf tenderness Psych Appearance: grossly normal and well kempt Speech and movement: Normal speech and movement present Results Reviewed Results Reviewed: Pulmonary function test NORMAL, AND DOES NOT SHOW ANY SIGN OF RESTRICTIVE OR OBSTRUCTIVE AIRWAY DISORDER AND ALSO NO RESPONSE TO BRONCHODILATOR THERAPY. SHE COULD STILL HAVE MILD INTERMITTENT BRONCHIAL ASTHMA BUT DOES NOT HAVE ANY CHRONIC DEFECT. SLEEP STUDY ON 12/16/2024. SHOWS MILD LEYLA WITH TOTAL SLEEP TIME AHI 13. MOST OF THE SLEEP WAS IN PROPPED UP POSITION ( 2 PILLOWS) THERE IS ALSO MILD NOCTURNAL HYPOXEMIA WITH O2 SAT BELOW 88% FOR [address] SCAN OF THE CHEST SHOWS VERY MINIMAL RIGHT COSTOPHRENIC SULCUS SCARRING/ATELECTASIS AND ALSO VERY NONSPECIFIC VASCULAR CONGESTION IN THE BASES Assessment & Plan Assessment & Plan (1) LEYLA (obstructive sleep apnea): Comment: PATIENT WAS INITIALLY DIAGNOSED TO HAVE SLEEP APNEA IN 2022, BUT WAS NOT ABLE TO USE THE CPAP SO IT WAS TAKEN AWAY. THE CURRENT STUDY CONFIRMS SLEEP APNEA BUT IT IS MILD WITH TOTAL SLEEP TIME AHI 13. DISCUSSED WITH THE PATIENT VARIOUS TREATMENT OPTIONS. SHE IS NOT KEEN TO USE THE CPAP. I TOLD HER THAT IF SHE COULD LOSE ABOUT 20 LB OF WEIGHT HER SLEEP APNEA WILL BE DECREASED BY MORE THAN 50%. DISCUSSED VARIOUS MEANS TO LOSE WEIGHT, SHE UNDERSTANDS WELL. SHE WANTS TO TRY HER BEST FOR TREATMENT WITH WEIGHT REDUCTION. Code(s): G47.33 - Obstructive sleep apnea (adult) (pediatric) Category: Medical Plan: PATIENT WILL TRY TO DO THE WEIGHT REDUCTION WITH DIETING AND WALKING UP TO 2 [place] DAILY. (2) Asthma: Comment: PULMONARY FUNCTION TEST IS ESSENTIALLY NORMAL SHE HAS INTERMITTENT BOUTS OF DYSPNEA WITH SOME COUGH. CLINICALLY DIAGNOSED TO HAVE ASTHMA, AND IS BEING TREATED WITH ARNUITY AND ALBUTEROL INHALER. Code(s): J45.909 - Unspecified asthma, uncomplicated Category: Medical Plan: EXPLAINED ABOUT THE PULMONARY FUNCTION TEST THAT IT IS NORMAL NO NEED TO USE ARNUITY MAY USE ALBUTEROL 2 PUFFS Q 4-6 HOURS P.R.N. (3) Obesity (BMI 30-39.9): Comment: PATIENT HAS BEEN GROSSLY OBESE. CURRENT BMI 39.9. Code(s): E66.9 - Obesity, unspecified Category: Medical Plan: WEIGHT REDUCTION IS STRESSED, IMPORTANCE OF FOLLOWING THE DIET AND ALSO WALKING UP TO 2 MILES DAILY IS EXPLAINED. PATIENT WILL BE SEEN IN 4 MONTHS AND HOPING THAT SHE WOULD HAVE REDUCED SIGNIFICANT AMOUNT OF WEIGHT. Coding Level of Care Code Est Pt Level 3 (92149) Diagnoses LEYLA (obstructive sleep apnea) G47.33 Asthma J45.909 Obesity (BMI 30-39.9) E66.9
== END 2025-02-15 13:49 | disposition home or self-care (01) ==
LOC: HO.HPS 12:42
PROVIDERS: PCP Family Medicine; Visit Provider Internal Medicine
DX: G47.33 Obstructive sleep apnea (adult) (pediatric) (principal); J45.909 Unspecified asthma, uncomplicated; E66.9 Obesity, unspecified
CPT/HCPCS: 99213

== ENCOUNTER → 2025-02-15 12:41 | Outpatient (BNVA) | payer OTHER, SELFPAY | PROVIDERS: PCP Family Medicine; Visit Provider Internal Medicine | DX: G47.33 Obstructive sleep apnea (adult) (pediatric) (principal); J45.909 Unspecified asthma, uncomplicated; E66.9 Obesity, unspecified | CPT/HCPCS: 99212 ==

== ENCOUNTER 2025-02-26 14:36 | Outpatient (AMB) | payer OTHER, SELFPAY ==
--- OUTSIDE RECORDS SUMMARY | 2025-02-26 14:39 | XMS_ITS | Encounter Summary ---
Author Organization [employer] Address [address] [facility] 7t [place] [address] Care Team Providers Care Vp Client Services Name Role Phone Vivien Ohara MD Primary Care Provider [phone] Encounter Details Date Type Department Care Team ([facility] Contact Info) Description 10/27/2024 Orders Only [facility] [address] [place], [place] [phone] Vivien Ohara MD [address] [place] [address] Social History Tobacco Use Types Packs/Day Years [...] documented as of this encounter Care Teams Vp Client Services Relationship Specialty Start Date End Date Vivien Ohara MD [address] [place] [address] PCP - General Family Medicine 08/19/23 documented as of this encounter
--- NOTE | 2025-02-26 15:25 | HO.NEPHOV_ITS ---
Vital Signs 02/26/25 15:29 Height 4 ft 10 in Weight 190 lb 8 oz BMI 39.8 BP 132/80 Blood Pressure Location Rt brachial Position Sitting Pulse 75 Pulse Source Pulse Oximeter Pulse Oximetry (%) 97 Oxygen Delivery Method Room Air Intake Visit Reasons: INP:Proteinuria, microscopic hematuria/Conf Ramp Manager Required: No Accompanied by: Daughter Allergies penicillin V Allergy (Unknown, Verified 02/26/25 15:29) Anaphylaxis Penicillins Allergy (Unknown, Verified 02/26/25 15:29) Rash Sulfa (Sulfonamide Antibiotics) Allergy (Unknown, Verified 02/26/25 15:29) Anaphylaxis sulfamethoxazole Allergy (Unknown, Verified 02/26/25 15:29) rash trimethoprim Allergy (Unknown, Verified 02/26/25 15:) rash HPI Comments Details: I had the privilege of seeing Ila in consultation for proteinuria sand history of microscopic hematuria. She is 65 years of age history of renal ca lculi as well as overactive bladder. He is a diabetic and hypertensive on medications. She is on Farxiga and Ozempic. She is seen and is closely followed by Urology. She has history of sensorineural deafness bilaterally. She has family history of sensorineural deafness.She is not on any EFREM inhibitor or ARB. She denies any coronary artery disease, congestive heart failure, carotid stenosis, CVA, peripheral arterial disease, pedal edema, skin rashes, photosensitivity, recurrent sore throat, history of hepatitis, history of excessive nonsteroidal anti-inflammatory medication intake, macroscopic hematuria. Her renal functions are normal. [facility] Medical History Pulmonary fibrosis Asthma DONA (obstructive sleep apnea) Obesity (BMI 30-39.9) Gastritis Social History Patient Tobacco Use Status: Never used Tobacco Review of Systems Const All systems reviewed & are unremarkable except as noted in HPI and below Physical Exam Vital Signs: Last Vital Signs Pulse 75 02/26/25 15:29 BP 132/80 02/26/25 15:29 Pulse Ox 97 02/26/25 15:29 Oxygen Delivery Method Room Air 02/26/25 15: BMI result Body Mass Index 39.8 Const General: comfortable and no acute distress Orientation/consciousness: patient oriented x3 HEENT Head: Yes normocephalic Mouth: Normal oral and palatal mucosa present Eyes EOM: EOMs intact bilaterally Neck Neck: Yes supple Resp Auscultation: clear to auscultation bilaterally Cardio Jugular venous distension: no JVD Rate: regular rate GI Palpation (GI): Soft to palpation Auscultation: normal bowel sounds General: Yes no CVA tenderness Back/Spine/Pelvis Back: no CVA tenderness Skin General skin exam: no rashes or lesions noted Neuro General: patient oriented x3 and moves all extremities Extrem General: Yes no pedal edema Results Reviewed Nephrology Results: Renal US 12/17/24 Assessment & Plan Assessment & Plan (1) Microscopic hematuria: Code(s): R31.29 - Other microscopic hematuria Category: Medical (2) Proteinuria: Code(s): R80.9 - Proteinuria, unspecified Category: Medical Qualifiers: Proteinuria type: other Qualified Code(s): R80.8 - Other proteinuria (3) Hypertension: Code(s): I10 - Essential (primary) hypertension Category: Medical Qualifiers: Hypertension type: primary hypertension Qualified Code(s): I10 - Essential (primary) hypertension (4) Renal calculi: Code(s): N20.0 - Calculus of kidney Category: Medical Plan Lia has hypertension, microscopic hematuria and proteinuria. She is known to have renal calculi. She has sensorineural deafness. She may be having IgA nephropathy what Alport syndrome is in her differential. She is not on any EFREM inhibitor, ARB but on SGLT2 inhibitor. I have ordered extensive workup including imaging studies. Based on the data she may need renal biopsy. Her renal functions are normal. She should maintain good hydration. I did not make any medication changes but intend to initiate her on EFREM inhibitor and wean her off calcium channel maurice, if possible. She needs to lose weight. She may need a genetic testing to rule out Alport syndrome. All her and her daughter's questions were answered and follow-up was given Orders: Orders Complete Blood Count Auto Diff 02/26/25 I10 - Essential (primary) hypertension, R31.29 - Other microscopic hematuria, R80.9 - Proteinuria, unspecified Electrolytes 02/26/25 I10 - Essential (primary) hypertension, R31.29 - Other microscopic hematuria, R80.9 - Proteinuria, unspecified Blood Urea Nitrogen 02/26/25 I10 - Essential (primary) hypertension, R31.29 - Other microscopic hematuria, R80.9 - Proteinuria, unspecified Calcium 02/26/25 I10 - Essential (primary) hypertension, R31.29 - Other microscopic hematuria, R80.9 - Proteinuria, unspecified Myeloperoxidase Antibody 02/26/25 I10 - Essential (primary) hypertension, R31.29 - Other microscopic hematuria, R80.9 - Proteinuria, unspecified Proteinase 3 PR3 Antibodies 02/26/25 I10 - Essential (primary) hypertension, R31.29 - Other microscopic hematuria, R80.9 - Proteinuria, unspecified Anti Glomerular Basement Memb 02/26/25 I10 - Essential (primary) hypertension, R31.29 - Other microscopic hematuria, R80.9 - Proteinuria, unspecified Phospholipase A2 Receptor Pnl 02/26/25 I10 - Essential (primary) hypertension, R31.29 - Other microscopic hematuria, R80.9 - Proteinuria, unspecified US renal BI 3 Weeks I10 - Essential (primary) hypertension, R31.29 - Other microscopic hematuria, R80.9 - Proteinuria, unspecified Creatinine 02/26/25 I10 - Essential (primary) hypertension, R31.29 - Other microscopic hematuria, R80.9 - Proteinuria, unspecified UA and rflx microscopic 02/26/25 I10 - Essential (primary) hypertension, R31.29 - Other microscopic hematuria, R80.9 - Proteinuria, unspecified Protein Creatinine Ratio, Ur 02/26/25 I10 - Essential (primary) hypertension, R31.29 - Other microscopic hematuria, R80.9 - Proteinuria, unspecified Hepatitis C Antibody Reflex 02/26/25 I10 - Essential (primary) hypertension, R31.29 - Other microscopic hematuria, R80.9 - Proteinuria, unspecified Hepatitis B Core Antibody 02/26/25 I10 - Essential (primary) hypertension, R31.29 - Other microscopic hematuria, R80.9 - Proteinuria, unspecified Hepatitis B Surface Antigen 02/26/25 I10 - Essential (primary) hypertension, R31.29 - Other microscopic hematuria, R80.9 - Proteinuria, unspecified Anti DNA DS Antibody 02/26/25 I10 - Essential (primary) hypertension, R31.29 - Other microscopic hematuria, R80.9 - Proteinuria, unspecified Complement C3 02/26/25 I10 - Essential (primary) hypertension, R31.29 - Other microscopic hematuria, R80.9 - Proteinuria, unspecified Complement C4 02/26/25 I10 - Essential (primary) hypertension, R31.29 - Other microscopic hematuria, R80.9 - Proteinuria, unspecified Immunofixation Pnl, Serum 02/26/25 I10 - Essential (primary) hypertension, R31.29 - Other microscopic hematuria, R80.9 - Proteinuria, unspecified US renal doppler 3 Weeks I10 - Essential (primary) hypertension, R31.29 - Other microscopic hematuria, R80.9 - Proteinuria, unspecified Coding Level of Care Code New Pt Level 4 (28265) Diagnoses Microscopic hematuria R31.29 Other proteinuria R80.8 Proteinuria type: other Primary hypertension I10 Hypertension type: primary hypertension Renal calculi N20.0
[2025-02-26 15:29] VITALS: BP 132/80; PULSE 75; O2SAT 97; BMI 39.8
== END 2025-02-26 16:07 | disposition home or self-care (01) ==
LOC: HO.HKA 14:36
PROVIDERS: PCP Family Medicine; Referring Provider Urology; Visit Provider Internal Medicine Nephrology
DX: R31.29 Other microscopic hematuria (principal); R80.8 Other proteinuria; I10 Essential (primary) hypertension; N20.0 Calculus of kidney
CPT/HCPCS: 99204

== ENCOUNTER → 2025-02-26 14:36 | Outpatient (BNVA) | payer OTHER, SELFPAY | PROVIDERS: PCP Family Medicine; Referring Provider Urology; Visit Provider Internal Medicine Nephrology | DX: I10 Essential (primary) hypertension (principal); N20.0 Calculus of kidney; R80.8 Other proteinuria; R31.29 Other microscopic hematuria; E66.9 Obesity, unspecified | CPT/HCPCS: 99202 ==

== ENCOUNTER 2025-04-08 13:07 | Outpatient (REF) | payer OTHER, SELFPAY ==
[2025-04-08 16:10] LABS: MANUAL DIFF FLAG NO
[2025-04-08 16:30] LABS: Anion Gap 11 (12-20); Blood Urea Nitrogen 16 mg/dL (9-16); Calcium 8.9 mg/dL (8.4-10.2); Carbon Dioxide 25 mmol/L (22-29); Chloride 106 mmol/L (96-108); Estimated Glomerular Filt Rate > 60; Potassium 3.5 mmol/L (3.3-5.1); Sodium 138 mmol/L (135-145)
[2025-04-08 16:34] LABS: Hematocrit 37.2 % (37.0-47.0); Hemoglobin 12.7 g/dl (12.0-16.0); Imm Gran Abs Auto 0.04 X10*3/uL (0.00-0.03); Imm Gran Pct Auto 0.4 % (0.0-0.4); Lymphocytes Absolute Auto 2.7 X10*3/uL (1.2-4.9); Mean Corpuscular HGB Conc 34.1 g/dl (31.0-35.0); Mean Corpuscular Hemoglobin 28.8 pg (27.0-33.0); Mean Corpuscular Volume 84.4 fL (80.0-98.0); NRBC Abs Auto 0.000 X10*3/uL (0.0-0.012); NRBC Pct Auto 0.0 /100WBC (0.0-0.2); Platelet Count 253 X10*3/uL (160-400); Red Blood Count 4.41 X10*6/uL (4.20-5.50); White Blood Count 9.7 X10*3/uL (4.8-10.8)
[2025-04-08 16:35] LABS: Appearance Urine Cloudy; Glucose Urine UA Negative (Negative); PH 5.5 (5.0-9.0); Specific Gravity - Urine 1.020 (1.005-1.025); UMIC TRIGGER UA YES
--- OUTSIDE RECORDS SUMMARY | 2025-04-08 17:09 | XMS_ITS | Encounter Summary ---
Author Organization [employer] Address [address] [place] [address] Care Team Providers Care [employer] Reading Teacher Name Role Phone Lakeisha Yadav NP Primary Care Provider [phone] Vivien Ohara MD Primary Care Provider [phone] Reason for Visit * Reason Comments Med Refill Encounter Details Date Type Department Care Team ([facility] st Contact Info) Description 08/17/2023 Refill [facility] [address] [place] [address] Name, MD Dylon [address] [place] [address] Mild intermittent asthma with acute exacerbation Social [...] Care Team (Late st Contact Info) Description 05/04/2025 3:30 PM EDT Office Visit [facility] [address] [place] [phone] Vivien Ohara MD [address] [place] [phone] documented as of this encounter Visit Diagnoses Diagnosis Mild intermittent asthma with acute exacerbation documented in this encounter Additional Health Concerns Assessment Noted Time PHQ-9 Depression Total Score: 0 03/14/20 23 1:40 PM EDT documented as of this encounter Care Teams [employer] Reading Teacher Relationship Specialty Start Date End Date Lakeisha Yadav NP [address] [place] [address] PCP - General Family Medicine 05/03/23 08/18/23 Vivien Ohara MD [address] [place] [address] PCP - General Family Medicine 08/19/23 documented as of this encounter
--- OUTSIDE RECORDS SUMMARY | 2025-04-08 17:09 | XMS_ITS | Encounter Summary ---
Author Organization [employer] Address [address] [facility] 7t [place] [address] Care Team Providers Care Pharmacy Technician Per Diem Name Role Phone Vivien Ohara MD Primary Care Provider [phone] Encounter Details Date Type Department Care Team ([facility] Contact Info) Description 04/08/2025 Orders Only GENERIC EXTERNAL DATA DEPARTMENT Provider, [...] housing situation today? I have fallon bello 02/01/[address] you li ve. Do you have problems with any of the following? None of the above 02/01/2025 Food Insecurity Answer Date Recorded Within the past 12 months, y ou worried that your food would run out before you got money to buy more: Never True 02/01/2025 Within the past 12 months,th e food you bought just didn't last and you didn't have enough money to get more: Never True 01/2025 Transportation Answer Date Recorded In the past 12 months, has l ack of transportation kept you from medical appts, meetings, work or from getting things needed for daily living? No 02/01/2025 Utilities Answer Date Recorded In the past 12 months, has t he electric, gas, oil or water company threatened to shut off services in your home? No 02/01/2025 Depression Answer Date Recorded Patient Health Questionnaire-2 [...] Description 05/04/2025 3:30 PM EDT Office Visit [facility] [address] [place], [place] [phone] Vivien Ohara MD [address] [place] [address] documented as of this encounter Procedures Procedure Name Priority Date/Time Associated Diagnosis Comments CREATININE, SERUM Routine 04/08/2025 1:1 5 PM EDT CBC WITH AUTO DIFFERENTIAL Routine 04/08/2025 1:15 PM EDT URINALYSIS, COMPLETE Routine 04/08/2025 1:15 PM EDT UREA NITROGEN (BUN) Routine 04/08/2025 1 :15 PM EDT CALCIUM Routine 04/08/2025 1:15 PM EDT ELECTROLYTE PANEL Routine 04/08/2025 1:1 5 PM EDT documented in this encounter Results * (ABNORMAL) Urinalysis Complete (04/08/2025 1:15 PM EDT) Color Urine Yellow [facility] Appearance Urine Cloudy [facility] PH 5.5 5.0 - 9.0 [facility] Glucose Urine UA Negative Negative mg/dL [facility] Urine Blood Small (1+)(A) Negative [facility] Specific [place] - Urine 1.020 1.005 - 1.025 [facility] Urine Protein Trace Neg-Trace mg/dL [facility] Urine Ketones Trace Negative mg/dL [facility] Nitrite Urine Negative Negative [facility] Leukocyte Esterase Urine Large (3+)(A) Negative [facility] RBC Urine 0-2 0 - 2 /HPF [facility] Urine WBC >50(A) 0 - 5 /HPF [facility] Urine Squamous Epithelial Cell 11-20 0 - 2 /HPF [facility] Urine Bacteria 3+ None Seen [facility] Hyaline Casts, Urine 0-2 0 - 2 /LPF [facility] 04/08/2025 1:15 PM EDT 04/08/2025 4:03 PM EDT us Generic External Data Provider LAB URINE ORDERAB LES Final Result [facility] [address] [place] [phone] * (ABNORMAL) CBC auto differential (04/08/2025 1:15 PM EDT) White Blood Count 9.7 4.8 - 10.8 X10*3/uL [facility] Red Blood Count 4.41 4.20 - 5.50 X10*6/uL [facility] Hemoglobin 12.7 12.0 - 16.0 g/dl [facility] Hematocrit 37.2 37.0 - 47.0 % [facility] Mean Corpuscular Volume 84.4 80.0 - 98.0 fL [facility] Mean Corpuscular Hemoglobin 28.8 27.0 - 33.0 pg [facility] Mean Corpuscular HGB Conc 34.1 31.0 - 35.0 g/dl [facility] Red Cell Distribution Width 13.7 11.0 - 16.0 % [facility] Platelet Count 253 160 - 400 X10*3/uL [facility] Mean Platelet Volume 10.2 9.4 - 12.3 fL [facility] Neutrophils Percent Auto 59.6 45 - 73 % [facility] Imm Gran Pct Auto 0.4 0.0 - 0.4 % [facility] Lymphocytes Percent Auto 27.9 20 - 40 % [facility] Monocytes Percent Auto 8.1 2 - 11 % [facility] Eosinophils Percent Auto 3.6 0 - 4 % [facility] Basophils Percent Auto 0.4 0 - 2 % [facility] NRBC Pct Auto 0.0 0.0 - 0.2 /100WBC [facility] Neutrophils Absolute Auto 5.8 2.0 - 8.3 x10*3/uL [facility] Imm Gran Abs Auto 0.04(H) 0.00 - 0.03 X10*3/uL [facility] Lymphocytes Absolute Auto 2.7 1.2 - 4.9 X10*3/uL [facility] Monocytes Absolute Auto 0.8 0.1 - 1.2 X10*3/uL [facility] Eosinophils Absolute Auto 0.4 0.0 - 0.4 X10*3/uL [facility] Basophils Absolute Auto 0.0 0.0 - 0.2 X10*3/uL [facility] NRBC Abs Auto 0.000 0.0 - 0.012 X10*3/uL [facility] 04/08/2025 1:15 PM EDT 04/08/2025 4:03 PM EDT us Generic External Data Provider LAB BLOOD ORDERAB LES Final Result [facility] [address] [place] [phone] * Calcium (04/08/2025 1:15 PM EDT) Calcium 8.9 8.4 - 10.2 mg/dL [facility] 04/08/2025 1:15 PM EDT 04/08/2025 4:03 PM EDT us Generic External Data Provider LAB BLOOD ORDERAB LES Final Result Performing Organization Address [facility] Co de Phone Number [facility] [address] [place] [phone] * Creatinine, Serum (04/08/2025 1:15 PM EDT) Creatinine, Serum 0.79 0.5 - 1.4 mg/dL [facility] Estimated Glomerular Filt Rate >60 [facility] Comment:Chronic Kidney Disea se: Estimated GFR < 60 mL/min/[id number] Kidney Disease: Estimated GFR < 15 mL/min/1.73m2 04/08/2025 1:15 PM EDT 04/08/2025 4:03 PM EDT Generic External Data Provider LAB BLOOD ORDERAB LES Final Result Performing Organization Address [facility] de Phone Number [facility] [address] [place] [phone] * BUN (Blood Urea Nitrogen) (04/08/2025 1:15 PM EDT) Urea Nitrogen (BUN) 16 9 - 16 mg/dL [facility] 04/08/2025 1:15 PM EDT 04/08/2025 4:03 PM EDT Generic External Data Provider LAB BLOOD ORDERAB LES Final Result Performing Organization Address [facility] Co de Phone Number [facility] [address] [place] [phone] * (ABNORMAL) Electrolyte Panel (04/08/2025 1:15 PM EDT) Sodium 138 135 - 145 mmol/L [facility] Potassium 3.5 3.3 - 5.1 mmol/L [facility] Chloride 106 96 - 108 mmol/L [facility] Carbon Dioxide 25 22 - 29 mmol/L [facility] Anion Gap 11(L) 12 - 20 [facility] 04/08/2025 1:15 PM EDT 04/08/2025 4:03 PM EDT us Generic External Data Provider LAB BLOOD ORDERAB LES Final Result [facility] [address] [place] [phone] documented in this encounter Visit Diagnoses Not on filedocumented in this encounter Additional Health Concerns Assessment Noted Time PHQ-9 Depression Total Score: 13 025 12:01 PM EDT documented as of this encounter Care Teams Pharmacy Technician Per Diem Relationship Specialty Start Date End Date Vivien Ohara MD [address] [place] [address] PCP - General Family Medicine 08/19/23 documented as of this encounter
--- OUTSIDE RECORDS SUMMARY | 2025-04-08 17:09 | XMS_ITS | Encounter Summary ---
Author Organization [employer] Address [address] [facility] 7t [place] [address] Care Team Providers Care Car Ferry Captain Name Role Phone Kandi VanessaP Primary Care Provider Lakeisha Barclay NP Primary Care Provider [phone] Vivien Ohara MD Primary Care Provider [phone] Reason for Visit * Reason Onset Date Comments Results 08/03/2022 Encounter Details Date Type Department Care Team ([facility] st Contact Info) Description 08/03/2022 Telephone [facility] [address] [place] [address] Kandi Vanessa FNP Results Social History Tobacco Use Types Packs/Day [...] Description 05/04/2025 3:30 PM EDT Office Visit [facility] [address] [place] [phone] Vivien Ohara MD [address] [place] [address] documented as of this encounter Visit Diagnoses Not on filedocumented in this encounter Care Teams Car Ferry Captain Relationship Specialty Start Date End Date Kandi Vanessa FNP PCP - General Family Medicine 03/07/22 05/02/23 Lakeisha Yadav NP [address] [place] [phone] PCP - General Family Medicine 05/03/23 08/18/23 Vivien Ohara MD [address] [place] [phone] PCP - General Family Medicine 08/19/23 documented as of this encounter
--- OUTSIDE RECORDS SUMMARY | 2025-04-08 17:09 | XMS_ITS | Encounter Summary ---
Author Organization [employer] Address [address] 7[address] [place] [address] Care Team Providers Care Abrasive Mixer Helper Name Role Phone Vivien Ohara MD Primary Care Provider [phone] Reason for Visit * Reason Comments Med Refill Encounter Details Date Type Department Care Team ([facility] st Contact Info) Description 11/06/2023 Refill [facility] [address] [place] [address] Amanda Moreno MD [address] [place] [address] Social History Tobacco Use Types Packs/Day Years [...] Description 05/04/2025 3:30 PM EDT Office Visit [facility] [address] [place] [phone] Vivien Ohara MD [address] [place] [phone] documented as of this encounter Visit Diagnoses Not on filedocumented in this encounter Additional Health Concerns Assessment Noted Time PHQ-9 Depression Total Score: 0 03/14/20 23 1:40 PM EDT documented as of this encounter Care Teams Abrasive Mixer Helper Relationship Specialty Start Date End Date Vivien Ohara MD [address] [place] [phone] PCP - General Family Medicine 08/19/23 documented as of this encounter
--- OUTSIDE RECORDS SUMMARY | 2025-04-08 17:09 | XMS_ITS | Encounter Summary ---
Author Organization [employer] Address [address] [facility] 7t [place] [address] Care Team Providers Care Needle Loom Weaver Name Role Phone Vivien Ohara MD Primary Care Provider [phone] Encounter Details Date Type Department Care Team ([facility] Contact Info) Description 10/27/2024 Orders Only [facility] [address] [place], [place] [phone] Vivien Ohara MD [address] [place] [address] Social History Tobacco Use Types Packs/Day Years [...] Description 05/04/2025 3:30 PM EDT Office Visit [facility] [address] [place] [phone] Vivien Ohara MD [address] [place] [address] documented as of this encounter Visit Diagnoses Not on filedocumented in this encounter Additional Health Concerns Assessment Noted Time PHQ-9 Depression Total Score: 13 025 12:01 PM EDT documented as of this encounter Care Teams Needle Loom Weaver Relationship Specialty Start Date End Date Vivien Ohara MD [address] [place] [phone] PCP - General Family Medicine 08/19/23 documented as of this encounter
--- OUTSIDE RECORDS SUMMARY | 2025-04-08 17:10 | XMS_ITS | Clinical Summary ---
Author Organization [employer] Address [address] [facility] [address] [place] [address] Care Team Providers Care Architectural Administrative Assistant Name Role Phone Vivien Ohara MD Primary Care Provider [phone] Allergies Active Allergy Reactions Criticality Noted Date [...] 023 Active Blood Glucose Monitoring Suppl (FreeStyle Sheffield Lite) w/Device kit TEST BLOOD SUGAR THREE [...] TIMES DAILY NEEDED 90 mL 3 Active lidocaine (Lidoderm) 5 % patchIndications :Primary osteoarthritis involving multiple joints Apply 1 patch topically Once per day. Remove & discard patch within 12 hours or as directed by MD. 30 patch 11 Active EPINEPHrine (Epipen) 0.3 MG/0.3ML injection syringe INJECT INTRAMUSCULARLY DIRECTED ON PACKAGE AND GO TO EMERGENCY ROOM OR CALL 911. 2 each 1 Active albuterol (Ventolin HFA) 108 (90 Base) MCG/ACT inhalerIndicatio ns:Mild intermittent asthma with acute exacerbation INHALE 2 PUFFS BY MOUTH EVERY 4 TO 6 HOURS NEEDED 18 g 1 Active tolterodine LA (Detrol LA) 4 MG 24 hr capsule Take 4 mg by mouth Once per day. Active TRUEplus Lancets 33G miscIndications: Type 2 diabetes mellitus without complication, without long-term current use of insulin ([facility]) TEST BLOOD SUGAR THREE TIMES DAILY DIRECTED 100 each 5 Active FREESTYLE LITE test stripIndications :Type 2 diabetes mellitus without complication, without long-term current use of insulin ([facility]) TEST BLOOD SUGAR THREE TIMES DAILY DIRECTED 100 strip Active gabapentin (Neurontin) 100 MG capsuleIndicatio ns:Fibromyalgia TAKE 2 CAPSULES BY MOUTH EVERY 8 HOURS 180 capsule Active amLODIPine (Norvasc) 5 MG tablet Take 1 tablet (5 mg) by mouth Once per day. 90 tablet 025 2025 Active cholecalciferol (Vitamin D-3) 25 MCG (1000 UT) capsule Take 1 capsule (25 mcg) by mouth Once per day. 90 capsule Active cetirizine (ZyrTEC) 10 MG tabletIndication s:Seasonal [...] MOUTH AFTER USING 30 each 3 Active valsartan (Diovan) 160 MG tabletIndication s:Hypertension, unspecified type TAKE 1 TABLET BY MOUTH EVERY DAY 90 tablet 3 Active Farxiga 10 MG TAKE 1 TABLET BY MOUTH EVERY DAY 90 tablet 3 Active Semaglutide,0.25 or 0.5MG/DOS, (Ozempic, 0.25 or 0.5 MG/DOSE,) 2 MG/3ML solution pen-injectorIndi cations:Type 2 diabetes mellitus without complication, without long-term current use of insulin ([facility]) Inject 0.5 mg under the skin 1 (one) time per week. 3 mL 11 Active metFORMIN XR (Glucophage-XR) 500 MG 24 hr tablet Take 1 tablet (500 mg) by mouth 2 times daily. 180 tablet 3 Active omeprazole (PriLOSEC) [address] capsule TAKE 1 CAPSULE BY MOUTH EVERY DAY 90 capsule 1 Active Blood Glucose Monitoring Suppl (EstorianStyle Sheffield Lite) w/Device kitIndications:T ype 2 diabetes mellitus without complication, without long-term current use of insulin ([facility]) Use to test blood sugar 3 times daily 1 kit 025 Active Blood Pressure kitIndications:H ypertension, unspecified type 1 each Once per day. Use to check blood pressure once daily 1 kit Active Continuous Glucose Wireline Field Operator (FreeStyle Leland 3 Petroleum) deviceIndication s:Type 2 diabetes mellitus without complication, without long-term current use of insulin ([facility]) 1 each Once per day. Use as directed for CGM 1 each Active Continuous Glucose Sensor (FreeStyle Leland 3 Plus Sensor) miscIndications: Type 2 diabetes mellitus without complication, without long-term current use of insulin (CMS/HCC) 1 each every 15 days. Apply 1 every 15 days as directed for CGM 2 each Active glucose blood (FreeStyle Precision Ran Test) test strip Use to test blood sugar 1 times daily in case of CGM failure or extremes of BG 100 each 025 2025 Active Alcohol Swabs (Alcohol Prep) 70 % pads USE EVERY DAY 100 each Active levothyroxine (Synthroid, Levoxyl) 50 MCG tabletIndication s:Multinodular goiter TAKE 1 TABLET BY MOUTH EVERY DAY 90 tablet 1 025 Active Aspirin Low Dose 81 MG EC tabletIndication s:Primary hypertension TAKE 1 TABLET BY MOUTH EVERY DAY IN THE MORNING 90 tablet 1 025 Active fenofibrate (Tricor) 54 MG tablet TAKE 1 TABLET BY MOUTH EVERY DAY IN THE MORNING 90 tablet 1 025 Active levothyroxine (Synthroid, Levoxyl) 50 MCG tabletIndication s:Multinodular goiter TAKE 1 TABLET BY MOUTH EVERY DAY 90 tablet 1 025 2024 Discontinued fenofibrate (Tricor) 54 MG tablet TAKE 1 TABLET BY MOUTH ONCE DAILY IN THE MORNING 90 tablet 1 025 2024 Discontinued aspirin (Aspirin Low Dose) 81 MG EC tabletIndication s:Primary hypertension TAKE 1 TABLET BY MOUTH ONCE DAILY IN THE MORNING 90 tablet 1 025 2024 Discontinued Active Problems Problem Noted Date Diagnosed Date Kidney stone 02/14/2025 Assessment & Plan (02/14/2025 2:49 PM EDT): - Following with [facility], last seen 02/01/2025 - Most recent renal ultrasound in November 2024 showed 3 mm nonobstructive right kidney stone - Continue adequate fluid intake Osteopenia 01/16/2024 Assessment & Plan (01/16/2024 11:05 AM EDT): -DEXA on 01/07/24 -Osteopenia based on the lowest T-score value of -1.7 in the femoral neck applying World Health Organization criteria. -10-YEAR FRACTURE RISK PREDICTION, FRAX: Major osteoporotic fracture 9.2%. Hip fracture 0.5%. -encouraged to have adequate vitamin intake Vitamin D deficiency 01/16/2024 Assessment & Plan (02/01/2025 1:06 PM EDT): - had been on Vitamin D supplementation in the past - will recheck labs Assessment & Plan (01/16/2024 11:16 AM EDT): - had been on Vitamin D supplementation in the past - will recheck labs Mixed stress and urge urinary incontinence 01/15 Assessment & Plan (02/14/2025 2:48 PM EDT): - Following up with neurologist at [facility], appointment today 02/01/2025 - Previously recommended bladder suspension surgery - pt has both stress and urge incontinence - Currently taking tolterodine - Recently prescribed Lotrisone cream for vaginal itching - Renal ultrasound on 12/17/2024 showed nonobstructing right kidney stone. - Patient is taking SGLT2 inhibitor - Continue cranberry tablets as recommended by urologist Assessment & Plan (10/26/2024 8:44 AM EDT): - previously seen by [facility] Urologist -was recommended bladder suspension surgery -pt has both stress and urge incontinence -will refer back to Urologist -discussed about possible side effects including urinary problem with new medication for type 2 diabetes and pt verbalize understanding Assessment & Plan (05/13/2024 1:54 PM EDT): - previously seen by [facility] Urologist -was recommended bladder suspension surgery -pt has both stress and urge incontinence -will refer back to Urologist -discussed about possible side effects including urinary problem with new medication for type 2 diabetes and pt verbalize understanding Assessment & Plan (01/16/2024 11:23 AM EDT): - previously seen by [facility] Urologist -was recommended bladder suspension surgery [...] patient's request Hypothyroidism 10/01/2023 Assessment & Plan (02/14/2025 2:44 PM EDT): - current replacement: levothyroxine 50 mcg daily - last TSH 2.92 on 10/18/2024 - recheck lab and adjust dose accordingly Assessment & Plan (10/26/2024 8:44 AM EDT): [...] TDap/Td: 03/02/2011, states she had repeat in [place]. No records. Will task MA to try and locate [place] records Foot exam/peripheral pulses: WNL 10 on 03/14/23 EFREM/ARB: Lisinopril 20 mg Statin: none Assessment & Plan (02/14/2025 2:43 PM EDT): - Dx in January 2023 - A1C 8.1% on 02/01/25, increased from 6.8% on 09/22/24 - continue working on lifestyle modifications - continue metformin ER 500 mg bid, improve adherence - continue dapagliflozin (Farxiga) 10 mg daily - Increase semaglutide 0.5 mg weekly - foot exam: 10/26/24 - eye exam: [facility] eye care Apr 2024, no diabetic retinopathy - microalbumin: Apr 2022, mild microalbuminuria - lipid profile: Apr 2024 TG 200; TC 180; LDL 95; HDL 45 Assessment & Plan (10/29/2024 10:16 AM EDT): - Dx in January 2023 - A1C 6.8% on 09/22/24, slight improvement from 7.2% on 05/13/24 - continue working on lifestyle modifications - continue metformin ER 500 mg bid - continue dapagliflozin (Farxiga) 10 mg daily - continue semaglutide 0.25 mg weekly - foot exam: 10/26/24 - eye exam: [facility] eye care Apr 2024, no diabetic [...] visit - eye exam: referred again to [facility] eye care - microalbumin: Apr 2022, [...] numbness - eye exam: referred again to [facility] eye care - microalbumin: Apr 2022, [...] numbness - eye exam: referred again to [facility] eye care - microalbumin: Apr 2022, [...] check RAST or referral to allergy / plastic surgery specialist Assessment & Plan (10/06/2023 5:02 PM EDT): - continue cetirizine, montelukast, and Fluticasone nasal (Flonase) - check RAST or referral to allergy / plastic surgery specialist Dyslipidemia 10/31/2012 Assessment & Plan (02/14/2025 2:39 PM EDT): - last lipid profile in Apr 2024 - patient has been taking fenofibrate, but not on statin - she has not started statin yet. Will start atorvastatin 10 mg qhs Assessment & Plan (10/26/2024 11:24 PM EDT): [...] to PT Asthma 1960 Assessment & Plan (02/14/2025 2:55 PM EDT): - followed by [facility] fire priming tool setter, Dr. Awad, [facility], last seen on 10/15/24, advised to reschedule a follow up appointment - last PFT in November 2024 - continue mometasone (Asmanex) as maintenance - continue montelukast - continue albuterol neb and HFA prn Assessment & Plan (10/29/2024 10:08 AM EDT): - followed by rim fire priming tool setter, Dr. Awad, [facility], last seen on 10/15/24 - continue mometasone [...] on RA. Hypertension 1960 Assessment & Plan (02/14/2025 2:36 PM EDT): -Goal BP < 130/80 per ACC/AHA guideline (Treatment threshold >= 130/80) - BP not at goal today. Patient has not been adherent to CPAP. -Continue working on lifestyle modifications -Recommended self-monitoring BP. -Continue current medications: Valsartan 160 mg; amlodipine 5 mg daily -Questionable medication adherence -Optimize Tx for DONA Assessment & Plan (10/29/2024 10:09 AM EDT): [...] contacted for sleep study Assessment & Plan (02/14/2025 2:58 PM EDT): - most recent sleep study, ordered by Dr. Awad, in November 2024 Impression: Obstructive sleep apnea, mild, total sleep time AHI 17.5, and snoring 17% of the sleep time. Mild nocturnal hypoxemia with lowest O2 sat 78% and O2 sats below 88% for 9 minutes. - Advised the patient to reschedule appointment with Dr. Barnes so that she can receive CPAP. Recommended to contact her wound care nurse from [facility] if she has difficulty Assessment & Plan (10/29/2024 10:07 AM EDT): - sleep study at [facility] on 03/06/23 - report recommends in-lab for titration study or auto-PAP 6-20 cm H2O - script for AutoPAP was written in September 2023, still does not have one - recently seen by rim fire priming tool setter, and re-ordered sleep study / CPAP Assessment & Plan (05/13/2024 1:54 PM EDT): - sleep study at [facility] on 03/06/23, ordered by previous PCP - report recommends in-lab for titration study or auto-PAP 6-20 cm H2O - script for AutoPAP was written in September 2023, will check up on that Assessment & Plan (01/16/2024 11:20 AM EDT): - sleep study at [facility] on 03/06/23, ordered by previous PCP - report recommends in-lab for titration study or auto-PAP 6-20 cm H2O - script for AutoPAP was written in September 2023, will check up on that Assessment & Plan (10/06/2023 4:49 PM EDT): - sleep study at [facility] on 03/06/23, ordered by previous PCP - [...] Encounters Date Type Department Care Team Description 04/08/2025 Orders Only GENERIC EXTERNAL DATA DEPARTMENT Provider, Generic External Data 03/16/2025 Refill [facility] [address] [place] [address] Vivien Ohara MD Multinodular goiter; Primary hypertension 03/03/2025 Refill [facility] [address] [place] [address] Vivien Ohara MD 02/23/[address] [address] Vivien Ohara MD Telephone Call 02/19/2025 Orders Only [address] [address] Vivien Ohara MD Type 2 diabetes mellitus without complication, without long-term current use of insulin ([facility]) (Primary Dx) 02/19/2025 Orders Only [facility] [address] [place] [address] Vivien Ohara MD 02/18/[address] [address] Vivien Ohara MD Hypertension, unspecified type; Type 2 diabetes mellitus without complication, without long-term current use of insulin ([facility]) 02/18/[address] [address] Vivien Ohara MD Durable Medical Equipment 02/10/2025 Refill [facility] [address] [place] [address] Vivien Ohara MD 02/01/2025 3:00 PM EDT Office Visit [address] [address] Vivien Ohara MD Hypertension, unspecified type (Primary Dx); Type 2 diabetes mellitus without complication, without long-term current use of insulin ([facility]); Dyslipidemia; Hypothyroidism, unspecified type; Vitamin D deficiency; Mixed stress and urge urinary incontinence; Mild intermittent asthma without complication; Skin lesions; Class 2 severe obesity due to excess calories with serious comorbidity and body mass index (BMI) of 39.0 to 39.9 in adult ([facility]); Kidney stone; Obstructive sleep apnea syndrome 02/01/2025 Orders Only GENERIC EXTERNAL DATA DEPARTMENT Provider, Generic External Data 02/01/2025 Travel 01/28/[address] [address] Vivien Ohara MD chart prep from Last 3 Months Immunizations Immunization Administration [...] Sign Reading Time Taken Comments Blood Pressure 152/90 02/01/2025 3:36 PM EDT Pulse 80 02/01/2025 3:20 PM EDT Temperature 36.2 C (97.1 F) 02/01/2025 3:20 PM EDT Respiratory Rate 17 02/01/2025 3:20 PM EDT Oxygen Saturation 97% 02/01/2025 3:20 PM EDT Inhaled Oxygen Concentration - - Weight 87.6 kg (193 lb 3.2 oz) 02/01/2025 3:20 P M EDT Height 149.5 cm (4' 10.87 ) 02/01/2025 3:20 PM E DT Body Mass Index 39.19 02/01/2025 3:20 PM EDT Plan of Treatment Upcoming Encounters Date Type Department Care Team (Late st Contact Info) Description 05/04/2025 3:30 PM EDT Office Visit [facility] [address] [place] [address] Vivien Ohara MD [address] [place] [address] Health Maintenance Due Date Last Done Comments CT Colonography 1960 Colonoscopy 1960 Colorectal Cancer Screening 1960 FIT DNA/Cologuard 1960 FIT 1960 FOBT 1960 Sigmoidoscopy 1960 Hepatitis C Screening 1977 Pneumococcal Vaccine: 50+ Years (2 of 2 - PCV) 04/17/2007 04/17/2006, 04/17/2006 Zoster Vaccines (1 of 2) 2009 RSV Patients and Patients Aged 60 years or older (1 - Risk 60-74 years 1-dose series) 2019 Diabetes: Urine Protein Screening 05/01/2023 05/01/2022 COVID-19 Vaccine ( season) 2025 Influenza Vaccine (#1) 2025 05/25/2013 Depression Monitoring 04/27/2025 10/26/2024, 025 Diabetes: Hemoglobin A1C 05/04/2025 025, 09/22/2024, 05/13/2024, Additional history exists Lipid Panel 05/13/2025 05/13/2024, 05/04/2022 Diabetes: Foot Exam 10/26/2025 10/26/2024, 10/26/2024, 10/26/2024, Additional history exists Mammogram 01/06/2026 01/07/2024 Alcohol/Substance Use Screening 02/01/2026 02/01/2025 SDOH Screening 02/01/2026 02/01/2025 Tobacco Screening 02/14/2026 02/14/2025 Eye Exam 04/30/2026 04/30/2024, 1009/2023, 04/30/2024, Additional [...] Procedure Name Priority Date/Time Associated Diagnosis Comments URINALYSIS, COMPLETE Routine 04/08/2025 1:15 PM EDT CBC WITH AUTO DIFFERENTIAL Routine 04/08/2025 1:15 PM EDT CALCIUM Routine 04/08/2025 1:15 PM EDT CREATININE, SERUM Routine 04/08/2025 1:1 5 PM EDT UREA NITROGEN (BUN) Routine 04/08/2025 1 :15 PM EDT ELECTROLYTE PANEL Routine 04/08/2025 1:1 5 PM EDT CYTOPATH-CELL ENHANCED Routine 5:02 PM EDT POCT GLUCOSE Routine 02/01/2025 3:20 PM EDT Type 2 diabetes mellitus without complication, without long-term current use of insulin ([facility]) POCT GLYCOSYLATED HEMOGLOBIN (HGB A1C) Routine 02/01/2025 3:19 PM EDT Type 2 diabetes mellitus without complication, without long-term current use of insulin ([facility]) LIPID PANEL WITH REFLEX TO DIRECT LDL Routine 05/13/2024 11:00 AM EDT Type 2 diabetes mellitus without complication, without long-term current use of insulin ([facility]) Hypertension, unspecified type BI MAMMOGRAM SCREENING TOMOSYNTHESIS BILATERAL Routine 01/07/2024 12:55 PM EDT ALBUMIN, RANDOM URINE W/CREATININE Routine 05/01/2022 4:14 PM EDT from Last 3 Months or Most Recently Relevant to Health Maintenance Results * Creatinine, Serum (04/08/2025 1:15 PM EDT) Creatinine, Serum 0.79 0.5 - 1.4 mg/dL [facility] Estimated Glomerular Filt Rate >60 [facility] Comment:Chronic Kidney Disea se: Estimated GFR < 60 mL/min/1.65e1Imnska Kidney Disease: Estimated GFR < 15 mL/min/1.73m2 04/08/2025 1:15 PM EDT 04/08/2025 4:03 PM EDT us Generic External Data Provider LAB BLOOD ORDERAB LES Final Result [facility] [address] [place] [address] [phone] * (ABNORMAL) CBC auto differential (04/08/2025 1:15 PM EDT) White Blood Count 9.7 4.8 - 10.8 X10*3/uL [facility] Red Blood Count 4.41 4.20 - 5.50 X10*6/uL [facility] Hemoglobin 12.7 12.0 - 16.0 g/dl [facility] Hematocrit 37.2 37.0 - 47.0 % [facility] Mean Corpuscular Volume 84.4 80.0 - 98.0 fL [facility] Mean Corpuscular Hemoglobin 28.8 27.0 - 33.0 pg [facility] Mean Corpuscular HGB Conc 34.1 31.0 - 35.0 g/dl [facility] Red Cell Distribution Width 13.7 11.0 - 16.0 % [facility] Platelet Count 253 160 - 400 X10*3/uL [facility] Mean Platelet Volume 10.2 9.4 - 12.3 fL [facility] Neutrophils Percent Auto 59.6 45 - 73 % [facility] Imm Gran Pct Auto 0.4 0.0 - 0.4 % [facility] Lymphocytes Percent Auto 27.9 20 - 40 % [facility] Monocytes Percent Auto 8.1 2 - 11 % [facility] Eosinophils Percent Auto 3.6 0 - 4 % [facility] Basophils Percent Auto 0.4 0 - 2 % [facility] NRBC Pct Auto 0.0 0.0 - 0.2 /100WBC [facility] Neutrophils Absolute Auto 5.8 2.0 - 8.3 x10*3/uL [facility] Imm Gran Abs Auto 0.04(H) 0.00 - 0.03 X10*3/uL [facility] Lymphocytes Absolute Auto 2.7 1.2 - 4.9 X10*3/uL [facility] Monocytes Absolute Auto 0.8 0.1 - 1.2 X10*3/uL [facility] Eosinophils Absolute Auto 0.4 0.0 - 0.4 X10*3/uL [facility] Basophils Absolute Auto 0.0 0.0 - 0.2 X10*3/uL [facility] NRBC Abs Auto 0.000 0.0 - 0.012 X10*3/uL [facility] 04/08/2025 1:15 PM EDT 04/08/2025 4:03 PM EDT us Generic External Data Provider LAB BLOOD ORDERAB LES Final Result Performing Organization Address City/State/[facility] Co de Phone Number [facility] [address] [place] [address] [phone] * (ABNORMAL) Urinalysis Complete (04/08/2025 1:15 PM EDT) Color Urine Yellow [facility] Appearance Urine Cloudy [facility] PH 5.5 5.0 - 9.0 [facility] Glucose Urine UA Negative Negative mg/dL [facility] Urine Blood Small (1+)(A) Negative [facility] Specific Morrison - Urine 1.020 1.005 - 1.025 [facility] Urine Protein Trace Neg-Trace mg/dL [facility] Urine Ketones Trace Negative mg/dL [facility] Nitrite Urine Negative Negative [facility] Leukocyte Esterase Urine Large (3+)(A) Negative [facility] RBC Urine 0-2 0 - 2 /HPF [facility] Urine WBC >50(A) 0 - 5 /HPF [facility] Urine Squamous Epithelial Cell 11-20 0 - 2 /HPF [facility] Urine Bacteria 3+ None Seen [facility] Hyaline Casts, Urine 0-2 0 - 2 /LPF [facility] 04/08/2025 1:15 PM EDT 04/08/2025 4:03 PM EDT Generic External Data Provider LAB URINE ORDERAB LES Final Result Performing Organization Address [facility]/ZIP Co de Phone Number [facility] [address] [place] [address] [phone] * BUN (Blood Urea Nitrogen) (04/08/2025 1:15 PM EDT) Urea Nitrogen (BUN) 16 9 - 16 mg/dL [facility] 04/08/2025 1:15 PM EDT 04/08/2025 4:03 PM EDT Generic External Data Provider LAB BLOOD ORDERAB LES Final Result Performing Organization Address [facility] Co de Phone Number [facility] [address] [place] [address] [phone] * Calcium (04/08/2025 1:15 PM EDT) Calcium 8.9 8.4 - 10.2 mg/dL [facility] 04/08/2025 1:15 PM EDT 04/08/2025 4:03 PM EDT Generic External Data Provider LAB BLOOD ORDERAB LES Final Result Performing Organization Address [facility] de Phone Number [facility] [address] [place] [address] [phone] * (ABNORMAL) Electrolyte Panel (04/08/2025 1:15 PM EDT) Sodium 138 135 - 145 mmol/L [facility] Potassium 3.5 3.3 - 5.1 mmol/L [facility] Chloride 106 96 - 108 mmol/L [facility] Carbon Dioxide 25 22 - 29 mmol/L [facility] Anion Gap 11(L) 12 - 20 [facility] 04/08/2025 1:15 PM EDT 04/08/2025 4:03 PM EDT us Generic External Data Provider LAB BLOOD ORDERAB LES Final Result [facility] [address] [place] [phone] * Cytopath-cell enhanced (02/01/2025 5:02 PM EDT) 02/01/2025 5:02 PM EDT 02/02/2025 9:12 AM EDT Narrative [facility] - 02/02/2025 4:06 PM EDT ----- ------- Name: Lia Deleon Age/Sex: 65/F : 1960 Unit#: [id number] Attend Dr: Nikunj Simon MD Re02/01/25 Status: HOLLI REF Location: [facility] Disch: ----- ------- SPEC : [id number] RECD: 02/02/25-911 STATUS: KATARZYNA HATFIEDL NUM: [id number] LORNA: 02/01/25-[address] [facility] [address]: Niuknj Simon MD ENTERED: 02/02/25-1030 SP TYPE: Cytology OTHR DR: Vivien Ohara MD ORDERED: Cyto-enhanced Diagnosis Urine, cytology: Negative for high-grade urothelial carcinoma. COMMENT: Review of the cytology preparation demonstrates a hypocellular specimen composed of few squames and urothelial cells. There is no significant atypia seen. Clinical History Other microscopic hematuria Material Received Urine Gross Description Received is 17 cc of cloudy yellow fluid from which a ThinPrep slide is prepared. IHC S/NG Disclaimer NOTE: Unless otherwise stated, all tissue is formalin-fixed and paraffin-embedded. Some or all of the immunohistochemical tests reported herein may have been developed and their performance characteristics determined by [facility]. They have not been cleared or approved by the U.S. Food and Drug Administration (FDA). However, the FDA has determined that such clearance or approval is not necessary. This laboratory is certified under the Clinical Laboratory Improvement Amendments of 1988 (CLIA) as qualified to perform high complexity clinical laboratory testing. Copies To: Nikunj Simon MD [facility] [address] [place] [address] Dr. Castellanos [address] [place] [phone] [email or web address] Vivien Ohara MD [address] [address] CONTINUED ON NEXT PAGE ----- ------- Name: Lia Deleon Age/Sex: 65/F : 1960 Unit#: [id number] Attend Dr: Nikunj Simon MD Re02/01/25 Status: DEP REF Location: [facility] Disch: ----- ------- SPEC : [id number] RECD: 02/02/25 STATUS: KATARZYNA HATFIELD NUM: [id number] LORNA: 02/01/[address]: Nikunj Simon MD ENTERED: 02/02/25 SP TYPE: Cytology OTHR DR: Vivien Ohara MD ORDERED: Cyto-enhanced ----- ------- Signed (signature on file) Bella Darnell MD 02/02/25 1606 ----- ------- END OF REPORT us Generic External Data Provider LAB CYTOLOGY CHEYANNE DORADO Final Result [facility] [address] [place] [phone] * POCT glucose manually resulted (02/01/2025 3:20 PM EDT) Glucose Blood, POC 140 60 - 200 mg/dL QC Media Lot # [id number] Lot# Expiration Date Blood Capillary blood specimen / Unknown 02/01/2025 3:20 PM EDT us Vivien Ohara MD POINT OF CARE TEST ENTER/EDIT OR DERABLES Final Result * (ABNORMAL) POCT glycosylated hemoglobin (Hgb A1c) (02/01/2025 3:19 PM EDT) Hemoglobin A1C 8.1(A) 4.0 - 5.7 % QC Media Lot # [id number] Lot# Expiration Date Blood Capillary blood specimen / Unknown 02/01/2025 3:19 PM EDT Vivien Ohara MD POINT OF CARE TEST ENTER/EDIT OR DERABLES Final Result * (ABNORMAL) Lipid Panel with Reflex to Direct LDL (05/13/2024 11:00 AM EDT) Triglycerides 200(H) <150 mg/dL [facility] Comment:Desirable Triglyceri de: less than 150 mg/dLBorderline High Triglyceride 150-199 mg/dLHigh Triglyceride: 200-499 mg/dLVery High Triglyceride: greater than or equal to 5OO mg/dL Cholesterol 180 <200 mg/dL [facility] Comment:Desirable Cholestero l: less than 200 mg/dLBorderline High Cholesterol: 200-239 mg/dLHigh Cholesterol: greater than 239 mg/dL LDL Cholesterol Calculated 95 <100 mg/dL [facility] Comment:Desirable LDL: less than 100 mg/dLNear Optimal/Above Optimal LDL: 110- 129 mg/dLBorderline High LDL: 130-159 mg/dLHigh LDL: 160-189 mg/dLVery High LDL: greater than or equal to 190 mg/dL HDL Cholesterol 45 >40 mg/dL [facility] Comment:Desirable HDL: great er than 40 mg/dL Note: This HDL assay may give artificially low results in patients with liver disease. Blood 05/13/2024 11:0 0 AM EDT 05/13/2024 11:37 AM EDT us Vivien Ohara MD LAB BLOOD ORDERABLES Final Resul t [facility] [address] [place] [address] [phone] * BI Mammogram Screening Tomosynthesis Bilateral (01/07/2024 12:55 PM EDT) Anatomical Region Laterality Modality Breast Bilateral Mammography 01/07/2024 12:5 5 PM EDT Narrative 02/06/2024 9:41 AM EDT [address] [place] [address] Mammography Report Signed Patient: Lia Deleon MR#: [id number] : 1960 Acct:[id number] Age/Sex: 63 / F ADM Date: 01/07/24 Loc: BECK Attending Dr: Vivien Ohara MD Ordering Physician: Vivien Ohara MD Results: 1Negative Date of Service: 01/07/24 Follow Up: 1 Year From Orig ina Mammogram Procedure(s): MM tomosynthesis screening BI Accession Number(s): [id number] cc: Vivien Ohara MD EXAMINATION: MM SCREENING [...] signed by Aga Cerrato MD in OV> 02/06/24936 DD/ 125 TD/TT: In House Cra: Procedure Note Donotuseinterpreter, Image - [facility] [address] [place] [address] Mammography Report Signed Patient: Nathanael Deleon#: [id number] : 9Acct:[id number] Age/Sex: 63 / FADM Date: 01/07/24 Loc: BECK Attending Dr: Vivien Ohara MD Ordering Physician: Vivien Ohara MDResults: 1Negative Date of Service: 01/07/24Follow Up: 1 Year From Orig inal Mammogram Procedure(s): MM tomosynthesis screening BI Accession Number(s): [id number] cc: Vivien Ohara MD EXAMINATION: MM SCREENING [...] signed by Aga Cerrato MD in OV> 02/06/2437 DD/ 1255 TD/TT: In House Cra: us Vivien Ohara MD IMG BI PROCEDURES Final Result * (ABNORMAL) ALBUMIN, RANDOM URINE W/CREATININE (05/01/2022 4:14 PM EDT) Microalbumin Urine 3.5 See Note: mg/dL [facility] Comment: Reference Range: Reference Range Not established Microalb/Creat Ratio 38(H) <30 mcg/mg creat [facility] Comment: The ADA defines abnormalities in albumin excretion as follows: Albuminuria Category Result (mcg/mg creatinine) Normal to Mildly increased <30 Moderately increased 30-299 Severely increased > OR = 300 The ADA recommends that at least two of three specimens collected within a 3-6 month period be abnormal before considering a patient to be within a diagnostic category. Creatinine, Urine 92 20 - 275 mg/dL [facility] 05/01/2022 4:14 PM EDT Kandi Vanessa [employer] LAB URINE ORDERABLES Final Result [facility] from Last 3 Months or Most Recently Relevant to Health Maintenance Insurance [facility] [employer] (O D-SNP) Care Teams Architectural Administrative Assistant Relationship Specialty Start Date End Date Vivien Ohara MD [address] [place] [address] PCP - General Family Medicine 08/19/23
--- OUTSIDE RECORDS SUMMARY | 2025-04-08 17:10 | XMS_ITS | Encounter Summary ---
Author Organization [employer] Address [address] [place] [address] 7 [place] [address] Care Team Providers Care Clinical Resource Nurse Name Role Phone Vivien Ohara MD Primary Care Provider [phone] Reason for Referral * Consultation (Routine) - Closed Specialty Diagnoses / Procedures Referred By Contac t Referred To Contact Pharmacy Diagnoses Type 2 diabetes mellitus without complication, without long-term current use of insulin (CMS/HCC) Hypertension, unspecified type Vivien Ohara MD [address] [place] [address] Phone: tel: fax: Referral ID Status Reason Start Date Expiration Date V isits Requested Visits Authorized [id number] Closed Continuity of Care 04/29/2024 04/29/2025 6 6 Encounter Details Date Type Department Care Team ([facility] st Contact Info) Description 04/29/2024 Orders Only [facility] [address] [place], [place] [phone] Vivien Ohara MD [address] [place], [place] [phone] Type 2 diabetes mellitus without complication, without [...] Description 05/04/2025 3:30 PM EDT Office Visit [facility] [address] [place], [place] [phone] Vivien Ohara MD [address] [place], [place] [phone] Scheduled Referrals Name Type Priority Associated Diagnoses Orde r Schedule Referral to Pharmacy [place] Outpatient Referral Routine Type 2 diabetes mellitus without complication, without long-term current use of insulin ([facility]) Hypertension, unspecified type Ordered: 04/29/2024 documented as of this encounter Visit Diagnoses Diagnosis Type 2 diabetes mellitus without complication, without long-term current use of insulin (CMS/[facility])- Primary Hypertension, unspecified type documented in this encounter Additional Health Concerns Assessment Noted Time PHQ-9 Depression Total Score: 0 03/14/20 23 1:40 PM EDT documented as of this encounter Care Teams Clinical Resource Nurse Relationship Specialty Start Date End Date Vivien Ohara MD [address] [place] [address] PCP - General Family Medicine 08/19/23 documented as of this encounter
--- OUTSIDE RECORDS SUMMARY | 2025-04-08 17:10 | XMS_ITS | Encounter Summary ---
Author Organization [employer] Address [address] [facility] 7t [place] [address] Care Team Providers Care Miter Sawyer Name Role Phone Kandi Vanessa Ciera NORTONP Primary Care Provider Lakeisha Barclay NP Primary Care Provider [phone] Vivien Ohara MD Primary Care Provider [phone] Reason for Visit * Reason Comments Med Refill Encounter Details Date Type Department Care Team ([facility] Contact Info) Description 08/14/2022 Refill [facility] [address] [place] [address] Hailey Gomez MD [address] [place] [address] Cough in adult Social History Tobacco Use [...] Upcoming Encounters Date Type Department Care Team ([facility] Contact Info) Description 05/04/2025 3:30 PM EDT Office Visit [facility] [address] [place] [address] Vivien Ohara MD [address] [place] [address] documented as of this encounter Visit Diagnoses Diagnosis Cough in adult documented in this encounter Care Teams Miter Sawyer Relationship Specialty Start Date End Date Kandi Vanessa FNP PCP - General Family Medicine 03/07/22 05/02/23 Lakeisha Yadav NP [address] [place] [address] PCP - General Family Medicine 05/03/23 08/18/23 Vivien Ohara MD [address] [place] [address] PCP - General Family Medicine 08/19/23 documented as of this encounter
--- OUTSIDE RECORDS SUMMARY | 2025-04-08 17:10 | XMS_ITS | Encounter Summary ---
Author Organization [employer] Address [address] [facility] 7t [place] [address] Care Team Providers Care Patient Support Representative Name Role Phone Vivien Ohara MD Primary Care Provider [phone] Reason for Visit * Reason Comments Med Refill Encounter Details Date Type Department Care Team ([facility] st Contact Info) Description 05/14/2024 Refill [facility] [address] [place], [place] [phone] Vivien Ohara MD [address] [place], [place] [phone] Mild intermittent asthma with acute exacerbation Social [...] 3:30 PM EDT Office Visit [facility] [address] [place] [phone] Vivien Ohara MD [address] [place] [address] documented as of this encounter Visit Diagnoses Diagnosis Mild intermittent asthma with acute exacerbation documented in this encounter Additional Health Concerns Assessment Noted Time PHQ-9 Depression Total Score: 0 03/14/20 23 1:40 PM EDT documented as of this encounter Care Teams Patient Support Representative Relationship Specialty Start Date End Date Vivien Ohara MD [address] [place] [address] [phone] PCP - General Family Medicine 08/19/23 documented as of this encounter
--- OUTSIDE RECORDS SUMMARY | 2025-04-08 17:10 | XMS_ITS | Encounter Summary ---
Author Organization [employer] Address [address] [facility] 7t [place] [address] Care Team Providers Care Die Maker Electronic Name Role Phone Vivien Ohara MD Primary Care Provider [phone] Encounter Details Date Type Department Care Team ([facility] Contact Info) Description 02/19/2025 Orders Only [facility] [address] [place], [place] [phone] Vivien Ohara MD [address] [place] [address] Social History Tobacco Use Types Packs/Day Years [...] Description 05/04/2025 3:30 PM EDT Office Visit [facility] [address] [place] [address] Vivien Ohara MD [address] [place] [address] documented as of this encounter Visit Diagnoses Not on filedocumented in this encounter Additional Health Concerns Assessment Noted Time PHQ-9 Depression Total Score: 13 025 12:01 PM EDT documented as of this encounter Care Teams Die Maker Electronic Relationship Specialty Start Date End Date Vivien Ohara MD [address] [place], [place] [phone] PCP - General Family Medicine 08/19/23 documented as of this encounter
--- OUTSIDE RECORDS SUMMARY | 2025-04-08 17:10 | XMS_ITS | Encounter Summary ---
Author Organization [employer] Address [address] [facility] 7t [place] [address] Care Team Providers Care Artistic Associate Name Role Phone Vivien Ohara MD Primary Care Provider [phone] Encounter Details Date Type Department Care Team ([facility] st Contact Info) Description 02/19/2025 Orders Only [facility] [address] [place], [place] [phone] Vivien Ohara MD [address] [place] [address] Type 2 diabetes mellitus without complication, without long-term current use of insulin ([facility]) (Primary Dx) Social History Tobacco Use Types Packs/Day Years [...] Description 05/04/2025 3:30 PM EDT Office Visit [facility] [address] [place] [address] Vivien Ohara MD [address] [place] [address] documented as of this encounter Visit Diagnoses Diagnosis Type 2 diabetes mellitus without complication, without long-term current use of insulin ([facility])- Primary documented in this encounter Additional Health Concerns Assessment Noted Time PHQ-9 Depression Total Score: 13 025 12:01 PM EDT documented as of this encounter Care Teams Artistic Associate Relationship Specialty Start Date End Date Vivien Ohara MD [address] [place] [address] PCP - General Family Medicine 08/19/23 documented as of this encounter
--- OUTSIDE RECORDS SUMMARY | 2025-04-08 17:10 | XMS_ITS | Encounter Summary ---
Author Organization [employer] Address 75 [facility] 7t [place] [address] Care Team Providers Care Delivery Merchandiser Name Role Phone Vivien Ohara MD Primary Care Provider [phone] Reason for Visit * Reason Onset Date Comments Med Refill 03/10/2024 Encounter Details Date Type Department [facility] Team ([facility] Contact Info[facility] Description 03/10/2024 Refill [facility] [address] [place], [place] [phone] Vivien Ohara MD [address] [place], [place] [phone] Primary osteoarthritis involving multiple joints Social History [...] Office Visit [facility] [address] [place] [address] Vivien Ohara MD [address] [place] [address] documented as of this encounter Visit Diagnoses Diagnosis Primary osteoarthritis involving multiple joints documented in this encounter Additional Health Concerns Assessment Noted Time PHQ-9 Depression Total Score: 0 03/14/20 23 1:40 PM EDT documented as of this encounter Care Teams Delivery Merchandiser Relationship Specialty Start Date End Date Vivien Ohara MD [address] [place] [address] PCP - General Family Medicine 08/19/23 documented as of this encounter
--- OUTSIDE RECORDS SUMMARY | 2025-04-08 17:10 | XMS_ITS | Encounter Summary ---
Author Organization [employer] Address [address] [facility] 7t [place] [address] Care Team Providers Care Creative Engagement Director Name Role Phone Vivien Ohara MD Primary Care Provider [phone] Reason for Visit * Reason Comments Med Refill Encounter Details Date Type Department Care Team ([facility] st Contact Info) Description 05/04/2024 Refill [facility] [address] [place], [place] [phone] Vivien Ohara MD [address] [place], [place] [phone] Social History Tobacco Use Types Packs/Day Years [...] Description 05/04/2025 3:30 PM EDT Office Visit [facility] [address] [place] [address] Vivien Ohara MD [address] [place] [address] documented as of this encounter Visit Diagnoses Not on filedocumented in this encounter Additional Health Concerns Assessment Noted Time PHQ-9 Depression Total Score: 0 03/14/20 23 1:40 PM EDT documented as of this encounter Care Teams Creative Engagement Director Relationship Specialty Start Date End Date Vivien Ohara MD [address] [place] [phone] PCP - General Family Medicine 08/19/23 documented as of this encounter
[2025-04-08 18:06] LABS: Protein/Creatinine Ratio, Ur 0.07 (<0.2); Total Protein Urine Random 14 mg/dL (<12)
[2025-04-09 08:28] LABS: HBc Num1 0.13 S/CO (0.00-0.79); HBsAGNum1 2.35 S/CO (0.00-0.99); ~HepC Num1 0.20 S/CO (0.00-0.79); ~Hepatitis C Antibody Nonreactive (Nonreactive)
[2025-04-09 10:50] LABS: HBsAGNum2 Nonreactive; HBsAGNum3 Nonreactive; Hepatitis B Surface Antigen NEGATIVE (Negative)
[2025-04-09 15:47] LABS: Anti Glomerular Basement Memb <1.0 AI; Proteinase 3 PR3 Antibodies <1.0 AI
[2025-04-14 23:18] LABS: Phospholipase A2 IgG ELISA <4 RU/mL; Phospholipase A2 IgG IFA NEGATIVE (NEGATIVE)
== END 2025-04-08 13:08 | disposition home or self-care (01) ==
LOC: HO.HHCL 13:07
PROVIDERS: PCP Family Medicine; Visit Provider Internal Medicine Nephrology
DX: I10 Essential (primary) hypertension (principal); R31.29 Other microscopic hematuria; R80.9 Proteinuria, unspecified; Z01.84 Encounter for antibody response examination
CPT/HCPCS: 36415; 80051; 81001; 82310; 82565; 82570; 82784; 83520; 84156; 84520; 85025; 86021; 86160; 86225; 86255; 86334; 86704; 86803; 87340

== ENCOUNTER 2025-04-09 14:47 | Outpatient (AMB) | payer OTHER, SELFPAY ==
--- NOTE | 2025-04-09 14:52 | HO.NEPHOV_ITS ---
Vital Signs 04/09/25 14:53 Height 4 ft 10 in Weight 188 lb 8 oz BMI 39.4 BP 120/70 Blood Pressure Location Rt brachial Position Sitting Pulse 79 Pulse Source Pulse Oximeter Pulse Oximetry (%) 98 Oxygen Delivery Method Room Air Intake Visit Reasons: 6wk f/u w/labs-Conf Medical Reimbursement Specialist Required: No Accompanied by: Daughter Allergies penicillin V Allergy (Unknown, Verified 04/09/25 14:53) Anaphylaxis Penicillins Allergy (Unknown, Verified 04/09/25 14:53) Rash Sulfa (Sulfonamide Antibiotics) Allergy (Unknown, Verified 04/09/25 14:53) Anaphylaxis sulfamethoxazole Allergy (Unknown, Verified 04/09/25 14:53) rash trimethoprim Allergy (Unknown, Verified 04/09/25 14:53) rash HPI Comments Details: I had the privilege of seeing Lia in follow up for proteinuria and history of microscopic hematuria. She is 65 years of age history of renal calculi as well as overactive bladder. He is a diabetic and hypertensive on medications. She is on Farxiga and Ozempic. She is seen and is closely followed by Urology. She has history of sensorineural deafness bilaterally. She has family history of sensorineural deafness.She is not on any EFREM inhibitor or ARB. She denies any coronary artery disease, congestive heart failure, carotid stenosis, CVA, peripheral arterial disease, pedal edema, skin rashes, photosensitivity, recurrent sore throat, history of hepatitis, history of excessive nonsteroidal anti-inflammatory medication intake, macroscopic hematuria. Her renal functions are normal. [facility] Medical History Pulmonary fibrosis Asthma DONA (obstructive sleep apnea) Obesity (BMI 30-39.9) Gastritis Social History Patient Tobacco Use Status: Never used Tobacco Review of Systems Const All systems reviewed & are unremarkable except as noted in HPI and below Physical Exam Vital Signs: Last Vital Signs Pulse 79 04/09/25 14:53 BP 120/70 04/09/25 14:53 Pulse Ox 98 04/09/25 14:53 Oxygen Delivery Method Room Air 04/09/25 14:53 BMI result Body Mass Index 39.4 Const General: comfortable and no acute distress Orientation/consciousness: patient oriented x3 HEENT Head: Yes normocephalic Mouth: Normal oral and palatal mucosa present Eyes EOM: EOMs intact bilaterally Neck Neck: Yes supple Resp Auscultation: clear to auscultation bilaterally Cardio Jugular venous distension: no JVD Rate: regular rate GI Palpation (GI): Soft to palpation Auscultation: normal bowel sounds General: Yes no CVA tenderness Back/Spine/Pelvis Back: no CVA tenderness Skin General skin exam: no rashes or lesions noted Neuro General: patient oriented x3 and moves all extremities Extrem General: Yes no pedal edema Results Reviewed Nephrology Results: Hgb, (12.0-16.0) 12.7 g/dl 04/08/25 WBC, (4.8-10.8) 9.7 X10*3/uL 04/08/25 Plt Count, (160-400) 253 X10*3/uL 04/08/25 Sodium, (135-145) 138 mmol/L 04/08/25 Potassium, (3.3-5.1) 3.5 mmol/L 04/08/25 Chloride, (96-108) 106 mmol/L 04/08/25 Carbon Dioxide, (22-29) 25 mmol/L 04/08/25 BUN, (9-16) 16 mg/dL 04/08/25 Creatinine, (0.5-1.4) 0.79 mg/dL 04/08/25 Calcium, (8.4-10.2) 8.9 mg/dL 04/08/25 Urine Protein, (Neg-Trace) Trace mg/dL 04/08/25 Urine Creatinine 196.59 mg/dL 04/08/25 Protein/Creatinin Ratio, (<0.2) 0.07 04/08/25 Renal US 12/17/24 Assessment & Plan Assessment & Plan (1) Microscopic hematuria: Code(s): R31.29 - Other microscopic hematuria Category: Medical (2) Hypertension: Code(s): I10 - Essential (primary) hypertension Category: Medical Qualifiers: Hypertension type: primary hypertension Qualified Code(s): I10 - Essential (primary) hypertension (3) Renal calculi: Code(s): N20.0 - Calculus of kidney Category: Medical (4) Proteinuria: Code(s): R80.9 - Proteinuria, unspecified Category: Medical Qualifiers: Proteinuria type: other Qualified Code(s): R80.8 - Other proteinuria Plan Lia has hypertension, microscopic hematuria and proteinuria. She is known to have renal calculi. She has H/O sensorineural deafness. She is not on any EFREM inhibitor, ARB but on SGLT2 inhibitor. All the workup including blood work, urine studies and imaging studies were reviewed. She does not need a renal biopsy now. Her renal functions are normal. She should maintain good hydration. I did not make any medication changes but intend to initiate her on FEREM inhibitor and wean her off calcium channel maurice, if possible. She needs to lose weight. All her and her daughter's questions were answered and follow- up was given Orders: Orders Creatinine 7 Months I10 - Essential (primary) hypertension, R31.29 - Other micr oscopic hematuria UA and rflx microscopic 7 Months I10 - Essential (primary) hypertension, R31.29 - Other microscopic hematuria Protein Creatinine Ratio, Ur 7 Months I10 - Essential (primary) hypertension, R31.29 - Other microscopic hematuria Blood Urea Nitrogen 7 Months I10 - Essential (primary) hypertension, R31.29 - Other microscopic hematuria Electrolytes 7 Months I10 - Essential (primary) hypertension, R31.29 - Other microscopic hematuria Coding Level of Care Code Est Pt Level 4 (24422) Diagnoses Microscopic hematuria R31.29 Primary hypertension I10 Hypertension type: primary hypertension Renal calculi N20.0 Other proteinuria R80.8 Proteinuria type: other
[2025-04-09 14:53] VITALS: BP 120/70; PULSE 79; O2SAT 98; BMI 39.4
--- OUTSIDE RECORDS SUMMARY | 2025-04-09 17:28 | XMS_ITS | Encounter Summary ---
Author Organization [employer] Address [address] [facility] 7t [place] [address] Care Team Providers Care Yarn Cleaner Name Role Phone Kandi VanessaP Primary Care Provider Lakeisha Barclay NP Primary Care Provider [phone] Vivien Ohara MD Primary Care Provider [phone] Reason for Visit * Reason Onset Date Comments Results 08/03/2022 Encounter Details Date Type Department Care Team ([facility] st Contact Info) Description 08/03/2022 Telephone [facility] [address] [place] [address] Kandi Vanessa FNP Results Social History Tobacco [...] Description 05/04/2025 3:30 PM EDT Office Visit [facility] MED[facility] [address] [place] [address] Vivien Ohara MD [address] [place] [address] documented as of this encounter Visit Diagnoses Not on filedocumented in this encounter Care Teams Yarn Cleaner Relationship Specialty Start Date End Date Kandi Vanessa FNP PCP - General Family Medicine 03/07/22 05/02/23 Lakeisha Yadav NP [address] [place] [address] PCP - General Family Medicine 05/03/23 08/18/23 Vivien Ohara MD [address] [place] [address] PCP - General Family Medicine 08/19/23 documented as of this encounter
--- OUTSIDE RECORDS SUMMARY | 2025-04-09 17:28 | XMS_ITS | Encounter Summary ---
Author Organization [employer] Address 75 [facility] 7t [place] [address] Care Team Providers Care Regional Agronomist Name Role Phone Kandi Vanessa Ciera NORTONP Primary Care Provider Lakeisha Barclay NP Primary Care Provider [phone] Vivien Ohara MD Primary Care Provider [phone] Reason for Visit * Reason Comments Med Refill Encounter Details Date Type Department Care Team ([facility] Contact Info) Description 08/14/2022 Refill [facility] [address] [place] [address] Hailey Gomez MD [address] [place] [address] Cough in adult Social History Tobacco Use [...] Upcoming Encounters Date Type Department Care Team ([facility] Contact Info) Description 05/04/2025 3:30 PM EDT Office Visit [facility] [address] [place] [address] Vivien Ohara MD [address] [place] [address] documented as of this encounter Visit Diagnoses Diagnosis Cough in adult documented in this encounter Care Teams Regional Agronomist Relationship Specialty Start Date End Date Kandi Vanessa FNP PCP - General Family Medicine 03/07/22 05/02/23 Lakeisha Yadav NP [address] [place] [address] PCP - General Family Medicine 05/03/23 08/18/23 Vivien Ohara MD [address] [place] [address] PCP - General Family Medicine 08/19/23 documented as of this encounter
--- OUTSIDE RECORDS SUMMARY | 2025-04-09 17:28 | XMS_ITS | Encounter Summary ---
Author Organization [employer] Address [address] [place] [address] 7 [place] [address] Care Team Providers Care Repair Table Operator Name Role Phone Vivien Ohara MD Primary Care Provider [phone] Reason for Referral * Consultation (Routine) - Closed Specialty Diagnoses / Procedures Referred By Contac t Referred To Contact Pharmacy Diagnoses Type 2 diabetes mellitus without complication, without long-term current use of insulin (CMS/HCC) Hypertension, unspecified type Vivien Ohara MD [address] [place] [address] Phone: tel: fax: Referral ID Status Reason Start Date Expiration Date V isits Requested Visits Authorized [id number] Closed Continuity of Care 04/29/2024 04/29/2025 6 6 Encounter Details Date Type Department Care Team ([facility] st Contact Info) Description 04/29/2024 Orders Only [facility] [address] [place], [place] [phone] Vivien Ohara MD [address] [place], [place] [phone] Type 2 diabetes mellitus without complication, without [...] 05/04/2025 3:30 PM EDT Office Visit [facility] [address] [place], [place] [phone] Vivien Ohara MD [address] [place], [place] [phone] Scheduled Referrals Name Type Priority Associated Diagnoses Orde r Schedule Referral to Pharmacy [place] Outpatient Referral Routine Type 2 diabetes mellitus without complication, without long-term current use of insulin ([facility]) Hypertension, unspecified type Ordered: 04/29/2024 documented as of this encounter Visit Diagnoses Diagnosis Type 2 diabetes mellitus without complication, without long-term current use of insulin (CMS/[facility])- Primary Hypertension, unspecified type documented in this encounter Additional Health Concerns Assessment Noted Time PHQ-9 Depression Total Score: 0 03/14/20 23 1:40 PM EDT documented as of this encounter Care Teams Repair Table Operator Relationship Specialty Start Date End Date Vivien Ohara MD [address] [place] [address] PCP - General Family Medicine 08/19/23 documented as of this encounter
--- OUTSIDE RECORDS SUMMARY | 2025-04-09 17:28 | XMS_ITS | Encounter Summary ---
Author Organization [employer] Address 75 [facility] 7t [place] [address] Care Team Providers Care Vocational Training Teacher Name Role Phone Vivien Ohara MD Primary Care Provider [phone] Reason for Visit * Reason Onset Date Comments Med Refill 03/10/2024 Encounter Details Date Type Department Care Team ([facility] Contact Info) Description 03/10/2024 Refill [facility] [address] [place], [place] [phone] Vivien Ohara MD [address] [place], [place] [phone] Primary osteoarthritis involving multiple joints Social History [...] Description 05/04/2025 3:30 PM EDT Office Visit [facility] [address] [place] [address] Vivien Ohara MD [address] [place] [address] documented as of this encounter Visit Diagnoses Diagnosis Primary osteoarthritis involving multiple joints documented in this encounter Additional Health Concerns Assessment Noted Time PHQ-9 Depression Total Score: 0 03/14/20 23 1:40 PM EDT documented as of this encounter Care Teams Vocational Training Teacher Relationship Specialty Start Date End Date Vivien Ohara MD [address] [place] [phone] PCP - General Family Medicine 08/19/23 documented as of this encounter
--- OUTSIDE RECORDS SUMMARY | 2025-04-09 17:28 | XMS_ITS | Encounter Summary ---
Author Organization [employer] Address 75 [facility] 7t [place] [address] Care Team Providers Care Animal Physiology Teacher Name Role Phone Vivien Ohara MD Primary Care Provider [phone] Encounter Details Date Type Department Care Team ([facility] Contact Info) Description 10/27/2024 Orders Only [facility] 230 [place], [place] [phone] Vivien Ohara MD 230 [place] [address] Social History Tobacco Use Types Packs/Day Years [...] Description 05/04/2025 3:30 PM EDT Office Visit [facility] [address] [place] [address] Vivien Ohara MD [address] [place] [address] documented as of this encounter Visit Diagnoses Not on filedocumented in this encounter Additional Health Concerns Assessment Noted Time PHQ-9 Depression Total Score: 13 025 12:01 PM EDT documented as of this encounter Care Teams Animal Physiology Teacher Relationship Specialty Start Date End Date Vivien Ohara MD [address] [place] [address] [phone] PCP - General Family Medicine 08/19/23 documented as of this encounter
--- OUTSIDE RECORDS SUMMARY | 2025-04-09 17:28 | XMS_ITS | Encounter Summary ---
Author Organization [employer] Address [address] [facility] [address] 7t [place] [address] Care Team Providers Care Dairy Processing Equipment Operator Name Role Phone Vivien Ohara MD Primary Care Provider [phone] Reason for Visit * Reason Comments Med Refill Encounter Details Date Type Department Care Team ([facility] st Contact Info) Description 11/06/2023 Refill [facility] 230 [place] [address] Amanda Moreno MD [address] [place] [address] Social History Tobacco Use Types Packs/Day Years [...] 3:30 PM EDT Office Visit [facility] [address] [place] [phone] Vivien Ohara MD [address] [place] [address] documented as of this encounter Visit Diagnoses Not on filedocumented in this encounter Additional Health Concerns Assessment Noted Time PHQ-9 Depression Total Score: 0 03/14/20 23 1:40 PM EDT documented as of this encounter Care Teams Dairy Processing Equipment Operator Relationship Specialty Start Date End Date Vivien Ohara MD [address] [place] [phone] PCP - General Family Medicine 08/19/23 documented as of this encounter
--- OUTSIDE RECORDS SUMMARY | 2025-04-09 17:28 | XMS_ITS | Encounter Summary ---
Author Organization [employer] Address 75 [facility] 7t [place] [address] Care Team Providers Care Fabrication Supervisor Name Role Phone Vivien Ohara MD Primary Care Provider [phone] Reason for Visit * Reason Comments Med Refill Encounter Details Date Type Department Care Team ([facility] st Contact Info) Description 05/04/2024 Refill [facility] 230 [place], [place] [phone] Vivien Ohara MD 230 [place], [place] [phone] Social History Tobacco Use Types Packs/Day Years [...] Description 05/04/2025 3:30 PM EDT Office Visit [facility] 230 [place] [address] Vivien Ohara MD [address] [place] [address] documented as of this encounter Visit Diagnoses Not on filedocumented in this encounter Additional Health Concerns Assessment Noted Time PHQ-9 Depression Total Score: 0 03/14/20 23 1:40 PM EDT documented as of this encounter Care Teams Fabrication Supervisor Relationship Specialty Start Date End Date Vivien Ohraa MD [address] [place] [address] [phone] PCP - General Family Medicine 08/19/23 documented as of this encounter
--- OUTSIDE RECORDS SUMMARY | 2025-04-09 17:28 | XMS_ITS | Encounter Summary ---
Author Organization [employer] Address 75 [facility] 7t [place] [address] Care Team Providers Care Welder Gas Tungsten Arc Name Role Phone Vivien Ohara MD Primary Care Provider [phone] Encounter Details Date Type Department Care Team ([facility] Contact Info) Description 04/08/2025 Orders Only [...] Description 05/04/2025 3:30 PM EDT Office Visit [facility] 230 [place] [address] Vivien Ohara MD [address] [place] [address] Pending Results Name Type Priority Associated Diagnoses Date /Time DNA (ds) Antibody Lab Routine 025 1:15 PM EDT Glomerular Basement Membrane Antibody (IgG) Lab Routine 04/08/2025 1:15 PM EDT Myeloperoxidase Antibody (MPO) Lab Routine 04/08/2025 1:15 PM EDT Proteinase-3 Antibody Lab Routine 05/2025 1:15 PM EDT documented as of this encounter Procedures Procedure Name Priority Date/Time Associated Diagnosis Comments PROTEINASE-3 ANTIBODY Routine 04/08/2025 1:15 PM EDT HEPATITIS B SURFACE ANTIGEN (NON ORDERABLE) Routine 04/08/2025 1:15 PM EDT MYELOPEROXIDASE ANTIBODY (MPO) Routine 04/08/2025 1:15 PM EDT PROTEIN CREATININE RATIO, URINE Routine 04/08/2025 1:15 PM EDT CREATININE, SERUM Routine 04/08/2025 1:1 5 PM EDT CBC WITH AUTO DIFFERENTIAL Routine 04/08/2025 1:15 PM EDT HEPATITIS C AB W/REFL TO HCV RNA, QN, PCR Routine 04/08/2025 1:15 PM EDT GLOMERULAR BASEMENT MEMBRANE ANTIBODY (IGG) Routine 04/08/2025 1:15 PM EDT DNA (DS) ANTIBODY Routine 04/08/2025 1:1 5 PM EDT HEPATITIS B CORE AB TOTAL Routine 04/08/2025 1:15 PM EDT URINALYSIS, COMPLETE Routine 04/08/2025 1:15 PM EDT UREA NITROGEN (BUN) Routine 04/08/2025 1 :15 PM EDT CALCIUM Routine 04/08/2025 1:15 PM EDT ELECTROLYTE PANEL Routine 04/08/2025 1:1 5 PM EDT documented in this encounter Results * Hepatitis B Surface Antigen (04/08/2025 1:15 PM EDT) Hepatitis B Surface Ag NEGATIVE Negative [facility] 04/08/2025 1:15 PM EDT 04/08/2025 4:03 PM EDT Generic External Data Provider HISTORICAL/NON OR DERABLE LABS Final Result [facility] [address] [place] [address] [phone] * Hepatitis C Antibody with Reflex to HCV, RNA, Quantitative, Real-Time PCR (04/08/2025 1:15 PM EDT) Hepatitis C Antibody Nonreactive Nonreactive [facility] Comment:Antibodies to HCV no t detected; does not exclude early acuteHCV infection. 04/08/2025 1:15 PM EDT 04/08/2025 4:03 PM EDT Generic External Data Provider LAB BLOOD ORDERAB LES Final Result Performing Organization Address [facility] Co de Phone Number [facility] [address] [place] [phone] * Hepatitis B Core Antibody, Total (04/08/2025 1:15 PM EDT) Hepatitis B Core Antibody Nonreactive Nonreactive [facility] 04/08/2025 1:15 PM EDT 04/08/2025 4:03 PM EDT Generic External Data Provider LAB BLOOD ORDERAB LES Final Result Performing Organization Address [facility] Phone Number [facility] [address] [place] [phone] * (ABNORMAL) Protein Creatinine Ratio, Urine (04/08/2025 1:15 PM EDT) Creatinine, Urine 196.59 mg/dL [facility] Protein, Total, Random Urine 14(H) <12 mg/dL [facility] Protein/Creati nine Ratio, Ur 0.07 <0.2 [facility] Comment:The spot urine prote in:creatinine ratio may increase to 0.3during normal . 04/08/2025 1:15 PM EDT 04/08/2025 4:03 PM EDT Generic External Data Provider LAB URINE ORDERAB LES Final Result Performing Organization Address [facility] de Phone Number [facility] [address] [place] [phone] * (ABNORMAL) Urinalysis Complete (04/08/2025 1:15 PM EDT) Color Urine Yellow [facility] Appearance Urine Cloudy [facility] PH 5.5 5.0 - 9.0 [facility] Glucose Urine UA Negative Negative mg/dL [facility] Urine Blood Small (1+)(A) Negative [facility] Specific [place] - Urine 1.020 1.005 - 1.025 [facility] Urine Protein Trace Neg-Trace mg/dL [facility] Urine Ketones Trace Negative mg/dL [facility] Nitrite Urine Negative Negative [facility] Leukocyte Esterase Urine Large (3+)(A) Negative [facility] RBC Urine 0-2 0 - 2 /HPF [facility] Urine WBC >50(A) 0 - 5 /HPF [facility] Urine Squamous Epithelial Cell 11-20 0 - 2 /HPF [facility] Urine Bacteria 3+ None Seen [facility] Hyaline Casts, Urine 0-2 0 - 2 /LPF [facility] 04/08/2025 1:15 PM EDT 04/08/2025 4:03 PM EDT us Generic External Data Provider LAB URINE ORDERAB LES Final Result [facility] [address] [place] [address] [phone] * (ABNORMAL) CBC auto differential (04/08/2025 1:15 PM EDT) White Blood Count 9.7 4.8 - 10.8 X10*3/uL [facility] Red Blood Count 4.41 4.20 - 5.50 X10*6/uL [facility] Hemoglobin 12.7 12.0 - 16.0 g/dl [facility] Hematocrit 37.2 37.0 - 47.0 % [facility] Mean Corpuscular Volume 84.4 80.0 - 98.0 fL [facility] Mean Corpuscular Hemoglobin 28.8 27.0 - 33.0 pg [facility] Mean Corpuscular HGB Conc 34.1 31.0 - 35.0 g/dl [facility] Red Cell Distribution Width 13.7 11.0 - 16.0 % [facility] Platelet Count 253 160 - 400 X10*3/uL [facility] Mean Platelet Volume 10.2 9.4 - 12.3 fL [facility] Neutrophils Percent Auto 59.6 45 - 73 % [facility] Imm Gran Pct Auto 0.4 0.0 - 0.4 % [facility] Lymphocytes Percent Auto 27.9 20 - 40 % [facility] Monocytes Percent Auto 8.1 2 - 11 % [facility] Eosinophils Percent Auto 3.6 0 - 4 % [facility] Basophils Percent Auto 0.4 0 - 2 % [facility] NRBC Pct Auto 0.0 0.0 - 0.2 /100WBC [facility] Neutrophils Absolute Auto 5.8 2.0 - 8.3 x10*3/uL [facility] Imm Gran Abs Auto 0.04(H) 0.00 - 0.03 X10*3/uL [facility] Lymphocytes Absolute Auto 2.7 1.2 - 4.9 X10*3/uL [facility] Monocytes Absolute Auto 0.8 0.1 - 1.2 X10*3/uL [facility] Eosinophils Absolute Auto 0.4 0.0 - 0.4 X10*3/uL [facility] Basophils Absolute Auto 0.0 0.0 - 0.2 X10*3/uL [facility] NRBC Abs Auto 0.000 0.0 - 0.012 X10*3/uL [facility] 04/08/2025 1:15 PM EDT 04/08/2025 4:03 PM EDT us Generic External Data Provider LAB BLOOD ORDERAB LES Final Result [facility] [address] [place] [phone] [phone] * Calcium (04/08/2025 1:15 PM EDT) Calcium 8.9 8.4 - 10.2 mg/dL [facility] 04/08/2025 1:15 PM EDT 04/08/2025 4:03 PM EDT us Generic External Data Provider LAB BLOOD ORDERAB LES Final Result Performing Organization Address [facility] Co de Phone Number [facility] [address] [place] [phone] * Creatinine, Serum (04/08/2025 1:15 PM EDT) Creatinine, Serum 0.79 0.5 - 1.4 mg/dL [facility] Estimated Glomerular Filt Rate >60 [facility] Comment:Chronic Kidney Disea se: Estimated GFR < 60 mL/min/[id number] Kidney Disease: Estimated GFR < 15 mL/min/1.73m2 04/08/2025 1:15 PM EDT 04/08/2025 4:03 PM EDT us Generic External Data Provider LAB BLOOD ORDERAB LES Final Result Performing Organization Address [facility] Co de Phone Number [facility] [address] [place] [phone] * BUN (Blood Urea Nitrogen) (04/08/2025 1:15 PM EDT) Urea Nitrogen (BUN) 16 9 - 16 mg/dL [facility] 04/08/2025 1:15 PM EDT 04/08/2025 4:03 PM EDT us Generic External Data Provider LAB BLOOD ORDERAB LES Final Result Performing Organization Address [facility] Co de Phone Number [facility] [address] [place] [phone] * (ABNORMAL) Electrolyte Panel (04/08/2025 1:15 PM EDT) Sodium 138 135 - 145 mmol/L [facility] Potassium 3.5 3.3 - 5.1 mmol/L [facility] Chloride 106 96 - 108 mmol/L [facility] Carbon Dioxide 25 22 - 29 mmol/L [facility] Anion Gap 11(L) 12 - 20 [facility] 04/08/2025 1:15 PM EDT 04/08/2025 4:03 PM EDT us Generic External Data Provider LAB BLOOD ORDERAB LES Final Result [facility] [address] [place] [address] [phone] documented in this encounter Visit Diagnoses Not on filedocumented in this encounter Additional Health Concerns Assessment Noted Time PHQ-9 Depression Total Score: 13 10/26/ 025 12:01 PM EDT documented as of this encounter Care Teams Welder Gas Tungsten Arc Relationship Specialty Start Date End Date Vivien Ohara MD [address] [place] [phone] PCP - General Family Medicine 08/19/23 documented as of this encounter
--- OUTSIDE RECORDS SUMMARY | 2025-04-09 17:28 | XMS_ITS | Encounter Summary ---
Author Organization [employer] Address [address] [facility] 7t [place] [address] Care Team Providers Care Bomb Squad Commander Name Role Phone Vivien Ohara MD Primary Care Provider [phone] Reason for Visit * Reason Comments Med Refill Encounter Details Date Type Department Care Team ([facility] st Contact Info) Description 05/14/2024 Refill [facility] [address] [place], [place] [phone] Vivien Ohara MD [address] [place], [place] [phone] Mild intermittent asthma with acute exacerbation Social [...] Description 05/04/2025 3:30 PM EDT Office Visit [facility] [address] [place] [phone] Vivien Ohara MD [address] [place] [address] documented as of this encounter Visit Diagnoses Diagnosis Mild intermittent asthma with acute exacerbation documented in this encounter Additional Health Concerns Assessment Noted Time PHQ-9 Depression Total Score: 0 03/14/20 23 1:40 PM EDT documented as of this encounter Care Teams Bomb Squad Commander Relationship Specialty Start Date End Date Vivien Ohara MD [address] [place] [address] [phone] PCP - General Family Medicine 08/19/23 documented as of this encounter
--- OUTSIDE RECORDS SUMMARY | 2025-04-09 17:28 | XMS_ITS | Encounter Summary ---
Author Organization [employer] Address [address] [facility] [address] 7t [place] [address] Care Team Providers Care Product Design Specialist Name Role Phone Lakeisha Yadav NP Primary Care Provider [phone] Vivien Ohara MD Primary Care Provider [phone] Reason for Visit * Reason Comments Med Refill Encounter Details Date Type Department Care Team ([facility] st Contact Info) Description 08/17/2023 Refill [facility] [address] [place] [address] Name, MD Dylon [address] [place] [address] Mild intermittent asthma with acute exacerbation Social [...] Description 05/04/2025 3:30 PM EDT Office Visit [facility] [address] [place] [phone] Vivien Ohara MD [address] [place] [address] documented as of this encounter Visit Diagnoses Diagnosis Mild intermittent asthma with acute exacerbation documented in this encounter Additional Health Concerns Assessment Noted Time PHQ-9 Depression Total Score: 0 03/14/20 23 1:40 PM EDT documented as of this encounter Care Teams Product Design Specialist Relationship Specialty Start Date End Date Lakeisha Yadav NP [address] [place] [address] PCP - General Family Medicine 05/03/23 08/18/23 Vivien Ohara MD [address] [place] [address] PCP - General Family Medicine 08/19/23 documented as of this encounter
--- OUTSIDE RECORDS SUMMARY | 2025-04-09 17:28 | XMS_ITS | Encounter Summary ---
Author Organization [employer] Address [address] [facility] 7t [place] [address] Care Team Providers Care Access Clerk Name Role Phone Vivien hOara MD Primary Care Provider [phone] Encounter Details Date Type Department Care Team ([facility] st Contact Info) Description 02/19/2025 Orders Only [facility] 230 [place], [place] [phone] Vivien Ohara MD 230 [place] [address] Type 2 diabetes mellitus without complication, without long-term current use of insulin ([facility]) (Primary Dx) Social History Tobacco Use Types [...] Description 05/04/2025 3:30 PM EDT Office Visit [facility] [address] [place] [address] Vivien Ohara MD [address] [place] [address] documented as of this encounter Visit Diagnoses Diagnosis Type 2 diabetes mellitus without complication, without long-term current use of insulin ([facility])- Primary documented in this encounter Additional Health Concerns Assessment Noted Time PHQ-9 Depression Total Score: 13 025 12:01 PM EDT documented as of this encounter Care Teams Access Clerk Relationship Specialty Start Date End Date Vivien Ohara MD [address] [place] [phone] PCP - General Family Medicine 08/19/23 documented as of this encounter
--- OUTSIDE RECORDS SUMMARY | 2025-04-09 17:28 | XMS_ITS | Encounter Summary ---
Author Organization [employer] Address 75 [facility] 7t [place] [address] Care Team Providers Care Machine Heel Seat Fitter Name Role Phone Vivien Ohara MD Primary Care Provider [phone] Encounter Details Date Type Department Care Team ([facility] Contact Info) Description 02/19/2025 Orders Only [facility] [address] [place], [place] [phone] Vivien Ohara MD [address] [place] [address] Social History Tobacco Use Types Packs/Day Years [...] Description 05/04/2025 3:30 PM EDT Office Visit [facility] [address] [place] [address] Vivien Ohara MD [address] [place] [address] documented as of this encounter Visit Diagnoses Not on filedocumented in this encounter Additional Health Concerns Assessment Noted Time PHQ-9 Depression Total Score: 13 025 12:01 PM EDT documented as of this encounter Care Teams Machine Heel Seat Fitter Relationship Specialty Start Date End Date Vivien Ohara MD [address] [place], [place] [phone] PCP - General Family Medicine 08/19/23 documented as of this encounter
--- OUTSIDE RECORDS SUMMARY | 2025-04-09 17:28 | XMS_ITS | Clinical Summary ---
Author Organization [employer] Address [address] [facility] [address] [place] [address] Care Team Providers Care Buckle And Button Maker Name Role Phone Vivien Ohara MD Primary Care Provider [phone] Allergies Active Allergy Reactions Criticality Noted Date [...] 023 Active Blood Glucose Monitoring Suppl (FreeStyle [place] Lite) w/Device kit TEST BLOOD SUGAR [...] without long-term current use of insulin ([facility]) TEST BLOOD SUGAR THREE TIMES DAILY DIRECTED 100 each 5 Active FREESTYLE LITE test stripIndications :Type 2 diabetes mellitus without complication, without long-term current use of insulin ([facility]) TEST BLOOD SUGAR THREE TIMES DAILY [...] without long-term current use of insulin ([facility]) Inject 0.5 mg under the skin 1 (one) time per week. 3 mL 11 Active metFORMIN XR (Glucophage-XR) 500 MG 24 hr tablet Take 1 tablet (500 mg) by mouth 2 times daily. 180 tablet 3 Active omeprazole (PriLOSEC) [address] capsule TAKE 1 CAPSULE BY MOUTH EVERY DAY 90 capsule 1 Active Blood Glucose Monitoring Suppl (ChartsNow (now MusicQubed)Style [place] Lite) w/Device kitIndications:T ype 2 diabetes mellitus without complication, without long-term current use of insulin ([facility]) Use to test blood sugar 3 times daily 1 kit 025 Active Blood Pressure kitIndications:H ypertension, unspecified type 1 each Once per day. Use to check blood pressure once daily 1 kit Active Continuous Glucose Direct Marketing Intern (FreeStyle [place]) deviceIndication s:Type 2 diabetes mellitus without complication, without long-term current use of insulin ([facility]) 1 each Once per day. Use as [...] (02/14/2025 2:49 PM EDT): - Following with [facility] urology, last seen 02/01/2025 - Most recent [...] EDT): - Following up with neurologist at [facility], appointment today 02/01/2025 - Previously recommended bladder [...] 8:44 AM EDT): - previously seen by [facility] Urologist -was recommended bladder suspension surgery -pt has both stress and urge incontinence -will refer back to Urologist -discussed about possible side effects including urinary problem with new medication for type 2 diabetes and pt verbalize understanding Assessment & Plan (05/13/2024 1:54 PM EDT): - previously seen by [facility] Urologist -was recommended bladder suspension surgery -pt has both stress and urge incontinence -will refer back to Urologist -discussed about possible side effects including urinary problem with new medication for type 2 diabetes and pt verbalize understanding Assessment & Plan (01/16/2024 11:23 AM EDT): - previously seen by [facility] Urologist -was recommended bladder suspension surgery [...] TDap/Td: 03/02/2011, states she had repeat in [place]. No records. Will task MA to try and locate [place] records Foot exam/peripheral pulses: WNL 10 on [...] - foot exam: 10/26/24 - eye exam: [facility] eye care Apr 2024, no diabetic [...] - foot exam: 10/26/24 - eye exam: [facility] eye care Apr 2024, no diabetic [...] visit - eye exam: referred again to [facility] eye care - microalbumin: Apr 2022, [...] numbness - eye exam: referred again to [facility] eye care - microalbumin: Apr 2022, [...] numbness - eye exam: referred again to [facility] eye care - microalbumin: Apr 2022, [...] check RAST or referral to allergy / radiological health specialist Assessment & Plan (10/06/2023 5:02 PM EDT): - continue cetirizine, montelukast, and Fluticasone nasal (Flonase) - check RAST or referral to allergy / radiological health specialist Dyslipidemia 10/31/2012 Assessment & Plan (02/14/2025 [...] (02/14/2025 2:55 PM EDT): - followed by sider mechanic, Dr. Awad, [facility], last seen on 10/15/24, advised to reschedule a follow up appointment - last PFT in November 2024 - continue mometasone (Asmanex) as maintenance - continue montelukast - continue albuterol neb and HFA prn Assessment & Plan (10/29/2024 10:08 AM EDT): - followed by sider mechanic, Dr. Awad, [facility], last seen on 10/15/24 - continue mometasone [...] can receive CPAP. Recommended to contact her director of medicare from [facility] if she has difficulty Assessment & Plan (10/29/2024 10:07 AM EDT): - sleep study at [facility] on 03/06/23 - report recommends in-lab for titration study or auto-PAP 6-20 cm H2O - script for AutoPAP was written in September 2023, still does not have one - recently seen by sider mechanic, and re-ordered sleep study / CPAP Assessment & Plan (05/13/2024 1:54 PM EDT): - sleep study at [facility] on 03/06/23, ordered by previous PCP - report recommends in-lab for titration study or auto-PAP 6-20 cm H2O - script for AutoPAP was written in September 2023, will check up on that Assessment & Plan (01/16/2024 11:20 AM EDT): - sleep study at [facility] on 03/06/23, ordered by previous PCP - report recommends in-lab for titration study or auto-PAP 6-20 cm H2O - script for AutoPAP was written in September 2023, will check up on that Assessment & Plan (10/06/2023 4:49 PM EDT): - sleep study at [facility] on 03/06/23, ordered by previous PCP [...] DEPARTMENT Provider, Generic External Data 03/16/2025 Refill [facility] [address] [place] [address] Vivien Ohara MD Multinodular goiter; Primary hypertension 03/03/2025 Refill [facility] [address] [place] [address] Vivien Ohara MD 02/23/[address] [address] Vivien Ohara MD Telephone Call 02/19/2025 Orders Only [address] [address] Vivien Ohara MD Type 2 diabetes mellitus without complication, without long-term current use of insulin ([facility]) (Primary Dx) 02/19/2025 Orders Only [facility] [address] [place] [address] Vivien Ohara MD 02/18/[address] [address] Vivien Ohara MD Hypertension, unspecified type; Type 2 diabetes mellitus without complication, without long-term current use of insulin ([facility]) 02/18/[address] [address] Vivien Ohara MD Durable Medical Equipment 02/10/2025 Refill [facility] [address] [place] [address] Vivien Ohara MD 02/01/2025 3:00 PM EDT Office Visit [address] [address] Vivien Ohara MD Hypertension, unspecified type (Primary Dx); Type 2 diabetes mellitus without complication, without long-term current use of insulin ([facility]); Dyslipidemia; Hypothyroidism, unspecified type; Vitamin D deficiency; Mixed stress and urge urinary incontinence; Mild intermittent asthma without complication; Skin lesions; Class 2 severe obesity due to excess calories with serious comorbidity and body mass index (BMI) of 39.0 to 39.9 in adult ([facility]); Kidney stone; Obstructive sleep apnea syndrome 02/01/2025 Orders Only GENERIC EXTERNAL DATA DEPARTMENT Provider, Generic External Data 02/01/2025 Travel 01/28/[address] [address] Vivien Ohara MD chart prep from Last [...] Description 05/04/2025 3:30 PM EDT Office Visit [facility] [address] [place] [address] Vivien Ohara MD [address] [place] [address] Health Maintenance Due Date Last Done Comments CT Colonography 1960 Colonoscopy 1960 Colorectal Cancer Screening 1960 FIT DNA/Cologuard 1960 FIT 1960 FOBT 1960 Sigmoidoscopy 1960 Pneumococcal Vaccine: 50+ Years (2 of 2 - PCV) 04/17/2007 04/17/2006, 04/17/2006 Zoster Vaccines (1 of 2) 2009 RSV Patients and Patients Aged 60 years or older (1 - Risk 60-74 years 1-dose series) 2019 COVID-19 Vaccine ( - season) 2025 Influenza Vaccine (#1) 2025 05/25/2013 Depression Monitoring 04/27/2025 10/26/2024, 025 Diabetes: Hemoglobin A1C 05/04/2025 025, 09/22/2024, 05/13/2024, Additional history exists Lipid Panel 05/13/2025 05/13/2024, 05/04/2022 Diabetes: Foot Exam 10/26/2025 10/26/2024, 10/26/2024, 10/26/2024, Additional history exists Mammogram 01/06/2026 01/07/2024 Alcohol/Substance Use Screening 02/01/2026 02/01/2025 SDOH Screening 02/01/2026 02/01/2025 Tobacco Screening 02/14/2026 02/14/2025 Diabetes: Urine Protein Screening 04/08/2026 04/08/2025, 05/01/2022 Eye Exam 04/30/2026 04/30/2024, 09/2023, 04/30/2024, Additional history exists DTaP/Tdap/Td Vaccines (3 - Td or Tdap) 01/15/2034 01/16/2024, 03/02/2011, 01/28/2001 Hepatitis B Vaccines Completed 04/26/2015, 11/02/2014, 08/31/2014 Hepatitis C Screening Completed 04/08/2025 HIB Vaccines Aged Out No longer eligi [...] Procedure Name Priority Date/Time Associated Diagnosis Comments HEPATITIS B SURFACE ANTIGEN (NON ORDERABLE) Routine 04/08/2025 1:15 PM EDT PROTEINASE-3 ANTIBODY Routine 04/08/2025 1:15 PM EDT MYELOPEROXIDASE ANTIBODY (MPO) Routine 04/08/2025 1:15 PM EDT GLOMERULAR BASEMENT MEMBRANE ANTIBODY (IGG) Routine 04/08/2025 1:15 PM EDT DNA (DS) ANTIBODY Routine 04/08/2025 1:1 5 PM EDT HEPATITIS C AB W/REFL TO HCV RNA, QN, PCR Routine 04/08/2025 1:15 PM EDT HEPATITIS B CORE AB TOTAL Routine 04/08/2025 1:15 PM EDT PROTEIN CREATININE RATIO, URINE Routine 04/08/2025 1:15 PM EDT URINALYSIS, COMPLETE [...] without long-term current use of insulin (CMS/HCC) POCT GLYCOSYLATED HEMOGLOBIN (HGB A1C) Routine 02/01/2025 3:19 PM EDT Type 2 diabetes mellitus without complication, without long-term current use of insulin (CMS/HCC) LIPID PANEL WITH REFLEX TO DIRECT LDL Routine 05/13/2024 11:00 AM EDT Type 2 diabetes mellitus without complication, without long-term current use of insulin (CMS/HCC) Hypertension, unspecified type BI MAMMOGRAM SCREENING TOMOSYNTHESIS BILATERAL Routine 01/07/2024 12:55 PM EDT from Last 3 Months or Most Recently Relevant to Health Maintenance Results * Hepatitis B Surface Antigen (04/08/2025 1:15 PM EDT) Hepatitis B Surface Ag NEGATIVE Negative [facility] 04/08/2025 1:15 PM EDT 04/08/2025 4:03 PM EDT Generic External Data Provider HISTORICAL/NON OR DERABLE LABS Final Result Performing Organization Address [facility] Co de Phone Number [facility] [address] [place] [phone] * (ABNORMAL) Protein Creatinine Ratio, Urine (04/08/2025 1:15 PM EDT) Creatinine, Urine 196.59 mg/dL [facility] Protein, Total, Random Urine 14(H) <12 mg/dL [facility] Protein/Creati nine Ratio, Ur 0.07 <0.2 [facility] Comment:The spot urine prote in:creatinine ratio may increase to 0.3during normal . 04/08/2025 1:15 PM EDT 04/08/2025 4:03 PM EDT Generic External Data Provider LAB URINE ORDERAB LES Final Result Performing Organization Address [facility] Co de Phone Number [facility] [address] [place] [phone] * Creatinine, Serum (04/08/2025 1:15 PM EDT) Creatinine, Serum 0.79 0.5 - 1.4 mg/dL [facility] Estimated Glomerular Filt Rate >60 [facility] Comment:Chronic Kidney Disea se: Estimated GFR < 60 mL/min/1.05b9Rlrjka Kidney Disease: Estimated GFR < 15 mL/min/1.73m2 04/08/2025 1:15 PM EDT 04/08/2025 4:03 PM EDT us Generic External Data Provider LAB BLOOD ORDERAB LES Final Result [facility] [address] [place] [phone] * (ABNORMAL) CBC auto differential (04/08/2025 1:15 PM EDT) White Blood Count 9.7 4.8 - 10.8 X10*3/uL [facility] Red Blood Count 4.41 4.20 - 5.50 X10*6/uL [facility] Hemoglobin 12.7 12.0 - 16.0 g/dl [facility] Hematocrit 37.2 37.0 - 47.0 % [facility] Mean Corpuscular Volume 84.4 80.0 - 98.0 fL [facility] Mean Corpuscular Hemoglobin 28.8 27.0 - 33.0 pg [facility] Mean Corpuscular HGB Conc 34.1 31.0 - 35.0 g/dl [facility] Red Cell Distribution Width 13.7 11.0 - 16.0 % [facility] Platelet Count 253 160 - 400 X10*3/uL [facility] Mean Platelet Volume 10.2 9.4 - 12.3 fL [facility] Neutrophils Percent Auto 59.6 45 - 73 % [facility] Imm Gran Pct Auto 0.4 0.0 - 0.4 % [facility] Lymphocytes Percent Auto 27.9 20 - 40 % [facility] Monocytes Percent Auto 8.1 2 - 11 % [facility] Eosinophils Percent Auto 3.6 0 - 4 % [facility] Basophils Percent Auto 0.4 0 - 2 % [facility] NRBC Pct Auto 0.0 0.0 - 0.2 /100WBC [facility] Neutrophils Absolute Auto 5.8 2.0 - 8.3 x10*3/uL [facility] Imm Gran Abs Auto 0.04(H) 0.00 - 0.03 X10*3/uL [facility] Lymphocytes Absolute Auto 2.7 1.2 - 4.9 X10*3/uL [facility] Monocytes Absolute Auto 0.8 0.1 - 1.2 X10*3/uL [facility] Eosinophils Absolute Auto 0.4 0.0 - 0.4 X10*3/uL [facility] Basophils Absolute Auto 0.0 0.0 - 0.2 X10*3/uL [facility] NRBC Abs Auto 0.000 0.0 - 0.012 X10*3/uL [facility] 04/08/2025 1:15 PM EDT 04/08/2025 4:03 PM EDT us Generic External Data Provider LAB BLOOD ORDERAB LES Final Result Performing Organization Address City/[facility]/ZIP Co de Phone Number [facility] [address] [place] [phone] * Hepatitis C Antibody with Reflex to HCV, RNA, Quantitative, Real-Time PCR (04/08/2025 1:15 PM EDT) Hepatitis C Antibody Nonreactive Nonreactive [facility] Comment:Antibodies to HCV no t detected; does not exclude early acuteHCV infection. 04/08/2025 1:15 PM EDT 04/08/2025 4:03 PM EDT us Generic External Data Provider LAB BLOOD ORDERAB LES Final Result Performing Organization Address City/[facility]/ZIP Co de Phone Number [facility] [address] [place] [phone] * Hepatitis B Core Antibody, Total (04/08/2025 1:15 PM EDT) Hepatitis B Core Antibody Nonreactive Nonreactive [facility] 04/08/2025 1:1 5 PM EDT 04/08/2025 4:03 PM EDT Generic External Data Provider LAB BLOOD ORDERAB LES Final Result Performing Organization Address [facility]/ZIP Co de Phone Number [facility] [address] [place] [phone] * (ABNORMAL) Urinalysis Complete (04/08/2025 1:15 PM EDT) Color Urine Yellow [facility] Appearance Urine Cloudy [facility] PH 5.5 5.0 - 9.0 [facility] Glucose Urine UA Negative Negative mg/dL [facility] Urine Blood Small (1+)(A) Negative [facility] Specific [place] - Urine 1.020 1.005 - 1.025 [facility] Urine Protein Trace Neg-Trace mg/dL [facility] Urine Ketones Trace Negative mg/dL [facility] Nitrite Urine Negative Negative [facility] Leukocyte Esterase Urine Large (3+)(A) Negative [facility] RBC Urine 0-2 0 - 2 /HPF [facility] Urine WBC >50(A) 0 - 5 /HPF [facility] Urine Squamous Epithelial Cell 11-20 0 - 2 /HPF [facility] Urine Bacteria 3+ None Seen [facility] Hyaline Casts, Urine 0-2 0 - 2 /LPF [facility] 04/08/2025 1:15 PM EDT 04/08/2025 4:03 PM EDT us Generic External Data Provider LAB URINE ORDERAB LES Final Result Performing Organization Address [facility]/ZIP Co de Phone Number [facility] [address] [place] [phone] * BUN (Blood Urea Nitrogen) (04/08/2025 1:15 PM EDT) Urea Nitrogen (BUN) 16 9 - 16 mg/dL [facility] 04/08/2025 1:15 PM EDT 04/08/2025 4:03 PM EDT Generic External Data Provider LAB BLOOD ORDERAB LES Final Result Performing Organization Address [facility] Co de Phone Number [facility] [address] [place] [phone] * Calcium (04/08/2025 1:15 PM EDT) Pathologist [facility] Calcium 8.9 8.4 - 10.2 mg/dL [facility] 04/08/2025 1:15 PM EDT 04/08/2025 4:03 PM EDT Generic External Data Provider LAB BLOOD ORDERAB LES Final Result Performing Organization Address [facility] de Phone Number [facility] [address] [place] [phone] * (ABNORMAL) Electrolyte Panel (04/08/2025 1:15 PM EDT) Pathologist [facility] Sodium 138 135 - 145 mmol/L [facility] Potassium 3.5 3.3 - 5.1 mmol/L [facility] Chloride 106 96 - 108 mmol/L [facility] Carbon Dioxide 25 22 - 29 mmol/L [facility] Anion Gap 11(L) 12 - 20 [facility] 04/08/2025 1:15 PM EDT 04/08/2025 4:03 PM EDT Generic External Data Provider LAB BLOOD ORDERAB LES Final Result Performing Organization Address [facility] Co de Phone Number [facility] [address] [place] [phone] * Cytopath-cell enhanced (02/01/2025 5:02 PM EDT) 02/01/2025 5:02 PM EDT 02/02/2025 9:12 AM EDT [facility] - 02/02/2025 4:06 PM EDT ----- ------- Name: Lia Deleon Age/Sex: 65/F : 1960 Unit#: [id number] Attend Dr: Nikunj Simon MD Re02/01/25 Status: [facility]: ----- ------- SPEC : [id number] RECD: 02/02/25 STATUS: KATARZYNA HAT[place] NUM: [id number] LORNA: 02/01/25-[address] [facility] [address]: Nikunj Simon MD ENTERED: 02/02/25-1029 SP TYPE: Cytology [facility] DR: Vivien Ohara MD ORDERED: Cyto-enhanced Diagnosis [...] developed and their performance characteristics determined by [facility]. They have not been cleared or approved by the U.S. Food and Drug Administration (FDA). However, the FDA has determined that such clearance or approval is not necessary. This laboratory is certified under the Clinical Laboratory Improvement Amendments of 1988 (CLIA) as qualified to perform high complexity clinical laboratory testing. Copies To: Nikunj Simon MD [facility] [address] [place] [address] [address] [place] [address] [email or web address] Vivien Ohara MD [address] [address] CONTINUED ON NEXT PAGE ----- ------- Name: Lia Deleon Age/Sex: 65/F : 1960 Unit#: [id number] Attend Dr: Nikunj Simon MD Re02/01/25 Status: [facility] REF Location: [facility] Disch: ----- ------- SPEC : [id number] RECD: 02/02/25 STATUS: KATARZYNA [place] NUM: [id number] LORNA: 02/01/[address] [facility] [address]: Nikunj Simon MD ENTERED: 02/02/25-1030 SP TYPE: Cytology [facility] DR: Vivien Ohara MD ORDERED: Cyto-enhanced ----- ------- Signed (signature on file) Bella Darnell MD 02/02/25 1606 ----- ------- END OF REPORT Generic External Data Provider LAB CYTOLOGY ORDE RABLES Final Result [facility] [address] [place], [place] [phone] * POCT glucose manually resulted (02/01/2025 3:20 PM EDT) Pathologist [facility] Glucose Blood, POC 140 60 - 200 mg/dL QC Media Lot # [id number] Lot# Expiration Date Blood Capillary blood specimen / Unknown 02/01/2025 3:20 PM EDT Vivien Ohara MD POINT OF CARE TEST ENTER/EDIT OR DERABLES Final Result * (ABNORMAL) POCT glycosylated hemoglobin (Hgb A1c) (02/01/2025 3:19 PM EDT) Pathologist [facility] Hemoglobin A1C 8.1(A) 4.0 - 5.7 % QC Media Lot # [id number] Lot# Expiration Date [id number] Blood Capillary blood specimen / Unknown 02/01/2025 3:19 PM EDT Vivien Ohara MD POINT OF CARE TEST ENTER/EDIT OR DERABLES Final Result * (ABNORMAL) Lipid Panel with Reflex to Direct LDL (05/13/2024 11:00 AM EDT) Triglycerides 200(H) <150 mg/dL [facility] Comment:Desirable Triglyceri de: less than 150 mg/dLBorderline High Triglyceride 150-199 mg/dLHigh Triglyceride: 200-499 mg/dLVery High Triglyceride: greater than or equal to 5OO mg/dL Cholesterol 180 <200 mg/dL [facility] Comment:Desirable Cholestero l: less than 200 mg/dLBorderline High Cholesterol: 200-239 mg/dLHigh Cholesterol: greater than 239 mg/dL LDL Cholesterol Calculated 95 <100 mg/dL [facility] Comment:Desirable LDL: less than 100 mg/dLNear Optimal/Above Optimal LDL: 110- 129 mg/dLBorderline High LDL: 130-159 mg/dLHigh LDL: 160-189 mg/dLVery High LDL: greater than or equal to 190 mg/dL HDL Cholesterol 45 >40 mg/dL [facility] Comment:Desirable HDL: great er than 40 mg/dL Note: This HDL assay may give artificially low results in patients with liver disease. Blood 05/13/2024 11:0 0 AM EDT 05/13/2024 11:37 AM EDT Vivien Ohara MD LAB BLOOD ORDERABLES Final Resul t [facility] [address] [place] [phone] * BI Mammogram Screening Tomosynthesis Bilateral (01/07/2024 12:55 PM EDT) Anatomical Region Laterality Modality Breast Bilateral Mammography 01/07/2024 12:5 5 PM EDT Narrative 02/06/2024 9:41 AM EDT [address] [place] [address] Mammography Report Signed Patient: Lia Deleon MR#: [id number] 910 : 1960 Acct:[id number] Age/Sex: 63 / F ADM Date: 01/07/24 Loc: HO.MAMMO Attending Dr: Vivien Ohara MD Ordering Physician: Vivien Ohara MD Results: 1Negative Date of Service: 01/07/24 Follow Up: 1 Year From Orig ina Mammogram Procedure(s): MM tomosynthesis screening BI Accession Number(s): [id number] cc: Vivien Ohara MD EXAMINATION: MM SCREENING [...] in OV> 02/06/24 0937 DD/ 1255 TD/TT: [employer] Crm Developer: Procedure Note Donotuseinterpreter, Image - 02/06/[address] [place] [address] Mammography Report Signed Patient: Lia DeleonMR#: [id number] 910 : 1960cct:[id number] Age/Sex: 63 / FADM Date: 01/07/24 Loc: HO.ELENIO Attending Dr: Vivien Ohaar MD Ordering Physician: Vivien Ohara MDResults: 1Negative Date of Service: 01/07/24Follow Up: 1 Year From Orig ina Mammogram Procedure(s): MM tomosynthesis screening BI Accession Number(s): [id number] cc: Vivien Ohara MD EXAMINATION: MM SCREENING [...] in OV> 02/06/24 0937 DD/ 1255 TD/TT: Siebel Crm Developer: Vivien Ohara MD IMG BI PROCEDURES Final Result from Last 3 Months or Most Recently Relevant to Health Maintenance Insurance [facility] NURSING HOME OPTIONS (O D-SNP) Care Teams Buckle And Button Maker Relationship Specialty Start Date End Date Vivien Ohara MD [address] [place] [address] PCP - General Family Medicine 08/19/23
== END 2025-04-09 15:10 | disposition home or self-care (01) ==
LOC: HO.HKA 14:47
PROVIDERS: PCP Family Medicine; Visit Provider Internal Medicine Nephrology
DX: R31.29 Other microscopic hematuria (principal); I10 Essential (primary) hypertension; N20.0 Calculus of kidney; R80.8 Other proteinuria
CPT/HCPCS: 99214

== ENCOUNTER → 2025-04-09 14:47 | Outpatient (BNVA) | payer OTHER, SELFPAY | PROVIDERS: PCP Family Medicine; Visit Provider Internal Medicine Nephrology | DX: I10 Essential (primary) hypertension (principal); N20.0 Calculus of kidney; R80.8 Other proteinuria; R31.29 Other microscopic hematuria | CPT/HCPCS: 99212 ==

== ENCOUNTER 2025-04-12 16:02 | Outpatient (AMB) | payer OTHER, SELFPAY ==
--- NOTE | 2025-04-12 16:03 | MHC.OFFVIS ---
Intake Visit Reasons: 10w new medication Intake Note: Patient is present via telehealth for a 10w/new medication Urology Medication:macrobid Antibiotic Allergy:penicilliins, sulfa Blood Thinner:none Bill Clerk Required: No Allergies penicillin V Allergy (Unknown, Verified 04/12/25 16:03) Anaphylaxis Penicillins Allergy (Unknown, Verified 04/12/25 16:03) Rash Sulfa (Sulfonamide Antibiotics) Allergy (Unknown, Verified 04/12/25 16:03) Anaphylaxis sulfamethoxazole Allergy (Unknown, Verified 04/12/25 16:03) rash trimethoprim Allergy (Unknown, Verified 04/12/25 16:03) rash Medication List - Last Reconciled 04/12/25 by Nikunj Simon MD albuterol sulfate mg inhalation QID PRN amlodipine 5 mg PO DAILY aspirin 81 mg PO QAM cetirizine 10 mg PO DAILY PRN cholecalciferol (vitamin D3) (Vitamin D3) 25 mcg PO DAILY dapagliflozin propanediol (Farxiga) 10 mg PO DAILY epinephrine IM fenofibrate 54 mg PO DAILY fluticasone furoate 100 mcg/actuation (Arnuity Ellipta) inhalation DAILY fluticasone propionate 50 mcg/actuation intranasal gabapentin 100 mg PO TID PRN lancets (TRUEplus Lancets) As directed levothyroxine 50 mcg PO DAILY lidocaine 5% 1 patch topical DAILY PRN metformin ER 1,000 mg PO BID omeprazole 40 mg PO DAILY semaglutide (Ozempic) mg subcut tizanidine 2 mg PO TID vibegron (Gemtesa) 75 mg PO DAILY HPI Comments Details: 04/12/25-- History of Present Illness The patient is a 65-year-old female presenting for a follow-up telehealth visit. FU OAB, Microscopic hematuria, kidney stones The patient has a history of kidney stones and overactive bladder. She was previously managed with Tolterodine but was started on Gemtesa on 02/01/25 to address her urinary symptoms. The patient reports that Gemtesa is working better than Tolterodine, although she still experiences urgency and occasional leakage, necessitating the use of pads during the day. She needs to long to the bathroom frequently, but overall, her symptoms have improved during the day. Results: Office cystoscopy, 05/27/24 was notable for mild inflammatory changes consistent with cystitis. CT abdomen and pelvis without IV contrast 11/06/23, kidneys within normal limits negative for kidney stones or masses. Plan 1. Cystitis 2. Overactive Bladder - Gemtesa 75 mg prescribed, showing improvement over Tolterodine. - Patient advised to continue current medication and report any changes in symptoms. 3. right kidney stone- fu renal sono 02/01/25--Lia is a 64-year-old female who has been evaluated for microscopic hematuria. w/u -including CTAP 11/06/2023 and office cystoscopy negative for malignancy. Office cystoscopy consistent with cystitis Last visit 11/23/2024-urine was sent for cytology came back negative on detrol for OAB FU renal US- 12/17/2024 question 3 mm stone, right kidney History of Present Illness - The patient is a 65-year-old female presenting with microscopic hematuria and overactive bladder symptoms. - Microscopic hematuria was evaluated with a CT scan of the abdomen and pelvis on 11/06/23, which was negative for urinary tract masses. - Office cystoscopy was negative for abnormal lesions, with findings consistent with cystitis. - Overactive bladder symptoms include frequent urination at night every two hours. - A renal ultrasound on 12/17/24 suggested a possible 3 mm stone in the right kidney. - Urinalysis showed 3+ blood and leukocytes, with a trace of protein. - The patient has been on Tolterodine for overactive bladder but reports inadequate symptom control. - No history of diuretic use, but the patient is on medication for diabetes. Results - Renal ultrasound on 12/17/24: Possible 3 mm stone in the right kidney. - Urinalysis today 02/01/25: 3+ blood, leukocytes, trace protein. 11/23/24--Lia is a 64-year-old female who has been evaluated for microscopic hematuria. She was seen last in the office April 2024. Office cystoscopy, 05/27/24 was notable for mild inflammatory changes consistent with cystitis. CT abdomen and pelvis without IV contrast 11/06/23, kidneys within normal limits negative for kidney stones or masses.The patient also had overactive bladder symptoms and was prescribed tolterodine. She was counseled on use of cranberry tablets importance of adequate hydration. She is here for follow-up. She states the tolterodine is working well for her bladder control. She complains of vaginal itching. Diabetes comorbidity. I will prescribe Lotrisone cream. I have discussed continued use of cranberry supplements and we will continue tolterodine 4 mg daily. She also complains of back pain. We will check renal ultrasound. Urinalysis today leukocytes 2+ blood 3+ glucose 1+. Urine will be sent for culture and cytology. 05/27/24--FU microscopic hematuria. Urine cytology sent on 04/16/24-- No malignant cells. Here for offie cystoscopy. Cystoscopy findings: Mild inflammatory changes consistent with cystitis, no suspicious bladder lesions visualized. 04/16/24--Lia is here with complaints of urinary incontinence and urinary frequency. She states that she has had UTIs in the past. Urinalysis-microscopic hematuria. I reviewed CT abdomen and pelvis without IV contrast 11/06/23, kidneys within normal limits negative for kidney stones or masses. I have discussed further evaluation with cystoscopy, and urine for cytology. Will trial anticholinergic tolterodine 4 mg daily. I have also recommended cranberry tablets daily. [facility] Medical History Pulmonary fibrosis Asthma DONA (obstructive sleep apnea) Obesity (BMI 30-39.9) Gastritis Social History Patient Tobacco Use Status: Never used Tobacco Review of Systems Const All systems reviewed & are unremarkable except as noted in HPI and below Reports no additional complaints Eyes Reports no additional complaints ENT Reports no additional complaints Card Reports no additional complaints Resp Reports no additional complaints GI Reports no additional complaints Reports as per HPI Musc Reports no additional complaints Skin/Breast Reports system reviewed and no additional complaints, except as documented Neuro Reports no additional complaints Psych Reports no additional complaints Endo Reports no additional complaints Lloyd/Lymph Reports no additional complaints Aller/Immun Reports no additional complaints Telehealth Telehealth [facility] Location of provider rendering services: practice address Location of patient: address on file Patient Identification confirmed using: Name, : Yes Telehealth method: video Patient verbally consented to treatment: Yes Patient verbally consented to billing insurance company: Yes Patient informed of any privacy concerns related to visit: Yes Assessment & Plan Assessment & Plan (1) Microscopic hematuria: Code(s): R31.29 - Other microscopic hematuria Category: Medical (2) Renal calculi: Code(s): N20.0 - Calculus of kidney Category: Medical (3) Proteinuria: Comment: referred to Nephrology Code(s): R80.9 - Proteinuria, unspecified Category: Medical Qualifiers: Proteinuria type: other Qualified Code(s): R80.8 - Other proteinuria (4) OAB (overactive bladder): Code(s): N32.81 - Overactive bladder Category: Medical Plan Plan 1. Cystitis 2. Overactive Bladder - Gemtesa 75 mg prescribed, showing improvement over Tolterodine. - Patient advised to continue current medication and report any changes in symptoms. 3. right kidney stone- fu renal sono Orders: Orders US renal BI 5 Months N20.0 - Calculus of kidney, R31.29 - Other microscopic hematuria Scribe Plan - Not visible on output: Patient was informed and verbally consented to the use of an ambient scribe for clinic note documentation during this visit. Coding Level of Care Code Tele Est Pt Level 4 (70932) Complex EM visit Add On G2211 Diagnoses Microscopic hematuria R31.29 Renal calculi N20.0 Other proteinuria R80.8 Proteinuria type: other OAB (overactive bladder) N32.81
--- OUTSIDE RECORDS SUMMARY | 2025-04-12 21:14 | XMS_ITS | Encounter Summary ---
Author Organization [employer] Address [address] [facility] 7t [place] [address] Care Team Providers Care Phlebotomist Prn Name Role Phone Kandi VanessaP Primary Care Provider Lakeisha Barclay NP Primary Care Provider [phone] Vivien Ohara MD Primary Care Provider [phone] Reason for Visit * Reason Onset Date Comments Results 08/03/2022 Encounter Details Date Type Department Care Team ([facility] st Contact Info) Description 08/03/2022 Telephone [facility] [address] [place] [address] Kandi Vanessa FNP Results Social History Tobacco [...] Description 05/04/2025 3:30 PM EDT Office Visit [facility] [address] [place] [phone] Vivien Ohara MD [address] [place] [address] documented as of this encounter Visit Diagnoses Not on filedocumented in this encounter Care Teams Phlebotomist Prn Relationship Specialty Start Date End Date Kandi Vanessa FNP PCP - General Family Medicine 03/07/22 05/02/23 Lakeisha Yadav NP [address] [place] [address] PCP - General Family Medicine 05/03/23 08/18/23 Vivien Ohara MD [address] [place] [address] PCP - General Family Medicine 08/19/23 documented as of this encounter
--- OUTSIDE RECORDS SUMMARY | 2025-04-12 21:14 | XMS_ITS | Encounter Summary ---
Author Organization [employer] Address [address] [place] [address] 7 [place] [address] Care Team Providers Care Medical Claims Specialist Name Role Phone Vivien Ohara MD Primary Care Provider [phone] Reason for Referral * Consultation (Routine) - Closed Specialty Diagnoses / Procedures Referred By Contac t Referred To Contact Pharmacy Diagnoses Type 2 diabetes mellitus without complication, without long-term current use of insulin (CMS/HCC) Hypertension, unspecified type Vivien Ohara MD [address] [place] [address] Phone: tel: fax: Referral ID Status Reason Start Date Expiration Date V isits Requested Visits Authorized [id number] Closed Continuity of Care 04/29/2024 04/29/2025 6 6 Encounter Details Date Type Department Care Team ([facility] st Contact Info) Description 04/29/2024 Orders Only [facility] [address] [place], [place] [phone] Vivien Ohara MD [address] [place], [place] [phone] Type 2 diabetes mellitus without complication, without [...] Description 05/04/2025 3:30 PM EDT Office Visit [facility] [address] [place], [place] [phone] Vivien Ohara MD [address] [place], [place] [phone] Scheduled Referrals Name Type Priority Associated Diagnoses Orde r Schedule Referral to Pharmacy MT Outpatient Referral Routine Type 2 diabetes mellitus without complication, without long-term current use of insulin ([facility]) Hypertension, unspecified type Ordered: 04/29/2024 documented as of this encounter Visit Diagnoses Diagnosis Type 2 diabetes mellitus without complication, without long-term current use of insulin (CMS/[facility])- Primary Hypertension, unspecified type documented in this encounter Additional Health Concerns Assessment Noted Time PHQ-9 Depression Total Score: 0 03/14/20 23 1:40 PM EDT documented as of this encounter Care Teams Medical Claims Specialist Relationship Specialty Start Date End Date Vivien Ohara MD [address] [place] [address] PCP - General Family Medicine 08/19/23 documented as of this encounter
--- OUTSIDE RECORDS SUMMARY | 2025-04-12 21:14 | XMS_ITS | Encounter Summary ---
Author Organization [employer] Address [address] [facility] 7t [place] [address] Care Team Providers Care Inspector Salvage Name Role Phone Kandi Vanessa Ciera NORTONP Primary Care Provider Lakeisha Barclay NP Primary Care Provider [phone] Vivien Ohara MD Primary Care Provider [phone] Reason for Visit * Reason Comments Med Refill Encounter Details Date Type Department Care Team ([facility] Contact Info) Description 08/14/2022 Refill [facility] [address] [place] [address] Hailey Gomez MD [address] [place] [address] Cough in adult Social History Tobacco Use [...] Upcoming Encounters Date Type Department Care Team ([facility] Contact Info) Description 05/04/2025 3:30 PM EDT Office Visit [facility] [address] [place] [address] Vivien Ohara MD [address] [place] [address] documented as of this encounter Visit Diagnoses Diagnosis Cough in adult documented in this encounter Care Teams Inspector Salvage Relationship Specialty Start Date End Date Kandi Vanessa FNP PCP - General Family Medicine 03/07/22 05/02/23 Lakeisha Yadav NP [address] [place] [address] PCP - General Family Medicine 05/03/23 08/18/23 Vivien Ohara MD [address] [place] [phone] PCP - General Family Medicine 08/19/23 documented as of this encounter
--- OUTSIDE RECORDS SUMMARY | 2025-04-12 21:14 | XMS_ITS | Encounter Summary ---
Author Organization [employer] Address [address] [facility] 7t [place] [address] Care Team Providers Care Business Department Chair Name Role Phone Vivien Ohara MD Primary Care Provider [phone] Encounter Details Date Type Department Care Team ([facility] Contact Info) Description 04/08/2025 Orders Only GENERIC [...] Description 05/04/2025 3:30 PM EDT Office Visit [facility] [address] [place] [address] Vivien Ohara MD [address] [place] [address] Pending Results Name Type Priority Associated Diagnoses [...] URINALYSIS, COMPLETE Routine 04/08/2025 1:15 PM EDT COMPLEMENT COMPONENT C3C Routine 04/08/2025 1:15 PM EDT COMPLEMENT COMPONENT C4C Routine 04/08/2025 1:15 PM EDT UREA NITROGEN (BUN) Routine 04/08/2025 1:15 PM EDT CALCIUM Routine 04/08/2025 1:15 PM EDT ELECTROLYTE PANEL Routine 04/08/2025 1:1 5 PM EDT documented in this encounter Results * Complement Component C4c (04/08/2025 1:15 PM EDT) Complement C4 27 15 - 57 mg/dL [facility] Comment:THIS TEST WAS PERFOR MED AT:[employer]™[address] [place] [id number] CAMERON MD 04/08/2025 1:15 PM EDT 04/08/2025 4:09 PM EDT us Generic External Data Provider LAB BLOOD ORDERAB LES Final Result [facility] [address] [place] [phone] * Complement Component C3c (04/08/2025 1:15 PM EDT) Complement C3 176 83 - 193 mg/dL [facility] Comment:THIS TEST WAS PERFOR MED AT:[employer]™[address] [place] [id number] CAMERON MD 04/08/2025 1:15 PM EDT 04/08/2025 4:09 PM EDT us Generic External Data Provider LAB BLOOD ORDERAB LES Final Result Performing Organization Address [facility]/ZIP Co de Phone Number [facility] [address] [place] [phone] * Hepatitis B Surface Antigen (04/08/2025 1:15 PM EDT) Hepatitis B Surface Ag NEGATIVE Negative [facility] 04/08/2025 1:15 PM EDT 04/08/2025 4:03 PM EDT Generic External Data Provider HISTORICAL/NON OR DERABLE LABS Final Result Performing Organization Address [facility] [[email or web address]] Co de Phone Number [facility] [address] [place] [phone] * Hepatitis C Antibody with Reflex to HCV, RNA, Quantitative, Real-Time PCR (04/08/2025 1:15 PM EDT) Hepatitis C Antibody Nonreactive Nonreactive [facility] Comment:Antibodies to HCV no t detected; does not exclude early acuteHCV infection. 04/08/2025 1:15 PM EDT 04/08/2025 4:03 PM EDT us Generic External Data Provider LAB BLOOD ORDERAB LES Final Result Performing Organization Address [facility]/ZIP Co de Phone Number [facility] [address] [place] [phone] * Hepatitis B Core Antibody, Total (04/08/2025 1:15 PM EDT) Hepatitis B Core Antibody Nonreactive Nonreactive [facility] 04/08/2025 1:15 PM EDT 04/08/2025 4:03 PM EDT Generic External Data Provider LAB BLOOD ORDERAB LES Final Result Performing Organization Address [facility] [[email or web address]] Co de Phone Number [facility] [address] [place] [address] [phone] * (ABNORMAL) Protein Creatinine Ratio, Urine (04/08/2025 1:15 PM EDT) Creatinine, Urine 196.59 mg/dL [facility] Protein, Total, Random Urine 14(H) <12 mg/dL [facility] Protein/Creati nine Ratio, Ur 0.07 <0.2 [facility] Comment:The spot urine prote in:creatinine ratio may increase to 0.3during normal . 04/08/2025 1:15 PM EDT 04/08/2025 4:03 PM EDT Generic External Data Provider LAB URINE ORDERAB LES Final Result Performing Organization Address [facility] de Phone Number [facility] [address] [place] [phone] * (ABNORMAL) Urinalysis Complete (04/08/2025 1:15 PM EDT) Color Urine Yellow [facility] Appearance Urine Cloudy [facility] PH 5.5 5.0 - 9.0 [facility] Glucose Urine UA Negative Negative mg/dL [facility] Urine Blood Small (1+)(A) Negative [facility] Specific [place] - Urine 1.020 1.005 - 1.025 [facility] Urine Protein Trace Neg-Trace mg/dL [facility] Urine Ketones Trace Negative mg/dL [facility] Nitrite Urine Negative Negative [facility] Leukocyte Esterase Urine Large (3+)(A) Negative [facility] RBC Urine 0-2 0 - 2 /HPF [facility] Urine WBC >50(A) 0 - 5 /HPF [facility] Urine Squamous Epithelial Cell 11-20 0 - 2 /HPF [facility] Urine Bacteria 3+ None Seen [facility] Hyaline Casts, Urine 0-2 0 - 2 /LPF [facility] 04/08/2025 1:15 PM EDT 04/08/2025 4:03 PM EDT us Generic External Data Provider LAB URINE ORDERAB LES Final Result [facility] [address] [place] [phone] * (ABNORMAL) CBC auto differential (04/08/2025 1:15 PM EDT) White Blood Count 9.7 4.8 - 10.8 X10*3/uL [facility] Red Blood Count 4.41 4.20 - 5.50 X10*6/uL [facility] Hemoglobin 12.7 12.0 - 16.0 g/dl [facility] Hematocrit 37.2 37.0 - 47.0 % [facility] Mean Corpuscular Volume 84.4 80.0 - 98.0 fL [facility] Mean Corpuscular Hemoglobin 28.8 27.0 - 33.0 pg [facility] Mean Corpuscular HGB Conc 34.1 31.0 - 35.0 g/dl [facility] Red Cell Distribution Width 13.7 11.0 - 16.0 % [facility] Platelet Count 253 160 - 400 X10*3/uL [facility] Mean Platelet Volume 10.2 9.4 - 12.3 fL [facility] Neutrophils Percent Auto 59.6 45 - 73 % [facility] Imm Gran Pct Auto 0.4 0.0 - 0.4 % [facility] Lymphocytes Percent Auto 27.9 20 - 40 % [facility] Monocytes Percent Auto 8.1 2 - 11 % [facility] Eosinophils Percent Auto 3.6 0 - 4 % [facility] Basophils Percent Auto 0.4 0 - 2 % [facility] NRBC Pct Auto 0.0 0.0 - 0.2 /100WBC [facility] Neutrophils Absolute Auto 5.8 2.0 - 8.3 x10*3/uL [facility] Imm Gran Abs Auto 0.04(H) 0.00 - 0.03 X10*3/uL [facility] Lymphocytes Absolute Auto 2.7 1.2 - 4.9 X10*3/uL [facility] Monocytes Absolute Auto 0.8 0.1 - 1.2 X10*3/uL [facility] Eosinophils Absolute Auto 0.4 0.0 - 0.4 X10*3/uL [facility] Basophils Absolute Auto 0.0 0.0 - 0.2 X10*3/uL [facility] NRBC Abs Auto 0.000 0.0 - 0.012 X10*3/uL [facility] 04/08/2025 1:15 PM EDT 04/08/2025 4:03 PM EDT us Generic External Data Provider LAB BLOOD ORDERAB LES Final Result Performing Organization Address City/[facility]/ZIP Co de Phone Number [facility] [address] [place] [phone] * Calcium (04/08/2025 1:15 PM EDT) Calcium 8.9 8.4 - 10.2 mg/dL [facility] 04/08/2025 1:15 PM EDT 04/08/2025 4:03 PM EDT us Generic External Data Provider LAB BLOOD ORDERAB LES Final Result Performing Organization Address City/[facility]/ZIP Co de Phone Number [facility] [address] [place] [phone] [phone] * Creatinine, Serum (04/08/2025 1:15 PM EDT) Creatinine, Serum 0.79 0.5 - 1.4 mg/dL [facility] Estimated Glomerular Filt Rate >60 [facility] Comment:Chronic Kidney Disea se: Estimated GFR < 60 mL/min/[id number] Kidney Disease: Estimated GFR < 15 mL/min/1.73m2 04/08/2025 1:15 PM EDT 04/08/2025 4:03 PM EDT Generic External Data Provider LAB BLOOD ORDERAB LES Final Result Performing Organization Address City/[facility]/ZIP Co de Phone Number [facility] [address] [place] [phone] * BUN (Blood Urea Nitrogen) (04/08/2025 1:15 PM EDT) Urea Nitrogen (BUN) 16 9 - 16 mg/dL [facility] 04/08/2025 1:15 PM EDT 04/08/2025 4:03 PM EDT Generic External Data Provider LAB BLOOD ORDERAB LES Final Result Performing Organization Address City/[facility]/ZIP Co de Phone Number [facility] [address] [place] [phone] [phone] * (ABNORMAL) Electrolyte Panel (04/08/2025 1:15 PM EDT) Sodium 138 135 - 145 mmol/L [facility] Potassium 3.5 3.3 - 5.1 mmol/L [facility] Chloride 106 96 - 108 mmol/L [facility] Carbon Dioxide 25 22 - 29 mmol/L [facility] Anion Gap 11(L) 12 - 20 [facility] 04/08/2025 1:15 PM EDT 04/08/2025 4:03 PM EDT us Generic External Data Provider LAB BLOOD ORDERAB LES Final Result [facility] [address] [place] [phone] documented in this encounter Visit Diagnoses Not on filedocumented in this encounter Additional Health Concerns Assessment Noted Time PHQ-9 Depression Total Score: 13 025 12:01 PM EDT documented as of this encounter Care Teams Business Department Chair Relationship Specialty Start Date End Date Vivien Ohara MD [address] [place] [address] PCP - General Family Medicine 08/19/23 documented as of this encounter
--- OUTSIDE RECORDS SUMMARY | 2025-04-12 21:14 | XMS_ITS | Encounter Summary ---
Author Organization [employer] Address [address] [facility] 7t [place] [address] Care Team Providers Care Conference Center Coordinator Name Role Phone Vivien Ohara MD Primary Care Provider [phone] Encounter Details Date Type Department Care Team ([facility] Contact Info) Description 02/19/2025 Orders Only [facility] MEDICINE [address] [place], [place] [phone] Vivien Ohara MD [address] [place] [address] Social History Tobacco Use Types Packs/Day Years [...] Description 05/04/2025 3:30 PM EDT Office Visit [facility] MED[facility]INE [address] [place] [address] Vivien Ohara MD [address] [place] [address] documented as of this encounter Visit Diagnoses Not on filedocumented in this encounter Additional Health Concerns Assessment Noted Time PHQ-9 Depression Total Score: 13 025 12:01 PM EDT documented as of this encounter Care Teams Conference Center Coordinator Relationship Specialty Start Date End Date Vivien Ohara MD [address] [place], [place] [phone] PCP - General Family Medicine 08/19/23 documented as of this encounter
--- OUTSIDE RECORDS SUMMARY | 2025-04-12 21:14 | XMS_ITS | Encounter Summary ---
Author Organization [employer] Address 75 [facility] 7t [place] [address] Care Team Providers Care Lock Corner Machine Operator Name Role Phone Vivien Ohara MD Primary Care Provider [phone] Reason for Visit * Reason Comments Med Refill Encounter Details Date Type Department Care Team ([facility] st Contact Info) Description 05/04/2024 Refill [facility] [address] [place], [place] [phone] Vivien Ohara MD [address] [place], [place] [phone] Social History Tobacco Use Types Packs/Day Years [...] PM EDT Office Visit [facility] [address] [place] [address] Vivien Ohara MD [address] [place] [address] documented as of this encounter Visit Diagnoses Not on filedocumented in this encounter Additional Health Concerns Assessment Noted Time PHQ-9 Depression Total Score: 0 03/14/20 23 1:40 PM EDT documented as of this encounter Care Teams Lock Corner Machine Operator Relationship Specialty Start Date End Date Vivien Ohara MD [address] [place] [address] [phone] PCP - General Family Medicine 08/19/23 documented as of this encounter
--- OUTSIDE RECORDS SUMMARY | 2025-04-12 21:14 | XMS_ITS | Encounter Summary ---
Author Organization [employer] Address 75 [facility] 7t [place] [address] Care Team Providers Care Clinical Biostatistics Director Name Role Phone Vivien Ohara MD Primary Care Provider [phone] Reason for Visit * Reason Onset Date Comments Med Refill 03/10/2024 Encounter Details Date Type Department Care Team ([facility] Contact Info) Description 03/10/2024 Refill [facility] MEDICINE [address] [place], [place] [phone] Vivien Ohara MD 230 [place], [place] [phone] Primary osteoarthritis involving multiple joints Social History [...] Description 05/04/2025 3:30 PM EDT Office Visit [facility] MEDICINE [address] [place] [phone] Vivien Ohara MD [address] [place] [phone] documented as of this encounter Visit Diagnoses Diagnosis Primary osteoarthritis involving multiple joints documented in this encounter Additional Health Concerns Assessment Noted Time PHQ-9 Depression Total Score: 0 03/14/20 23 1:40 PM EDT documented as of this encounter Care Teams Clinical Biostatistics Director Relationship Specialty Start Date End Date Vivien Ohara MD [address] [place] [id number] PCP - General Family Medicine 08/19/23 documented as of this encounter
--- OUTSIDE RECORDS SUMMARY | 2025-04-12 21:14 | XMS_ITS | Encounter Summary ---
Author Organization [employer] Address 75 [facility] 7t [place] [address] Care Team Providers Care Knitted Goods Shaper Name Role Phone Vivien Ohara MD Primary Care Provider [phone] Encounter Details Date Type Department Care Team ([facility] Contact Info) Description 10/27/2024 Orders Only [facility] MEDICINE 230 [place], [place] [phone] Vivien Ohara MD [address] [place] [address] Social History Tobacco Use Types Packs/Day Years [...] Description 05/04/2025 3:30 PM EDT Office Visit [facility] MEDICINE [address] [place] [address] Vivien Ohara MD [address] [place] [address] documented as of this encounter Visit Diagnoses Not on filedocumented in this encounter Additional Health Concerns Assessment Noted Time PHQ-9 Depression Total Score: 13 025 12:01 PM EDT documented as of this encounter Care Teams Knitted Goods Shaper Relationship Specialty Start Date End Date Vivien Ohara MD [address] [place] [address] [phone] PCP - General Family Medicine 08/19/23 documented as of this encounter
--- OUTSIDE RECORDS SUMMARY | 2025-04-12 21:14 | XMS_ITS | Encounter Summary ---
Author Organization [employer] Address 75 [facility] 7t [place] [address] Care Team Providers Care Director Credit Risk Name Role Phone Vivien Ohara MD Primary Care Provider Reason for Visit * Reason Comments Med Refill Encounter Details Date Type Department Care Team ([facility] st Contact Info) Description 05/14/2024 Refill [facility] MEDICINE [address] [place], [place] [phone] Vivien Ohara MD 230 [place], [place] [phone] Mild intermittent asthma with acute exacerbation Social [...] 3:30 PM EDT Office Visit [facility] MEDICINE [address] [place] [address] Vivien Ohara MD [address] [place] [address] documented as of this encounter Visit Diagnoses Diagnosis Mild intermittent asthma with acute exacerbation documented in this encounter Additional Health Concerns Assessment Noted Time PHQ-9 Depression Total Score: 0 03/14/20 23 1:40 PM EDT documented as of this encounter Care Teams Director Credit Risk Relationship Specialty Start Date End Date Vivien Ohara MD [address] [place] [address] [phone] PCP - General Family Medicine 08/19/23 documented as of this encounter
--- OUTSIDE RECORDS SUMMARY | 2025-04-12 21:14 | XMS_ITS | Encounter Summary ---
Author Organization [employer] Address 75 [facility] 7t [place] [address] Care Team Providers Care Veterinarian Small Animal Name Role Phone Vivien Ohara MD Primary Care Provider [phone] Encounter Details Date Type Department Care Team ([facility] st Contact Info) Description 02/19/2025 Orders Only [facility] MEDICINE 230 [place], [place] [phone] Vivien Ohara MD 230 [place] [address] Type 2 diabetes mellitus without complication, without long-term current use of insulin ([facility]) (Primary Dx) Social History Tobacco Use [...] Description 05/04/2025 3:30 PM EDT Office Visit [facility] MEDICINE [address] [place] [address] Vivien Ohara MD [address] [place] [address] documented as of this encounter Visit Diagnoses Diagnosis Type 2 diabetes mellitus without complication, without long-term current use of insulin ([facility])- Primary documented in this encounter Additional Health Concerns Assessment Noted Time PHQ-9 Depression Total Score: 13 025 12:01 PM EDT documented as of this encounter Care Teams Veterinarian Small Animal Relationship Specialty Start Date End Date Vivien Ohara MD [address] [place] [phone] PCP - General Family Medicine 08/19/23 documented as of this encounter
--- OUTSIDE RECORDS SUMMARY | 2025-04-12 21:14 | XMS_ITS | Encounter Summary ---
Author Organization [email or web address] Address [address] [facility] [address] 7t [place] [address] Care Team Providers Care Nursing Assistant Name Role Phone Vivien Ohara MD Primary Care Provider [phone] Reason for Visit * Reason Comments Med Refill Encounter Details Date Type Department Care Team ([facility] st Contact Info) Description 11/06/2023 Refill [facility] 230 [place] [address] Amanda Moreno MD [address] [place] [address] Social History Tobacco Use Types Packs/Day Years [...] Description 05/04/2025 3:30 PM EDT Office Visit [facility] MEDICINE [address] [place] [address] Vivien Ohara MD [address] [place] [address] documented as of this encounter Visit Diagnoses Not on filedocumented in this encounter Additional Health Concerns Assessment Noted Time PHQ-9 Depression Total Score: 0 03/14/20 23 1:40 PM EDT documented as of this encounter Care Teams Nursing Assistant Relationship Specialty Start Date End Date Vivien Ohara MD [address] [place] [phone] PCP - General Family Medicine 08/19/23 documented as of this encounter
--- OUTSIDE RECORDS SUMMARY | 2025-04-12 21:14 | XMS_ITS | Encounter Summary ---
Author Organization [email or web address] Address [address] [facility] [address] 7t [place] [address] Care Team Providers Care Youth Corrections Officer Name Role Phone Lakeisha Yadav NP Primary Care Provider [phone] Vivien Ohara MD Primary Care Provider [phone] Reason for Visit * Reason Comments Med Refill Encounter Details Date Type Department Care Team ([facility] st Contact Info) Description 08/17/2023 Refill [facility] MEDICINE [address] [place] [address] Name, MD Dylon [address] [place] [address] Mild intermittent asthma with acute exacerbation Social [...] Description 05/04/2025 3:30 PM EDT Office Visit [facility] MEDICINE [address] [place] [address] Vivien Ohara MD [address] [place] [address] documented as of this encounter Visit Diagnoses Diagnosis Mild intermittent asthma with acute exacerbation documented in this encounter Additional Health Concerns Assessment Noted Time PHQ-9 Depression Total Score: 0 03/14/20 23 1:40 PM EDT documented as of this encounter Care Teams Youth Corrections Officer Relationship Specialty Start Date End Date Lakeisha Yadav NP [address] [place] [address] PCP - General Family Medicine 05/03/23 08/18/23 Vivien Ohara MD [address] [place] [address] PCP - General Family Medicine 08/19/23 documented as of this encounter
--- OUTSIDE RECORDS SUMMARY | 2025-04-12 21:14 | XMS_ITS | Clinical Summary ---
Author Organization [employer] Address [address] [facility] [address] [place] [address] Care Team Providers Care Patient Safety Officer Name Role Phone Vivien Ohara MD Primary Care Provider [phone] Allergies Active Allergy Reactions Criticality Noted Date [...] 023 Active Blood Glucose Monitoring Suppl (FreeStyle [place] Lite) w/Device kit TEST BLOOD SUGAR THREE [...] complication, without long-term current use of insulin ([facility]) TEST BLOOD SUGAR THREE TIMES DAILY DIRECTED 100 each 5 Active FREESTYLE LITE test stripIndications :Type 2 diabetes mellitus without complication, without long-term current use of insulin ([facility]) TEST BLOOD SUGAR THREE TIMES DAILY [...] complication, without long-term current use of insulin ([facility]) Inject 0.5 mg under the skin 1 (one) time per week. 3 mL 11 Active metFORMIN XR (Glucophage-XR) 500 MG 24 hr tablet Take 1 tablet (500 mg) by mouth 2 times daily. 180 tablet 3 Active omeprazole (PriLOSEC) [address] capsule TAKE 1 CAPSULE BY MOUTH EVERY DAY 90 capsule 1 Active Blood Glucose Monitoring Suppl (Fresh Interactive TechnologiesStyle [place] Lite) w/Device kitIndications:T ype 2 diabetes mellitus without complication, without long-term current use of insulin ([facility]) Use to test blood sugar 3 times daily 1 kit 025 Active Blood Pressure kitIndications:H ypertension, unspecified type 1 each Once per day. Use to check blood pressure once daily 1 kit Active Continuous Glucose Construction Analyst (FreeStyle [place] 3 [place]) deviceIndication s:Type 2 diabetes mellitus without complication, without long-term current use of insulin ([facility]) 1 each Once per day. Use [...] (02/14/2025 2:49 PM EDT): - Following with [facility] urology, last seen 02/01/2025 - Most [...] EDT): - Following up with neurologist at [facility], appointment today 02/01/2025 - Previously recommended [...] 8:44 AM EDT): - previously seen by [facility] Urologist -was recommended bladder suspension surgery -pt has both stress and urge incontinence -will refer back to Urologist -discussed about possible side effects including urinary problem with new medication for type 2 diabetes and pt verbalize understanding Assessment & Plan (05/13/2024 1:54 PM EDT): - previously seen by [facility] Urologist -was recommended bladder suspension surgery -pt has both stress and urge incontinence -will refer back to Urologist -discussed about possible side effects including urinary problem with new medication for type 2 diabetes and pt verbalize understanding Assessment & Plan (01/16/2024 11:23 AM EDT): - previously seen by [facility] Urologist -was recommended bladder suspension surgery -pt [...] locate [place] records Foot exam/peripheral pulses: WNL 10 on [...] - foot exam: 10/26/24 - eye exam: [facility] eye care Apr 2024, no diabetic [...] - foot exam: 10/26/24 - eye exam: [facility] eye care Apr 2024, no diabetic [...] visit - eye exam: referred again to [facility] eye care - microalbumin: Apr 2022, [...] numbness - eye exam: referred again to [facility] eye care - microalbumin: Apr 2022, [...] numbness - eye exam: referred again to [facility] eye care - microalbumin: Apr 2022, [...] check RAST or referral to allergy / cash reconciliation specialist Assessment & Plan (10/06/2023 5:02 PM EDT): - continue cetirizine, montelukast, and Fluticasone nasal (Flonase) - check RAST or referral to allergy / cash reconciliation specialist Dyslipidemia 10/31/2012 Assessment & Plan (02/14/2025 [...] (02/14/2025 2:55 PM EDT): - followed by organization development consultant, Dr. Awad, [facility], last seen on 10/15/24, advised to reschedule a follow up appointment - last PFT in November 2024 - continue mometasone (Asmanex) as maintenance - continue montelukast - continue albuterol neb and HFA prn Assessment & Plan (10/29/2024 10:08 AM EDT): - followed by organization development consultant, Dr. Awad, [facility], last seen on 10/15/24 - continue [...] can receive CPAP. Recommended to contact her lead care manager from [facility] if she has difficulty Assessment & Plan (10/29/2024 10:07 AM EDT): - sleep study at [facility] on 03/06/23 - report recommends in-lab for titration study or auto-PAP 6-20 cm H2O - script for AutoPAP was written in September 2023, still does not have one - recently seen by organization development consultant, and re-ordered sleep study / CPAP Assessment & Plan (05/13/2024 1:54 PM EDT): - sleep study at [facility] on 03/06/23, ordered by previous PCP - report recommends in-lab for titration study or auto-PAP 6-20 cm H2O - script for AutoPAP was written in September 2023, will check up on that Assessment & Plan (01/16/2024 11:20 AM EDT): - sleep study at [facility] on 03/06/23, ordered by previous PCP - report recommends in-lab for titration study or auto-PAP 6-20 cm H2O - script for AutoPAP was written in September 2023, will check up on that Assessment & Plan (10/06/2023 4:49 PM EDT): - sleep study at [facility] on 03/06/23, ordered by [...] DEPARTMENT Provider, Generic External Data 03/16/2025 Refill [facility] [address] [place] [address] Vivien Ohara MD Multinodular goiter; Primary hypertension 03/03/2025 Refill [facility] [address] [place] [address] Vivien Ohara MD 02/23/[address] [address] Vivien Ohara MD Telephone Call 02/19/2025 Orders Only [address] [address] Vivien Ohara MD Type 2 diabetes mellitus without complication, without long-term current use of insulin ([facility]) (Primary Dx) 02/19/2025 Orders Only [facility] [address] [place] [address] Vivien Ohara MD 02/18/[address] [address] Vivien Ohara MD Hypertension, unspecified type; Type 2 diabetes mellitus without complication, without long-term current use of insulin ([facility]) 02/18/[address] [address] Vivien Ohara MD Durable Medical Equipment 02/10/2025 Refill [facility] [address] [place] [address] Vivien Ohara MD 02/01/2025 3:00 PM EDT Office Visit [address] [address] Vivien Ohara MD Hypertension, unspecified type (Primary Dx); Type 2 diabetes mellitus without complication, without long-term current use of insulin ([facility]); Dyslipidemia; Hypothyroidism, unspecified type; Vitamin D deficiency; Mixed stress and urge urinary incontinence; Mild intermittent asthma without complication; Skin lesions; Class 2 severe obesity due to excess calories with serious comorbidity and body mass index (BMI) of 39.0 to 39.9 in adult ([facility]); Kidney stone; Obstructive sleep apnea syndrome 02/01/2025 Orders Only GENERIC EXTERNAL DATA DEPARTMENT Provider, Generic External Data 02/01/2025 Travel 01/28/[address] [address] Vivien Ohara MD chart prep from Last [...] 3:30 PM EDT Office Visit [facility] [address] [place] [address] Vivien Ohara MD [address] [place] [address] Health Maintenance Due Date Last Done Comments [...] (NON ORDERABLE) Routine 04/08/2025 1:15 PM EDT COMPLEMENT COMPONENT C4C Routine 04/08/2025 1:15 PM EDT COMPLEMENT COMPONENT C3C Routine 04/08/2025 1:15 PM EDT PROTEINASE-3 ANTIBODY [...] EDT) Hepatitis B Surface Ag NEGATIVE Negative [facility] 04/08/2025 1:15 PM EDT 04/08/2025 4:03 PM EDT Generic External Data Provider HISTORICAL/NON OR DERABLE LABS Final Result Performing Organization Address [facility]/ZIP Co de Phone Number [facility] [address] [place] [phone] * (ABNORMAL) Protein Creatinine Ratio, Urine (04/08/2025 1:15 PM EDT) Creatinine, Urine 196.59 mg/dL [facility] Protein, Total, Random Urine 14(H) <12 mg/dL [facility] Protein/Creati nine Ratio, Ur 0.07 <0.2 [facility] Comment:The spot urine prote in:creatinine ratio may increase to 0.3during normal . 04/08/2025 1:15 PM EDT 04/08/2025 4:03 PM EDT Generic External Data Provider LAB URINE ORDERAB LES Final Result Performing Organization Address [facility]/ZIP Co de Phone Number [facility] [address] [place] [address] [phone] * Creatinine, Serum (04/08/2025 1:15 PM EDT) Creatinine, Serum 0.79 0.5 - 1.4 mg/dL [facility] Estimated Glomerular Filt Rate >60 [facility] Comment:Chronic Kidney Disea se: Estimated GFR < 60 mL/min/1.01m6Kquigl Kidney Disease: Estimated GFR < 15 mL/min/1.73m2 04/08/2025 1:15 PM EDT 04/08/2025 4:03 PM EDT us Generic External Data Provider LAB BLOOD ORDERAB LES Final Result Performing Organization Address City/State/[facility] Co de Phone Number [facility] [address] [place] [phone] * (ABNORMAL) CBC auto differential (04/08/2025 1:15 PM EDT) White Blood Count 9.7 4.8 - 10.8 X10*3/uL [facility] Red Blood Count 4.41 4.20 - 5.50 X10*6/uL [facility] Hemoglobin 12.7 12.0 - 16.0 g/dl [facility] Hematocrit 37.2 37.0 - 47.0 % [facility] Mean Corpuscular Volume 84.4 80.0 - 98.0 fL [facility] Mean Corpuscular Hemoglobin 28.8 27.0 - 33.0 pg [facility] Mean Corpuscular HGB Conc 34.1 31.0 - 35.0 g/dl [facility] Red Cell Distribution Width 13.7 11.0 - 16.0 % [facility] Platelet Count 253 160 - 400 X10*3/uL [facility] Mean Platelet Volume 10.2 9.4 - 12.3 fL [facility] Neutrophils Percent Auto 59.6 45 - 73 % [facility] Imm Gran Pct Auto 0.4 0.0 - 0.4 % [facility] Lymphocytes Percent Auto 27.9 20 - 40 % [facility] Monocytes Percent Auto 8.1 2 - 11 % [facility] Eosinophils Percent Auto 3.6 0 - 4 % [facility] Basophils Percent Auto 0.4 0 - 2 % [facility] NRBC Pct Auto 0.0 0.0 - 0.2 /100WBC [facility] Neutrophils Absolute Auto 5.8 2.0 - 8.3 x10*3/uL [facility] Imm Gran Abs Auto 0.04(H) 0.00 - 0.03 X10*3/uL [facility] Lymphocytes Absolute Auto 2.7 1.2 - 4.9 X10*3/uL [facility] Monocytes Absolute Auto 0.8 0.1 - 1.2 X10*3/uL [facility] Eosinophils Absolute Auto 0.4 0.0 - 0.4 X10*3/uL [facility] Basophils Absolute Auto 0.0 0.0 - 0.2 X10*3/uL [facility] NRBC Abs Auto 0.000 0.0 - 0.012 X10*3/uL [facility] 04/08/2025 1:15 PM EDT 04/08/2025 4:03 PM EDT Generic External Data Provider LAB BLOOD ORDERAB LES Final Result Performing Organization Address [facility] de Phone Number [facility] [address] [place] [phone] * Hepatitis C Antibody with Reflex to HCV, RNA, Quantitative, Real-Time PCR (04/08/2025 1:15 PM EDT) Hepatitis C Antibody Nonreactive Nonreactive [facility] Comment:Antibodies to HCV no t detected; does not exclude early acuteHCV infection. 04/08/2025 1:15 PM EDT 04/08/2025 4:03 PM EDT Generic External Data Provider LAB BLOOD ORDERAB LES Final Result Performing Organization Address [facility]/ZIP Co de Phone Number [facility] [address] [place] [phone] [phone] * Hepatitis B Core Antibody, Total (04/08/2025 1:15 PM EDT) Hepatitis B Core Antibody Nonreactive Nonreactive [facility] 04/08/2025 1:15 PM EDT 04/08/2025 4:03 PM EDT us Generic External Data Provider LAB BLOOD ORDERAB LES Final Result Performing Organization Address [facility] Co de Phone Number [facility] [address] [place] [phone] * (ABNORMAL) Urinalysis Complete (04/08/2025 1:15 PM EDT) Color Urine Yellow [facility] Appearance Urine Cloudy [facility] PH 5.5 5.0 - 9.0 [facility] Glucose Urine UA Negative Negative mg/dL [facility] Urine Blood Small (1+)(A) Negative [facility] Specific [place] - Urine 1.020 1.005 - 1.025 [facility] Urine Protein Trace Neg-Trace mg/dL [facility] Urine Ketones Trace Negative mg/dL [facility] Nitrite Urine Negative Negative [facility] Leukocyte Esterase Urine Large (3+)(A) Negative [facility] RBC Urine 0-2 0 - 2 /HPF [facility] Urine WBC >50(A) 0 - 5 /HPF [facility] Urine Squamous Epithelial Cell 11-20 0 - 2 /HPF [facility] Urine Bacteria 3+ None Seen [facility] Hyaline Casts, Urine 0-2 0 - 2 /LPF [facility] 04/08/2025 1:15 PM EDT 04/08/2025 4:03 PM EDT us Generic External Data Provider LAB URINE ORDERAB LES Final Result Performing Organization Address [facility] Co de Phone Number [facility] [address] [place] [phone] * Complement Component C3c (04/08/2025 1:15 PM EDT) Complement C3 176 83 - 193 mg/dL [facility] Comment:THIS TEST WAS PERFOR MED AT:[employer] [address] [phone] CAMERON MD 04/08/2025 1:15 PM EDT 04/08/2025 4:09 PM EDT us Generic External Data Provider LAB BLOOD ORDERAB LES Final Result Performing Organization Address [facility] Co de Phone Number [facility] [address] [place] [phone] * Complement Component C4c (04/08/2025 1:15 PM EDT) Complement C4 27 15 - 57 mg/dL [facility] Comment:THIS TEST WAS PERFOR MED AT:[employer] [address] [phone] CAMERON MD 04/08/2025 1:15 PM EDT 04/08/2025 4:09 PM EDT us Generic External Data Provider LAB BLOOD ORDERAB LES Final Result Performing Organization Address [facility] Co de Phone Number [facility] [address] [place] [phone] * BUN (Blood Urea Nitrogen) (04/08/2025 1:15 PM EDT) Urea Nitrogen (BUN) 16 9 - 16 mg/dL [facility] 04/08/2025 1:15 PM EDT 04/08/2025 4:03 PM EDT us Generic External Data Provider LAB BLOOD ORDERAB LES Final Result Performing Organization Address [facility] Co de Phone Number [facility] [address] [place] [phone] * Calcium (04/08/2025 1:15 PM EDT) Calcium 8.9 8.4 - 10.2 mg/dL [facility] 04/08/2025 1:15 PM EDT 04/08/2025 4:03 PM EDT Generic External Data Provider LAB BLOOD ORDERAB LES Final Result Performing Organization Address [facility] Phone Number [facility] [address] [place] [phone] * (ABNORMAL) Electrolyte Panel (04/08/2025 1:15 PM EDT) Sodium 138 135 - 145 mmol/L [facility] Potassium 3.5 3.3 - 5.1 mmol/L [facility] Chloride 106 96 - 108 mmol/L [facility] Carbon Dioxide 25 22 - 29 mmol/L [facility] Anion Gap 11(L) 12 - 20 [facility] 04/08/2025 1:15 PM EDT 04/08/2025 4:03 PM EDT Generic External Data Provider LAB BLOOD ORDERAB LES Final Result Performing Organization Address [facility] Co de Phone Number [facility] [address] [place] [phone] * Cytopath-cell enhanced (02/01/2025 5:02 PM EDT) 02/01/2025 5:02 PM EDT 02/02/2025 9:12 AM EDT Narrative [facility] - 02/02/2025 4:06 PM EDT ----- ------- Name: Lia Deleon Age/Sex: 65/F : 1960 [id number]#: [id number] Attend Dr: Nikunj Simon MD Re02/01/25 Status: DEP [facility] Disch: ----- ------- SPEC : [id number] RECD: 02/02/25 STATUS: KATARZYNA Melissa NUM: [id number] LORNA: 02/01/25-[address] [facility] [address]: Nikunj Simon MD ENTERED: 02/02/25-1030 SP TYPE: Cytology OT DR: Vivien Ohara MD ORDERED: Cyto-enhanced Diagnosis [...] developed and their performance characteristics determined by [facility]. They have not been cleared or approved by the U.S. Food and Drug Administration (FDA). However, the FDA has determined that such clearance or approval is not necessary. This laboratory is certified under the Clinical Laboratory Improvement Amendments of 1988 (CLIA) as qualified to perform high complexity clinical laboratory testing. Copies To: Nikunj Simon MD [facility] [address] [place] [address] [address] [place], [place] [phone] [email or web address] Vivien Ohara MD [address] [address] CONTINUED ON NEXT PAGE ----- ------- Name: Lia Deleon Age/Sex: 65/F : 1960 Unit#: [id number] Attend Dr: Nikunj Simon MD Re02/01/25 Status: DEP REF Location: .LAB Disch: ----- ------- SPEC : [id number] RECD: 02/02/25 STATUS: KATARZYNA [place] NUM: [id number] LORNA: 02/01/[address] [facility] [address]: Nikunj Simon MD ENTERED: 02/02/25 SP TYPE: Cytology OTHR DR: Vivien Ohara MD ORDERED: Cyto-enhanced ----- ------- Signed (signature on file) Bella Darnell MD 02/02/25 1606 ----- ------- END OF REPORT Generic External Data Provider LAB CYTOLOGY ORDE RABLES Final Result [facility] [address] [place] [phone] * POCT glucose manually resulted (02/01/2025 [...] 11:00 AM EDT) Triglycerides 200(H) <150 mg/dL [facility] Comment:Desirable Triglyceri de: less than 150 mg/dLBorderline High Triglyceride 150-199 mg/dLHigh Triglyceride: 200-499 mg/dLVery High Triglyceride: greater than or equal to 5OO mg/dL Cholesterol 180 <200 mg/dL [facility] Comment:Desirable Cholestero l: less than 200 mg/dLBorderline High Cholesterol: 200-239 mg/dLHigh Cholesterol: greater than 239 mg/dL LDL Cholesterol Calculated 95 <100 mg/dL [facility] Comment:Desirable LDL: less than 100 mg/dLNear Optimal/Above Optimal LDL: 110- 129 mg/dLBorderline High LDL: 130-159 mg/dLHigh LDL: 160-189 mg/dLVery High LDL: greater than or equal to 190 mg/dL HDL Cholesterol 45 >40 mg/dL [facility] Comment:Desirable HDL: great er than 40 mg/dL Note: This HDL assay may give artificially low results in patients with liver disease. Blood 05/13/2024 11:0 0 AM EDT 05/13/2024 11:37 AM EDT us Vivien Ohara MD LAB BLOOD ORDERABLES Final Resul t [facility] [address] [place] [address] [phone] * BI Mammogram Screening Tomosynthesis Bilateral (01/07/2024 12:55 PM EDT) Anatomical Region Laterality Modality Breast Bilateral Mammography 01/07/2024 12:5 5 PM EDT Narrative 02/06/2024 9:41 AM EDT [facility] [address] [place] [address] [place] [address] Mammography Report Signed Patient: Lia Deleon MR#: [id number] : 1960 Acct:[id number] Age/Sex: 63 / F ADM Date: 01/07/24 Loc: BECK Attending Dr: Vivien Ohara MD Ordering Physician: Vivien Ohara MD Results: 1Negative Date of Service: 01/07/24 Follow Up: 1 Year From Orig inal Mammogram Procedure(s): MM tomosynthesis screening BI Accession Number(s): [id number] cc: Vivien Ohara MD EXAMINATION: MM SCREENING [...] in OV> 02/06/24 0937 DD/ 1255 TD/TT: Baggage Handling Supervisor: Procedure Note Donotuseinterpreter, Image - 02/06/2024 [facility] [address] [place] [address] [place] [address] Mammography Report Signed Patient: Lia DeleonMR#: [id number] : 9Acct:[id number] Age/Sex: 63 / FADM Date: 01/07/24 Loc: BECK Attending Dr: Vivien Ohara MD Ordering Physician: Vivien Ohara MDResults: 1Negative Date of Service: 01/07/24Follow Up: 1 Year From Orig inal Mammogram Procedure(s): MM tomosynthesis screening BI Accession Number(s): [id number] cc: Vivien Ohara MD EXAMINATION: MM SCREENING [...] in OV> 02/06/24 0937 DD/ 1255 TD/TT: Baggage Handling Supervisor: Vivien Ohara MD IMG BI PROCEDURES Final Result from Last 3 Months or Most Recently Relevant to Health Maintenance Insurance [facility] [employer] (HMO D-SNP) [place] [id number] Care Teams Patient Safety Officer Relationship Specialty Start Date End Date Vivien Ohara MD [address] [place] [address] PCP - General Family Medicine 08/19/23
== END 2025-04-12 16:46 | disposition home or self-care (01) ==
LOC: HO.HUSH 16:02
PROVIDERS: PCP Family Medicine; Visit Provider Urology
DX: R31.29 Other microscopic hematuria (principal); N20.0 Calculus of kidney; R80.8 Other proteinuria; N32.81 Overactive bladder
CPT/HCPCS: 99214; G2211

== ENCOUNTER 2025-05-01 09:36 | Outpatient (REF) | payer OTHER, SELFPAY ==
--- OUTSIDE RECORDS SUMMARY | 2025-05-01 09:40 | XMS_ITS | Encounter Summary ---
Author Organization [employer] Address [address] [facility] [address] [place] [address] Care Team Providers Care Pin Cleaner Name Role Phone Vivien Ohara MD Primary Care Provider [phone] Encounter Details Date Type Department Care Team ([facility] st Contact Info) Description 04/30/2025 Orders Only [facility] [address] [place], [place] [phone] Vivien Ohara MD [address] [place] [address] Hypertension, unspecified type (Primary Dx); Type 2 diabetes mellitus without complication, without long-term current use of insulin (HCC); Vitamin D deficiency; Dyslipidemia Social History Tobacco Use Types Packs/Day Years [...] the past 12 months, has t he [employer], gas, oil or water [employer] threatened to shut off services in your [...] 05/04/2025 3:30 PM EDT Office Visit [facility] [address] [place] [phone] Vivien Ohara MD [address] [place] [address] Scheduled Orders Name Type Priority Associated Diagnoses Orde r Schedule Lipid Panel with Reflex to Direct LDL Lab Routine Dyslipidemia Expected: 04/30/2025 (Approximate), Expires: 04/30/2026 Hepatic Function Panel Lab Routine Dyslipidemia Expected: 04/30/2025 (Approximate), Expires: 04/30/2026 Vitamin D, 25-Hydroxy, Total, Immunoassay Lab Routine Vitamin D deficiency Expected: 04/30/2025 (Approximate), Expires: 04/30/2026 documented as of this encounter Visit Diagnoses Diagnosis Hypertension, unspecified type- Primary Type 2 diabetes mellitus without complication, without long-term current use of insulin (HCC) Vitamin D deficiency Dyslipidemia Other and unspecified hyperlipidemia documented in this encounter Additional Health Concerns Assessment Noted Time PHQ-9 Depression Total Score: 13 025 12:01 PM EDT documented as of this encounter Care Teams Pin Cleaner Relationship Specialty Start Date End Date Vivien Ohara MD [address] [place] [address] PCP - General Family Medicine 08/19/23 documented as of this encounter
--- OUTSIDE RECORDS SUMMARY | 2025-05-01 09:40 | XMS_ITS | Encounter Summary ---
Author Organization [employer] Address [address] [place] [address] Care Team Providers Care Business Management Intern Name Role Phone Vivien Ohara MD Primary Care Provider [phone] Reason for Visit * Reason Onset Date Comments Med Refill 04/13/2025 Encounter Details Date Type Department Care Team ([facility] Contact Info) Description 04/13/2025 Refill [facility] [address] [place], [place] [phone] Vivien Ohara MD [address] [place], [place] [phone] Social History Tobacco Use Types Packs/Day Years [...] Description 05/04/2025 3:30 PM EDT Office Visit [facility] [address] [place] [address] Vivien Ohara MD [address] [place] [address] documented as of this encounter Visit Diagnoses Not on filedocumented in this encounter Additional Health Concerns Assessment Noted Time PHQ-9 Depression Total Score: 13 025 12:01 PM EDT documented as of this encounter Care Teams Business Management Intern Relationship Specialty Start Date End Date Vivien Ohara MD [address] [place] [id number] PCP - General Family Medicine 08/19/23 documented as of this encounter
--- OUTSIDE RECORDS SUMMARY | 2025-05-01 09:40 | XMS_ITS | Encounter Summary ---
Author Organization [employer] Address [address] [facility] [address] [place] [address] Care Team Providers Care Repatcher Name Role Phone Vivien Ohara MD Primary Care Provider [phone] Reason for Visit * Reason Onset Date Comments Med Refill 04/13/2025 Encounter Details Date Type Department Care Team ([facility] Contact Info) Description 04/13/2025 Refill [facility] [address] [place], [place] [phone] Vivien Ohara MD [address] [place], [place] [phone] Multinodular goiter Social History Tobacco Use Types Packs/Day Years [...] Description 05/04/2025 3:30 PM EDT Office Visit [facility] [address] [place] [phone] Vivien Ohara MD [address] [place] [address] documented as of this encounter Visit Diagnoses Diagnosis Multinodular goiter Nontoxic multinodular goiter documented in this encounter Additional Health Concerns Assessment Noted Time PHQ-9 Depression Total Score: 13 025 12:01 PM EDT documented as of this encounter Care Teams Repatcher Relationship Specialty Start Date End Date Vivien Ohara MD [address] [place] [address] PCP - General Family Medicine 08/19/23 documented as of this encounter
--- OUTSIDE RECORDS SUMMARY | 2025-05-01 09:40 | XMS_ITS | Clinical Summary ---
Author Organization [email or web address] Address [address] [facility] [address] [place] [address] Care Team Providers Care Brewing Director Name Role Phone Vivien Ohara MD Primary Care Provider Allergies Active Allergy Reactions Criticality Noted Date [...] 023 Active Blood Glucose Monitoring Suppl (FreeStyle Mission Lite) w/Device kit TEST BLOOD SUGAR THREE [...] DAILY NEEDED 90 mL 3 024 Active EPINEPHrine (Epipen) 0.3 MG/0.3ML injection syringe INJECT INTRAMUSCULARLY DIRECTED ON PACKAGE AND GO TO EMERGENCY ROOM OR CALL 911. 2 each 1 024 Active albuterol (Ventolin HFA) 108 (90 Base) MCG/ACT inhalerIndicatio ns:Mild intermittent asthma with acute exacerbation INHALE 2 PUFFS BY MOUTH EVERY 4 TO 6 HOURS NEEDED 18 g 024 Active tolterodine LA (Detrol LA) 4 MG 24 hr capsule Take 4 mg by mouth Once per day. Active TRUEplus Lancets 33G miscIndications: Type 2 diabetes mellitus without complication, without long-term current use of insulin ([facility]) TEST BLOOD SUGAR THREE TIMES DAILY DIRECTED 100 each 5 025 Active FREESTYLE LITE test stripIndications :Type 2 diabetes mellitus without complication, without long-term current use of insulin (HCC) TEST BLOOD SUGAR THREE TIMES DAILY DIRECTED 100 strip 025 Active amLODIPine (Norvasc) 5 MG tablet Take 1 tablet (5 mg) by mouth Once per day. 90 tablet 025 2025 Active cholecalciferol (Vitamin D-3) 25 MCG (1000 UT) capsule Take 1 capsule (25 mcg) by mouth Once per day. 90 capsule 025 Active cetirizine (ZyrTEC) 10 MG tabletIndication s:Seasonal allergic rhinitis, unspecified trigger Take 1 tablet (10 mg) by mouth Once per day. 90 tablet 1 025 Active fluticasone (Flonase) 50 MCG/ACT nasal sprayIndications :Seasonal allergic rhinitis, unspecified trigger INSTILL 1-2 SPRAYS IN EACH NOSTRIL ONCE DAILY 48 g 025 Active valsartan (Diovan) 160 MG tabletIndication s:Hypertension, unspecified type TAKE 1 TABLET BY MOUTH EVERY DAY 90 tablet 3 05/19/2 025 Active Farxiga 10 MG TAKE 1 TABLET BY MOUTH EVERY DAY 90 tablet 3 Active Semaglutide,0.25 or 0.5MG/DOS, (Ozempic, 0.25 or 0.5 MG/DOSE,) 2 MG/3ML solution pen-injectorIndi cations:Type 2 diabetes mellitus without complication, without long-term current use of insulin ([facility]) Inject 0.5 mg under the skin 1 (one) time per week. 3 mL Active metFORMIN XR (Glucophage-XR) 500 MG 24 hr tablet Take 1 tablet (500 mg) by mouth 2 times daily. 180 tablet 3 Active omeprazole (PriLOSEC) [address] capsule TAKE 1 CAPSULE BY MOUTH EVERY DAY 90 capsule Active Blood Glucose Monitoring Suppl (FeedgenStyle Mission Lite) w/Device kitIndications:T ype 2 diabetes mellitus without complication, without long-term current use of insulin ([facility]) Use to test blood sugar 3 times daily 1 kit Active Blood Pressure kitIndications:H ypertension, unspecified type 1 each Once per day. Use to check blood pressure once daily 1 kit Active Continuous Glucose Hide Worker (FreeStyle Leland 3 Melvern) deviceIndication s:Type 2 diabetes mellitus without complication, without long-term current use of insulin ([facility]) 1 each Once per day. Use as directed for CGM 1 each Active Continuous Glucose Sensor (FreeStyle Leland 3 Plus Sensor) miscIndications: Type 2 diabetes mellitus without complication, without long-term current use of insulin ([facility]) 1 each every 15 days. Apply 1 [...] BY MOUTH EVERY DAY 90 tablet 1 Active Aspirin Low Dose 81 MG EC tabletIndication s:Primary hypertension TAKE 1 TABLET BY MOUTH EVERY DAY IN THE MORNING 90 tablet 1 Active fenofibrate (Tricor) 54 MG tablet TAKE 1 TABLET BY MOUTH EVERY DAY IN THE MORNING 90 tablet 1 025 Active lidocaine (Lidoderm) 5 % patchIndications :Primary osteoarthritis involving multiple joints Apply 1 patch topically Once per day. Remove & discard patch within 12 hours or as directed by . 30 patch 11 025 Active Arnuity Ellipta 100 MCG/ACT inhalerIndicatio ns:Mild intermittent asthma with acute exacerbation INHALE 1 PUFF BY MOUTH EVERY DAY AT THE SAME TIME RINSE MOUTH AFTER USING 30 each 3 025 Active gabapentin (Neurontin) 100 MG capsuleIndicatio ns:Fibromyalgia TAKE 2 CAPSULES BY MOUTH EVERY 8 HOURS 180 capsule 025 Active lidocaine (Lidoderm) 5 % patchIndications :Primary osteoarthritis involving multiple joints Apply 1 patch topically Once per day. Remove & discard patch within 12 hours or as directed by . 30 patch 024 2024 Discontinued( Reorder (will not trigger notification to Pharmacy)) gabapentin (Neurontin) 100 MG capsuleIndicatio ns:Fibromyalgia TAKE 2 CAPSULES BY MOUTH EVERY 8 HOURS 180 capsule 5 025 2024 Discontinued Arnuity Ellipta 100 MCG/ACT inhalerIndicatio ns:Mild intermittent asthma with acute exacerbation INHALE 1 PUFF BY MOUTH EVERY DAY AT THE SAME TIME RINSE MOUTH AFTER USING 30 each 3 025 2024 Discontinued Active Problems Problem Noted Date Diagnosed Date Kidney stone 02/14/2025 Assessment & Plan (02/14/2025 2:49 PM EDT): - Following with [facility] [place], last seen 02/01/2025 - Most recent [...] EDT): - Following up with neurologist at [facility], appointment today 02/01/2025 - Previously recommended bladder [...] 8:44 AM EDT): - previously seen by [facility] Urologist -was recommended bladder suspension surgery -pt has both stress and urge incontinence -will refer back to Urologist -discussed about possible side effects including urinary problem with new medication for type 2 diabetes and pt verbalize understanding Assessment & Plan (05/13/2024 1:54 PM EDT): - previously seen by [facility] Urologist -was recommended bladder suspension surgery -pt has both stress and urge incontinence -will refer back to Urologist -discussed about possible side effects including urinary problem with new medication for type 2 diabetes and pt verbalize understanding Assessment & Plan (01/16/2024 11:23 AM EDT): - previously seen by [facility] Urologist -was recommended bladder suspension surgery -pt [...] TDap/Td: 03/02/2011, states she had repeat in [place]. No records. Will task [place] to try and locate [place] records Foot exam/peripheral pulses: WNL 05/07 on [...] - foot exam: 10/26/24 - eye exam: [facility] eye care Apr 2024, no [...] - foot exam: 10/26/24 - eye exam: [facility] eye care Apr 2024, no [...] visit - eye exam: referred again to [facility] eye care - microalbumin: Apr [...] numbness - eye exam: referred again to [facility] eye care - microalbumin: Apr [...] numbness - eye exam: referred again to [facility] eye care - microalbumin: Apr [...] check RAST or referral to allergy / communicable disease specialist Assessment & Plan (10/06/2023 5:02 PM EDT): - continue cetirizine, montelukast, and Fluticasone nasal (Flonase) - check RAST or referral to allergy / communicable disease specialist Dyslipidemia 10/31/2012 Assessment & Plan (02/14/2025 [...] (02/14/2025 2:55 PM EDT): - followed by employee adviser, Dr. Awad, [facility], last seen on 10/15/24, advised to reschedule a follow up appointment - last PFT in November 2024 - continue mometasone (Asmanex) as maintenance - continue montelukast - continue albuterol neb and HFA prn Assessment & Plan (10/29/2024 10:08 AM EDT): - followed by employee adviser, Dr. Awad, [facility], last seen on 10/15/24 - continue mometasone [...] can receive CPAP. Recommended to contact her career portals teacher from [facility] if she has difficulty Assessment & Plan (10/29/2024 10:07 AM EDT): - sleep study at [facility] on 03/06/23 - report recommends in-lab for titration study or auto-PAP 6-20 cm H2O - script for AutoPAP was written in September 2023, still does not have one - recently seen by employee adviser, and re-ordered sleep study / CPAP Assessment & Plan (05/13/2024 1:54 PM EDT): - sleep study at [facility] on 03/06/23, ordered by previous PCP - report recommends in-lab for titration study or auto-PAP 6-20 cm H2O - script for AutoPAP was written in September 2023, will check up on that Assessment & Plan (01/16/2024 11:20 AM EDT): - sleep study at [facility] on 03/06/23, ordered by previous PCP - report recommends in-lab for titration study or auto-PAP 6-20 cm H2O - script for AutoPAP was written in September 2023, will check up on that Assessment & Plan (10/06/2023 4:49 PM EDT): - sleep study at [facility] on 03/06/23, ordered by previous PCP - [...] Encounters Date Type Department Care Team Description 04/30/2025 Orders Only [facility] [address] [place] [address] Vivien Ohara MD Hypertension, unspecified type (Primary Dx); Type 2 diabetes mellitus without complication, without long-term current use of insulin (HCC); Vitamin D deficiency; Dyslipidemia 04/30/2025 Telephone [facility] [address] [place] [address] Vivien Ohara MD Lab Orders 04/23/2025 Refill [facility] [address] [place] [address] Vivien Ohara MD Mild intermittent asthma with acute exacerbation; Fibromyalgia 04/13/2025 Refill [facility] [address] [place] [address] Vivien Ohara MD Primary osteoarthritis involving multiple joints 04/13/2025 Refill [facility] [address] [place] [address] Vivien Ohara MD 04/13/2025 Refill [facility] [address] [place] [address] Vivien Ohara MD Primary hypertension 04/13/2025 Refill [facility] [address] [place] [address] Vivien Ohara MD Multinodular goiter 04/08/2025 Orders Only GENERIC EXTERNAL DATA DEPARTMENT Provider, Generic External Data 03/16/2025 Refill [facility] [address] [place] [address] Vivien Ohara MD Multinodular goiter; Primary hypertension 03/03/2025 Refill [facility] [address] [place] [address] Vivien Ohara MD 02/23/2025 Telephone [facility] [address] [place] [address] Vivien Ohara MD Telephone Call 02/19/2025 Orders Only [facility] [address] [place] [address] Vivien Ohara MD Type 2 diabetes mellitus without complication, without long-term current use of insulin ([facility]) (Primary Dx) 02/19/2025 Orders Only [facility] [address] [place] [address] Vivien Ohara MD 02/18/2025 Refill [facility] [address] [place] [address] Vivien Ohara MD Hypertension, unspecified type; Type 2 diabetes mellitus without complication, without long-term current use of insulin ([facility]) 02/18/2025 Telephone [facility] [address] [place] [address] Vivien Ohara MD Durable Medical Equipment 02/10/2025 Refill [facility] [address] [place], [place] [phone] Vivien Ohara MD 02/01/2025 3:00 PM EDT Office Visit [facility] [address] [place] [address] Vivien Ohara MD Hypertension, unspecified type (Primary Dx); Type 2 diabetes mellitus without complication, without long-term current use of insulin ([facility]); Dyslipidemia; Hypothyroidism, unspecified type; Vitamin D deficiency; Mixed stress and urge urinary incontinence; Mild intermittent asthma without complication; Skin lesions; Class 2 severe obesity due to excess calories with serious comorbidity and body mass index (BMI) of 39.0 to 39.9 in adult ([facility]); Kidney stone; Obstructive sleep apnea syndrome 02/01/2025 Orders Only GENERIC EXTERNAL DATA DEPARTMENT Provider, Generic External Data 02/01/2025 Travel from Last 3 Months Immunizations Immunization Administration [...] Description 05/04/2025 3:30 PM EDT Office Visit [facility] [address] [place] [address] Vivien Ohara MD [address] [place], [place] [phone] Health Maintenance Due Date Last Done Comments [...] 04/08/2026 04/08/2025, 05/01/2022 Eye Exam 04/30/2026 04/30/2024, 10/0 09/2023, 04/30/2024, [...] (NON ORDERABLE) Routine 04/08/2025 1:15 PM EDT PHOSPHOLIPASE A2 RECEPTOR (PLA2R) AB PANEL Routine 04/08/2025 1:15 PM EDT IMMUNOFIXATION, SERUM Routine 04/08/2025 1:15 PM EDT COMPLEMENT COMPONENT [...] Recently Relevant to Health Maintenance Results * Proteinase-3 Antibody (04/08/2025 1:15 PM EDT) Proteinase-3 Antibody <1.0 AI [facility] Comment:Value Interpretatio n ----- <1.0 No Antibody Detected > or = 1.0 Antibody DetectedAutoantibodies to proteinase-3 (CA-3) are accepted ascharacteristic for granulomatosis with polyangiitis(GPA, Tyra's), and are detectable in 95% of thehistologically proven cases. The cytoplasmic IFApattern, (c-ANCA), is based largely on autoantibody toPR-3 which serves as the primary antigen.These autoantibodies are present in active disease.THIS TEST WAS PERFORMED AT:[employer] [place] [phone] CAMERON MD 04/08/2025 1:15 PM EDT 04/08/2025 4:03 PM EDT us Generic External Data Provider LAB BLOOD ORDERAB LES Final Result Performing Organization Address [facility]/ZIP Co de Phone Number [facility] [address] [place] [phone] * Hepatitis B Surface Antigen (04/08/2025 1:15 PM EDT) Hepatitis B Surface Ag NEGATIVE Negative [facility] 04/08/2025 1:15 PM EDT 04/08/2025 4:03 PM EDT Generic External Data Provider HISTORICAL/NON OR DERABLE LABS Final Result Performing Organization Address [facility]/ZIP Co de Phone Number [facility] [address] [place] [phone] * Myeloperoxidase Antibody (MPO) (04/08/2025 1:15 PM EDT) Myeloperoxidase Antibody <1.0 AI [facility] Comment:Value Interpretation ----- <1.0 No Antibody Detected > or = 1.0 Antibody DetectedAutoantibodies to myeloperoxidase (MPO) are commonlyassociated with the following small-vesselvasculitides: microscopic polyangiitis,polyarteritis nodosa, Churg-Priyanka syndrome,necrotizing and crescentic glomerulonephritis andoccasionally granulomatosis with polyangiitis(GPA, Tyra's). The perinuclear IFA pattern,(p-ANCA) is based largely on autoantibody tomyeloperoxidase which serves as the primary antigen.These autoantibodies are present in active disease.THIS TEST WAS PERFORMED AT:[employer] [place] [phone] CAMERON MD 04/08/2025 1:15 PM EDT 04/08/2025 4:03 PM EDT Generic External Data Provider LAB BLOOD ORDERAB LES Final Result [facility] [address] [place] [phone] * (ABNORMAL) Protein Creatinine Ratio, Urine (04/08/2025 1:15 PM EDT) Creatinine, Urine 196.59 mg/dL [facility] Protein, Total, Random Urine 14(H) <12 mg/dL [facility] Protein/Creati nine Ratio, Ur 0.07 <0.2 [facility] Comment:The spot urine prote in:creatinine ratio may increase to 0.3during normal . 04/08/2025 1:15 PM EDT 04/08/2025 4:03 PM EDT Generic External Data Provider LAB URINE ORDERAB LES Final Result Performing Organization Address City/[facility] Co de Phone Number [facility] [address] [place] [address] [phone] * Phospholipase A2 Receptor (PLA2R) Antibody Panel (04/08/2025 1:15 PM EDT) Phospholipase A2 Receptor (PLA2R) Ab, VIPUL <4 RU/mL [facility] Comment:Reference Range: <14 : NEGATIVE 14-19: BORDERLINE >19: POSITIVE Phospholipase A2 Receptor (PLA2R) Ab, IFA NEGATIVE NEGATIVE [facility] Comment:THIS TEST WAS PERFOR MED AT:[employer] [id number] [place] [phone] WALKER MD,PHD,JIE 04/08/2025 1:15 PM EDT 04/08/2025 4:03 PM EDT Generic External Data Provider LAB BLOOD ORDERAB LES Final Result Performing Organization Address [facility] Co de Phone Number [facility] [address] [place] [phone] * Creatinine, Serum (04/08/2025 1:15 PM EDT) Creatinine, Serum 0.79 0.5 - 1.4 mg/dL [facility] Estimated Glomerular Filt Rate >60 [facility] Comment:Chronic Kidney Disea se: Estimated GFR < 60 mL/min/1.08x4Irlsfp Kidney Disease: Estimated GFR < 15 mL/min/1.73m2 04/08/2025 1:15 PM EDT 04/08/2025 4:03 PM EDT us Generic External Data Provider LAB BLOOD ORDERAB LES Final Result Performing Organization Address [facility] Co de Phone Number [facility] [address] [place] [phone] * (ABNORMAL) CBC auto differential (04/08/2025 1:15 PM EDT) White Blood Count 9.7 4.8 - 10.8 X10*3/uL [facility] Red Blood Count 4.41 4.20 - 5.50 X10*6/uL [facility] Hemoglobin 12.7 12.0 - 16.0 g/dl [facility] Hematocrit 37.2 37.0 - 47.0 % [facility] Mean Corpuscular Volume 84.4 80.0 - 98.0 fL [facility] Mean Corpuscular Hemoglobin 28.8 27.0 - 33.0 pg [facility] Mean Corpuscular HGB Conc 34.1 31.0 - 35.0 g/dl [facility] Red Cell Distribution Width 13.7 11.0 - 16.0 % [facility] Platelet Count 253 160 - 400 X10*3/uL [facility] Mean Platelet Volume 10.2 9.4 - 12.3 fL [facility] Neutrophils Percent Auto 59.6 45 - 73 % [facility] Imm Gran Pct Auto 0.4 0.0 - 0.4 % [facility] Lymphocytes Percent Auto 27.9 20 - 40 % [facility] Monocytes Percent Auto 8.1 2 - 11 % [facility] Eosinophils Percent Auto 3.6 0 - 4 % [facility] Basophils Percent Auto 0.4 0 - 2 % [facility] NRBC Pct Auto 0.0 0.0 - 0.2 /100WBC [facility] Neutrophils Absolute Auto 5.8 2.0 - 8.3 x10*3/uL [facility] Imm Gran Abs Auto 0.04(H) 0.00 - 0.03 X10*3/uL [facility] Lymphocytes Absolute Auto 2.7 1.2 - 4.9 X10*3/uL [facility] Monocytes Absolute Auto 0.8 0.1 - 1.2 X10*3/uL [facility] Eosinophils Absolute Auto 0.4 0.0 - 0.4 X10*3/uL [facility] Basophils Absolute Auto 0.0 0.0 - 0.2 X10*3/uL [facility] NRBC Abs Auto 0.000 0.0 - 0.012 X10*3/uL [facility] 04/08/2025 1:15 PM EDT 04/08/2025 4:03 PM EDT Generic External Data Provider LAB BLOOD ORDERAB LES Final Result Performing Organization Address [facility] Co de Phone Number [facility] [address] [place] [phone] * Hepatitis C Antibody with Reflex to HCV, RNA, Quantitative, Real-Time PCR (04/08/2025 1:15 PM EDT) Hepatitis C Antibody Nonreactive Nonreactive [facility] Comment:Antibodies to HCV no t detected; does not exclude early acuteHCV infection. 04/08/2025 1:15 PM EDT 04/08/2025 4:03 PM EDT Generic External Data Provider LAB BLOOD ORDERAB LES Final Result Performing Organization Address [facility] de Phone Number [facility] [address] [place] [phone] * Glomerular Basement Membrane Antibody (IgG) (04/08/2025 1:15 PM EDT) Glomerular Basement Memebrane Antibody (IgG) <1.0 AI [facility] Comment:Value Interpretation ----- <1.0 No Antibody Detected > or = 1.0 Antibody DetectedTHIS TEST WAS PERFORMED AT:[employer] [address] [phone] CAMERON MD 04/08/2025 1:15 PM EDT 04/08/2025 4:03 PM EDT Generic External Data Provider LAB BLOOD ORDERAB LES Final Result Performing Organization Address [facility] de Phone Number [facility] [address] [place] [phone] * DNA (ds) Antibody (04/08/2025 1:15 PM EDT) Anti DNA DS Antibody <1 IU/mL [facility] Comment:IU/mL Interpretation < or = 4 Negative 5-9 Indeterminate > or = 10 PositiveTHIS TEST WAS PERFORMED AT:[employer] [place] [phone] CAMERON MD 04/08/2025 1:15 PM EDT 04/08/2025 4:03 PM EDT Generic External Data Provider LAB BLOOD ORDERAB LES Final Result Performing Organization Address [facility] de Phone Number [facility] [address] [place] [phone] * Hepatitis B Core Antibody, Total (04/08/2025 1:15 PM EDT) Hepatitis B Core Antibody Nonreactive Nonreactive [facility] 04/08/2025 1:15 PM EDT 04/08/2025 4:03 PM EDT Generic External Data Provider LAB BLOOD ORDERAB LES Final Result Performing Organization Address [facility] de Phone Number [facility] [address] [place] [phone] * (ABNORMAL) Urinalysis Complete (04/08/2025 1:15 PM EDT) Color Urine Yellow [facility] Appearance Urine Cloudy [facility] PH 5.5 5.0 - 9.0 [facility] Glucose Urine UA Negative Negative mg/dL [facility] Urine Blood Small (1+)(A) Negative [facility] Specific [place] - Urine 1.020 1.005 - 1.025 [facility] Urine Protein Trace Neg-Trace mg/dL [facility] Urine Ketones Trace Negative mg/dL [facility] Nitrite Urine Negative Negative [facility] Leukocyte Esterase Urine Large (3+)(A) Negative [facility] RBC Urine 0-2 0 - 2 /HPF [facility] Urine WBC >50(A) 0 - 5 /HPF [facility] Urine Squamous Epithelial Cell 11-20 0 - 2 /HPF [facility] Urine Bacteria 3+ None Seen [facility] Hyaline Casts, Urine 0-2 0 - 2 /LPF [facility] 04/08/2025 1:15 PM EDT 04/08/2025 4:03 PM EDT Generic External Data Provider LAB URINE ORDERAB LES Final Result Performing Organization Address [facility] de Phone Number [facility] [address] [place] [phone] * (ABNORMAL) Immunofixation, Serum (04/08/2025 1:15 PM EDT) IMMUNOGLOBULIN G 1483 600 - 1540 mg/dL [facility] IMMUNOGLOBULIN A 599(A) 70 - 320 mg/dL [facility] Immunoglobulin M 74 50 - 300 mg/dL [facility] Comment:THIS TEST WAS PERFOR MED AT:[employer] [place] [phone] CAMERON MD Immunofixation Result SEE NOTE [facility] Comment:Normal pattern. No m onoclonal proteins detected. 04/08/2025 1:15 PM EDT 04/08/2025 4:03 PM EDT us Generic External Data Provider LAB BLOOD ORDERAB LES Final Result Performing Organization Address [facility] Co de Phone Number [facility] [address] [place] [phone] * Complement Component C3c (04/08/2025 1:15 PM EDT) Complement C3 176 83 - 193 mg/dL [facility] Comment:THIS TEST WAS PERFOR MED AT:[employer] [place] [phone] CAMERON MD 04/08/2025 1:15 PM EDT 04/08/2025 4:09 PM EDT us Generic External Data Provider LAB BLOOD ORDERAB LES Final Result Performing Organization Address [facility] Co de Phone Number [facility] [address] [place] [phone] * Complement Component C4c (04/08/2025 1:15 PM EDT) Complement C4 27 15 - 57 mg/dL [facility] Comment:THIS TEST WAS PERFOR MED AT:[employer] [address] [phone] CAMERON MD 04/08/2025 1:15 PM EDT 04/08/2025 4:09 PM EDT us Generic External Data Provider LAB BLOOD ORDERAB LES Final Result Performing Organization Address [facility] Co de Phone Number [facility] [address] [place] [phone] * BUN (Blood Urea Nitrogen) (04/08/2025 1:15 PM EDT) Urea Nitrogen (BUN) 16 9 - 16 mg/dL [facility] 04/08/2025 1:15 PM EDT 04/08/2025 4:03 PM EDT us Generic External Data Provider LAB BLOOD ORDERAB LES Final Result Performing Organization Address [facility]/ZIP Co de Phone Number [facility] [address] [place] [phone] * Calcium (04/08/2025 1:15 PM EDT) Calcium 8.9 8.4 - 10.2 mg/dL [facility] 04/08/2025 1:15 PM EDT 04/08/2025 4:03 PM EDT us Generic External Data Provider LAB BLOOD ORDERAB LES Final Result Performing Organization Address [facility] Co de Phone Number [facility] [address] [place] [phone] * (ABNORMAL) Electrolyte Panel (04/08/2025 1:15 PM EDT) Sodium 138 135 - 145 mmol/L [facility] Potassium 3.5 3.3 - 5.1 mmol/L [facility] Chloride 106 96 - 108 mmol/L [facility] Carbon Dioxide 25 22 - 29 mmol/L [facility] Anion Gap 11(L) 12 - 20 [facility] 04/08/2025 1:15 PM EDT 04/08/2025 4:03 PM EDT Generic External Data Provider LAB BLOOD ORDERAB LES Final Result Performing Organization Address [facility] de Phone Number [facility] [address] [place] [phone] * Cytopath-cell enhanced (02/01/2025 5:02 PM EDT) 02/01/2025 5:02 PM EDT 02/02/2025 9:12 AM EDT Narrative [facility] - 02/02/2025 4:06 PM EDT ----- ------- Name: Lia Deleon Age/Sex: 65/F : 1960 [id number] Unit#: [id number] Attend Dr: Nikunj Simon MD Re02/01/25 Status: [facility] REF Location: [facility] Disch: ----- ------- SPEC : [id number] RECD: 02/02/25 STATUS: KATARZYNA CHATMAN NUM: [id number] LORNA: 02/01/[address] [facility] [address]: Nikunj Simon MD ENTERED: 02/02/25-1029 SP TYPE: Cytology OT DR: Vivien Ohara [...] developed and their performance characteristics determined by [facility]. They have not been cleared or approved by the U.S. Food and Drug Administration (FDA). However, the FDA has determined that such clearance or approval is not necessary. This laboratory is certified under the Clinical Laboratory Improvement Amendments of 1988 (CLIA) as qualified to perform high complexity clinical laboratory testing. Copies To: Nikunj Simon MD [facility] [address] [place] [address] Dr. Castellanos [address] [place] [address] [email or web address] Vivien Ohara MD [address] [phone] CONTINUED ON NEXT PAGE ----- ------- Name: Lia Deleon Age/Sex: 65/F : 1960 Unit#: [id number] Attend Dr: Nikunj Simon MD Re02/01/25 Status: [facility] REF Location: .LAB Disch: ----- ------- SPEC : [id number] RECD: 02/02/25 STATUS: KATARZYNA HATFIELD NUM: [id number] LORNA: 02/01/25-1701 [facility] [address]: Nikunj Simon MD ENTERED: 02/02/25-1029 SP TYPE: Cytology OTHR DR: Vivien Ohara MD ORDERED: Cyto-enhanced ----- ------- Signed (signature on file) Bella Darnell MD 02/02/25 1606 ----- ------- END OF REPORT Generic External Data Provider LAB CYTOLOGY ORDE RABLES Final Result [facility] [address] [place] [phone] * POCT glucose manually resulted (02/01/2025 [...] 11:00 AM EDT) Triglycerides 200(H) <150 mg/dL [facility] Comment:Desirable Triglyceri de: less than 150 mg/dLBorderline High Triglyceride 150-199 mg/dLHigh Triglyceride: 200-499 mg/dLVery High Triglyceride: greater than or equal to 5OO mg/dL Cholesterol 180 <200 mg/dL [facility] Comment:Desirable Cholestero l: less than 200 mg/dLBorderline High Cholesterol: 200-239 mg/dLHigh Cholesterol: greater than 239 mg/dL LDL Cholesterol Calculated 95 <100 mg/dL [facility] Comment:Desirable LDL: less than 100 mg/dLNear Optimal/Above Optimal LDL: 110- 129 mg/dLBorderline High LDL: 130-159 mg/dLHigh LDL: 160-189 mg/dLVery High LDL: greater than or equal to 190 mg/dL HDL Cholesterol 45 >40 mg/dL [facility] Comment:Desirable HDL: great er than 40 mg/dL Note: This HDL assay may give artificially low results in patients with liver disease. Blood 05/13/2024 11:0 0 AM EDT 05/13/2024 11:37 AM EDT us Vivien Ohara MD LAB BLOOD ORDERABLES Final Resul t [facility] [address] [place] [phone] * BI Mammogram Screening Tomosynthesis Bilateral (01/07/2024 12:55 PM EDT) Anatomical Region Laterality Modality Breast Bilateral Mammography 01/07/2024 12:5 5 PM EDT Narrative 02/06/2024 9:41 AM EDT [facility] [address] [place] [address] Mammography Report Signed Patient: Lia Deleon MR#: [id number] : 1960 Acct:[id number] Age/Sex: 63 / F ADM Date: 01/07/24 Loc: BECK Attending Dr: Vivien Ohara MD Ordering Physician: Vivien Ohara MD Results: 1Negative Date of Service: 01/07/24 Follow Up: 1 Year From Orig inal Mammogram Procedure(s): MM tomosynthesis screening BI Accession Number(s): [id number] cc: Vivien Ohara MD EXAMINATION: MM SCREENING [...] in OV> 02/06/24 0937 DD/ 1255 TD/TT: Medical Records Coordinator: Procedure Note Donotuseinterpreter, Image - 02/06/2024 [facility] [address] [place] [address] Mammography Report Signed Patient: Lia Deleon#: [id number] : 9Acct:[id number] Age/Sex: 63 / FADM Date: 01/07/24 Loc: BECK Attending Dr: Vivien Ohara MD Ordering Physician: Vivien Ohara MDResults: 1Negative Date of Service: 01/07/24Follow Up: 1 Year From Orig inal Mammogram Procedure(s): MM tomosynthesis screening BI Accession Number(s): [id number] cc: Vivien Ohara MD EXAMINATION: MM SCREENING [...] in OV> 02/06/24 0937 DD/ 1255 TD/TT: Medical Records Coordinator: Vivien Ohara MD IMG BI PROCEDURES Final Result from Last 3 Months or Most Recently Relevant to Health Maintenance Insurance [facility] ASSISTED OPTIONS (O D-SNP) [place] [id number] Care Teams Brewing Director Relationship Specialty Start Date End Date Vivien Ohara MD [address] [place] [address] PCP - General Family Medicine 08/19/23
--- OUTSIDE RECORDS SUMMARY | 2025-05-01 09:40 | XMS_ITS | Encounter Summary ---
Author Organization [employer] Address [address] [facility] [address] 7t [place] [address] Care Team Providers Care Charge Gang Weigher Name Role Phone Vivien Ohara MD Primary Care Provider [phone] Reason for Visit * Reason Comments Med Refill Encounter Details Date Type Department Care Team ([facility] st Contact Info) Description 11/06/2023 Refill [facility] [address] [place] [address] Amanda Moreno MD [address] [place] [address] Social History Tobacco Use Types Packs/Day Years [...] Description 05/04/2025 3:30 PM EDT Office Visit [facility] [address] [place] [address] Vivien Ohara MD [address] [place] [phone] documented as of this encounter Visit Diagnoses Not on filedocumented in this encounter Additional Health Concerns Assessment Noted Time PHQ-9 Depression Total Score: 0 03/14/20 23 1:40 PM EDT documented as of this encounter Care Teams Charge Gang Weigher Relationship Specialty Start Date End Date Vivien Ohara MD [address] [place] [phone] PCP - General Family Medicine 08/19/23 documented as of this encounter
--- OUTSIDE RECORDS SUMMARY | 2025-05-01 09:40 | XMS_ITS | Encounter Summary ---
Author Organization [employer] Address [address] [facility] 7t [place] [address] Care Team Providers Care Flying I Instructor Name Role Phone Vivien Ohara MD Primary Care Provider Encounter Details Date Type Department Care Team ([facility] Contact Info) Description 10/27/2024 Orders Only [facility] [address] [place], [place] [phone] Vivien Ohara MD [address] [place] [address] Social History Tobacco Use Types Packs/Day Years [...] PM EDT Office Visit [facility] [address] [place] [phone] Vivien Ohara MD [address] [place] [address] documented as of this encounter Visit Diagnoses Not on filedocumented in this encounter Additional Health Concerns Assessment Noted Time PHQ-9 Depression Total Score: 13 025 12:01 PM EDT documented as of this encounter Care Teams Flying I Instructor Relationship Specialty Start Date End Date Vivien Ohara MD [address] [place] [address] [phone] PCP - General Family Medicine 08/19/23 documented as of this encounter
--- OUTSIDE RECORDS SUMMARY | 2025-05-01 09:40 | XMS_ITS | Encounter Summary ---
Author Organization [employer] Address [address] [facility] [address] 7t [place] [address] Care Team Providers Care Dormitory Keeper Name Role Phone Lakeisha Yadav NP Primary Care Provider [phone] Vivien Ohara MD Primary Care Provider [phone] Reason for Visit * Reason Comments Med Refill Encounter Details Date Type Department Care Team ([facility] st Contact Info) Description 08/17/2023 Refill [facility] [address] [place] [address] Name, MD Dylon [address] [place] [address] Mild intermittent asthma with acute exacerbation Social [...] 3:30 PM EDT Office Visit [facility] [address] [place] [phone] Vivien Ohara MD [address] [place] [address] documented as of this encounter Visit Diagnoses Diagnosis Mild intermittent asthma with acute exacerbation documented in this encounter Additional Health Concerns Assessment Noted Time PHQ-9 Depression Total Score: 0 03/14/20 23 1:40 PM EDT documented as of this encounter Care Teams Dormitory Keeper Relationship Specialty Start Date End Date Lakeisha Yadav NP [address] [place] [address] PCP - General Family Medicine 05/03/23 08/18/23 Vivien Ohara MD [address] [place] [address] PCP - General Family Medicine 08/19/23 documented as of this encounter
--- OUTSIDE RECORDS SUMMARY | 2025-05-01 09:40 | XMS_ITS | Encounter Summary ---
Author Organization [employer] Address [address] [place] [address] 7t [place] [address] Care Team Providers Care Handtools Repairer Name Role Phone Kandi VanessaP Primary Care Provider Lakeisha Barclay NP Primary Care Provider [phone] Vivien Ohara MD Primary Care Provider [phone] Reason for Visit * Reason Onset Date Comments Results 08/03/2022 Encounter Details Date Type Department Care Team ([facility] st Contact Info) Description 08/03/2022 Telephone [facility] [address] [place] [address] Kandi Vanessa FNP Results Social History Tobacco [...] 3:30 PM EDT Office Visit [facility] [address] [place] [address] Vivien Ohara MD [address] [place] [address] documented as of this encounter Visit Diagnoses Not on filedocumented in this encounter Care Teams Handtools Repairer Relationship Specialty Start Date End Date Kandi Vanessa FNP PCP - General Family Medicine 03/07/22 05/02/23 Lakeisha Yadav NP [address] [place] [address] PCP - General Family Medicine 05/03/23 08/18/23 Vivien Ohara MD [address] [place] [address] PCP - General Family Medicine 08/19/23 documented as of this encounter
--- OUTSIDE RECORDS SUMMARY | 2025-05-01 09:40 | XMS_ITS | Encounter Summary ---
Author Organization [employer] Address [address] [facility] 7t [place] [address] Care Team Providers Care Hoist Operator Name Role Phone Vivien Ohara MD Primary Care Provider [phone] Reason for Visit * Reason Comments Med Refill Encounter Details Date Type Department Care Team ([facility] st Contact Info) Description 05/14/2024 Refill [facility] [address] [place], [place] [phone] Vivien Ohara MD [address] [place], [place] [phone] Mild intermittent asthma with acute exacerbation Social [...] Description 05/04/2025 3:30 PM EDT Office Visit [facility] [address] [place] [phone] Vivien Ohara MD [address] [place] [address] documented as of this encounter Visit Diagnoses Diagnosis Mild intermittent asthma with acute exacerbation documented in this encounter Additional Health Concerns Assessment Noted Time PHQ-9 Depression Total Score: 0 03/14/20 23 1:40 PM EDT documented as of this encounter Care Teams Hoist Operator Relationship Specialty Start Date End Date Vivien Ohara MD [address] [place] [address] [phone] PCP - General Family Medicine 08/19/23 documented as of this encounter
--- OUTSIDE RECORDS SUMMARY | 2025-05-01 09:40 | XMS_ITS | Encounter Summary ---
Author Organization [employer] Address 75 [facility] 7t [place] [address] Care Team Providers Care Timber Watchman Name Role Phone Vivien Ohara MD Primary Care Provider [phone] Reason for Visit * Reason Onset Date Comments Lab Orders 04/30/2025 Encounter Details Date Type Department Care Team ([facility] Contact Info) Description 04/30/2025 Telephone [facility] 230 [place], [place] [phone] Vivien Ohara MD [address] [place], [place] [phone] Lab Orders Social History Tobacco Use Types Packs/Day Years [...] encounter Miscellaneous Notes * Telephone Encounter - Verna Arriaga - 04/30/2025 1:21 PM EDT Patient walked in wants to know if PCP needs her to get blood work done before appointment. Patientwas advised no lab work on file, still wants message sent to PCP to confirm. documented in this encounter Plan of Treatment Upcoming Encounters Date Type Department Care Team (Late st Contact Info) Description 05/04/2025 3:30 PM EDT Office Visit [facility] [address] [place] [address] Vivien Ohara MD [address] [place] [address] documented as of this encounter Visit Diagnoses Not on filedocumented in this encounter Additional Health Concerns Assessment Noted Time PHQ-9 Depression Total Score: 13 025 12:01 PM EDT documented as of this encounter Care Teams Timber Watchman Relationship Specialty Start Date End Date Vivien Ohara MD [address] [place] [phone] PCP - General Family Medicine 08/19/23 documented as of this encounter
--- OUTSIDE RECORDS SUMMARY | 2025-05-01 09:40 | XMS_ITS | Encounter Summary ---
Author Organization [employer] Address [address] [facility] 7t [place] [address] Care Team Providers Care Service Desk Lead Name Role Phone Vivien Ohara MD Primary Care Provider [phone] Reason for Visit * Reason Onset Date Comments Med Refill 04/13/2025 Encounter Details Date Type Department Care Team ([facility] Contact Info) Description 04/13/2025 Refill [facility] [address] [place], [place] [phone] Vivien Ohara MD [address] [place], [place] [phone] Primary hypertension Social History Tobacco Use Types [...] Description 05/04/2025 3:30 PM EDT Office Visit [facility] [address] [place] [address] Vivien Ohara MD [address] [place] [address] documented as of this encounter Visit Diagnoses Diagnosis Primary hypertension Unspecified essential hypertension documented in this encounter Additional Health Concerns Assessment Noted Time PHQ-9 Depression Total Score: 13 025 12:01 PM EDT documented as of this encounter Care Teams Service Desk Lead Relationship Specialty Start Date End Date Vivien Ohara MD [address] [place] [address] PCP - General Family Medicine 08/19/23 documented as of this encounter
--- OUTSIDE RECORDS SUMMARY | 2025-05-01 09:40 | XMS_ITS | Encounter Summary ---
Author Organization [employer] Address [address] [facility] 7t [place] [address] Care Team Providers Care Security Systems Engineer Name Role Phone Kandi Vanessa Ciera NORTONP Primary Care Provider Lakeisha Barclay NP Primary Care Provider [phone] Vivien Ohara MD Primary Care Provider [phone] Reason for Visit * Reason Comments Med Refill Encounter Details Date Type Department Care Team ([facility] Contact Info) Description 08/14/2022 Refill [facility] [address] [place] [address] Hailey Gomez MD [address] [place] [address] Cough in adult Social History Tobacco Use [...] Upcoming Encounters Date Type Department Care Team ([facility] Contact Info) Description 05/04/2025 3:30 PM EDT Office Visit [facility] [address] [place] [address] Vivien Ohara MD [address] [place] [address] documented as of this encounter Visit Diagnoses Diagnosis Cough in adult documented in this encounter Care Teams Security Systems Engineer Relationship Specialty Start Date End Date Kandi Vanessa FNP PCP - General Family Medicine 03/07/22 05/02/23 Lakeisha Yadav NP [address] [place] [address] PCP - General Family Medicine 05/03/23 08/18/23 Vivien Ohara MD [address] [place] [phone] PCP - General Family Medicine 08/19/23 documented as of this encounter
--- OUTSIDE RECORDS SUMMARY | 2025-05-01 09:41 | XMS_ITS | Encounter Summary ---
Author Organization [employer] Address [address] [facility] 7t [place] [address] Care Team Providers Care Computer Systems Technician Name Role Phone Vivien Ohara MD Primary Care Provider [phone] Reason for Visit * Reason Comments Med Refill Encounter Details Date Type Department Care Team ([facility] st Contact Info) Description 05/04/2024 Refill [facility] 230 [place], [place] [phone] Vivien Ohara MD [address] [place], [place] [phone] Social History Tobacco Use Types Packs/Day Years [...] 05/04/2025 3:30 PM EDT Office Visit [facility] [address] [place] [address] Vivien Ohara MD [address] [place] [address] documented as of this encounter Visit Diagnoses Not on filedocumented in this encounter Additional Health Concerns Assessment Noted Time PHQ-9 Depression Total Score: 0 03/14/20 23 1:40 PM EDT documented as of this encounter Care Teams Computer Systems Technician Relationship Specialty Start Date End Date Vivien Ohara MD [address] [place] [address] [phone] PCP - General Family Medicine 08/19/23 documented as of this encounter
--- OUTSIDE RECORDS SUMMARY | 2025-05-01 09:41 | XMS_ITS | Encounter Summary ---
Author Organization [employer] Address [address] [facility] 7t [place] [address] Care Team Providers Care Assistant Manager Airside Operations Name Role Phone Vivien Ohara MD Primary Care Provider [phone] Reason for Visit * Reason Onset Date Comments Med Refill 03/10/2024 Encounter Details Date Type Department Care Team ([facility] Contact Info) Description 03/10/[address] [facility] [address] [place], [place] [phone] Vivien Ohara MD 230 [place], [place] [phone] Primary osteoarthritis involving multiple joints Social History [...] Description 05/04/2025 3:30 PM EDT Office Visit [facility] [address] [place] [phone] Vivien Ohara MD [address] [place] [address] documented as of this encounter Visit Diagnoses Diagnosis Primary osteoarthritis involving multiple joints documented in this encounter Additional Health Concerns Assessment Noted Time PHQ-9 Depression Total Score: 0 03/14/20 23 1:40 PM EDT documented as of this encounter Care Teams Assistant Manager Airside Operations Relationship Specialty Start Date End Date Vivien Ohara MD [address] [place] [phone] PCP - General Family Medicine 08/19/23 documented as of this encounter
--- OUTSIDE RECORDS SUMMARY | 2025-05-01 09:41 | XMS_ITS | Encounter Summary ---
Author Organization [employer] Address [address] [place] [address] 7 [place] [address] Care Team Providers Care Sailboat Captain Name Role Phone Vivien Ohara MD Primary Care Provider [phone] Reason for Referral * Consultation (Routine) - Closed Specialty Diagnoses / Procedures Referred By Contac t Referred To Contact Pharmacy Diagnoses Type 2 diabetes mellitus without complication, without long-term current use of insulin (HCC) Hypertension, unspecified type Vivien Ohara MD [address] [place] [address] Phone: tel: fax: Referral ID Status Reason Start Date Expiration Date V isits Requested Visits Authorized [id number] Closed Continuity of Care 04/29/2024 04/29/2025 6 6 Encounter Details Date Type Department Care Team (Late st Contact Info) Description 04/29/2024 Orders Only [facility] [address] [place], [place] [phone] Vivien Ohara MD [address] [place], [place] [phone] Type 2 diabetes mellitus without complication, without [...] 3:30 PM EDT Office Visit [facility] [address] [place] [address] Vivien Ohara MD [address] [place] [address] Scheduled Referrals Name Type Priority Associated Diagnoses Orde r Schedule Referral to Pharmacy MT Outpatient Referral Routine Type 2 diabetes mellitus without complication, without long-term current use of insulin ([facility]) Hypertension, unspecified type Ordered: 04/29/2024 documented as of this encounter Visit Diagnoses Diagnosis Type 2 diabetes mellitus without complication, without long-term current use of insulin ([facility])- Primary Hypertension, unspecified type documented in this encounter Additional Health Concerns Assessment Noted Time PHQ-9 Depression Total Score: 0 03/14/20 23 1:40 PM EDT documented as of this encounter Care Teams Sailboat Captain Relationship Specialty Start Date End Date Vivien Ohara MD [address] [place] [address] PCP - General Family Medicine 08/19/23 documented as of this encounter
--- OUTSIDE RECORDS SUMMARY | 2025-05-01 09:41 | XMS_ITS | Encounter Summary ---
Author Organization [employer] Address 75 [facility] 7t [place] [address] Care Team Providers Care Peer Support Specialist Name Role Phone Vivien Ohara MD Primary Care Provider Encounter Details Date Type Department Care Team ([facility] st Contact Info) Description 02/19/2025 Orders Only [facility] 230 [place], [place] [phone] Vivien Ohara MD [address] [place] [address] Type 2 diabetes mellitus without complication, without long-term current use of insulin ([facility]) (Primary Dx) Social History Tobacco Use Types [...] 3:30 PM EDT Office Visit [facility] [address] [place] [phone] Vivien Ohara MD [address] [place] [address] documented as of this encounter Visit Diagnoses Diagnosis Type 2 diabetes mellitus without complication, without long-term current use of insulin (HCC)- Primary documented in this encounter Additional Health Concerns Assessment Noted Time PHQ-9 Depression Total Score: 13 025 12:01 PM EDT documented as of this encounter Care Teams Peer Support Specialist Relationship Specialty Start Date End Date Vivien Ohara MD [address] [place] [address] [phone] PCP - General Family Medicine 08/19/23 documented as of this encounter
--- OUTSIDE RECORDS SUMMARY | 2025-05-01 09:41 | XMS_ITS | Encounter Summary ---
Author Organization [employer] Address [address] [facility] [address] [place] [address] Care Team Providers Care Track Layer Name Role Phone Vivien Ohara MD Primary Care Provider [phone] Encounter Details Date Type Department Care Team ([facility] Contact Info) Description 02/19/2025 Orders Only [facility] [address] [place], [place] [phone] Vivien Ohara MD [address] [place] [address] Social History Tobacco Use Types Packs/Day Years [...] [facility] [address] [place] [address] Vivien Ohara MD [address] [place] [address] documented as of this encounter Visit Diagnoses Not on filedocumented in this encounter Additional Health Concerns Assessment Noted Time PHQ-9 Depression Total Score: 13 025 12:01 PM EDT documented as of this encounter Care Teams Track Layer Relationship Specialty Start Date End Date Vivien Ohara MD [address] [place], [place] [phone] PCP - General Family Medicine 08/19/23 documented as of this encounter
[2025-05-01 11:07] LABS: Appearance Urine Clear; Glucose Urine UA Negative (Negative); PH 6.5 (5.0-9.0); Specific Gravity - Urine 1.015 (1.005-1.025); UMIC TRIGGER UA YES
[2025-05-01 11:38] LABS: Alanine Aminotransferase 19 U/L (0-31); Albumin Level 4.0 g/dL (3.5-5.0); Alkaline Phosphatase 89 U/L (39-117); Aspartate Amino Transferase 24 U/L (5-31); Cholesterol 187 mg/dL (<200); HDL Cholesterol 41 mg/dL (>40); Total Protein 7.3 g/dL (6.5-8.0); Triglycerides 244 mg/dL (<150)
[2025-05-01 12:58] LABS: Reflex LDLD? No
== END 2025-05-01 09:37 | disposition home or self-care (01) ==
LOC: HO.LAB 09:36
PROVIDERS: Internal Medicine Nephrology; PCP Family Medicine; Visit Provider Family Medicine
DX: E78.5 Hyperlipidemia, unspecified (principal); E55.9 Vitamin D deficiency, unspecified
CPT/HCPCS: 36415; 80061; 80076; 81001; 81003; 82306

== ENCOUNTER 2025-05-07 11:49 | Outpatient (REF) | payer OTHER, SELFPAY ==
--- NOTE | ~2025-05-07 | XR_ITS ---
EXAMINATION: XR FOOT, RIGHT CLINICAL INFORMATION: heel pain COMPARISON: None available. TECHNIQUE: AP, lateral, and oblique views of the right foot. FINDINGS: Bone alignment is normal. No fracture or dislocation. Normal joint spaces. Calcaneal spurs. XR/XR foot RT min 3V IMPRESSION: Calcaneal spurs. Electronically signed by: Wanda Kovacs MD 05/07/2025 01:12 PM EDT
--- NOTE | ~2025-05-07 | XR_ITS ---
EXAMINATION: XR FOOT, LEFT CLINICAL INFORMATION: pain in plantar / forefoot. ?neuroma. COMPARISON: None available. TECHNIQUE: AP, lateral, and oblique views of the left foot. FINDINGS: The bony alignment is normal. No fracture or dislocation. Normal joint spaces. Short fourth metacarpal bone. Calcaneal spurs. Soft tissues are otherwise unremarkable. XR/XR foot LT min 3V IMPRESSION: Calcaneal spurs. Short fourth metacarpal bone. Electronically signed by: Wanda Kovacs MD 05/07/2025 01:11 PM EDT
== END 2025-05-07 11:50 | disposition home or self-care (01) ==
LOC: HO.HHCX 11:49
PROVIDERS: PCP Family Medicine; Visit Provider Family Medicine
DX: M79.671 Pain in right foot (principal); M79.672 Pain in left foot
CPT/HCPCS: 73630

== ENCOUNTER → 2025-05-07 11:55 | Outpatient (BNV) | payer OTHER, SELFPAY | PROVIDERS: PCP Family Medicine; Visit Provider Radiology Diagnostic Radiology | DX: M77.32 Calcaneal spur, left foot (principal); M77.31 Calcaneal spur, right foot | CPT/HCPCS: 73630 ==